=== PATIENT | female | born 1965 | race Caucasian/White ===

== ENCOUNTER 2016-08-27 16:01 | Emergency (ER) | payer OTHER ==
[2016-08-27 16:14] VITALS: BMI 26.6
--- NOTE | 2016-08-27 16:15 | PDOC ---
[id number]DbYQCGXOUEEEFEAAM2XSGQXiNSVYe8zGTVMxfiLZPDJlJ TaLPSAxFiCgo9UXFWQJC KpwiyHuL35mMJfJXNvmxSzBZ8jtKcbs5XO+ JYw0hE73wLujn4nEEskbTbcMPUtmgDaqON4UOenEFlIxB3I/uk01N1KZTgKlmEATMQPCTTDEFBis/ 05Ll3HAADq3yVUMWX8AKb8S76upDypoePBEYuy86iNKP/ PA8cCmuMtbZKtOPN91hOSJYhBT5hRIJ7MCSJUIGXJRNut7SpPhnBrSPZX3d2/ Y7URjHJbTWTr0Z2yApqBJrqvWTIvcEQPVmtDlVVhvnub1wS+ 1MgOFncEgQEuIwVhcbsTP4MHGtWYZpFXfOQENfHN7oJkpIzMS0OK01T21UHC6MYqHeNAU7Ww2XAQ5Npj mLXTirI /1Fkzpp7wAdvXQIE+ TdaLmtq349Csy46XvgVXcxPNYQ4dNWkiRh30D9TUPWygPUnsAzefr00po3zrNyLgSYYMJ15szmNLVWTH uYOVWqtF6ZpZLWEal9mc2wY1WO0pa98L8k9dtUkXCYiUe04 +hAW+8sn2CS2cM08ymI5d37B/0gTHbLbTsTggw/PmlkThPkwYXmB9YwwgGMBgMhNZAIfa0WkritEnqY/ 86l3R1dBmRvzpF8kN1uY6TdBKoriNV708LEe9Ob8WI2ksE7yfgIZvcGiSeb0O6lvombItPzXOU2PLK5f bLRh2yFN0w7FAySY177HWADRi2Xan /7gndtbyNwOEPin3NcZhpU/3G9JYLYR3es/PbdIpD+VGiWuHlWcr9Ke4SljR+ sBKHcWoCxjfcpFPAjeFoQEjRVPZe4RgIyNklncLfvw1iO0VwVpgVn7IkBVBi07TDv2S4kB1VbHq892TA o7bhTbR3VZeFzuoDaZoliWst /j4JQgEGEJxMSrQfp3VvL9bNCr5TCtIN1LVPtNKTDysQ4LV8JLJ1jYgKWBGKYgUBcOrBxIC 08/27/16 17:15 Medical Decision Making - Medical Decision Making 08/27/16 16:09 Pt has chronic hypokalemia; She also has asthma, and states that she used 4 albuterol inhalers prior to arrival which likely knocked her potassium further down. Pt comes to the ER because she feels she needs potassium. Medical problems include asthma, hypokalemia. She states that she lives with her son; she has not left her home secondary to bad bronchitis. Pt feels weak and she feels she has a fever. Pt got the flu shot this year. *DC/Admit/Observation/Transfer Diagnosis at time of Disposition: Bronchitis - Discharge Dispostion Disposition: HOME Condition at time of disposition: Improved - Prescriptions Prescriptions: Albuterol 2.5/Ipratropium 0.5 [Duoneb -] 1 neb NEB Q4H #30 vial Albuterol Sulfate Inhaler - [Ventolin HFA Inhaler -] 1 - 2 inh PO Q4H #1 inhaler - Referrals Referrals: Shoshana Roman MD [Primary Care Provider] - - Patient Instructions Printed Discharge Instructions: DI for Acute Bronchitis
--- NOTE | 2016-08-27 16:48 | PDOC ---
History of Present Illness - General Chief Complaint: Chest Pain Stated Complaint: CHEST PAIN Time Seen by Provider: 08/27/16 16:09 History Source: Patient Exam Limitations: No Limitations - History of Present Illness Initial Comments: 08/27/16 19:51 The patient is a 50 year old female, with a significant past medical history of chronic hypokalemia (unknown still being tested by residential instructor) , SVT, and asthma who presents to the emergency department with possible low potassium. She states that she used 4 albuterol inhalers prior to arrival which she states likely knocked her potassium down. She reports also having a previous recent diagnosis of bronchitis, with associated SOB, mild cough and subjective fevers. She also notes having a productive cough worse at night for about 6 weeks. Patient got the flu shot this year. She denies recent chills, headache, hemoptysis, leg swelling/pain or dizziness. She denies recent nausea, vomit, diarrhea or constipation. Beta Mark Contraindications (Core Measure): Yes: Not Prescribed Past History - Past Medical History Allergies/Adverse Reactions: Allergies Allergy/AdvReac Type Severity Reaction Status Date / Time latex Allergy Mild Verified 04/19/16 17:54 lidocaine Allergy Verified 04/19/16 17:54 paprika Allergy Verified 04/19/16 17:57 peanut Allergy Difficulty Verified 04/19/16 17:54 Breathing procaine HCl [From Novocain] Allergy Verified 04/19/16 17:54 shrimp Allergy Mild Hives Uncoded 04/19/16 17:54 POLYURETHANE Allergy Swelling Uncoded 04/19/16 17:54 Home Medications: Ambulatory Orders Potassium Chloride [K-Tab ER] 10 meq PO BID 02/05/16 Azithromycin [Zithromax Tri-Amandeep (3 DAYS) -] 500 mg PO DAILY #3 tablet 08/27/16 Estradiol [Estrace] 0.5 mg PO DAILY 08/27/16 Anemia: (HYPOKALEMIA) Asthma: Yes Cardiac Disorders: Yes (SVT) Disorders: Yes (right ovarian cyst status post surgery, status post hysterectomy, still has) HTN: Yes (?) Kidney Stones: (Kidney problems.) Suicide Attempt (Hx): No - Surgical History Abdominal Surgery: Yes (hysterectomy and right oophorectomy) - Family Disease History Family Disease History: Diabetes: Mother - Immunization History Td Vaccination: No TDAP Vaccination: No Immunization Up to Date: Yes - Psycho/Social/Smoking Cessation Hx Anxiety: No Suicidal Ideation: No Smoking Status: No Smoking History: Never smoked Years of Tobacco Use: 0 Have you smoked in the past 12 months: No Number of Cigarettes Smoked Daily: 0 Cigars Per Day: 0 Information on smoking cessation initiated: No Hx Alcohol Use: No Drug/Substance Use Hx: No Substance Use Type: None Cardiac Specific PMH - Complaint Specific PMHX Angina: No Cardiac Arrhythmia: No GERD: No Peripheral Vascular Disease: No Review of Systems - Review of Systems Able to Perform ROS?: Yes Comments:: 08/27/16 19:52 CONSTITUTIONAL: +Low potassium and subjective fevers. No reported: Chills, Diaphoresis, Generalized Weakness, Malaise, Loss of Appetite HEENT: +Rhinorrhea. No reported: Nasal Congestion, Throat Pain, Throat Swelling, Difficulty Swallowing, Mouth Swelling, Ear Pain, Eye Pain, Visual Changes CARDIOVASCULAR: No reported: Syncope, Palpitations, Irregular Heart Rate, Lightheadedness, Peripheral Edema RESPIRATORY: +cough and SOB. No reported: Wheezing, Stridor, Hemoptysis GASTROINTESTINAL: No reported: Abdominal pain, Abdominal Distension, Nausea, Vomiting, Diarrhea, Constipation, Melena, Hematochezia GENITOURINARY: No reported: Dysuria, Frequency, Urgency, Hesitancy, Flank Pain, Genital Pain MUSCULOSKELETAL: No reported: Myalgia, Arthralgia, Joint Swelling, Back pain, Neck Pain SKIN: No reported: Rash, Itching, Pallor HEMEATOLOGIC/IMMUNOLOGIC: No reported: Easy Bleeding, Easy Bruising, Lymphadenopathy, Frequent infections ENDOCRINE: No reported: Unexplained Weight Gain, Unexplained Weight Loss, Heat Intolerance , Cold Intolerance NEUROLOGIC: No reported: Headache, Focal Weakness, Paresthesias, Vertigo, Lightheadedness, Unsteady Gait, Seizure, Mental Status Changes, Incontinence PSYCHIATRIC: No reported: Anxiety, Depression *Physical Exam - Vital Signs Last Vital Signs Temp Pulse Resp BP Pulse Ox 98.9 F 87 18 117/78 100 08/27/16 19:22 08/27/16 19:22 08/27/16 19:22 08/27/16 19:22 08/27/16 19:22 - Physical Exam Comments: 08/27/16 19:52 GENERAL: The patient is awake, alert, and fully oriented, Nontoxic - in no acute distress. HEAD: Normocephalic, atraumatic. EYES: extraocular movements intact, sclera anicteric, conjunctiva clear. ENT: Normal voice, Moist mucous membranes. NECK: Normal range of motion, supple LUNGS: Breath sounds equal, clear to auscultation bilaterally. No wheezes, no rhonchi, no rales. HEART: Regular rate and rhythm, without murmur, rub or gallop. ABDOMEN: Soft, nontender, normoactive bowel sounds. No guarding, no rebound.No CVA tenderness EXTREMITIES: Normal range of motion, no edema. No clubbing or cyanosis. No cords , erythema, or tenderness. NEUROLOGICAL: No facial asymmetry, Normal speech. PSYCH: Normal mood, normal affect. SKIN: Warm, Dry, normal turgor. Heart Score/ECG Review - ECG Impressions Comment:: 08/27/16 17:54 Twelve-lead EKG was performed and reviewed by me. There is normal sinus rhythm with a normal rate. Rate of 78 The axis is normal. The intervals are normal. There is normal R wave progression There are no ST or T wave abnormalities. Impression: Normal twelve-lead EKG ED Treatment Course - LABORATORY CBC & Chemistry Diagram: 08/27/16 17:55 08/27/16 17:15 - ADDITIONAL ORDERS Additional order review: Laboratory Results 08/27/16 08/27/16 17:15 16:23 Sodium 140 Potassium 3.6 Chloride 104 Carbon Dioxide 30 Anion Gap 6 L BUN 16 D Creatinine 0.6 Creat Clearance w eGFR > 60 Random Glucose 95 Calcium 8.5 Magnesium 2.1 Total Bilirubin 0.4 D AST 16 D ALT 18 D Alkaline Phosphatase 68 Total Protein 6.8 Albumin 3.9 Urine Color Ltyellow Urine Appearance Clear Urine pH 6.0 Ur Specific [place] 1.016 Urine Protein Negative Urine Glucose (UA) Negative Urine Ketones Negative Urine Blood Negative Urine Nitrite Negative Urine Bilirubin Negative Urine Urobilinogen Negative Ur Leukocyte Esterase Negative Urine HCG, Qual Negative 08/27/16 17:55 RBC 4.40 MCV 86.3 MCHC 33.8 RDW 13.9 MPV 7.6 Neutrophils % 57.9 Lymphocytes % 32.2 D Monocytes % 6.6 Eosinophils % 2.5 D Basophils % 0.8 - Medications Given in the ED: ED Medications Discontinued Medications Generic Name Dose Route Start Last Admin Trade Name Freq PRN Reason Stop Dose Admin Albuterol/Ipratropium 1 amp 08/27/16 18:35 08/27/16 18:35 Duoneb - NEB 08/27/16 18:36 1 amp ONCE ONE Administration Medical Decision Making - Medical Decision Making 08/27/16 17:24 50y F hx of hypokalemia, asthma, preseents with concern for k - pt states she has been having an mild intermittent cough x 6 weeks, has been using her nebs, and is concerned that might be decraesing her K. pt feeling generally weak. endorses some frida tightness c/w with her asthma/bronchitis that she has occasionally. denies any hemoptysis, leg swelling. will ck ekg to scren for k+ deragements will ck cmp, cxr pts sypmtoms inconsistent with acs. 08/27/16 18:23 labs fairly unremarkable K+ 3.6 awaiting cxr 08/27/16 19:07 cxr negative michelle dc the pt with pmd fu return precautions were discussed I discussed the physical exam findings, ancillary test results and final diagnoses with the patient. I answered all of the patient's questions. The patient was satisfied with the care received and felt comfortable with the discharge plan and treatment plan. The patient will call their primary care physician within 24 hours to arrange follow-up and will return to the Emergency Department with any new, persistent or worsening symptoms. 08/27/16 19:53 *DC/Admit/Observation/Transfer Diagnosis at time of Disposition: Bronchitis - Discharge Dispostion Disposition: HOME Condition at time of disposition: Improved Admit: No - Referrals Referrals: Shoshana Roman MD [Primary Care Provider] - - Patient Instructions Printed Discharge Instructions: DI for Acute Bronchitis
[2016-08-27 17:50] LABS: URINE APPEARANCE CLEAR; URINE BILIRUBIN NEGATIVE (NEGATIVE); URINE BLOOD NEGATIVE (NEGATIVE); URINE COLOR LTYELLOW; URINE GLUCOSE (UA) NEGATIVE (NEGATIVE); URINE KETONE NEGATIVE (NEGATIVE); URINE LEUK ESTERASE NEGATIVE (NEGATIVE); URINE NITRITE NEGATIVE (NEGATIVE); URINE PROTEIN NEGATIVE (NEGATIVE); URINE UROBILINOGEN NEGATIVE E.U./dl (0.2-1.0)
[2016-08-27 17:52] LABS: ALBUMIN 3.9 g/dl (3.4-5.0); ALK PHOS 68 U/L (45-117); ANION GAP 6 (8-16); BILIRUBIN,TOTAL 0.4 mg/dL (0.2-1.0); CALCIUM 8.5 mg/dL (8.5-10.1); CO2 30 mmol/L (21-32); CREATININE 0.6 mg/dL (0.55-1.02); GLUCOSE,RANDOM 95 mg/dL (74-106); MAGNESIUM 2.1 mg/dL (1.8-2.4); SGOT/AST 16 U/L (15-37); SGPT/ALT 18 U/L (12-78); TOT PROT 6.8 g/dl (6.4-8.2)
[2016-08-27 18:07] LABS: BASOPHIL 0.8 % (0-2.0); EOSINOPHIL 2.5 % (0-4.5); MCH 29.2 pg (25.7-33.7); MCHC 33.8 g/dl (32.0-36.0); MEAN CELL VOLUME 86.3 fl (80-96); MEAN PLT VOLUME 7.6 fl (7.5-11.1); NEUTROPHILS 57.9 % (42.8-82.8); PLATELET COUNT 232 K/MM3 (134-434); RDW 13.9 % (11.6-15.6)
[2016-08-27] MEDS ORDERED: ALBUTEROL SO4 2.5/IPRATROPIUM 0.5 INH SOL 3 ML VIAL.NEB. NEB ONE ×2 (18:35→19:57)
[2016-08-27 19:22] VITALS: BP 117/78; PULSE 87; TEMP 98.9
--- NOTE | 2016-08-28 13:48 | EKG ---
Test Reason : Blood Pressure : / mmHG Vent. Rate : 078 BPM Atrial Rate : 078 BPM P-R Int : 142 ms QRS Dur : 088 ms QT Int : 400 ms P-R-T Axes : 067 065 054 degrees QTc Int : 456 ms NORMAL SINUS RHYTHM NONSPECIFIC ST ABNORMALITY ABNORMAL ECG WHEN COMPARED WITH ECG OF 19-APR-2016 18:23, NO SIGNIFICANT CHANGE WAS FOUND Confirmed by JO-ANN ALNG MD ([id number]) on 08/28/2016 1:48:12 PM Referred By: Confirmed By:JO-ANN LANG MD
== END 2016-08-27 20:18 | disposition home or self-care (01) ==
LOC: JER 16:01
PROC: 3E0F7GC Introduction of Other Therapeutic Substance into Respiratory Tract, Via Natural or Artificial Opening (ICD-10-PCS; principal; 2016-08-27)
DX: J20.9 Acute bronchitis, unspecified (principal); E87.6 Hypokalemia; J45.909 Unspecified asthma, uncomplicated
CPT/HCPCS: 36415; 71020-TC; 80053; 81003; 83735; 84703; 85025; 93005; 93010; 94640; 99283-25

== ENCOUNTER 2017-02-18 23:24 | Emergency (ER) | payer OTHER ==
[2017-02-19 00:33] VITALS: BP 156/110; PULSE 82; TEMP 97.8; BMI 30.9
--- NOTE | 2017-02-19 00:51 | PDOC ---
History of Present Illness - General History Source: Patient Exam Limitations: No Limitations - History of Present Illness Initial Comments: 02/19/17 01:22 The patient is a 51 year old female, with a significant past medical history of chronic hypokalemia (unknown still being tested by java web services developer) , SVT, Asthma, HTN who presents to the emergency department with diffuse upper abdominal pain for the past several years. Patient states her pain has worsened today and is associated with nausea. Patient denies any vomiting, diarrhea or constipation. Patient also reports occasional bloating. Patient is able to pass flatus and is able to belch. Patient also reports scheduled MRI however has not followed through her GI and PCP. She denied sick contacts, recent illnesses, chest pain, headache or dizziness. She denies fever, chills, dysuria, frequency, urgency or hematuria. Allergies:latex,lidocaine, paprika,peanut, procaine HCl,shrimp,polyurethane Past surgical history: hysterectomy and right oophorectomy, explorative laparoscopy Social history: None PCP: Dr. Jessie Anna <Nancy Lea - Last Filed: 02/19/17 01:22> - General History Source: Patient <Chucky Silva - Last Filed: 02/19/17 03:05> - General Chief Complaint: Pain Stated Complaint: ABD PAIN Time Seen by Provider: 02/19/17 00:38 Past History <Nancy Lea - Last Filed: 02/19/17 01:22> - Past Medical History Anemia: (HYPOKALEMIA) Asthma: Yes Cardiac Disorders: Yes (SVT) Disorders: Yes (right ovarian cyst status post surgery, status post hysterectomy, still has) HTN: Yes (?) Kidney Stones: (Kidney problems.) Suicide Attempt (Hx): No - Surgical History Abdominal Surgery: Yes (hysterectomy and right oophorectomy) - Family Disease History Family Disease History: Diabetes: Mother - Immunization History Td Vaccination: No TDAP Vaccination: No Immunization Up to Date: Yes - Psycho/Social/Smoking Cessation Hx Anxiety: No Suicidal Ideation: No Smoking Status: No Smoking History: Never smoked Years of Tobacco Use: 0 Have you smoked in the past 12 months: No Number of Cigarettes Smoked Daily: 0 Cigars Per Day: 0 Hx Alcohol Use: No Drug/Substance Use Hx: No Substance Use Type: None <Chucky Silva - Last Filed: 02/19/17 03:05> - Past Medical History Allergies/Adverse Reactions: Allergies Allergy/AdvReac Type Severity Reaction Status Date / Time latex Allergy Mild Verified 02/18/17 20:53 lidocaine Allergy Verified 02/18/17 20:53 paprika Allergy Verified 02/18/17 20:53 peanut Allergy Difficulty Verified 02/18/17 20:53 Breathing procaine HCl [From Novocain] Allergy Verified 02/18/17 20:53 shrimp Allergy Mild Hives Uncoded 02/18/17 20:53 POLYURETHANE Allergy Swelling Uncoded 02/18/17 20:53 Home Medications: Ambulatory Orders Potassium Chloride [K-Tab ER] 10 meq PO BID 02/05/16 Albuterol 2.5/Ipratropium 0.5 [Duoneb -] 1 neb NEB Q4H #30 vial 08/27/16 Albuterol Sulfate Inhaler - [Ventolin HFA Inhaler -] 1 - 2 inh PO Q4H #1 inhaler 08/27/16 Estradiol [Estrace] 0.5 mg PO DAILY 08/27/16 Pantoprazole Sodium [Protonix] 40 mg PO DAILY #30 tablet. 02/19/17 Review of Systems - Review of Systems Able to Perform ROS?: Yes Comments:: 02/19/17 01:23 GENERAL/CONSTITUTIONAL: No fever, no lethargy HEAD, EYES, EARS, NOSE AND THROAT: No eye discharge. No ear pain or discharge. No sore throat. CARDIOVASCULAR: No chest pain. RESPIRATORY: No cough, no wheezing. GASTROINTESTINAL: +abdominal pain, nausea. No vomiting, diarrhea or constipation. GENITOURINARY: No dysuria, no change in urine output MUSCULOSKELETAL: No joint pain. No neck or back pain. SKIN: No rash NEUROLOGIC: No headache, loss of consciousness, irritability. ENDOCRINE: No increased thirst. No abnormal weight change. ALLERGIC/IMMUNOLOGIC: No hives or skin allergy. <Nancy Lea - Last Filed: 02/19/17 01:22> *Physical Exam - Vital Signs Last Vital Signs Temp Pulse Resp BP Pulse Ox 97.8 F 82 18 156/110 100 02/19/17 00:32 02/19/17 00:32 02/19/17 00:32 02/19/17 00:32 02/19/17 00:32 - Physical Exam Comments: 02/19/17 01:23 GENERAL: Awake, alert, and fully oriented, in no acute distress HEAD: No signs of trauma EYES: PERRLA, EOMI, sclera anicteric, conjunctiva clear ENT: Auricles normal inspection, hearing grossly normal, nares patent, oropharynx clear without exudates. Moist mucosa NECK: Normal ROM, supple, no lymphadenopathy, JVD, or masses LUNGS: Breath sounds equal, clear to auscultation bilaterally. No wheezes, and no crackles HEART: Regular rate and rhythm, normal S1 and S2, no murmurs, rubs or gallops ABDOMEN: Soft, nontender, normoactive bowel sounds. No guarding, no rebound. No masses EXTREMITIES: Normal range of motion, no edema. No clubbing or cyanosis. No cords, erythema, or tenderness NEUROLOGICAL: Cranial nerves II through XII grossly intact. Normal speech, normal gait SKIN: Warm, Dry, normal turgor, no rashes or lesions note <Nancy Lea - Last Filed: 02/19/17 01:22> - Vital Signs Last Vital Signs Temp Pulse Resp BP Pulse Ox 97.8 F 82 18 156/110 100 02/19/17 00:32 02/19/17 00:32 02/19/17 00:32 02/19/17 00:32 02/19/17 00:32 <Chucky Silva - Last Filed: 02/19/17 03:05> ED Treatment Course - Medications Given in the ED: ED Medications Discontinued Medications Generic Name Dose Route Start Last Admin Trade Name Freq PRN Reason Stop Dose Admin Pantoprazole Sodium 40 mg/ 100 mls @ 200 mls/hr 02/19/17 00:52 02/19/17 01:17 Sodium Chloride IVPB 02/19/17 01:21 Not Given ONCE ONE Ondansetron HCl 4 mg 02/19/17 00:52 02/19/17 01:17 Zofran Injection IVPUSH 02/19/17 00:53 Not Given ONCE STA <Nancy Lea - Last Filed: 02/19/17 01:22> - LABORATORY CBC & Chemistry Diagram: 02/19/17 01:15 02/19/17 01:15 <Chucky Silva - Last Filed: 02/19/17 03:05> Medical Decision Making - Medical Decision Making 02/19/17 03:05 Dr. Silva: The scribe's documentation has been prepared under my direction and personally reviewed by me in its entirery. I confirm that the note above accurately reflects all work, treatment, procedures, and medical decision making performed by me. <Chucky Silva - Last Filed: 02/19/17 03:05> *DC/Admit/Observation/Transfer - Attestations Scribe Attestion: 02/19/17 01:24 Documentation prepared by Nancy Lea, acting as medical receptionist for Chucky Silva MD/DO. <Nancy Lea - Last Filed: 02/19/17 01:22> - Discharge Dispostion Admit: No <Chucky Silva - Last Filed: 02/19/17 03:05> Diagnosis at time of Disposition: GERD (gastroesophageal reflux disease) Qualifiers: Esophagitis presence: esophagitis presence not specified Qualified Code(s): K21.9 - Gastro-esophageal reflux disease without esophagitis - Discharge Dispostion Disposition: HOME Condition at time of disposition: Stable - Referrals Referrals: Shoshana Roman MD [Primary Care Provider] - - Patient Instructions Printed Discharge Instructions: GERD Diet, DI for Gastroesophageal Reflux Disease (GERD)
[2017-02-19] MEDS ORDERED: ONDANSETRON 4 MG/2 ML VIAL IVPUSH STA (00:52)
[2017-02-19] MEDS ORDERED: PANTOPRAZOLE SODIUM 40 MG in SODIUM CHLORIDE 100 ML IVPB ONE (00:52)
[2017-02-19] MEDS ORDERED: SODIUM CHLORIDE 1,000 ML IV STA (00:52)
[2017-02-19] MEDS ORDERED: PANTOPRAZOLE SODIUM 100 ML IVPB ONE (00:57)
[2017-02-19] MEDS ORDERED: ONDANSETRON 4 MG/2 ML VIAL ONE (00:58)
[2017-02-19 01:23] LABS: BASOPHIL 0.8 % (0-2.0); EOSINOPHIL 2.1 % (0-4.5); MCH 29.5 pg (25.7-33.7); MCHC 34.1 g/dl (32.0-36.0); MEAN CELL VOLUME 86.7 fl (80-96); MEAN PLT VOLUME 7.2 fl (7.5-11.1); NEUTROPHILS 66.5 % (42.8-82.8); PLATELET COUNT 250 K/MM3 (134-434); RDW 13.3 % (11.6-15.6); WHITE BLOOD COUNT 7.5 K/mm3 (4.0-10.0)
[2017-02-19 01:35] LABS: INR 0.88 (0.82-1.09); PROTHROMBIN TIME (PATIENT) 9.6 SEC (9.98-11.88)
[2017-02-19 01:49] LABS: ALBUMIN 4.4 g/dl (3.4-5.0); AMYLASE 71 U/L (25-115); ANION GAP 10 (8-16); BILIRUBIN,TOTAL 0.3 mg/dL (0.2-1.0); CALCIUM 9.4 mg/dL (8.5-10.1); CO2 28 mmol/L (21-32); CREATININE 0.7 mg/dL (0.55-1.02); GLUCOSE,RANDOM 101 mg/dL (74-106); MAGNESIUM 2.5 mg/dL (1.8-2.4); SGOT/AST 18 U/L (15-37); SGPT/ALT 28 U/L (12-78); TOT PROT 7.6 g/dl (6.4-8.2)
[2017-02-19 01:50] LABS: ALK PHOS 85 U/L (45-117); CPK 92 IU/L (26-192); TROPONIN I < 0.02 ng/ml (0.00-0.05)
== END 2017-02-19 03:16 | disposition home or self-care (01) ==
LOC: JER 23:24
PROC: 3E033GC Introduction of Other Therapeutic Substance into Peripheral Vein, Percutaneous Approach (ICD-10-PCS; principal; 2017-02-18)
DX: K21.9 Gastro-esophageal reflux disease without esophagitis (principal); E87.6 Hypokalemia; I47.1 Supraventricular tachycardia; J45.909 Unspecified asthma, uncomplicated; I10 Essential (primary) hypertension; Z91.040 Latex allergy status; Z91.010 Allergy to peanuts; Z91.013 Allergy to seafood; Z88.5 Allergy status to narcotic agent
CPT/HCPCS: 36415; 74176-TC; 80053; 82150; 83690; 83735; 84484; 84703; 85025; 85610; 99282-25

== ENCOUNTER → 2017-02-18 | Emergency (ER) | payer OTHER ==
[2017-02-18 20:52] VITALS: BP 150/86; PULSE 95; TEMP 98.4; BMI 30.9
== END | disposition left against medical advice (07) ==
LOC: JER 20:47
DX: Z53.21 Procedure and treatment not carried out due to patient leaving prior to being seen by health care provider (principal)
CPT/HCPCS: 99281-25

== ENCOUNTER 2017-04-03 06:46 | Emergency (ER) | payer OTHER ==
[2017-04-03 07:13] VITALS: TEMP 98.4; BMI 32.5
--- NOTE | 2017-04-03 08:46 | PDOC ---
History of Present Illness - General Chief Complaint: Hematuria Stated Complaint: URINE INFECTION Time Seen by Provider: 04/03/17 07:30 History Source: Patient - History of Present Illness Initial Comments: 04/03/17 08:42 CC: Hematuria Patient is a 51 y.o. female with a PMH of chronic hypokalemia, AI uticaria and multiple ED visits for c/o abdominal pain presents to our facility today c/o acute onset of hematuria. Patient notes that she has been experiencing cramping pain and increased urgency though no dysuria for 2 weeks. Patient denies any fever, chills, shortness of breath or chest pain. Past Surgical: R ovarian resection, partial hysterectomy PMD: Dr. Shoshana XIAO, Latex Allergy Social:(-) nicotine, (+) alcohol 3-4 drinks/monthly, (-) marijuana/cocaine/ heroin Past History - Past Medical History Allergies/Adverse Reactions: Allergies Allergy/AdvReac Type Severity Reaction Status Date / Time latex Allergy Mild Verified 04/03/17 07:13 lidocaine Allergy Verified 04/03/17 07:13 paprika Allergy Verified 04/03/17 07:13 peanut Allergy Difficulty Verified 04/03/17 07:13 Breathing procaine HCl [From Novocain] Allergy Verified 04/03/17 07:13 shrimp Allergy Mild Hives Uncoded 04/03/17 07:13 POLYURETHANE Allergy Swelling Uncoded 04/03/17 07:13 Home Medications: Ambulatory Orders Potassium Chloride [K-Tab ER] 10 meq PO BID 02/05/16 Albuterol 2.5/Ipratropium 0.5 [Duoneb -] 1 neb NEB Q4H #30 vial 08/27/16 Albuterol Sulfate Inhaler - [Ventolin HFA Inhaler -] 1 - 2 inh PO Q4H #1 inhaler 08/27/16 Ciprofloxacin HCl [Cipro] 500 mg PO BID #14 tablet 04/03/17 Ranitidine HCl [Zantac] 300 mg PO BID 04/03/17 Anemia: (HYPOKALEMIA) Asthma: Yes Cardiac Disorders: Yes (SVT) Disorders: Yes (right ovarian cyst status post surgery, status post hysterectomy, still has) HTN: Yes (?) Kidney Stones: (Kidney problems.) - Surgical History Abdominal Surgery: Yes (hysterectomy and right oophorectomy) - Family Disease History Family Disease History: Diabetes: Mother - Immunization History Td Vaccination: No TDAP Vaccination: No Immunization Up to Date: Yes - Suicide/Smoking/Psychosocial Hx Smoking Status: No Smoking History: Never smoked Years of Tobacco Use: 0 Have you smoked in the past 12 months: No Number of Cigarettes Smoked Daily: 0 Cigars Per Day: 0 Hx Alcohol Use: No Drug/Substance Use Hx: No Substance Use Type: None Review of Systems - Review of Systems Constitutional: Yes: Chills. No: Symptoms Reported, See HPI, Diaphoresis, Fever , Loss of Appetite, Malaise, Night Sweats, Unintentional Wgt. Loss, Unexplained wgt Loss, Other HEENTM: No: Symptoms Reported, See HPI, Eye Pain, Blurred Vision, Tearing, Recent change in vision, Double Vision, Cataracts, Ear Pain, Ocular Prothesis, Ear Discharge, Nose Pain, Nose Congestion, Tinnitus, Nose Bleeding, Hearing Loss , Throat Pain, Throat Swelling, Mouth Pain, Dental Problems, Difficulty Swallowing, Mouth Swelling, Other Respiratory: No: Cough, Shortness of Breath Cardiac (ROS): No: Chest Pain, Palpitations ABD/GI: Yes: Abdominal cramping. No: Constipated, Diarrhea, Nausea, Vomiting : Yes: Frequency, Hematuria, Urgency Musculoskeletal: No: Back Pain, Joint Pain Neurological: No: Headache, Numbness Psychiatric: No: Anxiety, Depression Endocrine: Yes: Other (Autoimmune Uticaria) All Other Systems: Reviewed and Negative *Physical Exam - Vital Signs Last Vital Signs Temp Pulse Resp BP Pulse Ox 98.4 F 84 18 126/81 100 04/03/17 07:11 04/03/17 07:11 04/03/17 07:11 04/03/17 07:11 04/03/17 07:11 - Physical Exam General Appearance: Yes: Nourished, Appropriately Dressed HEENT: positive: EOMI, [place] Neck: positive: Trachea midline, Supple Respiratory/Chest: positive: Lungs Clear, Normal Breath Sounds Cardiovascular: positive: S1, S2 Gastrointestinal/Abdominal: positive: Normal Bowel Sounds, Soft Musculoskeletal: positive: Normal Inspection. negative: CVA Tenderness Integumentary: positive: Normal Color, Dry, Warm Neurologic: positive: roof bolter helper II-XII NML intact, Fully Oriented, Alert ED Treatment Course - LABORATORY CBC & Chemistry Diagram: 04/03/17 08:30 04/03/17 08:30 - RADIOLOGY Radiology Studies Ordered: Category Date Time Status KIDNEY / RENAL US [US] Stat Ultrasound 04/03/17 07:55 Stop Req Medical Decision Making - Medical Decision Making 04/04/17 05:43 Patient is a 51 y.o. female c/o acute onset of hematuria with some associated urgency and frequency. Initial Differential Diagnosis is for UTI vs. Pyelonephritis. UA shows 2+ blood and 524 WBC. As patient has a h/o of UTI with similar presentation and resolution with Cipro, patient given 10 day prescription for Ciprofloxacin and instructed to follow up with her PCP. *DC/Admit/Observation/Transfer Diagnosis at time of Disposition: Urinary tract infection - Discharge Dispostion Disposition: HOME Condition at time of disposition: Good Admit: No - Prescriptions Prescriptions: Ciprofloxacin HCl [Cipro] 500 mg PO BID #14 tablet - Referrals Referrals: Shoshana Roman MD [Primary Care Provider] - - Patient Instructions Printed Discharge Instructions: Urinary Tract Infection Additional Instructions: You were evaluated and treated today for a Urinary Tract infection. Please take Cipro twice daily for 7 days and follow up with your polysomnography tech within 1 week. Please return to the Emergency Department should you have chest pain, shortness of breath or severe bleeding during urination.
--- NOTE | 2017-04-03 08:48 | PDOC ---
Attending Attestation - HPI HPI: 04/03/17 08:59 The patient is a 51 year old female, with a significant past medical history of SVT, hypokalemia, asthma, and chronic abdominal pain, who presents to the emergency department with two weeks of suprapubic pressure and cramping with sudden onset of hematuria today. The patient reports a history of non obstructing kidney stones and UTIs. She states she felt the symptoms of a UTI, but thought it was getting better because I have been drinking water and cranberry juice. She reports her suprapubic abdominal pressure and cramping resolved for about 2 days, however, returned today with slight blood in her urine this morning. She denies chest pain, shortness of breath, headache and dizziness. She denies fever, chills, nausea, vomit, diarrhea and constipation. She denies dysuria, frequency, urgency. Allergies: NKDA PCP - Dr. Shoshana Barton - Physicial Exam PE: 04/03/17 08:59 GENERAL: Awake, alert, and fully oriented, in no acute distress HEAD: No signs of trauma EYES: PERRLA, EOMI, sclera anicteric, conjunctiva clear ENT: Auricles normal inspection, hearing grossly normal, nares patent, oropharynx clear without exudates. Moist mucosa NECK: Normal ROM, supple, no lymphadenopathy, JVD, or masses LUNGS: Breath sounds equal, clear to auscultation bilaterally. No wheezes, and no crackles HEART: Regular rate and rhythm, normal S1 and S2, no murmurs, rubs or gallops ABDOMEN: (+) mild suprapubic ttp. No CVA tenderness. Soft, normoactive bowel sounds. No guarding, no rebound. No masses EXTREMITIES: Normal range of motion, no edema. No clubbing or cyanosis. No cords , erythema, or tenderness NEUROLOGICAL: Cranial nerves II-XII intact. Normal speech, normal gait. Sensation intact in upper and lower extremities. 5/5 motor strength in upper and lower extremities. No pronator drift. Finger to nose intact. Rapid alternations intact. SKIN: Warm, Dry, normal turgor, no rashes or lesions noted. - Medical Decision Making 04/03/17 09:00 Documentation prepared by Sylvia Snyder, acting as medical doctor nuclear medicine for Harry Olivares MD, <Sylvia Snyder - Last Filed: 04/03/17 08:59> - Resident Resident Name: Shaylee Manzanares - ED Attending Attestation I have performed the following: I have examined & evaluated the patient, The case was reviewed & discussed with the resident, I agree w/resident's findings & plan, Exceptions are as noted - Medical Decision Making 04/03/17 09:16 Vital Signs Temp Pulse Resp BP Pulse Ox 98.4 F 84 18 126/81 100 04/03/17 07:11 04/03/17 07:11 04/03/17 07:11 04/03/17 07:11 04/03/17 07:11 51-year-old female with history of chronic hypokalemia, SVT, asthma, hypertension, urinary tract infections and kidney stones, chronic upper abdominal pain under evaluation by her doctor presents with dysuria and hematuria but no flank pain. Denies fevers. Patient suspects that she's having cystitis or urinary tract infection. I agree, I suspect that the patient is likely having urinary tract infection. We 'll obtain urinalysis for culture. Given her history of hypokalemia we'll also check a potassium level and replete as needed. 04/03/17 09:43 CBC, BMP 04/03/17 08:30 04/03/17 08:30 CMP Sodium 141 mmol/L (136-145) 04/03/17 08:30 Potassium 3.7 mmol/L (3.5-5.1) 04/03/17 08:30 Chloride 103 mmol/L (98-107) 04/03/17 08:30 Carbon Dioxide 29 mmol/L (21-32) 04/03/17 08:30 Anion Gap 9 (8-16) 04/03/17 08:30 BUN 21 mg/dL (7-18) H D 04/03/17 08:30 Creatinine 0.9 mg/dL (0.55-1.02) D 04/03/17 08:30 Creat Clearance w eGFR > 60 (>60) 04/03/17 08:30 Random Glucose 102 mg/dL (74-106) 04/03/17 08:30 Calcium 9.4 mg/dL (8.5-10.1) 04/03/17 08:30 Total Bilirubin 0.3 mg/dL (0.2-1.0) 04/03/17 08:30 AST 14 U/L (15-37) L D 04/03/17 08:30 ALT 22 U/L (12-78) D 04/03/17 08:30 Alkaline Phosphatase 89 U/L (45-117) 04/03/17 08:30 Total Protein 7.6 g/dl (6.4-8.2) 04/03/17 08:30 Albumin 4.5 g/dl (3.4-5.0) 04/03/17 08:30 Urine Test Results Urine Color Yellow 04/03/17 09:01 Urine Appearance Cloudy 04/03/17 09:01 Urine pH 5.0 (5.0-8.0) 04/03/17 09:01 Urine Protein 1+ (NEGATIVE) H 04/03/17 09:01 Urine Glucose (UA) Negative (NEGATIVE) 04/03/17 09:01 Urine Ketones Negative (NEGATIVE) 04/03/17 09:01 Urine Blood 2+ (NEGATIVE) H 04/03/17 09:01 Urine Nitrite Negative (NEGATIVE) 04/03/17 09:01 Urine Bilirubin Negative (NEGATIVE) 04/03/17 09:01 Urine RBC 68 /hpf (0-3) 04/03/17 09:01 Urine WBC 524 /hpf (3-5) 04/03/17 09:01 Ur Epithelial Cells Few /hpf (FEW) 04/03/17 09:01 Urine Mucus Moderate 04/03/17 09:01 Pt with UTI. Pt reports she responded well with cipro Microbiology reviewed. Will write cipro <Harry Olivares - Last Filed: 04/03/17 09:43>
[2017-04-03 08:51] LABS: BASOPHIL 0.7 % (0-2.0); EOSINOPHIL 1.5 % (0-4.5); MCH 29.2 pg (25.7-33.7); MCHC 33.6 g/dl (32.0-36.0); MEAN CELL VOLUME 86.8 fl (80-96); MEAN PLT VOLUME 7.5 fl (7.5-11.1); NEUTROPHILS 67.9 % (42.8-82.8); PLATELET COUNT 272 K/MM3 (134-434); RDW 13.4 % (11.6-15.6); WHITE BLOOD COUNT 9.8 K/mm3 (4.0-10.0)
[2017-04-03 09:14] LABS: ALBUMIN 4.5 g/dl (3.4-5.0); ALK PHOS 89 U/L (45-117); ANION GAP 9 (8-16); BILIRUBIN,TOTAL 0.3 mg/dL (0.2-1.0); CALCIUM 9.4 mg/dL (8.5-10.1); CO2 29 mmol/L (21-32); CREATININE 0.9 mg/dL (0.55-1.02); GLUCOSE,RANDOM 102 mg/dL (74-106); SGOT/AST 14 U/L (15-37); SGPT/ALT 22 U/L (12-78); TOT PROT 7.6 g/dl (6.4-8.2)
[2017-04-03 09:26] LABS: URINE APPEARANCE CLOUDY; URINE BILIRUBIN NEGATIVE (NEGATIVE); URINE BLOOD 2+ (NEGATIVE); URINE COLOR YELLOW; URINE GLUCOSE (UA) NEGATIVE (NEGATIVE); URINE KETONE NEGATIVE (NEGATIVE); URINE NITRITE NEGATIVE (NEGATIVE); URINE UROBILINOGEN NEGATIVE mg/dL (0.2-1.0)
[2017-04-03 09:30] LABS: URINE LEUK ESTERASE 3+ (NEGATIVE); URINE PROTEIN 1+ (NEGATIVE)
[2017-04-03 09:31] LABS: CALCIUM OXALATE CRYSTALS MANY /hpf (NONE SEEN); URINE MUCUS MODERATE; URINE RBC 68 /hpf (0-3); URINE WBC 524 /hpf (3-5)
[2017-04-03] MEDS ORDERED: CIPROFLOXACIN 500 MG TABLET (RESTRICTED TO ID) PO ONE (09:57)
[2017-04-03 11:22] VITALS: BP 122/79; PULSE 82
--- NOTE | 2017-04-05 07:36 | PDOC ---
Patient Follow-up (Call Back) - Post ED Follow - Up Chief Complaint: Hematuria Reason for Call Back: Abnwl. Microbiology (Urine culture positive. Pt. treated with cipro. Waiting for sensitivity.) - Post ED Follow - Up Condition at time of discharge: Good Disposition at time of original discharge: HOME
== END 2017-04-03 11:22 | disposition home or self-care (01) ==
LOC: JER 06:46
DX: N39.0 Urinary tract infection, site not specified (principal); R31.9 Hematuria, unspecified; I10 Essential (primary) hypertension; E87.6 Hypokalemia; Z87.442 Personal history of urinary calculi; Z87.440 Personal history of urinary (tract) infections
CPT/HCPCS: 36415; 80053; 81003; 81015; 85025; 87086; 87186; 99284-25

== ENCOUNTER 2017-06-06 23:10 | Emergency (ER) | payer OTHER ==
[2017-06-06 23:19] VITALS: PULSE 86; TEMP 98.8; BMI 30.9
--- NOTE | 2017-06-07 01:08 | PDOC ---
History of Present Illness - General History Source: Patient Exam Limitations: No Limitations - History of Present Illness Initial Comments: 06/07/17 02:14 The patient is a 51 year old female, with a significant past medical history of supraventricular tachycardia, hypokalemia, asthma who presents to the emergency department complaining of dizziness beginning prior to arrival. The patient states that she has hypokalemia and believes that her potassium may be low as she has had similar experiences of dizziness in the past when her potassium was low. The patient also reports associated symptoms of generalized weakness secondary to the dizziness. The patient reports recent weight gain and states that she has been grieving the loss of her father who recently . She denies recent fevers, chills, or headache. She denies recent nausea, vomit, diarrhea or constipation. She denies recent chest pain or shortness of breath. Past surgical history: Partial hysterectomy. Primary Care Physician: Dr. oRman <Edvin Miranda - Last Filed: 06/07/17 02:14> <Kathy Navarro - Last Filed: 06/08/17 02:17> - General Chief Complaint: Weakness Stated Complaint: FATIGUE Time Seen by Provider: 06/07/17 00:06 Past History <Edvin Miranda - Last Filed: 06/07/17 02:14> - Past Medical History Anemia: (HYPOKALEMIA) Asthma: Yes Cardiac Disorders: Yes (SVT) COPD: No Disorders: Yes (right ovarian cyst status post surgery, status post hysterectomy, still has) HTN: Yes (?) Kidney Stones: (Kidney problems.) - Surgical History Abdominal Surgery: Yes (hysterectomy and right oophorectomy) - Family Disease History Family Disease History: Diabetes: Mother - Immunization History Td Vaccination: No TDAP Vaccination: No Immunization Up to Date: Yes - Suicide/Smoking/Psychosocial Hx Smoking Status: No Smoking History: Never smoked Years of Tobacco Use: 0 Have you smoked in the past 12 months: No Number of Cigarettes Smoked Daily: 0 Cigars Per Day: 0 Hx Alcohol Use: No Drug/Substance Use Hx: No Substance Use Type: None <Kathy Navarro - Last Filed: 06/08/17 02:17> - Past Medical History Allergies/Adverse Reactions: Allergies Allergy/AdvReac Type Severity Reaction Status Date / Time latex Allergy Mild Verified 06/06/17 23:14 lidocaine Allergy Verified 06/06/17 23:14 paprika Allergy Verified 06/06/17 23:14 peanut Allergy Difficulty Verified 06/06/17 23:14 Breathing procaine HCl [From Novocain] Allergy Verified 06/06/17 23:14 shrimp Allergy Mild Hives Uncoded 06/06/17 23:14 POLYURETHANE Allergy Swelling Uncoded 06/06/17 23:14 Home Medications: Ambulatory Orders Potassium Chloride [K-Tab ER] 10 meq PO BID 02/05/16 Albuterol 2.5/Ipratropium 0.5 [Duoneb -] 1 neb NEB Q4H #30 vial 08/27/16 Albuterol Sulfate Inhaler - [Ventolin HFA Inhaler -] 1 - 2 inh PO Q4H #1 inhaler 08/27/16 Ranitidine HCl [Zantac] 300 mg PO BID 04/03/17 Diphenhydramine HCl [Benadryl -] 25 mg PO Q6H 06/06/17 Review of Systems - Review of Systems Comments:: 06/07/17 02:20 GENERAL/CONSTITUTIONAL: +Generalized weakness. No fever or chills. HEAD, EYES, EARS, NOSE AND THROAT: No change in vision. No ear pain or discharge. No sore throat. CARDIOVASCULAR: No chest pain or shortness of breath. RESPIRATORY: No cough, wheezing, or hemoptysis. GASTROINTESTINAL: No nausea, vomiting, diarrhea or constipation. GENITOURINARY: No dysuria, frequency, or change in urination. MUSCULOSKELETAL: No joint or muscle swelling or pain. No neck or back pain. SKIN: No rash NEUROLOGIC: +Dizziness. No headache, loss of consciousness, or change in strength/sensation. ENDOCRINE: No increased thirst. No abnormal weight change. HEMATOLOGIC/LYMPHATIC: No anemia, easy bleeding, or history of blood clots. ALLERGIC/IMMUNOLOGIC: No hives or skin allergy. <Edvin Miranda - Last Filed: 06/07/17 02:14> *Physical Exam - Vital Signs Last Vital Signs Temp Pulse Resp BP Pulse Ox 98.8 F 86 16 158/104 99 06/06/17 23:17 06/06/17 23:17 06/06/17 23:17 06/06/17 23:17 06/06/17 23:17 - Physical Exam Comments: 06/07/17 02:21 GENERAL: Awake, alert, and fully oriented, in no acute distress HEAD: No signs of trauma EYES: PERRLA, EOMI, sclera anicteric, conjunctiva clear ENT: Auricles normal inspection, hearing grossly normal, nares patent, oropharynx clear without exudates. Moist mucosa NECK: Normal ROM, supple, no lymphadenopathy, JVD, or masses LUNGS: Breath sounds equal, clear to auscultation bilaterally. No wheezes, and no crackles HEART: +Atrial fibrillation. Normal S1 and S2, no murmurs, rubs or gallops ABDOMEN: Soft, nontender, normoactive bowel sounds. No guarding, no rebound. No masses EXTREMITIES: Normal range of motion, no edema. No clubbing or cyanosis. No cords, erythema, or tenderness NEUROLOGICAL: Cranial nerves II through XII grossly intact. Normal speech, normal gait SKIN: Warm, Dry, normal turgor, no rashes or lesions noted. <Edvin Miranda - Last Filed: 06/07/17 02:14> - Vital Signs Last Vital Signs Temp Pulse Resp BP Pulse Ox 98.8 F 86 16 158/104 99 06/06/17 23:17 06/06/17 23:17 06/06/17 23:17 06/06/17 23:17 06/06/17 23:17 <Kathy Navarro - Last Filed: 06/08/17 02:17> ED Treatment Course - LABORATORY CBC & Chemistry Diagram: 06/07/17 02:01 06/07/17 02:01 <Kathy Navarro - Last Filed: 06/08/17 02:17> Medical Decision Making - Medical Decision Making 06/08/17 02:16 Pt comes with fatigue and dehydration and concern that she may be hypokalemic, as she is chronically hypo K and she takes K+ supplements at home, as prescribed by her doctors. Labs here and exam is normal TSH normal. Pt will be hydrated and given a low dose of K+. Home with PMD follow up. <Kathy Navarro - Last Filed: 06/08/17 02:17> *DC/Admit/Observation/Transfer - Attestations Scribe Attestion: 06/07/17 02:23 Documentation prepared by Edvin Miranda, acting as medical record librarian for Kathy Navarro MD. <Edvin Miranda - Last Filed: 06/07/17 02:14> - Discharge Dispostion Admit: No <Kathy Navarro - Last Filed: 06/08/17 02:17> Diagnosis at time of Disposition: Dehydration, Fatigue - Discharge Dispostion Disposition: HOME Condition at time of disposition: Stable - Referrals Referrals: Shoshana Roman MD [Primary Care Provider] - - Patient Instructions Printed Discharge Instructions: Fatigue (Alternative Therapy), DI for Dehydration -- Adult, DI for Fatigue - Post Discharge Activity
[2017-06-07 02:19] LABS: BASOPHIL 0.9 % (0-2.0); EOSINOPHIL 1.8 % (0-4.5); MCH 29.5 pg (25.7-33.7); MCHC 33.9 g/dl (32.0-36.0); MEAN CELL VOLUME 87.1 fl (80-96); MEAN PLT VOLUME 7.1 fl (7.5-11.1); NEUTROPHILS 60.1 % (42.8-82.8); PLATELET COUNT 220 K/MM3 (134-434); WHITE BLOOD COUNT 7.2 K/mm3 (4.0-10.0)
[2017-06-07 02:44] LABS: ALBUMIN 4.2 g/dl (3.4-5.0); ALK PHOS 70 U/L (45-117); ANION GAP 7 (8-16); BILIRUBIN,TOTAL 0.3 mg/dL (0.2-1.0); CO2 28 mmol/L (21-32); CREATININE 0.7 mg/dL (0.55-1.02); GLUCOSE,RANDOM 85 mg/dL (74-106); MAGNESIUM 2.3 mg/dL (1.8-2.4); SGOT/AST 16 U/L (15-37); SGPT/ALT 20 U/L (12-78); TOT PROT 7.2 g/dl (6.4-8.2)
[2017-06-07] MEDS ORDERED: SODIUM CHLORIDE 0.9% 500 ML INFUS.BAG IV ONE (03:45)
[2017-06-07] MEDS ORDERED: POTASSIUM CHLORIDE TABS 20 MEQ TABLET.ER (FP) PO ONE ×2 (03:46→04:07)
[2017-06-07] MEDS ORDERED: POTASSIUM CHLORIDE ORAL LIQUID 20 MEQ/15 ML ONE ×2 (04:10→04:14)
[2017-06-07 04:36] VITALS: BP 144/99
--- NOTE | 2017-06-09 23:03 | EKG ---
Test Reason : Blood Pressure : / mmHG Vent. Rate : 074 BPM Atrial Rate : 074 BPM P-R Int : 154 ms QRS Dur : 090 ms QT Int : 394 ms P-R-T Axes : 062 047 040 degrees QTc Int : 437 ms NORMAL SINUS RHYTHM NORMAL ECG WHEN COMPARED WITH ECG OF 27-AUG-2016 16:33, NO SIGNIFICANT CHANGE WAS FOUND Confirmed by ANNA LEIGH MD ([id number]) on 06/09/2017 11:03:37 PM Referred By: Confirmed By:ANNA LEIGH MD
== END 2017-06-07 04:45 | disposition home or self-care (01) ==
LOC: JER 23:10
PROC: 3E0337Z Introduction of Electrolytic and Water Balance Substance into Peripheral Vein, Percutaneous Approach (ICD-10-PCS; principal; 2017-06-06)
DX: E86.0 Dehydration (principal); R53.83 Other fatigue; I47.1 Supraventricular tachycardia; J45.909 Unspecified asthma, uncomplicated; E87.6 Hypokalemia
CPT/HCPCS: 36415; 80053; 83735; 84443; 85025; 93005; 93010; 96360; 99282-25

== ENCOUNTER 2017-09-11 18:27 | Emergency (ER) | payer OTHER ==
[2017-09-11 18:44] VITALS: BMI 30.9
--- NOTE | 2017-09-11 19:57 | PDOC ---
History of Present Illness - General History Source: Patient Exam Limitations: No Limitations - History of Present Illness Initial Comments: 09/11/17 22:54 The patient is a 51-year-old female, with a significant past medical history of svt, hypokalemia, asthma, kidney stones, and gerd, who presents to the ED with right upper quadrant pain.The patient describes the pain as intermittent, sharp in sensation, radiating to her back, with associated shortness of breath. The pain is aching, intermittent. Pt notes the pain is currently substantially better and alsmost resolved. The patient has experienced this pain before and was worked up in the past at [facility]. She reports having a CT scan and US a few weeks ago that showed gallstones. The pain she is experiencing today is familiar and consistent with prior episodes. The pain is worse with fatty foods and usually starts fairly immediately. The patient reports fever, chills, nausea, vomiting, or diarrhea. She denies any urinary symptoms or changes in her bowel movements. Allergies: latex, lidocaine, peanut, paprika, procaine HCL Surgical History: Hysterectomy and right oophorectomy Social History: No reported tobacco, alcohol, or drug use PCP: Dr. Dianne Martin <Xiomara Lou - Last Filed: 09/11/17 22:53> <Sesar Casiano - Last Filed: 09/11/17 23:31> - General Chief Complaint: Pain, Acute Stated Complaint: PAIN/SOB Time Seen by Provider: 09/11/17 18:54 Past History <Xiomara Lou - Last Filed: 09/11/17 22:53> - Past Medical History Anemia: (HYPOKALEMIA) Asthma: Yes Cardiac Disorders: Yes (SVT) COPD: No Disorders: Yes (right ovarian cyst status post surgery, status post hysterectomy, still has) HTN: Yes (?) Kidney Stones: (Kidney problems.) - Surgical History Abdominal Surgery: Yes (hysterectomy and right oophorectomy) - Family Disease History Family Disease History: Diabetes: Mother - Immunization History Td Vaccination: No TDAP Vaccination: No Immunization Up to Date: Yes - Suicide/Smoking/Psychosocial Hx Smoking Status: No Smoking History: Never smoked Years of Tobacco Use: 0 Have you smoked in the past 12 months: No Number of Cigarettes Smoked Daily: 0 Cigars Per Day: 0 Information on smoking cessation initiated: No Hx Alcohol Use: No Drug/Substance Use Hx: No Substance Use Type: None <OhSesar - Last Filed: 09/11/17 23:31> - Past Medical History Allergies/Adverse Reactions: Allergies Allergy/AdvReac Type Severity Reaction Status Date / Time latex Allergy Mild Verified 09/11/17 18:41 lidocaine Allergy Verified 09/11/17 18:41 paprika Allergy Verified 09/11/17 18:41 peanut Allergy Difficulty Verified 09/11/17 18:41 Breathing procaine HCl [From Novocain] Allergy Verified 09/11/17 18:41 shrimp Allergy Mild Hives Uncoded 09/11/17 18:41 POLYURETHANE Allergy Swelling Uncoded 09/11/17 18:41 Home Medications: Ambulatory Orders Potassium Chloride [K-Tab ER] 10 meq PO BID 02/05/16 Ranitidine HCl [Zantac] 300 mg PO BID 04/03/17 Diphenhydramine HCl [Benadryl -] 25 mg PO Q6H 06/06/17 Aspirin [ASA -] 81 mg PO DAILY 09/11/17 Melatonin 3 mg PO PRN PRN 09/11/17 Abd/GI Specific PMHX - Complaint Specific PMHX GERD: No GI Ulcer Disease: No <Sesar Casiano - Last Filed: 09/11/17 23:31> Review of Systems - Review of Systems Able to Perform ROS?: Yes Comments:: 09/11/17 22:54 CONSTITUTIONAL: No reported: Fever, Chills, Diaphoresis, Generalized Weakness, Malaise, Loss of Appetite HEENT: No reported: Rhinorrhea, Nasal Congestion, Throat Pain, Throat Swelling, Difficulty Swallowing, Mouth Swelling, Ear Pain, Eye Pain, Visual Changes CARDIOVASCULAR: No reported: Chest Pain, Syncope, Palpitations, Irregular Heart Rate, Lightheadedness, Peripheral Edema RESPIRATORY: Reported: Shortness of Breath No reported: Cough, SOB with Exertion, Orthopnea, Wheezing, Stridor, Hemoptysis GASTROINTESTINAL Reported: Abdominal Pain No reported: Abdominal Distension, Nausea, Vomiting, Diarrhea, Constipation, Melena, Hematochezia GENITOURINARY: No reported: Dysuria, Frequency, Urgency, Hesitancy, Flank Pain, Genital Pain MUSCULOSKELETAL: No reported: Myalgia, Arthralgia, Joint Swelling, Back pain, Neck Pain SKIN: No reported: Rash, Itching, Pallor HEMEATOLOGIC/IMMUNOLOGIC: No reported: Easy Bleeding, Easy Bruising, Lymphadenopathy, Frequent infections ENDOCRINE: No reported: Unexplained Weight Gain, Unexplained Weight Loss, Heat Intolerance , Cold Intolerance NEUROLOGIC: No reported: Headache, Focal Weakness, Paresthesias, Vertigo, Lightheadedness, Unsteady Gait, Seizure, Mental Status Changes, Incontinence PSYCHIATRIC: No reported: Anxiety, Depression <Xiomara Lou - Last Filed: 09/11/17 22:53> *Physical Exam - Vital Signs Last Vital Signs Temp Pulse Resp BP Pulse Ox 99 F 80 20 133/92 100 09/11/17 18:42 09/11/17 18:42 09/11/17 18:42 09/11/17 18:42 09/11/17 18:42 - Physical Exam Comments: 09/11/17 22:54 GENERAL: The patient is awake, alert, and fully oriented, Nontoxic - in no acute distress. HEAD: Normocephalic, atraumatic. EYES: extraocular movements intact, sclera anicteric, conjunctiva clear. ENT: Normal voice, Moist mucous membranes. NECK: Normal range of motion, supple LUNGS: Breath sounds equal, clear to auscultation bilaterally. No wheezes, no rhonchi, no rales. HEART: Regular rate and rhythm, without murmur, rub or gallop. ABDOMEN: (+)Mild right upper quadrant tenderness. Soft. No guarding, no rebound.No CVA tenderness EXTREMITIES: Normal range of motion, no edema. No clubbing or cyanosis. No cords, erythema, or tenderness. NEUROLOGICAL: No facial assymetry, Normal speech, PSYCH: Normal mood, normal affect. SKIN: Warm, Dry, normal turgor <Xiomara Lou - Last Filed: 09/11/17 22:53> - Vital Signs Last Vital Signs Temp Pulse Resp BP Pulse Ox 99 F 80 20 133/92 100 09/11/17 18:42 09/11/17 18:42 09/11/17 18:42 09/11/17 18:42 09/11/17 18:42 <OhAamirSesar - Last Filed: 09/11/17 23:31> Heart Score/ECG Review - ECG Impressions Comment:: 09/11/17 20:06 Twelve-lead EKG was performed and reviewed by me. There is normal sinus rhythm with a normal rate. rate of 78 The axis is normal. The intervals are normal. There is normal R wave progression There are no ST or T wave abnormalities. Impression: Normal twelve-lead EKG <Sesar Casiano - Last Filed: 09/11/17 23:31> ED Treatment Course - LABORATORY CBC & Chemistry Diagram: 09/11/17 19:47 09/11/17 19:47 - ADDITIONAL ORDERS Additional order review: Laboratory Results 09/11/17 09/11/17 09/11/17 21:46 19:47 19:47 PT with INR INR Sodium 142 Potassium 3.3 L Chloride 107 Carbon Dioxide 25 Anion Gap 10 BUN 15 Creatinine 0.6 Creat Clearance w eGFR > 60 Random Glucose 114 H Calcium 8.4 L Total Bilirubin 0.4 D AST 17 ALT 17 Alkaline Phosphatase 85 Creatine Kinase 82 Troponin I < 0.02 B-Natriuretic Peptide 104.22 Total Protein 7.1 Albumin 4.1 Lipase 232 Urine Color Straw Urine Appearance Clear Urine pH 7.0 D Ur Specific [place] 1.012 Urine Protein Negative Urine Glucose (UA) Negative Urine Ketones Trace H Urine Blood Negative Urine Nitrite Negative Urine Bilirubin Negative Urine Urobilinogen Negative Ur Leukocyte Esterase Negative 09/11/17 19:47 PT with INR 10.60 INR 0.94 Sodium Potassium Chloride Carbon Dioxide Anion Gap BUN Creatinine Creat Clearance w eGFR Random Glucose Calcium Total Bilirubin AST ALT Alkaline Phosphatase Creatine Kinase Troponin I B-Natriuretic Peptide Total Protein Albumin Lipase Urine Color Urine Appearance Urine pH Ur Specific [place] Urine Protein Urine Glucose (UA) Urine Ketones Urine Blood Urine Nitrite Urine Bilirubin Urine Urobilinogen Ur Leukocyte Esterase 09/11/17 19:47 RBC 4.30 MCV 86.2 MCHC 34.3 RDW 13.4 MPV 7.7 Neutrophils % 72.5 D Lymphocytes % 21.4 D Monocytes % 3.9 Eosinophils % 1.4 Basophils % 0.8 <Xiomara Lou - Last Filed: 09/11/17 22:53> - LABORATORY CBC & Chemistry Diagram: 09/11/17 19:47 09/11/17 19:47 <Sesar Casiano - Last Filed: 09/11/17 23:31> Medical Decision Making - Medical Decision Making 09/11/17 19:54 51y F hx of svt, hypokalemia, asthma, kidney stones, gerd, presents with sob and associated RUQ abdominal pain, pt states she was well until sh ehad some pressure like pain in the RUQ that radiates to the back, described as a severe aching. pt also endorses sob with the pain. pt states sometimes the pain radiates to the epigastrium. pt noets she has been having epigastric pain for a year, was referred to the ED by PMD to [facility] for abd pain, had a US and CT that showed +gall stones. Pain is worse after eating, especiall fatty foods, starts relatively soon after eating. pt does endorse occasional mcbride (approx 1 block), sh ewas referred to cardiology for workup of thi sDOe pt denies any current cp, vomiting, fever/chills, cough, hemoptysis, dysuria, change in bm, on exam pt has mild RUQ tenderness she is otherwise very well appearing, smiling and joking around with her friends no rebound/guarding ddx likely cholelithiasis will obtain blood work, GB US will give toradol 09/11/17 21:36 K noted a bit low, will repete with 40meq 09/11/17 23:29 RUQ US neg for gall stones pt feelnig improved will dc the pt with PMD and GI fu return precautions were discusesd I discussed the physical exam findings, ancillary test results and final diagnoses with the patient. I answered all of the patient's questions. The patient was satisfied with the care received and felt comfortable with the discharge plan and treatment plan. The patient will call their primary care physician within 24 hours to arrange follow-up and will return to the Emergency Department with any new, persistent or worsening symptoms. <Sesar Casiano - Last Filed: 09/11/17 23:31> *DC/Admit/Observation/Transfer - Attestations Scribe Attestion: 09/11/17 22:57 Documentation prepared by Xiomara Lou, acting as program medical director for Sesar Casiano MD. <Xiomara Lou - Last Filed: 09/11/17 22:53> - Discharge Dispostion Admit: No <Sesar Casiano - Last Filed: 09/11/17 23:31> Diagnosis at time of Disposition: Hypokalemia Abdominal pain Qualifiers: Abdominal location: right upper quadrant Qualified Code(s): R10.11 - Right upper quadrant pain - Discharge Dispostion Disposition: HOME Condition at time of disposition: Improved - Referrals Referrals: Dianne Martin [Primary Care Provider] - - Patient Instructions Printed Discharge Instructions: DI for Abdominal Pain-Adult Additional Instructions: Return to the emergency department immediately with ANY new, persistent or worsening symptoms including worsening abdominal pain, fevers, inability to tolerate oral intake, chest pain, shortness of breath or any other concerns. Stay well hydrated. You MUST call and follow up with your doctor in 4-5 days for further evaluation. Your emergency department visit is not complete without a followup with your doctor for reevaluation. Please make sure your doctor reviews the results of your emergency evaluation. Print Language: CITIZEN OF [place] - Post Discharge Activity
[2017-09-11] MEDS ORDERED: KETOROLAC TROMETHAMINE 30 MG/1 ML VIAL IVPUSH ONE (19:59)
[2017-09-11] MEDS ORDERED: KETOROLAC TROMETHAMINE 30 MG/1 ML VIAL ONE (20:15)
[2017-09-11 20:29] LABS: BASO % 0.8 % (0-2.0); EOS % 1.4 % (0-4.5); HEMATOCRIT 37.1 % (32.4-45.2); HEMOGLOBIN 12.7 GM/dL (10.7-15.3); LYMPH % 21.4 % (8-40); MCH 29.6 pg (25.7-33.7); MCHC 34.3 g/dl (32.0-36.0); MEAN CELL VOLUME 86.2 fl (80-96); MEAN PLT VOLUME 7.7 fl (7.5-11.1); MONO % 3.9 % (3.8-10.2); NEUT % 72.5 % (42.8-82.8); PLATELET COUNT 238 K/MM3 (134-434); RDW 13.4 % (11.6-15.6); WHITE BLOOD COUNT 6.3 K/mm3 (4.0-10.0)
[2017-09-11 20:39] LABS: INR 0.94 (0.82-1.09); PROTHROMBIN TIME (PATIENT) 10.6 SEC (9.98-11.88)
[2017-09-11 21:04] LABS: ALBUMIN 4.1 g/dl (3.4-5.0); ANION GAP 10 (8-16); BLOOD UREA NITROGEN 15 mg/dL (7-18); CALCIUM 8.4 mg/dL (8.5-10.1); CHLORIDE 107 mmol/L (98-107); CO2 25 mmol/L (21-32); CREATININE 0.6 mg/dL (0.55-1.02); GLUCOSE,RANDOM 114 mg/dL (74-106); POTASSIUM 3.3 mmol/L (3.5-5.1); SGOT/AST 17 U/L (15-37); SODIUM 142 mmol/L (136-145)
[2017-09-11 21:16] LABS: ALK PHOS 85 U/L (45-117); BILIRUBIN,TOTAL 0.4 mg/dL (0.2-1.0); N-TERMINAL BNP 104.22 pg/ml (5-125); SGPT/ALT 17 U/L (12-78); TOT PROT 7.1 g/dl (6.4-8.2)
[2017-09-11] MEDS ORDERED: POTASSIUM CHLORIDE TABS 20 MEQ TABLET.ER (FP) PO ONE ×2 (21:34→23:50)
[2017-09-11 21:53] LABS: URINE APPEARANCE CLEAR; URINE BILIRUBIN NEGATIVE (NEGATIVE); URINE BLOOD NEGATIVE (NEGATIVE); URINE COLOR STRAW; URINE GLUCOSE (UA) NEGATIVE (NEGATIVE); URINE KETONE TRACE (NEGATIVE); URINE LEUK ESTERASE NEGATIVE (NEGATIVE); URINE NITRITE NEGATIVE (NEGATIVE); URINE PROTEIN NEGATIVE (NEGATIVE); URINE UROBILINOGEN NEGATIVE mg/dL (0.2-1.0)
[2017-09-12 00:03] VITALS: BP 126/78; PULSE 89; TEMP 98.5
--- NOTE | 2017-09-12 10:04 | EKG ---
Test Reason : Blood Pressure : / mmHG Vent. Rate : 078 BPM Atrial Rate : 078 BPM P-R Int : 152 ms QRS Dur : 086 ms QT Int : 390 ms P-R-T Axes : 059 044 036 degrees QTc Int : 444 ms NORMAL SINUS RHYTHM NORMAL ECG WHEN COMPARED WITH ECG OF 07-JUN-2017 02:24, NO SIGNIFICANT CHANGE WAS FOUND Confirmed by MARCO A VALENZUELA MD ([id number]) on 09/12/2017 10:04:16 AM Referred By: Confirmed By:MARCO A VALENZUELA MD
== END 2017-09-12 00:03 | disposition home or self-care (01) ==
LOC: JER 18:27
DX: E87.6 Hypokalemia (principal); R10.11 Right upper quadrant pain; K21.9 Gastro-esophageal reflux disease without esophagitis; J45.909 Unspecified asthma, uncomplicated; Z86.79 Personal history of other diseases of the circulatory system
CPT/HCPCS: 36415; 76705-TC; 80053; 81003; 82550; 83690; 83880; 84484; 85025; 85610; 93005; 93010; 99283-25

== ENCOUNTER 2017-11-27 16:05 | Emergency (ER) | payer OTHER ==
[2017-11-27 16:17] VITALS: TEMP 99.6; BMI 32.5
--- NOTE | 2017-11-27 16:18 | PDOC ---
Rapid Medical Evaluation Time Seen by Provider: 11/27/17 16:15 Medical Evaluation: Allergies Allergy/AdvReac Type Severity Reaction Status Date / Time latex Allergy Mild Verified 09/11/17 18:41 lidocaine Allergy Verified 09/11/17 18:41 paprika Allergy Verified 09/11/17 18:41 peanut Allergy Difficulty Verified 09/11/17 18:41 Breathing procaine HCl [From Novocain] Allergy Verified 09/11/17 18:41 shrimp Allergy Mild Hives Uncoded 09/11/17 18:41 POLYURETHANE Allergy Swelling Uncoded 09/11/17 18:41 11/27/17 16:15 The patient presents with a chief complaint of: Hypokalemia. Feels dizzy and lightheaded. Has hx of hypokalemia I have performed a brief in-person evaluation of this patient; Pertinent physical exam findings: ambulatory, in no respiratory distress, appears well. RRR no murmurs I have ordered the following: CBC, CMP, EKG The patient will proceed to the ED for further evaluation. 11/27/17 16:17
[2017-11-27 17:10] LABS: BASO % 0.6 % (0-2.0); EOS % 1.9 % (0-4.5); HEMATOCRIT 40.4 % (32.4-45.2); HEMOGLOBIN 13.6 GM/dL (10.7-15.3); LYMPH % 21.7 % (8-40); MCH 29.1 pg (25.7-33.7); MCHC 33.6 g/dl (32.0-36.0); MEAN CELL VOLUME 86.6 fl (80-96); MONO % 6.5 % (3.8-10.2); NEUT % 69.3 % (42.8-82.8); PLATELET COUNT 276 K/MM3 (134-434); RBC 4.66 M/mm3 (3.60-5.2); WHITE BLOOD COUNT 6.8 K/mm3 (4.0-10.0)
[2017-11-27 17:53] LABS: ANION GAP 8 (8-16); BILIRUBIN,TOTAL 0.7 mg/dL (0.2-1.0); BLOOD UREA NITROGEN 17 mg/dL (7-18); CALCIUM 8.7 mg/dL (8.5-10.1); CHLORIDE 106 mmol/L (98-107); CO2 28 mmol/L (21-32); CREATININE 0.9 mg/dL (0.55-1.02); GLUCOSE,RANDOM 80 mg/dL (74-106); POTASSIUM 3.8 mmol/L (3.5-5.1); SGOT/AST 20 U/L (15-37); SGPT/ALT 22 U/L (12-78); SODIUM 142 mmol/L (136-145); TOT PROT 7.2 g/dl (6.4-8.2)
[2017-11-27 17:54] LABS: ALK PHOS 82 U/L (45-117)
--- NOTE | 2017-11-27 18:19 | PDOC ---
History of Present Illness - General History Source: Patient Exam Limitations: No Limitations <Madyson Ley - Last Filed: 11/27/17 18:23> - General History Source: Patient Exam Limitations: No Limitations - History of Present Illness Initial Comments: 11/27/17 18:33 The patient is a 52 year old female with a significant PMH of chronic hypokalemia, chronic knee pain, SVT, asthma, and GERD who presents to the emergency department for evaluation of dizziness and hypokalemia. The patient reports she has been intermittently dizzy and generally weak over the past 3 days which is consistent with prior hypokalemic episodes. She reports increasing her prescribed potassium intake to 30 MeQ KCl daily over the past 3 days, 10 more than her prescribed 20 MeQ to some relief. She reports taking Ibuprofen and her inhaler within the past week as she had cold-like symptoms including cough and congestion. She also notes minimal liquid PO today. The patient also notes bilateral knee swelling and pain. As per RME, the patients potassium was 3.8 on arrival. The patient denies chest pain, shortness of breath, and headache. Denies fever, chills, nausea, vomit, diarrhea and constipation. Denies dysuria, frequency, urgency and hematuria. Allergies: Lidocaine, Latex, Procaine HCl. Past surgical history: Hysterectomy. Right oophorectomy. Social history: No reported cigarette, alcohol, or drug use. PCP: Dr. Dianne Martin <Harry Noel - Last Filed: 11/27/17 18:42> - General Chief Complaint: Revisit, Lab Variance Stated Complaint: DIZZINESS (POTASSIUM PROBLEM) Time Seen by Provider: 11/27/17 16:15 Past History - Past Medical History Anemia: (HYPOKALEMIA) Asthma: Yes Cardiac Disorders: Yes (SVT) COPD: No Disorders: Yes (right ovarian cyst status post surgery, status post hysterectomy, still has) HTN: Yes (?) Kidney Stones: (Kidney problems.) - Surgical History Abdominal Surgery: Yes (hysterectomy and right oophorectomy) - Family Disease History Family Disease History: Diabetes: Mother - Immunization History Td Vaccination: No TDAP Vaccination: No Immunization Up to Date: Yes - Suicide/Smoking/Psychosocial Hx Smoking Status: No Smoking History: Never smoked Years of Tobacco Use: 0 Have you smoked in the past 12 months: No Number of Cigarettes Smoked Daily: 0 Cigars Per Day: 0 Hx Alcohol Use: No Drug/Substance Use Hx: No Substance Use Type: None <Madyson Ley - Last Filed: 11/27/17 18:23> <Harry Noel - Last Filed: 11/27/17 18:42> - Past Medical History Allergies/Adverse Reactions: Allergies Allergy/AdvReac Type Severity Reaction Status Date / Time latex Allergy Mild Verified 11/27/17 16:15 lidocaine Allergy Verified 11/27/17 16:15 paprika Allergy Verified 11/27/17 16:15 peanut Allergy Difficulty Verified 11/27/17 16:15 Breathing procaine HCl [From Novocain] Allergy Verified 11/27/17 16:15 shrimp Allergy Mild Hives Uncoded 11/27/17 16:15 POLYURETHANE Allergy Swelling Uncoded 11/27/17 16:15 Home Medications: Ambulatory Orders Potassium Chloride [K-Tab ER] 20 meq PO BID 02/05/16 Ranitidine HCl [Zantac] 300 mg PO BID 04/03/17 Diphenhydramine HCl [Benadryl -] 25 mg PO Q6H 06/06/17 Aspirin [ASA -] 81 mg PO DAILY 09/11/17 Melatonin 3 mg PO PRN PRN 09/11/17 Albuterol Sulfate Inhaler - [Ventolin Hfa Inhaler -] 1 inh PO Q4H PRN 11/27/17 Review of Systems - Review of Systems Able to Perform ROS?: Yes Comments:: 11/27/17 18:33 GENERAL/CONSTITUTIONAL: (+) Generalized weakness. No fever or chills. HEAD, EYES, EARS, NOSE AND THROAT: No change in vision. No ear pain or discharge. No sore throat. CARDIOVASCULAR: No chest pain or shortness of breath. RESPIRATORY: No cough, wheezing, or hemoptysis. GASTROINTESTINAL: No nausea, vomiting, diarrhea or constipation. GENITOURINARY: No dysuria, frequency, or change in urination. MUSCULOSKELETAL: No joint or muscle swelling or pain. No neck or back pain. SKIN: No rash NEUROLOGIC: (+) Intermittent dizziness. No headache, vertigo, loss of consciousness, or change in strength. ENDOCRINE: No increased thirst. No abnormal weight change. HEMATOLOGIC/LYMPHATIC: No anemia, easy bleeding, or history of blood clots. ALLERGIC/IMMUNOLOGIC: No hives or skin allergy. <Harry Noel - Last Filed: 11/27/17 18:42> *Physical Exam - Vital Signs Last Vital Signs Temp Pulse Resp BP Pulse Ox 99.6 F 95 H 18 129/76 95 11/27/17 16:15 11/27/17 16:15 11/27/17 16:15 11/27/17 16:15 11/27/17 16:15 <Madyson Ley - Last Filed: 11/27/17 18:23> - Vital Signs Last Vital Signs Temp Pulse Resp BP Pulse Ox 99.6 F 95 H 18 129/76 95 11/27/17 16:15 11/27/17 16:15 11/27/17 16:15 11/27/17 16:15 11/27/17 16:15 - Physical Exam Comments: 11/27/17 18:42 GENERAL: Awake, alert, and fully oriented, in no acute distress HEAD: No signs of trauma EYES: PERRLA, EOMI, sclera anicteric, conjunctiva clear ENT: Auricles normal inspection, hearing grossly normal, nares patent, oropharynx clear without exudates. Moist mucosa NECK: Normal ROM, supple, no lymphadenopathy, JVD, or masses LUNGS: Breath sounds equal, clear to auscultation bilaterally. No wheezes, and no crackles HEART: Regular rate and rhythm, normal S1 and S2, no murmurs, rubs or gallops ABDOMEN: Soft, nontender, normoactive bowel sounds. No guarding, no rebound. No masses EXTREMITIES: Normal range of motion, no edema. No clubbing or cyanosis. No cords, erythema, or tenderness NEUROLOGICAL: Cranial nerves II through XII grossly intact. Normal speech, normal gait SKIN: Warm, Dry, normal turgor, no rashes or lesions noted. <Harry Noel - Last Filed: 11/27/17 18:42> ED Treatment Course - LABORATORY CBC & Chemistry Diagram: 11/27/17 17:03 11/27/17 17:03 - ADDITIONAL ORDERS Additional order review: Laboratory Results 11/27/17 17:03 Sodium 142 Potassium 3.8 Chloride 106 Carbon Dioxide 28 Anion Gap 8 BUN 17 Creatinine 0.9 Creat Clearance w eGFR > 60 Random Glucose 80 Calcium 8.7 Total Bilirubin 0.7 D AST 20 ALT 22 Alkaline Phosphatase 82 Total Protein 7.2 Albumin 4.0 11/27/17 17:03 RBC 4.66 MCV 86.6 MCHC 33.6 RDW 14.0 MPV 7.0 L Neutrophils % 69.3 Lymphocytes % 21.7 Monocytes % 6.5 Eosinophils % 1.9 Basophils % 0.6 <Madyson Ley - Last Filed: 11/27/17 18:23> - LABORATORY CBC & Chemistry Diagram: 11/27/17 17:03 11/27/17 17:03 - ADDITIONAL ORDERS Additional order review: Laboratory Results 11/27/17 17:03 Sodium 142 Potassium 3.8 Chloride 106 Carbon Dioxide 28 Anion Gap 8 BUN 17 Creatinine 0.9 Creat Clearance w eGFR > 60 Random Glucose 80 Calcium 8.7 Total Bilirubin 0.7 D AST 20 ALT 22 Alkaline Phosphatase 82 Total Protein 7.2 Albumin 4.0 11/27/17 17:03 RBC 4.66 MCV 86.6 MCHC 33.6 RDW 14.0 MPV 7.0 L Neutrophils % 69.3 Lymphocytes % 21.7 Monocytes % 6.5 Eosinophils % 1.9 Basophils % 0.6 <Harry Noel - Last Filed: 11/27/17 18:42> Medical Decision Making - Medical Decision Making 11/27/17 18:12 MS Rubio is a 52-year-old female with a history of hypokalemia which is been present for the past 10 years. She notes dizziness and weakness intermittently when she has abnormal labs No fevers or chills No chest pain Pt presented today for evaluation of her potassium Examination benign Labs reveal K= 3.8 Pt requesting po Potassium = 40mEq Will administer and discharge to home Pt also notes that she has bilateral knee pain which is chronic She will be going to physical therapy Will give crutches <Madyson Ley - Last Filed: 11/27/17 18:23> *DC/Admit/Observation/Transfer - Discharge Dispostion Decision to Admit order: No <Madyson Ley - Last Filed: 11/27/17 18:23> - Attestations Scribe Attestion: 11/27/17 18:34 Documentation prepared by Harry Noel, acting as medical van driver for Madyson Ley MD. <Harry Noel - Last Filed: 11/27/17 18:42> Diagnosis at time of Disposition: Hypokalemia - Discharge Dispostion Disposition: HOME Condition at time of disposition: Stable - Referrals Referrals: Dianne Martin [Primary Care Provider] - - Patient Instructions Printed Discharge Instructions: DI for Hypokalemia - Post Discharge Activity
[2017-11-27] MEDS ORDERED: POTASSIUM CHLORIDE TABS 20 MEQ TABLET.ER (FP) PO ONE ×2 (18:22→18:31)
[2017-11-27] MEDS ORDERED: POTASSIUM CHLORIDE ORAL LIQUID 20 MEQ/15 ML ONE (18:34)
[2017-11-27 18:41] VITALS: BP 125/91; PULSE 71
--- NOTE | 2017-11-28 11:18 | EKG ---
Test Reason : Blood Pressure : / mmHG Vent. Rate : 072 BPM Atrial Rate : 072 BPM P-R Int : 152 ms QRS Dur : 088 ms QT Int : 376 ms P-R-T Axes : 053 047 039 degrees QTc Int : 411 ms NORMAL SINUS RHYTHM NONSPECIFIC ST ABNORMALITY WHEN COMPARED WITH ECG OF 11-SEP-2017 18:48, NO SIGNIFICANT CHANGE WAS FOUND Confirmed by MARCO A VALENZUELA MD ([id number]) on 11/28/2017 11:17:44 AM Referred By: Confirmed By:MARCO A VALENZUELA MD
== END 2017-11-27 18:43 | disposition home or self-care (01) ==
LOC: JER 16:05
DX: E87.6 Hypokalemia (principal); I10 Essential (primary) hypertension; K21.9 Gastro-esophageal reflux disease without esophagitis; M25.561 Pain in right knee; M25.562 Pain in left knee; G89.29 Other chronic pain; Z79.82 Long term (current) use of aspirin; Z87.09 Personal history of other diseases of the respiratory system
CPT/HCPCS: 36415; 80053; 85025; 93005; 93010; 99283-25

== ENCOUNTER 2018-01-25 20:20 | Emergency (ER) | payer OTHER ==
[2018-01-25 20:31] VITALS: BP 146/68; PULSE 85; TEMP 98.8; BMI 30.9
--- NOTE | 2018-01-25 20:49 | PDOC ---
History of Present Illness <Kathy Navarro - Last Filed: 01/25/18 22:29> - History of Present Illness Initial Comments: 01/25/18 21:44 Juju Rubio is a 52yo woman with a PMH of GERD, recently diagnosed with a gastric ulcer (per pt, at OSH), asthma, SVT, chronic hypokalemia who presents today with intermittent heartburn and subsequent shortness of breath over the past week. She also reports a "buzzing" sensation in her extremities that she says she always experiences when her potassium is low. She reports that last week Friday she had hives and took 50mg diphehydramine q4hr for 2 days at home. During this time, she states that she was not able to eat or drink much. She felt improved on Friday and went out at night with her son; she tried to drink some soda and immediately experienced her typical heartburn symptoms. Since that time, she reports that she has had heartburn on and off. Additionally, she has experienced some shortness of breath, which she states always occurs when she gets any significant heartburn symptoms. She was told previously that her GERD causes asthma, but she has not had to use her inhaler for several months other than during the current episode. Ms Rubio states that she was recently seen by GI for GERD and was diagnosed with a stomach ulcer. She has a scope scheduled next week. The GI physician told her to stop taking ranitidine at home and prescribed omeprazole; however, Ms Rubio was not taking either one at home. She has been taking flaxseed oil instead as she prefers natural remedies. However, she did try taking 40mg PO omeprazole in the morning and 150mg PO ranitidine at night for the past 2 days. Over the past 2 days, she tried taking 1 Tums tablet yesterday and one today. She also used her inhaler on Friday, Friday, and today with some imrpovement in symptoms. She was hesitant to use her inhaler more than once per day as she saw on the internet that albuterol can cause potassium levels to drop , and she was concerned that her heart would stop if her potassium got too low. However, she denies any current cardiac symptoms including chest pain, palpitations, racing heart, or diaphoresis. Her heartburn symptoms are not associated with activity. She also reports that she follows with a director of managed services and had a recent normal stress test. Ms Rubio states that she finally presented to the hospital today because, though she was feeling somewhat improved last night and this morning, she felt worse again this afternoon and felt it was time to be evaluated. <Jaqueline Osuna - Last Filed: 01/25/18 22:43> - General Chief Complaint: Pain Stated Complaint: PAIN Time Seen by Provider: 01/25/18 20:45 Past History <Kathy Navarro - Last Filed: 01/25/18 22:29> - Past Medical History Anemia: (HYPOKALEMIA) Asthma: Yes Cardiac Disorders: Yes (SVT) COPD: No DVT: No GI Disorders: Yes (ulcer) Disorders: Yes (right ovarian cyst status post surgery, status post hysterectomy, still has) HTN: Yes (?) Kidney Stones: (Kidney problems.) Psychiatric Problems: Yes (anxiety, depression) Other medical history: Adrenal disease - Surgical History Abdominal Surgery: Yes (hysterectomy and right oophorectomy) - Family Disease History Family Disease History: Diabetes: Mother - Immunization History Td Vaccination: No TDAP Vaccination: No Immunization Up to Date: Yes - Suicide/Smoking/Psychosocial Hx Smoking Status: No Smoking History: Never smoked Years of Tobacco Use: 0 Have you smoked in the past 12 months: No Number of Cigarettes Smoked Daily: 0 Cigars Per Day: 0 Information on smoking cessation initiated: No Hx Alcohol Use: No Drug/Substance Use Hx: No Substance Use Type: None <Jaqueline Osuna - Last Filed: 01/25/18 22:43> - Past Medical History Allergies/Adverse Reactions: Allergies Allergy/AdvReac Type Severity Reaction Status Date / Time latex Allergy Mild Verified 11/27/17 16:15 lidocaine Allergy Verified 11/27/17 16:15 paprika Allergy Verified 11/27/17 16:15 peanut Allergy Difficulty Verified 11/27/17 16:15 Breathing procaine HCl [From Novocain] Allergy Verified 11/27/17 16:15 shrimp Allergy Mild Hives Uncoded 11/27/17 16:15 POLYURETHANE Allergy Swelling Uncoded 11/27/17 16:15 Home Medications: Ambulatory Orders Potassium Chloride [K-Tab ER] 20 meq PO BID 02/05/16 Ranitidine HCl [Zantac] 300 mg PO BID 04/03/17 Diphenhydramine HCl [Benadryl -] 25 mg PO Q6H 06/06/17 Aspirin [ASA -] 81 mg PO DAILY 09/11/17 Melatonin 3 mg PO PRN PRN 09/11/17 Albuterol Sulfate Inhaler - [Ventolin Hfa Inhaler -] 1 inh PO Q4H PRN 11/27/17 Review of Systems - Review of Systems Comments:: 01/25/18 21:55 General: No fevers, no chills, no malaise. +anorexia HEENT: No changes in vision, no changes in hearing, no congestion, no sore throat CV: No chest pain, no palpitations, no LE edema Pulm: +SOB. No cough, no wheezing GI: +Heartburn, +nausea. No vomiting, no change in bowel habits, no melena : No frequency, no urgency, no dysuria Musc: No back pain, no joint swelling, no recent injury Skin: +Frequent hives. No new lesions, no erythema Endo: No excessive thirst, no heat/cold intolerance Heme: No unusual bruising or bleeding, no swollen glands Neuro: No syncope, no numbness/tingling, no focal weakness. +"buzzing" sensation Vasc: No claudication Psych: +Anxiety. No SI or HI <Jaqueline Osuna - Last Filed: 01/25/18 22:43> *Physical Exam - Vital Signs Last Vital Signs Temp Pulse Resp BP Pulse Ox 98.8 F 85 20 146/68 100 01/25/18 20:24 01/25/18 20:24 01/25/18 20:24 01/25/18 20:24 01/25/18 20:24 <Kathy Navarro - Last Filed: 01/25/18 22:29> - Vital Signs Last Vital Signs Temp Pulse Resp BP Pulse Ox 98.8 F 85 20 146/68 100 01/25/18 20:24 01/25/18 20:24 01/25/18 20:24 01/25/18 20:24 01/25/18 20:24 - Physical Exam Comments: 01/25/18 21:56 General: Comfortable, no acute distress. HEENT: PERRL, EOMI, MMM, voice normal, normal neck ROM, no LAD Cards: RRR, no murmur appreciated Pulm: Comfortable on room air, clear to auscultation bilaterally. No wheezing or crackles appreciated. Able to speak easily without any dyspnea. Abd: Soft, nondistended. Mild epigenetic tenderness. : No CVA tenderness Ext: Atraumatic. No LE edema. ROM intact. Strength 5/5 and equal bilaterally Vasc: Extremities WWP. Palpable radial and pedal pulses bilaterally Neuro: A&Ox3, CN grossly intact, normal speech, motor/sensory grossly intact and symmetric Psych: Appears anxious <Jaqueline Osuna - Last Filed: 01/25/18 22:43> ED Treatment Course - LABORATORY CBC & Chemistry Diagram: 01/25/18 22:00 - ADDITIONAL ORDERS Additional order review: Laboratory Results 01/25/18 22:00 Sodium 141 Potassium 4.2 Chloride 107 Carbon Dioxide 25 Anion Gap 9 BUN 15 Creatinine 0.8 Creat Clearance w eGFR > 60 Random Glucose 93 Calcium 8.8 - Medications Given in the ED: ED Medications Discontinued Medications Generic Name Dose Route Start Last Admin Trade Name Freq PRN Reason Stop Dose Admin Al Hydroxide/Mg Hydroxide 30 ml 01/25/18 21:23 01/25/18 22:00 Mylanta Oral Suspension - PO 01/25/18 21:24 30 ml ONCE ONE Administration <Kathy Navarro - Last Filed: 01/25/18 22:29> - LABORATORY CBC & Chemistry Diagram: 01/25/18 22:00 <Jaqueline Osuna - Last Filed: 01/25/18 22:43> Medical Decision Making - Medical Decision Making 01/25/18 22:03 Juju Rubio is a 52yo woman with a PMH of GERD, recently diagnosed gastric ulcer, asthma, hypokalemia and SVT who presents today complaining of heartburn and subsequent SOB for the past week. She describes her symptoms as her typical heartburn, and she reports unusual eating habits over the past week. She has some subjective SOB was was not dyspnic on exam, easily able to carry on a conversation without any shortness of breath, and had clear lungs on exam. She does not have any chest pain or diaphoresis, symptoms are not associated with activity, and reports a recent stress test, so there is little concern for cardiac cause of her symptoms. - Most likely cause of her heartburn is her previously diagnosed GERD. Symptoms are typical for her, and she has also taken high doses of Benadryl lately and reports very little oral intake over the past week - Will give maalox, sucralfate and reassess symptoms - Due to patient concern regarding hypokalemia, will check BMP 01/25/18 22:37 - BMP returned, potassium 4.2. - If EKG is normal, will discharge home - Discussed heartburn management with Ms Rice. She stated understanding and agreement with this plan. She has GI followup scheduled already next week. Seen and discussed with Dr Navarro. <Jaqueline Osuna - Last Filed: 01/25/18 22:43> *DC/Admit/Observation/Transfer - Discharge Dispostion Decision to Admit order: No <Kathy Navarro - Last Filed: 01/25/18 22:29> <Jaqueline Osuna - Last Filed: 01/25/18 22:43> Diagnosis at time of Disposition: Gastritis and duodenitis - Referrals Referrals: Dianne Martin [Primary Care Provider] - - Patient Instructions Printed Discharge Instructions: Gastritis (Alternative Therapy), Gastritis, [place] Diet Additional Instructions: Discharge instructions: - You were seen in the ED for burning stomach pain and shortness of breath. You are most likely having worsening of your GERD symptoms. There was no sign of any lung or breathing difficulty when you were examined. - Recommend keeping a food diary to keep track of which foods irritate your stomach. You should be receiving information on bland food diets - You may use over the counter medications such as Tums or Maalox to help relieve your GERD symptoms. Please take as directed on the package - You should follow up with your primary physician within the next 1-2 weeks to discuss your worsening symptoms and help manage your diet - Please keep your previously scheduled appointment with your GI physician. - Recommend follow up with your leather goods sales representative to address your chronic hypokalemia, though your potassium levels were normal in the ED today - Post Discharge Activity
--- NOTE | 2018-01-25 20:53 | PDOC ---
Attending Attestation - HPI HPI: 01/25/18 22:14 Patient is a 52 year old female with a significant past medical history of chronic hypokalemia, chronic knee pain, SVT, asthma, and GERD , who presents to the ED with complaints of shortness of breath as well as associated heartburn that began last week. Patient reports experiencing what she believed to be an allergic reaction, prompting her to take benadryl for 36 hours, stating she did not eat or drink while taking the medication. She reports following the 36 hours, she went out with her son and upon taking a sip of soda experiencing intense heartburn that she states has gotten worse over time prompting her to come into the ED for further evaluation. Patient reports experiencing shortness of breath secondary to heartburn. She reports not taking any medication for pain. Denies chest pain, Sob. Denies nausea, vomiting. Denies contact with sick individuals, out of state travelling. Denies dysuria, hematuria. Denies constipation, diarrhea. Denies any other symptoms. Allergies: Lidocaine, Latex, Procaine HCl. Social history: No smoking. No alcohol. No illicit drugs. Surgical history: Hysterectomy. Right oophorectomy PMD: Dr. Dianne Martin - Physicial Exam PE: 01/25/18 22:29 GENERAL: Awake, alert, and fully oriented, in no acute distress HEAD: No signs of trauma EYES: PERRLA, EOMI, sclera anicteric, conjunctiva clear ENT: Auricles normal inspection, hearing grossly normal, nares patent, oropharynx clear without exudates. Moist mucosa NECK: Normal ROM, supple, no lymphadenopathy, JVD, or masses LUNGS: Breath sounds equal, clear to auscultation bilaterally. No wheezes, and no crackles HEART: Regular rate and rhythm, normal S1 and S2, no murmurs, rubs or gallops ABDOMEN: +Minimal epigastric tenderness. Soft, normoactive bowel sounds. No guarding, no rebound. No masses EXTREMITIES: Normal range of motion, no edema. No clubbing or cyanosis. No cords, erythema, or tenderness NEUROLOGICAL: Cranial nerves II through XII grossly intact. Normal speech, normal gait SKIN: Warm, Dry, normal turgor, no rashes or lesions noted. <Douglas Gillette - Last Filed: 01/25/18 22:29> - Resident Resident Name: Jaqueline Osuna - ED Attending Attestation I have performed the following: I have examined & evaluated the patient, The case was reviewed & discussed with the resident, I agree w/resident's findings & plan - Medical Decision Making 01/25/18 22:31 Pt comes with her usual gastritis, which was worsened by benadyls that she had been taking around the clock on an empty stomach. Pt also complains that she has chronic hypoK and she wants to make sure that her K is normal. BMP is normal. EKG is NSR. She is stable for discahrge. <Kathy Navarro - Last Filed: 01/26/18 00:24> Heart Score/ECG Review - Argillite Argillite: Normal - P and HI Delta Wave(s) Present: No WPW: No - ST and T Early Repolarization: No Non Specific ST-T Wave changes: No Flattened T Waves: No Prolonged Q-T Interval: No <Kathy Navarro - Last Filed: 01/26/18 00:24>
[2018-01-25] MEDS ORDERED: MAG HYDROX/AL HYDROX/SIMETH 30 ML UNIT-DOSE CUP PO ONE (21:23)
[2018-01-25] MEDS ORDERED: SUCRALFATE 1 GM TABLET (FP) ONE (21:44)
[2018-01-25] MEDS ORDERED: MAG HYDROX/AL HYDROX/SIMETH 30 ML UNIT-DOSE CUP ONE (21:44)
[2018-01-25] MEDS ORDERED: SUCRALFATE 1 GM TABLET (FP) PO SCH (22:00)
[2018-01-25 22:17] LABS: ANION GAP 9 (8-16); BLOOD UREA NITROGEN 15 mg/dL (7-18); CALCIUM 8.8 mg/dL (8.5-10.1); CHLORIDE 107 mmol/L (98-107); CO2 25 mmol/L (21-32); CREATININE 0.8 mg/dL (0.55-1.02); GLUCOSE,RANDOM 93 mg/dL (74-106); POTASSIUM 4.2 mmol/L (3.5-5.1); SODIUM 141 mmol/L (136-145)
--- NOTE | 2018-01-26 13:26 | EKG ---
Test Reason : Blood Pressure : / mmHG Vent. Rate : 080 BPM Atrial Rate : 080 BPM P-R Int : 150 ms QRS Dur : 086 ms QT Int : 380 ms P-R-T Axes : 051 034 027 degrees QTc Int : 438 ms NORMAL SINUS RHYTHM NONSPECIFIC ST ABNORMALITY ABNORMAL ECG WHEN COMPARED WITH ECG OF 27-NOV-2017 17:10, NO SIGNIFICANT CHANGE WAS FOUND Confirmed by KAI SHERWOOD MD ([id number]) on 01/26/2018 1:26:37 PM Referred By: Confirmed By:KAI SHERWOOD MD
== END 2018-01-25 22:57 | disposition home or self-care (01) ==
LOC: JER 20:20
DX: K29.90 Gastroduodenitis, unspecified, without bleeding (principal); K25.9 Gastric ulcer, unspecified as acute or chronic, without hemorrhage or perforation; K21.9 Gastro-esophageal reflux disease without esophagitis; J45.909 Unspecified asthma, uncomplicated; E87.6 Hypokalemia; I47.1 Supraventricular tachycardia
CPT/HCPCS: 36415; 80048; 93005; 93010; 99282-25

== ENCOUNTER 2018-02-20 22:48 | Emergency (ER) | payer OTHER ==
[2018-02-20] MEDS ORDERED: SODIUM CHLORIDE 1,000 ML IV STA (23:18)
[2018-02-20 23:44] VITALS: BP 156/98; PULSE 103; TEMP 98.5; BMI 28.3
[2018-02-21 00:25] LABS: PLATELET COUNT 322 K/MM3 (134-434); WHITE BLOOD COUNT 12.4 K/mm3 (4.0-10.0)
[2018-02-21 00:29] LABS: ALBUMIN 4.1 g/dl (3.4-5.0); ANION GAP 7 (8-16); BILIRUBIN,TOTAL 0.2 mg/dL (0.2-1.0); BLOOD UREA NITROGEN 19 mg/dL (7-18); CALCIUM 8.2 mg/dL (8.5-10.1); CHLORIDE 105 mmol/L (98-107); CO2 30 mmol/L (21-32); GLUCOSE,RANDOM 127 mg/dL (74-106); SGPT/ALT 26 U/L (12-78); SODIUM 142 mmol/L (136-145); TOT PROT 7.3 g/dl (6.4-8.2)
[2018-02-21 00:29] LABS: HEMATOCRIT 40.5 % (32.4-45.2); HEMOGLOBIN 13.6 GM/dL (10.7-15.3); RBC 4.71 M/mm3 (3.60-5.2)
[2018-02-21 00:30] LABS: MCH 28.9 pg (25.7-33.7); MCHC 33.7 g/dl (32.0-36.0); MEAN CELL VOLUME 85.9 fl (80-96); MEAN PLT VOLUME 7.6 fl (7.5-11.1); RDW 13.5 % (11.6-15.6)
--- NOTE | 2018-02-21 00:30 | PDOC ---
History of Present Illness - General Chief Complaint: Chest Pain Stated Complaint: CHEST PAIN Time Seen by Provider: 02/20/18 23:03 History Source: Patient Exam Limitations: No Limitations - History of Present Illness Initial Comments: 02/21/18 03:06 Best Contact: PCP: Dianne Martin/[facility] Pmhx: Chronic hypokalemia, gallbladder dysfunction, gastritis, eye urticaria, asthma/no history of intubation a recent admission Pshx: 2011: Right ovarian cystectomy and oophorectomy; : Partial MARION Allergies:NKDA FH:0 Social Hx: Cigarettes/ 0 Alcohol/ 0 Drugs/0 LMP:N/A 52-year-old female presents to the emergency department after feeling anxiety. Patient states she's been having pleuritic nonradiating intermittent mid sternal chest pain which is exacerbated on touch and deep inspiration and alleviated at rest. Patient also states 3 days ago, she got in contact with an unknown toxin at her friend's house which caused her to have an ALLERGIC reaction. She was at another emergency Department/[facility] and wishes treated with IV steroids and discharged on prednisone 10 meq 2 tablets by mouth daily and epinephrine pen. Patient states she was taking Benadryl 50-75 mg every 3-4 hours for her insomnia and prednisone 20-30 mg every 2-3 hours over the past 7 hours 2 days ago. Patient states she came to the ER today she feels anxious. Patient denies fever, chills, nausea/vomiting, headache, dizziness, lightheadedness, facial pains, earache, sore throat, nasal congestion, neck stiffness/pain, back pains, chest pain, shortness of breath, abdominal pains, flank pains, urinary symptoms, extremity numbness or tingling sensation. Past History - Past Medical History Allergies/Adverse Reactions: Allergies Allergy/AdvReac Type Severity Reaction Status Date / Time latex Allergy Mild Verified 02/20/18 23:25 lidocaine Allergy Verified 02/20/18 23:25 paprika Allergy Verified 02/20/18 23:25 peanut Allergy Difficulty Verified 02/20/18 23:25 Breathing procaine HCl [From Novocain] Allergy Verified 02/20/18 23:25 shrimp Allergy Mild Hives Uncoded 02/20/18 23:25 POLYURETHANE Allergy Swelling Uncoded 02/20/18 23:25 Home Medications: Ambulatory Orders Potassium Chloride [K-Tab ER] 20 meq PO BID 02/05/16 Ranitidine HCl [Zantac] 300 mg PO BID 04/03/17 Diphenhydramine HCl [Benadryl -] 25 mg PO Q6H 06/06/17 Aspirin [ASA -] 81 mg PO DAILY 09/11/17 Melatonin 3 mg PO PRN PRN 09/11/17 Albuterol Sulfate Inhaler - [Ventolin Hfa Inhaler -] 1 inh PO Q4H PRN 11/27/17 Anemia: (HYPOKALEMIA) Asthma: Yes Cardiac Disorders: Yes (SVT) COPD: No DVT: No GI Disorders: Yes (ulcer) Disorders: Yes (right ovarian cyst status post surgery, status post hysterectomy, still has) HTN: Yes (?) Kidney Stones: (Kidney problems.) Psychiatric Problems: Yes (anxiety, depression) - Surgical History Abdominal Surgery: Yes (hysterectomy and right oophorectomy) - Family Disease History Family Disease History: Diabetes: Mother - Immunization History Td Vaccination: No TDAP Vaccination: No Immunization Up to Date: Yes - Suicide/Smoking/Psychosocial Hx Smoking Status: No Smoking History: Never smoked Years of Tobacco Use: 0 Have you smoked in the past 12 months: No Number of Cigarettes Smoked Daily: 0 Cigars Per Day: 0 Hx Alcohol Use: No Drug/Substance Use Hx: No Substance Use Type: None Review of Systems - Review of Systems Able to Perform ROS?: Yes Comments:: 02/21/18 03:03 CONSTITUTIONAL: Absent: fever, chills, diaphoresis, generalized weakness, malaise, loss of appetite HEENT: Absent: rhinorrhea, nasal congestion, throat pain, throat swelling, difficulty swallowing, mouth swelling, ear pain, eye pain, visual Changes CARDIOVASCULAR: Absent: chest pain, loss of consciousness, palpitations, irregular heart rate, peripheral edema RESPIRATORY: Absent: cough, shortness of breath, dyspnea with exertion, orthopnea, wheezing, stridor, hemoptysis GASTROINTESTINAL: Absent: abdominal pain, abdominal distension, nausea, vomiting, diarrhea, constipation, melena, hematochezia GENITOURINARY: Absent: dysuria, frequency, urgency, hesitancy, hematuria, flank pain, genital pain MUSCULOSKELETAL: Absent: myalgia, arthralgia, joint swelling SKIN: Absent: rash, itching, pallor HEMATOLOGIC/IMMUNOLOGIC: Absent: easy bleeding, easy bruising, lymphadenopathy, frequent infections ENDOCRINE: Absent: unexplained weight gain, unexplained weight loss, heat intolerance, cold intolerance NEUROLOGIC: Absent: headache, focal weakness or paresthesias, dizziness, unsteady gait, seizure, mental status changes, bladder or bowel incontinence PSYCHIATRIC: Absent: anxiety, depression, suicidal or homicidal ideation, hallucinations. Is the patient limited Italian proficient: No *Physical Exam - Vital Signs Last Vital Signs Temp Pulse Resp BP Pulse Ox 98.5 F 103 H 18 156/98 100 02/20/18 23:27 02/20/18 23:27 02/20/18 23:27 02/20/18 23:27 02/20/18 23:27 - Physical Exam Comments: 02/21/18 03:03 GENERAL: Well developed, well nourished. Awake and alert. No acute distress. HEENT: Normocephalic, atraumatic. PERRLA, EOMI. No conjunctival pallor. Sclera are non- icteric. Moist mucous membranes. Oropharynx is clear. NECK: Supple. Full ROM. No JVD. Carotid pulses 2+ and symmetric, without bruits. No thyromegaly. No lymphadenopathy. CARDIOVASCULAR: Regular rate and rhythm. No murmurs, rubs, or gallops. Distal pulses are 2+ and symmetric. PULMONARY: No evidence of respiratory distress. Lungs clear to auscultation bilaterally. No wheezing, rales or rhonchi. ABDOMINAL: Soft. Non-tender. Non-distended. No rebound or guarding. No organomegaly. Normoactive bowel sounds. MUSCULOSKELETAL Normal range of motion at all joints. No bony deformities or tenderness. No CVA tenderness. EXTREMITIES: No cyanosis. No clubbing. No edema. No calf tenderness. SKIN: Warm and dry. Normal capillary refill. No rashes. No jaundice. NEUROLOGICAL: Alert, awake, appropriate. Cranial nerves 2-12 intact. No deficits to light touch and temperature in face, upper extremities and lower extremities. No motor deficits in the in face, upper extremities and lower extremities. Normoreflexic in the upper and lower extremities. Normal speech. Toes are down- going bilaterally. Gait is normal without ataxia. PSYCHIATRIC: Cooperative. Good eye contact. Appropriate mood and affect. Heart Score/ECG Review - History History: Slightly suspicious - Electrocardiogram EKG: Normal - Age Age: >/= 65 - Risk Factors Based on the list above the patient has:: 1-2 risk factors - Troponin Troponin: </= normal limit - Score Heart Score - Total: 3 ED Treatment Course - LABORATORY CBC & Chemistry Diagram: 02/20/18 23:25 02/20/18 23:43 - Medications Given in the ED: ED Medications Discontinued Medications Generic Name Dose Route Start Last Admin Trade Name Alexi PRN Reason Stop Dose Admin Sodium Chloride 1,000 mls @ 1,000 mls/hr 02/20/18 23:18 02/21/18 00:29 Normal Saline - IV 02/21/18 00:17 1,000 mls/hr ASDIR STA Administration *DC/Admit/Observation/Transfer Diagnosis at time of Disposition: Jittery feeling, Anxiety, Atypical chest pain Adverse effect of prednisone Qualifiers: Encounter type: initial encounter Qualified Code(s): T38.0X5A - Adverse effect of glucocorticoids and synthetic analogues, initial encounter - Discharge Dispostion Condition at time of disposition: Stable Decision to Admit order: No - Referrals - Patient Instructions Printed Discharge Instructions: DI for Atypical Chest Pain Additional Instructions: Rest Follow up with your physician on Friday As per our discussion, you should stop trying to self treat with your benadryl and Prednisone Return to the ER for any concerns, chest pain, shortness of breath - Post Discharge Activity Progress Note - Progress Note Progress Note: 0252hrs: Pt feels fine and wishes to be d/c
[2018-02-21 00:32] LABS: ALK PHOS 90 U/L (45-117)
[2018-02-21 00:35] LABS: BASO % 0.7 % (0-2.0); EOS % 0.9 % (0-4.5); LYMPH % 27.2 % (8-40); MONO % 6.5 % (3.8-10.2); NEUT % 64.7 % (42.8-82.8)
[2018-02-21 00:37] LABS: MAGNESIUM 2.3 mg/dL (1.8-2.4); POTASSIUM 3.8 mmol/L (3.5-5.1); SGOT/AST 24 U/L (15-37)
[2018-02-21] MEDS ORDERED: LORazepam 2 MG/ML SDV VIAL ONE (02:07)
--- NOTE | 2018-02-21 09:03 | EKG ---
Test Reason : Blood Pressure : / mmHG Vent. Rate : 110 BPM Atrial Rate : 110 BPM P-R Int : 146 ms QRS Dur : 092 ms QT Int : 332 ms P-R-T Axes : 063 053 030 degrees QTc Int : 449 ms SINUS TACHYCARDIA POSSIBLE LEFT ATRIAL ENLARGEMENT NONSPECIFIC ST ABNORMALITY ABNORMAL ECG WHEN COMPARED WITH ECG OF 25-JAN-2018 22:38, NONSPECIFIC T WAVE ABNORMALITY, WORSE IN INFERIOR LEADS Confirmed by KIZZY PEREZ, SAGAR ([id number]) on 02/21/2018 9:03:19 AM Referred By: Confirmed By:SAGAR DURAND MD
== END 2018-02-21 04:50 | disposition home or self-care (01) ==
LOC: JER 22:48
PROC: 3E0337Z Introduction of Electrolytic and Water Balance Substance into Peripheral Vein, Percutaneous Approach (ICD-10-PCS; principal; 2018-02-20)
DX: F41.9 Anxiety disorder, unspecified (principal); T38.0X5A Adverse effect of glucocorticoids and synthetic analogues, initial encounter; R07.89 Other chest pain; I47.1 Supraventricular tachycardia
CPT/HCPCS: 36415; 80053; 83735; 84100; 84484; 85025; 93005; 93010; 99284-25; J7030

== ENCOUNTER 2018-05-08 16:40 | Emergency (ER) | payer OTHER ==
--- NOTE | 2018-05-08 16:52 | PDOC ---
History of Present Illness - General History Source: Patient Exam Limitations: No Limitations - History of Present Illness Initial Comments: 05/08/18 17:18 The patient is a 52 year old female, with a significant PMH of diabetes, chronic hypokalemia, chronic knee pain, SVT, asthma, and GERD who presents to the emergency department with urgency for the past 4 days and worsening abdominal pain. Patient went to her PCP today for these urinary symptoms and gave a urine sample. The PCP told her the results would not come back until next week and patient could not wait any longer. Denies chest pain or shortness of breath. Denies nausea, vomiting. Denies contact with sick individuals, out of state travelling. Denies dysuria, hematuria. Denies constipation, diarrhea. Denies any other symptoms. Allergies: Lidocaine, Latex, Procaine HCl. Social history: No smoking. No alcohol. No illicit drugs. Surgical history: Hysterectomy. Right oophorectomy PMD: Dr. Dianne Martin <Cherelle Marley - Last Filed: 05/08/18 17:18> <Carey James - Last Filed: 05/08/18 17:33> - General Chief Complaint: Urinary Problem Stated Complaint: POSSIBLE UTI Time Seen by Provider: 05/08/18 16:51 Past History <Cherelle Marley - Last Filed: 05/08/18 17:18> - Past Medical History Anemia: (HYPOKALEMIA) Asthma: Yes Cardiac Disorders: Yes (SVT) COPD: No DVT: No GI Disorders: Yes (ulcer) Disorders: Yes (right ovarian cyst status post surgery, status post hysterectomy, still has) HTN: Yes (?) Kidney Stones: (Kidney problems.) Psychiatric Problems: Yes (anxiety, depression) - Surgical History Abdominal Surgery: Yes (hysterectomy and right oophorectomy) - Family Disease History Family Disease History: Diabetes: Mother - Immunization History Td Vaccination: No TDAP Vaccination: No Immunization Up to Date: Yes - Suicide/Smoking/Psychosocial Hx Smoking Status: No Smoking History: Never smoked Years of Tobacco Use: 0 Have you smoked in the past 12 months: No Number of Cigarettes Smoked Daily: 0 Cigars Per Day: 0 Hx Alcohol Use: No Drug/Substance Use Hx: No Substance Use Type: None <Carey James - Last Filed: 05/08/18 17:33> - Past Medical History Allergies/Adverse Reactions: Allergies Allergy/AdvReac Type Severity Reaction Status Date / Time latex Allergy Mild Verified 05/08/18 16:43 lidocaine Allergy Verified 05/08/18 16:43 paprika Allergy Verified 05/08/18 16:43 peanut Allergy Difficulty Verified 05/08/18 16:43 Breathing procaine HCl [From Novocain] Allergy Verified 05/08/18 16:42 POLYURETHANE Allergy Intermediate Swelling Uncoded 05/08/18 16:44 shrimp Allergy Intermediate Hives Uncoded 05/08/18 16:43 Home Medications: Ambulatory Orders Potassium Chloride [K-Tab ER] 20 meq PO DAILY 02/05/16 Ranitidine HCl [Zantac] 300 mg PO BID 04/03/17 Diphenhydramine HCl [Benadryl -] 25 mg PO Q6H 06/06/17 Melatonin 6 mg PO PRN PRN 09/11/17 Albuterol Sulfate Inhaler - [Ventolin Hfa Inhaler -] 1 inh PO Q4H PRN 11/27/17 Review of Systems - Review of Systems Able to Perform ROS?: Yes Comments:: 05/08/18 17:20 ADULT ROS GENERAL/CONSTITUTIONAL: No fever or chills. No weakness. HEAD, EYES, EARS, NOSE AND THROAT: No change in vision. No ear pain or discharge. No sore throat. CARDIOVASCULAR: No chest pain or shortness of breath. RESPIRATORY: No cough, wheezing, or hemoptysis. GASTROINTESTINAL: No nausea, vomiting, diarrhea or constipation. GENITOURINARY: No dysuria, hematuria. (+) Urgency. MUSCULOSKELETAL: No joint or muscle swelling or pain. No neck or back pain. SKIN: No rash NEUROLOGIC: No headache, vertigo, loss of consciousness, or change in strength/ sensation. ENDOCRINE: No increased thirst. No abnormal weight change. HEMATOLOGIC/LYMPHATIC: No anemia, easy bleeding, or history of blood clots. ALLERGIC/IMMUNOLOGIC: No hives or skin allergy. <Cherelle Marley - Last Filed: 05/08/18 17:18> *Physical Exam - Vital Signs Last Vital Signs Temp Pulse Resp BP Pulse Ox 98.6 F 92 H 18 124/85 98 05/08/18 16:41 05/08/18 16:41 05/08/18 16:41 05/08/18 16:41 05/08/18 16:41 - Physical Exam Comments: 05/08/18 17:21 ADULT EXAM GENERAL: Awake, alert, and fully oriented, in no acute distress HEAD: No signs of trauma EYES: PERRLA, EOMI, sclera anicteric, conjunctiva clear ENT: Auricles normal inspection, hearing grossly normal, nares patent, oropharynx clear without exudates. Moist mucosa NECK: Normal ROM, supple, no lymphadenopathy, JVD, or masses LUNGS: Breath sounds equal, clear to auscultation bilaterally. No wheezes, and no crackles HEART: Regular rate and rhythm, normal S1 and S2, no murmurs, rubs or gallops ABDOMEN: Soft, nontender, normoactive bowel sounds. No guarding, no rebound. No masses EXTREMITIES: Normal range of motion, no edema. No clubbing or cyanosis. No cords, erythema, or tenderness NEUROLOGICAL: Cranial nerves II through XII grossly intact. Normal speech, normal gait SKIN: Warm, Dry, normal turgor, no rashes or lesions noted. <Cherelle Marley - Last Filed: 05/08/18 17:18> Medical Decision Making - Medical Decision Making 05/08/18 17:27 Pt presents to the ED complaining of a several week history of suprapubic discomfort, urgency and frequency. Denies fevers, although does report transient "flu like feeling" two days ago. Abdomen is non tender to deep palpation on my exam. UA shows no evidence of UTI. Given the persistence of her symptoms, she may have another condition such as interstial cystitis. Patient will call her PMD for follow up on Friday. <Carey James - Last Filed: 05/08/18 17:33> *DC/Admit/Observation/Transfer <Cherelle Marley - Last Filed: 05/08/18 17:18> - Discharge Dispostion Decision to Admit order: No <Carey James - Last Filed: 05/08/18 17:33> Diagnosis at time of Disposition: Suprapubic pain - Discharge Dispostion Disposition: HOME Condition at time of disposition: Good - Patient Instructions Printed Discharge Instructions: DI for Pelvic Pain Additional Instructions: return to the ED for fever, nausea and vomiting, severe pain, bloody urine, other new or worsening symptoms. Your urine did not show evidence of infection. You should call your primary care doctor on Friday for follow up.
[2018-05-08 17:04] VITALS: BP 124/85; PULSE 92; TEMP 98.6; BMI 33.7
[2018-05-08 17:19] LABS: URINE APPEARANCE Clear; URINE BILIRUBIN Negative (NEGATIVE); URINE COLOR Yellow; URINE GLUCOSE (UA) Negative (NEGATIVE); URINE KETONE Negative (NEGATIVE); URINE LEUK ESTERASE Negative (NEGATIVE); URINE NITRITE Negative (NEGATIVE); URINE PROTEIN Negative (NEGATIVE); URINE UROBILINOGEN 0.2 (0.2-1.0)
== END 2018-05-08 17:31 | disposition home or self-care (01) ==
LOC: FER 16:40
DX: R10.30 Lower abdominal pain, unspecified (principal); E11.9 Type 2 diabetes mellitus without complications; I10 Essential (primary) hypertension; J45.909 Unspecified asthma, uncomplicated; I47.1 Supraventricular tachycardia
CPT/HCPCS: 81003; 99282-25

== ENCOUNTER 2019-01-18 17:27 | Emergency (ER) | payer OTHER ==
[2019-01-18 17:38] VITALS: BP 147/89; PULSE 82; TEMP 98.2; BMI 33.6
--- NOTE | 2019-01-18 17:49 | PDOC ---
History of Present Illness - General Chief Complaint: Bite Stated Complaint: BITE Time Seen by Provider: 01/18/19 17:30 - History of Present Illness Initial Comments: 01/18/19 17:45 53 years old with no significant past medical history presents to the emergency department status post bug bites 10 days ago. Patient was staying at a hotel in [place] and sustained bug bites to her right forearm and left thigh. They' re slowly healing ones on her thigh having completely healed. Patient was concerned because of the duration and was taking to heal and wanted to make sure that no other intervention was needed No fever no chills no systemic symptoms mild itchy sensation which is persistent constant. Past History - Past Medical History Allergies/Adverse Reactions: Allergies Allergy/AdvReac Type Severity Reaction Status Date / Time latex Allergy Mild Verified 01/18/19 17:28 lidocaine Allergy Verified 01/18/19 17:28 paprika Allergy Verified 01/18/19 17:28 peanut Allergy Difficulty Verified 01/18/19 17:28 Breathing procaine HCl [From Novocain] Allergy Verified 01/18/19 17:28 POLYURETHANE Allergy Intermediate Swelling Uncoded 01/18/19 17:28 shrimp Allergy Intermediate Hives Uncoded 01/18/19 17:28 Home Medications: Ambulatory Orders Potassium Chloride [K-Tab ER] 20 meq PO DAILY 02/05/16 Diphenhydramine HCl [Benadryl -] 25 mg PO Q6H 06/06/17 Melatonin 6 mg PO PRN PRN 09/11/17 Anemia: (HYPOKALEMIA) Asthma: Yes Cardiac Disorders: Yes (SVT) COPD: No DVT: No GI Disorders: Yes (ulcer) Disorders: Yes (right ovarian cyst status post surgery, status post hysterectomy, still has) HTN: Yes (?) Kidney Stones: (Kidney problems.) Psychiatric Problems: Yes (anxiety, depression) - Surgical History Abdominal Surgery: Yes (hysterectomy and right oophorectomy) - Family Disease History Family Disease History: Diabetes: Mother - Immunization History Td Vaccination: No TDAP Vaccination: No Immunization Up to Date: Yes - Suicide/Smoking/Psychosocial Hx Smoking Status: No Smoking History: Never smoked Years of Tobacco Use: 0 Have you smoked in the past 12 months: No Number of Cigarettes Smoked Daily: 0 Cigars Per Day: 0 Hx Alcohol Use: No Drug/Substance Use Hx: No Substance Use Type: None Review of Systems - Review of Systems Comments:: 01/18/19 17:46 ROS: A complete review of 10 out of 10 review of systems is taken and is negative apart from what is previously mentioned below and in the HPI. *Physical Exam - Vital Signs Last Vital Signs Temp Pulse Resp BP Pulse Ox 98.2 F 82 17 147/89 100 01/18/19 17:28 01/18/19 17:28 01/18/19 17:28 01/18/19 17:28 01/18/19 17:28 - Physical Exam Comments: 01/18/19 17:46 Vitals: Triage Vital signs reviewed General Appearance: no acute distress, well nourished well developed, Head: Atraumatic, Extremities: Full range of motion to all extremities, no cyanosis, clubbing, or edema Skin: Warm and dry, 3 bug bites to right forearm 3 bug bites to left hip Psych : normal mood, normal affect Medical Decision Making - Medical Decision Making 01/18/19 17:47 Bug bites to left forearm 3 bites to left hip from 10 days ago patient has a ready wash all sheets and clothing at home Recommend bacitracin Band-Aid and follow up with PCP Find his, need for follow-up and strict return instructions discussed with patient. *DC/Admit/Observation/Transfer Diagnosis at time of Disposition: Bed bug bite Qualifiers: Encounter type: initial encounter Qualified Code(s): W57.XXXA - Bitten or stung by nonvenomous insect and other nonvenomous arthropods, initial encounter - Discharge Dispostion Disposition: HOME Condition at time of disposition: Stable Decision to Admit order: No - Referrals - Patient Instructions Printed Discharge Instructions: How to Get Rid of Bed Bugs Additional Instructions: Apply bacitracin and keep covered with a Band-Aid twice a day. Follow-up with your primary care provider this week. - Post Discharge Activity
== END 2019-01-18 17:55 | disposition home or self-care (01) ==
LOC: FER 17:27
DX: W57.XXXA Bitten or stung by nonvenomous insect and other nonvenomous arthropods, initial encounter (principal); Y93.89 Activity, other specified; Y92.89 Other specified places as the place of occurrence of the external cause; F41.8 Other specified anxiety disorders; N20.0 Calculus of kidney; I47.1 Supraventricular tachycardia
CPT/HCPCS: 99281-25

== ENCOUNTER 2019-02-28 00:34 | Inpatient (IN) | payer OTHER ==
--- NOTE | 2019-02-28 01:03 | PDOC ---
History of Present Illness <Kathy Navarro - Last Filed: 02/28/19 05:11> - General History Source: Patient, Family (son) Exam Limitations: No Limitations - History of Present Illness Initial Comments: 02/28/19 01:23 Juju Rubio is a 53yF w PMHx asthma, SVT, chronic hypokalemia presenting with abdominal pain. Sudden onset pain 4hrs ago while relaxing in LUQ/LLQ/ L flank region. Associated subjective fevers/chills, generalized aches, nausea, yellow non-bloody vomiting several times. No chest pain, SOB, urinary or bowel movement changes. <Ignacio Lugo - Last Filed: 02/28/19 05:35> - General Chief Complaint: Nausea/Vomiting Stated Complaint: VOMITING/NAUSEA Time Seen by Provider: 02/28/19 00:57 Past History <Kathy Navarro - Last Filed: 02/28/19 05:11> - Past Medical History Anemia: (HYPOKALEMIA) Asthma: Yes Cardiac Disorders: Yes (SVT) COPD: No DVT: No GI Disorders: Yes (ulcer) Disorders: Yes (right ovarian cyst status post surgery, status post hysterectomy, still has) HTN: Yes (?) Kidney Stones: (Kidney problems.) Psychiatric Problems: Yes (anxiety, depression) - Surgical History Abdominal Surgery: Yes (hysterectomy and right oophorectomy) - Family Disease History Family Disease History: Diabetes: Mother - Immunization History Td Vaccination: No TDAP Vaccination: No Immunization Up to Date: Yes - Suicide/Smoking/Psychosocial Hx Smoking Status: No Smoking History: Never smoked Years of Tobacco Use: 0 Have you smoked in the past 12 months: No Number of Cigarettes Smoked Daily: 0 Cigars Per Day: 0 Information on smoking cessation initiated: No Hx Alcohol Use: No Drug/Substance Use Hx: No Substance Use Type: None <Ignacio Lugo - Last Filed: 02/28/19 05:35> - Past Medical History Allergies/Adverse Reactions: Allergies Allergy/AdvReac Type Severity Reaction Status Date / Time latex Allergy Mild Verified 02/28/19 00:52 lidocaine Allergy Verified 02/28/19 00:52 paprika Allergy Verified 02/28/19 00:52 peanut Allergy Difficulty Verified 02/28/19 00:52 Breathing procaine HCl [From Novocain] Allergy Verified 02/28/19 00:52 POLYURETHANE Allergy Intermediate Swelling Uncoded 02/28/19 00:52 shrimp Allergy Intermediate Hives Uncoded 02/28/19 00:52 Home Medications: Ambulatory Orders Potassium Chloride [K-Tab ER] 20 meq PO DAILY 02/05/16 Diphenhydramine HCl [Benadryl -] 25 mg PO Q6H 06/06/17 Albuterol 0.083% Nebulizer Maddie [Ventolin 0.083%] 1 neb NEB QID PRN 02/28/19 Albuterol Sulfate Inhaler - [Ventolin Hfa Inhaler -] 1 - 2 inh PO QID PRN Ranitidine HCl [Zantac] 300 mg PO BID 02/28/19 Review of Systems - Review of Systems Constitutional: Yes: Chills, Fever HEENTM: No: Eye Pain, Nose Pain, Throat Pain, Mouth Pain Respiratory: No: Cough, Shortness of Breath Cardiac (ROS): No: Chest Pain, Palpitations, Syncope, Chest Tightness ABD/GI: Yes: Nausea, Vomiting. No: Abdominal Distended, Constipated, Diarrhea : No: Burning, Dysuria, Discharge, Flank Pain, Hematuria, Incontinence Musculoskeletal: No: Back Pain, Joint Pain, Muscle Pain, Neck Pain Integumentary: No: Bruising, Change in Color, Change in Hair/Nails, Erythema, Flushing, Lesions Neurological: No: Headache, Paresthesia, Seizure, Tingling, Tremors Psychiatric: No: Anxiety, Depression Endocrine: No: Excessive Sweating, Flushing, Intolerance to Cold, Intolerance to Heat Hematologic/Lymphatic: No: Anemia, Blood Clots, Easy Bleeding <Ignacio Lugo - Last Filed: 02/28/19 05:35> *Physical Exam - Vital Signs Last Vital Signs Temp Pulse Resp BP Pulse Ox 102.9 F H 124 H 20 143/90 98 02/28/19 00:52 02/28/19 00:52 02/28/19 00:52 02/28/19 00:52 02/28/19 02:00 <Kathy Navarro - Last Filed: 02/28/19 05:11> - Vital Signs Last Vital Signs Temp Pulse Resp BP Pulse Ox 102.9 F H 124 H 20 143/90 98 02/28/19 00:52 02/28/19 00:52 02/28/19 00:52 02/28/19 00:52 02/28/19 00:52 - Physical Exam General Appearance: Yes: Nourished, Appropriately Dressed, Moderate Distress ( shaking in bed, anxious, fast talking) HEENT: positive: EOMI, [place], Normal Voice, Hearing Grossly Normal. negative: Scleral Icterus (R), Scleral Icterus (L), Nasal Congestion, Rhinorrhea Respiratory/Chest: positive: Lungs Clear, Normal Breath Sounds. negative: Chest Tender, Respiratory Distress, Crackles, Rales, Rhonchi, Stridor, Wheezing Cardiovascular: positive: Regular Rhythm, S1, S2, Tachycardia. negative: Edema , Murmur Gastrointestinal/Abdominal: positive: Normal Bowel Sounds, Flat, Soft. negative : Tender, Organomegaly, Distended, Guarding, Mass Integumentary: positive: Normal Color Neurologic: positive: acid conditioner II-XII NML intact, Fully Oriented, Alert, Normal Mood/ Affect, Normal Response, Responsive. negative: Confused, Disoriented <Ignacio Lugo - Last Filed: 02/28/19 05:35> ED Treatment Course - LABORATORY CBC & Chemistry Diagram: 02/28/19 02:08 02/28/19 03:50 - ADDITIONAL ORDERS Additional order review: Laboratory Results 02/28/19 02/28/19 02/28/19 03:50 03:50 02:08 Sodium 143 Potassium 3.2 L Chloride 109 H Carbon Dioxide 21 Anion Gap 13 BUN 21.7 H Creatinine 1.4 H Est GFR (CKD-EPI)AfAm 48.90 Est GFR (CKD-EPI)NonAf 42.19 Random Glucose 133 H Lactic Acid Calcium 8.1 L Total Bilirubin 0.3 AST 24 ALT 18 Alkaline Phosphatase 78 Creatine Kinase 136 Troponin I < 0.02 Total Protein 5.8 L Albumin 3.4 Lipase Cancelled 282 TSH Urine Color Urine Appearance Urine pH Ur Specific [place] Urine Protein Urine Glucose (UA) Urine Ketones Urine Blood Urine Nitrite Urine Bilirubin Urine Urobilinogen Ur Leukocyte Esterase Urine WBC (Auto) Urine RBC (Auto) Urine Casts (Auto) U Epithel Cells (Auto) Urine Bacteria (Auto) 02/28/19 02/28/19 02/28/19 02:08 02:08 02:08 Sodium 141 Potassium 3.4 L Chloride 108 H Carbon Dioxide 20 L Anion Gap 13 BUN 23.0 H Creatinine 1.3 Est GFR (CKD-EPI)AfAm 53.48 Est GFR (CKD-EPI)NonAf 46.15 Random Glucose 112 H Lactic Acid 4.8 H* Calcium 8.4 L Total Bilirubin 0.3 AST 27 ALT 20 Alkaline Phosphatase 95 Creatine Kinase Troponin I Total Protein 6.6 Albumin 3.8 Lipase TSH 1.14 Urine Color Yellow Urine Appearance Clear Urine pH 5.0 D Ur Specific [place] 1.008 L Urine Protein Negative Urine Glucose (UA) Negative Urine Ketones Negative Urine Blood Trace Urine Nitrite Negative Urine Bilirubin Negative Urine Urobilinogen 0.2 Ur Leukocyte Esterase Negative Urine WBC (Auto) 1 Urine RBC (Auto) 1 Urine Casts (Auto) 0 U Epithel Cells (Auto) 1.5 Urine Bacteria (Auto) 54.1 02/28/19 02:08 RBC 4.44 MCV 85.2 MCHC 33.5 RDW 14.3 MPV 7.7 Neutrophils % 91.5 H D Lymphocytes % 7.4 L D Monocytes % 0.6 L D Eosinophils % 0.3 Basophils % 0.2 - Medications Given in the ED: ED Medications Discontinued Medications Generic Name Dose Route Start Last Admin Trade Name Freq PRN Reason Stop Dose Admin Acetaminophen 1,000 mg 02/28/19 01:49 02/28/19 02:02 Ofirmev Injection - IVPB 02/28/19 01:50 1,000 mg ONCE ONE Administration Piperacillin Sod/Tazobactam 50 mls @ 100 mls/hr 02/28/19 03:43 02/28/19 04:03 Sod 3.375 gm/ Dextrose IVPB 02/28/19 04:12 100 mls/hr ONCE ONE Administration Protocol Famotidine/Sodium Chloride 20 mg in 50 mls @ 100 mls/hr 02/28/19 03:49 04:33 Pepcid 20 Mg Premixed Ivpb - IVPB 02/28/19 04:18 100 mls/hr ONCE ONE Administration Vancomycin HCl 1,000 mg/ 250 mls @ 250 mls/hr 02/28/19 03:55 02/28/19 04:33 Dextrose IVPB 02/28/19 04:54 250 mls/hr ONCE ONE Administration Protocol Magnesium Sulfate 2 gm 02/28/19 03:46 02/28/19 04:33 Magnesium Sulfate IVPB 02/28/19 03:47 2 gm ONCE ONE Administration Metoclopramide HCl 10 mg 02/28/19 04:04 02/28/19 04:33 Reglan Injection - IVPB 02/28/19 04:05 10 mg ONCE ONE Administration Morphine Sulfate 2 mg 02/28/19 03:50 02/28/19 04:10 Morphine Injection - IVPUSH 02/28/19 03:51 2 mg ONCE ONE Administration Ondansetron HCl 4 mg 02/28/19 01:51 02/28/19 02:00 Zofran Injection IVPUSH 02/28/19 01:52 4 mg NOW ONE Administration Sodium Chloride 1,000 ml 02/28/19 01:48 02/28/19 02:02 Normal Saline - IV 02/28/19 01:49 1,000 ml ONCE ONE Administration Sodium Chloride 1,000 ml 02/28/19 03:32 02/28/19 04:03 Normal Saline - IV 02/28/19 03:33 1,000 ml ONCE ONE Administration <Kathy Navarro - Last Filed: 02/28/19 05:11> - LABORATORY CBC & Chemistry Diagram: 02/28/19 02:08 02/28/19 03:50 <Ignacio Lugo - Last Filed: 02/28/19 05:35> Medical Decision Making - Medical Decision Making 02/28/19 01:49 Sepsis workup CBC CMP trop UA cultures EKG CXR glucose tylenol and morphine for pain, zofran for nausea, Mg, reglan, pepcid Given 2L NS Started vanc, zosyn UA, CBC, CMP normal lactate 4.8 CXR jose basilar infiltrates, cardiomegaly EKG showed normal sinus rhythm, flipped T waves inferior, lateral CT AB (non contrast bc pt endorses contrast allergy) showed stranding around kidney suggesting pyelo and obstructing stone at L renal pelvis. Juju Rubio is a 53yF w PMHx asthma, SVT, chronic hypokalemia presenting with abdominal pain. She has sepsis 2/2 obstructive nephrolithiasis at L renal pelvis. Lactate 4.8. SBP varied between 84-125. given 2L NS, vanc, zosyn, 2 morphine, 10 reglan, 2 Mag, 20 pepcid. At 04:00, had 1 episode bilious vomiting , diffuse abdominal discomfort. Repeat CMP showed K down 3.2, given 10mEq runs of K+ x3. CT AB showed obstructing stone at L renal pelvis. Admitted med/surg inpatient Dr. Aranda for sepsis 2/2 obstructive nephrolithiasis , hypokalemia <Ignacio Lugo - Last Filed: 02/28/19 05:35> *DC/Admit/Observation/Transfer - Discharge Dispostion Decision to Admit order: Yes <Kathy Navarro - Last Filed: 02/28/19 05:11> <Ignacio Lugo - Last Filed: 02/28/19 05:35> Diagnosis at time of Disposition: Pyelonephritis, Nephrolithiasis, Sepsis, Hypokalemia, Dizziness - Discharge Dispostion Condition at time of disposition: Guarded
[2019-02-28] MEDS ORDERED: SODIUM CHLORIDE 0.9% 500 ML INFUS.BAG IV ONE ×3 (01:48→03:55)
[2019-02-28] MEDS ORDERED: ACETAMINOPHEN 1000 MG/100 ML VIAL (NON FORMULARY) IVPB ONE ×2 (01:49→04:38)
[2019-02-28] MEDS ORDERED: ONDANSETRON 4 MG/2 ML VIAL IVPUSH ONE (01:51)
[2019-02-28] MEDS ORDERED: ONDANSETRON 4 MG/2 ML VIAL ONE (01:54)
[2019-02-28] MEDS ORDERED: ACETAMINOPHEN INJECTION 100 ML IVPB ONE ×3 (01:54→10:49)
[2019-02-28 02:30] LABS: BASO % 0.2 % (0-2.0); EOS % 0.3 % (0-4.5); HEMATOCRIT 37.8 % (32.4-45.2); HEMOGLOBIN 12.7 GM/dL (10.7-15.3); LYMPH % 7.4 % (8-40); MCH 28.6 pg (25.7-33.7); MCHC 33.5 g/dl (32.0-36.0); MEAN CELL VOLUME 85.2 fl (80-96); MEAN PLT VOLUME 7.7 fl (7.5-11.1); MONO % 0.6 % (3.8-10.2); NEUT % 91.5 % (42.8-82.8); PLATELET COUNT 146 K/MM3 (134-434); RBC 4.44 M/mm3 (3.60-5.2); RDW 14.3 % (11.6-15.6); WHITE BLOOD COUNT 4.2 K/mm3 (4.0-10.0)
[2019-02-28 02:34] LABS: EPI CELLS 1.5 /HPF (0-5/HPF); HYALINE CASTS 0 /lpf (0-8); URINE APPEARANCE CLEAR; URINE BACTERIA 54.1 /hpf (NEGATIVE); URINE BILIRUBIN NEGATIVE (NEGATIVE); URINE COLOR YELLOW; URINE GLUCOSE (UA) NEGATIVE (NEGATIVE); URINE KETONE NEGATIVE (NEGATIVE); URINE LEUK ESTERASE NEGATIVE (NEGATIVE); URINE NITRITE NEGATIVE (NEGATIVE); URINE PROTEIN NEGATIVE (NEGATIVE); URINE RBC 1 /hpf (0-4); URINE UROBILINOGEN 0.2 mg/dL (0.2-1.0); URINE WBC 1 /hpf (0-5)
--- NOTE | 2019-02-28 02:51 | PDOC ---
Documentation entered by Fauzia Alicea SCRIBE, acting as scribe for Kathy Navarro MD. Kathy Navarro MD: This documentation has been prepared by the Nixon kim Xhesika, SCRIBE, under my direction and personally reviewed by me in its entirety. I confirm that the documentation accurately reflects all work, treatment, procedures, and medical decision making performed by me. Attending Attestation - Resident Resident Name: Ignacio Lugo - ED Attending Attestation I have performed the following: I have examined & evaluated the patient, The case was reviewed & discussed with the resident, I agree w/resident's findings & plan - HPI HPI: 02/28/19 01:58 Patient is a 52 year old female with a significant past medical history of chronic hypokalemia, chronic knee pain, SVT, asthma, and GERD , who presents to the ED with 4hrs of L flank pain. Patient states she was laying down at the sudden onset of her symptoms. Patient states her symptoms are associated with fever, chills, nausea and bilious vomiting. The patient denies chest pain, shortness of breath, headache and dizziness. Denies cough, diarrhea and constipation. Denies dysuria, frequency, urgency and hematuria. Allergies: Lidocaine, Latex, Procaine HCl. Social history: No smoking. No alcohol. No illicit drugs. Surgical history: Hysterectomy. Right oophorectomy PMD: Dr. Dianne Martin - Physicial Exam PE: 02/28/19 01:59 GENERAL: Awake, alert, and fully oriented, in no acute distress HEAD: No signs of trauma EYES: PERRLA, EOMI, sclera anicteric, conjunctiva clear ENT: Auricles normal inspection, hearing grossly normal, nares patent, oropharynx clear without exudates. Moist mucosa NECK: Normal ROM, supple, no lymphadenopathy, JVD, or masses LUNGS: Breath sounds equal, clear to auscultation bilaterally. No wheezes, and no crackles HEART: Regular rate and rhythm, normal S1 and S2, no murmurs, rubs or gallops ABDOMEN: Soft, nontender, normoactive bowel sounds. No guarding, no rebound. No masses EXTREMITIES: Normal range of motion, no edema. No clubbing or cyanosis. No cords, erythema, or tenderness NEUROLOGICAL: Cranial nerves II through XII grossly intact. Normal speech, normal gait SKIN: Warm, Dry, normal turgor, no rashes or lesions noted. - Medical Decision Making 02/28/19 02:49 Pt states that she has nausea and vomiting. SHe has no UTI. Pt has abdominal pain that is left sided. She has no cough and no headache or ear pain or throat pain. She has total body aches. 02/28/19 02:50 Once her chem comes back we can order a CT with IV contrast of her abdomen and pelvis. 02/28/19 03:01 lactic acid is 4.8 02/28/19 04:34 Pt is febrile and appears unwell. BP 84 systolic. 1L NSS. 20mg pepcid; 2g mag; reglan 10mg; morpine 2mg; zosyn3.375g, vanco going in. BP went to 125 systolic; then 105 systolic; 110 systolic. We will give more ofirmev at 4 hr point. Lactic acid repeated. Lipase and comp repeat sent also. 02/28/19 04:51 Pt has pyelonephtitis and stone at the left renal pelvis. She will be admitted. ICU eval will be called. 02/28/19 04:53 repeat Chemistry shows K+ went down. We will give 10mEq runs of K+ x 3 runs. ICU called to eval patient. Hospitalist will be called to see the pateint. 02/28/19 05:10 Pt feels slightly improved. 02/28/19 05:28 Patient Name: DENVER LIRA THIS IS A PRELIMINARY REPORT FROM [facility] DATE OF SERVICE: 2019-02-28 04:23:32 IMAGES: [id number] EXAM: ABDOMEN \T\ PELVIS CT W/O CONTR HISTORY: Sepsis COMPARISON: None. FINDINGS: Lung bases are clear. The visualized cardiac chambers are normal size and configuration. There is a moderate degree of left hydronephrosis secondary to a 7 mm proximal UPJ stone. Prominent perinephric edema likely reflects a ruptured calyx but there is no loculated urinoma. Additional small bilateral renal stones are noted. Hypodense lesion anterior segment right hepatic lobe could be a cyst but this may be followed up with ultrasound. Normal unenhanced gallbladder, pancreas, spleen, adrenal glands . The stomach and abdominal small and large bowel are normal. There is no aortic aneurysm. There is no significant retroperitoneal lymphadenopathy. The pelvic small and large bowel are normal. There is no evidence of appendicitis, although the appendix is not clearly visualized. Status post hysterectomy. Urinary bladder is unremarkable. There is no pelvic free fluid. No discrete pelvic lymphadenopathy is identified. IMPRESSION: Moderate left hydronephrosis due to a 7 mm proximal UPJ stone with probable ruptured calyx. Additional small bilateral renal stones. Superimposed pyelonephritis cannot be excluded 02/28/19 05:28 Pt will go to ICU; awaiting eval by hospitalists and ICU docs. Heart Score/ECG Review - ECG Intrepretation Rhythm: Regular Rhythm - [place]: Normal - ST and T Flattened T Waves: No Prolonged Q-T Interval: No - ECG Impressions Normal ECG: No Ischemic Changes: Yes Tachycardia: Sinus (Pt has flipped Ts inferiorly and laterally.)
[2019-02-28 03:28] LABS: ALBUMIN 3.8 g/dl (3.4-5.0); BILIRUBIN,TOTAL 0.3 mg/dL (0.2-1); CALCIUM 8.4 mg/dL (8.5-10.1); CREATININE 1.3 mg/dL (0.55-1.3); POTASSIUM 3.4 mmol/L (3.5-5.1); TOT PROT 6.6 g/dl (6.4-8.2)
[2019-02-28] MEDS ORDERED: PIPERACILLIN/TAZOB 3.375 GM 3.375 GM in DEXTROSE 5%-WATER - 50 ML IVPB ONE (03:43)
[2019-02-28] MEDS ORDERED: MAGNESIUM SULF 50% (8.12 MEQ/2 ML-1 GM VIAL) IVPB ONE (03:46)
[2019-02-28] MEDS ORDERED: FAMOTIDINE 20 MG/50 ML IVPB 20 MG/50 ML MG IVPB ONE ×4 (03:49→15:00)
[2019-02-28] MEDS ORDERED: morphine CARPU-JECT 2 MG/1 ML DISP.SYRIN IVPUSH ONE (03:50)
[2019-02-28] MEDS ORDERED: VANCOMYCIN 1,000 MG in DEXTROSE 5%-WATER - 250 ML IVPB ONE (03:55)
[2019-02-28] MEDS ORDERED: MORPHINE SULFATE 2 MG/ML VIAL ONE (03:56)
[2019-02-28] MEDS ORDERED: VANCOMYCIN 1 GRAM (PRE-DOCKED) 1,000 MG/250 ML BAG IVPB ONE (03:57)
[2019-02-28] MEDS ORDERED: PIPERACILLIN/TAZOB 3.375 GM 3.375 GM/50 ML BAG IVPB ONE ×2 (03:57→09:31)
[2019-02-28] MEDS ORDERED: METOCLOPRAMIDE HCL INJECTION 10 MG/2 ML VIAL IVPB ONE (04:04)
[2019-02-28] MEDS ORDERED: MAGNESIUM SULF 50% (8.12 MEQ/2 ML-1 GM VIAL) ONE (04:08)
[2019-02-28] MEDS ORDERED: METOCLOPRAMIDE HCL INJECTION 10 MG/2 ML VIAL ONE (04:19)
[2019-02-28 04:52] LABS: ALBUMIN 3.4 g/dl (3.4-5.0); BILIRUBIN,TOTAL 0.3 mg/dL (0.2-1); BLOOD UREA NITROGEN 21.7 mg/dL (7-18); CALCIUM 8.1 mg/dL (8.5-10.1); CREATININE 1.4 mg/dL (0.55-1.3); POTASSIUM 3.2 mmol/L (3.5-5.1); TOT PROT 5.8 g/dl (6.4-8.2)
[2019-02-28] MEDS ORDERED: KCL 10 MEQ IVPB 10 MEQ/100 ML INFUS.BAG IVPB ONE ×3 (05:04→07:38)
[2019-02-28] MEDS: KCL 10 MEQ IVPB 10 MEQ/100 ML INFUS.BAG IVPB SCH ×3 (05:11→07:55)
--- NOTE | 2019-02-28 05:47 | PN ---
Teaching Attending Note Name of Resident: Cassie Christina ATTENDING PHYSICIAN STATEMENT I saw and evaluated the patient. I reviewed the resident's note and discussed the case with the resident. I agree with the resident's findings and plan as documented. SUBJECTIVE: Patient is a 52 year old woman with a significant past medical history of NIDDM , Chronic hypokalemia, ?Labile BP, Chronic knee pain, SVT, Asthma and GERD who presents to the ER with 4hrs of left flank pain. Patient states she was laying down at the sudden onset of her symptoms. Patient states her symptoms are associated with fever, chills, nausea and bilious vomiting. The patient denies chest pain, shortness of breath, headache and dizziness. Denies cough, diarrhea and constipation. Denies dysuria, frequency, urgency and hematuria. OBJECTIVE: Alert Vital Signs Period Temp Pulse Resp BP Sys/[place] Pulse Ox Last 24 Hr 101.5 F-102.9 F 115-124 18-20 110-143/54-90 98-98 HEENT: No Jaundice, eye redness or discharge, PERRLA, EOMI. Normocephalic, atraumatic. External ears are normal and hearing is grossly intact. No nasal discharge. Neck: Supple, nontender. No palpable adenopathy or thyromegaly. No JVD Chest: Good effort. Clear to auscultation and percussion. Heart: Regular. No S3, rub or murmur Abdomen: Not distended, soft, left CVAT and no HSM. No rebound or guarding. Normal bowel sounds. Ext: Peripheral pulses intact. No leg edema. Skin: Warm and dry. No petechiae, rash or ecchymosis. Neuro: Alert. Oriented x3. CN 2-12 grossly intact. Sensation grossly intact in all four extremities and DTR are symmetric. Psych: Appropriate mood and affect. Good insight. Current Medications Generic Name Dose Route Start Last Admin Trade Name Freq PRN Reason Stop Dose Admin Potassium Chloride 10 meq in 100 mls @ 100 mls/hr 02/28/19 05:00 02/28/19 05: 11 Potassium Chloride 10 Meq Premix Ivpb - IVPB 02/28/19 07:59 100 mls/hr Q60M IBETH Administration Home Medications Medication Instructions Recorded Potassium Chloride [K-Tab ER] 20 meq PO DAILY 02/05/16 Diphenhydramine HCl [Benadryl -] 25 mg PO Q6H 06/06/17 Albuterol 0.083% Nebulizer Maddie 1 neb NEB QID PRN 02/28/19 [Ventolin 0.083%] Albuterol Sulfate Inhaler - 1 - 2 inh PO QID PRN 02/28/19 [Ventolin Hfa Inhaler -] Ranitidine HCl [Zantac] 300 mg PO BID 02/28/19 Abnormal Lab Results 02/28/19 02/28/19 02/28/19 02:08 02:08 02:08 Neutrophils % 91.5 H D Lymphocytes % 7.4 L D Monocytes % 0.6 L D Potassium 3.4 L Chloride 108 H Carbon Dioxide 20 L BUN 23.0 H Creatinine Random Glucose 112 H Lactic Acid 4.8 H* Calcium 8.4 L Total Protein Ur Specific [place] 02/28/19 02/28/19 02/28/19 02:08 03:50 03:50 Neutrophils % Lymphocytes % Monocytes % Potassium 3.2 L Chloride 109 H Carbon Dioxide BUN 21.7 H Creatinine 1.4 H Random Glucose 133 H Lactic Acid 4.2 H* Calcium 8.1 L Total Protein 5.8 L Ur Specific [place] 1.008 L ASSESSMENT AND PLAN: 1. Sepsis due to pyelonephritis/kidney stone - CT abdomen/pelvis showed obstructing stone in left renal pelvis and evidence of pyelonephritis. Patient had a bout of hypotension in the ER, but she concedes that she has a history of labile BP. She got a dose of vancomycin and zosyn and is getting IV NS according to sepsis protocol. Will continue zosyn and descalate to rocephin once culture becomes available, trend lactic acid and continue IV NS. Will check serum Mg+, continue IV KCL, consult urology, keep her NPO, give flomax and strain her urine. Refer for out patient workup to search for stone disease risk factor. Continue comprehensive care of all her comorbid conditions. 2. NIDDM Jin implement sliding scale insulin regimen. Provide comprehensive diabetes care with patient teaching and counseling about the importance of adherence to prescribed diabetes regimen, euglycemia, eye care and foot care. 3. CKD? - may have underlying CKD since azotemia cannot be attributed entirely to unilateral obstructing stone. Will consult nephrology and avoid nephrotoxic agents such as NSAIDS, aminoglycosides, contrast dyes and certain Alternative medicine products. 4. Obesity Counseled on the risks associated with obesity. Will provide patient all the necessary assistance, counseling and positive reinforcement to facilitate weight loss. Consult homeland security program specialist. 5. DVT prophylaxis - SCD, Early ambulation 6. Advance directives - Full code
[2019-02-28] MEDS ORDERED: MORPHINE SULFATE 2 MG/ML VIAL IVPUSH PRN (06:07)
--- NOTE | 2019-02-28 06:16 | HP ---
CHIEF COMPLAINT:left flank pain PCP:Dr. Dianne Martin HISTORY OF PRESENT ILLNESS: Patient is a 53 year old female with past medical history of asthma, hypokalemia , presented to the ED due to severe diffuse abdominal pain and left flank pain that started a few hours prior to coming to the ED. Patient reported she was experiencing body aches, decreased appetite and subjective fevers all day yesterday, and last night experienced sudden onset severe 10/10 diffuse abdominal, worse on the LUQ/LLQ and left flank pain, accompanied by nausea and multiple episodes of NBNB vomiting. Patient took Ibuprofen which did not provide any relief. Due to persistence of the pain, patient called 911. Patient denies chest pain, shortness of breath, diarrhea, hematuria, dysuria. ER course was notable for: (1) Vanc and Zosyn x1 dose (2) CTAP: moderate left hydronephrosis due to a 7mm proximal UPJ stone with probable ruptured calyx. Additional bilateral small renal stones. Superimposed pyelonephritis cannot be excluded. (3) Recent Travel:denies PAST MEDICAL HISTORY: Asthma Hx of hypokalemia PAST SURGICAL HISTORY: Social History: Smoking:denies Alcohol:denies Drugs: denies Family History:noncontributory Allergies latex Allergy (Mild, Verified 02/28/19 00:52) lidocaine Allergy (Verified 02/28/19 00:52) paprika Allergy (Verified 02/28/19 00:52) peanut Allergy (Verified 02/28/19 00:52) Difficulty Breathing procaine HCl [From Novocain] Allergy (Verified 02/28/19 00:52) POLYURETHANE Allergy (Intermediate, Uncoded 02/28/19 00:52) Swelling shrimp Allergy (Intermediate, Uncoded 02/28/19 00:52) Hives HOME MEDICATIONS: Home Medications Medication Instructions Recorded Potassium Chloride [K-Tab ER] 20 meq PO DAILY 02/05/16 Diphenhydramine HCl [Benadryl -] 25 mg PO Q6H 06/06/17 Albuterol 0.083% Nebulizer Maddie 1 neb NEB QID PRN 02/28/19 [Ventolin 0.083%] Albuterol Sulfate Inhaler - 1 - 2 inh PO QID PRN 02/28/19 [Ventolin Hfa Inhaler -] Ranitidine HCl [Zantac] 300 mg PO BID 02/28/19 REVIEW OF SYSTEMS CONSTITUTIONAL: Absent: fever, chills, diaphoresis, generalized weakness, malaise, loss of appetite, weight change HEENT: Absent: rhinorrhea, nasal congestion, throat pain, throat swelling, difficulty swallowing, mouth swelling, ear pain, eye pain, visual changes CARDIOVASCULAR: Absent: chest pain, syncope, palpitations, irregular heart rate, lightheadedness , peripheral edema RESPIRATORY: Absent: cough, shortness of breath, dyspnea with exertion, orthopnea, wheezing, stridor, hemoptysis GASTROINTESTINAL:abdominal pain, nausea, vomiting, Absent: abdominal distension, diarrhea, constipation, melena, hematochezia GENITOURINARY: left flank pain Absent: dysuria, frequency, urgency, hesitancy, hematuria,genital pain MUSCULOSKELETAL: Absent: myalgia, arthralgia, joint swelling, back pain, neck pain SKIN: Absent: rash, itching, pallor HEMATOLOGIC/IMMUNOLOGIC: Absent: easy bleeding, easy bruising, lymphadenopathy, frequent infections ENDOCRINE: Absent: unexplained weight gain, unexplained weight loss, heat intolerance, cold intolerance NEUROLOGIC: Absent: headache, focal weakness or paresthesias, dizziness, unsteady gait, seizure, mental status changes, bladder or bowel incontinence PSYCHIATRIC: Absent: anxiety, depression, suicidal or homicidal ideation, hallucinations. PHYSICAL EXAMINATION Vital Signs - 24 hr 02/28/19 02/28/19 02/28/19 00:52 02:00 05:01 Temperature 102.9 F H 101.5 F H Pulse Rate 124 H Pulse Rate [ 115 H Right Radial] Respiratory 20 18 Rate Blood Pressure 143/90 Blood Pressure 110/54 L [Left Arm] O2 Sat by Pulse 98 98 98 Oximetry (%) GENERAL: Awake, alert, and fully oriented, in no acute distress. HEAD: Normal with no signs of trauma. EYES: PERRLA, EOMI, sclera anicteric, conjunctiva clear. EARS, NOSE, THROAT: Dry mucous membranes. NECK: Normal range of motion, supple. LUNGS: Decreased breath sounds on bilateral bases. HEART: Regular rate and rhythm, normal S1 and S2 without murmur, rub or gallop. ABDOMEN: Soft, nontender, not distended, normoactive bowel sounds. +Left CVA tenderness. MUSCULOSKELETAL: Normal range of motion at all joints. UPPER EXTREMITIES: 2+ pulses, warm, well-perfused. No peripheral edema. LOWER EXTREMITIES: 2+ pulses, warm, well-perfused. No peripheral edema. NEUROLOGICAL: Cranial nerves II-XII intact. Normal speech. PSYCHIATRIC: Cooperative. Good eye contact. Appropriate mood and affect. SKIN: Warm, dry, normal turgor. Laboratory Results - last 24 hr 02/28/19 02/28/19 02/28/19 02:08 02:08 02:08 WBC 4.2 RBC 4.44 Hgb 12.7 Hct 37.8 MCV 85.2 MCH 28.6 MCHC 33.5 RDW 14.3 Plt Count 146 D MPV 7.7 Absolute Neuts (auto) 3.9 Neutrophils % 91.5 H D Lymphocytes % 7.4 L D Monocytes % 0.6 L D Eosinophils % 0.3 Basophils % 0.2 Nucleated RBC % 0 Sodium 141 Potassium 3.4 L Chloride 108 H Carbon Dioxide 20 L Anion Gap 13 BUN 23.0 H Creatinine 1.3 Est GFR (CKD-EPI)AfAm 53.48 Est GFR (CKD-EPI)NonAf 46.15 Random Glucose 112 H Lactic Acid 4.8 H* Calcium 8.4 L Total Bilirubin 0.3 AST 27 ALT 20 Alkaline Phosphatase 95 Creatine Kinase Troponin I Total Protein 6.6 Albumin 3.8 Lipase TSH 1.14 Urine Color Urine Appearance Urine pH Ur Specific [place] Urine Protein Urine Glucose (UA) Urine Ketones Urine Blood Urine Nitrite Urine Bilirubin Urine Urobilinogen Ur Leukocyte Esterase Urine WBC (Auto) Urine RBC (Auto) Urine Casts (Auto) U Epithel Cells (Auto) Urine Bacteria (Auto) 02/28/19 02/28/19 02/28/19 02:08 02:08 03:50 WBC RBC Hgb Hct MCV MCH MCHC RDW Plt Count MPV Absolute Neuts (auto) Neutrophils % Lymphocytes % Monocytes % Eosinophils % Basophils % Nucleated RBC % Sodium Potassium Chloride Carbon Dioxide Anion Gap BUN Creatinine Est GFR (CKD-EPI)AfAm Est GFR (CKD-EPI)NonAf Random Glucose Lactic Acid 4.2 H* Calcium Total Bilirubin AST ALT Alkaline Phosphatase Creatine Kinase 136 Troponin I < 0.02 Total Protein Albumin Lipase TSH Urine Color Yellow Urine Appearance Clear Urine pH 5.0 D Ur Specific [place] 1.008 L Urine Protein Negative Urine Glucose (UA) Negative Urine Ketones Negative Urine Blood Trace Urine Nitrite Negative Urine Bilirubin Negative Urine Urobilinogen 0.2 Ur Leukocyte Esterase Negative Urine WBC (Auto) 1 Urine RBC (Auto) 1 Urine Casts (Auto) 0 U Epithel Cells (Auto) 1.5 Urine Bacteria (Auto) 54.1 02/28/19 02/28/19 03:50 03:50 WBC RBC Hgb Hct MCV MCH MCHC RDW Plt Count MPV Absolute Neuts (auto) Neutrophils % Lymphocytes % Monocytes % Eosinophils % Basophils % Nucleated RBC % Sodium 143 Potassium 3.2 L Chloride 109 H Carbon Dioxide 21 Anion Gap 13 BUN 21.7 H Creatinine 1.4 H Est GFR (CKD-EPI)AfAm 48.90 Est GFR (CKD-EPI)NonAf 42.19 Random Glucose 133 H Lactic Acid Calcium 8.1 L Total Bilirubin 0.3 AST 24 ALT 18 Alkaline Phosphatase 78 Creatine Kinase Troponin I Total Protein 5.8 L Albumin 3.4 Lipase 282 Cancelled TSH Urine Color Urine Appearance Urine pH Ur Specific [place] Urine Protein Urine Glucose (UA) Urine Ketones Urine Blood Urine Nitrite Urine Bilirubin Urine Urobilinogen Ur Leukocyte Esterase Urine WBC (Auto) Urine RBC (Auto) Urine Casts (Auto) U Epithel Cells (Auto) Urine Bacteria (Auto) ASSESSMENT/PLAN: Patient is a 53 year old female with past medical history of asthma, hypokalemia , presented to the ED due to severe diffuse abdominal pain and left flank pain that started a few hours prior to coming to the ED. #Sepsis likely 2/2 pyelonephritis -febrile, tachycardic -Lactic acidosis trending down 4.8 --> 4.2, will continue to trend -Vanc and Zosyn given at the ED -Will continue Zosyn 3.375gm q8h -Urine culture and blood culture pending -IV fluids #Left nephrolithiasis -CTAP: moderate left hydronephrosis due to a 7mm proximal UPJ stone with probable ruptured calyx. -Urology (Dr Landeros) consulted. -Will keep NPO for now pending uro recs -Flomax 0.4mg daily -IVF hydration -pain control with Tylenol and Morphine PRN in setting of VICKI #VICKI likely 2/2 postrenal obstruction -Cr 1.4 -avoid nephrotoxic agents such as NSAIDs and contrast -will continue to monitor renal function #Hypokalemia -patient reported hx of hypoK >15 years, with baseline at 3.0 -Has been on KCl 20mg daily -Will order magnesium #Asthma -Will continue albuterol neb prn #FEN -IV 07/15 NS @100cc/hr -HypoK, repleted -Routine bmp monitoring -NPO except meds #Prophylaxis -SCDs for now, awaiting uro recs #Disposition -full code -admit to tele Visit type - Emergency Visit Emergency Visit: Yes ED Registration Date: 02/28/19 Care time: The patient presented to the Emergency Department on the above date and was hospitalized for further evaluation of their emergent condition. - New Patient This patient is new to me today: Yes Date on this admission: 02/28/19 - Critical Care Critical Care patient: No ATTENDING PHYSICIAN STATEMENT I saw and evaluated the patient. I reviewed the resident's note and discussed the case with the resident. I agree with the resident's findings and plan as documented. SUBJECTIVE: OBJECTIVE: ASSESSMENT AND PLAN:
[2019-02-28] MEDS ORDERED: SODIUM CHLORIDE 0.45% 1,000 ML IV SCH (06:45)
[2019-02-28 06:46] LABS: ANISOCYTOSIS 0; HELMET CELLS 0; HOWELL-JOLLY BODIES 0; MACROCYTOSIS 0; OVALOCYTE 0; PLATELET ESTIMATE NORMAL; ROULEAU 0; SICKELED CELLS 0; TARGET CELLS 0; TEAR DROP CELLS 0; TOXIC GRANULATION 0
[2019-02-28] MEDS ORDERED: NOREPINEPHRINE BITARTRATE 4,000 MCG in DEXTROSE 5%-WATER - 496 ML IV SCH (07:15)
[2019-02-28 07:35] LABS: BASO % 0.2 % (0-2.0); EOS % 0.1 % (0-4.5); HEMATOCRIT 32.1 % (32.4-45.2); HEMOGLOBIN 10.6 GM/dL (10.7-15.3); LYMPH % 8.1 % (8-40); MCH 28.4 pg (25.7-33.7); MCHC 33.2 g/dl (32.0-36.0); MEAN CELL VOLUME 85.7 fl (80-96); MEAN PLT VOLUME 7.4 fl (7.5-11.1); NEUT % 90.6 % (42.8-82.8); PLATELET COUNT 80 K/MM3 (134-434); RBC 3.74 M/mm3 (3.60-5.2); RDW 14.4 % (11.6-15.6); WHITE BLOOD COUNT 4.4 K/mm3 (4.0-10.0)
[2019-02-28] MEDS ORDERED: NOREPINEPHRINE BITARTRATE 4 MG/4 ML ML IV ONE ×2 (07:38→15:30)
[2019-02-28] MEDS: TAMSULOSIN HCL 0.4 MG CAP PO SCH (08:37)
[2019-02-28] MEDS: POTASSIUM CHLORIDE TABS 20 MEQ TABLET.ER (FP) PO SCH (09:37)
[2019-02-28] MEDS: ONDANSETRON 4 MG/2 ML VIAL IVPUSH PRN (09:52)
[2019-02-28] MEDS ORDERED: PATIENT'S OWN MEDICATION (NON-FORMULARY) (Potassium Chloride [K-Tab Er] 20 MEQ) PO SCH (10:00)
[2019-02-28] MEDS ORDERED: PATIENT'S OWN MEDICATION (NON-FORMULARY) (Ranitidine Hcl [Zantac] 300 MG) PO SCH (10:00)
[2019-02-28] MEDS ORDERED: PIPERACILLIN/TAZOB 3.375 GM 3.375 GM in DEXTROSE 5%-WATER - 50 ML IVPB SCH (10:00)
[2019-02-28] MEDS: ACETAMINOPHEN 1000 MG/100 ML VIAL (NON FORMULARY) IVPB PRN ×3 (11:15→23:42)
--- NOTE | 2019-02-28 11:30 | EKG ---
Test Reason : Blood Pressure : / mmHG Vent. Rate : 107 BPM Atrial Rate : 107 BPM P-R Int : 136 ms QRS Dur : 088 ms QT Int : 346 ms P-R-T Axes : 055 054 050 degrees QTc Int : 461 ms SINUS TACHYCARDIA NONSPECIFIC ST AND T WAVE ABNORMALITY ABNORMAL ECG WHEN COMPARED WITH ECG OF 28-FEB-2019 02:16, ST NO LONGER DEPRESSED IN INFERIOR LEADS T WAVE INVERSION NO LONGER EVIDENT IN INFERIOR LEADS NONSPECIFIC T WAVE ABNORMALITY, IMPROVED IN LATERAL LEADS Confirmed by GONZALO LOCO MD ([id number]) on 02/28/2019 11:30:13 AM Referred By: Confirmed By:GONZALO LOCO MD
--- NOTE | 2019-02-28 11:31 | EKG ---
Test Reason : Blood Pressure : / mmHG Vent. Rate : 114 BPM Atrial Rate : 114 BPM P-R Int : 136 ms QRS Dur : 080 ms QT Int : 296 ms P-R-T Axes : 040 039 -51 degrees QTc Int : 407 ms SINUS TACHYCARDIA ABNORMAL ECG WHEN COMPARED WITH ECG OF 20-FEB-2018 23:04, T WAVE INVERSION NOW EVIDENT IN ANTEROLATERAL LEADS Confirmed by GONZALO LOCO MD ([id number]) on 02/28/2019 11:31:24 AM Referred By: Confirmed By:GONZALO LOCO MD
--- NOTE | 2019-02-28 13:20 | CONSULT ---
Consultation: REQUESTING PROVIDER: Dr. Navarro CONSULT REQUEST: We have been asked to medically evaluate this patient for septic shock 2/2 pyelonephritis and obstructing L renal stone HISTORY OF PRESENT ILLNESS: 53 year old female with past medical history of asthma, hypokalemia and prior urinary tract infections presents to the hospital for sudden onset diffuse, 10/ 10 abdominal pain with associated left flank pain for 1 day. States that she felt the pain mostly in the left lower quadrant and described it as a stabbing pain. Reported that it radiated to her left flank and groin. Reports fevers and chills at home. States that she has had rancid smelling urine for several months but denies overt dysuria or frequency. Reports that she last had a urinary tract infection 1 year ago for which she was on antibiotics. Patient recalled that she had small kidney stones in the past but was never hospitalized for urinary tract infections. Denies any sick contacts or recent travel. Has not recently been on antibiotics. Patient currently complains of increased shortness of breath for which she needs to sit up and take deep breaths to recover. Denies chest pain, nausea, vomiting, diarrhea, fevers, chills, headaches, lightheadedness. Smoke: never Alcohol: none Drugs: none Occupation: home health aid Family hx: father with hypertension, no significant history in mother, one healthy brother and one healthy son Allergies: as stated per chart REVIEW OF SYSTEMS: CONSTITUTIONAL: fever, chills Absent: diaphoresis, generalized weakness, malaise, loss of appetite, weight change HEENT: Absent: rhinorrhea, nasal congestion, throat pain, throat swelling, difficulty swallowing, mouth swelling, ear pain, eye pain, visual changes CARDIOVASCULAR: Absent: chest pain, syncope, palpitations, irregular heart rate, lightheadedness , peripheral edema RESPIRATORY: shortness of breath Absent: cough, dyspnea with exertion, orthopnea, wheezing, stridor, hemoptysis GASTROINTESTINAL:abdominal pain Absent: abdominal distension, nausea, vomiting, diarrhea, constipation, melena , hematochezia GENITOURINARY: flank pain Absent: dysuria, frequency, urgency, hesitancy, hematuria, genital pain MUSCULOSKELETAL: Absent: myalgia, arthralgia, joint swelling, back pain, neck pain SKIN: Absent: rash, itching, pallor HEMATOLOGIC/IMMUNOLOGIC: Absent: easy bleeding, easy bruising, lymphadenopathy, frequent infections ENDOCRINE: Absent: unexplained weight gain, unexplained weight loss, heat intolerance, cold intolerance NEUROLOGIC: Absent: headache, focal weakness or paresthesias, dizziness, unsteady gait, seizure, mental status changes, bladder or bowel incontinence PSYCHIATRIC: Absent: anxiety, depression, suicidal or homicidal ideation, hallucinations. PHYSICAL EXAMINATION Vital Signs - 24 hr 02/28/19 02/28/19 02/28/19 00:52 02:00 05:01 Temperature 102.9 F H 101.5 F H Pulse Rate 124 H Pulse Rate [ 115 H Right Radial] Respiratory 20 18 Rate Blood Pressure 143/90 Blood Pressure 110/54 L ing . O2 Sat by Pulse 98 98 98 Oximetry (%) 02/28/19 02/28/19 02/28/19 06:47 06:55 07:00 Temperature 99.5 F Pulse Rate Pulse Rate [ 115 H 112 H 115 H Right Radial] Respiratory 17 22 H 20 Rate Blood Pressure Blood Pressure 89/56 L 101/50 L 92/46 L [Left Arm] O2 Sat by Pulse 100 100 98 Oximetry (%) 02/28/19 02/28/19 02/28/19 07:09 07:22 08:00 Temperature Pulse Rate 112 H Pulse Rate [ 110 H 109 H Right Radial] Respiratory 24 H 20 21 H Rate Blood Pressure 74/50 L Blood Pressure 85/51 L 74/50 L [Left Arm] O2 Sat by Pulse 97 98 98 Oximetry (%) 02/28/19 02/28/19 02/28/19 08:14 08:40 08:45 Temperature Pulse Rate Pulse Rate [ 108 H 108 H 109 H Right Radial] Respiratory 22 H 22 H 22 H Rate Blood Pressure Blood Pressure 66/41 L 63/48 L 86/63 L [Left Arm] O2 Sat by Pulse 98 100 100 Oximetry (%) 02/28/19 02/28/19 02/28/19 09:47 10:20 10:24 Temperature 98.7 F Pulse Rate 111 H 106 H Pulse Rate [ 111 H 104 H Right Radial] Respiratory 23 H 24 H Rate Blood Pressure 85/52 L 81/51 L Blood Pressure 85/52 L 81/51 L [Left Arm] O2 Sat by Pulse 100 98 Oximetry (%) 02/28/19 02/28/19 02/28/19 10:46 11:00 11:30 Temperature Pulse Rate 108 H Pulse Rate [ 108 H 108 H 110 H Right Radial] Respiratory 20 20 20 Rate Blood Pressure 73/49 L Blood Pressure 73/49 L 91/67 79/46 L [Left Arm] O2 Sat by Pulse 98 100 100 Oximetry (%) 02/28/19 02/28/19 02/28/19 11:35 11:41 11:42 Temperature Pulse Rate 110 H Pulse Rate [ 108 H 110 H Right Radial] Respiratory 19 20 Rate Blood Pressure 74/52 L Blood Pressure 74/48 L 74/52 L [Left Arm] O2 Sat by Pulse 100 100 Oximetry (%) 02/28/19 02/28/19 12:30 12:50 Temperature Pulse Rate Pulse Rate [ 107 H 106 H Right Radial] Respiratory 20 20 Rate Blood Pressure Blood Pressure 77/49 L 72/48 L [Left Arm] O2 Sat by Pulse 100 100 Oximetry (%) GENERAL: A&Ox3, no acute distress EYES: PERRLA, EOMI ENT: Moist mucus membranes NECK: No JVD LUNGS: CTA, no wheezes HEART: RRR, no murmurs ABDOMEN: Soft, nontender, BS present MUSCULOSKELETAL: + CVA tenderness on L EXTREMITIES: 2+ pulses, 1+ pitting edema NEUROLOGICAL: Cranial nerves II-XII intact. Laboratory Results - last 24 hr 02/28/19 02/28/19 02/28/19 02:08 02:08 02:08 WBC 4.2 RBC 4.44 Hgb 12.7 Hct 37.8 MCV 85.2 MCH 28.6 MCHC 33.5 RDW 14.3 Plt Count 146 D MPV 7.7 Absolute Neuts (auto) 3.9 Neutrophils % 91.5 H D Neutrophils % (Manual) 49.5 Band Neutrophils % 38.4 Lymphocytes % 7.4 L D Lymphocytes % (Manual) 8.1 Monocytes % 0.6 L D Monocytes % (Manual) 0 L Eosinophils % 0.3 Eosinophils % (Manual) 0.0 Basophils % 0.2 Basophils % (Manual) 0.0 Myelocytes % (Man) 3 H Promyelocytes % (Man) 0 Blast Cells % (Manual) 0 Nucleated RBC % 0 Metamyelocytes 1 Hypochromia 0 Toxic Granulation 0 Dohle Bodies 0 Platelet Estimate Normal Polychromasia 0 Poikilocytosis 0 Basophilic Stippling 0 Anisocytosis 0 Microcytosis 0 Macrocytosis 0 Spherocytes 0 Sickle Cells 0 Target Cells 0 Tear Drop Cells 0 Ovalocytes 0 Stomatocytes 0 Helmet Cells 0 [place] Bodies 0 [place] Rings 0 Deangelo Cells 0 Acanthocytes (Spur) 0 Rouleaux 0 Fragmented RBCs 0 Schistocytes 0 Sodium 141 Potassium 3.4 L Chloride 108 H Carbon Dioxide 20 L Anion Gap 13 BUN 23.0 H Creatinine 1.3 Est GFR (CKD-EPI)AfAm 53.48 Est GFR (CKD-EPI)NonAf 46.15 Random Glucose 112 H Lactic Acid 4.8 H* Calcium 8.4 L Magnesium Total Bilirubin 0.3 AST 27 ALT 20 Alkaline Phosphatase 95 Creatine Kinase Troponin I Total Protein 6.6 Albumin 3.8 Lipase TSH 1.14 Urine Color Urine Appearance Urine pH Ur Specific [place] Urine Protein Urine Glucose (UA) Urine Ketones Urine Blood Urine Nitrite Urine Bilirubin Urine Urobilinogen Ur Leukocyte Esterase Urine WBC (Auto) Urine RBC (Auto) Urine Casts (Auto) U Epithel Cells (Auto) Urine Bacteria (Auto) 02/28/19 02/28/19 02/28/19 02:08 02:08 03:50 WBC RBC Hgb Hct MCV MCH MCHC RDW Plt Count MPV Absolute Neuts (auto) Neutrophils % Neutrophils % (Manual) Band Neutrophils % Lymphocytes % Lymphocytes % (Manual) Monocytes % Monocytes % (Manual) Eosinophils % Eosinophils % (Manual) Basophils % Basophils % (Manual) Myelocytes % (Man) Promyelocytes % (Man) Blast Cells % (Manual) Nucleated RBC % Metamyelocytes Hypochromia Toxic Granulation Dohle Bodies Platelet Estimate Polychromasia Poikilocytosis Basophilic Stippling Anisocytosis Microcytosis Macrocytosis Spherocytes Sickle Cells Target Cells Tear Drop Cells Ovalocytes Stomatocytes Helmet Cells [place] Bodies [place] Rings [place] Cells Acanthocytes (Spur) Rouleaux Fragmented RBCs Schistocytes Sodium Potassium Chloride Carbon Dioxide Anion Gap BUN Creatinine Est GFR (CKD-EPI)AfAm Est GFR (CKD-EPI)NonAf Random Glucose Lactic Acid 4.2 H* Calcium Magnesium Total Bilirubin AST ALT Alkaline Phosphatase Creatine Kinase 136 Troponin I < 0.02 Total Protein Albumin Lipase TSH Urine Color Yellow Urine Appearance Clear Urine pH 5.0 D Ur Specific [place] 1.008 L Urine Protein Negative Urine Glucose (UA) Negative Urine Ketones Negative Urine Blood Trace Urine Nitrite Negative Urine Bilirubin Negative Urine Urobilinogen 0.2 Ur Leukocyte Esterase Negative Urine WBC (Auto) 1 Urine RBC (Auto) 1 Urine Casts (Auto) 0 U Epithel Cells (Auto) 1.5 Urine Bacteria (Auto) 54.1 02/28/19 02/28/19 02/28/19 03:50 03:50 07:25 WBC RBC Hgb Hct MCV MCH MCHC RDW Plt Count MPV Absolute Neuts (auto) Neutrophils % Neutrophils % (Manual) Band Neutrophils % Lymphocytes % Lymphocytes % (Manual) Monocytes % Monocytes % (Manual) Eosinophils % Eosinophils % (Manual) Basophils % Basophils % (Manual) Myelocytes % (Man) Promyelocytes % (Man) Blast Cells % (Manual) Nucleated RBC % Metamyelocytes Hypochromia Toxic Granulation Dohle Bodies Platelet Estimate Polychromasia Poikilocytosis Basophilic Stippling Anisocytosis Microcytosis Macrocytosis Spherocytes Sickle Cells Target Cells Tear Drop Cells Ovalocytes Stomatocytes Helmet Cells [place] Bodies [place] Rings [place] Cells Acanthocytes (Spur) Rouleaux Fragmented RBCs Schistocytes Sodium 143 Potassium 3.2 L Chloride 109 H Carbon Dioxide 21 Anion Gap 13 BUN 21.7 H Creatinine 1.4 H Est GFR (CKD-EPI)AfAm 48.90 Est GFR (CKD-EPI)NonAf 42.19 Random Glucose 133 H Lactic Acid Calcium 8.1 L Magnesium 1.9 Total Bilirubin 0.3 AST 24 ALT 18 Alkaline Phosphatase 78 Creatine Kinase Troponin I Total Protein 5.8 L Albumin 3.4 Lipase 282 Cancelled TSH Urine Color Urine Appearance Urine pH Ur Specific [place] Urine Protein Urine Glucose (UA) Urine Ketones Urine Blood Urine Nitrite Urine Bilirubin Urine Urobilinogen Ur Leukocyte Esterase Urine WBC (Auto) Urine RBC (Auto) Urine Casts (Auto) U Epithel Cells (Auto) Urine Bacteria (Auto) 02/28/19 02/28/19 07:25 07:25 WBC 4.4 RBC 3.74 Hgb 10.6 L Hct 32.1 L D MCV 85.7 MCH 28.4 MCHC 33.2 RDW 14.4 Plt Count 80 L D MPV 7.4 L Absolute Neuts (auto) 4.0 Neutrophils % 90.6 H Neutrophils % (Manual) Band Neutrophils % Lymphocytes % 8.1 Lymphocytes % (Manual) Monocytes % 1.0 L Monocytes % (Manual) Eosinophils % 0.1 Eosinophils % (Manual) Basophils % 0.2 Basophils % (Manual) Myelocytes % (Man) Promyelocytes % (Man) Blast Cells % (Manual) Nucleated RBC % 0 Metamyelocytes Hypochromia Toxic Granulation Dohle Bodies Platelet Estimate Polychromasia Poikilocytosis Basophilic Stippling Anisocytosis Microcytosis Macrocytosis Spherocytes Sickle Cells Target Cells Tear Drop Cells Ovalocytes Stomatocytes Helmet Cells [place] Bodies [place] Rings Deangelo Cells Acanthocytes (Spur) Rouleaux Fragmented RBCs Schistocytes Sodium Potassium Chloride Carbon Dioxide Anion Gap BUN Creatinine Est GFR (CKD-EPI)AfAm Est GFR (CKD-EPI)NonAf Random Glucose Lactic Acid 3.7 H* Calcium Magnesium Total Bilirubin AST ALT Alkaline Phosphatase Creatine Kinase Troponin I Total Protein Albumin Lipase TSH Urine Color Urine Appearance Urine pH Ur Specific [place] Urine Protein Urine Glucose (UA) Urine Ketones Urine Blood Urine Nitrite Urine Bilirubin Urine Urobilinogen Ur Leukocyte Esterase Urine WBC (Auto) Urine RBC (Auto) Urine Casts (Auto) U Epithel Cells (Auto) Urine Bacteria (Auto) Active Medications Generic Name Dose Route Start Last Admin Trade Name Freq PRN Reason Stop Dose Admin Acetaminophen 1,000 mg 02/28/19 06:14 02/28/19 11:15 Ofirmev Injection - IVPB 1,000 mg Q6H PRN Administration PAIN OR FEVER Albuterol Sulfate 1 amp 02/28/19 06:13 Ventolin 0.083% Nebulizer Soln - NEB QID PRN WHEEZING Piperacillin Sod/Tazobactam 50 mls @ 100 mls/hr 02/28/19 10:00 Sod 3.375 gm/ Dextrose IVPB Q8H-IV IBETH Protocol Sodium Chloride 1,000 mls @ 100 mls/hr 02/28/19 06:45 02/28/19 06:58 1/2 Normal Saline IV 100 mls/hr ASDIR IBETH Administration Norepinephrine Bitartrate 4, 500 mls @ 37.5 mls/hr 02/28/19 07:15 02/28/19 11 :42 000 mcg/ Dextrose IV 12 mcg/min TITR IBETH 90 mls/hr Titration Protocol 5 MCG/MIN Piperacillin Sod/Tazobactam 50 mls @ 100 mls/hr 02/28/19 10:00 02/28/19 09:52 Sod 3.375 gm/ Dextrose IVPB 08/19/19 02:29 100 mls/hr Q8H-IV IBETH Administration Morphine Sulfate 2 mg 02/28/19 06:07 Morphine Sulfate IVPUSH Q4H PRN PAIN LEVEL 7 - 10 Non-Formulary Medication 300 mg 02/28/19 10:00 Ranitidine Hcl [Zantac] PO BID IBETH Ondansetron HCl 4 mg 02/28/19 06:16 02/28/19 09:52 Zofran Injection IVPUSH 4 mg Q6H PRN Administration NAUSEA AND/OR VOMITING Potassium Chloride 20 meq 02/28/19 10:00 02/28/19 09:37 K-Dur - PO 20 meq DAILY IBETH Administration Tamsulosin HCl 0.4 mg 02/28/19 08:30 02/28/19 08:37 Flomax - PO 0.4 mg DAILY@0830 IBETH Administration ASSESSMENT/PLAN: 53 year old female with past medical history of asthma, hypokalemia and prior urinary tract infections presents to the hospital for sudden onset diffuse, 10/ 10 abdominal pain with associated left flank pain for 1 day and admitted for septic shock 2/2 pyelonephritis #Septic Shock 2/2 Pyelonephritis #Obstructing Left Sided Renal Calculous #Hypokalemia #Lactic Acidosis #Acute Respiratory Failure Neurological -neurologically intact without any focal deficits Cardiovascular -Currently in septic shock, initial MAPs were in the 40s; s/p 5-6L of normal saline and levophed at 12mcgs, patient's MAP improved to ~61-65 -continue to titrate down norepinephrine -give stress dose solu-cortef at 50mg q6h -patient currently appears volume overloaded and CXR shows increasing congestive changes -will get echocardiogram to assess LV function and ejection fraction -EKG did not show signs of acute ischemia -will repeat set of labs and troponins now as patient reported chest pressure and increased difficulty breathing, however I suspect this may be from volume overload after 5-6L of saline administration Pulmonary -patient had increased dyspnea on my examination, likely 2/2 volume overload -held fluids at present time -CXR shows increasing congestive changes with cephalization of vessels -will place patient on high flow 50lpm and 50% FiO2 as patient is high risk of ARDS -monitor respiratory status for decompensation -repeat CXR in morning Gastrointestinal -pepcid ordered, otherwise no acute abnormalities Renal -patient has 8mm L sided obstructing stone at the ureteropelvic junction, likely causing her sepsis -Dr. Rebolledo was spoken to, recommends IR percutaneous drainage via nephrostomy placement -Dr. Chacko discussed the case, will obtain INR and keep NPO for possible percutaneous drainage -IV fluids were given ~ 6L however were stopped in the setting of fluid overload -Hypokalemia; patient reports this being a chronic issue -s/p 3 bags K riders -recheck potassium now and in AM Infectious Diseases -septic shock 2/2 pyelonephritis and 8mm obstructing stone on the left -s/p 6L of normal saline administration -hypotension due to sepsis, on levophed, titrate down as tolerated -received vanc/zosyn in ED, continue with meropenem -blood cultures growing gram (-) bacilli, await speciation -ID consultation appreciated -will likely need percutaneous drainage proximal to obstruction Hematology/Oncology -Anemia, will assess iron studies and reticulocyte count -Thrombocytopenia - acute drop from prior exams, likely 2/2 to sepsis -will continue to monitor and repeat CBC in AM FEN -s/p 6L normal saline, held fluids in the setting of overload -hypokalemia repleted, will recheck -NPO for possible procedure Prophylaxis -SCDs Disposition -admit ICU, critically ill - expect at least 48 hours of ICU level of care Visit type - Emergency Visit Emergency Visit: Yes ED Registration Date: 02/28/19 Care time: The patient presented to the Emergency Department on the above date and was hospitalized for further evaluation of their emergent condition. - New Patient This patient is new to me today: Yes Date on this admission: 02/28/19 - Critical Care Critical Care patient: Yes Total Critical Care Time (in minutes): 65 Critical Care Statement: The care of this patient involved high complexity decision making to prevent further life threatening deterioration of the patient 's condition and/or to evaluate & treat vital organ system(s) failure or risk of failure. ATTENDING PHYSICIAN STATEMENT I saw and evaluated the patient. I reviewed the resident's note and discussed the case with the resident. I agree with the resident's findings and plan as documented. SUBJECTIVE: OBJECTIVE: ASSESSMENT AND PLAN:
--- NOTE | 2019-02-28 13:54 | PN ---
Progress Note (short form) - Note Progress Note: ID consult dictated imp/reccd 53 yo female with pmh asthma, hypokalemia admitted with acute onset of fevers/ chills/left flank pain yesterday accompanied by vomiting she though she had food poisoning but when she didnt get better she came to the Ed now on levophed as she remained hypotensive after IV fluid resuscitation now notes chest discomfort after IVF travel to [place] to [facility] scan with left hydronephrosis due to stone thrombocytopenis suspected sepsis due to obstructive uropathy d/w ICU resident switch to meropenem to cover empirically for resistant GNR (esbl organisms) d/w urology further management- stent versus percutaneous nephrostomy f/u cultures ICU to evaluate c/o chest discomfort/SOB- d/w ICU resident Problem List - Problems (1) Sepsis Code(s): A41.9 - SEPSIS, UNSPECIFIED ORGANISM (2) Obstructive uropathy Code(s): N13.9 - OBSTRUCTIVE AND REFLUX UROPATHY, UNSPECIFIED (3) Hypokalemia Code(s): E87.6 - HYPOKALEMIA
--- NOTE | 2019-02-28 14:34 | PN ---
Teaching Attending Note Name of Resident: Alexander Ochoa ATTENDING PHYSICIAN STATEMENT I saw and evaluated the patient. I reviewed the resident's note and discussed the case with the resident. I agree with the resident's findings and plan as documented. SUBJECTIVE: 53 F, asthma and hypokalemia. Admitted via the ER due to severe diffuse abdominal pain and left flank pain that started a few hours prior to coming to the ED. Has been experiencing body aches, decreased appetite, and fevers/chills. Last night acute worsening of diffuse 10/10 abdominal pain. No CP or SOB. She was not responsive to IVF resuscitation so she was started on NE for hemodynamic support. Urology has been paged for evaluation. Intake & Output 02/25/19 02/26/19 02/27/19 02/28/19 23:59 23:59 23:59 23:59 Intake Total 800 Balance 800 Weight 170 lb Last Vital Signs Temp Pulse Resp BP Pulse Ox 98.7 F 108 H 20 85/56 L 100 02/28/19 10:20 02/28/19 13:40 02/28/19 13:40 02/28/19 13:40 02/28/19 13:40 Active Medications Acetaminophen (Ofirmev Injection -) 1,000 mg IVPB Q6H PRN PRN Reason: PAIN OR FEVER Last Admin: 02/28/19 11:15 Dose: 1,000 mg Albuterol Sulfate (Ventolin 0.083% Nebulizer Soln -) 1 amp NEB QID PRN PRN Reason: WHEEZING Sodium Chloride (1/2 Normal Saline) 1,000 mls @ 100 mls/hr IV ASDIR IBETH Last Admin: 02/28/19 06:58 Dose: 100 mls/hr Norepinephrine Bitartrate 4, (000 mcg/ Dextrose) 500 mls @ 37.5 mls/hr IV TITR IBETH; Protocol Last Titration: 02/28/19 13:40 Dose: 13.5 mcg/min, 101.25 mls/hr Meropenem 1 gm/ Dextrose 100 mls @ 200 mls/hr IVPB Q8H-IV IBETH Famotidine/Sodium Chloride (Pepcid 20 Mg Premixed Ivpb -) 20 mg in 50 mls @ 100 mls/hr IVPB ONCE ONE Stop: 02/28/19 14:44 Morphine Sulfate (Morphine Sulfate) 2 mg IVPUSH Q4H PRN PRN Reason: PAIN LEVEL 7 - 10 Non-Formulary Medication (Ranitidine Hcl [Zantac]) 300 mg PO BID [facility] Ondansetron HCl (Zofran Injection) 4 mg IVPUSH Q6H PRN PRN Reason: NAUSEA AND/OR VOMITING Last Admin: 02/28/19 09:52 Dose: 4 mg Potassium Chloride (K-Dur -) 20 meq PO DAILY [facility] Last Admin: 02/28/19 09:37 Dose: 20 meq Tamsulosin HCl (Flomax -) 0.4 mg PO DAILY@0830 [facility] Last Admin: 02/28/19 08:37 Dose: 0.4 mg GENERAL: Awake, alert, and oriented HEAD: Normal with no signs of trauma. EYES: PERRLA, EOMI, sclera anicteric, conjunctiva clear. EARS, NOSE, THROAT: Dry mucous membranes. NECK: Normal range of motion, supple. LUNGS: Decreased breath sounds on bilateral bases. HEART: Regular rate and rhythm, normal S1 and S2 without murmur, rub or gallop. ABDOMEN: Soft, (+) diffuse tenderness more focused in the left flank, (+) bowel sounds. MUSCULOSKELETAL: Normal range of motion at all joints. UPPER EXTREMITIES: 2+ pulses, warm, well-perfused. No peripheral edema. LOWER EXTREMITIES: 2+ pulses, warm, well-perfused. No peripheral edema. NEUROLOGICAL: Non-focal PSYCHIATRIC: Cooperative. Good eye contact. Appropriate mood and affect. SKIN: Warm, dry, normal turgor. Laboratory Results - last 24 hr 02/28/19 02/28/19 02/28/19 02:08 02:08 02:08 WBC 4.2 RBC 4.44 Hgb 12.7 Hct 37.8 MCV 85.2 MCH 28.6 MCHC 33.5 RDW 14.3 Plt Count 146 D MPV 7.7 Absolute Neuts (auto) 3.9 Neutrophils % 91.5 H D Lymphocytes % 7.4 L D Monocytes % 0.6 L D Eosinophils % 0.3 Basophils % 0.2 Nucleated RBC % 0 Sodium 141 Potassium 3.4 L Chloride 108 H Carbon Dioxide 20 L Anion Gap 13 BUN 23.0 H Creatinine 1.3 Est GFR (CKD-EPI)AfAm 53.48 Est GFR (CKD-EPI)NonAf 46.15 Random Glucose 112 H Lactic Acid 4.8 H* Calcium 8.4 L Total Bilirubin 0.3 AST 27 ALT 20 Alkaline Phosphatase 95 Creatine Kinase Troponin I Total Protein 6.6 Albumin 3.8 Lipase TSH 1.14 Urine Color Urine Appearance Urine pH Ur Specific [place] Urine Protein Urine Glucose (UA) Urine Ketones Urine Blood Urine Nitrite Urine Bilirubin Urine Urobilinogen Ur Leukocyte Esterase Urine WBC (Auto) Urine RBC (Auto) Urine Casts (Auto) U Epithel Cells (Auto) Urine Bacteria (Auto) 02/28/19 02/28/19 02/28/19 02:08 02:08 03:50 WBC RBC Hgb Hct MCV MCH MCHC RDW Plt Count MPV Absolute Neuts (auto) Neutrophils % Lymphocytes % Monocytes % Eosinophils % Basophils % Nucleated RBC % Sodium Potassium Chloride Carbon Dioxide Anion Gap BUN Creatinine Est GFR (CKD-EPI)AfAm Est GFR (CKD-EPI)NonAf Random Glucose Lactic Acid 4.2 H* Calcium Total Bilirubin AST ALT Alkaline Phosphatase Creatine Kinase 136 Troponin I < 0.02 Total Protein Albumin Lipase TSH Urine Color Yellow Urine Appearance Clear Urine pH 5.0 D Ur Specific [place] 1.008 L Urine Protein Negative Urine Glucose (UA) Negative Urine Ketones Negative Urine Blood Trace Urine Nitrite Negative Urine Bilirubin Negative Urine Urobilinogen 0.2 Ur Leukocyte Esterase Negative Urine WBC (Auto) 1 Urine RBC (Auto) 1 Urine Casts (Auto) 0 U Epithel Cells (Auto) 1.5 Urine Bacteria (Auto) 54.1 02/28/19 02/28/19 03:50 03:50 WBC RBC Hgb Hct MCV MCH MCHC RDW Plt Count MPV Absolute Neuts (auto) Neutrophils % Lymphocytes % Monocytes % Eosinophils % Basophils % Nucleated RBC % Sodium 143 Potassium 3.2 L Chloride 109 H Carbon Dioxide 21 Anion Gap 13 BUN 21.7 H Creatinine 1.4 H Est GFR (CKD-EPI)AfAm 48.90 Est GFR (CKD-EPI)NonAf 42.19 Random Glucose 133 H Lactic Acid Calcium 8.1 L Total Bilirubin 0.3 AST 24 ALT 18 Alkaline Phosphatase 78 Creatine Kinase Troponin I Total Protein 5.8 L Albumin 3.4 Lipase 282 Cancelled TSH Urine Color Urine Appearance Urine pH Ur Specific [place] Urine Protein Urine Glucose (UA) Urine Ketones Urine Blood Urine Nitrite Urine Bilirubin Urine Urobilinogen Ur Leukocyte Esterase Urine WBC (Auto) Urine RBC (Auto) Urine Casts (Auto) U Epithel Cells (Auto) Urine Bacteria (Auto) ASSESSMENT/PLAN: Septic Shock due to Pyelonephritis Asthma: stable Hypokalemia (?) Adrenal insufficiency VICKI ABX per ID Aggressive volume resuscitation Replete lytes Pressors to maintain MAP > 65 Strict I & O Hydrocortisone / Fludrocortisone for shock O2 as needed Monitor for ARDS Urology has been paged for evaluation Pain control Follow Renal function Requires ICU monitoring for shock Dr Damon Critical care time spent in reviewing chart, evaluating patient and formulating plan - 36 minutes.
[2019-02-28] MEDS ORDERED: DEXTROSE 5%-WATER 100 ML IVPB ONE (14:53)
[2019-02-28] MEDS ORDERED: MEROPENEM 1 GM VIAL (RESTRICTED TO ID) IVPB ONE (14:53)
--- NOTE | 2019-02-28 15:06 | CONS ---
DATE OF CONSULTATION: 02/28/2019 REQUESTED BY: Hospitalist Service This is a 53-year-old woman with past medical history of asthma. She also has a history of chronic hypokalemia; it is unclear why. She presents to the emergency room with acute onset of fevers with chills. She felt ice cold. Left flank pain, accompanied by profuse vomiting. She thought that, perhaps, she had food poisoning, given the vomiting, so she stayed at home and tried to see if she felt better, but she continued to have these chills and to have this pain and she presented to the ER. At that time, she had no chest pain or shortness of breath. In the ER, she was given vancomycin and Zosyn. She had a CT scan that showed moderate left hydronephrosis. She has significant perinephric stranding with a small amount of perinephric fluid and with an 8 x 6.5-mm obstructing stone. She was fluid resuscitated. Her blood pressure continued to stay low and she was started on Levophed. She is being admitted to the ICU. PAST MEDICAL HISTORY: Notable for the asthma and hypokalemia. 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 She denies any cigarette, alcohol, or substance use. FAMILY HISTORY: Noncontributory. She allergic to LATEX, LIDOCAINE, PAPRIKA, PEANUTS, PROCAINE, POLYURETHANE, and SHRIMP. MEDICATIONS AT HOME: Potassium, Benadryl, Ventolin inhaler, and ranitidine. REVIEW OF SYSTEMS: She reports that she has had a problem with swelling of her legs. She says nobody knows why. Recently, both her feet were swollen. She reports that, back in August, she had an echocardiogram that showed a small pericardial effusion; was told she has resolving pericarditis. She has been told before she has small , nonobstructive renal stones. She denies any diarrhea. She has persistent left flank pain. She now notes that she has some mild shortness of breath. She also reports some midsternal chest discomfort. PHYSICAL EXAMINATION: General: She is awake and alert. Vital Signs: Her temperature maximum was 102.9, current temperature is 98.7, pulse is 108, blood pressure 85/56, respiratory rate is 20, saturating 100% on 3 L. She is now on Levophed. HEENT: She is normocephalic. Her eyes are anicteric. She has no thrush. Neck: Supple. Lungs: Diminished breath sounds at the bases. Heart: Regular rate and rhythm. Abdomen: Soft. She has left CVA tenderness. Extremities: Without edema. Skin: She has no rash. White count is 4.4, hemoglobin 10.6, platelets are 80,000. Her INR is 0.9. Her lactic acid on admission was 4.2, repeat of 3.7. BUN is 21 and creatinine is 1.7 with normal LFTs. Urinalysis is negative. SUMMARY: This is a 53-year-old woman with: 1. Suspected sepsis due to obstructive uropathy, given the findings of flank pain, hypotension, and obstructive renal stones. Discussed at length with the ICU resident. Would switch to meropenem to cover empirically for resistant gram-negatives, including ESBL organisms. She received a dose of vancomycin as well in the ER. Would discuss with urology further management, stent versus percutaneous nephrostomy. 2. History of hypokalemia. 3. History of asthma. over 45 minutes spent in the care of this critically ill ICU patient d/w ICU housestaff Williams CHRISTIANSEN/[id number] MTDD
[2019-02-28 15:41] LABS: HEMATOCRIT 33.4 % (32.4-45.2); HEMOGLOBIN 10.8 GM/dL (10.7-15.3); MCH 27.9 pg (25.7-33.7); MCHC 32.3 g/dl (32.0-36.0); MEAN CELL VOLUME 86.1 fl (80-96); MEAN PLT VOLUME 7.9 fl (7.5-11.1); PLATELET COUNT 98 K/MM3 (134-434); RBC 3.87 M/mm3 (3.60-5.2); RDW 14.3 % (11.6-15.6); WHITE BLOOD COUNT 16.9 K/mm3 (4.0-10.0)
[2019-02-28] MEDS: HYDROCORTISONE SOD SUCCINATE 100 MG/2 ML VIAL IVPUSH SCH ×2 (15:42→20:08)
[2019-02-28 15:43] LABS: INR 1.23 (0.83-1.09); PROTHROMBIN TIME (PATIENT) 14.5 SEC (9.7-13.0)
[2019-02-28] MEDS: MEROPENEM 1 GM in DEXTROSE 5%-WATER 100 ML IVPB SCH ×2 (15:46→18:00)
[2019-02-28 16:26] LABS: ALBUMIN 2.7 g/dl (3.4-5.0); BILIRUBIN,TOTAL 0.5 mg/dL (0.2-1); BLOOD UREA NITROGEN 22.5 mg/dL (7-18); CREATININE 1.7 mg/dL (0.55-1.3); MAGNESIUM 1.8 mg/dL (1.8-2.4); PHOSPHOROUS 2.7 mg/dL (2.5-4.9); POTASSIUM 3.4 mmol/L (3.5-5.1)
[2019-02-28 16:30] LABS: CALCIUM 6.9 mg/dL (8.5-10.1)
[2019-02-28] MEDS ORDERED: NOREPINEPHRINE BITARTRATE 8,000 MCG in DEXTROSE 5%-WATER - 492 ML IV SCH (16:30)
[2019-02-28] MEDS: ALBUTEROL SO4 0.083% IH SOL 2.5 MG/3 ML VIAL.NEB. NEB PRN ×2 (16:40→23:33)
[2019-02-28] MEDS ORDERED: POTASSIUM CHLORIDE TABS 20 MEQ TABLET.ER (FP) PO ONE (18:39)
--- NOTE | 2019-02-28 19:50 | PN ---
Progress Note (short form) - Note Progress Note: SUBJECTIVE: Complains of Left flank pain, nausea, vomiting since 02/27 with fever. No dysuria/hematuria. OBJECTIVE: Fever 102.9. Hypotensive requiring Levophed. Last Vital Signs Temp Pulse Resp BP Pulse Ox 98.7 F 112 H 20 114/62 97 02/28/19 10:20 02/28/19 19:09 02/28/19 13:40 02/28/19 17:06 02/28/19 19:09 HEENT- Atraumatic, Normocephalic Heart - S1, S2, RRR Lungs - clear to auscultation Abdomen - soft, Left flank tednerness++. Bowel Sounds normal. Neuro - AAO x 3. Tone/Power normal all 4 extremities. Extremities - mild edema, no calf tenderness. Laboratory Results - last 24 hr 02/28/19 02/28/19 02/28/19 02:08 02:08 02:08 WBC 4.2 RBC 4.44 Hgb 12.7 Hct 37.8 MCV 85.2 MCH 28.6 MCHC 33.5 RDW 14.3 Plt Count 146 D MPV 7.7 Absolute Neuts (auto) 3.9 Neutrophils % 91.5 H D Neutrophils % (Manual) 49.5 Band Neutrophils % 38.4 Lymphocytes % 7.4 L D Lymphocytes % (Manual) 8.1 Monocytes % 0.6 L D Monocytes % (Manual) 0 L Eosinophils % 0.3 Eosinophils % (Manual) 0.0 Basophils % 0.2 Basophils % (Manual) 0.0 Myelocytes % (Man) 3 H Promyelocytes % (Man) 0 Blast Cells % (Manual) 0 Nucleated RBC % 0 Metamyelocytes 1 Hypochromia 0 Toxic Granulation 0 Dohle Bodies 0 Platelet Estimate Normal Polychromasia 0 Poikilocytosis 0 Basophilic Stippling 0 Anisocytosis 0 Microcytosis 0 Macrocytosis 0 Spherocytes 0 Sickle Cells 0 Target Cells 0 Tear Drop Cells 0 Ovalocytes 0 Stomatocytes 0 Helmet Cells 0 [place] Bodies 0 [place] Rings 0 [place]ora Cells 0 Acanthocytes (Spur) 0 Rouleaux 0 Fragmented RBCs 0 Schistocytes 0 Retic Count PT with INR INR Sodium 141 Potassium 3.4 L Chloride 108 H Carbon Dioxide 20 L Anion Gap 13 BUN 23.0 H Creatinine 1.3 Est GFR (CKD-EPI)AfAm 53.48 Est GFR (CKD-EPI)NonAf 46.15 Random Glucose 112 H Lactic Acid 4.8 H* Calcium 8.4 L Phosphorus Magnesium Iron TIBC Iron Saturation Unsaturated IBC Ferritin Total Bilirubin 0.3 AST 27 ALT 20 Alkaline Phosphatase 95 Creatine Kinase Creatine Kinase Index CK-MB (CK-2) Troponin I Total Protein 6.6 Albumin 3.8 Lipase TSH 1.14 Urine Color Urine Appearance Urine pH Ur Specific Alexander Urine Protein Urine Glucose (UA) Urine Ketones Urine Blood Urine Nitrite Urine Bilirubin Urine Urobilinogen Ur Leukocyte Esterase Urine WBC (Auto) Urine RBC (Auto) Urine Casts (Auto) U Epithel Cells (Auto) Urine Bacteria (Auto) Blood Type Antibody Screen 02/28/19 02/28/19 02/28/19 02:08 02:08 03:50 WBC RBC Hgb Hct MCV MCH MCHC RDW Plt Count MPV Absolute Neuts (auto) Neutrophils % Neutrophils % (Manual) Band Neutrophils % Lymphocytes % Lymphocytes % (Manual) Monocytes % Monocytes % (Manual) Eosinophils % Eosinophils % (Manual) Basophils % Basophils % (Manual) Myelocytes % (Man) Promyelocytes % (Man) Blast Cells % (Manual) Nucleated RBC % Metamyelocytes Hypochromia Toxic Granulation Dohle Bodies Platelet Estimate Polychromasia Poikilocytosis Basophilic Stippling Anisocytosis Microcytosis Macrocytosis Spherocytes Sickle Cells Target Cells Tear Drop Cells Ovalocytes Stomatocytes Helmet Cells [place] Bodies [place] Rings Colora Cells Acanthocytes (Spur) Rouleaux Fragmented RBCs Schistocytes Retic Count PT with INR INR Sodium Potassium Chloride Carbon Dioxide Anion Gap BUN Creatinine Est GFR (CKD-EPI)AfAm Est GFR (CKD-EPI)NonAf Random Glucose Lactic Acid 4.2 H* Calcium Phosphorus Magnesium Iron TIBC Iron Saturation Unsaturated IBC Ferritin Total Bilirubin AST ALT Alkaline Phosphatase Creatine Kinase 136 Creatine Kinase Index CK-MB (CK-2) Troponin I < 0.02 Total Protein Albumin Lipase TSH Urine Color Yellow Urine Appearance Clear Urine pH 5.0 D Ur Specific Alexander 1.008 L Urine Protein Negative Urine Glucose (UA) Negative Urine Ketones Negative Urine Blood Trace Urine Nitrite Negative Urine Bilirubin Negative Urine Urobilinogen 0.2 Ur Leukocyte Esterase Negative Urine WBC (Auto) 1 Urine RBC (Auto) 1 Urine Casts (Auto) 0 U Epithel Cells (Auto) 1.5 Urine Bacteria (Auto) 54.1 Blood Type Antibody Screen 02/28/19 02/28/19 02/28/19 03:50 03:50 07:25 WBC RBC Hgb Hct MCV MCH MCHC RDW Plt Count MPV Absolute Neuts (auto) Neutrophils % Neutrophils % (Manual) Band Neutrophils % Lymphocytes % Lymphocytes % (Manual) Monocytes % Monocytes % (Manual) Eosinophils % Eosinophils % (Manual) Basophils % Basophils % (Manual) Myelocytes % (Man) Promyelocytes % (Man) Blast Cells % (Manual) Nucleated RBC % Metamyelocytes Hypochromia Toxic Granulation Dohle Bodies Platelet Estimate Polychromasia Poikilocytosis Basophilic Stippling Anisocytosis Microcytosis Macrocytosis Spherocytes Sickle Cells Target Cells Tear Drop Cells Ovalocytes Stomatocytes Helmet Cells [place] Bodies [place] Rings Deangelo Cells Acanthocytes (Spur) Rouleaux Fragmented RBCs Schistocytes Retic Count PT with INR INR Sodium 143 Potassium 3.2 L Chloride 109 H Carbon Dioxide 21 Anion Gap 13 BUN 21.7 H Creatinine 1.4 H Est GFR (CKD-EPI)AfAm 48.90 Est GFR (CKD-EPI)NonAf 42.19 Random Glucose 133 H Lactic Acid Calcium 8.1 L Phosphorus Magnesium 1.9 Iron TIBC Iron Saturation Unsaturated IBC Ferritin Total Bilirubin 0.3 AST 24 ALT 18 Alkaline Phosphatase 78 Creatine Kinase Creatine Kinase Index CK-MB (CK-2) Troponin I Total Protein 5.8 L Albumin 3.4 Lipase 282 Cancelled TSH Urine Color Urine Appearance Urine pH Ur Specific Alexander Urine Protein Urine Glucose (UA) Urine Ketones Urine Blood Urine Nitrite Urine Bilirubin Urine Urobilinogen Ur Leukocyte Esterase Urine WBC (Auto) Urine RBC (Auto) Urine Casts (Auto) U Epithel Cells (Auto) Urine Bacteria (Auto) Blood Type Antibody Screen 02/28/19 02/28/19 02/28/19 07:25 07:25 15:15 WBC 4.4 16.9 H RBC 3.74 3.87 Hgb 10.6 L 10.8 Hct 32.1 L D 33.4 MCV 85.7 86.1 MCH 28.4 27.9 MCHC 33.2 32.3 RDW 14.4 14.3 Plt Count 80 L D 98 L D MPV 7.4 L 7.9 Absolute Neuts (auto) 4.0 Neutrophils % 90.6 H Neutrophils % (Manual) Band Neutrophils % Lymphocytes % 8.1 Lymphocytes % (Manual) Monocytes % 1.0 L Monocytes % (Manual) Eosinophils % 0.1 Eosinophils % (Manual) Basophils % 0.2 Basophils % (Manual) Myelocytes % (Man) Promyelocytes % (Man) Blast Cells % (Manual) Nucleated RBC % 0 Metamyelocytes Hypochromia Toxic Granulation Dohle Bodies Platelet Estimate Polychromasia Poikilocytosis Basophilic Stippling Anisocytosis Microcytosis Macrocytosis Spherocytes Sickle Cells Target Cells Tear Drop Cells Ovalocytes Stomatocytes Helmet Cells [place] Bodies [place] Rings Deangelo Cells Acanthocytes (Spur) Rouleaux Fragmented RBCs Schistocytes Retic Count PT with INR INR Sodium Potassium Chloride Carbon Dioxide Anion Gap BUN Creatinine Est GFR (CKD-EPI)AfAm Est GFR (CKD-EPI)NonAf Random Glucose Lactic Acid 3.7 H* Calcium Phosphorus Magnesium Iron TIBC Iron Saturation Unsaturated IBC Ferritin Total Bilirubin AST ALT Alkaline Phosphatase Creatine Kinase Creatine Kinase Index CK-MB (CK-2) Troponin I Total Protein Albumin Lipase TSH Urine Color Urine Appearance Urine pH Ur Specific Alexander Urine Protein Urine Glucose (UA) Urine Ketones Urine Blood Urine Nitrite Urine Bilirubin Urine Urobilinogen Ur Leukocyte Esterase Urine WBC (Auto) Urine RBC (Auto) Urine Casts (Auto) U Epithel Cells (Auto) Urine Bacteria (Auto) Blood Type Antibody Screen 02/28/19 02/28/19 02/28/19 15:15 15:15 15:15 WBC RBC Hgb Hct MCV MCH MCHC RDW Plt Count MPV Absolute Neuts (auto) Neutrophils % Neutrophils % (Manual) Band Neutrophils % Lymphocytes % Lymphocytes % (Manual) Monocytes % Monocytes % (Manual) Eosinophils % Eosinophils % (Manual) Basophils % Basophils % (Manual) Myelocytes % (Man) Promyelocytes % (Man) Blast Cells % (Manual) Nucleated RBC % Metamyelocytes Hypochromia Toxic Granulation Dohle Bodies Platelet Estimate Polychromasia Poikilocytosis Basophilic Stippling Anisocytosis Microcytosis Macrocytosis Spherocytes Sickle Cells Target Cells Tear Drop Cells Ovalocytes Stomatocytes Helmet Cells [place] Bodies [place] Rings Deangelo Cells Acanthocytes (Spur) Rouleaux Fragmented RBCs Schistocytes Retic Count PT with INR 14.50 H INR 1.23 H Sodium 139 Potassium 3.4 L Chloride 109 H Carbon Dioxide 18 L Anion Gap 12 BUN 22.5 H Creatinine 1.7 H Est GFR (CKD-EPI)AfAm 38.67 Est GFR (CKD-EPI)NonAf 33.36 Random Glucose 126 H Lactic Acid Calcium 6.9 L* Phosphorus 2.7 Magnesium 1.8 Iron 10 L TIBC 260 Iron Saturation 3 L Unsaturated IBC 250 Ferritin 189.2 Total Bilirubin 0.5 AST 42 H ALT 29 Alkaline Phosphatase 51 Creatine Kinase 784 H Creatine Kinase Index 0.3 CK-MB (CK-2) 2.9 Troponin I 0.09 H Total Protein 5.0 L Albumin 2.7 L Lipase TSH Urine Color Urine Appearance Urine pH Ur Specific Alexander Urine Protein Urine Glucose (UA) Urine Ketones Urine Blood Urine Nitrite Urine Bilirubin Urine Urobilinogen Ur Leukocyte Esterase Urine WBC (Auto) Urine RBC (Auto) Urine Casts (Auto) U Epithel Cells (Auto) Urine Bacteria (Auto) Blood Type A POSITIVE Antibody Screen Negative 02/28/19 02/28/19 15:15 15:52 WBC RBC Hgb Hct MCV MCH MCHC RDW Plt Count MPV Absolute Neuts (auto) Neutrophils % Neutrophils % (Manual) Band Neutrophils % Lymphocytes % Lymphocytes % (Manual) Monocytes % Monocytes % (Manual) Eosinophils % Eosinophils % (Manual) Basophils % Basophils % (Manual) Myelocytes % (Man) Promyelocytes % (Man) Blast Cells % (Manual) Nucleated RBC % Metamyelocytes Hypochromia Toxic Granulation Dohle Bodies Platelet Estimate Polychromasia Poikilocytosis Basophilic Stippling Anisocytosis Microcytosis Macrocytosis Spherocytes Sickle Cells Target Cells Tear Drop Cells Ovalocytes Stomatocytes Helmet Cells [place] Bodies [place] Rings Deangelo Cells Acanthocytes (Spur) Rouleaux Fragmented RBCs Schistocytes Retic Count 1.75 H PT with INR INR Sodium Potassium Chloride Carbon Dioxide Anion Gap BUN Creatinine Est GFR (CKD-EPI)AfAm Est GFR (CKD-EPI)NonAf Random Glucose Lactic Acid 4.5 H* Calcium Phosphorus Magnesium Iron TIBC Iron Saturation Unsaturated IBC Ferritin Total Bilirubin AST ALT Alkaline Phosphatase Creatine Kinase Creatine Kinase Index CK-MB (CK-2) Troponin I Total Protein Albumin Lipase TSH Urine Color Urine Appearance Urine pH Ur Specific Alexander Urine Protein Urine Glucose (UA) Urine Ketones Urine Blood Urine Nitrite Urine Bilirubin Urine Urobilinogen Ur Leukocyte Esterase Urine WBC (Auto) Urine RBC (Auto) Urine Casts (Auto) U Epithel Cells (Auto) Urine Bacteria (Auto) Blood Type Antibody Screen Current Medications Generic Name Dose Route Start Last Admin Trade Name Freq PRN Reason Stop Dose Admin Acetaminophen 1,000 mg 02/28/19 06:14 02/28/19 18:00 Ofirmev Injection - IVPB 1,000 mg Q6H PRN Administration PAIN OR FEVER Albuterol Sulfate 1 amp 02/28/19 06:13 02/28/19 16:40 Ventolin 0.083% Nebulizer Soln - NEB 1 amp QID PRN Administration WHEEZING Hydrocortisone Sodium Succinate 50 mg 02/28/19 15:15 02/28/19 15:42 Solu-Cortef - IVPUSH 50 mg Q6H-IV IBETH Administration Sodium Chloride 1,000 mls @ 100 mls/hr 02/28/19 06:45 02/28/19 06:58 1/2 Normal Saline IV 100 mls/hr ASDIR IBETH Administration Meropenem 1 gm/ Dextrose 100 mls @ 200 mls/hr 02/28/19 14:00 02/28/19 18:00 IVPB Not Given Q8H-IV IBETH Norepinephrine Bitartrate 8, 500 mls @ 8.67 mls/hr 02/28/19 16:30 02/28/19 17 :06 000 mcg/ Dextrose IV 0.03 mcg/kg/min ASDIR IBETH 8.67 mls/hr Administration Protocol 0.03 MCG/KG/MIN Morphine Sulfate 2 mg 02/28/19 06:07 Morphine Sulfate IVPUSH Q4H PRN PAIN LEVEL 7 - 10 Non-Formulary Medication 300 mg 02/28/19 10:00 Ranitidine Hcl [Zantac] PO BID IBETH Ondansetron HCl 4 mg 02/28/19 06:16 02/28/19 09:52 Zofran Injection IVPUSH 4 mg Q6H PRN Administration NAUSEA AND/OR VOMITING Potassium Chloride 20 meq 02/28/19 10:00 02/28/19 09:37 K-Dur - PO 20 meq DAILY IBETH Administration Tamsulosin HCl 0.4 mg 02/28/19 08:30 02/28/19 08:37 Flomax - PO 0.4 mg DAILY@0830 IBETH Administration Home Medications Medication Instructions Recorded Potassium Chloride [K-Tab ER] 20 meq PO DAILY 02/05/16 Diphenhydramine HCl [Benadryl -] 25 mg PO Q6H 06/06/17 Albuterol 0.083% Nebulizer Maddie 1 neb NEB QID PRN 02/28/19 [Ventolin 0.083%] Albuterol Sulfate Inhaler - 1 - 2 inh PO QID PRN 02/28/19 [Ventolin Hfa Inhaler -] Ranitidine HCl [Zantac] 300 mg PO BID 02/28/19 ASSESSMENT/PLAN: 53 year old female with history of Asthma, presented to ED with abdominal pain, mostly R sided with reported nausea/vomiting. 1. 1. Septic Shock secondary to Acute Pyelonephritis due to urinary obstruction by 7mm prox UPJ stone Febrile, hypotrensive, Tachycardic, requiring Levophed and stress dose steroids Fever - Tmax 102.9 CT A/P - L Hydronephrosis 8mm proximal UPJ stone with mild to moderate hydronephrosis. R non-obstructing lower pole calculus Admit ICU Meropenem Urine Cx pending Urology consulted - for IR guided Nephrostomy Continue Fluid and pressor support. Stress dose steroids. Trend lactate. 2. VICKI sec to obstructive uropathy versus ATN due to hypotension - monitor renal function on adequate hydration and pressor support 3. Thrombocytopenia, likely myelosuppressive due to sepsis +/- consumptive due to elevated temperature - will monitor. 4. Asthma- no evidence of acute exacerbation - Albuterol PRN 5. Hypokalemia - will replete. 6. Iron deficiency Anemia - does not appear acute. Iron Sat 3. Will need to obtain Colonoscopy hx and refer to GI as out-patient. DVT Px - SCDs due to Thrombocytopenia. GI PX - Ranitidine Visit type - Emergency Visit Emergency Visit: Yes ED Registration Date: 02/28/19 Care time: The patient presented to the Emergency Department on the above date and was hospitalized for further evaluation of their emergent condition. - New Patient This patient is new to me today: Yes Date on this admission: 03/01/19 - Critical Care Critical Care patient: Yes Total Critical Care Time (in minutes): 45 Critical Care Statement: The care of this patient involved high complexity decision making to prevent further life threatening deterioration of the patient 's condition and/or to evaluate & treat vital organ system(s) failure or risk of failure. - Discharge Referral Referred to [facility] No
[2019-02-28 19:53] VITALS: BMI 36.3
[2019-03-01] MEDS ORDERED: DEXTROSE 5%-WATER 100 ML IVPB ONE ×4 (00:02→17:10)
[2019-03-01] MEDS ORDERED: MEROPENEM 1 GM VIAL (RESTRICTED TO ID) IVPB ONE ×4 (00:02→17:10)
[2019-03-01] MEDS: MEROPENEM 1 GM in DEXTROSE 5%-WATER 100 ML IVPB SCH ×3 (01:43→17:28)
[2019-03-01] MEDS: HYDROCORTISONE SOD SUCCINATE 100 MG/2 ML VIAL IVPUSH SCH ×3 (03:00→21:44)
[2019-03-01] MEDS: ACETAMINOPHEN 1000 MG/100 ML VIAL (NON FORMULARY) IVPB PRN (05:54)
--- NOTE | 2019-03-01 06:05 | PN ---
Progress Note (short form) - Note Progress Note: Called by nurse early in the evening that patient accidentally pulled out her femoral central venous catheter. She was actively running levophed 12mcgs/hr through the catheter with MAPs in the 70s. Did not re-insert central line - opted to observe the patient given that her blood pressure continued to remain stable throughout the night. Currently her pressure is 121/78 with a MAP 88 off pressors. Lactic acid normalized. Troponin peaked. Overall improvement in respiratory status. Currently reports mild SOB but otherwise asymptomatic. Will continue to monitor nephrostomy output. Restart diet, DC IVF Follow urology recommendations for further mechanical management of obstructing stone Continue treatment with antibiotics Follow blood/urine cultures
[2019-03-01 06:37] LABS: BASO % 0.2 % (0-2.0); EOS % 0.2 % (0-4.5); HEMATOCRIT 33.1 % (32.4-45.2); LYMPH % 2.7 % (8-40); MCH 28.3 pg (25.7-33.7); MCHC 33.1 g/dl (32.0-36.0); MEAN CELL VOLUME 85.5 fl (80-96); MEAN PLT VOLUME 8.6 fl (7.5-11.1); MONO % 2.3 % (3.8-10.2); NEUT % 94.6 % (42.8-82.8); PLATELET COUNT 73 K/MM3 (134-434); RBC 3.87 M/mm3 (3.60-5.2); RDW 14.5 % (11.6-15.6); WHITE BLOOD COUNT 20.4 K/mm3 (4.0-10.0)
--- NOTE | 2019-03-01 06:45 | EKG ---
Test Reason : Blood Pressure : / mmHG Vent. Rate : 109 BPM Atrial Rate : 109 BPM P-R Int : 140 ms QRS Dur : 086 ms QT Int : 352 ms P-R-T Axes : 047 039 039 degrees QTc Int : 474 ms SINUS TACHYCARDIA OTHERWISE NORMAL ECG WHEN COMPARED WITH ECG OF 28-FEB-2019 07:32, NON-SPECIFIC CHANGE IN ST SEGMENT IN ANTERIOR LEADS NONSPECIFIC T WAVE ABNORMALITY NO LONGER EVIDENT IN ANTERIOR LEADS Confirmed by CLAUDY PEREZ, GONZALO ([id number]) on 03/01/2019 6:44:43 AM Referred By: Jessica RODRIGUEZ Confirmed By:GONZALO LOCO MD
[2019-03-01 06:48] LABS: BILIRUBIN,TOTAL 0.4 mg/dL (0.2-1); BLOOD UREA NITROGEN 22.5 mg/dL (7-18); CALCIUM 7.9 mg/dL (8.5-10.1); CREATININE 1.2 mg/dL (0.55-1.3); MAGNESIUM 2.1 mg/dL (1.8-2.4); PHOSPHOROUS 3.8 mg/dL (2.5-4.9); POTASSIUM 4.4 mmol/L (3.5-5.1); TOT PROT 5.7 g/dl (6.4-8.2)
[2019-03-01] MEDS: ALBUTEROL SO4 0.083% IH SOL 2.5 MG/3 ML VIAL.NEB. NEB PRN (07:30)
[2019-03-01] MEDS ORDERED: MORPHINE SULFATE 2 MG/ML VIAL IVPUSH PRN (07:43)
--- NOTE | 2019-03-01 08:18 | PN ---
Physical Exam: SUBJECTIVE: Overnight events noted with pt's femoral TLC becoming dislodged. Pt has been off of pressors since overnight with BP normalized (MAP 75's). Pt today feels markedly improved. Pt reports being hungry today. She also endorses some shortness of breath, but she reports it has improved compared to yesterday. OBJECTIVE: Vital Signs Period Temp Pulse Resp BP Sys/Gifford Pulse Ox Last 24 Hr 98.6 F-100.2 F 104-120 19-28 63-139/44-94 97-100 GENERAL: NAD, awake, alert, and fully oriented, in no acute distress. HEENT: NC/AT, EOMI, MARCELINO, sclera anicteric, MMM NECK: No JVD LUNGS: Rales noted at the bases bilaterally, no wheezes, no crackles, no accessory muscle use. HEART: Tachycardic (108) with regular rhythm, S1, S2 without murmur ABDOMEN: Soft, Nt/ND, normoactive bowel sounds, no guarding, posterior R nephrostomy tube noted with clear-yellow urine (~30-50cc) currently EXTREMITIES: 2+ DP pulses, warm, well-perfused, no edema. PSYCH: Normal mood, normal affect. SKIN: Warm, dry, no rashes or lesions noted, previous R femoral TLC site without any bleeding C/D/I Laboratory Results - last 24 hr 02/28/19 02/28/19 02/28/19 07:25 15:15 15:15 WBC 16.9 H RBC 3.87 Hgb 10.8 Hct 33.4 MCV 86.1 MCH 27.9 MCHC 32.3 RDW 14.3 Plt Count 98 L D MPV 7.9 Absolute Neuts (auto) Neutrophils % Lymphocytes % Monocytes % Eosinophils % Basophils % Nucleated RBC % Retic Count PT with INR INR Sodium 139 Potassium 3.4 L Chloride 109 H Carbon Dioxide 18 L Anion Gap 12 BUN 22.5 H Creatinine 1.7 H Est GFR (CKD-EPI)AfAm 38.67 Est GFR (CKD-EPI)NonAf 33.36 Random Glucose 126 H Lactic Acid 3.7 H* Calcium 6.9 L* Phosphorus 2.7 Magnesium 1.8 Iron 10 L TIBC 260 Iron Saturation 3 L Unsaturated IBC 250 Ferritin 189.2 Total Bilirubin 0.5 AST 42 H ALT 29 Alkaline Phosphatase 51 Creatine Kinase 784 H Creatine Kinase Index 0.3 CK-MB (CK-2) 2.9 Troponin I 0.09 H Total Protein 5.0 L Albumin 2.7 L Blood Type Antibody Screen 02/28/19 02/28/19 02/28/19 15:15 15:15 15:15 WBC RBC Hgb Hct MCV MCH MCHC RDW Plt Count MPV Absolute Neuts (auto) Neutrophils % Lymphocytes % Monocytes % Eosinophils % Basophils % Nucleated RBC % Retic Count 1.75 H PT with INR 14.50 H INR 1.23 H Sodium Potassium Chloride Carbon Dioxide Anion Gap BUN Creatinine Est GFR (CKD-EPI)AfAm Est GFR (CKD-EPI)NonAf Random Glucose Lactic Acid Calcium Phosphorus Magnesium Iron TIBC Iron Saturation Unsaturated IBC Ferritin Total Bilirubin AST ALT Alkaline Phosphatase Creatine Kinase Creatine Kinase Index CK-MB (CK-2) Troponin I Total Protein Albumin Blood Type A POSITIVE Antibody Screen Negative 02/28/19 02/28/19 02/28/19 15:52 21:25 21:25 WBC RBC Hgb Hct MCV MCH MCHC RDW Plt Count MPV Absolute Neuts (auto) Neutrophils % Lymphocytes % Monocytes % Eosinophils % Basophils % Nucleated RBC % Retic Count PT with INR INR Sodium Potassium Chloride Carbon Dioxide Anion Gap BUN Creatinine Est GFR (CKD-EPI)AfAm Est GFR (CKD-EPI)NonAf Random Glucose Lactic Acid 4.5 H* 3.1 H* Calcium Phosphorus Magnesium Iron TIBC Iron Saturation Unsaturated IBC Ferritin Total Bilirubin AST ALT Alkaline Phosphatase Creatine Kinase 968 H Creatine Kinase Index 0.3 CK-MB (CK-2) 3.3 Troponin I 0.18 H Total Protein Albumin Blood Type Antibody Screen 03/01/19 03/01/19 03/01/19 02:40 02:40 05:35 WBC 20.4 H RBC 3.87 Hgb 11.0 Hct 33.1 MCV 85.5 MCH 28.3 MCHC 33.1 RDW 14.5 Plt Count 73 L D MPV 8.6 Absolute Neuts (auto) 19.3 H Neutrophils % 94.6 H Lymphocytes % 2.7 L D Monocytes % 2.3 L D Eosinophils % 0.2 D Basophils % 0.2 Nucleated RBC % 0 Retic Count PT with INR INR Sodium Potassium Chloride Carbon Dioxide Anion Gap BUN Creatinine Est GFR (CKD-EPI)AfAm Est GFR (CKD-EPI)NonAf Random Glucose Lactic Acid 1.8 Calcium Phosphorus Magnesium Iron TIBC Iron Saturation Unsaturated IBC Ferritin Total Bilirubin AST ALT Alkaline Phosphatase Creatine Kinase Creatine Kinase Index CK-MB (CK-2) Troponin I 0.18 H Total Protein Albumin Blood Type Antibody Screen 03/01/19 05:35 WBC RBC Hgb Hct MCV MCH MCHC RDW Plt Count MPV Absolute Neuts (auto) Neutrophils % Lymphocytes % Monocytes % Eosinophils % Basophils % Nucleated RBC % Retic Count PT with INR INR Sodium 142 Potassium 4.4 Chloride 111 H Carbon Dioxide 23 Anion Gap 8 BUN 22.5 H Creatinine 1.2 Est GFR (CKD-EPI)AfAm 58.92 Est GFR (CKD-EPI)NonAf 50.84 Random Glucose 158 H Lactic Acid Calcium 7.9 L Phosphorus 3.8 Magnesium 2.1 Iron TIBC Iron Saturation Unsaturated IBC Ferritin Total Bilirubin 0.4 AST 39 H ALT 31 Alkaline Phosphatase 54 Creatine Kinase Creatine Kinase Index CK-MB (CK-2) Troponin I Total Protein 5.7 L Albumin 3.0 L Blood Type Antibody Screen Active Medications Generic Name Dose Route Start Last Admin Trade Name Freq PRN Reason Stop Dose Admin Albuterol Sulfate 1 amp 02/28/19 06:13 02/28/19 23:33 Ventolin 0.083% Nebulizer Soln - NEB 1 amp QID PRN Administration WHEEZING Hydrocortisone Sodium Succinate 50 mg 02/28/19 15:15 03/01/19 03:00 Solu-Cortef - IVPUSH 50 mg Q6H-IV IBETH Administration Meropenem 1 gm/ Dextrose 100 mls @ 200 mls/hr 02/28/19 14:00 03/01/19 01:43 IVPB 200 mls/hr Q8H-IV IBETH Administration Morphine Sulfate 2 mg 03/01/19 07:43 Morphine Sulfate IVPUSH Q6H PRN PAIN LEVEL 7 - 10 Non-Formulary Medication 300 mg 02/28/19 10:00 Ranitidine Hcl [Zantac] PO BID IBETH Ondansetron HCl 4 mg 02/28/19 06:16 02/28/19 09:52 Zofran Injection IVPUSH 4 mg Q6H PRN Administration NAUSEA AND/OR VOMITING Potassium Chloride 20 meq 02/28/19 10:00 02/28/19 09:37 K-Dur - PO 20 meq DAILY IBETH Administration Ranitidine HCl 150 mg 03/01/19 10:00 Zantac - PO DAILY [facility] Tamsulosin HCl 0.4 mg 02/28/19 08:30 02/28/19 08:37 Flomax - PO 0.4 mg DAILY@0830 IBETH Administration ASSESSMENT/PLAN: Septic Shock 2/2 to pyelonephritis Suspected adrenal insufficiency Thrombocytopenia Leukocytosis Acute kidney injury Asthma, not in exacerbation Hypokalemia (chronic; improved) Lactic acidosis (resolved) --Pt off pressors currently maintaining MAPs --Will decrease Cortef to 50mg BID IVP while off pressors --Pt currently has draining nephrostomy tube; urology on board --Monitor fever trend and leukocytosis --Continue Meropenem 1gm q8h (day 2) --Blood and urine cultures with Lactose fermenting gram negative bacilli (will await sensitivities) --Rest of ABX mgmt per ID --Cr improved today (1.2) with normalizing BP and improved infection control --Avoid nephrotoxic agents currently --Monitor for continued downtrend (suspect prerenal azotemia) --Thrombocytopenia attributed to sepsis, however will monitor for continued decline; avoid AP/AC until trend --Echocardiogram previously ordered for assessment of LV function considering overload; will f/u today FEN: Fluids: PRN, encourage PO if needed Electrolyte abnormalities: Holding daily Kdur (K 4.4 today) Nutrition: Advanced as tolerated (no eggs or peanuts) PPX: DVT - SCDs only due to thrombocytopenia GI - Zantac 150mg qdaily Dispo: If pt remains hemodynamically stable can transfer to M/S Case discussed with Dr. Sanjay Harden, DO - IM PGY-3 Visit type - Emergency Visit Emergency Visit: Yes ED Registration Date: 02/28/19 Care time: The patient presented to the Emergency Department on the above date and was hospitalized for further evaluation of their emergent condition. - New Patient This patient is new to me today: Yes Date on this admission: 03/01/19 - Critical Care Critical Care patient: Yes Total Critical Care Time (in minutes): 35 Critical Care Statement: The care of this patient involved high complexity decision making to prevent further life threatening deterioration of the patient 's condition and/or to evaluate & treat vital organ system(s) failure or risk of failure. ATTENDING PHYSICIAN STATEMENT I saw and evaluated the patient. I reviewed the resident's note and discussed the case with the resident. I agree with the resident's findings and plan as documented. SUBJECTIVE: OBJECTIVE: ASSESSMENT AND PLAN:
--- NOTE | 2019-03-01 08:40 | CON.GU ---
Consult Consult Specialty:: Reason for Consultation:: L ureteral calculus - History of Present Illness Chief Complaint: L flank pain History of Present Illness: 53 year old female with past medical history of asthma, hypokalemia, presented to the ED due to severe diffuse abdominal pain and left flank pain that started a few hours prior to coming to the ED. Patient reported she was experiencing body aches, decreased appetite and subjective fevers all day yesterday, and last night experienced sudden onset severe 10/10 diffuse abdominal, worse on the LUQ/LLQ and left flank pain, accompanied by nausea and multiple episodes of NBNB vomiting. Patient took Ibuprofen which did not provide any relief. Due to persistence of the pain, patient called 911. Patient denies chest pain, shortness of breath, diarrhea, hematuria, dysuria. ER course was notable for: (1) Vanc and Zosyn x1 dose (2) CTAP: moderate left hydronephrosis due to a 7mm proximal UPJ stone with probable ruptured calyx. Additional bilateral small renal stones. Superimposed pyelonephritis cannot be excluded. (3) Recent Travel:denies PAST MEDICAL HISTORY: Asthma Hx of hypokalemia PAST SURGICAL HISTORY: Social History: Smoking:denies Alcohol:denies Drugs: denies Family History:noncontributory 53 year old female with past medical history of asthma, hypokalemia, presented to the ED due to severe diffuse abdominal pain and left flank pain that started a few hours prior to coming to the ED. Patient reported she was experiencing body aches, decreased appetite and subjective fevers all day yesterday, and last night experienced sudden onset severe 10/10 diffuse abdominal, worse on the LUQ/LLQ and left flank pain, accompanied by nausea and multiple episodes of NBNB vomiting. Patient took Ibuprofen which did not provide any relief. Due to persistence of the pain, patient called 911. Patient denies chest pain, shortness of breath, diarrhea, hematuria, dysuria. cons req. ER course was notable for: (1) Vanc and Zosyn x1 dose (2) CTAP: moderate left hydronephrosis due to a 7mm proximal UPJ stone with probable ruptured calyx. Additional bilateral small renal stones. Superimposed pyelonephritis cannot be excluded. (3) Recent Travel:denies PAST MEDICAL HISTORY: Asthma Hx of hypokalemia PAST SURGICAL HISTORY: Social History: Smoking:denies Alcohol:denies Drugs: denies Family History:noncontributory - Alcohol/Substance Use Hx Alcohol Use: No - Smoking History Smoking history: Never smoked Have you smoked in the past 12 months: No Aproximately how many cigarettes per day: 0 Home Medications - Allergies Allergies/Adverse Reactions: Allergies Allergy/AdvReac Type Severity Reaction Status Date / Time latex Allergy Mild Verified 02/28/19 00:52 lidocaine Allergy Verified 02/28/19 00:52 paprika Allergy Verified 02/28/19 00:52 peanut Allergy Difficulty Verified 02/28/19 00:52 Breathing procaine HCl [From Novocain] Allergy Verified 02/28/19 00:52 POLYURETHANE Allergy Intermediate Swelling Uncoded 02/28/19 00:52 shrimp Allergy Intermediate Hives Uncoded 02/28/19 00:52 - Home Medications Home Medications: Ambulatory Orders Potassium Chloride [K-Tab ER] 10 meq PO BID 02/05/16 Diphenhydramine HCl [Benadryl -] 25 mg PO Q6H 06/06/17 Albuterol 0.083% Nebulizer Maddie [Ventolin 0.083%] 1 neb NEB QID PRN 02/28/19 Albuterol Sulfate Inhaler - [Ventolin Hfa Inhaler -] 1 - 2 inh PO QID PRN Ranitidine HCl [Zantac] 300 mg PO BID 02/28/19 Physical Exam- Vital Signs: Vital Signs Temperature 100.2 F H 03/01/19 03:00 Pulse Rate 99 H 03/01/19 08:35 Respiratory Rate 21 H 03/01/19 08:00 Blood Pressure 104/61 03/01/19 08:00 O2 Sat by Pulse Oximetry (%) 100 03/01/19 08:35 Gastrointestinal: Yes: Soft Renal/: Yes: CVA Tenderness - Left (L nephrostomy in place) Labs: CBC, BMP 03/01/19 05:35 03/01/19 05:35 Imaging - Results Cat Scan: Report Reviewed, Image Reviewed Problem List - Problems (1) VICKI (acute kidney injury) Code(s): N17.9 - ACUTE KIDNEY FAILURE, UNSPECIFIED (2) Nephrolithiasis Code(s): N20.0 - CALCULUS OF KIDNEY (3) Obstructive uropathy Code(s): N13.9 - OBSTRUCTIVE AND REFLUX UROPATHY, UNSPECIFIED (4) Sepsis Code(s): A41.9 - SEPSIS, UNSPECIFIED ORGANISM (5) Ureteral calculus Assessment/Plan: L nephrostomy, ur cx, iv abxs, pressure/vent support, cystoscopy and L JJ stent insertion when stable Code(s): N20.1 - CALCULUS OF URETER
[2019-03-01] MEDS: TAMSULOSIN HCL 0.4 MG CAP PO SCH (08:44)
--- NOTE | 2019-03-01 09:17 | PN ---
Progress Note (short form) - Note Progress Note: s/p PCN last night still achy BP now normal Vital Signs Period Temp Pulse Resp BP Sys/Gifford Pulse Ox Last 24 Hr 98.6 F-100.2 F 96-120 19-28 72-139/44-94 97-100 cor-rrr lungs bibasilar crackles abd soft,nt ext trace pretibial edema +pcn with clear urine CBC, BMP 03/01/19 05:35 03/01/19 05:35 Microbiology 02/28/19 02:08 Urine - Urine Clean Catch Urine Culture - Preliminary Lactose Fermenting Neg Bacilli 02/28/19 02:08 Blood - Peripheral Venous Blood Culture - Preliminary Lactose Fermenting Neg Bacilli 02/28/19 02:05 Blood - Peripheral Venous Blood Culture - Preliminary Lactose Fermenting Neg Bacilli Current Medications Albuterol Sulfate (Ventolin 0.083% Nebulizer Soln -) 1 amp NEB QID PRN PRN Reason: WHEEZING Last Admin: 03/01/19 07:30 Dose: 1 amp Hydrocortisone Sodium Succinate (Solu-Cortef -) 50 mg IVPUSH BID [facility] Meropenem 1 gm/ Dextrose 100 mls @ 200 mls/hr IVPB Q8H-IV IBETH Last Admin: 03/01/19 01:43 Dose: 200 mls/hr Morphine Sulfate (Morphine Sulfate) 2 mg IVPUSH Q6H PRN PRN Reason: PAIN LEVEL 7 - 10 Ondansetron HCl (Zofran Injection) 4 mg IVPUSH Q6H PRN PRN Reason: NAUSEA AND/OR VOMITING Last Admin: 02/28/19 09:52 Dose: 4 mg Potassium Chloride (K-Dur -) 20 meq PO DAILY [facility] Last Admin: 02/28/19 09:37 Dose: 20 meq Ranitidine HCl (Zantac -) 150 mg PO DAILY [facility] Tamsulosin HCl (Flomax -) 0.4 mg PO DAILY@0830 [facility] Last Admin: 03/01/19 08:44 Dose: 0.4 mg a/p gram negative bacteremia secondary to obstructive uropathy s/p PCN last night now off pressors thrombocytopenia- most likely secondary to sepsis volume overload due to volume resuscitation- doubt pneumonia f/u cultures continue meropenem Problem List - Problems (1) Sepsis Code(s): A41.9 - SEPSIS, UNSPECIFIED ORGANISM (2) Obstructive uropathy Code(s): N13.9 - OBSTRUCTIVE AND REFLUX UROPATHY, UNSPECIFIED (3) Hypokalemia Code(s): E87.6 - HYPOKALEMIA
[2019-03-01] MEDS: RANITIDINE HCL 150 MG TABLET (FP) PO SCH (09:27)
[2019-03-01] MEDS: ACETAMINOPHEN 325 MG TABLET (FP) PO PRN (09:27)
[2019-03-01 09:35] LABS: ANISOCYTOSIS 0; MACROCYTOSIS 0; PLATELET ESTIMATE DECREASED
--- NOTE | 2019-03-01 11:40 | PN ---
Teaching Attending Note Name of Resident: Alexander Harden ATTENDING PHYSICIAN STATEMENT I saw and evaluated the patient. I reviewed the resident's note and discussed the case with the resident. I agree with the resident's findings and plan as documented. SUBJECTIVE: Pt seen and examined in the ICU. Off pressors. Blood and urine cultures growing gram negative rods. +nonproductive cough. OBJECTIVE: Vital Signs Period Temp Pulse Resp BP Sys/Gifford Pulse Ox Last 24 Hr 98.6 F-100.2 F 96-120 19-28 72-139/44-94 97-100 Intake & Output 02/26/19 02/27/19 02/28/19 03/01/19 23:59 23:59 23:59 23:59 Intake Total 1940 440 Output Total 280 600 Balance 1660 -160 Weight 93 kg Gen: mildly tachypneic at rest Heart: RRR Lung: scattered rhonchi Abd: soft, nontender Ext: no edema CBC, BMP 03/01/19 05:35 03/01/19 05:35 Active Medications Acetaminophen (Tylenol -) 650 mg PO Q6H PRN PRN Reason: Fever Or Pain Last Admin: 03/01/19 09:27 Dose: 650 mg Albuterol Sulfate (Ventolin 0.083% Nebulizer Soln -) 1 amp NEB QID PRN PRN Reason: WHEEZING Last Admin: 03/01/19 07:30 Dose: 1 amp Hydrocortisone Sodium Succinate (Solu-Cortef -) 50 mg IVPUSH BID [facility] Last Admin: 03/01/19 09:26 Dose: 50 mg Meropenem 1 gm/ Dextrose 100 mls @ 200 mls/hr IVPB Q8H-IV IBETH Last Admin: 03/01/19 10:18 Dose: 200 mls/hr Morphine Sulfate (Morphine Sulfate) 2 mg IVPUSH Q6H PRN PRN Reason: PAIN LEVEL 7 - 10 Ondansetron HCl (Zofran Injection) 4 mg IVPUSH Q6H PRN PRN Reason: NAUSEA AND/OR VOMITING Last Admin: 02/28/19 09:52 Dose: 4 mg Potassium Chloride (K-Dur -) 20 meq PO DAILY [facility] Last Admin: 02/28/19 09:37 Dose: 20 meq Ranitidine HCl (Zantac -) 150 mg PO DAILY [facility] Last Admin: 08/19/19 09:27 Dose: 150 mg Tamsulosin HCl (Flomax -) 0.4 mg PO DAILY@0830 [facility] Last Admin: 03/01/19 08:44 Dose: 0.4 mg ASSESSMENT AND PLAN: Left Pyelonephritis/Left Ureteral Stone s/p Left Nephrostomy tube placement Septic Shock Thrombocytopenia Acute Kidney Injury Lactic Acidosis +Troponins likely Demand Ischemia Asthma - continue antibiotics - f/u cultures - taper hydrocortisone - monitor urine output, creatinine - pain control - urology eval - monitor platelets - PO as tolerated - DVT prophylaxis - can monitor on floor critical care time spent in reviewing chart, evaluating patient and formulating plan 35 min
--- NOTE | 2019-03-01 13:55 | CONSULT ---
Consult Consult Specialty:: Nephrology Reason for Consultation:: VICKI - History of Present Illness Chief Complaint: abdominal pain History of Present Illness: Pt is a 53 year old female with pmhx of asthma, svt, and hypokalemia who presents to the ER with abdominal pain. She was found to have left hydro with a stone. She had a left nephrostomy tube placed. I was called to evaluate her for VICKI. Her renal function is improved today. She was also hypotensive and on pressors. She is awake and able to give history. She denies shortness of breath. She complains of diarrhea today. - History Source History Provided By: Patient, Medical Record - Past Medical History Cardio/Vascular: Yes: Other (svt) Pulmonary: Yes: Asthma Renal/: Yes: Other (hypokalemia) - Alcohol/Substance Use Hx Alcohol Use: No - Smoking History Smoking history: Never smoked Have you smoked in the past 12 months: No Aproximately how many cigarettes per day: 0 Home Medications - Allergies Allergies/Adverse Reactions: Allergies Allergy/AdvReac Type Severity Reaction Status Date / Time latex Allergy Mild Verified 02/28/19 00:52 lidocaine Allergy Verified 02/28/19 00:52 paprika Allergy Verified 02/28/19 00:52 peanut Allergy Difficulty Verified 02/28/19 00:52 Breathing procaine HCl [From Novocain] Allergy Verified 02/28/19 00:52 POLYURETHANE Allergy Intermediate Swelling Uncoded 02/28/19 00:52 shrimp Allergy Intermediate Hives Uncoded 02/28/19 00:52 - Home Medications Home Medications: Ambulatory Orders Potassium Chloride [K-Tab ER] 20 meq PO DAILY 02/05/16 Diphenhydramine HCl [Benadryl -] 25 mg PO Q6H 06/06/17 Albuterol 0.083% Nebulizer Maddie [Ventolin 0.083%] 1 neb NEB QID PRN 02/28/19 Albuterol Sulfate Inhaler - [Ventolin Hfa Inhaler -] 1 - 2 inh PO QID PRN Ranitidine HCl [Zantac] 300 mg PO BID 02/28/19 Family Disease History - Family Disease History Family History: Denies Review of Systems - Review of Systems Constitutional: reports: Malaise Eyes: reports: No Symptoms HENT: reports: No Symptoms Neck: reports: No Symptoms Cardiovascular: reports: No Symptoms Respiratory: reports: No Symptoms Gastrointestinal: reports: No Symptoms Genitourinary: reports: No Symptoms Musculoskeletal: reports: No Symptoms Integumentary: reports: No Symptoms Neurological: reports: No Symptoms Endocrine: reports: No Symptoms Hematology/Lymphatic: reports: No Symptoms Psychiatric: reports: No Symptoms Physical Exam Vital Signs: Vital Signs Temperature 98.1 F 03/01/19 10:00 Pulse Rate 101 H 03/01/19 12:00 Respiratory Rate 24 H 03/01/19 12:00 Blood Pressure 100/60 03/01/19 12:00 O2 Sat by Pulse Oximetry (%) 100 03/01/19 08:35 Constitutional: Yes: Calm Eyes: Yes: Conjunctiva Clear HENT: Yes: Atraumatic Neck: Yes: Supple Cardiovascular: Yes: S1, S2 Respiratory: Yes: CTA Bilaterally Gastrointestinal: Yes: Soft, Abdomen, Obese Renal/: Yes: Other (left nephrostomy) Musculoskeletal: Yes: WNL Edema: No Neurological: Yes: Oriented Psychiatric: Yes: Oriented Labs: CBC, BMP 03/01/19 05:35 03/01/19 05:35 Microbiology 02/28/19 02:08 Urine - Urine Clean Catch Urine Culture - Preliminary Lactose Fermenting Neg Bacilli 02/28/19 02:08 Blood - Peripheral Venous Blood Culture - Preliminary Lactose Fermenting Neg Bacilli 02/28/19 02:05 Blood - Peripheral Venous Blood Culture - Preliminary Lactose Fermenting Neg Bacilli Laboratory Tests 02/28/19 02/28/19 02/28/19 02:08 02:08 03:50 WBC Hgb BUN Creatinine 1.3 1.4 H Lactic Acid Urine Protein Negative Urine Blood Trace 02/28/19 02/28/19 02/28/19 15:15 15:15 15:52 WBC 16.9 H Hgb BUN Creatinine 1.7 H Lactic Acid 4.5 H* Urine Protein Urine Blood 02/28/19 03/01/19 03/01/19 21:25 02:40 05:35 WBC 20.4 H Hgb 11.0 BUN Creatinine Lactic Acid 3.1 H* 1.8 Urine Protein Urine Blood 03/01/19 05:35 WBC Hgb BUN 22.5 H Creatinine 1.2 Lactic Acid Urine Protein Urine Blood Imaging - Results Cat Scan: Report Reviewed Problem List - Problems (1) VICKI (acute kidney injury) Code(s): N17.9 - ACUTE KIDNEY FAILURE, UNSPECIFIED (2) Nephrolithiasis Code(s): N20.0 - CALCULUS OF KIDNEY (3) Sepsis Code(s): A41.9 - SEPSIS, UNSPECIFIED ORGANISM Assessment/Plan Current Medications Generic Name Dose Route Start Last Admin Trade Name Freq PRN Reason Stop Dose Admin Acetaminophen 650 mg 03/01/19 09:15 03/01/19 09:27 Tylenol - PO 650 mg Q6H PRN Administration Fever Or Pain Albuterol Sulfate 1 amp 02/28/19 06:13 03/01/19 07:30 Ventolin 0.083% Nebulizer Soln - NEB 1 amp QID PRN Administration WHEEZING Hydrocortisone Sodium Succinate 50 mg 03/01/19 10:00 03/01/19 09:26 Solu-Cortef - IVPUSH 50 mg BID IBETH Administration Meropenem 1 gm/ Dextrose 100 mls @ 200 mls/hr 02/28/19 14:00 03/01/19 10:18 IVPB 200 mls/hr Q8H-IV IBETH Administration Morphine Sulfate 2 mg 03/01/19 07:43 Morphine Sulfate IVPUSH Q6H PRN PAIN LEVEL 7 - 10 Ondansetron HCl 4 mg 02/28/19 06:16 02/28/19 09:52 Zofran Injection IVPUSH 4 mg Q6H PRN Administration NAUSEA AND/OR VOMITING Potassium Chloride 20 meq 02/28/19 10:00 02/28/19 09:37 K-Dur - PO 20 meq DAILY IBETH Administration Ranitidine HCl 150 mg 03/01/19 10:00 03/01/19 09:27 Zantac - PO 150 mg DAILY IB[facility] Administration Tamsulosin HCl 0.4 mg 02/28/19 08:30 03/01/19 08:44 Flomax - PO 0.4 mg DAILY@0830 IBETH Administration Impression 1. VICKI 2. lactic acidosis 3. left hydronephrosis 4. nephrolithiasis 5. bactermia 6. sepsis 7. hypotension 8. hypokalemia 9. hx svt 10. asthma Plan - renal function is improving - cont with fluids - maintain a map of 65 - hypotension and sepsis contributed to VICKI - avoid nsaids - cont abx - follow cultures - urology follow up Dr Alegria
--- NOTE | 2019-03-01 14:50 | PN ---
Physical Exam: SUBJECTIVE: Patient seen and examined at bedside. pt states she is feeling better. she states she has some pain around the nephrostomy site. she states she is trying to stay well hydrated so that she can fix her pressure naturally. OBJECTIVE: Vital Signs Period Temp Pulse Resp BP Sys/Gifford Pulse Ox Last 24 Hr 98.1 F-100.2 F 96-120 20-28 88-139/55-94 97-100 GENERAL: The patient is awake, alert, and fully oriented, in no acute distress. LUNGS: Breath sounds equal, b/l crackles at bases , no accessory muscle use. HEART: Regular rate and rhythm, S1, S2 without murmur, rub or gallop. ABDOMEN: Soft, nontender, nondistended, normoactive bowel sounds, no guarding. L nephrostomy tube EXTREMITIES: 2+ pulses, warm, well-perfused, no edema. SKIN: Warm, dry, normal turgor, no rashes or lesions noted Laboratory Last Values WBC 20.4 K/mm3 (4.0-10.0) H 03/01/19 05:35 RBC 3.87 M/mm3 (3.60-5.2) 03/01/19 05:35 Hgb 11.0 GM/dL (10.7-15.3) 03/01/19 05:35 Hct 33.1 % (32.4-45.2) 03/01/19 05:35 MCV 85.5 fl (80-96) 03/01/19 05:35 MCH 28.3 pg (25.7-33.7) 03/01/19 05:35 MCHC 33.1 g/dl (32.0-36.0) 03/01/19 05:35 RDW 14.5 % (11.6-15.6) 03/01/19 05:35 Plt Count 73 K/MM3 (134-434) L D 03/01/19 05:35 MPV 8.6 fl (7.5-11.1) 03/01/19 05:35 Absolute Neuts (auto) 19.3 K/mm3 (1.5-8.0) H 03/01/19 05:35 Neutrophils % 94.6 % (42.8-82.8) H 03/01/19 05:35 Neutrophils % (Manual) 57.0 % (42.8-82.8) 03/01/19 05:35 Band Neutrophils % 31.0 % 03/01/19 05:35 Lymphocytes % 2.7 % (8-40) L D 03/01/19 05:35 Lymphocytes % (Manual) 2.0 % (8-40) L D 03/01/19 05:35 Monocytes % 2.3 % (3.8-10.2) L D 03/01/19 05:35 Monocytes % (Manual) 0 % (3.8-10.2) L 03/01/19 05:35 Eosinophils % 0.2 % (0-4.5) D 03/01/19 05:35 Eosinophils % (Manual) 0.0 % (0-4.5) 03/01/19 05:35 Basophils % 0.2 % (0-2.0) 03/01/19 05:35 Basophils % (Manual) 0.0 % (0-2.0) 03/01/19 05:35 Myelocytes % (Man) 0 % (0-2) D 03/01/19 05:35 Promyelocytes % (Man) 0 % (0-2) 03/01/19 05:35 Blast Cells % (Manual) 0 % (0-0) 03/01/19 05:35 Nucleated RBC % 0 % (0-0) 03/01/19 05:35 Metamyelocytes 10 % (0-2) H D 03/01/19 05:35 Hypochromia 0 03/01/19 05:35 Toxic Granulation 0 02/28/19 02:08 Dohle Bodies 0 02/28/19 02:08 Platelet Estimate Decreased 03/01/19 05:35 Polychromasia 0 03/01/19 05:35 Poikilocytosis 0 03/01/19 05:35 Basophilic Stippling 0 02/28/19 02:08 Anisocytosis 0 03/01/19 05:35 Microcytosis 0 03/01/19 05:35 Macrocytosis 0 03/01/19 05:35 Spherocytes 0 02/28/19 02:08 Sickle Cells 0 02/28/19 02:08 Target Cells 0 02/28/19 02:08 Tear Drop Cells 0 02/28/19 02:08 Ovalocytes 0 02/28/19 02:08 Stomatocytes 0 02/28/19 02:08 Helmet Cells 0 02/28/19 02:08 Unger-Donnellson Bodies 0 02/28/19 02:08 Florence Rings 0 02/28/19 02:08 Deangelo Cells 0 02/28/19 02:08 Acanthocytes (Spur) 0 02/28/19 02:08 Rouleaux 0 02/28/19 02:08 Fragmented RBCs 0 02/28/19 02:08 Schistocytes 0 02/28/19 02:08 Retic Count 1.75 % (0.5-1.5) H 02/28/19 15:15 PT with INR 14.50 SEC (9.7-13.0) H 02/28/19 15:15 INR 1.23 (0.83-1.09) H 02/28/19 15:15 Sodium 142 mmol/L (136-145) 03/01/19 05:35 Potassium 4.4 mmol/L (3.5-5.1) 03/01/19 05:35 Chloride 111 mmol/L (98-107) H 03/01/19 05:35 Carbon Dioxide 23 mmol/L (21-32) 03/01/19 05:35 Anion Gap 8 MMOL/L (8-16) 03/01/19 05:35 BUN 22.5 mg/dL (7-18) H 03/01/19 05:35 Creatinine 1.2 mg/dL (0.55-1.3) 03/01/19 05:35 Est GFR (CKD-EPI)AfAm 58.92 03/01/19 05:35 Est GFR (CKD-EPI)NonAf 50.84 03/01/19 05:35 Random Glucose 158 mg/dL (74-106) H 03/01/19 05:35 Lactic Acid 1.8 mmol/L (0.4-2.0) 03/01/19 02:40 Calcium 7.9 mg/dL (8.5-10.1) L 03/01/19 05:35 Phosphorus 3.8 mg/dL (2.5-4.9) 03/01/19 05:35 Magnesium 2.1 mg/dL (1.8-2.4) 03/01/19 05:35 Iron 10 ug/dL (50-175) L 02/28/19 15:15 TIBC 260 ug/dL (250-450) 02/28/19 15:15 Iron Saturation 3 % (17.5-39) L 02/28/19 15:15 Unsaturated IBC 250 ug/dL (200-275) 02/28/19 15:15 Ferritin 189.2 ng/ml (8-388) 02/28/19 15:15 Total Bilirubin 0.4 mg/dL (0.2-1) 03/01/19 05:35 AST 39 U/L (15-37) H 03/01/19 05:35 ALT 31 U/L (13-61) 03/01/19 05:35 Alkaline Phosphatase 54 U/L (45-117) 03/01/19 05:35 Creatine Kinase 968 U/L (26-192) H 02/28/19 21:25 Creatine Kinase Index 0.3 % (0.0-5.0) 02/28/19 21:25 CK-MB (CK-2) 3.3 ng/mL (0.5-3.6) 02/28/19 21:25 Troponin I 0.18 ng/ml (0.00-0.05) H 03/01/19 02:40 Total Protein 5.7 g/dl (6.4-8.2) L 03/01/19 05:35 Albumin 3.0 g/dl (3.4-5.0) L 03/01/19 05:35 Lipase 282 U/L (73-393) 02/28/19 03:50 TSH 1.14 uIU/ml (0.358-3.74) 02/28/19 02:08 Urine Color Yellow 02/28/19 02:08 Urine Appearance Clear 02/28/19 02:08 Urine pH 5.0 (5.0-8.0) D 02/28/19 02:08 Ur Specific [place] 1.008 (1.010-1.035) L 02/28/19 02:08 Urine Protein Negative (NEGATIVE) 02/28/19 02:08 Urine Glucose (UA) Negative (NEGATIVE) 02/28/19 02:08 Urine Ketones Negative (NEGATIVE) 02/28/19 02:08 Urine Blood Trace (NEGATIVE) 02/28/19 02:08 Urine Nitrite Negative (NEGATIVE) 02/28/19 02:08 Urine Bilirubin Negative (NEGATIVE) 02/28/19 02:08 Urine Urobilinogen 0.2 mg/dL (0.2-1.0) 02/28/19 02:08 Ur Leukocyte Esterase Negative (NEGATIVE) 02/28/19 02:08 Urine WBC (Auto) 1 /hpf (0-5) 02/28/19 02:08 Urine RBC (Auto) 1 /hpf (0-4) 02/28/19 02:08 Urine Casts (Auto) 0 /lpf (0-8) 02/28/19 02:08 U Epithel Cells (Auto) 1.5 /HPF (0-5/HPF) 02/28/19 02:08 Urine Bacteria (Auto) 54.1 /hpf (NEGATIVE) 02/28/19 02:08 Blood Type A POSITIVE 02/28/19 15:15 Antibody Screen Negative 02/28/19 15:15 Current Medications Acetaminophen (Tylenol -) 650 mg PO Q6H PRN PRN Reason: Fever Or Pain Last Admin: 03/01/19 09:27 Dose: 650 mg Albuterol Sulfate (Ventolin 0.083% Nebulizer Soln -) 1 amp NEB QID PRN PRN Reason: WHEEZING Last Admin: 03/01/19 07:30 Dose: 1 amp Hydrocortisone Sodium Succinate (Solu-Cortef -) [address] [facility] Last Admin: 03/01/19 09:26 Dose: 50 mg Meropenem 1 gm/ Dextrose 100 mls @ 200 mls/hr IVPB Q8H-IV IBETH Last Admin: 03/01/19 10:18 Dose: 200 mls/hr Morphine Sulfate (Morphine Sulfate) 2 mg IVPUSH Q6H PRN PRN Reason: PAIN LEVEL 7 - 10 Ondansetron HCl (Zofran Injection) 4 mg IVPUSH Q6H PRN PRN Reason: NAUSEA AND/OR VOMITING Last Admin: 02/28/19 09:52 Dose: 4 mg Potassium Chloride (K-Dur -) [address] [facility] Last Admin: 02/28/19 09:37 Dose: 20 meq Ranitidine HCl (Zantac -) [address] [facility] Last Admin: 03/01/19 09:27 Dose: 150 mg Tamsulosin HCl (Flomax -) 0.4 mg PO DAILY@0830 [facility] Last Admin: 03/01/19 08:44 Dose: 0.[address] Abdomen/ Pelvis: Impression: There is an 8 x 6.5 mm obstructing stone at or just proximal to the left uteropelvic junction with mild to moderate left hydronephrosis and significant perinephritic stranding with a small amount of perinephric fluid. The rest of the left ureter appears unremarkable. 4.5 mm nonobstructing right renal lower pole stone. 1.4 cm low-attenuation density in the right hepatic lobe , posteriorly likely representing a cyst. 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 pt is admitted with pyelonephritis. during hospital course, pt developed septic shock requiring ICU monitoring and pressor support. Septic Shock 2/2 Pyelonephritis -febrile, tachycardic -femoral line pulled out by pt overnight, BP has remained stable. continue to monitor -Lactate downtrending 4.8 ->1.8 -Vanc and Zosyn given at the ED -c/w merrem day 2 -Urine culture and blood culture growing lactose fermenting gram negative bacilli Left nephrolithiasis -CTAP: moderate left hydronephrosis due to a 7mm proximal UPJ stone with probable ruptured calyx. -Urology (Dr Landeros) recs appreciated -c/w Flomax 0.4mg daily -c/w IVF hydration -pain control with Tylenol VICKI likely 2/2 postrenal obstruction -improving -Cr 1.2 -avoid nephrotoxic agents such as NSAIDs -encourage po hydration Hypokalemia -baseline at 3.0, pt states she has hx of this -c/w KCl 20mg daily Thrombocytopenia -likely 2/2 myelosuppression of sepsis -continue to monitor Asthma -albuterol neb prn F/E/N -IV 1/2 NS @100cc/hr -HypoK, repleted -Routine bmp monitoring -regular diet DVT ppx -SCDs 2/2 thrombocytopenia Disposition -full code, continue to monitor until medically optimized Visit type - Emergency Visit Emergency Visit: No - New Patient This patient is new to me today: Yes Date on this admission: 03/01/19 - Critical Care Critical Care patient: Yes Total Critical Care Time (in minutes): 37 Critical Care Statement: The care of this patient involved high complexity decision making to prevent further life threatening deterioration of the patient 's condition and/or to evaluate & treat vital organ system(s) failure or risk of failure. - Discharge Referral Referred to [facility] No ATTENDING PHYSICIAN STATEMENT I saw and evaluated the patient. I reviewed the resident's note and discussed the case with the resident. I agree with the resident's findings and plan as documented. SUBJECTIVE: OBJECTIVE: ASSESSMENT AND PLAN:
[2019-03-01] MEDS ORDERED: ACETAMINOPHEN 1000 MG/100 ML VIAL (NON FORMULARY) IVPB ONE (17:21)
--- NOTE | 2019-03-01 19:26 | PN ---
Teaching Attending Note Name of Resident: Mary Ramirez ATTENDING PHYSICIAN STATEMENT I saw and evaluated the patient. I reviewed the resident's note and discussed the case with the resident. I agree with the resident's findings and plan as documented. SUBJECTIVE: Left flank pain much improved. No further fevers/nausea/vomiting. Reports some intermittent SOB - no CP/cough/sputum/hemoptysis. No dysuria/ hematuria. Dislodged Femoral Central venous catheter overnight. Off pressors since midnight. OBJECTIVE: Fever resolved, maintaining adequate BP with MAP > 70 Last Vital Signs Temp Pulse Resp BP Pulse Ox 98.4 F 116 H 18 101/60 100 03/01/19 18:00 03/01/19 18:30 03/01/19 18:00 03/01/19 18:00 03/01/19 18:30 Heart - S1, S2, RRR Lungs - clear to auscultation, mildly reduced air entry at bases. Abdomen - High BMI. Soft, Left flank tenderness improving. L nephrostomy in place draining clear urine. Bowel Sounds normal. Neuro - AAO x 3. Tone/Power normal all 4 extremities. Extremities - mild edema, no calf tenderness. Laboratory Results - last 24 hr 02/28/19 02/28/19 03/01/19 21:25 21:25 02:40 WBC RBC Hgb Hct MCV MCH MCHC RDW Plt Count MPV Absolute Neuts (auto) Neutrophils % Neutrophils % (Manual) Band Neutrophils % Lymphocytes % Lymphocytes % (Manual) Monocytes % Monocytes % (Manual) Eosinophils % Eosinophils % (Manual) Basophils % Basophils % (Manual) Myelocytes % (Man) Promyelocytes % (Man) Blast Cells % (Manual) Nucleated RBC % Metamyelocytes Hypochromia Platelet Estimate Polychromasia Poikilocytosis Anisocytosis Microcytosis Macrocytosis Sodium Potassium Chloride Carbon Dioxide Anion Gap BUN Creatinine Est GFR (CKD-EPI)AfAm Est GFR (CKD-EPI)NonAf Random Glucose Lactic Acid 3.1 H* 1.8 Calcium Phosphorus Magnesium Total Bilirubin AST ALT Alkaline Phosphatase Creatine Kinase 968 H Creatine Kinase Index 0.3 CK-MB (CK-2) 3.3 Troponin I 0.18 H Total Protein Albumin 03/01/19 03/01/19 03/01/19 02:40 05:35 05:35 WBC 20.4 H RBC 3.87 Hgb 11.0 Hct 33.1 MCV 85.5 MCH 28.3 MCHC 33.1 RDW 14.5 Plt Count 73 L D MPV 8.6 Absolute Neuts (auto) 19.3 H Neutrophils % 94.6 H Neutrophils % (Manual) 57.0 Band Neutrophils % 31.0 Lymphocytes % 2.7 L D Lymphocytes % (Manual) 2.0 L D Monocytes % 2.3 L D Monocytes % (Manual) 0 L Eosinophils % 0.2 D Eosinophils % (Manual) 0.0 Basophils % 0.2 Basophils % (Manual) 0.0 Myelocytes % (Man) 0 D Promyelocytes % (Man) 0 Blast Cells % (Manual) 0 Nucleated RBC % 0 Metamyelocytes 10 H D Hypochromia 0 Platelet Estimate Decreased Polychromasia 0 Poikilocytosis 0 Anisocytosis 0 Microcytosis 0 Macrocytosis 0 Sodium 142 Potassium 4.4 Chloride 111 H Carbon Dioxide 23 Anion Gap 8 BUN 22.5 H Creatinine 1.2 Est GFR (CKD-EPI)AfAm 58.92 Est GFR (CKD-EPI)NonAf 50.84 Random Glucose 158 H Lactic Acid Calcium 7.9 L Phosphorus 3.8 Magnesium 2.1 Total Bilirubin 0.4 AST 39 H ALT 31 Alkaline Phosphatase 54 Creatine Kinase Creatine Kinase Index CK-MB (CK-2) Troponin I 0.18 H Total Protein 5.7 L Albumin 3.0 L Current Medications Generic Name Dose Route Start Last Admin Trade Name Freq PRN Reason Stop Dose Admin Acetaminophen 650 mg 03/01/19 09:15 03/01/19 09:27 Tylenol - PO 650 mg Q6H PRN Administration Fever Or Pain Albuterol Sulfate 1 amp 02/28/19 06:13 03/01/19 07:30 Ventolin 0.083% Nebulizer Soln - NEB 1 amp QID PRN Administration WHEEZING Hydrocortisone Sodium Succinate 50 mg 03/01/19 10:00 03/01/19 09:26 Solu-Cortef - IVPUSH 50 mg BID IBETH Administration Meropenem 1 gm/ Dextrose 100 mls @ 200 mls/hr 02/28/19 14:00 03/01/19 17:28 IVPB 200 mls/hr Q8H-IV IBETH Administration Morphine Sulfate 2 mg 03/01/19 07:43 Morphine Sulfate IVPUSH Q6H PRN PAIN LEVEL 7 - 10 Ondansetron HCl 4 mg 02/28/19 06:16 02/28/19 09:52 Zofran Injection IVPUSH 4 mg Q6H PRN Administration NAUSEA AND/OR VOMITING Potassium Chloride 20 meq 02/28/19 10:00 02/28/19 09:37 K-Dur - PO 20 meq DAILY IBETH Administration Ranitidine HCl 150 mg 03/01/19 10:00 03/01/19 09:27 Zantac - PO 150 mg DAILY IB[facility] Administration Tamsulosin HCl 0.4 mg 02/28/19 08:30 03/01/19 08:44 Flomax - PO 0.4 mg DAILY@0830 IBETH Administration Home Medications Medication Instructions Recorded Potassium Chloride [K-Tab ER] 20 meq PO DAILY 02/05/16 Diphenhydramine HCl [Benadryl -] 25 mg PO Q6H 06/06/17 Albuterol 0.083% Nebulizer Maddie 1 neb NEB QID PRN 02/28/19 [Ventolin 0.083%] Albuterol Sulfate Inhaler - 1 - 2 inh PO QID PRN 02/28/19 [Ventolin Hfa Inhaler -] Ranitidine HCl [Zantac] 300 mg PO BID 02/28/19 ASSESSMENT/PLAN: 53 year old female with history of Asthma, presented to ED with abdominal pain, mostly R sided with reported myalgia/nausea/vomiting. 1. Septic Shock secondary to Acute Pyelonephritis due to urinary obstruction by 7mm prox UPJ stone with Bacteremia Shock resolved. s/p IR guided Nephrostomy Febrile, Hypotensive, Tachycardic, requiring Levophed and stress dose steroids - now resolved, off pressors, maintaining adequate BP CT A/P - L Hydronephrosis 8mm proximal UPJ stone with mild to moderate hydronephrosis. R non-obstructing lower pole calculus. Urine Cx/Blood Cx positive for LFNB. Meropenem as per ID. Taper stress dose steroids. Lactic Acidosis resolved. Urology evaluated - for Cystoscopy/Left JJ Stent when more stable. 2. VICKI sec to obstructive uropathy versus ATN due to hypotension - resolved with IV hydration and pressor support. 3. Thrombocytopenia, likely myelosuppressive due to sepsis +/- consumptive due to elevated temperature - will monitor. 4. Asthma- no evidence of acute exacerbation - Albuterol PRN 5. Hypokalemia - repleted. 6. Iron deficiency Anemia - does not appear acute. Iron Sat 3. Will need to obtain Colonoscopy hx and refer to GI as out-patient. 7. Troponin egression, secondary to demand ischemia due to septic shock. TnI max 0.18 - will trend. Cardiology consulted. DVT Px - SCDs. Heparin held due to Thrombocytopenia. GI Px - Ranitidine.
[2019-03-02] MEDS ORDERED: ACETAMINOPHEN 1000 MG/100 ML VIAL (NON FORMULARY) IVPB ONE ×3 (01:31→17:06)
[2019-03-02] MEDS ORDERED: MEROPENEM 1 GM VIAL (RESTRICTED TO ID) IVPB ONE ×2 (02:03→09:02)
[2019-03-02] MEDS ORDERED: DEXTROSE 5%-WATER 100 ML IVPB ONE ×2 (02:03→09:02)
[2019-03-02] MEDS: MEROPENEM 1 GM in DEXTROSE 5%-WATER 100 ML IVPB SCH ×2 (02:04→09:14)
[2019-03-02 06:40] LABS: BASO % 0.2 % (0-2.0); EOS % 0.7 % (0-4.5); HEMATOCRIT 30.9 % (32.4-45.2); HEMOGLOBIN 10.3 GM/dL (10.7-15.3); LYMPH % 5.5 % (8-40); MCH 28.3 pg (25.7-33.7); MCHC 33.3 g/dl (32.0-36.0); MEAN CELL VOLUME 84.9 fl (80-96); MEAN PLT VOLUME 8.9 fl (7.5-11.1); MONO % 3.2 % (3.8-10.2); NEUT % 90.4 % (42.8-82.8); PLATELET COUNT 72 K/MM3 (134-434); RBC 3.64 M/mm3 (3.60-5.2); RDW 15.3 % (11.6-15.6); WHITE BLOOD COUNT 17.8 K/mm3 (4.0-10.0)
[2019-03-02 06:55] LABS: CREATININE 0.6 mg/dL (0.55-1.3); POTASSIUM 3.5 mmol/L (3.5-5.1)
[2019-03-02] MEDS: TAMSULOSIN HCL 0.4 MG CAP PO SCH (07:57)
[2019-03-02] MEDS: ONDANSETRON 4 MG/2 ML VIAL IVPUSH PRN (08:01)
[2019-03-02] MEDS: RANITIDINE HCL 150 MG TABLET (FP) PO SCH (09:14)
[2019-03-02] MEDS: POTASSIUM CHLORIDE TABS 20 MEQ TABLET.ER (FP) PO SCH (09:14)
[2019-03-02] MEDS: HYDROCORTISONE SOD SUCCINATE 100 MG/2 ML VIAL IVPUSH SCH ×2 (09:14→21:09)
--- NOTE | 2019-03-02 11:23 | CON.CARD ---
Consult Consult Specialty:: Cardiology Referred by:: hospitalist Reason for Consultation:: elevated troponin - History of Present Illness Chief Complaint: abdominal pain History of Present Illness: 53 year old woman with pmh asthma, recurrent UTIs, h/o atypical chest pain in the past, adm with abd pain and body aches, found to have urosepsis secondary to pyelonephritis. Cardiac enzymes were sent and was noted to have a mildly elevated troponin level. pt was seen and examined today in nad. states she is feeling better just tired. states she does have intermittent chest pain which is not changed recently and none currently. no sob, pnd, orthopnea. she does note intermittent b/l LE edema. - History Source History Provided By: Patient, Medical Record Limitations to Obtaining History: No Limitations - Past Medical History Cardio/Vascular: Yes: Other (svt) Pulmonary: Yes: Asthma Renal/: Yes: Other (hypokalemia) - Alcohol/Substance Use Hx Alcohol Use: No - Smoking History Smoking history: Never smoked Have you smoked in the past 12 months: No Aproximately how many cigarettes per day: 0 Home Medications - Allergies Allergies/Adverse Reactions: Allergies Allergy/AdvReac Type Severity Reaction Status Date / Time latex Allergy Mild Verified 02/28/19 00:52 lidocaine Allergy Verified 02/28/19 00:52 paprika Allergy Verified 02/28/19 00:52 peanut Allergy Difficulty Verified 02/28/19 00:52 Breathing procaine HCl [From Novocain] Allergy Verified 02/28/19 00:52 POLYURETHANE Allergy Intermediate Swelling Uncoded 02/28/19 00:52 shrimp Allergy Intermediate Hives Uncoded 02/28/19 00:52 - Home Medications Home Medications: Ambulatory Orders Potassium Chloride [K-Tab ER] 10 meq PO BID 02/05/16 Diphenhydramine HCl [Benadryl -] 25 mg PO Q6H 06/06/17 Albuterol 0.083% Nebulizer Maddie [Ventolin 0.083%] 1 neb NEB QID PRN 02/28/19 Albuterol Sulfate Inhaler - [Ventolin Hfa Inhaler -] 1 - 2 inh PO QID PRN Ranitidine HCl [Zantac] 300 mg PO BID 02/28/19 Family Disease History - Family Disease History Family History: Denies Review of Systems - Review of Systems Constitutional: reports: Fever, Malaise, Weakness. denies: No Symptoms, Chills , Diaphoresis, Lethargy, Loss of Appetite, Night Sweats, Unintentional Wgt. Loss , Other Eyes: denies: No Symptoms, Blind Spots, Blurred Vision, Double Vision, Eye Pain , Floaters, Photophobia, Recent Change in Vision, Other HENT: denies: No Symptoms, Difficult Swallowing, Ear Discharge, Ear Pain, Epistaxis, Gingival Bleeding, Hearing Loss, Mouth Swelling, Nasal Congestion, Ocular Prosthesis, Throat Pain, Toothache, Ringing in Ears, Other Neck: denies: No Symptoms, Decreased ROM, Lumps, Pain on Movement, Stiffness, Swollen Glands, Tenderness, Other Cardiovascular: reports: Chest Pain, Edema. denies: No Symptoms, Palpitations, Shortness of Breath, Other Respiratory: denies: No Symptoms, Cough, Exercise Intolerance, Hemoptysis, Orthopnea, PND, Snoring, SOB, SOB on Exertion, Wheezing, Other Gastrointestinal: reports: Abdominal Pain. denies: No Symptoms, Bloating, Constipation, Diarrhea, Dysphagia, Indigestion, Melena, Nausea, Rectal Bleeding , Vomiting, Vomiting Blood, Other Genitourinary: denies: No Symptoms, Burning, Discharge, Dysuria, Flank Pain, Frequency, Hematuria, Incontinence, Lesions, Menses, Pain, Testicular Mass, Testicular Pain, Testicular Swelling, Urgency, Vaginal Bleeding, Other Breasts: denies: No Symptoms Reported, See HPI, Breast Implants, Discharge from Nipple, Lumps, Pain, Skin Changes, Other Musculoskeletal: denies: No Symptoms, Back Pain, Crepitus, Decreased ROM, Extremity Pain, Joint Pain, Joint Swelling, Muscle Pain, Muscle Cramps, Muscle Weakness, Other Integumentary: denies: No Symptoms, Blister, Bruising, Change in Color, Eczema, Erythema, Incision, Lesions, Lump, Pallor, Pruritis, Rash, Wound, Other Neurological: denies: No Symptoms, Change in LOC, Change in Speech, Confusion, Dizziness, Headache, Incoordination, Numbness, Parasthesia, Pre-Existing Deficit , Seizure, Syncope, Tremors, Unsteady Gait, Weakness, Other Endocrine: denies: No Symptoms, Excessive Sweating, Flushing, Increased Hunger, Increased Thirst, Intolerance to Cold, Intolerance to Heat, Unexplained Weight Gain, Unexplained Weight Loss, Other Hematology/Lymphatic: denies: No Symptoms, Easily Bruised, Excessive Bleeding, Swollen Glands, Other Psychiatric: denies: No Symptoms, Altered Sleep Pattern, Anxiety, Depression, Hallucinations, Panic, Paranoia, Suicidal, Other Vital Signs: Vital Signs Temperature 98.5 F 03/02/19 10:00 Pulse Rate 90 03/02/19 10:00 Respiratory Rate 30 H 03/02/19 10:00 Blood Pressure 160/93 03/02/19 10:00 O2 Sat by Pulse Oximetry (%) 99 03/02/19 07:45 Constitutional: Yes: No Distress, Calm Eyes: Yes: Conjunctiva Clear, EOM Intact HENT: Yes: Atraumatic, Normocephalic Neck: Yes: Supple, Trachea Midline Respiratory: Yes: Regular, CTA Bilaterally. No: Rales, Rhonchi, SOB, Wheezes Gastrointestinal: Yes: Normal Bowel Sounds, Soft Cardiovascular: Yes: Regular Rate and Rhythm. No: Bradycardia, Tachycardia, Pulse Irregular, Gallop, Rub, Varicosities JVD: No Carotid Bruit: No PMI: Non-Displaced Heart Sounds: Yes: S1, S2. No: Split S2, S3, S4, Clicks, Gallop, Rub, Bruit Murmur: No: Systolic Murmur, Diastolic Murmur Edema: Yes Edema: LLE: Trace, RLE: Trace Peripheral Pulses WNL: Yes Neurological: Yes: Alert, Oriented Psychiatric: Yes: Alert, Oriented - Other Data Labs, Other Data: CBC, BMP 03/02/19 05:40 03/02/19 05:40 INR, PTT INR 1.23 (0.83-1.09) H 02/28/19 15:15 ekg sinus tach, nsst Imaging - Results Chest X-ray: Report Reviewed, Image Reviewed EKG: Report Reviewed, Image Reviewed Other: Report Reviewed, Image Reviewed (tele nsr sinus tach) Assessment/Plan 53 year old woman with pmh asthma, recurrent UTIs, h/o atypical chest pain in the past, adm with abd pain and body aches, found to have urosepsis secondary to pyelonephritis. Cardiac enzymes were sent and was noted to have a mildly elevated troponin level. pt was seen and examined today in nad. states she is feeling better just tired. states she does have intermittent chest pain which is not changed recently and none currently. no sob, pnd, orthopnea. she does note intermittent b/l LE edema. Elevated troponin-inicidentally noted -not trending up -not c/w ACS -likely due to sepsis and REAGAN -start ASA 81mg daily if safe to do so -start statin if safe -check echo when pt can be positioned correctly for study to evaluate LV systolic function -pt reports chronic intermittent atypical chest pain (prior ER visits here with atypical chest pain), recc outpatient evaluation for possible ischemic workup if not already done, would not pursue as inpatient while treating urosepsis
--- NOTE | 2019-03-02 12:15 | PN ---
Teaching Attending Note Name of Resident: Ale Monahan ATTENDING PHYSICIAN STATEMENT I saw and evaluated the patient. I reviewed the resident's note and discussed the case with the resident. I agree with the resident's findings and plan as documented. SUBJECTIVE: Pt seen and examined in the ICU. Remains off pressors. Fever curve trending down. Urine and blood cultures growing sensitive E coli. OBJECTIVE: Vital Signs Period Temp Pulse Resp BP Sys/Gifford Pulse Ox Last 24 Hr 98.2 F-99.3 F 83-116 17-37 88-160/59-93 99-100 Intake & Output 02/27/19 02/28/19 03/01/19 03/02/19 23:59 23:59 23:59 23:59 Intake Total 1940 1670 120 Output Total 280 1100 500 Balance 1660 570 -380 Weight 93 kg 92.986 kg Gen: less tachypneic Heart: RRR Lung: scattered basilar rales Abd: soft, nontender Ext: no edema CBC, BMP 03/02/19 05:40 03/02/19 05:40 Active Medications Acetaminophen (Tylenol -) 650 mg PO Q6H PRN PRN Reason: Fever Or Pain Last Admin: 03/01/19 09:27 Dose: 650 mg Albuterol Sulfate (Ventolin 0.083% Nebulizer Soln -) 1 amp NEB QID PRN PRN Reason: WHEEZING Last Admin: 03/01/19 07:30 Dose: 1 amp Hydrocortisone Sodium Succinate (Solu-Cortef -) 50 mg IVPUSH BID [facility] Last Admin: 03/02/19 09:14 Dose: 50 mg Meropenem 1 gm/ Dextrose 100 mls @ 200 mls/hr IVPB Q8H-IV IBETH Last Admin: 03/02/19 09:14 Dose: 200 mls/hr Morphine Sulfate (Morphine Sulfate) 2 mg IVPUSH Q6H PRN PRN Reason: PAIN LEVEL 7 - 10 Ondansetron HCl (Zofran Injection) 4 mg IVPUSH Q6H PRN PRN Reason: NAUSEA AND/OR VOMITING Last Admin: 03/02/19 08:01 Dose: 4 mg Potassium Chloride (K-Dur -) 20 meq PO DAILY [facility] Last Admin: 03/02/19 09:14 Dose: 20 meq Ranitidine HCl (Zantac -) 150 mg PO DAILY [facility] Last Admin: 03/02/19 09:14 Dose: 150 mg Tamsulosin HCl (Flomax -) 0.4 mg PO DAILY@0830 [facility] Last Admin: 03/02/19 07:57 Dose: 0.4 mg ASSESSMENT AND PLAN: Left Pyelonephritis/Left Ureteral Stone s/p Left Nephrostomy tube placement Septic Shock resolving Thrombocytopenia Acute Kidney Injury improving Lactic Acidosis resolved +Troponins likely Demand Ischemia Asthma - continue antibiotics per ID - taper off hydrocortisone - monitor urine output, creatinine - pain control - monitor platelets - PO as tolerated - DVT prophylaxis - can monitor on floor
--- NOTE | 2019-03-02 12:25 | PN ---
Physical Exam: SUBJECTIVE: Patient seen and examined at the bedside. States she is feeling better but is having increased discomfort near the nephrostomy. States that IV tylenol helps. States that her SOB and CP has resolved. OBJECTIVE: Vital Signs Period Temp Pulse Resp BP Sys/Gifford Pulse Ox Last 24 Hr 98.2 F-99.3 F 83-116 17-37 88-160/59-93 99-100 GENERAL: The patient is awake, alert, and fully oriented, in no acute distress. HEAD: Normal with no signs of trauma. EYES: PERRL, extraocular movements intact, sclera anicteric, conjunctiva clear. No ptosis. ENT: Ears normal, nares patent, oropharynx clear without exudates, moist mucous membranes. NECK: Trachea midline, full range of motion, supple. LUNGS: Breath sounds equal, clear to auscultation bilaterally, no wheezes, no crackles, no accessory muscle use. HEART: Regular rate and rhythm, S1, S2 without murmur, rub or gallop. ABDOMEN: Soft, Nt/ND, normoactive bowel sounds, no guarding, posterior R nephrostomy tube noted with clear-yellow urine. EXTREMITIES: 2+ pulses, warm, well-perfused, no edema. NEUROLOGICAL: Cranial nerves II through XII grossly intact. Normal speech, gait not observed. PSYCH: Normal mood, normal affect. SKIN: Warm, dry, normal turgor, no rashes or lesions noted, previous R femoral TLC site without any bleeding C/D/I Laboratory Results - last 24 hr 03/02/19 03/02/19 05:40 05:40 WBC 17.8 H RBC 3.64 Hgb 10.3 L Hct 30.9 L MCV 84.9 MCH 28.3 MCHC 33.3 RDW 15.3 Plt Count 72 L MPV 8.9 Absolute Neuts (auto) 16.1 H Neutrophils % 90.4 H Lymphocytes % 5.5 L D Monocytes % 3.2 L Eosinophils % 0.7 D Basophils % 0.2 Nucleated RBC % 0 Sodium 143 Potassium 3.5 Chloride 114 H Carbon Dioxide 23 Anion Gap 6 L BUN 20.0 H Creatinine 0.6 Est GFR (CKD-EPI)AfAm 118.93 Est GFR (CKD-EPI)NonAf 102.61 Random Glucose 99 Calcium 8.0 L Active Medications Generic Name Dose Route Start Last Admin Trade Name Freq PRN Reason Stop Dose Admin Acetaminophen 650 mg 03/01/19 09:15 03/01/19 09:27 Tylenol - PO 650 mg Q6H PRN Administration Fever Or Pain Albuterol Sulfate 1 amp 02/28/19 06:13 03/01/19 07:30 Ventolin 0.083% Nebulizer Soln - NEB 1 amp QID PRN Administration WHEEZING Hydrocortisone Sodium Succinate 50 mg 03/01/19 10:00 03/02/19 09:14 Solu-Cortef - IVPUSH 50 mg BID IBETH Administration Meropenem 1 gm/ Dextrose 100 mls @ 200 mls/hr 02/28/19 14:00 03/02/19 09:14 IVPB 200 mls/hr Q8H-IV IBETH Administration Morphine Sulfate 2 mg 03/01/19 07:43 Morphine Sulfate IVPUSH Q6H PRN PAIN LEVEL 7 - 10 Ondansetron HCl 4 mg 02/28/19 06:16 03/02/19 08:01 Zofran Injection IVPUSH 4 mg Q6H PRN Administration NAUSEA AND/OR VOMITING Potassium Chloride 20 meq 02/28/19 10:00 03/02/19 09:14 K-Dur - PO 20 meq DAILY IBETH Administration Ranitidine HCl 150 mg 03/01/19 10:00 03/02/19 09:14 Zantac - PO 150 mg DAILY IBETH Administration Tamsulosin HCl 0.4 mg 02/28/19 08:30 03/02/19 07:57 Flomax - PO 0.4 mg DAILY@0830 IBETH Administration ASSESSMENT/PLAN: 53 year old female with past medical history of asthma, hypokalemia and prior urinary tract infections presents to the hospital for sudden onset diffuse, 10/ 10 abdominal pain with associated left flank pain for 1 day and admitted for septic shock 2/2 pyelonephritis. Septic Shock 2/2 to pyelonephritis Suspected adrenal insufficiency Thrombocytopenia Leukocytosis Acute kidney injury Asthma, not in exacerbation Hypokalemia (chronic; improved) Lactic acidosis (resolved) Neurologic - awake alert - no intervention at this time Cardiovascular -Pt off pressors currently maintaining MAPs -Will decrease Cortef to 50mg BID IVP while off pressors -Cardiology consulted, appreciate recommendations -Resume ASA -Start statin -Obtain echo to assess LV fn -recommend outpatient workup of atypical chest pain Pulmonary - patient saturating well and breathing comfortably on RA Renal -Pt currently has draining nephrostomy tube; urology on board -Monitor fever trend and leukocytosis -Cr improved today (0.6) with normalizing BP and improved infection control -Avoid nephrotoxic agents currently -Avoid NSAIDs -Continue Meropenem 1gm q8h (day 3) -F/U with ID about narrowing antibiotic selection since urine/blood cultures and sensitivities returned. ID -Blood and urine cultures growing E.Coli sensitive to all antibiotics except ampicillin and ampicillin sulbactam -Rest of ABX mgmt per ID -Thrombocytopenia attributed to sepsis, however will monitor for continued decline; if stabilizes will resume AC FEN: Fluids: PRN, encourage PO Electrolyte abnormalities: Patient with hx of hypokalemia, monitor for hypokalemia, replete as needed Nutrition: Advanced as tolerated (no eggs or peanuts) PPX: DVT - SCDs only due to thrombocytopenia, resume AC if thrombocytopenia is stablized/ resolved GI - Zantac 150mg qdaily Dispo: Plan to transfer to / Case discussed with Dr. Grace Visit type - Emergency Visit Emergency Visit: Yes ED Registration Date: 02/28/19 Care time: The patient presented to the Emergency Department on the above date and was hospitalized for further evaluation of their emergent condition. - New Patient This patient is new to me today: Yes Date on this admission: 03/02/19 - Critical Care Critical Care patient: Yes Total Critical Care Time (in minutes): 40 Critical Care Statement: The care of this patient involved high complexity decision making to prevent further life threatening deterioration of the patient 's condition and/or to evaluate & treat vital organ system(s) failure or risk of failure. ATTENDING PHYSICIAN STATEMENT I saw and evaluated the patient. I reviewed the resident's note and discussed the case with the resident. I agree with the resident's findings and plan as documented. SUBJECTIVE: OBJECTIVE: ASSESSMENT AND PLAN:
--- NOTE | 2019-03-02 13:53 | PN ---
Progress Note, Physician History of Present Illness: Pt seen and examined at bedside. She is awake and alert. She denies shortness of breath. - Current Medication List Current Medications: Active Medications Acetaminophen (Tylenol -) 650 mg PO Q6H PRN PRN Reason: Fever Or Pain Last Admin: 03/01/19 09:27 Dose: 650 mg Albuterol Sulfate (Ventolin 0.083% Nebulizer Soln -) 1 amp NEB QID PRN PRN Reason: WHEEZING Last Admin: 03/01/19 07:30 Dose: 1 amp Hydrocortisone Sodium Succinate (Solu-Cortef -) 50 mg IVPUSH BID IBETH Last Admin: 03/02/19 09:14 Dose: 50 mg Meropenem 1 gm/ Dextrose 100 mls @ 200 mls/hr IVPB Q8H-IV IBETH Last Admin: 03/02/19 09:14 Dose: 200 mls/hr Morphine Sulfate (Morphine Sulfate) 2 mg IVPUSH Q6H PRN PRN Reason: PAIN LEVEL 7 - 10 Ondansetron HCl (Zofran Injection) 4 mg IVPUSH Q6H PRN PRN Reason: NAUSEA AND/OR VOMITING Last Admin: 03/02/19 08:01 Dose: 4 mg Potassium Chloride (K-Dur -) 20 meq PO DAILY [facility] Last Admin: 03/02/19 09:14 Dose: 20 meq Ranitidine HCl (Zantac -) 150 mg PO DAILY [facility] Last Admin: 03/02/19 09:14 Dose: 150 mg Tamsulosin HCl (Flomax -) 0.4 mg PO DAILY@0830 [facility] Last Admin: 03/02/19 07:57 Dose: 0.4 mg - Objective Vital Signs: Vital Signs Temperature 98.5 F 03/02/19 10:00 Pulse Rate 91 H 03/02/19 12:00 Respiratory Rate 17 03/02/19 12:00 Blood Pressure 145/97 03/02/19 12:00 O2 Sat by Pulse Oximetry (%) 99 03/02/19 07:45 Constitutional: Yes: Calm Eyes: Yes: Conjunctiva Clear HENT: Yes: Atraumatic Cardiovascular: Yes: S1, S2 Respiratory: Yes: CTA Bilaterally Gastrointestinal: Yes: Soft Genitourinary: Yes: Other (left nephrostomy) Musculoskeletal: Yes: WNL Edema: No Neurological: Yes: Oriented Psychiatric: Yes: Oriented Labs: CBC, BMP 03/02/19 05:40 03/02/19 05:40 INR, PTT INR 1.23 (0.83-1.09) H 02/28/19 15:15 Problem List - Problems (1) VICKI (acute kidney injury) Code(s): N17.9 - ACUTE KIDNEY FAILURE, UNSPECIFIED (2) Nephrolithiasis Code(s): N20.0 - CALCULUS OF KIDNEY (3) Sepsis Code(s): A41.9 - SEPSIS, UNSPECIFIED ORGANISM Assessment/Plan Current Medications Generic Name Dose Route Start Last Admin Trade Name Freq PRN Reason Stop Dose Admin Acetaminophen 650 mg 03/01/19 09:15 03/01/19 09:27 Tylenol - PO 650 mg Q6H PRN Administration Fever Or Pain Albuterol Sulfate 1 amp 02/28/19 06:13 03/01/19 07:30 Ventolin 0.083% Nebulizer Soln - NEB 1 amp QID PRN Administration WHEEZING Hydrocortisone Sodium Succinate 50 mg 03/01/19 10:00 03/02/19 09:14 Solu-Cortef - IVPUSH 50 mg BID IBETH Administration Meropenem 1 gm/ Dextrose 100 mls @ 200 mls/hr 02/28/19 14:00 03/02/19 09:14 IVPB 200 mls/hr Q8H-IV IBETH Administration Morphine Sulfate 2 mg 03/01/19 07:43 Morphine Sulfate IVPUSH Q6H PRN PAIN LEVEL 7 - 10 Ondansetron HCl 4 mg 02/28/19 06:16 03/02/19 08:01 Zofran Injection IVPUSH 4 mg Q6H PRN Administration NAUSEA AND/OR VOMITING Potassium Chloride 20 meq 02/28/19 10:00 03/02/19 09:14 K-Dur - PO 20 meq DAILY IBETH Administration Ranitidine HCl 150 mg 03/01/19 10:00 03/02/19 09:14 Zantac - PO 150 mg DAILY IBETH Administration Tamsulosin HCl 0.4 mg 02/28/19 08:30 03/02/19 07:57 Flomax - PO 0.4 mg DAILY@0830 IBETH Administration Impression 1. VICKI 2. lactic acidosis 3. left hydronephrosis 4. nephrolithiasis 5. bactermia 6. sepsis 7. hypotension 8. hypokalemia 9. hx svt 10. asthma Plan - renal function is stable - bp is improving - urology follow up - monitor urine output - maintain a map of 65 - hypotension and sepsis contributed to VICKI - avoid nsaids - cont abx Dr Alegria
--- NOTE | 2019-03-02 14:08 | PN ---
Progress Note (short form) - Note Progress Note: s/p PCN reports body aches and chills nausea this am Vital Signs Period Temp Pulse Resp BP Sys/Gifford Pulse Ox Last 24 Hr 98.4 F-99.3 F 83-116 17-37 101-160/60-97 99-100 cor-rrr lungs decreased bs at bases abd soft,nt ext no edema pcn in place CBC, BMP 03/02/19 05:40 03/02/19 05:40 Microbiology 02/28/19 18:30 Urine - Urine Nephrostomy Tube Left Urine Culture - Final NO GROWTH OBTAINED 02/28/19 02:08 Urine - Urine Clean Catch Urine Culture - Final Escherichia Coli 02/28/19 02:08 Blood - Peripheral Venous Blood Culture - Final Escherichia Coli 02/28/19 02:05 Blood - Peripheral Venous Blood Culture - Final Escherichia Coli Active Medications Acetaminophen (Tylenol -) 650 mg PO Q6H PRN PRN Reason: Fever Or Pain Last Admin: 03/01/19 09:27 Dose: 650 mg Albuterol Sulfate (Ventolin 0.083% Nebulizer Soln -) 1 amp NEB QID PRN PRN Reason: WHEEZING Last Admin: 03/01/19 07:30 Dose: 1 amp Hydrocortisone Sodium Succinate (Solu-Cortef -) 50 mg IVPUSH BID [facility] Last Admin: 03/02/19 09:14 Dose: 50 mg Meropenem 1 gm/ Dextrose 100 mls @ 200 mls/hr IVPB Q8H-IV IBETH Last Admin: 03/02/19 09:14 Dose: 200 mls/hr Morphine Sulfate (Morphine Sulfate) 2 mg IVPUSH Q6H PRN PRN Reason: PAIN LEVEL 7 - 10 Ondansetron HCl (Zofran Injection) 4 mg IVPUSH Q6H PRN PRN Reason: NAUSEA AND/OR VOMITING Last Admin: 03/02/19 08:01 Dose: 4 mg Potassium Chloride (K-Dur -) 20 meq PO DAILY [facility] Last Admin: 03/02/19 09:14 Dose: 20 meq Ranitidine HCl (Zantac -) 150 mg PO DAILY [facility] Last Admin: 03/02/19 09:14 Dose: 150 mg Tamsulosin HCl (Flomax -) 0.4 mg PO DAILY@0830 [facility] Last Admin: 08/20/19 07:57 Dose: 0.4 mg a/p sepsis ecoli bacteremia secondary to obstructive uropathy/ecoli uti s/p PCN now off pressors thrombocytopenia- most likely secondary to sepsis reanl function improved de-escalate antibiotics to cefazolin f/u with urology repeat blood cultures Problem List - Problems (1) Sepsis Code(s): A41.9 - SEPSIS, UNSPECIFIED ORGANISM (2) Obstructive uropathy Code(s): N13.9 - OBSTRUCTIVE AND REFLUX UROPATHY, UNSPECIFIED (3) Hypokalemia Code(s): E87.6 - HYPOKALEMIA
--- NOTE | 2019-03-02 16:55 | ECHO ---
Name: DENVER LIRA Exam:Adult Echocardiogram Study Date: 03/02/2019 03:18 PM Age: 53 yrs Reason For Study: EVALUATE LVF Height: 63 in Weight: 200 lb BSA: 1.9 m2 MMode/2D Measurements & Calculations IVSd: 0.94 cm Ao root diam: 2.7 cm LVIDd: 5.2 cm LVIDs: 3.6 cm LVPWd: 0.84 cm EDV(Teich): 127.5 ml LVOT diam: 2.1 cm ESV(Teich): 53.9 ml Doppler Measurements & Calculations MV E max aniceto: 76.5 cm/sec Ao V2 max: 119.3 cm/sec MV A max aniceto: 65.6 cm/sec Ao max P.7 mmHg MV E/A: 1.2 Ao V2 mean: 78.9 cm/sec MV dec time: 0.17 sec Ao mean P.0 mmHg Ao V2 VTI: 21.7 cm SRUTHI(I,D): 3.0 cm2 SRUTHI(V,D): 2.9 cm2 LV V1 max P.2 mmHg MR max aniceto: 343.9 cm/sec LV V1 mean P.1 mmHg MR max P.7 mmHg LV V1 max: 102.6 cm/sec LV V1 mean: 65.8 cm/sec LV V1 VTI: 19.2 cm SV(LVOT): 64.0 ml TR max aniceto: 202.7 cm/sec TR max P.5 mmHg Med Peak E' Aniceto: 7.1 cm/sec Med E/e': 10.8 Lat Peak E' Aniceto: 8.1 cm/sec Lat E/e': 9.5 Left Ventricle The left ventricle is normal in size. Left ventricular systolic function is normal. LVEF = 55-60%. Le ft Ventricular Filling pattern is normal for age. Right Ventricle The right ventricle is grossly normal size. The right ventricular systolic function is normal. Atria Normal left and right atrial size and function. Mitral Valve The mitral valve is normal in structure and function. Tricuspid Valve The tricuspid valve is normal. There is mild tricuspid regurgitation. Right ventricular systolic pres sure is normal. Aortic Valve The aortic valve is normal in structure and function. Pulmonic Valve The pulmonic valve is not well visualized. Great Vessels The aortic root is normal size. Pericardium/Pleura There is no pericardial effusion. Interpretation Summary The left ventricle is normal in size. Left ventricular systolic function is normal. LVEF = 55-60%. The right ventricle is grossly normal size. The right ventricular systolic function is normal. Normal left and right atrial size and function. The aortic valve is normal in structure and function. The mitral valve is normal in structure and function. There is mild tricuspid regurgitation. MD Monika Lisa 03/02/2019 04:55 PM
--- NOTE | 2019-03-02 16:57 | PN ---
Physical Exam: SUBJECTIVE: Patient seen and examined at bedside. pt states she still has body aches today OBJECTIVE: Vital Signs Period Temp Pulse Resp BP Sys/Gifford Pulse Ox Last 24 Hr 98.4 F-99.3 F 83-116 17-37 101-160/60-97 96-100 GENERAL: The patient is awake, alert, and fully oriented, in no acute distress. pt is diaphoretic LUNGS: Breath sounds equal, clear to auscultation bilaterally, no wheezes, no crackles, no accessory muscle use. HEART: Regular rate and rhythm, S1, S2 without murmur, rub or gallop. ABDOMEN: Soft, nontender, nondistended, normoactive bowel sounds, no guarding. Pt has L nephrostomy tube appropriately draining EXTREMITIES: 2+ pulses, warm, well-perfused, no edema. SKIN: Warm, dry, normal turgor, no rashes or lesions noted CBC, BMP 03/02/19 05:40 03/02/19 05:40 Current Medications Acetaminophen (Tylenol -) 650 mg PO Q6H PRN PRN Reason: Fever Or Pain Last Admin: 03/01/19 09:27 Dose: 650 mg Albuterol Sulfate (Ventolin 0.083% Nebulizer Soln -) 1 amp NEB QID PRN PRN Reason: WHEEZING Last Admin: 03/01/19 07:30 Dose: 1 amp Hydrocortisone Sodium Succinate (Solu-Cortef -) 50 mg IVPUSH BID [facility] Last Admin: 03/02/19 09:14 Dose: 50 mg Cefazolin Sodium/Dextrose (Ancef 2 Gm Premixed Ivpb -) 2 gm in 50 mls @ 100 mls /hr IVPB Q8H-IV IBETH Morphine Sulfate (Morphine Sulfate) 2 mg IVPUSH Q6H PRN PRN Reason: PAIN LEVEL 7 - 10 Ondansetron HCl (Zofran Injection) 4 mg IVPUSH Q6H PRN PRN Reason: NAUSEA AND/OR VOMITING Last Admin: 03/02/19 08:01 Dose: 4 mg Potassium Chloride (K-Dur -) 20 meq PO DAILY [facility] Last Admin: 03/02/19 09:14 Dose: 20 meq Ranitidine HCl (Zantac -) 150 mg PO DAILY [facility] Last Admin: 03/02/19 09:14 Dose: 150 mg Tamsulosin HCl (Flomax -) 0.4 mg PO DAILY@0830 IB[facility] Last Admin: 03/02/19 07:57 Dose: 0.[address] Abdomen/ Pelvis: Impression: There is an 8 x 6.5 mm obstructing stone at or just proximal to the left uteropelvic junction with mild to moderate left hydronephrosis and significant perinephritic stranding with a small amount of perinephric fluid. The rest of the left ureter appears unremarkable. 4.5 mm nonobstructing right renal lower pole stone. 1.4 cm low-attenuation density in the right hepatic lobe , posteriorly likely representing a cyst. A preliminary report was forwarded by the [facility], [employer] ASSESSMENT/PLAN: 53 yo F PMH of Asthma, hypokalemia, and prior UTIs presented to ED with sudden onset abdominal pain and body aches. pt is admitted with pyelonephritis. during hospital course, pt developed septic shock requiring ICU monitoring and pressor support. Septic Shock 2/2 Pyelonephritis -febrile, tachycardic -femoral line pulled out by pt overnight, BP has remained stable. continue to monitor -Lactate downtrending 4.8 ->1.8 -Vanc and Zosyn given at the ED -s/p merrem x 2 days, switched to cefazolin as per ID recs -Urine culture and blood culture growing Ecoli, sensitivities reviewed Left nephrolithiasis -CTAP: moderate left hydronephrosis due to a 7mm proximal UPJ stone with probable ruptured calyx. -Urology (Dr Landeros) recs appreciated -c/w Flomax 0.4mg daily -c/w IVF hydration -pain control with Tylenol -pt scheduled for stent on Friday VICKI likely 2/2 postrenal obstruction -improving -Cr 0.6 -avoid nephrotoxic agents such as NSAIDs -encourage po hydration Hypokalemia -baseline at 3.0, pt states she has hx of this -c/w KCl 20mg daily Thrombocytopenia -likely 2/2 myelosuppression of sepsis -continue to monitor Asthma -albuterol neb prn F/E/N -HypoK, repleted -Routine bmp monitoring -regular diet DVT ppx -SCDs 2/2 thrombocytopenia Disposition -full code, continue to monitor until medically optimized Visit type - Emergency Visit Emergency Visit: No - New Patient This patient is new to me today: No - Critical Care Critical Care patient: Yes Total Critical Care Time (in minutes): 36 Critical Care Statement: The care of this patient involved high complexity decision making to prevent further life threatening deterioration of the patient 's condition and/or to evaluate & treat vital organ system(s) failure or risk of failure. ATTENDING PHYSICIAN STATEMENT I saw and evaluated the patient. I reviewed the resident's note and discussed the case with the resident. I agree with the resident's findings and plan as documented. SUBJECTIVE: OBJECTIVE: ASSESSMENT AND PLAN:
[2019-03-02] MEDS: CEFAZOLIN 2 GM/D5W 2 GM/50 ML ML IVPB SCH (17:21)
--- NOTE | 2019-03-02 17:35 | PN ---
Teaching Attending Note Name of Resident: Mary Ramirez ATTENDING PHYSICIAN STATEMENT I saw and evaluated the patient. I reviewed the resident's note and discussed the case with the resident. I agree with the resident's findings and plan as documented. SUBJECTIVE:c/o pain at PCN site. denies CP, SOB, fever, chills, N/V/C/D OBJECTIVE: Last Vital Signs Temp Pulse Resp BP Pulse Ox 98.5 F 83 25 H 146/91 96 03/02/19 14:00 03/02/19 16:13 03/02/19 16:00 03/02/19 16:00 03/02/19 16:13 General NAD CV S1 S2 RRR no murmur/rub/gallop Lungs CTA B/l no wheezing/rales/rhonchi Abdomen soft NT/ND +PCN with clear urine Extremities no pedal edema ASSESSMENT AND PLAN: 53 year old female with history of Asthma, presented to ED with abdominal pain, mostly R sided with reported myalgia/nausea/vomiting. 1. Septic Shock secondary to Acute Pyelonephritis and Ecoli Bacteremia- afebrile , leukocytosis trending down. LA trended down. off pressors and stress steroids. Cx showing hebert sensitive ecoli. on meropenem can likely down grade. s/ p L nephrostomy tube placement 03/01 draining well. will repeat Cx. monitor for clearance. ID and urology on board. plan for stent placement when medically optimized 2. VICKI sec to obstructive uropathy versus ATN due to hypotension - resolved with IV hydration and pressor support. 3. Thrombocytopenia, likely myelosuppressive due to sepsis +/- consumptive due to elevated temperature - will monitor. 4. Asthma- no evidence of acute exacerbation - Albuterol PRN 5. Hypokalemia -resolved 6. Iron deficiency Anemia - does not appear acute. Iron Sat 3. Will need to obtain Colonoscopy hx and refer to GI as out-patient. 7. Troponinemia- secondary to demand ischemia due to septic shock. TnI max 0.18. would benefit from ischemia eval as outpatient. Cardio on board 8. DVT Px - SCDs. Heparin held due to Thrombocytopenia. 9. can transfer to med-surg 10. will likely require LYRIC when medically optimized. PT eval. The care of this patient involved high complexity decision making to prevent further life threatening deterioration of the patient's condition and/or to evaluate & treat vital organ system(s) failure or risk of failure. 40 minutes
[2019-03-03] MEDS ORDERED: ACETAMINOPHEN 1000 MG/100 ML VIAL (NON FORMULARY) IVPB ONE ×2 (01:15→09:25)
[2019-03-03] MEDS: CEFAZOLIN 2 GM/D5W 2 GM/50 ML ML IVPB SCH ×3 (03:00→17:32)
[2019-03-03] MEDS ORDERED: RANITIDINE HCL 150 MG TABLET (FP) PO ONE (04:36)
[2019-03-03 08:02] LABS: HEMATOCRIT 30.8 % (32.4-45.2); HEMOGLOBIN 10.1 GM/dL (10.7-15.3); MCHC 32.9 g/dl (32.0-36.0); MEAN CELL VOLUME 85.2 fl (80-96); MEAN PLT VOLUME 8.9 fl (7.5-11.1); PLATELET COUNT 107 K/MM3 (134-434); RBC 3.62 M/mm3 (3.60-5.2); RDW 15.1 % (11.6-15.6); WHITE BLOOD COUNT 18.9 K/mm3 (4.0-10.0)
[2019-03-03 08:26] LABS: CALCIUM 8.3 mg/dL (8.5-10.1); CREATININE 0.5 mg/dL (0.55-1.3); POTASSIUM 3.6 mmol/L (3.5-5.1)
[2019-03-03] MEDS ORDERED: MAG HYDROX/AL HYDROX/SIMETH 30 ML UNIT-DOSE CUP PO PRN (08:33)
[2019-03-03] MEDS ORDERED: MORPHINE SULFATE 2 MG/ML VIAL IM PRN (09:03)
[2019-03-03] MEDS ORDERED: KETOROLAC TROMETHAMINE 15 MG/ML VIAL IVPUSH PRN (09:24)
[2019-03-03] MEDS: ACETAMINOPHEN 325 MG TABLET (FP) PO PRN ×2 (09:27→22:18)
[2019-03-03] MEDS: POTASSIUM CHLORIDE TABS 20 MEQ TABLET.ER (FP) PO SCH (09:27)
[2019-03-03] MEDS: TAMSULOSIN HCL 0.4 MG CAP PO SCH (09:27)
[2019-03-03] MEDS: HYDROCORTISONE SOD SUCCINATE 100 MG/2 ML VIAL IVPUSH SCH ×2 (09:28→22:18)
--- NOTE | 2019-03-03 09:57 | PN ---
Progress Note (short form) - Note Progress Note: s/p PCN chills resolved c/o pain at the PCN site Vital Signs Period Temp Pulse Resp BP Sys/Gifford Pulse Ox Last 24 Hr 98.1 F-98.6 F 81-101 17-30 109-160/57-100 96-97 cor-rrr lungs clear abd soft,nt +right PCN ext no edema CBC, BMP 03/03/19 06:35 03/03/19 06:35 Microbiology 02/28/19 18:30 Urine - Urine Nephrostomy Tube Left Urine Culture - Final NO GROWTH OBTAINED 02/28/19 02:08 Urine - Urine Clean Catch Urine Culture - Final Escherichia Coli 02/28/19 02:08 Blood - Peripheral Venous Blood Culture - Final Escherichia Coli 02/28/19 02:05 Blood - Peripheral Venous Blood Culture - Final Escherichia Coli Current Medications Acetaminophen (Tylenol -) 650 mg PO Q6H PRN PRN Reason: Fever Or Pain Last Admin: 03/03/19 09:27 Dose: 650 mg Al Hydroxide/Mg Hydroxide (Mylanta Oral Suspension -) 30 ml PO Q6H PRN PRN Reason: DYSPEPSIA Albuterol Sulfate (Ventolin 0.083% Nebulizer Soln -) 1 amp NEB QID PRN PRN Reason: WHEEZING Last Admin: 03/01/19 07:30 Dose: 1 amp Hydrocortisone Sodium Succinate (Solu-Cortef -) 25 mg IVPUSH BID [facility] Last Admin: 03/03/19 09:28 Dose: 25 mg Cefazolin Sodium/Dextrose (Ancef 2 Gm Premixed Ivpb -) 2 gm in 50 mls @ 100 mls /hr IVPB Q8H-IV [facility] Last Admin: 03/03/19 09:30 Dose: 100 mls/hr Ketorolac Tromethamine (Toradol Injection -) 15 mg IVPUSH Q6H PRN PRN Reason: PAIN LEVEL 7 - 10 Stop: 03/08/19 09:23 Ondansetron HCl (Zofran Injection) 4 mg IVPUSH Q6H PRN PRN Reason: NAUSEA AND/OR VOMITING Last Admin: 03/02/19 08:01 Dose: 4 mg Potassium Chloride (K-Dur -) 20 meq PO DAILY [facility] Last Admin: 03/03/19 09:27 Dose: 20 meq Ranitidine HCl (Zantac -) 150 mg PO BID [facility] Tamsulosin HCl (Flomax -) 0.4 mg PO DAILY@0830 [facility] Last Admin: 03/03/19 09:27 Dose: 0.4 mg a/p sepsis ecoli bacteremia secondary to obstructive uropathy/ecoli uti s/p PCN now off pressors thrombocytopenia- most likely secondary to sepsis, improving renal function improved continue cefazolin day #3 antibiotics f/u cultures wbc should trend down as steroids are tapered Problem List - Problems (1) Sepsis Code(s): A41.9 - SEPSIS, UNSPECIFIED ORGANISM (2) Obstructive uropathy Code(s): N13.9 - OBSTRUCTIVE AND REFLUX UROPATHY, UNSPECIFIED (3) Hypokalemia Code(s): E87.6 - HYPOKALEMIA
--- NOTE | 2019-03-03 11:40 | PN ---
Teaching Attending Note Name of Resident: Mary Ramirez ATTENDING PHYSICIAN STATEMENT I saw and evaluated the patient. I reviewed the resident's note and discussed the case with the resident. I agree with the resident's findings and plan as documented. SUBJECTIVE:c/o pain. staes only relieved with IV tylenol and not po. admits to feeling overall weak but does feel better than on arrival. denies Cp, SOB, fever , chills, N/V/C/D OBJECTIVE: Last Vital Signs Temp Pulse Resp BP Pulse Ox 98.6 F 92 H 20 159/67 97 03/03/19 08:00 03/03/19 10:00 03/03/19 10:00 03/03/19 10:00 03/03/19 09:00 General NAD CV S1 S2 RRR no murmur/rub/gallop Lungs CTA B/l no wheezing/rales/rhonchi Abdomen soft NT/ND +PCN with clear urine Extremities no pedal edema ASSESSMENT AND PLAN: 53 year old female with history of Asthma, presented to ED with abdominal pain, mostly R sided with reported myalgia/nausea/vomiting. 1. Septic Shock secondary to Acute Pyelonephritis and Ecoli Bacteremia- afebrile , leukocytosis slight uptrend may be due to steroids. will titrate them down. repeat Bcx sent. on cefazolin day 3. plan for stent placement on monday 03/05. s /p L nephrostomy tube placement 03/01. f/u Cx. Urology and ID on board. will adjust increase tylenol dosing and add toradol for pain relief. avoid narcotics 2. VICKI sec to obstructive uropathy versus ATN due to hypotension - resolved with IV hydration and pressor support. 3. Thrombocytopenia, likely myelosuppressive due to sepsis +/- consumptive due to elevated temperature - will monitor. 4. Asthma- no evidence of acute exacerbation - Albuterol PRN 5. Hypokalemia -resolved 6. Iron deficiency Anemia - does not appear acute. Iron Sat 3. Will need to obtain Colonoscopy hx and refer to GI as out-patient. 7. Troponinemia- secondary to demand ischemia due to septic shock. TnI max 0.18. would benefit from ischemia eval as outpatient. Cardio on board 8. DVT Px - SCDs. Heparin held due to Thrombocytopenia. 9. can transfer to med-surg 10. LYRIC when medically optimized The care of this patient involved high complexity decision making to prevent further life threatening deterioration of the patient's condition and/or to evaluate & treat vital organ system(s) failure or risk of failure. 36 minutes
--- NOTE | 2019-03-03 11:52 | PN ---
Physical Exam: SUBJECTIVE: Patient seen and examined at bedside. pt complains of pain around nephrostomy site. OBJECTIVE: Vital Signs Period Temp Pulse Resp BP Sys/Gifford Pulse Ox Last 24 Hr 98.1 F-98.6 F 81-101 17-25 109-159/57-100 96-97 GENERAL: The patient is awake, alert, and fully oriented, in no acute distress. LUNGS: Breath sounds equal, clear to auscultation bilaterally, no wheezes, no crackles, no accessory muscle use. HEART: Regular rate and rhythm, S1, S2 without murmur, rub or gallop. ABDOMEN: Soft, nontender, nondistended, normoactive bowel sounds, no guarding EXTREMITIES: 2+ pulses, warm, well-perfused, no edema. SKIN: Warm, dry, normal turgor, no rashes or lesions noted Laboratory Results - last 24 hr 03/02/19 03/03/19 03/03/19 05:40 06:35 06:35 WBC 18.9 H RBC 3.62 Hgb 10.1 L Hct 30.8 L MCV 85.2 MCH 28.0 MCHC 32.9 RDW 15.1 Plt Count 107 L D MPV 8.9 Sodium 143 145 Potassium 3.5 3.6 Chloride 114 H 112 H Carbon Dioxide 23 27 Anion Gap 6 L 6 L BUN 20.0 H 11.0 Creatinine 0.6 0.5 L Est GFR (CKD-EPI)AfAm 118.93 126.28 Est GFR (CKD-EPI)NonAf 102.61 108.96 Random Glucose 99 83 Calcium 8.0 L 8.3 L Creatine Kinase 223 H Creatine Kinase Index 0.5 CK-MB (CK-2) 1.3 Troponin I 0.09 H Current Medications Acetaminophen (Tylenol -) 975 mg PO Q6H PRN PRN Reason: Fever Or Pain Al Hydroxide/Mg Hydroxide (Mylanta Oral Suspension -) 30 ml PO Q6H PRN PRN Reason: DYSPEPSIA Albuterol Sulfate (Ventolin 0.083% Nebulizer Soln -) 1 amp NEB QID PRN PRN Reason: WHEEZING Last Admin: 03/01/19 07:30 Dose: 1 amp Hydrocortisone Sodium Succinate (Solu-Cortef -) 25 mg IVPUSH BID IBETH Last Admin: 03/03/19 09:28 Dose: 25 mg Cefazolin Sodium/Dextrose (Ancef 2 Gm Premixed Ivpb -) 2 gm in 50 mls @ 100 mls /hr IVPB Q8H-IV [facility] Last Admin: 03/03/19 09:30 Dose: 100 mls/hr Ketorolac Tromethamine (Toradol Injection -) 15 mg IVPUSH Q6H PRN PRN Reason: PAIN LEVEL 7 - 10 Stop: 03/08/19 09:23 Ondansetron HCl (Zofran Injection) 4 mg IVPUSH Q6H PRN PRN Reason: NAUSEA AND/OR VOMITING Last Admin: 03/02/19 08:01 Dose: 4 mg Potassium Chloride (K-Dur -) 20 meq PO DAILY [facility] Last Admin: 03/03/19 09:27 Dose: 20 meq Ranitidine HCl (Zantac -) 150 mg PO BID [facility] Tamsulosin HCl (Flomax -) 0.4 mg PO DAILY@0830 [facility] Last Admin: 03/03/19 09:27 Dose: 0.[address] Abdomen/ Pelvis: Impression: There is an 8 x 6.5 mm obstructing stone at or just proximal to the left uteropelvic junction with mild to moderate left hydronephrosis and significant perinephritic stranding with a small amount of perinephric fluid. The rest of the left ureter appears unremarkable. 4.5 mm nonobstructing right renal lower pole stone. 1.4 cm low-attenuation density in the right hepatic lobe , posteriorly likely representing a cyst. A preliminary report was forwarded by the [facility], [facility] [employer] ASSESSMENT/PLAN: 53 yo F PMH of Asthma, hypokalemia, and prior UTIs presented to ED with sudden onset abdominal pain and body aches. pt is admitted with pyelonephritis. during hospital course, pt developed septic shock requiring ICU monitoring and pressor support. Septic Shock 2/2 Pyelonephritis -febrile, tachycardic -femoral line pulled out by pt overnight, BP has remained stable. continue to monitor -Lactate downtrending 4.8 ->1.8 -Vanc and Zosyn given at the ED -s/p merrem x 2 days, switched to cefazolin day 3 -Urine culture and blood culture growing Ecoli, sensitivities reviewed -awaiting rpt b cx Left nephrolithiasis -CTAP: moderate left hydronephrosis due to a 7mm proximal UPJ stone with probable ruptured calyx. -Urology (Dr Landeros) recs appreciated -c/w Flomax 0.4mg daily -c/w IVF hydration -pain control with Tylenol -pt scheduled for stent on Friday VICKI likely 2/2 postrenal obstruction -improving -Cr 0.6 -avoid nephrotoxic agents such as NSAIDs -encourage po hydration Hypokalemia -baseline at 3.0, pt states she has hx of this -c/w KCl 20mg daily Thrombocytopenia -likely 2/2 myelosuppression of sepsis -continue to monitor Asthma -albuterol neb prn F/E/N -HypoK, repleted -Routine bmp monitoring -regular diet DVT ppx -SCDs 2/2 thrombocytopenia Disposition -full code, continue to monitor until medically optimized Visit type - Emergency Visit Emergency Visit: No - New Patient This patient is new to me today: No - Critical Care Critical Care patient: No - Discharge Referral Referred to [facility] Med P.C.: No ATTENDING PHYSICIAN STATEMENT I saw and evaluated the patient. I reviewed the resident's note and discussed the case with the resident. I agree with the resident's findings and plan as documented. SUBJECTIVE: OBJECTIVE: ASSESSMENT AND PLAN:
--- NOTE | 2019-03-03 11:52 | PN ---
Teaching Attending Note Name of Resident: Ale Monahan ATTENDING PHYSICIAN STATEMENT I saw and evaluated the patient. I reviewed the resident's note and discussed the case with the resident. I agree with the resident's findings and plan as documented. SUBJECTIVE: Pt seen and examined in the ICU. Remains off pressors. Feels better today. No fevers recorded. OBJECTIVE: Vital Signs Period Temp Pulse Resp BP Sys/Gifford Pulse Ox Last 24 Hr 98.1 F-98.6 F 81-101 17-25 109-159/57-100 96-97 Intake & Output 02/28/19 03/01/19 03/02/19 03/03/19 23:59 23:59 23:59 23:59 Intake Total 1940 1670 1240 150 Output Total 280 1100 1000 550 Balance 1660 570 240 -400 Weight 93 kg 92.986 kg Gen: NAD at rest Heart: RRR Lung: decreased breath sounds at the bases Abd: soft, nontender Ext: no edema CBC, BMP 03/03/19 06:35 03/03/19 06:35 Active Medications Acetaminophen (Tylenol -) 975 mg PO Q6H PRN PRN Reason: Fever Or Pain Al Hydroxide/Mg Hydroxide (Mylanta Oral Suspension -) 30 ml PO Q6H PRN PRN Reason: DYSPEPSIA Albuterol Sulfate (Ventolin 0.083% Nebulizer Soln -) 1 amp NEB QID PRN PRN Reason: WHEEZING Last Admin: 03/01/19 07:30 Dose: 1 amp Hydrocortisone Sodium Succinate (Solu-Cortef -) 25 mg IVPUSH BID IBETH Last Admin: 03/03/19 09:28 Dose: 25 mg Cefazolin Sodium/Dextrose (Ancef 2 Gm Premixed Ivpb -) 2 gm in 50 mls @ 100 mls /hr IVPB Q8H-IV IBETH Last Admin: 03/03/19 09:30 Dose: 100 mls/hr Ketorolac Tromethamine (Toradol Injection -) 15 mg IVPUSH Q6H PRN PRN Reason: PAIN LEVEL 7 - 10 Stop: 03/08/19 09:23 Ondansetron HCl (Zofran Injection) 4 mg IVPUSH Q6H PRN PRN Reason: NAUSEA AND/OR VOMITING Last Admin: 03/02/19 08:01 Dose: 4 mg Potassium Chloride (K-Dur -) 20 meq PO DAILY [facility] Last Admin: 03/03/19 09:27 Dose: 20 meq Ranitidine HCl (Zantac -) 150 mg PO BID [facility] Tamsulosin HCl (Flomax -) 0.4 mg PO DAILY@0830 [facility] Last Admin: 03/03/19 09:27 Dose: 0.4 mg ASSESSMENT AND PLAN: Left Pyelonephritis/Left Ureteral Stone s/p Left Nephrostomy tube placement Septic Shock resolving Thrombocytopenia Acute Kidney Injury improving Lactic Acidosis resolved +Troponins likely Demand Ischemia Asthma - continue antibiotics per ID - taper off hydrocortisone - monitor urine output, creatinine - pain control - monitor platelets - PO as tolerated - DVT prophylaxis - can monitor on floor
--- NOTE | 2019-03-03 12:58 | PN ---
Progress Note, Physician History of Present Illness: Pt seen and examined at bedside. She is awake and alert. She denies shortness of breath. Her bp is improved. - Current Medication List Current Medications: Active Medications Acetaminophen (Tylenol -) 975 mg PO Q6H PRN PRN Reason: Fever Or Pain Al Hydroxide/Mg Hydroxide (Mylanta Oral Suspension -) 30 ml PO Q6H PRN PRN Reason: DYSPEPSIA Albuterol Sulfate (Ventolin 0.083% Nebulizer Soln -) 1 amp NEB QID PRN PRN Reason: WHEEZING Last Admin: 03/01/19 07:30 Dose: 1 amp Hydrocortisone Sodium Succinate (Solu-Cortef -) 25 mg IVPUSH BID IBETH Last Admin: 03/03/19 09:28 Dose: 25 mg Cefazolin Sodium/Dextrose (Ancef 2 Gm Premixed Ivpb -) 2 gm in 50 mls @ 100 mls /hr IVPB Q8H-IV IBETH Last Admin: 03/03/19 09:30 Dose: 100 mls/hr Ketorolac Tromethamine (Toradol Injection -) 15 mg IVPUSH Q6H PRN PRN Reason: PAIN LEVEL 7 - 10 Stop: 03/08/19 09:23 Ondansetron HCl (Zofran Injection) 4 mg IVPUSH Q6H PRN PRN Reason: NAUSEA AND/OR VOMITING Last Admin: 03/02/19 08:01 Dose: 4 mg Potassium Chloride (K-Dur -) 20 meq PO DAILY [facility] Last Admin: 03/03/19 09:27 Dose: 20 meq Ranitidine HCl (Zantac -) 150 mg PO BID [facility] Tamsulosin HCl (Flomax -) 0.4 mg PO DAILY@0830 [facility] Last Admin: 03/03/19 09:27 Dose: 0.4 mg - Objective Vital Signs: Vital Signs Temperature 98.6 F 03/03/19 08:00 Pulse Rate 87 03/03/19 12:00 Respiratory Rate 21 H 03/03/19 12:00 Blood Pressure 157/72 03/03/19 12:00 O2 Sat by Pulse Oximetry (%) 97 03/03/19 09:00 Constitutional: Yes: Calm Eyes: Yes: Conjunctiva Clear HENT: Yes: Atraumatic Neck: Yes: Supple Cardiovascular: Yes: S1, S2 Respiratory: Yes: CTA Bilaterally Gastrointestinal: Yes: Soft, Abdomen, Obese Genitourinary: Yes: Other (nephrostomy) Musculoskeletal: Yes: WNL Edema: No Neurological: Yes: Oriented Psychiatric: Yes: Oriented Labs: CBC, BMP 03/03/19 06:35 03/03/19 06:35 INR, PTT INR 1.23 (0.83-1.09) H 02/28/19 15:15 Problem List - Problems (1) VICKI (acute kidney injury) Code(s): N17.9 - ACUTE KIDNEY FAILURE, UNSPECIFIED (2) Nephrolithiasis Code(s): N20.0 - CALCULUS OF KIDNEY (3) Sepsis Code(s): A41.9 - SEPSIS, UNSPECIFIED ORGANISM Assessment/Plan Current Medications Generic Name Dose Route Start Last Admin Trade Name Freq PRN Reason Stop Dose Admin Acetaminophen 975 mg 03/03/19 10:55 Tylenol - PO Q6H PRN Fever Or Pain Al Hydroxide/Mg Hydroxide 30 ml 03/03/19 08:33 Mylanta Oral Suspension - PO Q6H PRN DYSPEPSIA Albuterol Sulfate 1 amp 02/28/19 06:13 03/01/19 07:30 Ventolin 0.083% Nebulizer Soln - NEB 1 amp QID PRN Administration WHEEZING Hydrocortisone Sodium Succinate 25 mg 03/03/19 08:14 03/03/19 09:28 Solu-Cortef - IVPUSH 25 mg BID IBETH Administration Cefazolin Sodium/Dextrose 2 gm in 50 mls @ 100 mls/hr 03/02/19 18:00 09:30 Ancef 2 Gm Premixed Ivpb - IVPB 100 mls/hr Q8H-IV IBETH Administration Ketorolac Tromethamine 15 mg 03/03/19 09:24 Toradol Injection - IVPUSH 03/08/19 09:23 Q6H PRN PAIN LEVEL 7 - 10 Ondansetron HCl 4 mg 02/28/19 06:16 03/02/19 08:01 Zofran Injection IVPUSH 4 mg Q6H PRN Administration NAUSEA AND/OR VOMITING Potassium Chloride 20 meq 02/28/19 10:00 03/03/19 09:27 K-Dur - PO 20 meq DAILY IB[facility] Administration Ranitidine HCl 150 mg 03/03/19 22:00 Zantac - PO BID IBETH Tamsulosin HCl 0.4 mg 02/28/19 08:30 03/03/19 09:27 Flomax - PO 0.4 mg DAILY@0830 IB[facility] Administration Impression 1. VICKI 2. lactic acidosis 3. left hydronephrosis 4. nephrolithiasis 5. bactermia 6. sepsis 7. hypotension 8. hypokalemia 9. hx svt 10. asthma Plan - renal function is improving - monitor urine output - can stop fluids - will need urology follow up - stone workup as outpt - will follow PRN - hypotension and sepsis contributed to VICKI Dr Alegria
--- NOTE | 2019-03-03 13:54 | PN ---
Physical Exam: SUBJECTIVE: Patient seen and examined at bedside. Is doing much better, no acute events overnight. States everything is fine but her pain levels are increasing. OBJECTIVE: Vital Signs Period Temp Pulse Resp BP Sys/Gifford Pulse Ox Last 24 Hr 98.1 F-98.6 F 81-101 17-25 109-159/57-100 96-97 GENERAL: The patient is awake, alert, and fully oriented, in no acute distress. HEAD: Normal with no signs of trauma. EYES: PERRL, extraocular movements intact, sclera anicteric, conjunctiva clear. No ptosis. ENT: Ears normal, nares patent, oropharynx clear without exudates, moist mucous membranes. NECK: Trachea midline, full range of motion, supple. LUNGS: Breath sounds equal, clear to auscultation bilaterally, no wheezes, no crackles, no accessory muscle use. HEART: Regular rate and rhythm, S1, S2 without murmur, rub or gallop. ABDOMEN: Soft, Nt/ND, normoactive bowel sounds, no guarding, posterior R nephrostomy tube noted with clear-yellow urine. EXTREMITIES: 2+ pulses, warm, well-perfused, no edema. NEUROLOGICAL: Cranial nerves II through XII grossly intact. Normal speech, gait not observed. PSYCH: Normal mood, normal affect. SKIN: Warm, dry, normal turgor, no rashes or lesions noted, previous R femoral TLC site without any bleeding C/D/I Laboratory Results - last 24 hr 03/02/19 03/03/19 03/03/19 05:40 06:35 06:35 WBC 18.9 H RBC 3.62 Hgb 10.1 L Hct 30.8 L MCV 85.2 MCH 28.0 MCHC 32.9 RDW 15.1 Plt Count 107 L D MPV 8.9 Sodium 143 145 Potassium 3.5 3.6 Chloride 114 H 112 H Carbon Dioxide 23 27 Anion Gap 6 L 6 L BUN 20.0 H 11.0 Creatinine 0.6 0.5 L Est GFR (CKD-EPI)AfAm 118.93 126.28 Est GFR (CKD-EPI)NonAf 102.61 108.96 Random Glucose 99 83 Calcium 8.0 L 8.3 L Creatine Kinase 223 H Creatine Kinase Index 0.5 CK-MB (CK-2) 1.3 Troponin I 0.09 H Active Medications Generic Name Dose Route Start Last Admin Trade Name Freq PRN Reason Stop Dose Admin Acetaminophen 975 mg 03/03/19 10:55 Tylenol - PO Q6H PRN Fever Or Pain Al Hydroxide/Mg Hydroxide 30 ml 03/03/19 08:33 Mylanta Oral Suspension - PO Q6H PRN DYSPEPSIA Albuterol Sulfate 1 amp 02/28/19 06:13 03/01/19 07:30 Ventolin 0.083% Nebulizer Soln - NEB 1 amp QID PRN Administration WHEEZING Hydrocortisone Sodium Succinate 25 mg 03/03/19 08:14 03/03/19 09:28 Solu-Cortef - IVPUSH 25 mg BID IBETH Administration Cefazolin Sodium/Dextrose 2 gm in 50 mls @ 100 mls/hr 03/02/19 18:00 09:30 Ancef 2 Gm Premixed Ivpb - IVPB 100 mls/hr Q8H-IV IBETH Administration Ketorolac Tromethamine 15 mg 03/03/19 09:24 Toradol Injection - IVPUSH 03/08/19 09:23 Q6H PRN PAIN LEVEL 7 - 10 Ondansetron HCl 4 mg 02/28/19 06:16 03/02/19 08:01 Zofran Injection IVPUSH 4 mg Q6H PRN Administration NAUSEA AND/OR VOMITING Potassium Chloride 20 meq 02/28/19 10:00 03/03/19 09:27 K-Dur - PO 20 meq DAILY IB[facility] Administration Ranitidine HCl 150 mg 03/03/19 22:00 Zantac - PO BID IB[facility] Tamsulosin HCl 0.4 mg 02/28/19 08:30 03/03/19 09:27 Flomax - PO 0.4 mg DAILY@0830 IB[facility] Administration ASSESSMENT/PLAN: 53 year old female with past medical history of asthma, hypokalemia and prior urinary tract infections presents to the hospital for sudden onset diffuse, 10/ 10 abdominal pain with associated left flank pain for 1 day and admitted for septic shock 2/2 pyelonephritis. Septic Shock 2/2 to pyelonephritis Suspected adrenal insufficiency Thrombocytopenia Leukocytosis Acute kidney injury Asthma, not in exacerbation Hypokalemia (chronic; improved) Lactic acidosis (resolved) Neurologic - awake alert - no intervention at this time Cardiovascular -Pt off pressors currently maintaining MAPs -Will decrease Cortef to 25mg BID IVP today with plan to wean to 20mg IVP daily tomorrow() and then plan to STOP Cortef Friday. -Cardiology consulted, appreciate recommendations -Resume ASA -Start statin -Obtain echo to assess LV fn -recommend outpatient workup of atypical chest pain Pulmonary - patient saturating well and breathing comfortably on RA Renal -Pt currently has draining nephrostomy tube; urology on board -Monitor fever trend and leukocytosis -Cr improved today (0.5) with normalizing BP and improved infection control -Avoid nephrotoxic agents currently -Avoid NSAIDs -Continue Cefazolin 2 gm in 50 mls @ 100 mls/hr IVP q8h (day 4 of abx, was previously getting meropenem) -Repeat blood cx -F/U with urology as outpatient ID -Blood and urine cultures growing E.Coli sensitive to all antibiotics except ampicillin and ampicillin sulbactam -Continue Cefazolin 2 gm in 50 mls @ 100 mls/hr IVP q8h -Thrombocytopenia attributed to sepsis, however will monitor for continued decline; if stabilizes will resume AC -ID following appreciate recommendations FEN: Fluids: PRN, encourage PO Electrolyte abnormalities: Patient with hx of hypokalemia, monitor for hypokalemia, replete as needed Nutrition: Advanced as tolerated (no eggs or peanuts) PPX: DVT - SCDs only due to thrombocytopenia, resume AC if thrombocytopenia is stablized/ resolved GI - Zantac 150mg qdaily Dispo: Patient stable for transfer to [facility] today. Case discussed with Dr. Grace Visit type - Emergency Visit Emergency Visit: Yes ED Registration Date: 02/28/19 Care time: The patient presented to the Emergency Department on the above date and was hospitalized for further evaluation of their emergent condition. - New Patient This patient is new to me today: No - Critical Care Critical Care patient: Yes Total Critical Care Time (in minutes): 41 Critical Care Statement: The care of this patient involved high complexity decision making to prevent further life threatening deterioration of the patient 's condition and/or to evaluate & treat vital organ system(s) failure or risk of failure. ATTENDING PHYSICIAN STATEMENT I saw and evaluated the patient. I reviewed the resident's note and discussed the case with the resident. I agree with the resident's findings and plan as documented. SUBJECTIVE: OBJECTIVE: ASSESSMENT AND PLAN:
[2019-03-03] MEDS ORDERED: PT OWN MED DRAWER 7, Y5N ONE ×2 (14:25→21:57)
[2019-03-03] MEDS ORDERED: BENZOCAINE/MENTH/CETYLPYRD CL 1 EACH LOZENGE MM PRN (21:56)
[2019-03-03] MEDS ORDERED: MICONAZOLE NITRATE 200 MG VAGINAL SUPPOSITORY PV SCH (22:00)
[2019-03-03] MEDS: RANITIDINE HCL 150 MG TABLET (FP) PO SCH (22:18)
[2019-03-03] MEDS ORDERED: guaiFENesin/D-METHORPHAN HB 10 ML UNIT-DOSE CUPS PO PRN (22:50)
[2019-03-04] MEDS: CEFAZOLIN 2 GM/D5W 2 GM/50 ML ML IVPB SCH ×3 (01:24→17:10)
[2019-03-04 06:32] LABS: HEMATOCRIT 32.9 % (32.4-45.2); HEMOGLOBIN 10.9 GM/dL (10.7-15.3); MCH 28.3 pg (25.7-33.7); MCHC 33.2 g/dl (32.0-36.0); MEAN CELL VOLUME 85.4 fl (80-96); MEAN PLT VOLUME 8.2 fl (7.5-11.1); PLATELET COUNT 141 K/MM3 (134-434); RBC 3.85 M/mm3 (3.60-5.2); RDW 14.9 % (11.6-15.6); WHITE BLOOD COUNT 18.1 K/mm3 (4.0-10.0)
[2019-03-04] MEDS: ACETAMINOPHEN 325 MG TABLET (FP) PO PRN ×3 (06:53→23:36)
[2019-03-04 06:57] LABS: BLOOD UREA NITROGEN 17.5 mg/dL (7-18); CALCIUM 8.4 mg/dL (8.5-10.1); CREATININE 0.5 mg/dL (0.55-1.3); POTASSIUM 3.4 mmol/L (3.5-5.1)
[2019-03-04] MEDS: POTASSIUM CHLORIDE TABS 20 MEQ TABLET.ER (FP) PO SCH (09:31)
[2019-03-04] MEDS: TAMSULOSIN HCL 0.4 MG CAP PO SCH (09:31)
[2019-03-04] MEDS: RANITIDINE HCL 150 MG TABLET (FP) PO SCH ×2 (09:32→21:49)
[2019-03-04] MEDS ORDERED: POTASSIUM CHLORIDE TABS 20 MEQ TABLET.ER (FP) PO ONE (09:57)
[2019-03-04] MEDS ORDERED: HYDROCORTISONE SOD SUCCINATE 100 MG/2 ML VIAL IVPUSH SCH (10:00)
[2019-03-04] MEDS: ALBUTEROL SO4 0.083% IH SOL 2.5 MG/3 ML VIAL.NEB. NEB PRN ×2 (11:00→16:30)
[2019-03-04 11:03] LABS: MAGNESIUM 2.3 mg/dL (1.8-2.4); PHOSPHOROUS 3.6 mg/dL (2.5-4.9)
--- NOTE | 2019-03-04 11:40 | PN ---
Teaching Attending Note Name of Resident: Alexander Chino ATTENDING PHYSICIAN STATEMENT I saw and evaluated the patient. I reviewed the resident's note and discussed the case with the resident. I agree with the resident's findings and plan as documented. SUBJECTIVE: Pt seen and examined in the ICU. c/o nonproductive cough. No fevers recorded. For ureteral stent placement tomorrow. OBJECTIVE: Vital Signs Period Temp Pulse Resp BP Sys/Gifford Pulse Ox Last 24 Hr 98.2 F-98.6 F 81-100 16-30 129-160/72-100 98-98 Intake & Output 03/01/19 03/02/19 03/03/19 03/04/19 23:59 23:59 23:59 23:59 Intake Total 1670 1240 630 350 Output Total 1100 1000 2000 600 Balance 570 240 -1370 -250 Weight 92.986 kg 92.986 kg Gen: NAD at rest Heart: RRR Lung: decreased breath sounds at the bases Abd: soft, nontender Ext: no edema CBC, BMP 03/04/19 05:30 03/04/19 05:30 Active Medications Acetaminophen (Tylenol -) 975 mg PO Q6H PRN PRN Reason: Fever Or Pain Last Admin: 03/04/19 06:53 Dose: 975 mg Al Hydroxide/Mg Hydroxide (Mylanta Oral Suspension -) 30 ml PO Q6H PRN PRN Reason: DYSPEPSIA Albuterol Sulfate (Ventolin 0.083% Nebulizer Soln -) 1 amp NEB QID PRN PRN Reason: WHEEZING Last Admin: 03/01/19 07:30 Dose: 1 amp Atorvastatin Calcium (Lipitor -) 20 mg PO HS IBETH Benzocaine/Menthol (Cepacol Lozenge -) 1 each MM PRN PRN PRN Reason: SORE THROAT Guaifenesin (Robitussin Dm -) 10 ml PO Q6H PRN PRN Reason: COUGH Hydrocortisone Sodium Succinate (Solu-Cortef -) 25 mg IVPUSH DAILY [facility] Last Admin: 03/04/19 09:51 Dose: 25 mg Cefazolin Sodium/Dextrose (Ancef 2 Gm Premixed Ivpb -) 2 gm in 50 mls @ 100 mls /hr IVPB Q8H-IV IBETH Last Admin: 03/04/19 09:30 Dose: 100 mls/hr Ketorolac Tromethamine (Toradol Injection -) 15 mg IVPUSH Q6H PRN PRN Reason: PAIN LEVEL 7 - 10 Stop: 03/08/19 09:23 Last Admin: 03/04/19 09:52 Dose: 15 mg Miconazole Nitrate (Miconazole 3) 200 mg PV HS [facility] Stop: 03/05/19 22:01 Last Admin: 03/03/19 22:18 Dose: 200 mg Ondansetron HCl (Zofran Injection) 4 mg IVPUSH Q6H PRN PRN Reason: NAUSEA AND/OR VOMITING Last Admin: 03/02/19 08:01 Dose: 4 mg Potassium Chloride (K-Dur -) 20 meq PO DAILY [facility] Last Admin: 03/04/19 09:31 Dose: 20 meq Ranitidine HCl (Zantac -) 150 mg PO BID [facility] Last Admin: 03/04/19 09:32 Dose: 150 mg Tamsulosin HCl (Flomax -) 0.4 mg PO DAILY@0830 [facility] Last Admin: 03/04/19 09:31 Dose: 0.4 mg ASSESSMENT AND PLAN: Left Pyelonephritis/Left Ureteral Stone s/p Left Nephrostomy tube placement Septic Shock resolving Thrombocytopenia Acute Kidney Injury improving Lactic Acidosis resolved +Troponins likely Demand Ischemia Asthma - for ureteral stent placement - continue antibiotics per ID - taper off hydrocortisone - monitor urine output, creatinine - pain control - monitor platelets - PO as tolerated - DVT prophylaxis - can monitor on floor
--- NOTE | 2019-03-04 11:40 | EKG ---
Test Reason : Blood Pressure : / mmHG Vent. Rate : 119 BPM Atrial Rate : 119 BPM P-R Int : 136 ms QRS Dur : 084 ms QT Int : 226 ms P-R-T Axes : 052 058 266 degrees QTc Int : 317 ms [address]US [address]YCARDIA MARKED ST ABNORMALITY, POSSIBLE INFERIOR SUBENDOCARDIAL INJURY ABNORMAL ECG WHEN COMPARED WITH ECG OF 28-FEB-2019 02:14, T WAVE INVERSION MORE EVIDENT IN LATERAL LEADS Confirmed by KIZZY PEREZ, SAGAR ([id number]) on 03/04/2019 11:40:01 AM Referred By: Confirmed By:SAGAR DURAND MD
--- NOTE | 2019-03-04 11:55 | PN ---
Physical Exam: SUBJECTIVE: Patient seen and examined at the bedside. States that she continues to have some pain at the nephrostomy site. Denies cp, sob, abd pain, n/v/c/d, headaches, dizziness, weakness, numbness, tingling, fevers, chills. Will go for L ureteral stent tomorrow and f/u with outpatient urology. OBJECTIVE: Vital Signs Period Temp Pulse Resp BP Sys/Gifford Pulse Ox Last 24 Hr 98.1 F-98.6 F 81-100 16-30 129-177/72-109 98-98 GENERAL: The patient is awake, alert, and fully oriented, in no acute distress. HEAD: Normal with no signs of trauma. EYES: PERRL, extraocular movements intact, sclera anicteric, conjunctiva clear. NECK: Trachea midline, full range of motion, supple. LUNGS: Breath sounds equal, clear to auscultation bilaterally, no wheezes, no crackles, no accessory muscle use. HEART: Regular rate and rhythm, S1, S2 without murmur, rub. ABDOMEN: Soft, Nt/ND, normoactive bowel sounds, no guarding, posterior R nephrostomy tube noted with clear-yellow urine. EXTREMITIES: 2+ pulses, warm, well-perfused, no edema. NEUROLOGICAL: Cranial nerves II through XII grossly intact. Muscle strength intact bilaterally upper and lower extremities. PSYCH: Normal mood, normal affect. SKIN: Warm, dry, normal turgor, no rashes or lesions noted, previous R femoral TLC site without any bleeding C/D/I Laboratory Results - last 24 hr 03/04/19 03/04/19 05:30 05:30 WBC 18.1 H RBC 3.85 Hgb 10.9 Hct 32.9 MCV 85.4 MCH 28.3 MCHC 33.2 RDW 14.9 Plt Count 141 D MPV 8.2 Sodium 145 Potassium 3.4 L Chloride 110 H Carbon Dioxide 27 Anion Gap 8 BUN 17.5 Creatinine 0.5 L Est GFR (CKD-EPI)AfAm 126.28 Est GFR (CKD-EPI)NonAf 108.96 Random Glucose 99 Calcium 8.4 L Phosphorus 3.6 Magnesium 2.3 Active Medications Generic Name Dose Route Start Last Admin Trade Name Freq PRN Reason Stop Dose Admin Acetaminophen 975 mg 03/03/19 10:55 03/04/19 06:53 Tylenol - PO 975 mg Q6H PRN Administration Fever Or Pain Al Hydroxide/Mg Hydroxide 30 ml 03/03/19 08:33 Mylanta Oral Suspension - PO Q6H PRN DYSPEPSIA Albuterol Sulfate 1 amp 02/28/19 06:13 03/01/19 07:30 Ventolin 0.083% Nebulizer Soln - NEB 1 amp QID PRN Administration WHEEZING Atorvastatin Calcium 20 mg 03/04/19 22:00 Lipitor - PO HS IBETH Benzocaine/Menthol 1 each 03/03/19 21:56 Cepacol Lozenge - MM PRN PRN SORE THROAT Guaifenesin 10 ml 03/03/19 22:50 Robitussin Dm - PO Q6H PRN COUGH Hydrocortisone Sodium Succinate 25 mg 03/04/19 10:00 03/04/19 09:51 Solu-Cortef - IVPUSH 25 mg DAILY IBETH Administration Cefazolin Sodium/Dextrose 2 gm in 50 mls @ 100 mls/hr 03/02/19 18:00 09:30 Ancef 2 Gm Premixed Ivpb - IVPB 100 mls/hr Q8H-IV IBETH Administration Ketorolac Tromethamine 15 mg 03/03/19 09:24 03/04/19 09:52 Toradol Injection - IVPUSH 03/08/19 09:23 15 mg Q6H PRN Administration PAIN LEVEL 7 - 10 Miconazole Nitrate 200 mg 03/03/19 22:00 03/03/19 22:18 Miconazole 3 PV 03/05/19 22:01 200 mg HS IBETH Administration Ondansetron HCl 4 mg 02/28/19 06:16 03/02/19 08:01 Zofran Injection IVPUSH 4 mg Q6H PRN Administration NAUSEA AND/OR VOMITING Potassium Chloride 20 meq 02/28/19 10:00 03/04/19 09:31 K-Dur - PO 20 meq DAILY IBETH Administration Ranitidine HCl 150 mg 03/03/19 22:00 03/04/19 09:32 Zantac - PO 150 mg BID IBETH Administration Tamsulosin HCl 0.4 mg 02/28/19 08:30 03/04/19 09:31 Flomax - PO 0.4 mg DAILY@0830 IBETH Administration ASSESSMENT/PLAN: Juju Rubio is a 53 year old female with past medical history of asthma, hypokalemia and prior urinary tract infections presents to the hospital for sudden onset diffuse, 10/10 abdominal pain with associated left flank pain for 1 day and admitted for septic shock 2/2 pyelonephritis. Septic Shock 2/2 to pyelonephritis Suspected adrenal insufficiency Thrombocytopenia Leukocytosis Acute kidney injury Asthma, not in exacerbation Hypokalemia (chronic; improved) Lactic acidosis (resolved) Neurologic - awake alert - no intervention at this time - toradol and tylenol for pain Cardiovascular -Pt off pressors currently maintaining MAPs -decreased solu-cortef to 25mg today, last dose, d/c -Cardiology consulted, appreciate recommendations -Resume ASA after procedure -Started Lipitor 20mg -Echo showing EF 55-60%, no gross abnormalities -recommend outpatient workup of atypical chest pain -bilateral LE duplex negative for DVT, noted + guzman cysts in L popliteal fossa Pulmonary - patient saturating well and breathing comfortably on RA - albuterol nebs as needed Renal -Pt currently has draining nephrostomy tube; urology on board -Monitor fever trend and leukocytosis -Cr improved today (0.5) with normalizing BP and improved infection control -Avoid nephrotoxic agents currently -Avoid NSAIDs -Continue Cefazolin 2 gm in 50 mls @ 100 mls/hr IVP q8h (day 5 of abx, was previously getting meropenem) -Repeat blood cx -will go for ureteral stent placement Friday -flomax 0.4 daily ID -Blood and urine cultures growing E.Coli sensitive to all antibiotics except ampicillin and ampicillin sulbactam -Continue Cefazolin 2 gm in 50 mls @ 100 mls/hr IVP q8h -Thrombocytopenia attributed to sepsis, improved -ID following appreciate recommendations FEN: Fluids: no standing fluids Electrolyte abnormalities: Patient with hx of hypokalemia, monitor for hypokalemia, replete as needed Nutrition: regular diet, NPO after midnight PPX: DVT - SCDs prior to procedure, can start heparin s/p ureteral stent placement GI - Zantac 150mg qdaily Code - full code Dispo - stable for transfer to Med-surg CASE DISCUSSED WITH DR HELENE ROY DO - PGY-1 Visit type - Emergency Visit Emergency Visit: No - New Patient This patient is new to me today: No - Critical Care Critical Care patient: No
--- NOTE | 2019-03-04 12:21 | PN ---
Teaching Attending Note Name of Resident: Mary Ramirez ATTENDING PHYSICIAN STATEMENT I saw and evaluated the patient. I reviewed the resident's note and discussed the case with the resident. I agree with the resident's findings and plan as documented. SUBJECTIVE:states pain is much improved. having non productive cough. denies Cp , SOB, fever, chills, N/V/C/d OBJECTIVE: Last Vital Signs Temp Pulse Resp BP Pulse Ox 98.1 F 96 H 24 H 177/104 H 98 03/04/19 10:00 03/04/19 10:00 03/04/19 10:00 03/04/19 10:00 03/03/19 21:00 General NAD CV S1 S2 RRR no murmur/rub/gallop Lungs CTA B/l no wheezing/rales/rhonchi Abdomen soft NT/ND +PCN with clear urine Extremities no pedal edema ASSESSMENT AND PLAN: 53 year old female with history of Asthma, presented to ED with abdominal pain, mostly R sided with reported myalgia/nausea/vomiting. 1. Septic Shock secondary to Acute Pyelonephritis and Ecoli Bacteremia- afebrile , leukocytosis slowly trending down. titrate steroids. repeat Bcx neg. on cefazolin day 4. plan for stent placement on monday 03/05. s/p L nephrostomy tube placement 03/01. f/u Cx. Urology and ID on board. pain control 2. VICKI sec to obstructive uropathy versus ATN due to hypotension - resolved with IV hydration and pressor support. 3. Thrombocytopenia, likely myelosuppressive due to sepsis +/- consumptive due to elevated temperature - will monitor. 4. Asthma- no evidence of acute exacerbation -cough non productive. CXR clear afebrile.will give incentive spirometer and cepacol prn. Albuterol PRN 5. Hypokalemia -resolved 6. Iron deficiency Anemia - does not appear acute. Iron Sat 3. Will need to obtain Colonoscopy hx and refer to GI as out-patient. 7. Troponinemia- secondary to demand ischemia due to septic shock. TnI max 0.18. would benefit from ischemia eval as outpatient. Cardio on board 8. DVT Px - SCDs. Heparin held due to Thrombocytopenia. 9. can transfer to med-surg 10. LYRIC when medically optimized The care of this patient involved high complexity decision making to prevent further life threatening deterioration of the patient's condition and/or to evaluate & treat vital organ system(s) failure or risk of failure. 36 minutes
--- NOTE | 2019-03-04 14:00 | PN ---
Physical Exam: SUBJECTIVE: Patient seen and examined at bedside. pt states that she is improving. She states that she has had a dry cough throughout the night. OBJECTIVE: Vital Signs Period Temp Pulse Resp BP Sys/Gifford Pulse Ox Last 24 Hr 98.1 F-98.6 F 81-100 16-30 129-177/84-109 98-98 GENERAL: The patient is awake, alert, and fully oriented, in no acute distress. LUNGS: Breath sounds equal, clear to auscultation bilaterally, no wheezes, no crackles, no accessory muscle use. HEART: Regular rate and rhythm, S1, S2 without murmur, rub or gallop. ABDOMEN: Soft, nontender, nondistended, normoactive bowel sounds, no guarding, no rebound. L nephrostomy tube draining appropriately EXTREMITIES: 2+ pulses, warm, well-perfused, no edema. SKIN: Warm, dry, normal turgor, no rashes or lesions noted Laboratory Results - last 24 hr 03/04/19 03/04/19 05:30 05:30 WBC 18.1 H RBC 3.85 Hgb 10.9 Hct 32.9 MCV 85.4 MCH 28.3 MCHC 33.2 RDW 14.9 Plt Count 141 D MPV 8.2 Sodium 145 Potassium 3.4 L Chloride 110 H Carbon Dioxide 27 Anion Gap 8 BUN 17.5 Creatinine 0.5 L Est GFR (CKD-EPI)AfAm 126.28 Est GFR (CKD-EPI)NonAf 108.96 Random Glucose 99 Calcium 8.4 L Phosphorus 3.6 Magnesium 2.3 Current Medications Acetaminophen (Tylenol -) 975 mg PO Q6H PRN PRN Reason: Fever Or Pain Last Admin: 03/04/19 06:53 Dose: 975 mg Al Hydroxide/Mg Hydroxide (Mylanta Oral Suspension -) 30 ml PO Q6H PRN PRN Reason: DYSPEPSIA Albuterol Sulfate (Ventolin 0.083% Nebulizer Soln -) 1 amp NEB QID PRN PRN Reason: WHEEZING Last Admin: 03/01/19 07:30 Dose: 1 amp Atorvastatin Calcium (Lipitor -) 20 mg PO HS IBETH Benzocaine/Menthol (Cepacol Lozenge -) 1 each MM PRN PRN PRN Reason: SORE THROAT Guaifenesin (Robitussin Dm -) 10 ml PO Q6H PRN PRN Reason: COUGH Hydrocortisone Sodium Succinate (Solu-Cortef -) 25 mg IVPUSH DAILY [facility] Last Admin: 03/04/19 09:51 Dose: 25 mg Cefazolin Sodium/Dextrose (Ancef 2 Gm Premixed Ivpb -) 2 gm in 50 mls @ 100 mls /hr IVPB Q8H-IV [facility] Last Admin: 03/04/19 09:30 Dose: 100 mls/hr Ketorolac Tromethamine (Toradol Injection -) 15 mg IVPUSH Q6H PRN PRN Reason: PAIN LEVEL 7 - 10 Stop: 03/08/19 09:23 Last Admin: 03/04/19 09:52 Dose: 15 mg Miconazole Nitrate (Miconazole 3) 200 mg PV HS [facility] Stop: 03/05/19 22:01 Last Admin: 03/03/19 22:18 Dose: 200 mg Ondansetron HCl (Zofran Injection) 4 mg IVPUSH Q6H PRN PRN Reason: NAUSEA AND/OR VOMITING Last Admin: 03/02/19 08:01 Dose: 4 mg Potassium Chloride (K-Dur -) 20 meq PO DAILY [facility] Last Admin: 03/04/19 09:31 Dose: 20 meq Ranitidine HCl (Zantac -) 150 mg PO BID [facility] Last Admin: 03/04/19 09:32 Dose: 150 mg Tamsulosin HCl (Flomax -) 0.4 mg PO DAILY@0830 [facility] Last Admin: 03/04/19 09:31 Dose: 0.[address] Abdomen/ Pelvis: Impression: There is an 8 x 6.5 mm obstructing stone at or just proximal to the left uteropelvic junction with mild to moderate left hydronephrosis and significant perinephritic stranding with a small amount of perinephric fluid. The rest of the left ureter appears unremarkable. 4.5 mm nonobstructing right renal lower pole stone. 1.4 cm low-attenuation density in the right hepatic lobe , posteriorly likely representing a cyst. A preliminary report was forwarded by the [facility] service, IMAGING CLERICAL TRANSCRIBER ASSESSMENT/PLAN: 53 yo F PMH of Asthma, hypokalemia, and prior UTIs presented to ED with sudden onset abdominal pain and body aches. pt is admitted with pyelonephritis. during hospital course, pt developed septic shock requiring ICU monitoring and pressor support. Septic Shock 2/2 Pyelonephritis -febrile, tachycardic on admission. pt has been afebrile > 48 hours -femoral line pulled out by pt. BP has remained stable. continue to monitor -Lactate downtrending 4.8 ->1.8 -Vanc and Zosyn given at the ED -s/p merrem x 2 days, switched to cefazolin day 4 -Urine culture and blood culture growing Ecoli, sensitivities reviewed - rpt b cx negative Left nephrolithiasis -CTAP: moderate left hydronephrosis due to a 7mm proximal UPJ stone with probable ruptured calyx. -Urology (Dr Landeros) recs appreciated -c/w Flomax 0.4mg daily -c/w IVF hydration -pain control with Tylenol -pt scheduled for stent on Friday VICKI likely 2/2 postrenal obstruction -improved -avoid nephrotoxic agents such as NSAIDs -encourage po hydration Hypokalemia -baseline at 3.0, pt states she has hx of this -c/w KCl 20mg daily Thrombocytopenia -likely 2/2 myelosuppression of sepsis -continue to monitor -improving Asthma -albuterol neb prn -pt has dry cough -encourage ICS -robitussin and throat lozenges F/E/N -HypoK, repleted -Routine bmp monitoring -regular diet DVT ppx -SCDs Disposition -full code, continue to monitor until medically optimized Visit type - Emergency Visit Emergency Visit: No - New Patient This patient is new to me today: No - Critical Care Critical Care patient: No - Discharge Referral Referred to [facility] Med P.C.: No ATTENDING PHYSICIAN STATEMENT I saw and evaluated the patient. I reviewed the resident's note and discussed the case with the resident. I agree with the resident's findings and plan as documented. SUBJECTIVE: OBJECTIVE: ASSESSMENT AND PLAN:
--- NOTE | 2019-03-04 18:34 | PN ---
Progress Note (short form) - Note Progress Note: s/p PCN bilateral flank pain dry cough constipation no bm for 3 days Vital Signs Period Temp Pulse Resp BP Sys/Gifford Pulse Ox Last 24 Hr 98.0 F-98.4 F 82-99 19-25 145-177/88-109 98-98 cor-rrr lungs bibasilar crackles abd soft,nt +PCN with clear urine ext trace edema CBC, BMP 03/04/19 05:30 03/04/19 05:30 Microbiology 03/02/19 16:00 Blood - Peripheral Venous Blood Culture - Preliminary NO GROWTH OBTAINED AFTER 48 HOURS, INCUBATION TO CONTINUE FOR 3 DAYS. 03/02/19 15:00 Blood - Peripheral Venous Blood Culture - Preliminary NO GROWTH OBTAINED AFTER 48 HOURS, INCUBATION TO CONTINUE FOR 3 DAYS. 02/28/19 18:30 Urine - Urine Nephrostomy Tube Left Urine Culture - Final NO GROWTH OBTAINED 02/28/19 02:08 Urine - Urine Clean Catch Urine Culture - Final Escherichia Coli 02/28/19 02:08 Blood - Peripheral Venous Blood Culture - Final Escherichia Coli 02/28/19 02:05 Blood - Peripheral Venous Blood Culture - Final Escherichia Coli Current Medications Acetaminophen (Tylenol -) 975 mg PO Q6H PRN PRN Reason: Fever Or Pain Last Admin: 03/04/19 15:33 Dose: 975 mg Al Hydroxide/Mg Hydroxide (Mylanta Oral Suspension -) 30 ml PO Q6H PRN PRN Reason: DYSPEPSIA Albuterol Sulfate (Ventolin 0.083% Nebulizer Soln -) 1 amp NEB QID PRN PRN Reason: WHEEZING Last Admin: 03/04/19 11:00 Dose: 1 amp Atorvastatin Calcium (Lipitor -) 20 mg PO HS [facility] Benzocaine/Menthol (Cepacol Lozenge -) 1 each MM PRN PRN PRN Reason: SORE THROAT Guaifenesin (Robitussin Dm -) 10 ml PO Q6H PRN PRN Reason: COUGH Hydrocortisone Sodium Succinate (Solu-Cortef -) 25 mg IVPUSH DAILY IBETH Last Admin: 03/04/19 09:51 Dose: 25 mg Cefazolin Sodium/Dextrose (Ancef 2 Gm Premixed Ivpb -) 2 gm in 50 mls @ 100 mls /hr IVPB Q8H-IV IBETH Last Admin: 03/04/19 17:10 Dose: 100 mls/hr Ketorolac Tromethamine (Toradol Injection -) 15 mg IVPUSH Q6H PRN PRN Reason: PAIN LEVEL 7 - 10 Stop: 03/08/19 09:23 Last Admin: 03/04/19 09:52 Dose: 15 mg Miconazole Nitrate (Miconazole 3) 200 mg PV HS [facility] Stop: 03/05/19 22:01 Last Admin: 03/03/19 22:18 Dose: 200 mg Ondansetron HCl (Zofran Injection) 4 mg IVPUSH Q6H PRN PRN Reason: NAUSEA AND/OR VOMITING Last Admin: 03/02/19 08:01 Dose: 4 mg Potassium Chloride (K-Dur -) 20 meq PO DAILY [facility] Last Admin: 03/04/19 09:31 Dose: 20 meq Ranitidine HCl (Zantac -) 150 mg PO BID [facility] Last Admin: 03/04/19 09:32 Dose: 150 mg Tamsulosin HCl (Flomax -) 0.4 mg PO DAILY@0830 [facility] Last Admin: 03/04/19 09:31 Dose: 0.4 mg a/p sepsis ecoli bacteremia secondary to obstructive uropathy/ecoli uti s/p PCN now off pressors thrombocytopenia- most likely secondary to sepsis, improving renal function improved continue cefazolin day #4 antibiotics-plan 10 days would like to continue iv at least 7 days before switch to po (?levaquin) persistent leukocytosis repeat cxray treat constipation Problem List - Problems (1) Sepsis Code(s): A41.9 - SEPSIS, UNSPECIFIED ORGANISM (2) Obstructive uropathy Code(s): N13.9 - OBSTRUCTIVE AND REFLUX UROPATHY, UNSPECIFIED (3) Hypokalemia Code(s): E87.6 - HYPOKALEMIA
[2019-03-04] MEDS ORDERED: BENZOCAINE/MENTH/CETYLPYRD CL 1 EACH LOZENGE MM PRN (19:50)
[2019-03-04] MEDS ORDERED: MAG HYDROX/AL HYDROX/SIMETH 30 ML UNIT-DOSE CUP PO PRN (19:50)
[2019-03-04] MEDS ORDERED: ONDANSETRON 4 MG/2 ML VIAL IVPUSH PRN (19:50)
[2019-03-04] MEDS ORDERED: guaiFENesin/D-METHORPHAN HB 10 ML UNIT-DOSE CUPS PO PRN (19:50)
[2019-03-04] MEDS: ATORVASTATIN CA 20 MG TABLET (FP) PO SCH (21:49)
[2019-03-04] MEDS ORDERED: ATORVASTATIN CA 20 MG TABLET (FP) PO SCH (22:00)
[2019-03-04] MEDS: MICONAZOLE NITRATE 200 MG VAGINAL SUPPOSITORY PV SCH (23:45)
[2019-03-05] MEDS: ALBUTEROL SO4 0.083% IH SOL 2.5 MG/3 ML VIAL.NEB. NEB PRN ×2 (01:00→12:46)
[2019-03-05] MEDS: KETOROLAC TROMETHAMINE 15 MG/ML VIAL IVPUSH PRN ×2 (01:39→07:02)
[2019-03-05] MEDS: CEFAZOLIN 2 GM/D5W 2 GM/50 ML ML IVPB SCH ×3 (01:39→18:18)
[2019-03-05 09:40] LABS: HEMATOCRIT 34.1 % (32.4-45.2); HEMOGLOBIN 11.4 GM/dL (10.7-15.3); MCH 28.4 pg (25.7-33.7); MCHC 33.5 g/dl (32.0-36.0); MEAN CELL VOLUME 84.8 fl (80-96); MEAN PLT VOLUME 7.7 fl (7.5-11.1); PLATELET COUNT 187 K/MM3 (134-434); RBC 4.03 M/mm3 (3.60-5.2); RDW 14.7 % (11.6-15.6); WHITE BLOOD COUNT 11.1 K/mm3 (4.0-10.0)
[2019-03-05 09:47] LABS: INR 0.98 (0.83-1.09); PROTHROMBIN TIME (PATIENT) 11.6 SEC (9.7-13.0)
[2019-03-05 09:50] LABS: ACTIVATED PTT 25.6 SECONDS (25.2-36.5)
[2019-03-05] MEDS ORDERED: HYDROCORTISONE SOD SUCCINATE 100 MG/2 ML VIAL IVPUSH SCH (10:00)
[2019-03-05 10:05] LABS: BLOOD UREA NITROGEN 16.6 mg/dL (7-18); CALCIUM 8.5 mg/dL (8.5-10.1); CREATININE 0.5 mg/dL (0.55-1.3); MAGNESIUM 1.9 mg/dL (1.8-2.4); PHOSPHOROUS 4.7 mg/dL (2.5-4.9); POTASSIUM 3.2 mmol/L (3.5-5.1)
[2019-03-05] MEDS ORDERED: PT OWN MED DRAWER 7, Y5N ONE (11:06)
[2019-03-05] MEDS: RANITIDINE HCL 150 MG TABLET (FP) PO SCH ×2 (11:11→21:41)
[2019-03-05] MEDS: TAMSULOSIN HCL 0.4 MG CAP PO SCH (11:12)
[2019-03-05] MEDS: POTASSIUM CHLORIDE TABS 20 MEQ TABLET.ER (FP) PO SCH ×3 (11:12→21:39)
--- NOTE | 2019-03-05 11:23 | PN ---
Teaching Attending Note Name of Resident: Mary Ramirez ATTENDING PHYSICIAN STATEMENT I saw and evaluated the patient. I reviewed the resident's note and discussed the case with the resident. I agree with the resident's findings and plan as documented. SUBJECTIVE:asymptomatic. denies Cp, SOB, fever, chills, N/V/C/d OBJECTIVE: Last Vital Signs Temp Pulse Resp BP Pulse Ox 97.8 F 80 20 132/70 98 03/05/19 05:50 03/05/19 05:50 03/05/19 05:50 03/05/19 05:50 03/04/19 21:00 General NAD CV S1 S2 RRR no murmur/rub/gallop Lungs CTA B/l no wheezing/rales/rhonchi Abdomen soft NT/ND +PCN with clear urine Extremities no pedal edema ASSESSMENT AND PLAN: 53 year old female with history of Asthma, presented to ED with abdominal pain, mostly R sided with reported myalgia/nausea/vomiting. 1. Septic Shock secondary to Acute Pyelonephritis and Ecoli Bacteremia- afebrile , leukocytosis slowly trending down. titrate steroids. repeat Bcx neg. on cefazolin day 5. will need a total of 7 days of IV abx and then switch to po. NPO for stent placement today. s/p L nephrostomy tube placement 03/01. f/u Cx. Urology and ID on board. pain control 2. VICKI sec to obstructive uropathy versus ATN due to hypotension - resolved with IV hydration and pressor support. 3. Thrombocytopenia, likely myelosuppressive due to sepsis +/- consumptive due to elevated temperature - resolved 4. Asthma- no evidence of acute exacerbation -cough non productive. CXR clear afebrile.will give incentive spirometer and cepacol prn. Albuterol PRN 5. Hypokalemia -kcl 6. Iron deficiency Anemia - does not appear acute. Iron Sat 3. Will need to obtain Colonoscopy hx and refer to GI as out-patient. 7. Troponinemia- secondary to demand ischemia due to septic shock. TnI max 0.18. would benefit from ischemia eval as outpatient. Cardio on board 8. DVT Px - SCDs. Heparin held due to Thrombocytopenia. 9. dispo planning
[2019-03-05] MEDS ORDERED: POTASSIUM CHLORIDE TABS 20 MEQ TABLET.ER (FP) PO ONE ×2 (12:15→15:55)
[2019-03-05] MEDS: KCL 10 MEQ IVPB 10 MEQ/100 ML INFUS.BAG IVPB SCH ×3 (12:50→16:45)
[2019-03-05] MEDS ORDERED: POTASSIUM CHLORIDE 10 MEQ in SODIUM CHLORIDE 1,000 ML IVPB SCH (13:45)
[2019-03-05] MEDS ORDERED: SODIUM CHLORIDE 0.9%/KCL 20 MEQ/1,000 ML INFUS.BAG IV SCH (13:45)
[2019-03-05] MEDS ORDERED: SODIUM CHLORIDE 1,000 ML IV SCH (14:00)
--- NOTE | 2019-03-05 14:18 | PN ---
Physical Exam: SUBJECTIVE: Patient seen and examined at bedside. pt is anxious about having stent procedure. pt states she is feeling SOB. OBJECTIVE: Vital Signs Period Temp Pulse Resp BP Sys/Gifford Pulse Ox Last 24 Hr 97.8 F-98.7 F 80-99 18- 132-155/70-101 98 GENERAL: The patient is awake, alert, and fully oriented, in no acute distress. NECK: Trachea midline, full range of motion, supple. LUNGS: Breath sounds equal, clear to auscultation bilaterally, no wheezes, no crackles, no accessory muscle use. HEART: Regular rate and rhythm, S1, S2 without murmur, rub or gallop. ABDOMEN: Soft, nontender, nondistended, normoactive bowel sounds, no guarding. pt has L nephrostomy tube draining appropriately EXTREMITIES: 2+ pulses, warm, well-perfused, no edema. SKIN: Warm, dry, normal turgor, no rashes or lesions noted Laboratory Results - last 24 hr 03/05/19 03/05/19 03/05/19 08:52 08:52 08:52 WBC 11.1 H RBC 4.03 Hgb 11.4 Hct 34.1 MCV 84.8 MCH 28.4 MCHC 33.5 RDW 14.7 Plt Count 187 D MPV 7.7 PT with INR 11.60 INR 0.98 PTT (Actin FS) 25.6 Sodium 143 Potassium 3.2 L Chloride 108 H Carbon Dioxide 27 Anion Gap 8 BUN 16.6 Creatinine 0.5 L Est GFR (CKD-EPI)AfAm 126.28 Est GFR (CKD-EPI)NonAf 108.96 Random Glucose 79 Calcium 8.5 Phosphorus 4.7 Magnesium 1.9 Blood Type Antibody Screen Current Medications Acetaminophen (Tylenol -) 975 mg PO Q6H PRN PRN Reason: Fever Or Pain Last Admin: 03/04/19 23:36 Dose: 975 mg Al Hydroxide/Mg Hydroxide (Mylanta Oral Suspension -) 30 ml PO Q6H PRN PRN Reason: DYSPEPSIA Albuterol Sulfate (Ventolin 0.083% Nebulizer Soln -) 1 amp NEB QID PRN PRN Reason: WHEEZING Last Admin: 03/05/19 12:46 Dose: 1 amp Atorvastatin Calcium (Lipitor -) 20 mg PO HS IBETH Last Admin: 03/04/19 21:49 Dose: 20 mg Benzocaine/Menthol (Cepacol Lozenge -) 1 each MM PRN PRN PRN Reason: SORE THROAT Guaifenesin (Robitussin Dm -) 10 ml PO Q6H PRN PRN Reason: COUGH Cefazolin Sodium/Dextrose (Ancef 2 Gm Premixed Ivpb -) 2 gm in 50 mls @ 100 mls /hr IVPB Q8H-IV [facility] Last Admin: 03/05/19 11:12 Dose: 100 mls/hr Potassium Chloride (Potassium Chloride 10 Meq Premix Ivpb -) 10 meq in 100 mls @ 100 mls/hr IVPB Q60M [facility] Stop: 03/05/19 15:44 Last Admin: 03/05/19 12:50 Dose: 100 mls/hr Sodium Chloride (Normal Saline -) 1,000 mls @ 100 mls/hr IV ASDIR [facility] Last Admin: 03/05/19 14:09 Dose: Not Given Ketorolac Tromethamine (Toradol Injection -) 15 mg IVPUSH Q6H PRN PRN Reason: PAIN LEVEL 7 - 10 Stop: 03/08/19 09:23 Last Admin: 03/05/19 07:02 Dose: 15 mg Miconazole Nitrate (Miconazole 3) 200 mg PV HS [facility] Stop: 03/05/19 22:01 Last Admin: 03/04/19 23:45 Dose: 200 mg Ondansetron HCl (Zofran Injection) 4 mg IVPUSH Q6H PRN PRN Reason: NAUSEA AND/OR VOMITING Potassium Chloride (K-Dur -) 20 meq PO DAILY [facility] Last Admin: 03/05/19 11:17 Dose: Not Given Ranitidine HCl (Zantac -) 150 mg PO BID [facility] Last Admin: 03/05/19 11:11 Dose: 150 mg Tamsulosin HCl (Flomax -) 0.4 mg PO DAILY@0830 [facility] Last Admin: 03/05/19 11:12 Dose: 0.[address] Abdomen/ Pelvis: Impression: There is an 8 x 6.5 mm obstructing stone at or just proximal to the left uteropelvic junction with mild to moderate left hydronephrosis and significant perinephritic stranding with a small amount of perinephric fluid. The rest of the left ureter appears unremarkable. 4.5 mm nonobstructing right renal lower pole stone. 1.4 cm low-attenuation density in the right hepatic lobe , posteriorly likely representing a cyst. [facility], IMAGING ENDOCRINOLOGY NURSE ASSESSMENT/PLAN: 53 yo F PMH of Asthma, hypokalemia, and prior UTIs presented to ED with sudden onset abdominal pain and body aches. pt is admitted with pyelonephritis. during hospital course, pt developed septic shock requiring ICU monitoring and pressor support. Septic Shock 2/2 Pyelonephritis -febrile, tachycardic on admission. pt has been afebrile -femoral line pulled out by pt. BP has remained stable. continue to monitor -Lactate downtrending 4.8 ->1.8 -Vanc and Zosyn given at the ED -s/p merrem x 2 days, switched to cefazolin day 5. Pt should continue IV for at least 7 days. Consider switching to PO (flouroquinolone) after 7 days. -Urine culture and blood culture growing Ecoli, sensitivities reviewed - rpt b cx negative Left nephrolithiasis -CTAP: moderate left hydronephrosis due to a 7mm proximal UPJ stone with probable ruptured calyx. -Urology (Dr Landeros) recs appreciated -c/w Flomax 0.4mg daily -c/w IVF hydration -pain control with Tylenol -pt scheduled for stent Friday as patient doesnt feel comfortable for procedure today. VICKI likely 2/2 postrenal obstruction -improved -avoid nephrotoxic agents such as NSAIDs -encourage po hydration Hypokalemia -baseline at 3.0, pt states she has hx of this -c/w KCl 20mg daily Thrombocytopenia -likely 2/2 myelosuppression of sepsis -continue to monitor -improving Asthma -albuterol neb prn -pt has dry cough -encourage ICS -robitussin and throat lozenges F/E/N -HypoK, repleted -Routine bmp monitoring -regular diet DVT ppx -SCDs Disposition -full code, continue to monitor until medically optimized Visit type - Emergency Visit Emergency Visit: No - New Patient This patient is new to me today: No - Critical Care Critical Care patient: No - Discharge Referral Referred to [facility] Med P.C.: No ATTENDING PHYSICIAN STATEMENT I saw and evaluated the patient. I reviewed the resident's note and discussed the case with the resident. I agree with the resident's findings and plan as documented. SUBJECTIVE: OBJECTIVE: ASSESSMENT AND PLAN:
[2019-03-05] MEDS ORDERED: MAGNESIUM OXIDE 400 MG TABLET (FP) PO ONE (15:49)
[2019-03-05] MEDS ORDERED: DOCUSATE SODIUM 100 MG CAPSULE (FP) PO SCH (16:00)
[2019-03-05] MEDS ORDERED: DOCUSATE SODIUM 100 MG CAPSULE (FP) PO ONE (16:00)
[2019-03-05] MEDS: ACETAMINOPHEN 325 MG TABLET (FP) PO PRN ×2 (16:12→22:01)
--- NOTE | 2019-03-05 17:01 | PN ---
Progress Note, Physician History of Present Illness: Pt seen and examined at bedside. She is awake and alert. She denies shortness of breath. - Current Medication List Current Medications: Active Medications Acetaminophen (Tylenol -) 975 mg PO Q6H PRN PRN Reason: Fever Or Pain Last Admin: 03/05/19 16:12 Dose: 975 mg Al Hydroxide/Mg Hydroxide (Mylanta Oral Suspension -) 30 ml PO Q6H PRN PRN Reason: DYSPEPSIA Albuterol Sulfate (Ventolin 0.083% Nebulizer Soln -) 1 amp NEB QID PRN PRN Reason: WHEEZING Last Admin: 03/05/19 12:46 Dose: 1 amp Atorvastatin Calcium (Lipitor -) 20 mg PO HS [facility] Last Admin: 03/04/19 21:49 Dose: 20 mg Benzocaine/Menthol (Cepacol Lozenge -) 1 each MM PRN PRN PRN Reason: SORE THROAT Guaifenesin (Robitussin Dm -) 10 ml PO Q6H PRN PRN Reason: COUGH Cefazolin Sodium/Dextrose (Ancef 2 Gm Premixed Ivpb -) 2 gm in 50 mls @ 100 mls /hr IVPB Q8H-IV [facility] Last Admin: 03/05/19 11:12 Dose: 100 mls/hr Sodium Chloride (Normal Saline -) 1,000 mls @ 100 mls/hr IV ASDIR [facility] Last Admin: 03/05/19 14:09 Dose: Not Given Ketorolac Tromethamine (Toradol Injection -) 15 mg IVPUSH Q6H PRN PRN Reason: PAIN LEVEL 7 - 10 Stop: 03/08/19 09:23 Last Admin: 03/05/19 07:02 Dose: 15 mg Miconazole Nitrate (Miconazole 3) 200 mg PV HS [facility] Stop: 03/05/19 22:01 Last Admin: 03/04/19 23:45 Dose: 200 mg Ondansetron HCl (Zofran Injection) 4 mg IVPUSH Q6H PRN PRN Reason: NAUSEA AND/OR VOMITING Potassium Chloride (K-Dur -) 20 meq PO [facility] Ranitidine HCl (Zantac -) 150 mg PO BID [facility] Last Admin: 03/05/19 11:11 Dose: 150 mg Tamsulosin HCl (Flomax -) 0.4 mg PO DAILY@0830 [facility] Last Admin: 03/05/19 11:12 Dose: 0.4 mg - Objective Vital Signs: Vital Signs Temperature 98.6 F 03/05/19 16:42 Pulse Rate 112 H 03/05/19 16:42 Respiratory Rate 20 03/05/19 16:42 Blood Pressure 165/84 03/05/19 16:42 O2 Sat by Pulse Oximetry (%) 98 03/04/19 21:00 Constitutional: Yes: Calm Eyes: Yes: Conjunctiva Clear HENT: Yes: Atraumatic Neck: Yes: Supple Cardiovascular: Yes: S1, S2 Respiratory: Yes: CTA Bilaterally Gastrointestinal: Yes: Soft Genitourinary: Yes: Other (nephrostomy) Musculoskeletal: Yes: WNL Edema: No Neurological: Yes: Oriented Psychiatric: Yes: Oriented Labs: CBC, BMP 03/05/19 08:52 03/05/19 08:52 INR, PTT INR 0.98 (0.83-1.09) 03/05/19 08:52 Problem List - Problems (1) VICKI (acute kidney injury) Code(s): N17.9 - ACUTE KIDNEY FAILURE, UNSPECIFIED (2) Nephrolithiasis Code(s): N20.0 - CALCULUS OF KIDNEY (3) Sepsis Code(s): A41.9 - SEPSIS, UNSPECIFIED ORGANISM Assessment/Plan Current Medications Generic Name Dose Route Start Last Admin Trade Name Freq PRN Reason Stop Dose Admin Acetaminophen 975 mg 03/04/19 19:50 03/05/19 16:12 Tylenol - PO 975 mg Q6H PRN Administration Fever Or Pain Al Hydroxide/Mg Hydroxide 30 ml 03/04/19 19:50 Mylanta Oral Suspension - PO Q6H PRN DYSPEPSIA Albuterol Sulfate 1 amp 03/04/19 19:50 03/05/19 12:46 Ventolin 0.083% Nebulizer Soln - NEB 1 amp QID PRN Administration WHEEZING Atorvastatin Calcium 20 mg 03/04/19 22:00 03/04/19 21:49 Lipitor - PO 20 mg HS [facility] Administration Benzocaine/Menthol 1 each 03/04/19 19:50 Cepacol Lozenge - MM PRN PRN SORE THROAT Guaifenesin 10 ml 03/04/19 19:50 Robitussin Dm - PO Q6H PRN COUGH Cefazolin Sodium/Dextrose 2 gm in 50 mls @ 100 mls/hr 03/05/19 02:00 11:12 Ancef 2 Gm Premixed Ivpb - IVPB 100 mls/hr Q8H-IV [facility] Administration Sodium Chloride 1,000 mls @ 100 mls/hr 03/05/19 14:00 03/05/19 14:09 Normal Saline - IV Not Given ASDIR [facility] Ketorolac Tromethamine 15 mg 03/04/19 19:50 03/05/19 07:02 Toradol Injection - IVPUSH 03/08/19 09:23 15 mg Q6H PRN Administration PAIN LEVEL 7 - 10 Miconazole Nitrate 200 mg 03/04/19 22:00 03/04/19 23:45 Miconazole 3 PV 03/05/19 22:01 200 mg HS [facility] Administration Ondansetron HCl 4 mg 03/04/19 19:50 Zofran Injection IVPUSH Q6H PRN NAUSEA AND/OR VOMITING Potassium Chloride 20 meq 03/05/19 22:00 K-Dur - PO HS [facility] Ranitidine HCl 150 mg 03/04/19 22:00 03/05/19 11:11 Zantac - PO 150 mg BID [facility] Administration Tamsulosin HCl 0.4 mg 03/05/19 08:30 03/05/19 11:12 Flomax - PO 0.4 mg DAILY@0830 [facility] Administration Impression 1. VICKI 2. lactic acidosis 3. left hydronephrosis 4. nephrolithiasis 5. bactermia 6. sepsis 7. hypotension 8. hypokalemia - chronic 9. hx svt 10. asthma Plan - increase k-dur to 40 qhs - check urine osm, plasma, osm and urine potassium to calc ttkg - mag level stable - monitor bp Dr Alegria
[2019-03-05] MEDS: ATORVASTATIN CA 20 MG TABLET (FP) PO SCH (21:41)
[2019-03-05] MEDS: MICONAZOLE NITRATE 200 MG VAGINAL SUPPOSITORY PV SCH (21:42)
[2019-03-05] MEDS ORDERED: POTASSIUM CHLORIDE TABS 20 MEQ TABLET.ER (FP) PO SCH ×2 (22:00)
[2019-03-06] MEDS: CEFAZOLIN 2 GM/D5W 2 GM/50 ML ML IVPB SCH ×3 (01:13→18:23)
[2019-03-06] MEDS: ALBUTEROL SO4 0.083% IH SOL 2.5 MG/3 ML VIAL.NEB. NEB PRN (01:14)
[2019-03-06] MEDS: KETOROLAC TROMETHAMINE 15 MG/ML VIAL IVPUSH PRN (02:00)
[2019-03-06 07:17] LABS: HEMATOCRIT 34.2 % (32.4-45.2); HEMOGLOBIN 11.6 GM/dL (10.7-15.3); MCH 28.8 pg (25.7-33.7); MEAN CELL VOLUME 84.8 fl (80-96); MEAN PLT VOLUME 7.4 fl (7.5-11.1); PLATELET COUNT 214 K/MM3 (134-434); RBC 4.03 M/mm3 (3.60-5.2); RDW 14.8 % (11.6-15.6); WHITE BLOOD COUNT 9.7 K/mm3 (4.0-10.0)
[2019-03-06 07:33] LABS: BILIRUBIN,TOTAL 0.3 mg/dL (0.2-1); BLOOD UREA NITROGEN 16.2 mg/dL (7-18); CALCIUM 8.5 mg/dL (8.5-10.1); CREATININE 0.6 mg/dL (0.55-1.3); MAGNESIUM 2.1 mg/dL (1.8-2.4); PHOSPHOROUS 4.6 mg/dL (2.5-4.9); POTASSIUM 3.7 mmol/L (3.5-5.1); TOT PROT 5.6 g/dl (6.4-8.2)
--- NOTE | 2019-03-06 08:01 | PN ---
Progress Note (short form) - Note Progress Note: pain controlled with toradol. requesting daily. refused to go for surgery yesterday because her potassium was 3.2 after reassurance that it was safe for surgery. deneis Cp, SOB, fever, chills, N/V/C/D Current Medications Generic Name Dose Route Start Last Admin Trade Name Freq PRN Reason Stop Dose Admin Acetaminophen 975 mg 03/04/19 19:50 03/05/19 22:01 Tylenol - PO 975 mg Q6H PRN Administration Fever Or Pain Al Hydroxide/Mg Hydroxide 30 ml 03/04/19 19:50 Mylanta Oral Suspension - PO Q6H PRN DYSPEPSIA Albuterol Sulfate 1 amp 03/04/19 19:50 03/06/19 01:14 Ventolin 0.083% Nebulizer Soln - NEB 1 amp QID PRN Administration WHEEZING Atorvastatin Calcium 20 mg 03/04/19 22:00 03/05/19 21:41 Lipitor - PO 20 mg HS [facility] Administration Benzocaine/Menthol 1 each 03/04/19 19:50 Cepacol Lozenge - MM PRN PRN SORE THROAT Guaifenesin 10 ml 03/04/19 19:50 Robitussin Dm - PO Q6H PRN COUGH Cefazolin Sodium/Dextrose 2 gm in 50 mls @ 100 mls/hr 03/05/19 02:00 01:13 Ancef 2 Gm Premixed Ivpb - IVPB 100 mls/hr Q8H-IV [facility] Administration Sodium Chloride 1,000 mls @ 100 mls/hr 03/05/19 14:00 03/05/19 14:09 Normal Saline - IV Not Given ASDIR [facility] Ketorolac Tromethamine 15 mg 03/04/19 19:50 03/06/19 02:00 Toradol Injection - IVPUSH 03/08/19 09:23 15 mg Q6H PRN Administration PAIN LEVEL 7 - 10 Ondansetron HCl 4 mg 03/04/19 19:50 Zofran Injection IVPUSH Q6H PRN NAUSEA AND/OR VOMITING Potassium Chloride 40 meq 03/05/19 22:00 03/05/19 21:39 K-Dur - PO Not Given HS [facility] Ranitidine HCl 150 mg 03/04/19 22:00 03/05/19 21:41 Zantac - PO 150 mg BID [facility] Administration Tamsulosin HCl 0.4 mg 03/05/19 08:30 03/05/19 11:12 Flomax - PO 0.4 mg DAILY@0830 [facility] Administration Last Vital Signs Temp Pulse Resp BP Pulse Ox 98.7 F 88 18 142/79 93 L 03/05/19 22:00 03/05/19 22:00 03/05/19 22:00 03/05/19 22:00 03/05/19 21:00 General NAD CV S1 S2 RRR no murmur/rub/gallop Lungs CTA B/l no wheezing/rales/rhonchi Abdomen soft NT/ND +PCN with clear urine Extremities no pedal edema CBCD WBC 9.7 K/mm3 (4.0-10.0) 03/06/19 06:00 RBC 4.03 M/mm3 (3.60-5.2) 03/06/19 06:00 Hgb 11.6 GM/dL (10.7-15.3) 03/06/19 06:00 Hct 34.2 % (32.4-45.2) 03/06/19 06:00 MCV 84.8 fl (80-96) 03/06/19 06:00 MCHC 34.0 g/dl (32.0-36.0) 03/06/19 06:00 RDW 14.8 % (11.6-15.6) 03/06/19 06:00 Plt Count 214 K/MM3 (134-434) 03/06/19 06:00 MPV 7.4 fl (7.5-11.1) L 03/06/19 06:00 CMP Sodium 143 mmol/L (136-145) 03/06/19 06:00 Potassium 3.7 mmol/L (3.5-5.1) 03/06/19 06:00 Chloride 107 mmol/L (98-107) 03/06/19 06:00 Carbon Dioxide 26 mmol/L (21-32) 03/06/19 06:00 Anion Gap 9 MMOL/L (8-16) 03/06/19 06:00 BUN 16.2 mg/dL (7-18) 03/06/19 06:00 Creatinine 0.6 mg/dL (0.55-1.3) 03/06/19 06:00 Random Glucose 82 mg/dL (74-106) 03/06/19 06:00 Calcium 8.5 mg/dL (8.5-10.1) 03/06/19 06:00 Total Bilirubin 0.3 mg/dL (0.2-1) 03/06/19 06:00 AST 25 U/L (15-37) 03/06/19 06:00 ALT 21 U/L (13-61) 03/06/19 06:00 Alkaline Phosphatase 77 U/L (45-117) 03/06/19 06:00 Total Protein 5.6 g/dl (6.4-8.2) L 03/06/19 06:00 Albumin 3.0 g/dl (3.4-5.0) L 03/06/19 06:00 CARDIAC ENZYMES Creatine Kinase 223 U/L (26-192) H 03/02/19 05:40 Troponin I 0.09 ng/ml (0.00-0.05) H 03/02/19 05:40 Microbiology 03/02/19 16:00 Blood Culture - Preliminary Blood - Peripheral Venous NO GROWTH OBTAINED AFTER 72 HOURS, INCUBATION TO CONTINUE FOR 2 DAYS. 03/02/19 15:00 Blood Culture - Preliminary Blood - Peripheral Venous NO GROWTH OBTAINED AFTER 72 HOURS, INCUBATION TO CONTINUE FOR 2 DAYS. ASSESSMENT AND PLAN: 53 year old female with history of Asthma, presented to ED with abdominal pain, mostly R sided with reported myalgia/nausea/vomiting. 1. Septic Shock secondary to Acute Pyelonephritis and Ecoli Bacteremia-s/p L nephrostomy tube placement 03/01. afebrile, leukocytosis slowly trending down. off steroids. repeat Bcx negative. on cefazolin day 6. plan for total of 7 days IV and then can transtion to po. surgery rescheduled for Friday and will remain hospitalized as requiring IV abx. Urology and ID on board. pain control 2. VICKI sec to obstructive uropathy versus ATN due to hypotension - resolved with IV hydration and pressor support. 3. Thrombocytopenia, likely myelosuppressive due to sepsis +/- consumptive due to elevated temperature - resolved 4. Chronic hypokalemia- improved today. home dose of potassium increased to 40meq daily 5. Asthma- no evidence of acute exacerbation -cough non productive. CXR clear afebrile.will give incentive spirometer and cepacol prn. Albuterol PRN 6. Iron deficiency Anemia - does not appear acute. Iron Sat 3. Will need to obtain Colonoscopy hx and refer to GI as out-patient. 7. Troponinemia- secondary to demand ischemia due to septic shock. TnI max 0.18. would benefit from ischemia eval as outpatient. Cardio on board 8. DVT Px - SCDs. Heparin held due to Thrombocytopenia. 9. plan to d/c home after procedure on Friday, 03/08 Visit type - Emergency Visit Emergency Visit: Yes ED Registration Date: 02/28/19 Care time: The patient presented to the Emergency Department on the above date and was hospitalized for further evaluation of their emergent condition. - New Patient This patient is new to me today: No - Critical Care Critical Care patient: No - Discharge Referral Referred to [facility] No
[2019-03-06] MEDS: ACETAMINOPHEN 325 MG TABLET (FP) PO PRN (09:31)
[2019-03-06] MEDS: TAMSULOSIN HCL 0.4 MG CAP PO SCH (09:31)
[2019-03-06] MEDS: RANITIDINE HCL 150 MG TABLET (FP) PO SCH ×2 (09:32→22:08)
--- NOTE | 2019-03-06 12:52 | PN ---
Progress Note (short form) - Note Progress Note: s/p PCN cough has resolved for internalization of stent on Friday Vital Signs Period Temp Pulse Resp BP Sys/Gifford Pulse Ox Last 24 Hr 98.1 F-99.1 F 88-112 18-20 122-165/79-92 93-96 cor-rrr lungs clear abd soft,nt clear urine in PCN ext no edema CBC, BMP 03/06/19 06:00 03/06/19 06:00 Microbiology 03/02/19 16:00 Blood - Peripheral Venous Blood Culture - Preliminary NO GROWTH OBTAINED AFTER 72 HOURS, INCUBATION TO CONTINUE FOR 2 DAYS. 03/02/19 15:00 Blood - Peripheral Venous Blood Culture - Preliminary NO GROWTH OBTAINED AFTER 72 HOURS, INCUBATION TO CONTINUE FOR 2 DAYS. 02/28/19 18:30 Urine - Urine Nephrostomy Tube Left Urine Culture - Final NO GROWTH OBTAINED 02/28/19 02:08 Urine - Urine Clean Catch Urine Culture - Final Escherichia Coli 02/28/19 02:08 Blood - Peripheral Venous Blood Culture - Final Escherichia Coli 02/28/19 02:05 Blood - Peripheral Venous Blood Culture - Final Escherichia Coli Current Medications Acetaminophen (Tylenol -) 975 mg PO Q6H PRN PRN Reason: Fever Or Pain Last Admin: 03/06/19 09:31 Dose: 975 mg Al Hydroxide/Mg Hydroxide (Mylanta Oral Suspension -) 30 ml PO Q6H PRN PRN Reason: DYSPEPSIA Last Admin: 03/06/19 11:47 Dose: 30 ml Albuterol Sulfate (Ventolin 0.083% Nebulizer Soln -) 1 amp NEB QID PRN PRN Reason: WHEEZING Last Admin: 03/06/19 01:14 Dose: 1 amp Atorvastatin Calcium (Lipitor -) 20 mg PO HS [facility] Last Admin: 03/05/19 21:41 Dose: 20 mg Benzocaine/Menthol (Cepacol Lozenge -) 1 each MM PRN PRN PRN Reason: SORE THROAT Guaifenesin (Robitussin Dm -) 10 ml PO Q6H PRN PRN Reason: COUGH Cefazolin Sodium/Dextrose (Ancef 2 Gm Premixed Ivpb -) 2 gm in 50 mls @ 100 mls /hr IVPB Q8H-IV [facility] Last Admin: 03/06/19 09:31 Dose: 100 mls/hr Ketorolac Tromethamine (Toradol Injection -) 15 mg IVPUSH Q6H PRN PRN Reason: PAIN LEVEL 7 - 10 Stop: 03/08/19 09:23 Last Admin: 03/06/19 02:00 Dose: 15 mg Ondansetron HCl (Zofran Injection) 4 mg IVPUSH Q6H PRN PRN Reason: NAUSEA AND/OR VOMITING Potassium Chloride (K-Dur -) 40 meq PO [facility] Last Admin: 03/05/19 21:39 Dose: Not Given Ranitidine HCl (Zantac -) 150 mg PO BID [facility] Last Admin: 03/06/19 09:32 Dose: 150 mg Tamsulosin HCl (Flomax -) 0.4 mg PO DAILY@829 [facility] Last Admin: 03/06/19 09:31 Dose: 0.4 mg a/p sepsis resolved ecoli bacteremia secondary to obstructive uropathy/ecoli uti s/p PCN continue cefazolin day #6 antibiotics- would continue iv cefazolin through the procedure on Friday and transition to po antiibotics after stent placement thanks Problem List - Problems (1) Sepsis Code(s): A41.9 - SEPSIS, UNSPECIFIED ORGANISM (2) Obstructive uropathy Code(s): N13.9 - OBSTRUCTIVE AND REFLUX UROPATHY, UNSPECIFIED (3) Hypokalemia Code(s): E87.6 - HYPOKALEMIA
--- NOTE | 2019-03-06 15:10 | PN ---
Progress Note, Physician History of Present Illness: Pt seen and examined at bedside. She is awake and alert. She denies shortness of breath. - Current Medication List Current Medications: Active Medications Acetaminophen (Tylenol -) 975 mg PO Q6H PRN PRN Reason: Fever Or Pain Last Admin: 03/06/19 09:31 Dose: 975 mg Al Hydroxide/Mg Hydroxide (Mylanta Oral Suspension -) 30 ml PO Q6H PRN PRN Reason: DYSPEPSIA Last Admin: 03/06/19 11:47 Dose: 30 ml Albuterol Sulfate (Ventolin 0.083% Nebulizer Soln -) 1 amp NEB QID PRN PRN Reason: WHEEZING Last Admin: 03/06/19 01:14 Dose: 1 amp Atorvastatin Calcium (Lipitor -) 20 mg PO HS [facility] Last Admin: 03/05/19 21:41 Dose: 20 mg Benzocaine/Menthol (Cepacol Lozenge -) 1 each MM PRN PRN PRN Reason: SORE THROAT Guaifenesin (Robitussin Dm -) 10 ml PO Q6H PRN PRN Reason: COUGH Cefazolin Sodium/Dextrose (Ancef 2 Gm Premixed Ivpb -) 2 gm in 50 mls @ 100 mls /hr IVPB Q8H-IV [facility] Last Admin: 03/06/19 09:31 Dose: 100 mls/hr Ketorolac Tromethamine (Toradol Injection -) 15 mg IVPUSH Q6H PRN PRN Reason: PAIN LEVEL 7 - 10 Stop: 03/08/19 09:23 Last Admin: 03/06/19 02:00 Dose: 15 mg Ondansetron HCl (Zofran Injection) 4 mg IVPUSH Q6H PRN PRN Reason: NAUSEA AND/OR VOMITING Potassium Chloride (K-Dur -) 40 meq PO HS [facility] Last Admin: 03/05/19 21:39 Dose: Not Given Ranitidine HCl (Zantac -) 150 mg PO BID [facility] Last Admin: 03/06/19 09:32 Dose: 150 mg Tamsulosin HCl (Flomax -) 0.4 mg PO DAILY@0830 [facility] Last Admin: 03/06/19 09:31 Dose: 0.4 mg - Objective Vital Signs: Vital Signs Temperature 98.1 F 03/06/19 10:00 Pulse Rate 104 H 03/06/19 10:00 Respiratory Rate 18 03/06/19 10:00 Blood Pressure 122/82 03/06/19 10:00 O2 Sat by Pulse Oximetry (%) 96 03/06/19 09:00 Constitutional: Yes: Calm Eyes: Yes: Conjunctiva Clear HENT: Yes: Atraumatic Neck: Yes: Supple Cardiovascular: Yes: S1, S2 Respiratory: Yes: CTA Bilaterally Gastrointestinal: Yes: Soft Genitourinary: Yes: Other (left nephrostomy) Musculoskeletal: Yes: WNL Edema: No Neurological: Yes: Oriented Psychiatric: Yes: Oriented Labs: CBC, BMP 03/06/19 06:00 03/06/19 06:00 INR, PTT INR 0.98 (0.83-1.09) 03/05/19 08:52 Problem List - Problems (1) VICKI (acute kidney injury) Code(s): N17.9 - ACUTE KIDNEY FAILURE, UNSPECIFIED (2) Nephrolithiasis Code(s): N20.0 - CALCULUS OF KIDNEY (3) Sepsis Code(s): A41.9 - SEPSIS, UNSPECIFIED ORGANISM Assessment/Plan Current Medications Generic Name Dose Route Start Last Admin Trade Name Freq PRN Reason Stop Dose Admin Acetaminophen 975 mg 03/04/19 19:50 03/06/19 09:31 Tylenol - PO 975 mg Q6H PRN Administration Fever Or Pain Al Hydroxide/Mg Hydroxide 30 ml 03/04/19 19:50 03/06/19 11:47 Mylanta Oral Suspension - PO 30 ml Q6H PRN Administration DYSPEPSIA Albuterol Sulfate 1 amp 03/04/19 19:50 03/06/19 01:14 Ventolin 0.083% Nebulizer Soln - NEB 1 amp QID PRN Administration WHEEZING Atorvastatin Calcium 20 mg 03/04/19 22:00 03/05/19 21:41 Lipitor - PO 20 mg HS [facility] Administration Benzocaine/Menthol 1 each 03/04/19 19:50 Cepacol Lozenge - MM PRN PRN SORE THROAT Guaifenesin 10 ml 03/04/19 19:50 Robitussin Dm - PO Q6H PRN COUGH Cefazolin Sodium/Dextrose 2 gm in 50 mls @ 100 mls/hr 03/05/19 02:00 09:31 Ancef 2 Gm Premixed Ivpb - IVPB 100 mls/hr Q8H-IV [facility] Administration Ketorolac Tromethamine 15 mg 03/04/19 19:50 03/06/19 02:00 Toradol Injection - IVPUSH 03/08/19 09:23 15 mg Q6H PRN Administration PAIN LEVEL 7 - 10 Ondansetron HCl 4 mg 03/04/19 19:50 Zofran Injection IVPUSH Q6H PRN NAUSEA AND/OR VOMITING Potassium Chloride 40 meq 03/05/19 22:00 03/05/19 21:39 K-Dur - PO Not Given HS [facility] Ranitidine HCl 150 mg 03/04/19 22:00 03/06/19 09:32 Zantac - PO 150 mg BID [facility] Administration Tamsulosin HCl 0.4 mg 03/05/19 08:30 03/06/19 09:31 Flomax - PO 0.4 mg DAILY@0830 [facility] Administration Impression 1. VICKI 2. lactic acidosis 3. left hydronephrosis 4. nephrolithiasis 5. bactermia 6. sepsis 7. hypotension 8. hypokalemia - chronic 9. hx svt 10. asthma Plan - potassium is improved - monitor lytes - follow urine studies - bp stable - cysto possibly on Friday - will follow PRN Dr Alegria
[2019-03-06] MEDS: POTASSIUM CHLORIDE TABS 20 MEQ TABLET.ER (FP) PO SCH (22:07)
[2019-03-06] MEDS: ATORVASTATIN CA 20 MG TABLET (FP) PO SCH (22:08)
[2019-03-07] MEDS: ALBUTEROL SO4 0.083% IH SOL 2.5 MG/3 ML VIAL.NEB. NEB PRN ×2 (00:01→21:40)
[2019-03-07] MEDS: KETOROLAC TROMETHAMINE 15 MG/ML VIAL IVPUSH PRN (01:47)
[2019-03-07] MEDS: CEFAZOLIN 2 GM/D5W 2 GM/50 ML ML IVPB SCH ×3 (02:37→17:18)
[2019-03-07] MEDS: ACETAMINOPHEN 325 MG TABLET (FP) PO PRN ×3 (09:23→21:39)
[2019-03-07] MEDS: TAMSULOSIN HCL 0.4 MG CAP PO SCH (09:25)
[2019-03-07] MEDS: RANITIDINE HCL 150 MG TABLET (FP) PO SCH ×2 (09:25→21:38)
[2019-03-07] MEDS ORDERED: FLUCONAZOLE 150 MG TABLET PO ONE (11:18)
[2019-03-07] MEDS ORDERED: SENNOSIDES 8.6MG TABLET (FP) PO PRN (11:20)
--- NOTE | 2019-03-07 11:43 | PN ---
Teaching Attending Note Name of Resident: Cassie Christina ATTENDING PHYSICIAN STATEMENT I saw and evaluated the patient. I reviewed the resident's note and discussed the case with the resident. I agree with the resident's findings and plan as documented. SUBJECTIVE:c/o constipation. pain is controlled. denies CP, SOB, fver, chills, N /V/C/D OBJECTIVE: Last Vital Signs Temp Pulse Resp BP Pulse Ox 98.2 F 88 20 131/79 96 03/07/19 06:00 03/07/19 06:00 03/07/19 06:00 03/07/19 06:00 03/06/19 21:00 General NAD Lungs CTA B/L no wheezing/raels/rhonchi abdomen soft NT/ND +PNT with yellow drainage ASSESSMENT AND PLAN: 53 year old female with history of Asthma, presented to ED with abdominal pain, mostly R sided with reported myalgia/nausea/vomiting. 1. Septic Shock secondary to Acute Pyelonephritis and Ecoli Bacteremia-s/p L nephrostomy tube placement 03/01. afebrile, leukocytosis resolved. off steroids. repeat Bcx negative. on cefazolin day 7. can transition to ankur tomorrow. surgery rescheduled for Friday, tomorrow. Urology and ID on board. pain control 2. VICKI sec to obstructive uropathy versus ATN due to hypotension - resolved with IV hydration and pressor support. 3. Thrombocytopenia, likely myelosuppressive due to sepsis +/- consumptive due to elevated temperature - resolved 4. constipation- start miralax, colace hs 5. Chronic hypokalemia- kdur 40meq HS 6. Asthma- no evidence of acute exacerbation -cough non productive. CXR clear afebrile.will give incentive spirometer and cepacol prn. Albuterol PRN 7. Iron deficiency Anemia - does not appear acute. Iron Sat 3. Will need to obtain Colonoscopy hx and refer to GI as out-patient. 8. Troponinemia- secondary to demand ischemia due to septic shock. TnI max 0.18. would benefit from ischemia eval as outpatient. Cardio on board 9. DVT Px - SCDs. Heparin held due to Thrombocytopenia. 10. plan to d/c home tomorrow after procedure
--- NOTE | 2019-03-07 13:06 | PN ---
Physical Exam: SUBJECTIVE: Patient seen and examined at bedside this morning. No acute events overnight. Patient reported vaginal pruritus this morning, as well as constipation. Denies fever, chills,headache, dizziness, chest pain, SOB, abdominal pain, dysuria, hematuria. OBJECTIVE: Vital Signs Temperature 98.2 F 03/07/19 06:00 Pulse Rate 88 03/07/19 06:00 Respiratory Rate 20 03/07/19 06:00 Blood Pressure 131/79 03/07/19 06:00 O2 Sat by Pulse Oximetry (%) 96 03/06/19 21:00 GENERAL: The patient is awake, alert, and fully oriented, in no acute distress. HEAD: Normal with no signs of trauma. EYES: PERRLA, EOMI, sclera anicteric, conjunctiva clear. ENT: moist mucous membranes. NECK: full range of motion, supple. LUNGS: Breath sounds equal, clear to auscultation bilaterally. HEART: Regular rate and rhythm, S1, S2 without murmur, rub or gallop. ABDOMEN: Soft, nontender, nondistended, normoactive bowel sounds. : +erythema and whitish thick discharge in the vaginal introitus EXTREMITIES: 2+ pulses, warm, well-perfused, no edema. NEUROLOGICAL: Cranial nerves II through XII grossly intact. Normal speech, normal gait PSYCH: Normal mood, normal affect. SKIN: Warm, dry, normal turgor, no rashes or lesions noted Laboratory Results - last 24 hr 03/06/19 03/06/19 21:00 21:00 Urine Osmolality 702 Ur Random Sodium 55 Ur Random Potassium 61.0 Ur Random Chloride 59 L Active Medications Generic Name Dose Route Start Last Admin Trade Name Freq PRN Reason Stop Dose Admin Acetaminophen 975 mg 03/04/19 19:50 03/07/19 09:23 Tylenol - PO 975 mg Q6H PRN Administration Fever Or Pain Al Hydroxide/Mg Hydroxide 30 ml 03/04/19 19:50 03/06/19 11:47 Mylanta Oral Suspension - PO 30 ml Q6H PRN Administration DYSPEPSIA Albuterol Sulfate 1 amp 03/04/19 19:50 03/07/19 00:01 Ventolin 0.083% Nebulizer Soln - NEB 1 amp QID PRN Administration WHEEZING Atorvastatin Calcium 20 mg 03/04/19 22:00 03/06/19 22:08 Lipitor - PO 20 mg HS [facility] Administration Benzocaine/Menthol 1 each 03/04/19 19:50 Cepacol Lozenge - MM PRN PRN SORE THROAT Docusate Sodium 300 mg 03/07/19 22:00 Colace - PO HS [facility] Guaifenesin 10 ml 03/04/19 19:50 Robitussin Dm - PO Q6H PRN COUGH Cefazolin Sodium/Dextrose 2 gm in 50 mls @ 100 mls/hr 03/05/19 02:00 09:25 Ancef 2 Gm Premixed Ivpb - IVPB 100 mls/hr Q8H-IV [facility] Administration Ketorolac Tromethamine 15 mg 03/04/19 19:50 03/07/19 01:47 Toradol Injection - IVPUSH 03/08/19 09:23 15 mg Q6H PRN Administration PAIN LEVEL 7 - 10 Ondansetron HCl 4 mg 03/04/19 19:50 Zofran Injection IVPUSH Q6H PRN NAUSEA AND/OR VOMITING Potassium Chloride 40 meq 03/05/19 22:00 03/06/19 22:07 K-Dur - PO 40 meq HS [facility] Administration Ranitidine HCl 150 mg 03/04/19 22:00 03/07/19 09:25 Zantac - PO 150 mg BID [facility] Administration Senna 2 tab 03/07/19 11:20 Senna - PO HS PRN CONSTIPATION Tamsulosin HCl 0.4 mg 03/05/19 08:30 03/07/19 09:25 Flomax - PO 0.4 mg DAILY@0830 [facility] Administration ASSESSMENT/PLAN: Patient is a 53 year old female with past medical history of asthma, hypokalemia , presented to the ED with sudden onset abdominal pain, found to have pyelonephritis and obstructing kidney stone, subsequently developed septic shock. #Septic shock 2/2 pyelonephritis, resolved -s/p Left nephrostomy tube placement (03/01) -Blood and urine cx: + E coli -Repeat blood and urine cultures negative -On IV cefazolin day 7. -ID (Dr. Amaro) consulted. -Plan to continue IV cefazolin until stent placement tomorrow and then switch to PO #Left nephrolithiasis -CTAP: moderate left hydronephrosis due to a 7mm proximal UPJ stone with probable ruptured calyx. -Urology (Dr Landeros) consulted. -NPO after midnight for stent placement tomorrow -Flomax 0.4mg daily -pain control with Tylenol and Toradol PRN #Vaginal pruritus -likely candidiasis -Will give Fluconazole #VICKI likely 2/2 postrenal obstruction, resolved -Cr wnl -will continue to monitor renal function #Hypokalemia -patient reported hx of hypoK >15 years, with baseline at 3.0 -Has been on KCl 20mg daily -Nephrology (Dr. Alegria) consulted. -KCl increased to 40mg daily #Asthma -Will continue albuterol neb prn #FEN -Not on any standing fluids. -Routine bmp monitoring -Regular diet, NPO after midnight #Prophylaxis -SCDs, early ambulation #Disposition -full code -med surg Visit type - Emergency Visit Emergency Visit: Yes ED Registration Date: 02/28/19 Care time: The patient presented to the Emergency Department on the above date and was hospitalized for further evaluation of their emergent condition. - New Patient This patient is new to me today: No - Critical Care Critical Care patient: No ATTENDING PHYSICIAN STATEMENT I saw and evaluated the patient. I reviewed the resident's note and discussed the case with the resident. I agree with the resident's findings and plan as documented. SUBJECTIVE: OBJECTIVE: ASSESSMENT AND PLAN:
[2019-03-07] MEDS: ATORVASTATIN CA 20 MG TABLET (FP) PO SCH (21:38)
[2019-03-07] MEDS: POTASSIUM CHLORIDE TABS 20 MEQ TABLET.ER (FP) PO SCH (21:42)
[2019-03-07] MEDS ORDERED: DOCUSATE SODIUM 100 MG CAPSULE (FP) PO SCH (22:00)
[2019-03-08] MEDS: KETOROLAC TROMETHAMINE 15 MG/ML VIAL IVPUSH PRN ×2 (01:47→18:31)
[2019-03-08] MEDS: CEFAZOLIN 2 GM/D5W 2 GM/50 ML ML IVPB SCH ×3 (02:28→17:06)
[2019-03-08 09:02] LABS: BLOOD UREA NITROGEN 12.4 mg/dL (7-18); CALCIUM 8.6 mg/dL (8.5-10.1); CREATININE 0.6 mg/dL (0.55-1.3)
[2019-03-08] MEDS: TAMSULOSIN HCL 0.4 MG CAP PO SCH (09:16)
[2019-03-08] MEDS: RANITIDINE HCL 150 MG TABLET (FP) PO SCH ×2 (09:48→21:00)
[2019-03-08] MEDS ORDERED: KETOROLAC TROMETHAMINE 15 MG/ML VIAL IVPUSH PRN (11:22)
[2019-03-08] MEDS: ALBUTEROL SO4 0.083% IH SOL 2.5 MG/3 ML VIAL.NEB. NEB PRN (12:27)
--- NOTE | 2019-03-08 13:37 | OP ---
Operative Note - Note: Operative Date: 03/08/19 Pre-Operative Diagnosis: L UPJ calculus Operation: cystoscopy, L JJ stent insertion Findings: L UPJ calculus Post-Operative Diagnosis: Same as Pre-op Surgeon: Mesfin Landeros Anesthesiologist/COLLET DRILLER: Craig Wesley Anesthesia: General Estimated Blood Loss (mls): 0 Drains & Tubes with Location: 6 fr 24 cm L JJ stent , L nephrostomy Operative Report Dictated: Yes
[2019-03-08] MEDS ORDERED: FAMOTIDINE 20 MG/50 ML IVPB 20 MG/50 ML MG IVPB ONE (13:47)
[2019-03-08] MEDS ORDERED: MIDAZOLAM HCL 2 MG/2 ML SINGLE DOSE VIAL ONE (13:52)
[2019-03-08] MEDS ORDERED: PROPOFOL 20 ML ONE ×2 (13:52→14:15)
[2019-03-08] MEDS ORDERED: DEXAMETHASONE SOD PHOSPHATE 4 MG/1 ML VIAL ONE (13:54)
[2019-03-08] MEDS ORDERED: GENTAMICIN SO4 80 MG/2 ML VIAL ONE (14:12)
[2019-03-08] MEDS ORDERED: GENTAMICIN 80MG PREMIX BAG IVPB ONE (14:13)
--- NOTE | 2019-03-08 15:00 | PN ---
Teaching Attending Note Name of Resident: Nicolas Vincent ATTENDING PHYSICIAN STATEMENT I saw and evaluated the patient. I reviewed the resident's note and discussed the case with the resident. I agree with the resident's findings and plan as documented. SUBJECTIVE:anxious for procedure today. no complaints. denies Cp, SOB, fever, chills, N/V/C/D OBJECTIVE: Last Vital Signs Temp Pulse Resp BP Pulse Ox 98.9 F 93 H 22 H 158/86 95 03/08/19 09:44 03/08/19 09:44 03/08/19 09:44 03/08/19 09:44 03/08/19 09:00 General NAD Lungs CTA B/L no wheezing/raels/rhonchi abdomen soft NT/ND +PNT with yellow drainage ASSESSMENT AND PLAN: 53 year old female with history of Asthma, presented to ED with abdominal pain, mostly R sided with reported myalgia/nausea/vomiting. 1. Septic Shock secondary to Acute Pyelonephritis and Ecoli Bacteremia-s/p L nephrostomy tube placement 03/01. afebrile, leukocytosis resolved. off steroids. repeat Bcx negative. on cefazolin day 8 will transition to levaquin on discharge to complete 10 day course. plan for stent placement by urology today. Urology and ID on board. pain control 2. VICKI sec to obstructive uropathy versus ATN due to hypotension - resolved with IV hydration and pressor support. 3. Thrombocytopenia, likely myelosuppressive due to sepsis +/- consumptive due to elevated temperature - resolved 4. constipation- start miralax, colace hs 5. Chronic hypokalemia- kdur 40meq HS 6. Asthma- no evidence of acute exacerbation -cough non productive. CXR clear afebrile.will give incentive spirometer and cepacol prn. Albuterol PRN 7. Iron deficiency Anemia - does not appear acute. Iron Sat 3. Will need to obtain Colonoscopy hx and refer to GI as out-patient. 8. Troponinemia- secondary to demand ischemia due to septic shock. TnI max 0.18. would benefit from ischemia eval as outpatient. Cardio on board 9. DVT Px - SCDs. Heparin held due to Thrombocytopenia. 10. plan to d/c home after procedure
[2019-03-08] MEDS ORDERED: MAG HYDROX/AL HYDROX/SIMETH 30 ML UNIT-DOSE CUP PO PRN (15:55)
[2019-03-08] MEDS ORDERED: guaiFENesin/D-METHORPHAN HB 10 ML UNIT-DOSE CUPS PO PRN (15:55)
[2019-03-08] MEDS ORDERED: ONDANSETRON 4 MG/2 ML VIAL IVPUSH PRN (15:55)
[2019-03-08] MEDS ORDERED: SENNOSIDES 8.6MG TABLET (FP) PO PRN (15:55)
[2019-03-08] MEDS ORDERED: BENZOCAINE/MENTH/CETYLPYRD CL 1 EACH LOZENGE MM PRN (15:55)
--- NOTE | 2019-03-08 16:17 | PN ---
Physical Exam: SUBJECTIVE: 53 y/o F w PMH asthma and hypokalemia, whom presented to the ED with sudden onset abdominal pain and admitted for sepsis 2/2 septic shock d/t pyelonephritis and obstructing kidney stone, seen and examined at bedside this morning. No acute events overnight. Pt reports vaginal pruritus and constipation have resolved. She states that she is ready for the nephrostomy stent placement procedure today. Denies fever, chills,headache, dizziness, chest pain, SOB, abdominal pain, dysuria, hematuria. OBJECTIVE: Vital Signs Temp Pulse Resp BP Pulse Ox 98.1 F 95 H 17 128/74 98 03/08/19 14:40 03/08/19 15:15 03/08/19 15:15 03/08/19 15:15 03/08/19 15:15 GENERAL: The patient is awake, alert, and fully oriented, in no acute distress. HEAD: Normal with no signs of trauma. EYES: LOIS, EOMI, sclera anicteric, conjunctiva clear. ENT: moist mucous membranes. NECK: full range of motion, supple. LUNGS: Breath sounds equal, clear to auscultation bilaterally. HEART: Regular rate and rhythm, S1, S2 without murmur, rub or gallop. ABDOMEN: Obese, soft, nontender, nondistended, normoactive bowel sounds. EXTREMITIES: 2+ pulses, warm, well-perfused, no edema. NEUROLOGICAL: Cranial nerves III through XII grossly intact. Normal speech PSYCH: Normal mood, normal affect. SKIN: Warm, dry, normal turgor, no rashes or lesions noted Laboratory Results - last 24 hr 03/08/19 07:30 Sodium 144 Potassium 4.0 Chloride 110 H Carbon Dioxide 27 Anion Gap 7 L BUN 12.4 Creatinine 0.6 Est GFR (CKD-EPI)AfAm 118.93 Est GFR (CKD-EPI)NonAf 102.61 Random Glucose 82 Calcium 8.6 Active Medications Acetaminophen (Tylenol -) 975 mg PO Q6H PRN PRN Reason: Fever Or Pain Al Hydroxide/Mg Hydroxide (Mylanta Oral Suspension -) 30 ml PO Q6H PRN PRN Reason: DYSPEPSIA Albuterol Sulfate (Ventolin 0.083% Nebulizer Soln -) 1 amp NEB QID PRN PRN Reason: WHEEZING Atorvastatin Calcium (Lipitor -) 20 mg PO HS IBETH Benzocaine/Menthol (Cepacol Lozenge -) 1 each MM PRN PRN PRN Reason: SORE THROAT Docusate Sodium (Colace -) 300 mg PO HS [facility] Fentanyl (Sublimaze Injection -) 25 mcg IVPUSH [id number] PRN PRN Reason: PAIN-PACU ORDER X 4 DOSES ONLY Guaifenesin (Robitussin Dm -) 10 ml PO Q6H PRN PRN Reason: COUGH Cefazolin Sodium/Dextrose (Ancef 2 Gm Premixed Ivpb -) 2 gm in 50 mls @ 100 mls /hr IVPB Q8H-IV IB[facility] Ketorolac Tromethamine (Toradol Injection -) 15 mg IVPUSH Q6H PRN PRN Reason: PAIN LEVEL 1-5 Stop: 03/13/19 11:24 Ondansetron HCl (Zofran Injection) 4 mg IVPUSH Q6H PRN PRN Reason: NAUSEA AND/OR VOMITING Potassium Chloride (K-Dur -) 40 meq PO HS [facility] Ranitidine HCl (Zantac -) 150 mg PO BID IBETH Senna (Senna -) 2 tab PO HS PRN PRN Reason: CONSTIPATION Tamsulosin HCl (Flomax -) 0.4 mg PO DAILY@0830 [facility] ASSESSMENT/PLAN: Pt is a 53 y/o F w PMH asthma and hypokalemia, whom presented to the ED with sudden onset abdominal pain. She was admitted for sepsis 2/2 septic shock in the setting of pyelonephritis and obstructing kidney stone. # LEFT nephrolithiasis - s/p LEFT stent placement (03/08/19) (Dr Landeros) > if no fever, bloody d/c, or urine leakage, request Dr. Ortiz's team remove nephrostomy tube tomorrow - s/p LEFT nephrostomy tube placement (03/01/19) - CTAP: moderate left hydronephrosis due to a 7mm proximal UPJ stone with probable ruptured calyx. - Flomax 0.4mg daily - Pain control with Tylenol and Toradol PRN # Septic shock 2/2 pyelonephritis, resolved - Blood and urine cx: + E coli, repeat blood culture negative - Repeat blood and urine cultures negative - On cefazolin day 8. Transition to levaquin on d/c to complete 10 day course. - ID consulted (Dr. Amaro) # Vaginal pruritus - likely candidiasis - Fluconazole #VICKI likely 2/2 postrenal obstruction, resolved - Cr wnl - Will continue to monitor renal function # Hypokalemia - patient reported hx of hypoK >15 years, with baseline at 3.0 - Has been on KCl 40mg daily - Nephrology consulted (Dr. Alegria) - KCl increased to 40mg daily # Thrombocytopenia - Most likely d/t myelosuppression +/- consumptive due to elevated temperature - Resolved # Asthma - Will continue albuterol neb prn - CXR clear - Afebrile - Incentive spirometer - Cepacol prn - Albuterol prn # Constipation - Cont. miralax and colace # Iron deficiency anemia - Not likely acute - Iron Sat 3 - F/u colonoscopy at d/c - F/u GI as out-pt. # Troponinemia - 2/2 to demand ischemia due to septic shock - TnI max 0.18 - Would benefit from ischemia eval as out-pt - Cardio on board # F/E/N - Not on any standing fluids. - Routine bmp monitoring - Regular diet, NPO after midnight # DVT prophylaxis - SCDs - Early ambulation # Disposition - Full code - Med-surg Nicolas Vincent MD Visit type - Emergency Visit Emergency Visit: No - New Patient This patient is new to me today: No - Critical Care Critical Care patient: No - Discharge Referral Referred to [facility] Med P.C[facility] No ATTENDING PHYSICIAN STATEMENT I saw and evaluated the patient. I reviewed the resident's note and discussed the case with the resident. I agree with the resident's findings and plan as documented. SUBJECTIVE: OBJECTIVE: ASSESSMENT AND PLAN:
--- NOTE | 2019-03-08 17:41 | OP ---
DATE OF OPERATION: 03/08/2019 PREOPERATIVE DIAGNOSIS: Left ureteropelvic junction calculus. POSTOPERATIVE DIAGNOSIS: Left ureteropelvic junction calculus. PROCEDURE: Cystoscopy, left double J stent insertion. SURGEON: Mesfin Darby MD [place] GENERAL: None. ANESTHESIA: General via laryngeal mask. ANESTHESIOLOGIST: Craig Wesley MD SPECIMENS: None. CULTURES: None. DRAINS: 6-Indian 24-cm left double J stent and a left nephrostomy. ESTIMATED BLOOD LOSS: None. COMPLICATIONS: None. DESCRIPTION OF PROCEDURE: Patient was brought in the operating room. Placed on the operating room table in supine position. After administration of general anesthesia via laryngeal mask, intravenous antibiotics were administered. Sequential compression devices were placed. Patient was placed in a dorsal lithotomy position. Vagina and perineum were prepped and draped in the usual sterile manner. A 22-Indian cystoscope was inserted into the bladder with the obturator in place. The obturator was removed. Urine was evacuated, 30-degree telescope was inserted. Cystoscopy was performed. This demonstrated no foreign bodies, tumors, stones, inflammation. Both ureteral orifices were in their usual location with diminished efflux from the left ureteral orifice. The left ureteral orifice was cannulated with a 0.038 guidewire, which was advanced to the level of the left renal pelvis under fluoroscopic and direct visual guidance. Retrograde pyelogram was done. Demonstrated left ureteropelvic junction stone in the renal pelvis now with left nephrostomy in good position. There is no hydronephrosis. The dual lumen catheter was removed, and a 6-Indian 24-cm left double-J stent was inserted over the guidewire under direct visual and fluoroscopic guidance leaving 1 coil in the renal pelvis and 1 coil in the bladder. The bladder was emptied. Cystoscope removed. Patient tolerated the procedure well and transferred to the recovery room in stable condition. PLAN: We will clamp nephrostomy tube, and we will remove if she tolerates this in 24-48 hours. MESFIN DARBY M.D. [id number]
[2019-03-08] MEDS: ACETAMINOPHEN 325 MG TABLET (FP) PO PRN (20:06)
[2019-03-08] MEDS: ATORVASTATIN CA 20 MG TABLET (FP) PO SCH (21:00)
[2019-03-08] MEDS: POTASSIUM CHLORIDE TABS 20 MEQ TABLET.ER (FP) PO SCH (21:00)
[2019-03-08] MEDS: DOCUSATE SODIUM 100 MG CAPSULE (FP) PO SCH (21:01)
[2019-03-09] MEDS: KETOROLAC TROMETHAMINE 15 MG/ML VIAL IVPUSH PRN ×3 (00:31→15:16)
[2019-03-09] MEDS: ALBUTEROL SO4 0.083% IH SOL 2.5 MG/3 ML VIAL.NEB. NEB PRN ×3 (01:02→15:59)
[2019-03-09] MEDS: CEFAZOLIN 2 GM/D5W 2 GM/50 ML ML IVPB SCH ×3 (01:28→18:21)
[2019-03-09] MEDS: ACETAMINOPHEN 325 MG TABLET (FP) PO PRN (03:34)
[2019-03-09 07:08] LABS: BASO % 0.4 % (0-2.0); HEMATOCRIT 31.4 % (32.4-45.2); HEMOGLOBIN 10.6 GM/dL (10.7-15.3); MCH 28.6 pg (25.7-33.7); MCHC 33.7 g/dl (32.0-36.0); MEAN CELL VOLUME 84.9 fl (80-96); MEAN PLT VOLUME 7.3 fl (7.5-11.1); MONO % 3.6 % (3.8-10.2); RDW 14.3 % (11.6-15.6); WHITE BLOOD COUNT 9.8 K/mm3 (4.0-10.0)
[2019-03-09 08:13] LABS: POTASSIUM 4.4 mmol/L (3.5-5.1)
[2019-03-09 08:26] LABS: ALBUMIN 3.2 g/dl (3.4-5.0); BILIRUBIN,TOTAL 0.2 mg/dL (0.2-1); BLOOD UREA NITROGEN 16.6 mg/dL (7-18); CALCIUM 8.7 mg/dL (8.5-10.1); CREATININE 0.6 mg/dL (0.55-1.3); MAGNESIUM 2.4 mg/dL (1.8-2.4); PHOSPHOROUS 3.4 mg/dL (2.5-4.9)
[2019-03-09 08:40] LABS: PLATELET COUNT 319 K/MM3 (134-434)
--- NOTE | 2019-03-09 08:58 | PN ---
Progress Note (short form) - Note Progress Note: Anesthesiology Post-op POD #1 s/p cystoscopy with stent placement under GA. Pt. doing well. Pain controlled with meds. VSS. No apparent anesthesia-related issues. 53 y.o. woman with stable post-operative course. Continue management as per primary team.
[2019-03-09] MEDS: RANITIDINE HCL 150 MG TABLET (FP) PO SCH ×2 (09:54→21:46)
[2019-03-09] MEDS: TAMSULOSIN HCL 0.4 MG CAP PO SCH (09:54)
--- NOTE | 2019-03-09 17:01 | PN ---
Physical Exam: SUBJECTIVE: 53 y/o F w PMH asthma and hypokalemia, whom presented to the ED with sudden onset abdominal pain and admitted for sepsis 2/2 septic shock d/t pyelonephritis and obstructing kidney stone. She is s/p nephrostomy tube placement and yesterday has stent placement. Seen and examined at bedside this morning on [facility]-surg floor. No acute events overnight. Surgical site is not painful. She is passing urine w/o complaint. Denies fever, chills,headache, dizziness, chest pain, SOB, abdominal pain, dysuria, hematuria. OBJECTIVE: Vital Signs Temp Pulse Resp BP Pulse Ox 98.6 F 95 H 20 131/80 98 03/09/19 10:00 03/09/19 10:00 03/09/19 15:02 03/09/19 15:02 03/09/19 09:00 GENERAL: The patient is awake, alert, and fully oriented, in no acute distress. HEAD: Normal with no signs of trauma. EYES: LOIS, EOMI, sclera anicteric, conjunctiva clear. ENT: moist mucous membranes. NECK: full range of motion, supple. LUNGS: Breath sounds equal, clear to auscultation bilaterally. HEART: Regular rate and rhythm, S1, S2 without murmur, rub or gallop. ABDOMEN: Obese, soft, nontender, nondistended, normoactive bowel sounds. EXTREMITIES: 2+ pulses, warm, well-perfused, no edema. NEUROLOGICAL: Cranial nerves III through XII grossly intact. Normal speech PSYCH: Normal mood, normal affect. SKIN: Warm, dry, normal turgor, no rashes or lesions noted Laboratory Results - last 24 hr 03/09/19 03/09/19 06:30 06:30 WBC 9.8 RBC 3.70 Hgb 10.6 L Hct 31.4 L MCV 84.9 MCH 28.6 MCHC 33.7 RDW 14.3 Plt Count 319 D MPV 7.3 L Absolute Neuts (auto) 8.2 H Neutrophils % 84.0 H Lymphocytes % 12.0 D Monocytes % 3.6 L Eosinophils % 0.0 D Basophils % 0.4 Nucleated RBC % 0 Sodium 141 Potassium 4.4 Chloride 109 H Carbon Dioxide 23 Anion Gap 9 BUN 16.6 Creatinine 0.6 Est GFR (CKD-EPI)AfAm 118.93 Est GFR (CKD-EPI)NonAf 102.61 Random Glucose 120 H Calcium 8.7 Phosphorus 3.4 Magnesium 2.4 Total Bilirubin 0.2 AST 24 ALT 20 Alkaline Phosphatase 82 Total Protein 6.0 L Albumin 3.2 L Active Medications Acetaminophen (Tylenol -) 975 mg PO Q6H PRN PRN Reason: Fever Or Pain Last Admin: 03/09/19 03:34 Dose: 975 mg Al Hydroxide/Mg Hydroxide (Mylanta Oral Suspension -) 30 ml PO Q6H PRN PRN Reason: DYSPEPSIA Albuterol Sulfate (Ventolin 0.083% Nebulizer Soln -) 1 amp NEB QID PRN PRN Reason: WHEEZING Last Admin: 03/09/19 15:59 Dose: 1 amp Atorvastatin Calcium (Lipitor -) 20 mg PO [facility] Last Admin: 03/08/19 21:00 Dose: 20 mg Benzocaine/Menthol (Cepacol Lozenge -) 1 each MM PRN PRN PRN Reason: SORE THROAT Docusate Sodium (Colace -) 300 mg PO [facility] Last Admin: 03/08/19 21:01 Dose: Not Given Guaifenesin (Robitussin Dm -) 10 ml PO Q6H PRN PRN Reason: COUGH Cefazolin Sodium/Dextrose (Ancef 2 Gm Premixed Ivpb -) 2 gm in 50 mls @ 100 mls /hr IVPB Q8H-IV [facility] Last Admin: 03/09/19 09:54 Dose: 100 mls/hr Ketorolac Tromethamine (Toradol Injection -) 15 mg IVPUSH Q6H PRN PRN Reason: PAIN LEVEL 1-5 Stop: 03/13/19 11:24 Last Admin: 03/09/19 15:16 Dose: 15 mg Ondansetron HCl (Zofran Injection) 4 mg IVPUSH Q6H PRN PRN Reason: NAUSEA AND/OR VOMITING Potassium Chloride (K-Dur -) 40 meq PO [facility] Last Admin: 03/08/19 21:00 Dose: 40 meq Ranitidine HCl (Zantac -) 150 mg PO BID [facility] Last Admin: 03/09/19 09:54 Dose: 150 mg Senna (Senna -) 2 tab PO HS PRN PRN Reason: CONSTIPATION Tamsulosin HCl (Flomax -) 0.4 mg PO DAILY@0830 [facility] Last Admin: 03/09/19 09:54 Dose: 0.4 mg ASSESSMENT/PLAN: Pt is a 53 y/o F w PMH asthma and hypokalemia, whom presented to the ED with sudden onset abdominal pain. She was admitted for sepsis 2/2 septic shock in the setting of pyelonephritis and obstructing kidney stone. Pt is now stable, on med-surg floor. Plan was for d/c today but pt states she has some tenderness and will monitored for 1 more day. # LEFT nephrolithiasis - s/p LEFT stent placement (03/08/19) (Dr Landeros), pain today will monitor for 1 more day - s/p LEFT nephrostomy tube placement (03/01/19) - CTAP: moderate left hydronephrosis due to a 7mm proximal UPJ stone with probable ruptured calyx. - Flomax 0.4mg daily - Pain control with Tylenol and Toradol PRN # Septic shock 2/2 pyelonephritis, resolved - Blood and urine cx: + E coli, repeat blood culture negative - Repeat blood and urine cultures negative - On cefazolin. Transition to levaquin on d/c to complete 10 day course. - ID consulted (Dr. Amaro) # Vaginal pruritus, resolved - likely candidiasis - Fluconazole #VICKI likely 2/2 postrenal obstruction, resolved - Cr wnl - Will continue to monitor renal function # Hypokalemia - patient reported hx of hypoK >15 years, with baseline at 3.0 - Has been on KCl 40mg daily - Nephrology consulted (Dr. Alegria) - KCl increased to 40mg daily # Thrombocytopenia - Most likely d/t myelosuppression +/- consumptive due to elevated temperature - Resolved # Asthma - Will continue albuterol neb prn - CXR clear - Afebrile - Incentive spirometer - Cepacol prn - Albuterol prn # Constipation - Cont. miralax and colace # Iron deficiency anemia - Not likely acute - Iron Sat 3 - F/u colonoscopy at d/c - F/u GI as out-pt. # Troponinemia - 2/2 to demand ischemia due to septic shock - TnI max 0.18 - Would benefit from ischemia eval as out-pt - Cardio on board # F/E/N - Not on any standing fluids. - Routine bmp monitoring - Regular diet, NPO after midnight # DVT prophylaxis - SCDs - Early ambulation # Disposition - Full code - Med-surg Nicolas Vincent MD Visit type - Emergency Visit Emergency Visit: No - New Patient This patient is new to me today: No - Critical Care Critical Care patient: No - Discharge Referral Referred to [facility] Med P.C.: No ATTENDING PHYSICIAN STATEMENT I saw and evaluated the patient. I reviewed the resident's note and discussed the case with the resident. I agree with the resident's findings and plan as documented. SUBJECTIVE: OBJECTIVE: ASSESSMENT AND PLAN:
[2019-03-09] MEDS ORDERED: PT OWN MED DRAWER 7, Y5N ONE (18:17)
--- NOTE | 2019-03-09 18:45 | PN ---
Teaching Attending Note Name of Resident: Nicolas Vincent ATTENDING PHYSICIAN STATEMENT I saw and evaluated the patient. I reviewed the resident's note and discussed the case with the resident. I agree with the resident's findings and plan as documented. SUBJECTIVE: Patient is still c/o having left flank pain. patient has a nephrostomy tube and s/p stent. OBJECTIVE: Vital Signs Temperature 99.1 F 03/09/19 17:04 Pulse Rate 89 03/09/19 17:04 Respiratory Rate 20 03/09/19 17:04 Blood Pressure 143/91 03/09/19 17:04 O2 Sat by Pulse Oximetry (%) 98 03/09/19 09:00 GENERAL: The patient is awake, alert, and fully oriented, in no acute distress. HEAD: Normal with no signs of trauma. EYES: PERRL, extraocular movements intact, sclera anicteric, conjunctiva clear. ENT: Ears normal, oropharynx clear without exudates, moist mucous membranes. NECK: Trachea midline, full range of motion, supple. LUNGS: Breath sounds equal, clear to auscultation bilaterally, no wheezes, no crackles, no accessory muscle use. HEART: Regular rate and rhythm, S1, S2 without murmur, rub or gallop. ABDOMEN: Soft, mild left cva tenderness , nondistended, normoactive bowel sounds , no guarding, no rebound, no hepatosplenomegaly, no masses. positive for nephrostomy tube. EXTREMITIES: 2+ pulses, warm, well-perfused, no edema. NEUROLOGICAL: Cranial nerves II through XII grossly intact. Normal speech, gait not observed. PSYCH: Normal mood, normal affect. SKIN: Warm, dry, normal turgor, no rashes or lesions noted CBCD WBC 9.8 K/mm3 (4.0-10.0) 03/09/19 06:30 RBC 3.70 M/mm3 (3.60-5.2) 03/09/19 06:30 Hgb 10.6 GM/dL (10.7-15.3) L 03/09/19 06:30 Hct 31.4 % (32.4-45.2) L 03/09/19 06:30 MCV 84.9 fl (80-96) 03/09/19 06:30 MCHC 33.7 g/dl (32.0-36.0) 03/09/19 06:30 RDW 14.3 % (11.6-15.6) 03/09/19 06:30 Plt Count 319 K/MM3 (134-434) D 03/09/19 06:30 MPV 7.3 fl (7.5-11.1) L 03/09/19 06:30 CMP Sodium 141 mmol/L (136-145) 03/09/19 06:30 Potassium 4.4 mmol/L (3.5-5.1) 03/09/19 06:30 Chloride 109 mmol/L (98-107) H 03/09/19 06:30 Carbon Dioxide 23 mmol/L (21-32) 03/09/19 06:30 Anion Gap 9 MMOL/L (8-16) 03/09/19 06:30 BUN 16.6 mg/dL (7-18) 03/09/19 06:30 Creatinine 0.6 mg/dL (0.55-1.3) 03/09/19 06:30 Random Glucose 120 mg/dL (74-106) H 03/09/19 06:30 Calcium 8.7 mg/dL (8.5-10.1) 03/09/19 06:30 Total Bilirubin 0.2 mg/dL (0.2-1) 03/09/19 06:30 AST 24 U/L (15-37) 03/09/19 06:30 ALT 20 U/L (13-61) 03/09/19 06:30 Alkaline Phosphatase 82 U/L (45-117) 03/09/19 06:30 Total Protein 6.0 g/dl (6.4-8.2) L 03/09/19 06:30 Albumin 3.2 g/dl (3.4-5.0) L 03/09/19 06:30 CARDIAC ENZYMES Creatine Kinase 223 U/L (26-192) H 03/02/19 05:40 Troponin I 0.09 ng/ml (0.00-0.05) H 03/02/19 05:40 Current Medications Generic Name Dose Route Start Last Admin Trade Name Freq PRN Reason Stop Dose Admin Acetaminophen 975 mg 03/08/19 15:55 03/09/19 03:34 Tylenol - PO 975 mg Q6H PRN Administration Fever Or Pain Al Hydroxide/Mg Hydroxide 30 ml 03/08/19 15:55 Mylanta Oral Suspension - PO Q6H PRN DYSPEPSIA Albuterol Sulfate 1 amp 03/08/19 15:55 03/09/19 15:59 Ventolin 0.083% Nebulizer Soln - NEB 1 amp QID PRN Administration WHEEZING Atorvastatin Calcium 20 mg 03/08/19 22:00 03/08/19 21:00 Lipitor - PO 20 mg HS IBETH Administration Benzocaine/Menthol 1 each 03/08/19 15:55 Cepacol Lozenge - MM PRN PRN SORE THROAT Docusate Sodium 300 mg 03/08/19 22:00 03/08/19 21:01 Colace - PO Not Given HS [facility] Guaifenesin 10 ml 03/08/19 15:55 Robitussin Dm - PO Q6H PRN COUGH Cefazolin Sodium/Dextrose 2 gm in 50 mls @ 100 mls/hr 03/08/19 18:00 18:21 Ancef 2 Gm Premixed Ivpb - IVPB 100 mls/hr Q8H-IV [facility] Administration Ketorolac Tromethamine 15 mg 03/08/19 15:55 03/09/19 15:16 Toradol Injection - IVPUSH 03/13/19 11:24 15 mg Q6H PRN Administration PAIN LEVEL 1-5 Ondansetron HCl 4 mg 03/08/19 15:55 Zofran Injection IVPUSH Q6H PRN NAUSEA AND/OR VOMITING Potassium Chloride 40 meq 03/08/19 22:00 03/08/19 21:00 K-Dur - PO 40 meq HS IB[facility] Administration Ranitidine HCl 150 mg 03/08/19 22:00 03/09/19 09:54 Zantac - PO 150 mg BID IBETH Administration Senna 2 tab 03/08/19 15:55 Senna - PO HS PRN CONSTIPATION Tamsulosin HCl 0.4 mg 03/09/19 08:30 03/09/19 09:54 Flomax - PO 0.4 mg DAILY@0830 IBETH Administration Home Medications Medication Instructions Recorded Potassium Chloride [K-Tab ER] 10 meq PO BID 02/05/16 Diphenhydramine HCl [Benadryl -] 25 mg PO Q6H 06/06/17 Albuterol 0.083% Nebulizer Maddie 1 neb NEB QID PRN 02/28/19 [Ventolin 0.083%] Albuterol Sulfate Inhaler - 1 - 2 inh PO QID PRN 02/28/19 [Ventolin Hfa Inhaler -] Ranitidine HCl [Zantac] 300 mg PO BID 02/28/19 Microbiology 03/02/19 16:00 Blood - Peripheral Venous Blood Culture - Final NO GROWTH AFTER 5 DAYS INCUBATION 03/02/19 15:00 Blood - Peripheral Venous Blood Culture - Final NO GROWTH AFTER 5 DAYS INCUBATION 02/28/19 18:30 Urine - Urine Nephrostomy Tube Left Urine Culture - Final NO GROWTH OBTAINED 02/28/19 02:08 Urine - Urine Clean Catch Urine Culture - Final Escherichia Coli 02/28/19 02:08 Blood - Peripheral Venous Blood Culture - Final Escherichia Coli 02/28/19 02:05 Blood - Peripheral Venous Blood Culture - Final Escherichia Coli ASSESSMENT AND PLAN: Patient is a 53 year old female with history of Asthma, presented to ED with abdominal pain, and was found to have acute pylonephritis. # S/p Septic Shock due to having acute Pyelonephritis with Ecoli Bacteremia-s/ p L nephrostomy tube placement 03/01. s/p L JJ stent insertion on 03/08. On IV cefazolin day#9, repeat Bcx negative. Upon discharge continue with levaquin to complete 10 day course. urology and ID on board. follow as an outpatient. # s/p VICKI sec to obstructive uropathy improved # Thrombocytopenia : resolved #Acute constipation- on miralax, colace hs, also possible due to obstruction which improved. # Chronic hypokalemia- kdur 20meq HS, will change from 40 # Asthma- stable . CXR clear afebrile.will give incentive spirometer and cepacol prn. Albuterol PRN # Iron deficiency Anemia - with hemoglobin of 10-11 , does not appear acute. Iron Sat 3. Will need to obtain Colonoscopy hx and refer to GI as out-patient. #. Troponinemia- secondary to demand ischemia due to septic shock. TnI max 0.18. would benefit from ischemia eval as outpatient. Cardio on board DVT Px - SCDs. Heparin held due to Thrombocytopenia. was 73, now in 300s plan to d/c home after procedure, removal of nephrostomy tube.
[2019-03-09] MEDS: POTASSIUM CHLORIDE TABS 20 MEQ TABLET.ER (FP) PO SCH (21:45)
[2019-03-09] MEDS: ATORVASTATIN CA 20 MG TABLET (FP) PO SCH (21:46)
[2019-03-09] MEDS: DOCUSATE SODIUM 100 MG CAPSULE (FP) PO SCH (21:46)
[2019-03-10] MEDS: KETOROLAC TROMETHAMINE 15 MG/ML VIAL IVPUSH PRN ×3 (00:51→17:19)
[2019-03-10] MEDS: CEFAZOLIN 2 GM/D5W 2 GM/50 ML ML IVPB SCH ×3 (01:07→17:17)
[2019-03-10] MEDS: TAMSULOSIN HCL 0.4 MG CAP PO SCH (08:57)
[2019-03-10] MEDS: RANITIDINE HCL 150 MG TABLET (FP) PO SCH (09:51)
[2019-03-10 17:05] VITALS: BP 132/88; PULSE 89; TEMP 98.9
--- NOTE | 2019-03-10 18:10 | DS ---
Physical Exam: SUBJECTIVE: 53 y/o F w PMH asthma and hypokalemia, whom presented to the ED with sudden onset abdominal pain and admitted for sepsis 2/2 septic shock d/t pyelonephritis and obstructing kidney stone. She is s/p nephrostomy tube placement and yesterday has stent placement. Seen and examined at bedside this morning on med-surg floor. No acute events overnight. Surgical site is not painful. She is passing urine w/ o complaint. Denies fever, chills,headache, dizziness, chest pain, SOB, abdominal pain, dysuria, hematuria. OBJECTIVE: Vital Signs Period Temp Pulse Resp BP Sys/Gifford Pulse Ox Last 24 Hr 98.4 F-98.9 F 85-99 18-20 116-158/62-88 98-98 PHYSICAL EXAM GENERAL: The patient is awake, alert, and fully oriented, in no acute distress. HEAD: Normal with no signs of trauma. EYES: LOIS, EOMI, sclera anicteric, conjunctiva clear. ENT: moist mucous membranes. NECK: full range of motion, supple. LUNGS: Breath sounds equal, clear to auscultation bilaterally. HEART: Regular rate and rhythm, S1, S2 without murmur, rub or gallop. ABDOMEN: Obese, soft, nontender, nondistended, normoactive bowel sounds. EXTREMITIES: 2+ pulses, warm, well-perfused, no edema. NEUROLOGICAL: Cranial nerves III through XII grossly intact. Normal speech PSYCH: Normal mood, normal affect. SKIN: Warm, dry, normal turgor, no rashes or lesions noted LABS CBC,CMP WBC 9.8 K/mm3 (4.0-10.0) 03/09/19 06:30 RBC 3.70 M/mm3 (3.60-5.2) 03/09/19 06:30 Hgb 10.6 GM/dL (10.7-15.3) L 03/09/19 06:30 Hct 31.4 % (32.4-45.2) L 03/09/19 06:30 MCV 84.9 fl (80-96) 03/09/19 06:30 MCH 28.6 pg (25.7-33.7) 03/09/19 06:30 MCHC 33.7 g/dl (32.0-36.0) 03/09/19 06:30 RDW 14.3 % (11.6-15.6) 03/09/19 06:30 Plt Count 319 K/MM3 (134-434) D 03/09/19 06:30 MPV 7.3 fl (7.5-11.1) L 03/09/19 06:30 Absolute Neuts (auto) 8.2 K/mm3 (1.5-8.0) H 03/09/19 06:30 Neutrophils % 84.0 % (42.8-82.8) H 03/09/19 06:30 Neutrophils % (Manual) 57.0 % (42.8-82.8) 03/01/19 05:35 Band Neutrophils % 31.0 % 03/01/19 05:35 Lymphocytes % 12.0 % (8-40) D 03/09/19 06:30 Lymphocytes % (Manual) 2.0 % (8-40) L D 03/01/19 05:35 Monocytes % 3.6 % (3.8-10.2) L 03/09/19 06:30 Monocytes % (Manual) 0 % (3.8-10.2) L 03/01/19 05:35 Eosinophils % 0.0 % (0-4.5) D 03/09/19 06:30 Eosinophils % (Manual) 0.0 % (0-4.5) 03/01/19 05:35 Basophils % 0.4 % (0-2.0) 03/09/19 06:30 Basophils % (Manual) 0.0 % (0-2.0) 03/01/19 05:35 Myelocytes % (Man) 0 % (0-2) D 03/01/19 05:35 Promyelocytes % (Man) 0 % (0-2) 03/01/19 05:35 Blast Cells % (Manual) 0 % (0-0) 03/01/19 05:35 Nucleated RBC % 0 % (0-0) 03/09/19 06:30 Metamyelocytes 10 % (0-2) H D 03/01/19 05:35 Hypochromia 0 03/01/19 05:35 Toxic Granulation 0 02/28/19 02:08 Dohle Bodies 0 02/28/19 02:08 Platelet Estimate Decreased 03/01/19 05:35 Polychromasia 0 03/01/19 05:35 Poikilocytosis 0 03/01/19 05:35 Basophilic Stippling 0 02/28/19 02:08 Anisocytosis 0 03/01/19 05:35 Microcytosis 0 03/01/19 05:35 Macrocytosis 0 03/01/19 05:35 Spherocytes 0 02/28/19 02:08 Sickle Cells 0 02/28/19 02:08 Target Cells 0 02/28/19 02:08 Tear Drop Cells 0 02/28/19 02:08 Ovalocytes 0 02/28/19 02:08 Stomatocytes 0 02/28/19 02:08 Helmet Cells 0 02/28/19 02:08 Unger-Colwich Bodies 0 02/28/19 02:08 Stewart Rings 0 02/28/19 02:08 Deangelo Cells 0 02/28/19 02:08 Acanthocytes (Spur) 0 02/28/19 02:08 Rouleaux 0 02/28/19 02:08 Fragmented RBCs 0 02/28/19 02:08 Schistocytes 0 02/28/19 02:08 Retic Count 1.75 % (0.5-1.5) H 02/28/19 15:15 Sodium 141 mmol/L (136-145) 03/09/19 06:30 Potassium 4.4 mmol/L (3.5-5.1) 03/09/19 06:30 Chloride 109 mmol/L (98-107) H 03/09/19 06:30 Carbon Dioxide 23 mmol/L (21-32) 03/09/19 06:30 Anion Gap 9 MMOL/L (8-16) 03/09/19 06:30 BUN 16.6 mg/dL (7-18) 03/09/19 06:30 Creatinine 0.6 mg/dL (0.55-1.3) 03/09/19 06:30 Est GFR (CKD-EPI)AfAm 118.93 03/09/19 06:30 Est GFR (CKD-EPI)NonAf 102.61 03/09/19 06:30 Random Glucose 120 mg/dL (74-106) H 03/09/19 06:30 Serum Osmolality 289 mosm/kg (278-305) 03/06/19 06:00 Lactic Acid 1.8 mmol/L (0.4-2.0) 03/01/19 02:40 Calcium 8.7 mg/dL (8.5-10.1) 03/09/19 06:30 Phosphorus 3.4 mg/dL (2.5-4.9) 03/09/19 06:30 Magnesium 2.4 mg/dL (1.8-2.4) 03/09/19 06:30 Iron 10 ug/dL (50-175) L 02/28/19 15:15 TIBC 260 ug/dL (250-450) 02/28/19 15:15 Iron Saturation 3 % (17.5-39) L 02/28/19 15:15 Unsaturated IBC 250 ug/dL (200-275) 02/28/19 15:15 Ferritin 189.2 ng/ml (8-388) 02/28/19 15:15 Total Bilirubin 0.2 mg/dL (0.2-1) 03/09/19 06:30 AST 24 U/L (15-37) 03/09/19 06:30 ALT 20 U/L (13-61) 03/09/19 06:30 Alkaline Phosphatase 82 U/L (45-117) 03/09/19 06:30 Creatine Kinase 223 U/L (26-192) H 03/02/19 05:40 Creatine Kinase Index 0.5 % (0.0-5.0) 03/02/19 05:40 CK-MB (CK-2) 1.3 ng/mL (0.5-3.6) 03/02/19 05:40 Troponin I 0.09 ng/ml (0.00-0.05) H 03/02/19 05:40 Total Protein 6.0 g/dl (6.4-8.2) L 03/09/19 06:30 Albumin 3.2 g/dl (3.4-5.0) L 03/09/19 06:30 Lipase 282 U/L (73-393) 02/28/19 03:50 TSH 1.14 uIU/ml (0.358-3.74) 02/28/19 02:08 HOSPITAL COURSE: Date of Admission:02/28/19 Pt is a 53 y/o F w PMH asthma and hypokalemia, whom presented to the ED with sudden onset abdominal pain. She was admitted for sepsis 2/2 septic shock in the setting of pyelonephritis and obstructing kidney stone. Pt is now stable, on med-surg floor. LEFT nephrolithiasis now s/p LEFT stent placement (03/08/19) ( Dr Landeros) and s/p LEFT nephrostomy tube placement (03/01/19). The nephrostomy tube was removed. Initial CT AP demonstrated moderate left hydronephrosis due to a 7mm proximal UPJ stone with probable ruptured calyx. She was placed on Flomax 0.4mg daily and pain control with Tylenol and Toradol PRN. On presentation pt was in septic shock 2/2 pyelonephritis, which resolved once stabilized in ICU. Blood and urine cx were (+) E coli, repeat blood culture negative. Repeat blood and urine cultures were negative. Pt was initially on cefazolin and then transitioned to levaquin (on d/c to complete 10 day course). ID was consulted. During the stay, she experienced vaginal pruritus, which resolved and was likely candidiasis; this was treated with fluconazole. Her VICKI was likely 2/2 postrenal obstruction and it resolved. The patient reported hx of hypoK >15 years, with baseline at 3.0. She has been on KCl 40mg daily nephrology was consulted. A thrombocytopenia was appreciated was most likely d/ t myelosuppression +/- consumptive due to elevated temperature; it resolved by the end of the stay. Pt's asthma treated with home regimen. She was constipated during the stay but resolved with miralax and colace. An iron deficiency anemia , not likely acute, was found and recommded f/u colonoscopy at d/c / f/u GI as out-pt. Lastly, a troponinemia was found during initial presentation but 2/2 to demand ischemia due to septic shock. TnI max 0.18 and she would benefit from ischemia eval as out-pt; cardio on board. Pt was stable and dc to home. Date of Discharge: 03/10/19 Nicolas Vincent MD Minutes to complete discharge: 40 Discharge Summary Reason For Visit: CALCULUS OF KIDNEY, PYELONEPHRITIS,SEPSIS Current Active Problems VICKI (acute kidney injury) (Acute) Nephrolithiasis (Acute) Obstructive uropathy (Acute) Pyelonephritis (Acute) Sepsis (Acute) Ureteral calculus (Acute) Condition: Good - Instructions Diet, Activity, Other Instructions: YOUR VISIT You came to the hospital with back pain. You were admitted to the hospital because you were found to have a kidney stone. You needed the care of the ICU during this stay. You were seen by a urologist whom determined you needed a tube to help with urine drainage. You were also seen by a heart doctor, kidney doctor, infectious disease doctor, and interventional radiologist. Once you were stable, you had a stent placed and the tube was removed. You may now return home. MEDICATIONS Please continue to take your home medications as prescribed. We have started you on an antibiotic, Keflex, please take 500 mg every 8 hours for 4 days. ADDITIONAL CARE Please continue to follow a low sodium diet. Please make an appointment to see your primary care provider, Dr. Dr. Dianne Martin, 1 week from today. Please make an appointment to see your urologist, Dr. Landeros, 1 week from today. Please make an appointment with Dr. Damon to follow up on lung care. Please make an appointment with a application performance engineer on follow up on GI care and possible reason for anemia. Please make an appointment with sex crimes detective follow up on heart care. ADDITIONAL INFORMATION Please call 911 or come to the emergency room if you experience vision change, chest pain, shortness of breath, unusual bleeding, loss of alertness, loss of energy or any other alarming symptoms Referrals: Dianne Martin [Non Staff, Medical] - Mesfin Landeros MD [Staff Physician] - Ibrahima Eaton MD [Staff Physician] - 2 Weeks Oneal Rust MD [Staff Physician] - 1 Week Tushar Damon MD [Staff Physician] - Disposition: HOME - Home Medications Comprehensive Discharge Medication List: Ambulatory Orders Potassium Chloride [K-Tab ER] 10 meq PO BID 02/05/16 Diphenhydramine HCl [Benadryl Capsule -] 25 mg PO Q6H 06/06/17 Albuterol 0.083% Nebulizer Maddie [Ventolin 0.083% Nebulizer Soln -] 1 neb NEB QID PRN 02/28/19 Albuterol Sulfate Inhaler - [Ventolin HFA Inhaler -] 1 - 2 inh PO QID PRN Ranitidine HCl [Zantac] 300 mg PO BID 02/28/19 Atorvastatin Ca [Lipitor] 20 mg PO HS 30 Days #30 tablet 03/10/19 Cephalexin [Keflex] 500 mg PO Q8H 4 Days #12 capsule 03/10/19 This patient is new to me today: No Emergency Visit: No Critical Care patient: No - Discharge Referral [facility]erred to [facility] No ATTENDING PHYSICIAN STATEMENT I saw and evaluated the patient. I reviewed the resident's note and discussed the case with the resident. I agree with the resident's findings and plan as documented. SUBJECTIVE: OBJECTIVE: ASSESSMENT AND PLAN:
--- NOTE | 2019-03-10 18:51 | PN ---
Teaching Attending Note Name of Resident: Nicolas Vincent ATTENDING PHYSICIAN STATEMENT I saw and evaluated the patient. I reviewed the resident's note and discussed the case with the resident. I agree with the resident's findings and plan as documented. SUBJECTIVE: Mild Left flank pain associated with nephrostomy tube. No fever/ chills. OBJECTIVE: Afebrile, Hemodynamically Stable. Last Vital Signs Temp Pulse Resp BP Pulse Ox 98.9 F 89 18 132/88 98 03/10/19 17:01 03/10/19 17:01 03/10/19 17:01 03/10/19 17:01 03/10/19 09:00 HEENT - Atramatic, Normocephalic. Heart - S1, S2, RRR Lungs - clear to auscultation Abdomen -Soft, non-tender. Bowel Sounds normal. L Nephrostomy draining clear urine. Extremities - no calf tenderness. Current Medications Generic Name Dose Route Start Last Admin Trade Name Freq PRN Reason Stop Dose Admin Acetaminophen 975 mg 03/08/19 15:55 03/09/19 03:34 Tylenol - PO 975 mg Q6H PRN Administration Fever Or Pain Al Hydroxide/Mg Hydroxide 30 ml 03/08/19 15:55 Mylanta Oral Suspension - PO Q6H PRN DYSPEPSIA Albuterol Sulfate 1 amp 03/08/19 15:55 03/09/19 15:59 Ventolin 0.083% Nebulizer Soln - NEB 1 amp QID PRN Administration WHEEZING Atorvastatin Calcium 20 mg 03/08/19 22:00 03/09/19 21:46 Lipitor - PO 20 mg HS IBETH Administration Benzocaine/Menthol 1 each 03/08/19 15:55 Cepacol Lozenge - MM PRN PRN SORE THROAT Docusate Sodium 300 mg 03/08/19 22:00 03/09/19 21:46 Colace - PO Not Given HS IBETH Guaifenesin 10 ml 03/08/19 15:55 Robitussin Dm - PO Q6H PRN COUGH Cefazolin Sodium/Dextrose 2 gm in 50 mls @ 100 mls/hr 03/08/19 18:00 17:17 Ancef 2 Gm Premixed Ivpb - IVPB 100 mls/hr Q8H-IV IBETH Administration Ketorolac Tromethamine 15 mg 03/08/19 15:55 03/10/19 17:19 Toradol Injection - IVPUSH 03/13/19 11:24 15 mg Q6H PRN Administration PAIN LEVEL 1-5 Ondansetron HCl 4 mg 03/08/19 15:55 Zofran Injection IVPUSH Q6H PRN NAUSEA AND/OR VOMITING Potassium Chloride 40 meq 03/08/19 22:00 03/09/19 21:45 K-Dur - PO 40 meq HS IBETH Administration Ranitidine HCl 150 mg 03/08/19 22:00 03/10/19 09:51 Zantac - PO 150 mg BID IBETH Administration Senna 2 tab 03/08/19 15:55 Senna - PO HS PRN CONSTIPATION Tamsulosin HCl 0.4 mg 03/09/19 08:30 03/10/19 08:57 Flomax - PO 0.4 mg DAILY@0830 IBETH Administration ASSESSMENT AND PLAN: 53 year old female with history of Asthma, presented to ED with abdominal pain, and was found to have septic shock secondary to acute pyelonephritis. 1. Septic Shock secondary to Acute Pyelonephritis due to urinary obstruction by 7mm prox UPJ stone with Bacteremia Shock resolved. s/p IR guided Nephrostomy 03/01 with reversal 03/10 EColi bacteremia - treated with IV cefazolin (Day 10) s/p L JJ stent insertion on 03/08 Afebrile, Hemodynamically Stable. Medically optimized for discharge on 4 additional days of Abx therapy to complete 14 day course, with urology follow up s/p Nephrostomy reversal. 2. IVCKI - sec to Obstructive uropathy - resolved. 3. Thrombocytopenia sec to Sepsis - resolved. 4. Asthma - Stable. no evidence of acute exacerbation. 5. Iron Deficiency Anemia - Iron Sat 3. Ferrous Sulfate supplementation. GI follow up as out-patient for Colonoscopy. 6. Troponinemia - secondary to demand ischemia due to septic shock. TnI max 0.18. Cardio follow up as out-patient. Medically optimized for discharge.
== END 2019-03-10 20:55 | disposition home or self-care (01) | DRG 710 ==
LOC: JER 00:34 → JERBED 04:55 → JICU 14:42 → J8W 03-04 19:37
PROVIDERS: ADMIT Internal Medicine
PROC: 0T9430Z Drainage of Left Kidney Pelvis with Drainage Device, Percutaneous Approach (ICD-10-PCS; principal; 2019-02-28)
PROC: BT1FZZZ Fluoroscopy of Left Kidney, Ureter and Bladder (ICD-10-PCS; 2019-03-08)
PROC: 0TJB8ZZ Inspection of Bladder, Via Natural or Artificial Opening Endoscopic (ICD-10-PCS; 2019-03-08)
PROC: 0T748DZ Dilation of Left Kidney Pelvis with Intraluminal Device, Via Natural or Artificial Opening Endoscopic (ICD-10-PCS; 2019-03-08 13:30)
PROC: 0TP5X0Z Removal of Drainage Device from Kidney, External Approach (ICD-10-PCS; 2019-03-10)
DX: A41.51 Sepsis due to Escherichia coli [E. coli] (principal); R65.21 Severe sepsis with septic shock; N17.9 Acute kidney failure, unspecified; E87.2 Acidosis; I24.8 Other forms of acute ischemic heart disease; D69.59 Other secondary thrombocytopenia; I95.9 Hypotension, unspecified; N13.2 Hydronephrosis with renal and ureteral calculous obstruction; I47.1 Supraventricular tachycardia; N10 Acute pyelonephritis; E87.6 Hypokalemia; D50.9 Iron deficiency anemia, unspecified; B37.3 Candidiasis of vulva and vagina; J45.909 Unspecified asthma, uncomplicated; E66.9 Obesity, unspecified; K21.9 Gastro-esophageal reflux disease without esophagitis; Z68.36 Body mass index [BMI] 36.0-36.9, adult; R19.7 Diarrhea, unspecified; F41.9 Anxiety disorder, unspecified; F32.9 Major depressive disorder, single episode, unspecified; K59.00 Constipation, unspecified
CPT/HCPCS: 36415; 50389; 50432; 71045-TC-FY; 74176-TC; 76000-TC-FY; 76098-TC-FY; 77002-TC-FY; 80048; 80053; 81003; 82436; 82550; 82553; 82728; 83540; 83550; 83605; 83690; 83735; 83930; 83935; 84100; 84133; 84300; 84436; 84443; 84484; 85025; 85027; 85044; 85610; 85730; 86850; 86900; 86901; 87040; 87086; 87186; 87899; 93005; 93010; 93306-TC; 93970-TC; 94010; 94640; 94760; 97116-GP; 97162-GP; 99285-25; C1729; C1769; J0131

== ENCOUNTER 2019-03-13 20:18 | Emergency (ER) | payer OTHER ==
[2019-03-13 20:28] VITALS: BP 124/91; PULSE 88; TEMP 98.4; BMI 33.6
--- NOTE | 2019-03-13 20:41 | PDOC ---
History of Present Illness - General Chief Complaint: Lightheaded Stated Complaint: DIZZY History Source: Patient Exam Limitations: No Limitations - History of Present Illness Initial Comments: 03/13/19 20:49 53 year old F with past medical history of asthma and hypokalemia recently admitted to [facility] for septic obstructive stone with sequela of VICKI, pyelopephritis, septic shock presents to the emergency department with lightheadedness for 3 days. Per the patient, she received a ureteral stent placed on the left side. She states she has generalized weakness without FND. She states she had SOB. In the last 24 hours, her urinary output has been less and she states she feels a pressure sensation when urinating. Denies the following: fever, chills, chest pain, abdominal pain, nausea, vomiting, constipation, diarrhea, hematochezia, dysuria, hematuria, and leg pain/ swelling. Social: Denies tobacco, alcohol, and substance abuse. Past History - Past Medical History Allergies/Adverse Reactions: Allergies Allergy/AdvReac Type Severity Reaction Status Date / Time polyethylene glycol Allergy Severe Difficulty Verified 03/14/19 00:31 Breathing latex Allergy Mild Verified 03/14/19 00:31 lidocaine Allergy Verified 03/14/19 00:31 paprika Allergy Verified 03/14/19 00:31 peanut Allergy Difficulty Verified 03/14/19 00:31 Breathing procaine HCl [From Novocain] Allergy Verified 03/14/19 00:31 POLYURETHANE Allergy Intermediate Swelling Uncoded 03/14/19 00:31 shrimp Allergy Intermediate Hives Uncoded 03/14/19 00:31 Home Medications: Ambulatory Orders Potassium Chloride [K-Tab ER] 10 meq PO BID 02/05/16 Diphenhydramine HCl [Benadryl Capsule -] 25 mg PO Q6H 06/06/17 Albuterol 0.083% Nebulizer Maddie [Ventolin 0.083% Nebulizer Soln -] 1 neb NEB QID PRN 02/28/19 Albuterol Sulfate Inhaler - [Ventolin HFA Inhaler -] 1 - 2 inh PO QID PRN Ranitidine HCl [Zantac] 300 mg PO BID 02/28/19 Atorvastatin Ca [Lipitor] 20 mg PO HS 30 Days #30 tablet 03/10/19 Cephalexin [Keflex] 500 mg PO Q8H 4 Days #12 capsule 03/10/19 Ferrous Sulfate [Feosol] 325 mg PO BID #60 tablet 03/10/19 Albuterol 0.083% Nebulizer Maddie [Ventolin 0.083% Nebulizer Soln -] 1 amp NEB DAILY #1 amp 03/14/19 Cephalexin Monohydrate [Keflex -] 500 mg PO Q8H #15 capsule 03/14/19 Potassium Chloride [K-Dur -] 40 meq PO DAILY #28 tablet.er 03/14/19 Anemia: (HYPOKALEMIA) Asthma: Yes Cardiac Disorders: Yes (SVT) COPD: No DVT: No GI Disorders: Yes (ulcer) Disorders: Yes (right ovarian cyst status post surgery, status post hysterectomy, still has) HTN: Yes (?) Kidney Stones: (Kidney problems.) Psychiatric Problems: Yes (anxiety, depression) - Surgical History Abdominal Surgery: Yes (hysterectomy and right oophorectomy) - Family Disease History Family Disease History: Diabetes: Mother - Immunization History Td Vaccination: No TDAP Vaccination: No Immunization Up to Date: Yes - Suicide/Smoking/Psychosocial Hx Smoking Status: No Smoking History: Never smoked Years of Tobacco Use: 0 Have you smoked in the past 12 months: No Number of Cigarettes Smoked Daily: 0 Cigars Per Day: 0 Hx Alcohol Use: No Drug/Substance Use Hx: No Substance Use Type: None Hx Substance Use Treatment: No Review of Systems - Review of Systems Able to Perform ROS?: Yes Is the patient limited Albanian proficient: No Constitutional: Yes: Weakness. No: Chills, Diaphoresis, Fever HEENTM: No: Eye Pain, Ear Pain, Nose Pain, Throat Pain, Mouth Pain Respiratory: Yes: Shortness of Breath. No: Cough, Hemoptysis Cardiac (ROS): No: Chest Pain, Lightheadedness, Palpitations, Syncope ABD/GI: No: Constipated, Diarrhea, Nausea, Rectal Bleeding, Vomiting, Tarry Stools : Yes: Other (urinary pressure). No: Burning, Dysuria, Hematuria Musculoskeletal: No: Back Pain, Joint Pain, Neck Pain Integumentary: No: Bruising, Erythema, Rash Neurological: No: Headache, Numbness, Tingling, Tremors Psychiatric: No: Change in Appetite Endocrine: No: Unexplained Weight Gain Hematologic/Lymphatic: No: Anemia *Physical Exam - Vital Signs Last Vital Signs Temp Pulse Resp BP Pulse Ox 98.4 F 88 19 124/91 97 03/13/19 20:22 03/13/19 20:22 03/13/19 20:22 03/13/19 20:22 03/13/19 20:22 - Physical Exam General Appearance: Yes: Nourished, Appropriately Dressed. No: Apparent Distress, Intoxicated HEENT: positive: EOMI, [place]IT[place], Normal Voice, Symmetrical, Pharynx Normal, Hearing Grossly Normal. negative: Pale Conjunctivae, Scleral Icterus (R), Scleral Icterus (L), Muffled/Hoarse voice, Pharyngeal Erythema, Tonsillar Exudate, Tonsillar Erythema, Nasal Congestion, Rhinorrhea, Excessive drooling Neck: positive: Trachea midline, Supple. negative: Tender, Lymphadenopathy (R) , Lymphadenopathy (L), Tender lateral, Tender midline Respiratory/Chest: positive: Lungs Clear, Normal Breath Sounds. negative: Chest Tender, Respiratory Distress, Accessory Muscle Use, Rapid RR, Crackles, Rales, Rhonchi, Stridor, Wheezing Cardiovascular: positive: Regular Rhythm, Regular Rate, S1, S2. negative: Systolic Murmur Gastrointestinal/Abdominal: positive: Normal Bowel Sounds, Flat, Soft. negative : Tender Lymphatic: negative: Adenopathy Musculoskeletal: negative: Normal Inspection (nephrostomy tube scar noted left side), CVA Tenderness, Vertebral Tenderness Extremity: positive: Normal Capillary Refill, Normal Inspection, Normal Range of Motion. negative: Tender Integumentary: positive: Normal Color, Dry, Warm. negative: Swelling, Ecchymosis, Bruising Neurologic: positive: alignment technician II-XII NML intact, Fully Oriented, Alert, Normal Mood/ Affect, Normal Response, Motor Strength 5/5. negative: EOM Palsy, Facial Droop , Numbness, Sensory Deficit ED Treatment Course - LABORATORY CBC & Chemistry Diagram: 03/13/19 22:20 03/13/19 22:20 Medical Decision Making - Medical Decision Making 53 year old F with past medical history of asthma and hypokalemia recently admitted to [facility] for septic obstructive stone with sequela of VICKI, pyelopephritis, septic shock presents to the emergency department with lightheadedness for 3 days. Initial vitals: Initial Vital Signs Temp Pulse Resp BP Pulse Ox 98.4 F 88 19 124/91 97 03/13/19 20:22 03/13/19 20:22 03/13/19 20:22 03/13/19 20:22 03/13/19 20:22 Work up: patient states she has had similar symptoms when told she was anemic. patient had POCUS done by me to assess renal system. left mild hydronephrosis was noted with 100 cc of urine noted. right ureteral jets present, unable to visualize left ureteral jets and stent is noted to be in place. Laboratory Tests 03/13/19 03/13/19 03/13/19 22:20 22:20 22:20 WBC 7.2 RBC 4.22 Hgb 12.2 Hct 36.0 MCV 85.3 MCH 28.8 MCHC 33.8 RDW 14.1 Plt Count 405 D MPV 6.9 L Absolute Neuts (auto) 3.9 Neutrophils % 54.3 D Lymphocytes % 34.7 D Monocytes % 5.3 Eosinophils % 2.1 D Basophils % 3.6 H D Nucleated RBC % 0 Sodium 137 Potassium 3.9 Chloride 104 Carbon Dioxide 27 Anion Gap 6 L BUN 21.4 H Creatinine 0.7 Est GFR (CKD-EPI)AfAm 113.05 Est GFR (CKD-EPI)NonAf 97.54 Random Glucose 102 Calcium 9.0 Magnesium 2.4 Total Bilirubin 0.3 AST 22 ALT 19 Alkaline Phosphatase 89 Creatine Kinase 64 Troponin I < 0.02 Total Protein 7.1 Albumin 4.0 Urine Color Urine Appearance Urine pH Ur Specific [place] Urine Protein Urine Glucose (UA) Urine Ketones Urine Blood Urine Nitrite Urine Bilirubin Urine Urobilinogen Ur Leukocyte Esterase Urine WBC (Auto) Urine RBC (Auto) Urine Casts (Auto) U Epithel Cells (Auto) Urine Bacteria (Auto) 03/13/19 22:20 WBC RBC Hgb Hct MCV MCH MCHC RDW Plt Count MPV Absolute Neuts (auto) Neutrophils % Lymphocytes % Monocytes % Eosinophils % Basophils % Nucleated RBC % Sodium Potassium Chloride Carbon Dioxide Anion Gap BUN Creatinine Est GFR (CKD-EPI)AfAm Est GFR (CKD-EPI)NonAf Random Glucose Calcium Magnesium Total Bilirubin AST ALT Alkaline Phosphatase Creatine Kinase Troponin I Total Protein Albumin Urine Color Yellow Urine Appearance Cloudy Urine pH 5.5 Ur Specific [place] 1.020 Urine Protein 2+ H Urine Glucose (UA) Negative Urine Ketones Negative Urine Blood 3+ H Urine Nitrite Negative Urine Bilirubin Negative Urine Urobilinogen 0.2 Ur Leukocyte Esterase 1+ H Urine WBC (Auto) 12 Urine RBC (Auto) 311 Urine Casts (Auto) 3 U Epithel Cells (Auto) 7.0 Urine Bacteria (Auto) 4.9 no anemia noted. patient has a UTI. Patient will be prescribed an extension of her keflex prescription for another 5 days. In addition, the patient was prescribed potassium as this was originally prescribed at discharged. Patient was given duoneb for cough that had symptomatic relief. CXR was negative. EKG was NSR without ARPAN or ST depressions. Patient to be discharged. Dispo: Discharge *DC/Admit/Observation/Transfer Diagnosis at time of Disposition: UTI (urinary tract infection) - Discharge Dispostion Disposition: HOME Condition at time of disposition: Fair Decision to Admit order: No - Prescriptions Prescriptions: Albuterol 0.083% Nebulizer Maddie [Ventolin 0.083% Nebulizer Soln -] 1 amp NEB DAILY #1 amp Cephalexin Monohydrate [Keflex -] 500 mg PO Q8H #15 capsule Potassium Chloride [K-Dur -] 40 meq PO DAILY #28 tablet.er - Referrals Referrals: [facility] [Provider Group] - Patient Instructions Printed Discharge Instructions: DI for Urinary Tract Infection (UTI), DI for Hypokalemia Additional Instructions: You were seen in the emergency department for the evaluation of your urinary pressure and weakness. Your labs indicate the presence of a continued urinary tract infection. You have been given an additional 5 days of keflex to take after today. Please also find the prescription of albuterol nebulizer and potassium at [facility] sent under your name. In addition, please follow up with your primary medical doctor and urologist within 1 week after discharge. Please continue taking your medications as prescribed. Please stop taking the iron supplements. Thank you. Please return to the emergency department if you have worsening symptoms or new concerning symptoms such as fever, confusion, or ascending pain or uncontrollable nausea and vomiting. Thank you. - Post Discharge Activity
[2019-03-13 22:29] LABS: BASO % 3.6 % (0-2.0); EOS % 2.1 % (0-4.5); HEMOGLOBIN 12.2 GM/dL (10.7-15.3); LYMPH % 34.7 % (8-40); MCH 28.8 pg (25.7-33.7); MCHC 33.8 g/dl (32.0-36.0); MEAN CELL VOLUME 85.3 fl (80-96); MEAN PLT VOLUME 6.9 fl (7.5-11.1); MONO % 5.3 % (3.8-10.2); NEUT % 54.3 % (42.8-82.8); PLATELET COUNT 405 K/MM3 (134-434); RBC 4.22 M/mm3 (3.60-5.2); RDW 14.1 % (11.6-15.6); WHITE BLOOD COUNT 7.2 K/mm3 (4.0-10.0)
[2019-03-13 22:30] LABS: HYALINE CASTS 3 /lpf (0-8); PH,URINE 5.5 (5.0-8.0); URINE APPEARANCE CLOUDY; URINE BACTERIA 4.9 /hpf (NEGATIVE); URINE BILIRUBIN NEGATIVE (NEGATIVE); URINE COLOR YELLOW; URINE GLUCOSE (UA) NEGATIVE (NEGATIVE); URINE KETONE NEGATIVE (NEGATIVE); URINE LEUK ESTERASE 1+ (NEGATIVE); URINE NITRITE NEGATIVE (NEGATIVE); URINE PROTEIN 2+ (NEGATIVE); URINE RBC 311 /hpf (0-4); URINE UROBILINOGEN 0.2 mg/dL (0.2-1.0); URINE WBC 12 /hpf (0-5)
--- NOTE | 2019-03-13 22:54 | PDOC ---
Documentation entered by Harrison Green SCRIBE, acting as scribe for Nancy Ang MD. Nancy Ang MD: This documentation has been prepared by the Norma kim Elijah, SCRIBE, under my direction and personally reviewed by me in its entirety. I confirm that the documentation accurately reflects all work, treatment, procedures, and medical decision making performed by me. Attending Attestation - Resident Resident Name: Peterson Guevara - ED Attending Attestation I have performed the following: I have examined & evaluated the patient, The case was reviewed & discussed with the resident, I agree w/resident's findings & plan - HPI HPI: 03/13/19 21:15 Patient is a 53 year old female with a significant past medical history of Asthma and Hypokalemia, recent admitted for septic obstructed stone c/b obstructive uropathy, pyelonephritis, VICKI who presents to the ED with lightheadedness lasting for x3 days. Patient was recently admitted and discharged with septic shock secondary to urinary stone and has ureteral stent in place. Patient associates generalized weakness, overall fatigue and SOB. Yesterday, patient began to notice less urinary output and some suprapubic pressure. Denies fever, chills, chest pain, palpitation, dizziness, weakness, N, V, D, abdominal pain, urinary symptoms and bowel problems, leg swelling, No sick contacts or travel. No new changes in medications.\ Allergies: Polyethylene glycol, latex, lidocaine, Polyurethane, Shrimp, Paprika , Procaine HCL, Peanut. -- 03/13/19 22:32 - Physicial Exam PE: 03/13/19 21:29 General: Well appearing, awake and alert, NAD. HEENT: NCAT, PERRL, EOMI, clear conjunctiva, anicteric, moist mucous membranes , clear oropharynx, no oral lesions.. Neck: neck supple, FROM Resp: CTAB, normal and even respirations, no respiratory distress; coughing CVS: RRR, no murmurs, 2+ peripheral pulses throughout, no peripheral edema Abdomen: soft, NTND, no rebound or guarding. No CVAT. Back: nontender, normal inspection and ROM MSK: no edema, MILLER x4, ROM intact. No clubbing or cyanosis. normal bulk and tone. Neuro: alert, oriented appropriately; no focal neurologic deficits Skin: warm and well perfused, cap refill <2 sec, normal color 03/14/19 00:19 - Medical Decision Making 03/13/19 22:36 See HPI for details. Prior notes reviewed, including admissions, discharges and consultations. Vital signs reviewed, wnl. Vital Signs Temp Pulse Resp BP Pulse Ox 98.4 F 88 19 124/91 97 03/13/19 20:22 03/13/19 20:22 03/13/19 20:22 03/13/19 20:22 03/13/19 20:22 laboratory results and imaging reviewed, basic labs and lytes wnl, UA positive, but has +E. coli and finishing Keflex abx for sensitive bacteria. bedside sono with ureteral stent seen, distended bladder, but volume 100cc. mild hydro to left kidney CXR_clear, unremarkable. Cardiac panel_neg, less likely cardiac EKG normal sinus rhythm 85 bpm, no interval abnormalities, narrow QRS, ST and T wave segments and morphology normal. ED course -no events. additional course of keflex TID x 5 more days, for complete tx of pyelo. no systemic findings/toxicity, no fever or abdominal complaints, so unlikely septic or bacteremic. given trial of duoneb x 1, for the cough and prior h/o asthma, no respiratory distress or wheezes. feels improved, has inhaler, requests albuterol neb prn for cough, likely viral cxr clear, no e/o pneumonia Pt to be discharged in stable condition. Patient and family made aware of clinical impression, treatment recommendations and disposition plan, return precautions discussed (including but not limited to new or persistent/worsening symptoms, pain, fevers, or signs of infection, chest pain, respiratory distress , inability to tolerate oral intake, dehydration, syncope, or neurologic changes ). Follow up with PMD and/or urologist specialist (Dr Van next week) as recommended, follow up information provided, take medications as instructed for duration of time. continue with supportive care, avoid triggers and precipitants. All questions answered to patient's satisfaction and expressed understanding and comfort with this. At the time of discharge, the patient is alert, clinically improved, tolerating po and verbalizes understanding of instructions, satisfied with the care received and felt comfortable with the plan. Patient does not suffer from an acute life-threatening medical condition at this time and is safe for outpatient follow-up. 03/13/19 22:37 03/14/19 00:20 Heart Score/ECG Review #1 ECG reviewed & interpreted by me at: 22:25 General ECG Interpretation: Sinus Rhythm, Normal Rate, Normal Intervals Compared to previous ECG there are: No significant change 03/13/19 22:54 EKG normal sinus rhythm 85 bpm, no interval abnormalities, narrow QRS, ST and T wave segments and morphology normal.
[2019-03-13 22:58] LABS: BILIRUBIN,TOTAL 0.3 mg/dL (0.2-1); BLOOD UREA NITROGEN 21.4 mg/dL (7-18); CREATININE 0.7 mg/dL (0.55-1.3); MAGNESIUM 2.4 mg/dL (1.8-2.4); POTASSIUM 3.9 mmol/L (3.5-5.1); TOT PROT 7.1 g/dl (6.4-8.2)
[2019-03-13] MEDS ORDERED: ALBUTEROL SO4 2.5/IPRATROPIUM 0.5 INH SOL 3 ML VIAL.NEB. NEB ONE (23:26)
--- NOTE | 2019-03-14 09:37 | EKG ---
Test Reason : Blood Pressure : / mmHG Vent. Rate : 085 BPM Atrial Rate : 085 BPM P-R Int : 142 ms QRS Dur : 084 ms QT Int : 378 ms P-R-T Axes : 048 038 051 degrees QTc Int : 449 ms NORMAL SINUS RHYTHM NORMAL ECG WHEN COMPARED WITH ECG OF 28-FEB-2019 15:26, NO SIGNIFICANT CHANGE WAS FOUND Confirmed by SAGAR DURAND MD ([id number]) on 03/14/2019 9:36:38 AM Referred By: Confirmed By:SAGAR DURAND MD
== END 2019-03-14 00:40 | disposition home or self-care (01) ==
LOC: JER 20:18
PROC: 3E0F7GC Introduction of Other Therapeutic Substance into Respiratory Tract, Via Natural or Artificial Opening (ICD-10-PCS; principal; 2019-03-13)
DX: N39.0 Urinary tract infection, site not specified (principal); E87.6 Hypokalemia; J45.909 Unspecified asthma, uncomplicated
CPT/HCPCS: 36415; 71046-TC-FY; 80053; 81003; 82550; 83735; 84484; 85025; 87086; 87186; 93005; 93010; 99282-25

== ENCOUNTER 2019-04-23 02:39 | Emergency (ER) | payer OTHER ==
--- NOTE | 2019-04-23 04:19 | PDOC ---
History of Present Illness - General Stated Complaint: BLOOD IN URINE,KIDNEY PAIN Time Seen by Provider: 04/23/19 03:55 History Source: Patient Exam Limitations: No Limitations - History of Present Illness Initial Comments: 04/23/19 03:57 PCP:Dr. Dianne Martin HISTORY OF PRESENT ILLNESS: Ms Rubio is a 53 yo F past medical history of asthma, hypokalemia, presented to the ED due to left flank pain Pt was recently admitted for sepsis secondary to pyelonephritis and obstructing kidney stone. She currently has a left renal stent with plan for lithotripsy in May Pt has noted a slight increase in hematuria and slight flank pain Chills, no fevers Denies fever, chills,headache, dizziness, chest pain, SOB, abdominal pain, dysuria, hematuria. PAST MEDICAL HISTORY: Asthma Hypokalemia PAST SURGICAL HISTORY: Social History: Smoking:denies Alcohol:denies Drugs: denies Family History:noncontributory Allergies: please see MAR ROS: GENERAL/CONSTITUTIONAL: No: fever, CARDIOVASCULAR: No: chest pain, lightheadedness, palpitations, syncope RESPIRATORY: No: cough, shortness of breath, wheezing GASTROINTESTINAL: No: nausea, vomiting, diarrhea, abdominal cramping GENITOURINARY: Yes: hematuria, frequency, urgency, flank pain. MUSCULOSKELETAL: No: back pain, neck pain, joint pain, muscle swelling or pain SKIN: No: lesions, pallor, rash or easy bruising. NEUROLOGIC: No: headache, vertigo, paresthesias, weakness ENDOCRINE: No: unexplained weight gain or loss HEMATOLOGIC/LYMPHATIC: No: anemia, easy bleeding, swelling nodes. PE: GENERAL: The patient is in no acute distress. HEAD: Normal EYES: PERRLA, EOMI, sclera anicteric, conjunctiva clear. ENT: Ears normal, nares patent, oropharynx clear without exudates. Moist mucous membranes. NECK: Normal range of motion, supple LUNGS: Breath sounds equal, clear to auscultation bilaterally. No wheezes, and no crackles. HEART:Regular rate and rhythm, normal S1 and S2 without murmur, rub or gallop. ABDOMEN: Soft, nontender, normoactive bowel sounds. No guarding, no rebound. EXTREMITIES: Normal range of motion, no edema. NEUROLOGICAL: Cranial nerves II through XII grossly intact. Normal speech. No focal neurological deficits. MUSCULOSKELETAL: Left Flank CVA tenderness SKIN: Warm, Dry, normal turgor, no rashes or lesions noted. 04/23/19 22:04 Is this a multiple visit Asthma Patient?: No Past History - Past Medical History Allergies/Adverse Reactions: Allergies Allergy/AdvReac Type Severity Reaction Status Date / Time polyethylene glycol Allergy Severe Difficulty Verified 04/23/19 04:04 Breathing latex Allergy Mild Verified 04/23/19 04:04 lidocaine Allergy Verified 04/23/19 04:04 paprika Allergy Verified 04/23/19 04:04 peanut Allergy Difficulty Verified 04/23/19 04:04 Breathing procaine HCl [From Novocain] Allergy Verified 04/23/19 04:04 POLYURETHANE Allergy Intermediate Swelling Uncoded 04/23/19 04:04 shrimp Allergy Intermediate Hives Uncoded 04/23/19 04:04 Home Medications: Ambulatory Orders Potassium Chloride [K-Tab ER] 10 meq PO BID 02/05/16 Diphenhydramine HCl [Benadryl Capsule -] 25 mg PO Q6H 06/06/17 Albuterol 0.083% Nebulizer Maddie [Ventolin 0.083% Nebulizer Soln -] 1 neb NEB QID PRN 02/28/19 Albuterol Sulfate Inhaler - [Ventolin HFA Inhaler -] 1 - 2 inh PO QID PRN Ranitidine HCl [Zantac] 300 mg PO BID 02/28/19 Atorvastatin Ca [Lipitor] 20 mg PO HS 30 Days #30 tablet 03/10/19 Cephalexin [Keflex] 500 mg PO Q8H 4 Days #12 capsule 03/10/19 Ferrous Sulfate [Feosol] 325 mg PO BID #60 tablet 03/10/19 Albuterol 0.083% Nebulizer Maddie [Ventolin 0.083% Nebulizer Soln -] 1 amp NEB DAILY #1 amp 03/14/19 Cephalexin Monohydrate [Keflex -] 500 mg PO Q8H #15 capsule 03/14/19 Potassium Chloride [K-Dur -] 40 meq PO DAILY #28 tablet.er 03/14/19 Cefpodoxime Proxetil [Vantin -] 200 mg PO Q12H #20 tablet 04/23/19 Anemia: (HYPOKALEMIA) Asthma: Yes Cardiac Disorders: Yes (SVT) COPD: No DVT: No GI Disorders: Yes (ulcer) Disorders: Yes (right ovarian cyst status post surgery, status post hysterectomy, still has) HTN: Yes (?) Kidney Stones: (Kidney problems.) Psychiatric Problems: Yes (anxiety, depression) - Surgical History Abdominal Surgery: Yes (hysterectomy and right oophorectomy) - Immunization History Td Vaccination: No TDAP Vaccination: No Immunization Up to Date: Yes - Psycho Social/Smoking Cessation Hx Smoking Status: No Smoking History: Never smoked Years of Tobacco Use: 0 Have you smoked in the past 12 months: No Number of Cigarettes Smoked Daily: 0 Cigars Per Day: 0 Hx Alcohol Use: No Drug/Substance Use Hx: No Substance Use Type: None Hx Substance Use Treatment: No ED Treatment Course - LABORATORY CBC & Chemistry Diagram: 04/23/19 05:00 04/23/19 05:00 Medical Decision Making - Medical Decision Making 04/23/19 05:42 Laboratory Tests 04/23/19 04/23/19 04/23/19 04:40 05:00 05:00 WBC 6.5 Hgb 11.8 Hct 35.0 Plt Count 294 D BUN 19.8 H Creatinine 0.7 Ur Leukocyte Esterase 3+ H Urine WBC (Auto) 401 U Epithel Cells (Auto) 11.9 Urine Bacteria (Auto) 6555.7 Xray pending 04/23/19 06:00 Pt would like to leave the ER She can not stay for Xray Pt refusing to stay in the hospital We had a long conversation about her urine infection and my discomfort with her going home I have explained that at this point, I am not certain that this is NOT pseudomonas again If that is the case, she will need IV abx Pt would like to go home She will return to the ER in the event she gets a fever or feels worse 04/23/19 06:02 Note: The patient insists on leaving the emergency dept and is signing out against medical advice. The patient understands the risks and complications that may result from the refusal of medical care and admission which includes and permanent disability. The patient has the mental capacity of understanding the risks of refusing care and is capable of making an informed decision. The patient was instructed to return to the emergency department should she change her mind regarding medical care or should her condition worsen. The patient signed the Against Medical Advice form. Discharge - Discharge Information Problems reviewed: Yes Clinical Impression/Diagnosis: Urinary tract infection Qualifiers: Urinary tract infection type: site unspecified Hematuria presence: with hematuria Qualified Code(s): N39.0 - Urinary tract infection, site not specified Condition: Good Disposition: HOME - Admission No - Additional Discharge Information Prescriptions: Cefpodoxime Proxetil [Vantin -] 200 mg PO Q12H #20 tablet - Follow up/Referral - Patient Discharge Instructions Patient Printed Discharge Instructions: DI for Urinary Tract Infection (UTI), DI for Ureteral Stent Placement Additional Instructions: Thank you for coming in to the ER today Return to the emergency department immediately with ANY new, persistent or worsening symptoms. Continue any medications as previously prescribed by your physician. Please take antibiotics as prescribed You must take your temperature and return immediately for fevers You should follow up with your primary doctor as soon as possible regarding today's emergency department visit. Thank you for coming to the [facility] today for your care. It was a pleasure to see you today. Please note that your evaluation is INCOMPLETE until you follow-up with your doctor. - Post Discharge Activity
[2019-04-23 04:32] VITALS: BP 118/80; PULSE 82; TEMP 97.8; BMI 33.6
[2019-04-23 05:00] LABS: EPI CELLS 11.9 /HPF (0-5/HPF); HYALINE CASTS 8 /lpf (0-8); PH,URINE 5.5 (5.0-8.0); URINE APPEARANCE TURBID; URINE BACTERIA 6555.7 /hpf (NEGATIVE); URINE BILIRUBIN NEGATIVE (NEGATIVE); URINE COLOR ORANGE; URINE GLUCOSE (UA) NEGATIVE (NEGATIVE); URINE KETONE NEGATIVE (NEGATIVE); URINE LEUK ESTERASE 3+ (NEGATIVE); URINE NITRITE NEGATIVE (NEGATIVE); URINE PROTEIN 2+ (NEGATIVE); URINE RBC 283 /hpf (0-4); URINE UROBILINOGEN 0.2 mg/dL (0.2-1.0); URINE WBC 401 /hpf (0-5)
[2019-04-23 05:08] LABS: BASO % 0.9 % (0-2.0); HEMOGLOBIN 11.8 GM/dL (10.7-15.3); LYMPH % 25.2 % (8-40); MCHC 33.8 g/dl (32.0-36.0); MEAN CELL VOLUME 85.7 fl (80-96); MEAN PLT VOLUME 6.8 fl (7.5-11.1); MONO % 7.3 % (3.8-10.2); NEUT % 64.6 % (42.8-82.8); PLATELET COUNT 294 K/MM3 (134-434); RBC 4.08 M/mm3 (3.60-5.2); RDW 14.2 % (11.6-15.6); WHITE BLOOD COUNT 6.5 K/mm3 (4.0-10.0)
[2019-04-23 05:37] LABS: ALBUMIN 4.1 g/dl (3.4-5.0); BILIRUBIN,TOTAL 0.2 mg/dL (0.2-1); BLOOD UREA NITROGEN 19.8 mg/dL (7-18); CALCIUM 9.2 mg/dL (8.5-10.1); CREATININE 0.7 mg/dL (0.55-1.3); POTASSIUM 4.1 mmol/L (3.5-5.1)
[2019-04-23 05:57] LABS: URINE CRYSTALS NONE SEEN /hpf
== END 2019-04-23 06:11 | disposition home or self-care (01) ==
LOC: JER 02:39
DX: N39.0 Urinary tract infection, site not specified (principal); R31.9 Hematuria, unspecified; E87.6 Hypokalemia; J45.909 Unspecified asthma, uncomplicated; I10 Essential (primary) hypertension; N28.9 Disorder of kidney and ureter, unspecified; I49.8 Other specified cardiac arrhythmias; Z90.710 Acquired absence of both cervix and uterus; Z90.721 Acquired absence of ovaries, unilateral; Z91.010 Allergy to peanuts; Z91.013 Allergy to seafood; Z91.018 Allergy to other foods; Z88.8 Allergy status to other drugs, medicaments and biological substances; Z91.02 Food additives allergy status; Z91.040 Latex allergy status
CPT/HCPCS: 36415; 80053; 81003; 85025; 87086; 87186; 99282-25

== ENCOUNTER 2019-04-26 17:26 | Emergency (ER) | payer OTHER ==
[2019-04-26 17:40] VITALS: BMI 33.3
--- NOTE | 2019-04-26 17:41 | PDOC ---
Rapid Medical Evaluation Chief Complaint: Hematuria Time Seen by Provider: 04/26/19 17:36 Medical Evaluation: Allergies Allergy/AdvReac Type Severity Reaction Status Date / Time polyethylene glycol Allergy Severe Difficulty Verified 04/23/19 04:04 Breathing latex Allergy Mild Verified 04/23/19 04:04 lidocaine Allergy Verified 04/23/19 04:04 paprika Allergy Verified 04/23/19 04:04 peanut Allergy Difficulty Verified 04/23/19 04:04 Breathing procaine HCl [From Novocain] Allergy Verified 04/23/19 04:04 POLYURETHANE Allergy Intermediate Swelling Uncoded 04/23/19 04:04 shrimp Allergy Intermediate Hives Uncoded 04/23/19 04:04 04/26/19 17:37 I have performed a brief in-person evaluation of this patient. The patient presents with a chief complaint of: c/o fever/chills, bodyaches, hematuria, burning/pain on urination. She was here on Friday, they wanted to admit her but she could not stay. She is ready to get admitted today if necessary. Pt took 500mg tylenol and 600mg motrin at 1:30p PT WAS PRESCRIBED CEFPODOXIME WHICH SHE HAS NOT BEEN TAKING BECAUSE SHE DID NOT THINK IT WAS GOING TO WORK. CULTURE IS SENSITIVE TO 3RD GEN CEPHALOSPORINS. L CVA tenderness on exam I have ordered the following: CBC, CMP The patient will proceed to the ED for further evaluation. 04/26/19 17:47 04/26/19 17:49 Discharge Disposition - Diagnosis Hematuria - Referrals - Patient Instructions - Post Discharge Activity
[2019-04-26 18:26] LABS: BASO % 1.4 % (0-2.0); EOS % 1.8 % (0-4.5); HEMATOCRIT 36.2 % (32.4-45.2); HEMOGLOBIN 12.1 GM/dL (10.7-15.3); MCH 28.6 pg (25.7-33.7); MCHC 33.4 g/dl (32.0-36.0); MEAN CELL VOLUME 85.7 fl (80-96); MEAN PLT VOLUME 7.1 fl (7.5-11.1); MONO % 7.5 % (3.8-10.2); NEUT % 74.3 % (42.8-82.8); PLATELET COUNT 268 K/MM3 (134-434); RBC 4.22 M/mm3 (3.60-5.2); RDW 14.2 % (11.6-15.6); WHITE BLOOD COUNT 8.8 K/mm3 (4.0-10.0)
[2019-04-26 18:53] LABS: ALBUMIN 3.9 g/dl (3.4-5.0); BILIRUBIN,TOTAL 0.2 mg/dL (0.2-1); BLOOD UREA NITROGEN 21.5 mg/dL (7-18); CALCIUM 8.7 mg/dL (8.5-10.1); POTASSIUM 4.1 mmol/L (3.5-5.1)
--- NOTE | 2019-04-26 19:25 | PDOC ---
History of Present Illness - General Chief Complaint: Hematuria Stated Complaint: HEMATURIA Time Seen by Provider: 04/26/19 17:36 History Source: Patient - History of Present Illness Initial Comments: 04/26/19 19:27 53 year old female vc/o hematuria, subjective fevers, left flank pain (11/20) x5 days. seen in this ER 3 days ago was told she needed to be admitted patient refused. patient reports that she has not picked up her antibiotics. + nausea, denies vomiting pmhx: LEFT INFECTED STONE S/P LEFT STENT, HYPOKALEMIA, urticaria from unknown allergen, GERD, recent urosepsis 04/26/19 21:25 Past History - Past Medical History Allergies/Adverse Reactions: Allergies Allergy/AdvReac Type Severity Reaction Status Date / Time polyethylene glycol Allergy Severe Difficulty Verified 04/23/19 04:04 Breathing latex Allergy Mild Verified 04/23/19 04:04 lidocaine Allergy Verified 04/23/19 04:04 paprika Allergy Verified 04/23/19 04:04 peanut Allergy Difficulty Verified 04/23/19 04:04 Breathing procaine HCl [From Novocain] Allergy Verified 04/23/19 04:04 POLYURETHANE Allergy Intermediate Swelling Uncoded 04/23/19 04:04 shrimp Allergy Intermediate Hives Uncoded 04/23/19 04:04 Home Medications: Ambulatory Orders Potassium Chloride [K-Tab ER] 10 meq PO BID 02/05/16 Diphenhydramine HCl [Benadryl Capsule -] 25 mg PO Q6H 06/06/17 Albuterol 0.083% Nebulizer Maddie [Ventolin 0.083% Nebulizer Soln -] 1 neb NEB QID PRN 02/28/19 Albuterol Sulfate Inhaler - [Ventolin HFA Inhaler -] 1 - 2 inh PO QID PRN Ranitidine HCl [Zantac] 300 mg PO BID 02/28/19 Atorvastatin Ca [Lipitor] 20 mg PO HS 30 Days #30 tablet 03/10/19 Cephalexin [Keflex] 500 mg PO Q8H 4 Days #12 capsule 03/10/19 Ferrous Sulfate [Feosol] 325 mg PO BID #60 tablet 03/10/19 Albuterol 0.083% Nebulizer Maddie [Ventolin 0.083% Nebulizer Soln -] 1 amp NEB DAILY #1 amp 03/14/19 Cephalexin Monohydrate [Keflex -] 500 mg PO Q8H #15 capsule 03/14/19 Potassium Chloride [K-Dur -] 40 meq PO DAILY #28 tablet.er 03/14/19 Cefpodoxime Proxetil [Vantin -] 200 mg PO Q12H #20 tablet 04/23/19 Anemia: (HYPOKALEMIA) Asthma: Yes Cardiac Disorders: Yes (SVT) COPD: No DVT: No GI Disorders: Yes (ulcer) Disorders: Yes (right ovarian cyst status post surgery, status post hysterectomy, still has) HTN: Yes (?) Kidney Stones: (Kidney problems.) Psychiatric Problems: Yes (anxiety, depression) - Surgical History Abdominal Surgery: Yes (hysterectomy and right oophorectomy) - Immunization History Td Vaccination: No TDAP Vaccination: No Immunization Up to Date: Yes - Psycho Social/Smoking Cessation Hx Smoking Status: No Smoking History: Never smoked Years of Tobacco Use: 0 Have you smoked in the past 12 months: No Number of Cigarettes Smoked Daily: 0 Cigars Per Day: 0 Information on smoking cessation initiated: No Hx Alcohol Use: No Drug/Substance Use Hx: No Substance Use Type: None Hx Substance Use Treatment: No Abd/GI Specific PMHX - Complaint Specific PMHX GERD: No GI Ulcer Disease: No Review of Systems - Review of Systems Able to Perform ROS?: Yes Is the patient limited [place]er proficient: No ABD/GI: Yes: Nausea, Abdominal cramping (RUQ pain) : Yes: Dysuria, Flank Pain, Hematuria *Physical Exam - Vital Signs Last Vital Signs Temp Pulse Resp BP Pulse Ox 98.2 F 108 H 18 135/90 98 04/26/19 17:36 04/26/19 17:36 04/26/19 17:36 04/26/19 17:36 04/26/19 17:36 - Physical Exam General Appearance: Yes: Appropriately Dressed Respiratory/Chest: positive: Lungs Clear, Normal Breath Sounds Cardiovascular: positive: Regular Rhythm, Tachycardia Gastrointestinal/Abdominal: positive: Normal Bowel Sounds, Tender (RUQ tenderness), Other (suprapubic tendernes) Musculoskeletal: positive: CVA Tenderness (L) Extremity: positive: Normal Capillary Refill, Normal Inspection, Normal Range of Motion Integumentary: positive: Normal Color, Dry, Warm Neurologic: positive: Fully Oriented, Alert ED Treatment Course - LABORATORY CBC & Chemistry Diagram: 04/26/19 18:20 04/26/19 18:20 - ADDITIONAL ORDERS Additional order review: Laboratory Results 04/26/19 18:20 Sodium 141 Potassium 4.1 Chloride 107 Carbon Dioxide 26 Anion Gap 8 BUN 21.5 H Creatinine 1.0 Est GFR (CKD-EPI)AfAm 73.45 Est GFR (CKD-EPI)NonAf 63.37 Random Glucose 98 Calcium 8.7 Total Bilirubin 0.2 AST 14 L ALT 17 Alkaline Phosphatase 84 Total Protein 7.0 Albumin 3.9 04/26/19 18:20 RBC 4.22 MCV 85.7 MCHC 33.4 RDW 14.2 MPV 7.1 L Neutrophils % 74.3 Lymphocytes % 15.0 D Monocytes % 7.5 Eosinophils % 1.8 Basophils % 1.4 ED Progress Note - Progress Note Progress Note: 04/26/19 20:53 A: left flank pain Pyelonephritis P: labs IVF ua urine culture ceftriaxone Medical Decision Making - Medical Decision Making 04/26/19 21:40 Right patient offered admission for IV antibiotics due to recent urosepsis and complicated UTI/Blaise. Patient reports that she has not taken the oral antibiotic which was prescribed on 04/23/2019. Given 1 dose of ceftriaxone here. CBC within normal limits no leukocytosis noted no bandemia. Strict return precautions were reviewed with patient. Patient to return for any worsening symptoms. Patient at this time refused inpatient management would like to try outpatient therapy . Patient has an appointment with urology Dr. Landeros Discharge - Discharge Information Problems reviewed: Yes Clinical Impression/Diagnosis: Pyelonephritis - Follow up/Referral - Patient Discharge Instructions Patient Printed Discharge Instructions: Kidney Infection Additional Instructions: Increase fluids Please return to emergency department any increased pain, inability to void, increased bleeding, back pain, fever or other concerns. Please follow up at the primary care DrNehemias symptoms persist in 2 days Medications as prescribed Motrin for pain drink plenty of fluids Take ibuprofen every 6 hours as needed for pain You may take Pyridium for the burning of urination. it can turn year her urine orange and can make you sweat orange Take cefpodoxime as prescribved Follow-up with your urologist as soon as possible. You need to repeat urine test once your antibiotic is completed. We will call you if you're antibiotic needs to be changed. - Post Discharge Activity Work/Back to School Note: Back to Work
--- NOTE | 2019-04-26 19:32 | PDOC ---
*Physical Exam - Vital Signs Last Vital Signs Temp Pulse Resp BP Pulse Ox 98.2 F 108 H 18 135/90 98 04/26/19 17:36 04/26/19 17:36 04/26/19 17:36 04/26/19 17:36 04/26/19 17:36 ED Treatment Course - LABORATORY CBC & Chemistry Diagram: 04/26/19 18:20 04/26/19 18:20 - ADDITIONAL ORDERS Additional order review: Laboratory Results 04/26/19 18:20 Sodium 141 Potassium 4.1 Chloride 107 Carbon Dioxide 26 Anion Gap 8 BUN 21.5 H Creatinine 1.0 Est GFR (CKD-EPI)AfAm 73.45 Est GFR (CKD-EPI)NonAf 63.37 Random Glucose 98 Calcium 8.7 Total Bilirubin 0.2 AST 14 L ALT 17 Alkaline Phosphatase 84 Total Protein 7.0 Albumin 3.9 04/26/19 18:20 RBC 4.22 MCV 85.7 MCHC 33.4 RDW 14.2 MPV 7.1 L Neutrophils % 74.3 Lymphocytes % 15.0 D Monocytes % 7.5 Eosinophils % 1.8 Basophils % 1.4 Medical Decision Making - Medical Decision Making 04/26/19 19:32 Patient seen by the advanced practice provider under my direct supervision. Ancillary testing reviewed as necessary. I agree with plan as outlined by the advanced practice provider. Discharge - Discharge Information Problems reviewed: Yes Clinical Impression/Diagnosis: Pyelonephritis - Follow up/Referral - Patient Discharge Instructions Patient Printed Discharge Instructions: Kidney Infection Additional Instructions: Increase fluids Please return to emergency department any increased pain, inability to void, increased bleeding, back pain, fever or other concerns. Please follow up at the primary care Dr. symptoms persist in 2 days Medications as prescribed Motrin for pain drink plenty of fluids Take ibuprofen every 6 hours as needed for pain You may take Pyridium for the burning of urination. it can turn year her urine orange and can make you sweat orange Take cefpodoxime as prescribved Follow-up with your urologist as soon as possible. You need to repeat urine test once your antibiotic is completed. We will call you if you're antibiotic needs to be changed. - Post Discharge Activity Work/Back to School Note: Back to Work
[2019-04-26] MEDS ORDERED: CEFTRIAXONE 1,000 MG in DEXTROSE 5%-WATER - 50 ML IVPB ONE (19:41)
[2019-04-26] MEDS ORDERED: SODIUM CHLORIDE 1,000 ML IV STA (19:41)
[2019-04-26] MEDS ORDERED: CEFTRIAXONE 1 GM/50 ML BAG ONE (19:44)
[2019-04-26] MEDS ORDERED: ACETAMINOPHEN 500 MG TABLET (FP) PO ONE (20:30)
[2019-04-26] MEDS ORDERED: ACETAMINOPHEN 325 MG TABLET (FP) ONE (20:45)
[2019-04-26 21:14] LABS: EPI CELLS 2.7 /HPF (0-5/HPF); HYALINE CASTS 4 /lpf (0-8); PH,URINE 5.5 (5.0-8.0); URINE APPEARANCE TURBID; URINE BACTERIA 6379.9 /hpf (NEGATIVE); URINE BILIRUBIN NEGATIVE (NEGATIVE); URINE COLOR YELLOW; URINE GLUCOSE (UA) NEGATIVE (NEGATIVE); URINE KETONE NEGATIVE (NEGATIVE); URINE LEUK ESTERASE 3+ (NEGATIVE); URINE NITRITE NEGATIVE (NEGATIVE); URINE PROTEIN 2+ (NEGATIVE); URINE RBC 384 /hpf (0-4); URINE UROBILINOGEN 0.2 mg/dL (0.2-1.0); URINE WBC 425 /hpf (0-5)
[2019-04-26 22:04] VITALS: BP 137/68; PULSE 80; TEMP 99
--- NOTE | 2019-04-27 14:59 | PDOC ---
*Physical Exam - Vital Signs Last Vital Signs Temp Pulse Resp BP Pulse Ox 99.0 F 80 17 137/68 99 04/26/19 21:39 04/26/19 21:39 04/26/19 21:39 04/26/19 21:39 04/26/19 21:39 ED Treatment Course - LABORATORY CBC & Chemistry Diagram: 04/26/19 18:20 04/26/19 18:20 - ADDITIONAL ORDERS Additional order review: 04/26/19 18:20 RBC 4.22 MCV 85.7 MCHC 33.4 RDW 14.2 MPV 7.1 L Neutrophils % 74.3 Lymphocytes % 15.0 D Monocytes % 7.5 Eosinophils % 1.8 Basophils % 1.4 - Medications Given in the ED: ED Medications Discontinued Medications Generic Name Dose Route Start Last Admin Trade Name Alexi PRN Reason Stop Dose Admin Acetaminophen 1,000 mg 04/26/19 20:30 04/26/19 20:35 Tylenol - PO 04/26/19 20:31 1,000 mg ONCE ONE Administration Sodium Chloride 1,000 mls @ 1,000 mls/hr 04/26/19 19:41 04/26/19 20:34 Normal Saline - IV 04/26/19 20:40 1,000 mls/hr ASDIR STA Administration Ceftriaxone Sodium 1,000 mg/ 50 mls @ 100 mls/hr 04/26/19 19:41 04/26/19 20: 35 Dextrose IVPB 04/26/19 20:10 100 mls/hr ONCE ONE Administration Medical Decision Making - Medical Decision Making 04/27/19 14:58 Received call from [facility] saying patient could not fill antibiotic prescribed. Culture resulted, sensitivities reviewed, given bactrim. Dr Reyes notified. Discharge - Discharge Information Problems reviewed: Yes Clinical Impression/Diagnosis: Pyelonephritis Disposition: HOME - Additional Discharge Information Prescriptions: Sulfamethoxazole/Trimethoprim [Bactrim Ds -] 1 tab PO BID #14 tablet - Follow up/Referral - Patient Discharge Instructions Patient Printed Discharge Instructions: Kidney Infection Additional Instructions: Increase fluids Please return to emergency department any increased pain, inability to void, increased bleeding, back pain, fever or other concerns. Please follow up at the primary care DrNehemias symptoms persist in 2 days Medications as prescribed Motrin for pain drink plenty of fluids Take ibuprofen every 6 hours as needed for pain You may take Pyridium for the burning of urination. it can turn year her urine orange and can make you sweat orange Take cefpodoxime as prescribved Follow-up with your urologist as soon as possible. You need to repeat urine test once your antibiotic is completed. We will call you if you're antibiotic needs to be changed. - Post Discharge Activity Work/Back to School Note: Back to Work
== END 2019-04-26 22:05 | disposition home or self-care (01) ==
LOC: JER 17:26
PROC: 3E03329 Introduction of Other Anti-infective into Peripheral Vein, Percutaneous Approach (ICD-10-PCS; principal; 2019-04-26)
PROC: 3E0337Z Introduction of Electrolytic and Water Balance Substance into Peripheral Vein, Percutaneous Approach (ICD-10-PCS; 2019-04-26)
DX: N12 Tubulo-interstitial nephritis, not specified as acute or chronic (principal); Z91.010 Allergy to peanuts; Z91.013 Allergy to seafood; Z88.8 Allergy status to other drugs, medicaments and biological substances; Z91.040 Latex allergy status; Z87.442 Personal history of urinary calculi; J45.909 Unspecified asthma, uncomplicated; F41.8 Other specified anxiety disorders; F32.9 Major depressive disorder, single episode, unspecified; Z86.79 Personal history of other diseases of the circulatory system; Z87.42 Personal history of other diseases of the female genital tract
CPT/HCPCS: 36415; 76700-TC; 76856-TC; 80053; 81003; 85025; 87040; 87086; 87186; 96361; 96365; 99282-25; J7030

== ENCOUNTER 2019-05-10 01:23 | Inpatient (IN) | payer OTHER ==
[2019-05-10] MEDS ORDERED: CEFTRIAXONE 1,000 MG in DEXTROSE 5%-WATER - 50 ML IVPB ONE (03:07)
[2019-05-10 03:10] LABS: BASO % 0.3 % (0-2.0); EOS % 1.7 % (0-4.5); HEMATOCRIT 34.7 % (32.4-45.2); HEMOGLOBIN 11.5 GM/dL (10.7-15.3); LYMPH % 13.4 % (8-40); MEAN CELL VOLUME 84.7 fl (80-96); NEUT % 78.6 % (42.8-82.8); PLATELET COUNT 268 K/MM3 (134-434); RBC 4.09 M/mm3 (3.60-5.2); RDW 13.9 % (11.6-15.6); WHITE BLOOD COUNT 10.4 K/mm3 (4.0-10.0)
--- NOTE | 2019-05-10 03:11 | PDOC ---
History of Present Illness - General Chief Complaint: Hematuria Stated Complaint: BLOOD IN URINE Time Seen by Provider: 05/10/19 02:33 - History of Present Illness Initial Comments: Juju Rubio is a 53yo woman with a PMH of asthma, hypokalemia, recent admission for sepsis and pyleonephritis 2/2 infected stone now s/p L renal stent , lithotripy scheduled next month, recently re-diagnosed with UTI on 04/26/19 who presents with worsening dysuria, urinary frequency, and hematuria since completing her antibiotics last week. She states that she has had chills for several days and then had a fever to 101F at home today, so she presented back to the hospital. Ms Rubio reports that she took her most recent antibiotic as scheduled and finished the entire prescription. Past History - Past Medical History Allergies/Adverse Reactions: Allergies Allergy/AdvReac Type Severity Reaction Status Date / Time polyethylene glycol Allergy Severe Difficulty Verified 05/10/19 02:21 Breathing latex Allergy Mild Verified 05/10/19 02:21 lidocaine Allergy Verified 05/10/19 02:21 orange Allergy Verified 05/10/19 04:48 paprika Allergy Verified 05/10/19 02:21 peanut Allergy Difficulty Verified 05/10/19 02:21 Breathing procaine HCl [From Novocain] Allergy Verified 05/10/19 02:21 POLYURETHANE Allergy Intermediate Swelling Uncoded 05/10/19 02:21 shrimp Allergy Intermediate Hives Uncoded 05/10/19 02:21 Home Medications: Ambulatory Orders Diphenhydramine HCl [Benadryl Capsule -] 25 mg PO Q6H 06/06/17 Albuterol Sulfate Inhaler - [Ventolin HFA Inhaler -] 1 - 2 inh PO QID PRN Potassium Chloride [K-Dur -] 40 meq PO DAILY #28 tablet.er 03/14/19 Acetaminophen [Tylenol -] 500 mg PO PRN PRN 05/10/19 Albuterol 0.083% Nebulizer Maddie [Ventolin 0.083% Nebulizer Soln -] 1 amp NEB DAILY PRN 05/10/19 Famotidine [Pepcid] 20 mg PO DAILY PRN 05/10/19 Ibuprofen 600 mg PO PRN PRN 05/10/19 Anemia: (HYPOKALEMIA) Asthma: Yes Cardiac Disorders: Yes (SVT) COPD: No DVT: No GI Disorders: Yes (ulcer) Disorders: Yes (right ovarian cyst status post surgery, status post hysterectomy, still has) HTN: Yes (?) Kidney Stones: (Kidney problems.) Psychiatric Problems: Yes (anxiety, depression) - Surgical History Abdominal Surgery: Yes (hysterectomy and right oophorectomy) - Immunization History Td Vaccination: No TDAP Vaccination: No Immunization Up to Date: Yes - Psycho Social/Smoking Cessation Hx Smoking Status: No Smoking History: Current every day smoker Years of Tobacco Use: 0 Have you smoked in the past 12 months: Yes Number of Cigarettes Smoked Daily: 1 Cigars Per Day: 0 Information on smoking cessation initiated: Yes Hx Alcohol Use: Yes Drug/Substance Use Hx: No Substance Use Type: None Hx Substance Use Treatment: No Review of Systems - Review of Systems Comments:: General: No fevers, no chills, no weight or appetite change, no malaise HEENT: No changes in vision, no changes in hearing, no congestion, no sore throat CV: No chest pain, no palpitations, no LE edema Pulm: No SOB, no cough, no wheezing GI: No nausea or vomiting, no change in bowel habits, no melena : +Frequency, +dysuria, +hematuria, +h/o infected stone, +h/o L stent Musc: No back pain, no joint swelling, no recent injury Skin: No rash, no lesions, no erythema Endo: No excessive thirst, no heat/cold intolerance Heme: No unusual bruising or bleeding, no swollen glands Neuro: No syncope, no numbness/tingling, no focal weakness Vasc: No claudication Psych: No recent change in mood, no SI or HI *Physical Exam - Vital Signs Last Vital Signs Temp Pulse Resp BP Pulse Ox 98.3 F 91 H 18 123/69 99 05/10/19 01:23 05/10/19 01:23 05/10/19 01:23 05/10/19 01:23 05/10/19 01:23 - Physical Exam Comments: General: Comfortable, no acute distress HEENT: Atraumatic, PERRL, EOMI, MMM, voice normal Cards: RRR, no murmur appreciated Pulm: Comfortable on room air, clear to auscultation bilaterally Abd: Soft, nontender, nondistended :+ left CVA TTP Ext: Atraumatic. No LE edema. ROM intact. WWP Skin: Normal color, no rashes or lesions Neuro: A&Ox3, CN grossly intact, normal speech, motor/sensory grossly intact and symmetric Psych: Mood appropriate to situation ED Treatment Course - LABORATORY CBC & Chemistry Diagram: 05/10/19 02:56 05/10/19 02:56 Medical Decision Making - Medical Decision Making 05/10/19 03:11 Juju Rubio is a 53yo woman with a PMH of asthma, hypokalemia, recent admission for sepsis and pyleonephritis 2/2 infected stone now s/p L renal stent , lithotripy scheduled next month, recently re-diagnosed with UTI on 04/26/19 who presents with worsening dysuria, urinary frequency, and hematuria since completing her antibiotics last week and now fever to 101F at home today. - Given history and symptoms, strongly suspect UTI v new or worsening stone. Failed outpatient treatment as she recently completed a course of Bactrim - CBC, CMP, UA, UCx - No fever or other vitals abnormalities while in ED suggesting sepsis, though pt reports fever at home. Will monitor. 05/10/19 04:05 - UA grossly positive for UTI. New culture sent - Ceftriaxone ordered for UTI, per recent culture infection should be susceptible - Labs otherwise without concerning abnormalities - Given recent course of antibiotics at home, will admit for failure of outpatient treatment 05/10/19 05:26 - Admission discussed with Dr Jeffery as pt reports that she plans to start seeing Dr Mohr but has not yet done so. Plan to admit to medicine service for now. Sign out to be given to Dr Perez, waiting for call. Will admit to med/ surg on Dr Aranda's service. Discussed with Dr Melanie Osuna PGY2 Discharge - Discharge Information Problems reviewed: Yes Clinical Impression/Diagnosis: Ureteral calculus, Failure of outpatient treatment Urinary tract infection Qualifiers: Urinary tract infection type: site unspecified Hematuria presence: with hematuria Qualified Code(s): N39.0 - Urinary tract infection, site not specified Condition: Fair - Admission Yes - Follow up/Referral - Patient Discharge Instructions - Post Discharge Activity
[2019-05-10] MEDS ORDERED: CEFTRIAXONE 1 GM/50 ML BAG ONE (03:15)
--- NOTE | 2019-05-10 03:35 | PDOC ---
Attending Attestation - Resident Resident Name: Jaqueline Osuna - ED Attending Attestation I have performed the following: I have examined & evaluated the patient, The case was reviewed & discussed with the resident, I agree w/resident's findings & plan - HPI HPI: 05/10/19 03:35 Pt comes with hematuria. - Physicial Exam PE: 05/10/19 04:04 Agree with resident exam - Medical Decision Making 05/10/19 04:03 Pt has UTI/infected stone; she faied outpatient therapy and she will be admitted to the hospital. 05/10/19 04:11 Pt is sensitive to ceftriaxone; we will treat with IV abx.
[2019-05-10 03:36] LABS: ALBUMIN 3.8 g/dl (3.4-5.0); BILIRUBIN,TOTAL 0.2 mg/dL (0.2-1); BLOOD UREA NITROGEN 22.1 mg/dL (7-18); CREATININE 0.6 mg/dL (0.55-1.3); POTASSIUM 3.6 mmol/L (3.5-5.1); TOT PROT 6.6 g/dl (6.4-8.2)
[2019-05-10 04:01] LABS: EPI CELLS 1.2 /HPF (0-5/HPF); HYALINE CASTS 2 /lpf (0-8); PH,URINE 5.5 (5.0-8.0); URINE APPEARANCE TURBID; URINE BILIRUBIN NEGATIVE (NEGATIVE); URINE COLOR YELLOW; URINE GLUCOSE (UA) NEGATIVE (NEGATIVE); URINE KETONE NEGATIVE (NEGATIVE); URINE LEUK ESTERASE 3+ (NEGATIVE); URINE NITRITE NEGATIVE (NEGATIVE); URINE PROTEIN 1+ (NEGATIVE); URINE RBC 91 /hpf (0-4); URINE UROBILINOGEN 0.2 mg/dL (0.2-1.0); URINE WBC 507 /hpf (0-5)
--- NOTE | 2019-05-10 05:34 | PN ---
Teaching Attending Note Name of Resident: Darby Jeffery ATTENDING PHYSICIAN STATEMENT I saw and evaluated the patient. I reviewed the resident's note and discussed the case with the resident. I agree with the resident's findings and plan as documented. SUBJECTIVE: Juju Rubio is a 53yo woman with a PMH of Asthma, Anxiety, Kidney stone, Tobacco use, Depression, Ureteral stent and Hypokalemia, recently admitted for sepsis and pyleonephritis due to infected stone now presents with worsening dysuria, urinary frequency, and hematuria. Recently got a left renal stent and is schedule for lithotripy next month. Recently re-diagnosed with UTI on and has been treated with Rocephin and Bactrim. She states that she has had chills for several days and then had a fever to 101F at home today. She reports that she took her most recent antibiotic as scheduled and finished the entire prescription. OBJECTIVE: Alert and in pain Vital Signs Period Temp Pulse Resp BP Sys/Gifford Pulse Ox Last 24 Hr 98 F-98.3 F 88-93 17-19 113-148/69-96 97-100 HEENT: No Jaundice, eye redness or discharge, PERRLA, EOMI. Normocephalic, atraumatic. External ears are normal and hearing is grossly intact. No nasal discharge. Neck: Supple, nontender. No palpable adenopathy or thyromegaly. No JVD Chest: Good effort. Clear to auscultation and percussion. Heart: Regular. No S3, rub or murmur Abdomen: Not distended, soft, nontender and no HSM. No rebound or guarding. Normal bowel sounds. Ext: Peripheral pulses intact. No leg edema. Skin: Warm and dry. No petechiae, rash or ecchymosis. Neuro: Alert. Oriented x3. CN 2-12 grossly intact. Sensation grossly intact in all four extremities and DTR are symmetric. Psych: Appropriate mood and affect. Good insight. Current Medications Generic Name Dose Route Start Last Admin Trade Name Freq PRN Reason Stop Dose Admin Acetaminophen 650 mg 05/10/19 06:11 Tylenol - PO Q4H PRN PAIN LEVEL 1-5 Heparin Sodium (Porcine) 5,000 unit 05/10/19 14:00 Heparin - SQ TID IBETH Sodium Chloride 1,000 mls @ 100 mls/hr 05/10/19 06:15 Normal Saline - IV ASDIR IBETH Meropenem 1 gm/ Dextrose 100 mls @ 200 mls/hr 05/10/19 06:30 IVPB 05/10/19 06:59 ONCE ONE Morphine Sulfate 1 mg 05/10/19 06:11 Morphine Sulfate IVPUSH Q4H PRN PAIN LEVEL 6-10 Home Medications Medication Instructions Recorded Diphenhydramine HCl [Benadryl 25 mg PO Q6H 06/06/17 Capsule -] Albuterol Sulfate Inhaler - 1 - 2 inh PO QID PRN 02/28/19 [Ventolin HFA Inhaler -] Potassium Chloride [K-Dur -] 40 meq PO DAILY #28 tablet.er 03/14/19 Acetaminophen [Tylenol -] 500 mg PO PRN PRN 05/10/19 Albuterol 0.083% Nebulizer Maddie 1 amp NEB DAILY PRN 05/10/19 [Ventolin 0.083% Nebulizer Soln -] Famotidine [Pepcid] 20 mg PO DAILY PRN 05/10/19 Ibuprofen 600 mg PO PRN PRN 05/10/19 Abnormal Lab Results 05/10/19 05/10/19 05/10/19 02:56 02:56 03:30 WBC 10.4 H MPV 7.0 L Absolute Neuts (auto) 8.2 H BUN 22.1 H Urine Protein 1+ H Urine Blood 3+ H Ur Leukocyte Esterase 3+ H ASSESSMENT AND PLAN: 1. Pyelonephriis due to ?infected kidney stone - Sepsis work up done. Based on urine cultures that have separately grown Enterobacter aerogenes, E. Coli and Pseudomonas aeruginosa within the past 2 months, will treat with IV Meropenem pending culture report. Give IN NS and IV morphine for pain control. Consult urology for lithotripsy and reassessment ureteral stent. Will continue comprehensive care for all of patients comorbid conditions including duoneb PRN for asthma. 2. Tobacco Use Counseled on risks associated with tobacco use. We will provide patient all the necessary assistance to facilitate smoking cessation and prescribe Nicotine patch. 3. DVT prophylaxis - Lovenox 40 mg SQ q 24 hours. 4. Advance directives - Full code
[2019-05-10] MEDS ORDERED: MORPHINE SULFATE 2 MG/ML VIAL IVPUSH PRN ×2 (06:11→15:57)
[2019-05-10] MEDS ORDERED: MEROPENEM 1 GM in DEXTROSE 5%-WATER 100 ML IVPB ONE (06:30)
[2019-05-10 07:14] VITALS: BMI 33.7
[2019-05-10] MEDS ORDERED: MEROPENEM 1 GM VIAL (RESTRICTED TO ID) IVPB ONE (07:33)
[2019-05-10] MEDS ORDERED: DEXTROSE 5%-WATER 100 ML IVPB ONE ×3 (07:34→17:09)
--- NOTE | 2019-05-10 08:09 | HP ---
CHIEF COMPLAINT: persistent abdominal pain and fevers PCP: unknown HISTORY OF PRESENT ILLNESS: 53 y/o F PMH of asthma, hypokalemia, and kidney stone recent admission for sepsis secondary to pyelo from infected stone s/p L stent placement now presents with worsening dysuria with foul smell, urinary frequency and urgency, hematuria and pain in the mid back specifically on the left side. Pt was discharged recently to follow up with urology within a month for a lithotripsy.However, symptoms had recurred much sooner and pt had returned to the ED. At the time pt was advised to stay for further evaluation but patient declined as she refused to extend her stay. She was given rocephin and bactrim since cultures at the time were positive for enterobacter with hebert sensitivity except for cefazolin. Despite completing regimen, Pt said her symptoms continued to worsen to the points of having addtional symptoms of flu like disease such as nausea but no vomit, fevers with recorded temp of 101F and chills with general malaise. ER course was notable for: (1) CBC remarkable for leukocystosis, CMP unremarkable. UA positive for infection (2) ceftriaxone Recent Travel: none PAST MEDICAL HISTORY: as above PAST SURGICAL HISTORY:hysterectomy for hx of ovarian cancer in family Social History: Smoking:denies Alcohol: social Drugs: denies Allergies polyethylene glycol Allergy (Severe, Verified 05/10/19 02:21) Difficulty Breathing swelling latex Allergy (Mild, Verified 05/10/19 02:21) lidocaine Allergy (Verified 05/10/19 02:21) orange Allergy (Verified 05/10/19 04:48) paprika Allergy (Verified 05/10/19 02:21) peanut Allergy (Verified 05/10/19 02:21) Difficulty Breathing procaine HCl [From Novocain] Allergy (Verified 05/10/19 02:21) POLYURETHANE Allergy (Intermediate, Uncoded 05/10/19 02:21) Swelling shrimp Allergy (Intermediate, Uncoded 05/10/19 02:21) Hives HOME MEDICATIONS: Home Medications Medication Instructions Recorded Diphenhydramine HCl [Benadryl 25 mg PO Q6H 06/06/17 Capsule -] Albuterol Sulfate Inhaler - 1 - 2 inh PO QID PRN 02/28/19 [Ventolin HFA Inhaler -] Potassium Chloride [K-Dur -] 40 meq PO DAILY #28 tablet.er 03/14/19 Acetaminophen [Tylenol -] 500 mg PO PRN PRN 05/10/19 Albuterol 0.083% Nebulizer Maddie 1 amp NEB DAILY PRN 05/10/19 [Ventolin 0.083% Nebulizer Soln -] Famotidine [Pepcid] 20 mg PO DAILY PRN 05/10/19 Ibuprofen 600 mg PO PRN PRN 05/10/19 REVIEW OF SYSTEMS CONSTITUTIONAL: fever, chills,malaise, loss of appetite Absent: diaphoresis, generalized weakness , weight change HEENT: Absent: rhinorrhea, nasal congestion, throat pain, throat swelling, difficulty swallowing, mouth swelling, ear pain, eye pain, visual changes CARDIOVASCULAR: Absent: chest pain, syncope, palpitations, irregular heart rate, lightheadedness , peripheral edema RESPIRATORY: Absent: cough, shortness of breath, dyspnea with exertion, orthopnea, wheezing, stridor, hemoptysis GASTROINTESTINAL:abdominal pain, nausea Absent: abdominal distension, vomiting, diarrhea, constipation, melena, hematochezia GENITOURINARY: Absent: dysuria, frequency, urgency, hesitancy, hematuria, flank pain, genital pain MUSCULOSKELETAL: Absent: myalgia, arthralgia, joint swelling, back pain, neck pain SKIN: Absent: rash, itching, pallor HEMATOLOGIC/IMMUNOLOGIC: Absent: easy bleeding, easy bruising, lymphadenopathy, frequent infections ENDOCRINE: Absent: unexplained weight gain, unexplained weight loss, heat intolerance, cold intolerance NEUROLOGIC: Absent: headache, focal weakness or paresthesias, dizziness, unsteady gait, seizure, mental status changes, bladder or bowel incontinence PSYCHIATRIC: Absent: anxiety, depression, suicidal or homicidal ideation, hallucinations. PHYSICAL EXAMINATION Vital Signs - 24 hr 05/10/19 05/10/19 05/10/19 01:23 02:40 04:20 Temperature 98.3 F 98 F 98.5 F Pulse Rate 91 H 97 H Pulse Rate [ 88 Right Radial] Respiratory 18 17 20 Rate Blood Pressure 123/69 126/85 Blood Pressure 113/96 [Left Arm] O2 Sat by Pulse 99 97 Oximetry (%) 05/10/19 05:53 Temperature 98.0 F Pulse Rate Pulse Rate [ 93 H Right Radial] Respiratory 19 Rate Blood Pressure Blood Pressure 148/88 [Left Arm] O2 Sat by Pulse 100 Oximetry (%) GENERAL: Awake, alert, and fully oriented, in no acute distress. HEAD: Normal with no signs of trauma. EYES: Pupils equal, round and reactive to light, extraocular movements intact, sclera anicteric, conjunctiva clear. No lid lag. EARS, NOSE, THROAT: oropharynx clear without exudates. Moist mucous membranes. NECK: Normal range of motion, supple without lymphadenopathy, JVD, or masses. LUNGS: Breath sounds equal, clear to auscultation bilaterally. No wheezes, and no crackles. No accessory muscle use. HEART: Regular rate and rhythm, normal S1 and S2 without murmur, rub or gallop. ABDOMEN: Soft, mildly tender s/p pain meds, not distended, normoactive bowel sounds, no guarding, no rebound, no masses. No hepatomegaly or splenomegaly. MUSCULOSKELETAL: Normal range of motion at all joints. No bony deformities or tenderness. POSITIVE CVA tenderness more so on the left. UPPER EXTREMITIES: 2+ pulses, warm, well-perfused. No cyanosis. No clubbing. No peripheral edema. LOWER EXTREMITIES: 2+ pulses, warm, well-perfused. No calf tenderness. nonpitting peripheral edema. PSYCHIATRIC: Cooperative. Good eye contact. Appropriate mood and affect. SKIN: Warm, dry, normal turgor Laboratory Results - last 24 hr 05/10/19 05/10/19 05/10/19 02:56 02:56 03:30 WBC 10.4 H RBC 4.09 Hgb 11.5 Hct 34.7 MCV 84.7 MCH 28.0 MCHC 33.0 RDW 13.9 Plt Count 268 MPV 7.0 L Absolute Neuts (auto) 8.2 H Neutrophils % 78.6 Lymphocytes % 13.4 Monocytes % 6.0 Eosinophils % 1.7 Basophils % 0.3 Nucleated RBC % 0 Sodium 141 Potassium 3.6 Chloride 105 Carbon Dioxide 27 Anion Gap 9 BUN 22.1 H Creatinine 0.6 Est GFR (CKD-EPI)AfAm 118.93 Est GFR (CKD-EPI)NonAf 102.61 Random Glucose 92 Calcium 9.0 Total Bilirubin 0.2 AST 20 ALT 21 Alkaline Phosphatase 77 Total Protein 6.6 Albumin 3.8 Urine Color Yellow Urine Appearance Turbid Urine pH 5.5 Ur Specific Allen 1.016 Urine Protein 1+ H Urine Glucose (UA) Negative Urine Ketones Negative Urine Blood 3+ H Urine Nitrite Negative Urine Bilirubin Negative Urine Urobilinogen 0.2 Ur Leukocyte Esterase 3+ H Urine WBC (Auto) 507 Urine RBC (Auto) 91 Urine Casts (Auto) 2 U Epithel Cells (Auto) 1.2 Urine Bacteria (Auto) 2037.0 ASSESSMENT/PLAN: 53 y/o F PMH of asthma, hypokalemia, and kidney stone recent admission for sepsis secondary to pyelo from infected stone s/p L stent placement now presents with worsening dysuria with foul smell, urinary frequency and urgency, hematuria and pain in the mid back specifically on the left side. admitted for complicated UTI/ Pyelonephritis sepsis 2/2 Complicated UTI/Pyelonephritis urine and blood cultures sent previous culture Enterobacter aerogenes, E. Coli and Pseudomonas aeruginosa within the past 2 months will treat with IV Meropenem pending culture report. NS @100 IV morphine and tylenol for pain control. urology consulted for lithotripsy and reassessment ureteral stent. ID Dr Amaro consulted for anbiotic recommendation Asthma albuterol PRN Q4h once med rec Hypokalemia cont potassium chloride once med rec DVT SCDs in case of procedure Visit type - Emergency Visit Emergency Visit: Yes ED Registration Date: 05/10/19 Care time: The patient presented to the Emergency Department on the above date and was hospitalized for further evaluation of their emergent condition. - New Patient This patient is new to me today: Yes Date on this admission: 05/10/19 - Critical Care Critical Care patient: No ATTENDING PHYSICIAN STATEMENT I saw and evaluated the patient. I reviewed the resident's note and discussed the case with the resident. I agree with the resident's findings and plan as documented. SUBJECTIVE: OBJECTIVE: ASSESSMENT AND PLAN:
[2019-05-10] MEDS: SODIUM CHLORIDE 1,000 ML IV SCH ×2 (08:24→20:08)
[2019-05-10 08:34] LABS: ALBUMIN 3.9 g/dl (3.4-5.0); BILIRUBIN,TOTAL 0.2 mg/dL (0.2-1); BLOOD UREA NITROGEN 17.5 mg/dL (7-18); CALCIUM 8.7 mg/dL (8.5-10.1); CREATININE 0.6 mg/dL (0.55-1.3); MAGNESIUM 2.3 mg/dL (1.8-2.4); PHOSPHOROUS 3.5 mg/dL (2.5-4.9); POTASSIUM 3.8 mmol/L (3.5-5.1); TOT PROT 6.6 g/dl (6.4-8.2)
--- NOTE | 2019-05-10 09:46 | CON.GU ---
Consult Consult Specialty:: Referred by:: Chris Reason for Consultation:: UTI - History of Present Illness Chief Complaint: L flank psin History of Present Illness: 53 y/o F PMH of asthma, hypokalemia, and kidney stone recent admission for sepsis secondary to pyelo from infected stone s/p L stent placement now presents with worsening dysuria with foul smell, urinary frequency and urgency, hematuria and pain in the mid back specifically on the left side. Pt was discharged recently to follow up with urology within a month for a lithotripsy.However, symptoms had recurred much sooner and pt had returned to the ED. At the time pt was advised to stay for further evaluation but patient declined as she refused to extend her stay. She was given rocephin and bactrim since cultures at the time were positive for enterobacter with hebert sensitivity except for cefazolin. Despite completing regimen, Pt said her symptoms continued to worsen to the points of having addtional symptoms of flu like disease such as nausea but no vomit, fevers with recorded temp of 101F and chills with general malaise. cons req. ER course was notable for: (1) CBC remarkable for leukocystosis, CMP unremarkable. UA positive for infection (2) ceftriaxone - History Source History Provided By: Patient, Medical Record Limitations to Obtaining History: No Limitations - Past Medical History Cardio/Vascular: Yes: Other (svt) Pulmonary: Yes: Asthma Renal/: Yes: Other (hypokalemia) ...: No - Alcohol/Substance Use Hx Alcohol Use: Yes - Smoking History Smoking history: Current every day smoker Have you smoked in the past 12 months: Yes Aproximately how many cigarettes per day: 1 Home Medications - Allergies Allergies/Adverse Reactions: Allergies Allergy/AdvReac Type Severity Reaction Status Date / Time polyethylene glycol Allergy Severe Difficulty Verified 05/10/19 02:21 Breathing latex Allergy Mild Verified 05/10/19 02:21 lidocaine Allergy Verified 05/10/19 02:21 orange Allergy Verified 05/10/19 04:48 paprika Allergy Verified 05/10/19 02:21 peanut Allergy Difficulty Verified 05/10/19 02:21 Breathing procaine HCl [From Novocain] Allergy Verified 05/10/19 02:21 POLYURETHANE Allergy Intermediate Swelling Uncoded 05/10/19 02:21 shrimp Allergy Intermediate Hives Uncoded 05/10/19 02:21 - Home Medications Home Medications: Ambulatory Orders Diphenhydramine HCl [Benadryl Capsule -] 25 mg PO HS 06/06/17 Albuterol Sulfate Inhaler - [Ventolin HFA Inhaler -] 1 - 2 inh PO QID PRN Potassium Chloride [K-Dur -] 40 meq PO DAILY #28 tablet.er 03/14/19 Acetaminophen [Tylenol -] 500 mg PO PRN PRN 05/10/19 Albuterol 0.083% Nebulizer Maddie [Ventolin 0.083% Nebulizer Soln -] 1 amp NEB DAILY PRN 05/10/19 Famotidine [Pepcid] 20 mg PO BID 05/10/19 Ibuprofen 600 mg PO PRN PRN 05/10/19 Review of Systems - Review of Systems Genitourinary: reports: Flank Pain Physical Exam- Vital Signs: Vital Signs Temperature 98.0 F 05/10/19 05:53 Pulse Rate 93 H 05/10/19 05:53 Respiratory Rate 19 05/10/19 05:53 Blood Pressure 148/88 05/10/19 05:53 O2 Sat by Pulse Oximetry (%) 100 05/10/19 05:53 Renal/: Yes: CVA Tenderness - Left Labs: CBC, BMP 05/10/19 02:56 05/10/19 07:52 Problem List - Problems (1) Renal calculus Assessment/Plan: ESWL L 06/01 after uti resolved Code(s): N20.0 - CALCULUS OF KIDNEY (2) S/P ureteral stent placement Code(s): Z96.0 - PRESENCE OF UROGENITAL IMPLANTS (3) Urinary tract infection Assessment/Plan: ur cx, iv abxs Code(s): N39.0 - URINARY TRACT INFECTION, SITE NOT SPECIFIED Qualifiers: Urinary tract infection type: site unspecified Hematuria presence: with hematuria Qualified Code(s): N39.0 - Urinary tract infection, site not specified; R31.9 - Hematuria, unspecified
[2019-05-10 10:57] LABS: BASO % 0.6 % (0-2.0); EOS % 1.4 % (0-4.5); HEMATOCRIT 34.6 % (32.4-45.2); HEMOGLOBIN 11.4 GM/dL (10.7-15.3); LYMPH % 12.9 % (8-40); MCH 28.2 pg (25.7-33.7); MEAN CELL VOLUME 85.6 fl (80-96); MEAN PLT VOLUME 7.2 fl (7.5-11.1); NEUT % 77.1 % (42.8-82.8); PLATELET COUNT 239 K/MM3 (134-434); RBC 4.04 M/mm3 (3.60-5.2); RDW 13.7 % (11.6-15.6); WHITE BLOOD COUNT 8.5 K/mm3 (4.0-10.0)
--- NOTE | 2019-05-10 11:06 | PN ---
Progress Note (short form) - Note Progress Note: ID consult dictated imp/reccd recurrent UTI with stent- ?stone suggest spiral ct to r/o stone urology consult zosyn f/u cultures continue IVF prior history of ecoli sepsis- bacteremia with obstructive uropathy requiring stent and pressors d/leonora on keflex 02/28 to 03/10 on 03/13 she came to ER with dizziness, had positive urine culture for Pseudomonas she ws hospitalized at [place] 03/18 to 03/27 and sent to [place] on zosyn (completed 14 days)- d/[place] from [place] on 04/01 came to ED 04/23 with left flank pain, left AMA, was prescribed vantin which she didnot take cme back 04/26 with flank pain- switched to bactrim as her insurance didnot cover the vantin- which she states she took now with severe back pain and fevers- 101 last night came to ED no imaging done +pyuria given a dose of ceftriaxone most recent cultures from April with enterobacter sensitive to zosyn awaiting urology input Problem List - Problems (1) Urinary tract infection Code(s): N39.0 - URINARY TRACT INFECTION, SITE NOT SPECIFIED Qualifiers: Urinary tract infection type: site unspecified Hematuria presence: with hematuria Qualified Code(s): N39.0 - Urinary tract infection, site not specified; R31.9 - Hematuria, unspecified (2) Nephrolithiasis Code(s): N20.0 - CALCULUS OF KIDNEY (3) S/P ureteral stent placement Code(s): Z96.0 - PRESENCE OF UROGENITAL IMPLANTS
[2019-05-10] MEDS ORDERED: PIPERACILLIN/TAZOBACTAM 4.5 GM VIAL IVPB ONE ×2 (11:26→17:09)
[2019-05-10] MEDS: PIPERACILLIN/TAZOB 4.5 GM 4.5 GM in DEXTROSE 5%-WATER 100 ML IVPB SCH ×2 (11:30→17:15)
[2019-05-10] MEDS: ACETAMINOPHEN 325 MG TABLET (FP) PO PRN ×2 (11:49→16:52)
[2019-05-10] MEDS ORDERED: CEFTRIAXONE 1 GM in DEXTROSE 5%-WATER - 50 ML IVPB SCH (12:00)
[2019-05-10] MEDS ORDERED: KETOROLAC TROMETHAMINE 30 MG/1 ML VIAL IM ONE (12:30)
[2019-05-10] MEDS ORDERED: HEPARIN NA (PORCINE) 5,000 UNITS/ML 1ML VIAL SQ SCH (14:00)
[2019-05-10] MEDS ORDERED: ACETAMINOPHEN 500 MG TABLET (FP) PO PRN (14:24)
[2019-05-10] MEDS ORDERED: IBUPROFEN 600 MG TABLET (FP) PO PRN (14:24)
[2019-05-10] MEDS ORDERED: FAMOTIDINE 10 MG TABLET PO SCH (14:25)
[2019-05-10] MEDS: FAMOTIDINE 20 MG TABLET PO SCH ×2 (14:47→21:09)
--- NOTE | 2019-05-10 14:51 | PN ---
Teaching Attending Note Name of Resident: Jose Casey ATTENDING PHYSICIAN STATEMENT I saw and evaluated the patient. I reviewed the resident's note and discussed the case with the resident. I agree with the resident's findings and plan as documented. SUBJECTIVE: Patient is c/o low back pain. No fever or chills. OBJECTIVE: Vital Signs Temperature 98.3 F 05/10/19 13:15 Pulse Rate 98 H 05/10/19 09:15 Respiratory Rate 18 05/10/19 09:15 Blood Pressure 140/81 05/10/19 09:15 O2 Sat by Pulse Oximetry (%) 100 05/10/19 05:53 GENERAL: The patient is awake, alert, and fully oriented, in no acute distress. HEAD: Normal with no signs of trauma. EYES: PERRL, extraocular movements intact, sclera anicteric, conjunctiva clear. ENT: Ears normal, oropharynx clear without exudates, moist mucous membranes. NECK: Trachea midline, full range of motion, supple. LUNGS: Breath sounds equal, clear to auscultation bilaterally, no wheezes, no crackles, no accessory muscle use. HEART: Regular rate and rhythm, S1, S2 without murmur, rub or gallop. ABDOMEN: Soft, mild tenderenss, ND, bl CVA tenderness , ND, normoactive bowel sounds, no guarding, no rebound, no hepatosplenomegaly, no masses. EXTREMITIES: 2+ pulses, warm, well-perfused, no edema. NEUROLOGICAL: Cranial nerves II through XII grossly intact. Normal speech, gait not observed. PSYCH: Normal mood, normal affect. SKIN: Warm, dry, normal turgor, no rashes or lesions noted CBCD WBC 8.5 K/mm3 (4.0-10.0) 05/10/19 07:50 RBC 4.04 M/mm3 (3.60-5.2) 05/10/19 07:50 Hgb 11.4 GM/dL (10.7-15.3) 05/10/19 07:50 Hct 34.6 % (32.4-45.2) 05/10/19 07:50 MCV 85.6 fl (80-96) 05/10/19 07:50 MCHC 33.0 g/dl (32.0-36.0) 05/10/19 07:50 RDW 13.7 % (11.6-15.6) 05/10/19 07:50 Plt Count 239 K/MM3 (134-434) 05/10/19 07:50 MPV 7.2 fl (7.5-11.1) L 05/10/19 07:50 CMP Sodium 141 mmol/L (136-145) 05/10/19 07:52 Potassium 3.8 mmol/L (3.5-5.1) 05/10/19 07:52 Chloride 106 mmol/L (98-107) 05/10/19 07:52 Carbon Dioxide 26 mmol/L (21-32) 05/10/19 07:52 Anion Gap 8 MMOL/L (8-16) 05/10/19 07:52 BUN 17.5 mg/dL (7-18) 05/10/19 07:52 Creatinine 0.6 mg/dL (0.55-1.3) 05/10/19 07:52 Random Glucose 96 mg/dL (74-106) 05/10/19 07:52 Calcium 8.7 mg/dL (8.5-10.1) 05/10/19 07:52 Total Bilirubin 0.2 mg/dL (0.2-1) 05/10/19 07:52 AST 14 U/L (15-37) L 05/10/19 07:52 ALT 20 U/L (13-61) 05/10/19 07:52 Alkaline Phosphatase 75 U/L (45-117) 05/10/19 07:52 Total Protein 6.6 g/dl (6.4-8.2) 05/10/19 07:52 Albumin 3.9 g/dl (3.4-5.0) 05/10/19 07:52 Current Medications Generic Name Dose Route Start Last Admin Trade Name Freq PRN Reason Stop Dose Admin Acetaminophen 650 mg 05/10/19 06:11 05/10/19 11:49 Tylenol - PO 650 mg Q4H PRN Administration PAIN LEVEL 1-5 Famotidine 20 mg 05/10/19 14:26 05/10/19 14:47 Pepcid - PO 20 mg BID IBETH Administration Sodium Chloride 1,000 mls @ 100 mls/hr 05/10/19 06:15 05/10/19 08:24 Normal Saline - IV 100 mls/hr ASDIR IBETH Administration Piperacillin Sod/Tazobactam 100 mls @ 200 mls/hr 05/10/19 11:15 05/10/19 11: 30 Sod 4.5 gm/ Dextrose IVPB 200 mls/hr Q8H-IV IBETH Administration Protocol Lactobacillus Acidophilus 1 tab 05/10/19 22:00 Bacid - PO HS IBETH Morphine Sulfate 1 mg 05/10/19 06:11 Morphine Sulfate IVPUSH Q4H PRN PAIN LEVEL 6-10 Home Medications Medication Instructions Recorded Diphenhydramine HCl [Benadryl 25 mg PO Q6H 06/06/17 Capsule -] Albuterol Sulfate Inhaler - 1 - 2 inh PO QID PRN 02/28/19 [Ventolin HFA Inhaler -] Potassium Chloride [K-Dur -] 40 meq PO DAILY #28 tablet.er 03/14/19 Acetaminophen [Tylenol -] 500 mg PO PRN PRN 05/10/19 Albuterol 0.083% Nebulizer Maddie 1 amp NEB DAILY PRN 05/10/19 [Ventolin 0.083% Nebulizer Soln -] Famotidine [Pepcid] 20 mg PO BID 05/10/19 Ibuprofen 600 mg PO PRN PRN 05/10/19 urine Test Results Urine Color Yellow 05/10/19 03:30 Urine Appearance Turbid 05/10/19 03:30 Urine pH 5.5 (5.0-8.0) 05/10/19 03:30 Ur Specific [place] 1.016 (1.010-1.035) 05/10/19 03:30 Urine Protein 1+ (NEGATIVE) H 05/10/19 03:30 Urine Glucose (UA) Negative (NEGATIVE) 05/10/19 03:30 Urine Ketones Negative (NEGATIVE) 05/10/19 03:30 Urine Blood 3+ (NEGATIVE) H 05/10/19 03:30 Urine Nitrite Negative (NEGATIVE) 05/10/19 03:30 Urine Bilirubin Negative (NEGATIVE) 05/10/19 03:30 Ur Leukocyte Esterase 3+ (NEGATIVE) H 05/10/19 03:30 ASSESSMENT AND PLAN: Patient is a 53yo F with PMHx of asthma, hypokalemia, and recent kidney stone and s/p nephrostomy tube due to having infected kidney stones admitted for UTI / Pyelonephritis. # Complicated UTI/Pyelonephritis with hx of kidney stone and Pylonephritis: [place] cx, Us of the kidneys , will do CT of abdomen pelvis with IV and oral contrast. patient is requesting benadryl prior to CT scan. US of renal: Normal appearing kidney, mild left renal hydronephrosis with a stent seen questionable couple of tiny nonobstructing stones. 1.4cm right hepatic lobe cyst. #Hx of Asthma: albuterol PRN Q4h DVT px: SCDs
[2019-05-10] MEDS ORDERED: diphenhydrAMINE HCL 25 MG CAPSULE (FP) PO ONE (15:14)
--- NOTE | 2019-05-10 15:46 | EKG ---
Test Reason : Blood Pressure : / mmHG Vent. Rate : 078 BPM Atrial Rate : 078 BPM P-R Int : 150 ms QRS Dur : 086 ms QT Int : 380 ms P-R-T Axes : 062 040 027 degrees QTc Int : 433 ms NORMAL SINUS RHYTHM NORMAL ECG WHEN COMPARED WITH ECG OF 13-MAR-2019 22:25, NO SIGNIFICANT CHANGE WAS FOUND Confirmed by ANNA LEIGH MD ([id number]) on 05/10/2019 3:46:08 PM Referred By: JULIENNE IBRAHIM Confirmed By:ANNA LEIGH MD
[2019-05-10] MEDS ORDERED: ALBUTEROL SO4 0.083% IH SOL 2.5 MG/3 ML VIAL.NEB. NEB PRN (16:14)
--- NOTE | 2019-05-10 16:17 | PN ---
Physical Exam: SUBJECTIVE: Patient seen and examined 53 y/o F, pmh of asthma, hypokalemia, and kidney stone recent admission for sepsis secondary to pyelonephritis from infected stone s/p L stent placement now presents w/ dysuria, foul smelling urine, increased urinary frequency, urgency, hematuria and back pain- left greater than right. Currently, patient is still in pain, c/o of worsening of symptoms and discomfort. Patient is afebrile. Denies overnight events. Admits to chills, lower abdominal pain, increased urinary frequency, urgency and dysuria. Denies f/n/v/d/sob, chest pain. OBJECTIVE: Vital Signs Last Vital Signs Temp Pulse Resp BP Pulse Ox 98.4 F 92 H 18 145/88 100 05/10/19 14:00 05/10/19 14:00 05/10/19 14:00 05/10/19 14:00 05/10/19 05:53 GENERAL: The patient is awake, alert, and fully oriented, Very anxious. EYES: PERRL, extraocular movements intact, ENT: moist mucous membranes. LUNGS: Breath sounds equal, clear to auscultation bilaterally, no wheezes, no crackles, HEART: Regular rate and rhythm, S1, S2 without murmur, rub or gallop. ABDOMEN: Lower abdominal tenderness on palpation. Soft, nondistended, normoactive bowel sounds, no guarding, EXTREMITIES: Mild nonpitting edema b/l. 2+ pulses, warm, SKIN: Warm, dry Laboratory Results - last 24 hr CBC,CMP WBC 8.5 K/mm3 (4.0-10.0) 05/10/19 07:50 RBC 4.04 M/mm3 (3.60-5.2) 05/10/19 07:50 Hgb 11.4 GM/dL (10.7-15.3) 05/10/19 07:50 Hct 34.6 % (32.4-45.2) 05/10/19 07:50 MCV 85.6 fl (80-96) 05/10/19 07:50 MCH 28.2 pg (25.7-33.7) 05/10/19 07:50 MCHC 33.0 g/dl (32.0-36.0) 05/10/19 07:50 RDW 13.7 % (11.6-15.6) 05/10/19 07:50 Plt Count 239 K/MM3 (134-434) 05/10/19 07:50 MPV 7.2 fl (7.5-11.1) L 05/10/19 07:50 Absolute Neuts (auto) 6.6 K/mm3 (1.5-8.0) 05/10/19 07:50 Neutrophils % 77.1 % (42.8-82.8) 05/10/19 07:50 Lymphocytes % 12.9 % (8-40) 05/10/19 07:50 Monocytes % 8.0 % (3.8-10.2) 05/10/19 07:50 Eosinophils % 1.4 % (0-4.5) 05/10/19 07:50 Basophils % 0.6 % (0-2.0) 05/10/19 07:50 Nucleated RBC % 0 % (0-0) 05/10/19 07:50 Sodium 141 mmol/L (136-145) 05/10/19 07:52 Potassium 3.8 mmol/L (3.5-5.1) 05/10/19 07:52 Chloride 106 mmol/L (98-107) 05/10/19 07:52 Carbon Dioxide 26 mmol/L (21-32) 05/10/19 07:52 Anion Gap 8 MMOL/L (8-16) 05/10/19 07:52 BUN 17.5 mg/dL (7-18) 05/10/19 07:52 Creatinine 0.6 mg/dL (0.55-1.3) 05/10/19 07:52 Est GFR (CKD-EPI)AfAm 118.93 05/10/19 07:52 Est GFR (CKD-EPI)NonAf 102.61 05/10/19 07:52 Random Glucose 96 mg/dL (74-106) 05/10/19 07:52 Calcium 8.7 mg/dL (8.5-10.1) 05/10/19 07:52 Phosphorus 3.5 mg/dL (2.5-4.9) 05/10/19 07:52 Magnesium 2.3 mg/dL (1.8-2.4) 05/10/19 07:52 Total Bilirubin 0.2 mg/dL (0.2-1) 05/10/19 07:52 AST 14 U/L (15-37) L 05/10/19 07:52 ALT 20 U/L (13-61) 05/10/19 07:52 Alkaline Phosphatase 75 U/L (45-117) 05/10/19 07:52 Total Protein 6.6 g/dl (6.4-8.2) 05/10/19 07:52 Albumin 3.9 g/dl (3.4-5.0) 05/10/19 07:52 TSH 1.96 uIU/ml (0.358-3.74) 05/10/19 07:52 Active Medications Current Medications Acetaminophen (Tylenol -) 650 mg PO Q4H PRN PRN Reason: PAIN LEVEL 1-5 Last Admin: 05/10/19 11:49 Dose: 650 mg Famotidine (Pepcid -) 20 mg PO BID IBETH Last Admin: 05/10/19 14:47 Dose: 20 mg Sodium Chloride (Normal Saline -) 1,000 mls @ 100 mls/hr IV ASDIR IBETH Last Admin: 05/10/19 08:24 Dose: 100 mls/hr Piperacillin Sod/Tazobactam (Sod 4.5 gm/ Dextrose) 100 mls @ 200 mls/hr IVPB Q8H-IV IBETH; Protocol Last Admin: 05/10/19 11:30 Dose: 200 mls/hr Lactobacillus Acidophilus (Bacid -) 1 tab PO HS IBETH Morphine Sulfate (Morphine Sulfate) 0.5 mg IVPUSH Q4H PRN PRN Reason: PAIN LEVEL 6-10 Home Medications Medication Instructions Recorded Diphenhydramine HCl [Benadryl 25 mg PO HS 06/06/17 Capsule -] Albuterol Sulfate Inhaler - 1 - 2 inh PO QID PRN 02/28/19 [Ventolin HFA Inhaler -] Potassium Chloride [K-Dur -] 40 meq PO DAILY #28 tablet.er 03/14/19 Acetaminophen [Tylenol -] 500 mg PO PRN PRN 05/10/19 Albuterol 0.083% Nebulizer Maddie 1 amp NEB DAILY PRN 05/10/19 [Ventolin 0.083% Nebulizer Soln -] Famotidine [Pepcid] 20 mg PO BID 05/10/19 Ibuprofen 600 mg PO PRN PRN 05/10/19 ASSESSMENT/PLAN: 53 y/o F, pmh of asthma, hypokalemia, and kidney stone recent admission for sepsis secondary to pyelonephritis from infected stone s/p L stent placement now presents w/ dysuria, foul smelling urine, increased urinary frequency, urgency, hematuria likely 2/2 to complicated UTI Sepsis 2/2 Complicated UTI r/o pyelo US-negative CT a/p ordered-pending urine and blood cultures sent-pending previous culture Enterobacter aerogenes, E. Coli and Pseudomonas aeruginosa within the past 2 months Zosyn 4.5gm Q8 started per ID IV morphine and tylenol for pain control. Toradol IM 50mg given urology consulted for lithotripsy and reassessment ureteral stent. Lactobacillus given TSH ordered Asthma albuterol 1 amp neb daily prn Hypokalemia cont potassium chloride DVT SCDs in case of procedure FEN NS 1000 @100 Regular diet Dispo: f/u CT a/p, control pain, cont zosyn Visit type - Emergency Visit Emergency Visit: Yes ED Registration Date: 05/10/19 Care time: The patient presented to the Emergency Department on the above date and was hospitalized for further evaluation of their emergent condition. - New Patient This patient is new to me today: Yes Date on this admission: 05/11/19 - Critical Care Critical Care patient: No - Discharge Referral Referred to [facility] Med P.C.: No ATTENDING PHYSICIAN STATEMENT I saw and evaluated the patient. I reviewed the resident's note and discussed the case with the resident. I agree with the resident's findings and plan as documented. SUBJECTIVE: OBJECTIVE: ASSESSMENT AND PLAN:
--- NOTE | 2019-05-10 19:12 | CONS ---
INFECTIOUS DISEASE CONSULTATION DATE OF CONSULTATION: 05/10/2019 REQUESTING PHYSICIAN: The hospitalist service. This is a 53-year-old woman who I know from her prior admission in February of this year. She was in the hospital from the to the . At which time, she had sepsis secondary to UTI with hypotension requiring pressors and stent placement. She was discharged. Ultimately, she had a sensitive E. coli and was ultimately discharged on Keflex. She then came to the emergency room on March 13 with dizziness. She had a urine culture positive for pseudomonas. She was then hospitalized at [facility] from March 18 to March 27 and sent to the [facility] on Zosyn. She completed 14 days and was discharged on the . She came to our ED on the with left flank pain. She left AMA, was prescribed Vantin which she did not take. She came back on the with flank pain, was switched to Bactrim as her insurance did not cover the Vantin, which she states she took. The cultures in April were all positive for enterobacter both April 23 and April 26, that were sensitive to both Bactrim and to piperacillin/tazobactam. She now returns saying that she completed the course of Bactrim with again recurrent left flank pain and a fever of 101 last night. At the time I saw her, she had not been seen by the urologist. She reported the flank pain and overall feelings of having like the flu. She had no cough. She had no nausea or vomiting. She has not had any imaging done, but on UA, does have pyuria. She was given a dose of ceftriaxone. MEDICATIONS AT HOME: Include Benadryl, Ventolin inhaler, ibuprofen, Pepcid, and potassium. PAST MEDICAL HISTORY: Notable for the recent episode of E. coli sepsis with stent placement. She has apparently seen the urologist as an outpatient and has stent removal scheduled in May. She has a history as well of asthma, hypokalemia. She has had a hysterectomy in the past. SOCIAL HISTORY: She denies alcohol or smoking or substance use. She works as a home health aide as well. ALLERGIES: She is allergic to POLYETHYLENE GLYCOL, LATEX, LIDOCAINE. FAMILY HISTORY: Noncontributory. REVIEW OF SYSTEMS: As per HPI. She notes she has flank pain. PHYSICAL EXAMINATION: General: She is awake and alert. Vital Signs: She had no fever when I saw her, 98.3. Pulse of 98, blood pressure of 140/81, respiratory rate of 18. HEENT: She is normocephalic. Her eyes are anicteric. Neck: Supple. Lungs: Clear to auscultation. Heart: Regular rate and rhythm. Abdomen: Soft, nontender. She does have left flank pain on exam. Extremities: Without edema. LABORATORY DATA: Her white count on admission was 10.4. Repeat was 8.5. Hemoglobin 11.4. Platelets are 239. INR is not done. Her BUN is 17 and creatinine 0.6, and urinalysis has 3+ leukocyte esterase with 507 white cells. Blood and urine cultures are pending. I would suggest at this time that we treat her with piperacillin/tazobactam for recurrent UTI with stent, and I would suggest a spiral CT to rule out stone. She has not had any imaging done. Urology consult is pending. Would treat her with piperacillin/tazobactam. Would follow up cultures and continue IV fluids. Further recommendations to follow. Williams [id number]
[2019-05-10] MEDS: diphenhydrAMINE HCL 25 MG CAPSULE (FP) PO SCH (21:09)
[2019-05-10] MEDS: LACTOBACILLUS ACIDOPHILUS 1 TABLET PO SCH (21:09)
[2019-05-10] MEDS ORDERED: FAMOTIDINE 20 MG TABLET PO SCH (22:00)
[2019-05-11] MEDS ORDERED: DEXTROSE 5%-WATER 100 ML IVPB ONE ×3 (00:21→17:38)
[2019-05-11] MEDS ORDERED: PIPERACILLIN/TAZOBACTAM 4.5 GM VIAL IVPB ONE ×3 (00:21→17:38)
[2019-05-11] MEDS: PIPERACILLIN/TAZOB 4.5 GM 4.5 GM in DEXTROSE 5%-WATER 100 ML IVPB SCH ×3 (01:43→17:44)
[2019-05-11] MEDS: MORPHINE SULFATE 2 MG/ML VIAL IVPUSH PRN ×2 (01:47→06:02)
[2019-05-11] MEDS: ACETAMINOPHEN 325 MG TABLET (FP) PO PRN ×4 (04:27→21:57)
[2019-05-11] MEDS: SODIUM CHLORIDE 1,000 ML IV SCH ×2 (06:43→17:44)
[2019-05-11 08:21] LABS: BASO % 0.5 % (0-2.0); EOS % 1.1 % (0-4.5); HEMATOCRIT 29.3 % (32.4-45.2); HEMOGLOBIN 9.9 GM/dL (10.7-15.3); LYMPH % 14.7 % (8-40); MCH 28.5 pg (25.7-33.7); MCHC 33.7 g/dl (32.0-36.0); MEAN CELL VOLUME 84.7 fl (80-96); MEAN PLT VOLUME 6.9 fl (7.5-11.1); MONO % 9.4 % (3.8-10.2); NEUT % 74.3 % (42.8-82.8); PLATELET COUNT 200 K/MM3 (134-434); RBC 3.46 M/mm3 (3.60-5.2); RDW 13.9 % (11.6-15.6); WHITE BLOOD COUNT 7.3 K/mm3 (4.0-10.0)
[2019-05-11 08:40] LABS: INR 1.02 (0.83-1.09)
[2019-05-11 08:41] LABS: ALBUMIN 2.9 g/dl (3.4-5.0); BILIRUBIN,TOTAL 0.2 mg/dL (0.2-1); BLOOD UREA NITROGEN 10.6 mg/dL (7-18); CALCIUM 8.2 mg/dL (8.5-10.1); CREATININE 0.6 mg/dL (0.55-1.3); POTASSIUM 3.5 mmol/L (3.5-5.1); TOT PROT 5.4 g/dl (6.4-8.2)
[2019-05-11 08:42] LABS: ACTIVATED PTT 27.2 SECONDS (25.2-36.5)
[2019-05-11] MEDS ORDERED: FAMOTIDINE 10 MG TABLET PO SCH (10:00)
[2019-05-11] MEDS: POTASSIUM CHLORIDE TABS 20 MEQ TABLET.ER (FP) PO SCH (10:40)
[2019-05-11] MEDS: FAMOTIDINE 20 MG TABLET PO SCH ×2 (10:40→21:50)
--- NOTE | 2019-05-11 14:13 | PN ---
Progress Note (short form) - Note Progress Note: feels improved no fevers pain less able to eat Vital Signs Period Temp Pulse Resp BP Sys/Gifford Pulse Ox Last 24 Hr 98.0 F-98.7 F 82-97 18-20 96-135/53-78 99 cor-rrr llungs clear abd soft,nt ext no edema CBC, BMP 05/11/19 07:45 05/11/19 07:45 Microbiology 05/10/19 09:30 Blood - Peripheral Venous Blood Culture - Preliminary NO GROWTH OBTAINED AFTER 24 HOURS, INCUBATION TO CONTINUE FOR 4 DAYS. 05/10/19 09:30 Blood - Peripheral Venous Blood Culture - Preliminary NO GROWTH OBTAINED AFTER 24 HOURS, INCUBATION TO CONTINUE FOR 4 DAYS. 05/10/19 03:30 Urine - Urine Clean Catch Urine Culture - Preliminary Lactose Fermenting Neg Bacilli ct scan noted- no renal abscess, +stent, +stone imp/reccd recurrent UTI with stent/stone urology consult noted continue zosyn f/u cultures Problem List - Problems (1) Urinary tract infection Code(s): N39.0 - URINARY TRACT INFECTION, SITE NOT SPECIFIED Qualifiers: Qualified Code(s): N39.0 - Urinary tract infection, site not specified; R31.9 - Hematuria, unspecified (2) Nephrolithiasis Code(s): N20.0 - CALCULUS OF KIDNEY (3) S/P ureteral stent placement Code(s): Z96.0 - PRESENCE OF UROGENITAL IMPLANTS
--- NOTE | 2019-05-11 14:20 | PN ---
Physical Exam: SUBJECTIVE: Patient seen and examined 53 y/o F, pmh of asthma, hypokalemia, and kidney stone recent admission for sepsis secondary to pyelonephritis from infected stone s/p L stent placement now presents w/ dysuria, foul smelling urine, increased urinary frequency, urgency, hematuria and back pain- left greater than right. Currently, patient is still in pain, c/o of worsening of symptoms and discomfort. Patient is afebrile. Denies overnight events. Admits to chills, suprapubic and back pain, increased urinary frequency, urgency and dysuria. Reports no improvement from the previous day. Denies f/n/v/d/sob, chest pain, numbness or tingling. OBJECTIVE: Vital Signs Last Vital Signs Temp Pulse Resp BP Pulse Ox 98.7 F 92 H 20 117/53 L 99 05/11/19 10:00 05/11/19 10:00 05/11/19 10:00 05/11/19 10:05/11/19 09:00 GENERAL: The patient is awake, alert, and fully oriented, Very anxious. EYES: PERRL, extraocular movements intact, ENT: moist mucous membranes. LUNGS: Breath sounds equal, clear to auscultation bilaterally, no wheezes, no crackles, HEART: Regular rate and rhythm, S1, S2 without murmur, rub or gallop. ABDOMEN: Lower abdominal tenderness on palpation. Soft, nondistended, normoactive bowel sounds, no guarding, EXTREMITIES: Mild nonpitting edema b/l. 2+ pulses, warm, SKIN: Warm, dry Laboratory Results - last 24 hr 05/11/19 05/11/19 05/11/19 07:45 07:45 07:45 WBC 7.3 RBC 3.46 L Hgb 9.9 L Hct 29.3 L D MCV 84.7 MCH 28.5 MCHC 33.7 RDW 13.9 Plt Count 200 MPV 6.9 L Absolute Neuts (auto) 5.4 Neutrophils % 74.3 Lymphocytes % 14.7 Monocytes % 9.4 Eosinophils % 1.1 Basophils % 0.5 Nucleated RBC % 0 PT with INR 12.00 INR 1.02 PTT (Actin FS) 27.2 Sodium 141 Potassium 3.5 Chloride 110 H Carbon Dioxide 25 Anion Gap 7 L BUN 10.6 Creatinine 0.6 Est GFR (CKD-EPI)AfAm 118.93 Est GFR (CKD-EPI)NonAf 102.61 Random Glucose 114 H Calcium 8.2 L Total Bilirubin 0.2 AST 11 L ALT 16 Alkaline Phosphatase 64 Total Protein 5.4 L Albumin 2.9 L Influenza A (Rapid) Influenza B (Rapid) RSV Rapid Active Medications Current Medications Acetaminophen (Tylenol -) 650 mg PO Q4H PRN PRN Reason: PAIN LEVEL 1-5 Last Admin: 05/11/19 10:38 Dose: 650 mg Albuterol Sulfate (Ventolin 0.083% Nebulizer Soln -) 1 amp NEB Q6H PRN PRN Reason: ASTHMA Diphenhydramine HCl (Benadryl -) 25 mg PO HS [facility] Last Admin: 05/10/19 21:09 Dose: 25 mg Famotidine (Pepcid -) 20 mg PO BID [facility] Last Admin: 05/11/19 10:40 Dose: 20 mg Sodium Chloride (Normal Saline -) 1,000 mls @ 100 mls/hr IV ASDIR IBETH Last Admin: 05/11/19 06:43 Dose: 100 mls/hr Piperacillin Sod/Tazobactam (Sod 4.5 gm/ Dextrose) 100 mls @ 200 mls/hr IVPB Q8H-IV IBETH; Protocol Last Admin: 05/11/19 10:39 Dose: 200 mls/hr Lactobacillus Acidophilus (Bacid -) 1 tab PO HS [facility] Last Admin: 05/10/19 21:09 Dose: 1 tab Morphine Sulfate (Morphine Sulfate) 1 mg IVPUSH Q4H PRN PRN Reason: PAIN LEVEL 6-10 Last Admin: 05/11/19 06:02 Dose: 1 mg Potassium Chloride (K-Dur -) 40 meq PO DAILY [facility] Last Admin: 05/11/19 10:40 Dose: 40 meq Home Medications Medication Instructions Recorded Diphenhydramine HCl [Benadryl 25 mg PO HS 06/06/17 Capsule -] Albuterol Sulfate Inhaler - 1 - 2 inh PO QID PRN 02/28/19 [Ventolin HFA Inhaler -] Potassium Chloride [K-Dur -] 40 meq PO DAILY #28 tablet.er 03/14/19 Acetaminophen [Tylenol -] 500 mg PO PRN PRN 05/10/19 Albuterol 0.083% Nebulizer Maddie 1 amp NEB DAILY PRN 05/10/19 [Ventolin 0.083% Nebulizer Soln -] Famotidine [Pepcid] 20 mg PO BID 05/10/19 Ibuprofen 600 mg PO PRN PRN 05/10/19 ASSESSMENT/PLAN: 53 y/o F, pmh of asthma, hypokalemia, and kidney stone recent admission for sepsis secondary to pyelonephritis from infected stone s/p L stent placement now presents w/ dysuria, foul smelling urine, increased urinary frequency, urgency, hematuria likely 2/2 to complicated UTI #Sepsis 2/2 Complicated UTI r/o pyelo US-negative CT a/p ordered-negative. .5x.3 stone on the lower pole of the left kidney urine cx- lactose fermenting negative bacilli blood cultures- no growth RSV-negative Flu swab-negative previous culture Enterobacter aerogenes, E. Coli and Pseudomonas aeruginosa within the past 2 months Zosyn 4.5gm Q8 started per ID- D2 IV morphine and tylenol for pain control. urology consulted for lithotripsy- stated they would do it outpt Lactobacillus given #Asthma albuterol 1 amp neb daily prn #Hypokalemia cont potassium chloride #DVT SCDs in case of procedure #FEN NS 1000 @100 Regular diet Dispo: control pain, cont zosyn, monitor overnight for fevers or worsening of condition Visit type - Emergency Visit Emergency Visit: Yes ED Registration Date: 05/10/19 Care time: The patient presented to the Emergency Department on the above date and was hospitalized for further evaluation of their emergent condition. - New Patient This patient is new to me today: Yes Date on this admission: 05/12/19 - Critical Care Critical Care patient: No - Discharge Referral Referred to [facility] Med P.C.: No ATTENDING PHYSICIAN STATEMENT I saw and evaluated the patient. I reviewed the resident's note and discussed the case with the resident. I agree with the resident's findings and plan as documented. SUBJECTIVE: OBJECTIVE: ASSESSMENT AND PLAN:
--- NOTE | 2019-05-11 15:08 | PN ---
Teaching Attending Note Name of Resident: Jose Casey ATTENDING PHYSICIAN STATEMENT I saw and evaluated the patient. I reviewed the resident's note and discussed the case with the resident. I agree with the resident's findings and plan as documented. SUBJECTIVE: Patient is c/o low back pain. No fever or chills. Feels better OBJECTIVE: Vital Signs Temperature 98.5 F 05/11/19 14:00 Pulse Rate 90 05/11/19 14:00 Respiratory Rate 18 05/11/19 14:00 Blood Pressure 122/73 05/11/19 14:00 O2 Sat by Pulse Oximetry (%) 99 05/11/19 09:00 GENERAL: The patient is awake, alert, and fully oriented, in no acute distress. HEAD: Normal with no signs of trauma. EYES: PERRL, EOMI , sclera anicteric, conjunctiva clear. ENT: Ears normal, oropharynx clear without exudates, moist mucous membranes. NECK: Trachea midline, full range of motion, supple. LUNGS: Breath sounds equal, clear to auscultation bilaterally, no wheezes, no crackles, no accessory muscle use. HEART: Regular rate and rhythm, S1, S2 without murmur, rub or gallop. ABDOMEN: Soft, mild tenderenss, ND, bl CVA tenderness , ND, normoactive bowel sounds, no guarding, no rebound, no hepatosplenomegaly, no masses. EXTREMITIES: 2+ pulses, warm, well-perfused, no edema. NEUROLOGICAL: Cranial nerves II through XII grossly intact. Normal speech, gait not observed. PSYCH: Normal mood, normal affect. SKIN: Warm, dry, normal turgor, no rashes or lesions noted CBCD WBC 7.3 K/mm3 (4.0-10.0) 05/11/19 07:45 RBC 3.46 M/mm3 (3.60-5.2) L 05/11/19 07:45 Hgb 9.9 GM/dL (10.7-15.3) L 05/11/19 07:45 Hct 29.3 % (32.4-45.2) L D 05/11/19 07:45 MCV 84.7 fl (80-96) 05/11/19 07:45 MCHC 33.7 g/dl (32.0-36.0) 05/11/19 07:45 RDW 13.9 % (11.6-15.6) 05/11/19 07:45 Plt Count 200 K/MM3 (134-434) 05/11/19 07:45 MPV 6.9 fl (7.5-11.1) L 05/11/19 07:45 CMP Sodium 141 mmol/L (136-145) 05/11/19 07:45 Potassium 3.5 mmol/L (3.5-5.1) 05/11/19 07:45 Chloride 110 mmol/L (98-107) H 05/11/19 07:45 Carbon Dioxide 25 mmol/L (21-32) 05/11/19 07:45 Anion Gap 7 MMOL/L (8-16) L 05/11/19 07:45 BUN 10.6 mg/dL (7-18) 05/11/19 07:45 Creatinine 0.6 mg/dL (0.55-1.3) 05/11/19 07:45 Random Glucose 114 mg/dL (74-106) H 05/11/19 07:45 Calcium 8.2 mg/dL (8.5-10.1) L 05/11/19 07:45 Total Bilirubin 0.2 mg/dL (0.2-1) 05/11/19 07:45 AST 11 U/L (15-37) L 05/11/19 07:45 ALT 16 U/L (13-61) 05/11/19 07:45 Alkaline Phosphatase 64 U/L (45-117) 05/11/19 07:45 Total Protein 5.4 g/dl (6.4-8.2) L 05/11/19 07:45 Albumin 2.9 g/dl (3.4-5.0) L 05/11/19 07:45 Current Medications Generic Name Dose Route Start Last Admin Trade Name Freq PRN Reason Stop Dose Admin Acetaminophen 650 mg 05/10/19 06:11 05/11/19 10:38 Tylenol - PO 650 mg Q4H PRN Administration PAIN LEVEL 1-5 Albuterol Sulfate 1 amp 05/10/19 16:14 Ventolin 0.083% Nebulizer Soln - NEB Q6H PRN ASTHMA Diphenhydramine HCl 25 mg 05/10/19 22:00 05/10/19 21:09 Benadryl - PO 25 mg HS IBETH Administration Famotidine 20 mg 05/10/19 14:26 05/11/19 10:40 Pepcid - PO 20 mg BID IBETH Administration Sodium Chloride 1,000 mls @ 100 mls/hr 05/10/19 06:15 05/11/19 06:43 Normal Saline - IV 100 mls/hr ASDIR IBETH Administration Piperacillin Sod/Tazobactam 100 mls @ 200 mls/hr 05/10/19 11:15 05/11/19 10: 39 Sod 4.5 gm/ Dextrose IVPB 200 mls/hr Q8H-IV IBETH Administration Protocol Lactobacillus Acidophilus 1 tab 05/10/19 22:00 05/10/19 21:09 Bacid - PO 1 tab HS IBETH Administration Morphine Sulfate 1 mg 05/10/19 20:29 05/11/19 06:02 Morphine Sulfate IVPUSH 1 mg Q4H PRN Administration PAIN LEVEL 6-10 Potassium Chloride 40 meq 05/11/19 10:00 05/11/19 10:40 K-Dur - PO 40 meq DAILY IBETH Administration Home Medications Medication Instructions Recorded Diphenhydramine HCl [Benadryl 25 mg PO Q6H 06/06/17 Capsule -] Albuterol Sulfate Inhaler - 1 - 2 inh PO QID PRN 02/28/19 [Ventolin HFA Inhaler -] Potassium Chloride [K-Dur -] 40 meq PO DAILY #28 tablet.er 03/14/19 Acetaminophen [Tylenol -] 500 mg PO PRN PRN 05/10/19 Albuterol 0.083% Nebulizer Maddie 1 amp NEB DAILY PRN 05/10/19 [Ventolin 0.083% Nebulizer Soln -] Famotidine [Pepcid] 20 mg PO BID 05/10/19 Ibuprofen 600 mg PO PRN PRN 05/10/19 urine Test Results Urine Color Yellow 05/10/19 03:30 Urine Appearance Turbid 05/10/19 03:30 Urine pH 5.5 (5.0-8.0) 05/10/19 03:30 Ur Specific [place] 1.016 (1.010-1.035) 05/10/19 03:30 Urine Protein 1+ (NEGATIVE) H 05/10/19 03:30 Urine Glucose (UA) Negative (NEGATIVE) 05/10/19 03:30 Urine Ketones Negative (NEGATIVE) 05/10/19 03:30 Urine Blood 3+ (NEGATIVE) H 05/10/19 03:30 Urine Nitrite Negative (NEGATIVE) 05/10/19 03:30 Urine Bilirubin Negative (NEGATIVE) 05/10/19 03:30 Ur Leukocyte Esterase 3+ (NEGATIVE) H 05/10/19 03:30 Microbiology 05/10/19 09:30 Blood - Peripheral Venous Blood Culture - Preliminary NO GROWTH OBTAINED AFTER 24 HOURS, INCUBATION TO CONTINUE FOR 4 DAYS. 05/10/19 09:30 Blood - Peripheral Venous Blood Culture - Preliminary NO GROWTH OBTAINED AFTER 24 HOURS, INCUBATION TO CONTINUE FOR 4 DAYS. 05/10/19 03:30 Urine - Urine Clean Catch Urine Culture - Preliminary Lactose Fermenting Neg Bacilli CT abdomen and pelvis: left nephroureteral stent is seen. Mild left hydronephrosis which appeared improved since previous exam. 0.5 x 0.3cm left renal lower pole calculus is noted. No abscess is seen US of renal: Normal appearing kidney, mild left renal hydronephrosis with a stent seen questionable couple of tiny nonobstructing stones. 1.4cm right hepatic lobe cyst. ASSESSMENT AND PLAN: Patient is a 53yo F with PMHx of asthma, hypokalemia, and recent kidney stone and s/p nephrostomy tube due to having infected kidney stones admitted for having UTI/ Pyelonephritis. # Complicated UTI/Pyelonephritis with hx of kidney stone and Pylonephritis: [place] cx as above. No abscess is seen . continue with IV antibiotic Zosyn #Hx of Asthma: albuterol PRN Q4h DVT px: SCDs
[2019-05-11] MEDS: LACTOBACILLUS ACIDOPHILUS 1 TABLET PO SCH (21:49)
[2019-05-11] MEDS: diphenhydrAMINE HCL 25 MG CAPSULE (FP) PO SCH (21:50)
[2019-05-12] MEDS ORDERED: PIPERACILLIN/TAZOBACTAM 4.5 GM VIAL IVPB ONE ×2 (01:01→09:49)
[2019-05-12] MEDS ORDERED: DEXTROSE 5%-WATER 100 ML IVPB ONE ×2 (01:01→09:49)
[2019-05-12] MEDS: PIPERACILLIN/TAZOB 4.5 GM 4.5 GM in DEXTROSE 5%-WATER 100 ML IVPB SCH ×2 (01:16→09:51)
[2019-05-12] MEDS: SODIUM CHLORIDE 1,000 ML IV SCH (05:42)
[2019-05-12 08:28] LABS: BASO % 0.8 % (0-2.0); HEMATOCRIT 32.5 % (32.4-45.2); HEMOGLOBIN 10.9 GM/dL (10.7-15.3); LYMPH % 26.4 % (8-40); MCH 28.5 pg (25.7-33.7); MCHC 33.5 g/dl (32.0-36.0); MEAN CELL VOLUME 84.9 fl (80-96); MEAN PLT VOLUME 6.8 fl (7.5-11.1); MONO % 11.1 % (3.8-10.2); NEUT % 58.7 % (42.8-82.8); PLATELET COUNT 242 K/MM3 (134-434); RBC 3.83 M/mm3 (3.60-5.2); WHITE BLOOD COUNT 5.1 K/mm3 (4.0-10.0)
[2019-05-12 08:59] LABS: ALBUMIN 3.3 g/dl (3.4-5.0); BILIRUBIN,TOTAL 0.2 mg/dL (0.2-1); BLOOD UREA NITROGEN 10.5 mg/dL (7-18); CALCIUM 8.6 mg/dL (8.5-10.1); CREATININE 0.6 mg/dL (0.55-1.3); POTASSIUM 3.9 mmol/L (3.5-5.1); TOT PROT 6.3 g/dl (6.4-8.2)
[2019-05-12] MEDS: FAMOTIDINE 20 MG TABLET PO SCH (09:51)
[2019-05-12] MEDS: ACETAMINOPHEN 325 MG TABLET (FP) PO PRN (09:51)
[2019-05-12] MEDS: POTASSIUM CHLORIDE TABS 20 MEQ TABLET.ER (FP) PO SCH (09:51)
--- NOTE | 2019-05-12 15:34 | PN ---
Progress Note (short form) - Note Progress Note: feels improved no fevers no pain eating well Vital Signs Period Temp Pulse Resp BP Sys/Gifford Pulse Ox Last 24 Hr 97.8 F-98.1 F 80-94 20-20 127-156/69-98 98-99 cor-rrr lungs clear abd soft,nt no flank pain ext no edema ct scan noted- no renal abscess, +stent, +stone Microbiology 05/10/19 09:30 Blood - Peripheral Venous Blood Culture - Preliminary NO GROWTH OBTAINED AFTER 48 HOURS, INCUBATION TO CONTINUE FOR 3 DAYS. 05/10/19 09:30 Blood - Peripheral Venous Blood Culture - Preliminary NO GROWTH OBTAINED AFTER 48 HOURS, INCUBATION TO CONTINUE FOR 3 DAYS. 05/10/19 03:30 Urine - Urine Clean Catch Urine Culture - Final Enterobacter Aerogenes imp/reccd recurrent UTI with stent/stone-day #2 zosyn can switch to po bactrim - to finish total 14 days needs urology f/u d/w hospitalist service- they will speak to urology Problem List - Problems (1) Urinary tract infection Code(s): N39.0 - URINARY TRACT INFECTION, SITE NOT SPECIFIED Qualifiers: Qualified Code(s): N39.0 - Urinary tract infection, site not specified; R31.9 - Hematuria, unspecified (2) Nephrolithiasis Code(s): N20.0 - CALCULUS OF KIDNEY (3) S/P ureteral stent placement Code(s): Z96.0 - PRESENCE OF UROGENITAL IMPLANTS
--- NOTE | 2019-05-12 15:37 | PN ---
Teaching Attending Note Name of Resident: Krissy Gonzalez ATTENDING PHYSICIAN STATEMENT I saw and evaluated the patient. I reviewed the resident's note and discussed the case with the resident. I agree with the resident's findings and plan as documented. SUBJECTIVE: No fever or chills. dysuria, but improved from before. minimal lower abd pain. no diarrhea . OBJECTIVE: NAD Cv : RRR lungs: CTAB Abd: soft, minimal TTP in suprapubic area, no rebound, nl BS Ext: No edema. ASSESSMENT AND PLAN: 53 y/o lady with h/o nephrolithiasis, s/p L nephrostomy tube, s/p L ureteral stent, asthma, hypokalemia, iron def anemia and other medical problems who presented with dyuria and Abd pain and was found to have a UTI. 1- Complicated UTI: in presence of stents and stones. urine cx reviewed. sensitivity reviewed. switch to BActrim for 11 ore days ( total of 14 days ) . d/w ID . Urszula not covered by her insurance for ESWL as out pt on 06/01. 2- Chronic hypokalemia: cont K dur dispo : dc home . f/u with uro and PCP
--- NOTE | 2019-05-12 15:50 | DS ---
Physical Exam: SUBJECTIVE: Patient seen and examined. Patient is afebrile. Denies overnight events. Symptoms have improved significantly. Denies f/n/v/d/sob, chest pain, numbness or tingling. OBJECTIVE: Vital Signs Last Vital Signs Temp Pulse Resp BP Pulse Ox 99.1 F 94 H 20 141/93 98 05/12/19 16:20 05/12/19 16:20 05/12/19 16:20 05/12/19 16:20 05/12/19 09:00 PHYSICAL EXAM GENERAL: The patient is awake, alert, and fully oriented, Very anxious. EYES: PERRL, extraocular movements intact, ENT: moist mucous membranes. LUNGS: Breath sounds equal, clear to auscultation bilaterally, no wheezes, no crackles, HEART: Regular rate and rhythm, S1, S2 without murmur, rub or gallop. ABDOMEN: Soft, nondistended, normoactive bowel sounds, no guarding, BS+ EXTREMITIES: Mild nonpitting edema b/l. 2+ pulses, warm, SKIN: Warm, dry LABS Laboratory Results - last 24 hr CBC,CMP WBC 5.1 K/mm3 (4.0-10.0) 05/12/19 07:52 RBC 3.83 M/mm3 (3.60-5.2) 05/12/19 07:52 Hgb 10.9 GM/dL (10.7-15.3) 05/12/19 07:52 Hct 32.5 % (32.4-45.2) 05/12/19 07:52 MCV 84.9 fl (80-96) 05/12/19 07:52 MCH 28.5 pg (25.7-33.7) 05/12/19 07:52 MCHC 33.5 g/dl (32.0-36.0) 05/12/19 07:52 RDW 14.0 % (11.6-15.6) 05/12/19 07:52 Plt Count 242 K/MM3 (134-434) D 05/12/19 07:52 MPV 6.8 fl (7.5-11.1) L 05/12/19 07:52 Absolute Neuts (auto) 3.0 K/mm3 (1.5-8.0) 05/12/19 07:52 Neutrophils % 58.7 % (42.8-82.8) D 05/12/19 07:52 Lymphocytes % 26.4 % (8-40) D 05/12/19 07:52 Monocytes % 11.1 % (3.8-10.2) H 05/12/19 07:52 Eosinophils % 3.0 % (0-4.5) D 05/12/19 07:52 Basophils % 0.8 % (0-2.0) 05/12/19 07:52 Nucleated RBC % 0 % (0-0) 05/12/19 07:52 Sodium 144 mmol/L (136-145) 05/12/19 07:52 Potassium 3.9 mmol/L (3.5-5.1) 05/12/19 07:52 Chloride 110 mmol/L (98-107) H 05/12/19 07:52 Carbon Dioxide 27 mmol/L (21-32) 05/12/19 07:52 Anion Gap 7 MMOL/L (8-16) L 05/12/19 07:52 BUN 10.5 mg/dL (7-18) 05/12/19 07:52 Creatinine 0.6 mg/dL (0.55-1.3) 05/12/19 07:52 Est GFR (CKD-EPI)AfAm 118.93 05/12/19 07:52 Est GFR (CKD-EPI)NonAf 102.61 05/12/19 07:52 Random Glucose 98 mg/dL (74-106) 05/12/19 07:52 Calcium 8.6 mg/dL (8.5-10.1) 05/12/19 07:52 Phosphorus 3.5 mg/dL (2.5-4.9) 05/10/19 07:52 Magnesium 2.3 mg/dL (1.8-2.4) 05/10/19 07:52 Total Bilirubin 0.2 mg/dL (0.2-1) 05/12/19 07:52 AST 11 U/L (15-37) L 05/12/19 07:52 ALT 19 U/L (13-61) 05/12/19 07:52 Alkaline Phosphatase 68 U/L (45-117) 05/12/19 07:52 Total Protein 6.3 g/dl (6.4-8.2) L 05/12/19 07:52 Albumin 3.3 g/dl (3.4-5.0) L 05/12/19 07:52 TSH 1.96 uIU/ml (0.358-3.74) 05/10/19 07:52 Current Medications Acetaminophen (Tylenol -) 650 mg PO Q4H PRN PRN Reason: PAIN LEVEL 1-5 Last Admin: 05/12/19 09:51 Dose: 650 mg Albuterol Sulfate (Ventolin 0.083% Nebulizer Soln -) 1 amp NEB Q6H PRN PRN Reason: ASTHMA Diphenhydramine HCl (Benadryl -) 25 mg PO HS [facility] Last Admin: 05/11/19 21:50 Dose: 25 mg Famotidine (Pepcid -) 20 mg PO BID [facility] Last Admin: 05/12/19 09:51 Dose: 20 mg Sodium Chloride (Normal Saline -) 1,000 mls @ 100 mls/hr IV ASDIR [facility] Last Admin: 05/12/19 05:42 Dose: 100 mls/hr Lactobacillus Acidophilus (Bacid -) 1 tab PO HS [facility] Last Admin: 05/11/19 21:49 Dose: 1 tab Potassium Chloride (K-Dur -) 40 meq PO DAILY [facility] Last Admin: 05/12/19 09:51 Dose: 40 meq Home Medications Medication Instructions Recorded Diphenhydramine HCl [Benadryl 25 mg PO HS 06/06/17 Capsule -] Albuterol Sulfate Inhaler - 1 - 2 inh PO QID PRN 02/28/19 [Ventolin HFA Inhaler -] Potassium Chloride [K-Dur -] 40 meq PO DAILY #28 tablet.er 03/14/19 Acetaminophen [Tylenol 500 mg PO PRN PRN 05/10/19 .Extra-Strength -] Albuterol 0.083% Nebulizer Maddie 1 amp NEB DAILY PRN 05/10/19 [Ventolin 0.083% Nebulizer Soln -] Famotidine [Pepcid] 20 mg PO BID 05/10/19 Ibuprofen 600 mg PO PRN PRN 05/10/19 Lactobacillus Acidophilus [Bacid -] 1 tab PO HS 11 Days #11 tab 05/12/19 Sulfamethoxazole/Trimethoprim 1 tab PO BID 11 Days #22 tablet 05/12/19 [Bactrim Ds -] Microbiology 05/10/19 09:30 Blood - Peripheral Venous Blood Culture - Preliminary NO GROWTH OBTAINED AFTER 48 HOURS, INCUBATION TO CONTINUE FOR 3 DAYS. 05/10/19 09:30 Blood - Peripheral Venous Blood Culture - Preliminary NO GROWTH OBTAINED AFTER 48 HOURS, INCUBATION TO CONTINUE FOR 3 DAYS. 05/10/19 03:30 Urine - Urine Clean Catch Urine Culture - Final Enterobacter Aerogenes HOSPITAL COURSE: Date of Admission:05/10/19 53 y/o F, pmh of asthma, hypokalemia, and kidney stone recent admission for sepsis secondary to pyelonephritis from infected stone s/p L stent placement was admitted for sepsis 2/ to complicated UTI. UCx grew enterobacter resistant to ampicillin and cefazolin. Pt was given 3 days of zosyn, morphine and lactobacillus, and her symptoms significantly improved. CT scans and U/S r/o pyelo. She was discharged home on bactrim DS for [address] abd: negative. .5x.3 stone on the lower pole of the left kidney. No acute changes US abd: kidney normal EKG: NSR Date of Discharge: 05/12/19 Discharge Summary Problems reviewed: Yes Reason For Visit: URINARY TRACT INFECTION, CALCULUS OF KIDNEY, Current Active Problems Renal calculus (Chronic) S/P ureteral stent placement (Chronic) Ureteral calculus (Chronic) Condition: Improved - Instructions Diet, Activity, Other Instructions: You were admitted for a urinary tract infection. While you were in the hospital, we evaluated you with multiple tests including lab work, blood work, and urine tests. We also did imaging tests including CAT scans, x rays and EKG. We monitored you, and treated you with medications like Antibiotics and your symptoms resolved. To complete treatment of your UTI: You must take Bactrim DS twice a day for 11 more days You must follow up with your urologist for Lithotripsy 06/01/19 Continue all your home medications as prescribed Follow up with your Primary care physician within 1 week Return to the emergency room if you have any chest pain, shortness of breath, nausea, vomiting, or worsening of symptoms follow up with Dr. Landeros , in 1 week Referrals: Nathaly Mohr MD [Primary Care Provider] - Mesfin Landeros MD [Staff Physician] - Disposition: HOME - Home Medications Comprehensive Discharge Medication List: Ambulatory Orders Diphenhydramine HCl [Benadryl Capsule -] 25 mg PO HS 06/06/17 Albuterol Sulfate Inhaler - [Ventolin HFA Inhaler -] 1 - 2 inh PO QID PRN Potassium Chloride [K-Dur -] 40 meq PO DAILY #28 tablet.er 03/14/19 Acetaminophen [Tylenol .Extra-Strength -] 500 mg PO PRN PRN 05/10/19 Albuterol 0.083% Nebulizer Maddie [Ventolin 0.083% Nebulizer Soln -] 1 amp NEB DAILY PRN 05/10/19 Famotidine [Pepcid] 20 mg PO BID 05/10/19 Ibuprofen 600 mg PO PRN PRN 05/10/19 Lactobacillus Acidophilus [Bacid -] 1 tab PO HS 11 Days #11 tab 05/12/19 Sulfamethoxazole/Trimethoprim [Bactrim Ds -] 1 tab PO BID 11 Days #22 tablet - Discharge Referral Referred to [facility] Med P.C.: No ATTENDING PHYSICIAN STATEMENT I saw and evaluated the patient. I reviewed the resident's note and discussed the case with the resident. I agree with the resident's findings and plan as documented. SUBJECTIVE: OBJECTIVE: ASSESSMENT AND PLAN:
[2019-05-12 17:09] VITALS: BP 141/93; PULSE 94; TEMP 99.1
== END 2019-05-12 19:13 | disposition home or self-care (01) | DRG 463 ==
LOC: JER 01:23 → JERBED 04:20 → J8W 06:37
PROVIDERS: ADMIT Internal Medicine; ATTEND Internal Medicine
DX: N39.0 Urinary tract infection, site not specified (principal); F17.210 Nicotine dependence, cigarettes, uncomplicated; J45.909 Unspecified asthma, uncomplicated; E87.6 Hypokalemia; R31.9 Hematuria, unspecified; N20.0 Calculus of kidney; N13.6 Pyonephrosis; K76.89 Other specified diseases of liver
CPT/HCPCS: 36415; 74177-TC; 76775-TC; 80053; 81003; 83735; 84100; 84443; 85025; 85610; 85730; 87040; 87086; 87186; 87804; 87807; 93005; 93010; 97116-GP; 99283-25; J7030; Q9967

== ENCOUNTER 2019-08-06 02:14 | Emergency (ER) | payer OTHER ==
[2019-08-06 02:43] VITALS: TEMP 97.6; BMI 32.5
--- NOTE | 2019-08-06 02:50 | PDOC ---
History of Present Illness - General Chief Complaint: Asthma Stated Complaint: SOB Time Seen by Provider: 08/06/19 02:30 History Source: Patient Exam Limitations: No Limitations - History of Present Illness Initial Comments: Juju Rubio is a 53 yo F w a hx of asthma, kidney stones, multiple UTI's, recent admission for pyelonephritis, separate admission for an infected stone, has a L ureteral stent who presents to the [facility] er with 4 days of worsening dysuria, frequency, urgency, hematuria, and left flank pain saying she knows her kidney is infected because this has happened to her several times and this is how she always feels. She did not want to come to the hospital because she was hoping it would go away but her symptoms worsened to the point where she could no longer take the flank pain so she came to the hospital to be evaluated. Patient states she has not had fevers but has been getting intense episodes of the chills today. Patient denies nausea, vomiting, fevers, chest pain, diarrhea, constipation, headache, neck pain, or blurry vision PCP: Dr. Dianne Martin Allergies: See med chart PSH: Hysterectomy for ovarian cancer Social Hx: Denies smoking, drinking, or other substance usage Past History - Past Medical History Allergies/Adverse Reactions: Allergies Allergy/AdvReac Type Severity Reaction Status Date / Time polyethylene glycol Allergy Severe Difficulty Verified 05/10/19 02:21 Breathing latex Allergy Mild Verified 05/10/19 02:21 lidocaine Allergy Verified 05/10/19 02:21 orange Allergy Verified 05/10/19 04:48 paprika Allergy Verified 05/10/19 02:21 peanut Allergy Difficulty Verified 05/10/19 02:21 Breathing procaine HCl [From Novocain] Allergy Verified 05/10/19 02:21 POLYURETHANE Allergy Intermediate Swelling Uncoded 05/10/19 02:21 shrimp Allergy Intermediate Hives Uncoded 05/10/19 02:21 Home Medications: Ambulatory Orders Diphenhydramine HCl [Benadryl Capsule -] 25 mg PO HS 06/06/17 Albuterol Sulfate Inhaler - [Ventolin HFA Inhaler -] 1 - 2 inh PO QID PRN Potassium Chloride [K-Dur -] 40 meq PO DAILY #28 tablet.er 03/14/19 Acetaminophen [Tylenol .Extra-Strength -] 500 mg PO PRN PRN 05/10/19 Albuterol 0.083% Nebulizer Maddie [Ventolin 0.083% Nebulizer Soln -] 1 amp NEB DAILY PRN 05/10/19 Famotidine [Pepcid] 20 mg PO BID 05/10/19 Ibuprofen 600 mg PO PRN PRN 05/10/19 Lactobacillus Acidophilus [Bacid -] 1 tab PO HS 11 Days #11 tab 05/12/19 Sulfamethoxazole/Trimethoprim [Bactrim Ds -] 1 tab PO BID 11 Days #22 tablet Anemia: (HYPOKALEMIA) Asthma: Yes Cardiac Disorders: Yes (SVT) COPD: No DVT: No GI Disorders: Yes (ulcer, GERD) Disorders: Yes (right ovarian cyst status post surgery, status post hysterectomy, still has) HTN: No Kidney Stones: (Kidney problems.) Psychiatric Problems: Yes (anxiety, depression) - Surgical History Abdominal Surgery: Yes (hysterectomy and right oophorectomy) - Immunization History Td Vaccination: No TDAP Vaccination: No Immunization Up to Date: No (Unknown) - Psycho Social/Smoking Cessation Hx Smoking Status: No Smoking History: Never smoked Years of Tobacco Use: 0 Have you smoked in the past 12 months: Yes Number of Cigarettes Smoked Daily: 1 Cigars Per Day: 0 Information on smoking cessation initiated: No 'Breaking Loose' booklet given: 05/10/19 Hx Alcohol Use: No Drug/Substance Use Hx: No Substance Use Type: None Hx Substance Use Treatment: No Review of Systems - Review of Systems Able to Perform ROS?: Yes Comments:: CONSTITUTIONAL: Absent: fever, no chills, no fatigue EYES: Absent: visual changes ENT: Absent: ear pain, no sore throat CARDIOVASCULAR: Absent: chest pain, no palpitations RESPIRATORY: Present: SOB Absent: cough GI: Absent: Abdominal pain, no nausea, no vomiting, no constipation, no diarrhea GENITOURINARY: Present: dysuria, frequency, hematuria MUSKULOSKELETAL: Present: Back and flank pain Absent: no arthralgia, no myalgia SKIN: Absent: rash NEURO: Absent: headache *Physical Exam - Vital Signs Last Vital Signs Temp Pulse Resp BP Pulse Ox 97.6 F 91 H 20 154/95 98 08/06/19 02:33 08/06/19 02:33 08/06/19 02:33 08/06/19 02:33 08/06/19 02:33 - Physical Exam GENERAL: Well-appearing, well-nourished. No apparent distress. HEENT: Normocephalic, atraumatic. PERRL, EOM intact. CARDIOVASCULAR: Normal S1, S2. Regular rate and rhythm. PULMONARY: No evidence of respiratory distress. Lungs clear to auscultation bilaterally. No wheezing, rales or rhonchi. ABDOMEN: There is left CVA TTP, mild suprapubic TTP. otherwise abdomen is soft and non- distended. EXTREMITIES: Normal ROM in all four extremities. No gross deformities. SKIN: Warm, dry. No rash NEUROLOGICAL: No focal neurological deficits. ED Treatment Course - LABORATORY CBC & Chemistry Diagram: 08/06/19 03:25 08/06/19 03:25 Medical Decision Making - Medical Decision Making Juju Rubio is a 53 yo F w a hx of asthma, kidney stones, multiple UTI's, recent admission for pyelonephritis, separate admission for an infected stone, has a L ureteral stent who presents to the [facility] er with 4 days of worsening dysuria, frequency, urgency, hematuria, and left flank pain saying she knows her kidney is infected because this has happened to her several times and this is how she always feels. She did not want to come to the hospital because she was hoping it would go away but her symptoms worsened to the point where she could no longer take the flank pain so she came to the hospital to be evaluated. Patient states she has not had fevers but has been getting intense episodes of the chills today. Vital Signs Temp Pulse Resp BP Pulse Ox 97.6 F 91 H 20 154/95 98 08/06/19 02:33 08/06/19 02:33 08/06/19 02:33 08/06/19 02:33 08/06/19 02:33 DDx IBNLT: UTI, pylonephriotis, electrolyte/metabolic disturbance, renal colic , infected kidney stone Plan: labs, urine, IV hydration, analgesia,re-assess Labs: Elevated BUN - hydrating patient Urine: No signs of blood or infection Re-assessment: Patient endorses significant analgesia after toradol Disposition: Home with PCP and uro FU Discharge - Discharge Information Problems reviewed: Yes Clinical Impression/Diagnosis: Renal calculus Condition: Improved Disposition: HOME - Admission No - Follow up/Referral Referrals: Dianne Martin [Primary Care Provider] - - Patient Discharge Instructions Patient Printed Discharge Instructions: Kidney Stones -- Adult Additional Instructions: You came into the ER with left flank pain. We looked at your blood and urine and found no abnormalities. We believe the reason you are experiencing your pain is because you have a kidney stone. Take motrin/ibuprofen/advil as needed for pain control. Please schedule a follow up appointment with your urologist in the next week for follow up Come back to the ER immediately if your pain worsens, you start vomiting, or have any other new or worsening concerns. Print Language: SLOVAK - Post Discharge Activity
[2019-08-06] MEDS ORDERED: ACETAMINOPHEN 1000 MG/100 ML VIAL (NON FORMULARY) IVPB ONE (02:51)
[2019-08-06] MEDS ORDERED: ALBUTEROL SO4 2.5/IPRATROPIUM 0.5 INH SOL 3 ML VIAL.NEB. NEB ONE ×2 (02:51→03:10)
[2019-08-06] MEDS ORDERED: SODIUM CHLORIDE 0.9% 500 ML INFUS.BAG IV ONE (02:51)
--- NOTE | 2019-08-06 02:59 | PDOC ---
Attending Attestation - Resident Resident Name: Edvin Dominguez - ED Attending Attestation I have performed the following: I have examined & evaluated the patient, The case was reviewed & discussed with the resident, I agree w/resident's findings & plan, Exceptions are as noted - HPI HPI: 08/19/19 19:59 See resident HPI - Physicial Exam PE: 08/19/19 19:59 Agree with documented exam - Medical Decision Making 08/19/19 19:59 53F with L sided flank px with significant hx of pyelonephritis, nephrolithiasis , infected stone analgesia, f/u labs, ua dispo per clinical course No infection/blood in urine pain free on re-eval dc home
[2019-08-06] MEDS ORDERED: ACETAMINOPHEN INJECTION 100 ML IVPB ONE (03:06)
[2019-08-06 03:39] LABS: BASO % 0.9 % (0-2.0); EOS % 1.7 % (0-4.5); HEMOGLOBIN 12.6 GM/dL (10.7-15.3); LYMPH % 25.2 % (8-40); MCH 27.9 pg (25.7-33.7); MCHC 33.3 g/dl (32.0-36.0); MEAN CELL VOLUME 83.8 fl (80-96); MEAN PLT VOLUME 7.5 fl (7.5-11.1); MONO % 6.7 % (3.8-10.2); NEUT % 65.5 % (42.8-82.8); PLATELET COUNT 273 K/MM3 (134-434); RBC 4.53 M/mm3 (3.60-5.2); RDW 14.4 % (11.6-15.6); WHITE BLOOD COUNT 8.3 K/mm3 (4.0-10.0)
[2019-08-06 03:41] LABS: EPI CELLS 1.3 /HPF (0-5/HPF); HYALINE CASTS 0 /lpf (0-8); PH,URINE 5.5 (5.0-8.0); URINE APPEARANCE CLEAR; URINE BACTERIA 20.8 /hpf (NEGATIVE); URINE BILIRUBIN NEGATIVE (NEGATIVE); URINE COLOR YELLOW; URINE GLUCOSE (UA) NEGATIVE (NEGATIVE); URINE KETONE NEGATIVE (NEGATIVE); URINE LEUK ESTERASE TRACE (NEGATIVE); URINE NITRITE NEGATIVE (NEGATIVE); URINE PROTEIN NEGATIVE (NEGATIVE); URINE RBC 1 /hpf (0-4); URINE UROBILINOGEN 0.2 mg/dL (0.2-1.0); URINE WBC 5 /hpf (0-5)
[2019-08-06 04:05] LABS: ALBUMIN 4.4 g/dl (3.4-5.0); BILIRUBIN,TOTAL 0.2 mg/dL (0.2-1); BLOOD UREA NITROGEN 27.2 mg/dL (7-18); CALCIUM 9.5 mg/dL (8.5-10.1); CREATININE 0.7 mg/dL (0.55-1.3); POTASSIUM 3.7 mmol/L (3.5-5.1); TOT PROT 7.5 g/dl (6.4-8.2)
[2019-08-06] MEDS ORDERED: KETOROLAC TROMETHAMINE 30 MG/1 ML VIAL IVPUSH ONE (04:19)
[2019-08-06] MEDS ORDERED: KETOROLAC TROMETHAMINE 30 MG/1 ML VIAL ONE (05:00)
[2019-08-06 06:54] VITALS: BP 133/77; PULSE 93
== END 2019-08-06 06:50 | disposition home or self-care (01) ==
LOC: JER 02:14
PROC: 3E033NZ Introduction of Analgesics, Hypnotics, Sedatives into Peripheral Vein, Percutaneous Approach (ICD-10-PCS; principal; 2019-08-06)
PROC: 3E0333Z Introduction of Anti-inflammatory into Peripheral Vein, Percutaneous Approach (ICD-10-PCS; 2019-08-06)
DX: N20.0 Calculus of kidney (principal); J45.909 Unspecified asthma, uncomplicated; Z87.440 Personal history of urinary (tract) infections
CPT/HCPCS: 36415; 80053; 81003; 84484; 85025; 87086; 96374; 96375; 99284-25; J0131

== ENCOUNTER 2019-09-05 19:12 | Emergency (ER) | payer OTHER ==
[2019-09-05 19:37] VITALS: BP 141/83; PULSE 86; TEMP 98.5; BMI 34.0
[2019-09-05 20:12] LABS: EPI CELLS 5.8 /HPF (0-5/HPF); HYALINE CASTS 5 /lpf (0-8); PH,URINE 5.5 (5.0-8.0); URINE APPEARANCE CLEAR; URINE BACTERIA 77.7 /hpf (NEGATIVE); URINE BILIRUBIN NEGATIVE (NEGATIVE); URINE COLOR YELLOW; URINE GLUCOSE (UA) NEGATIVE (NEGATIVE); URINE KETONE NEGATIVE (NEGATIVE); URINE LEUK ESTERASE TRACE (NEGATIVE); URINE NITRITE NEGATIVE (NEGATIVE); URINE PROTEIN NEGATIVE (NEGATIVE); URINE RBC 1 /hpf (0-4); URINE UROBILINOGEN 0.2 mg/dL (0.2-1.0); URINE WBC 8 /hpf (0-5)
--- NOTE | 2019-09-05 21:49 | PDOC ---
History of Present Illness - General Chief Complaint: Pain Stated Complaint: LT KIDNEY PAIN Time Seen by Provider: 09/05/19 20:01 History Source: Patient Exam Limitations: No Limitations - History of Present Illness Travel History: No Initial Comments: 09/05/19 23:14 HISTORY OF PRESENT ILLNESS: 53-year-old woman with past medical history of frequent UTIs and kidney stones who presents emergency department for evaluation of left flank pain over the past 3 days. Patient was seen and evaluated at [facility] emergency department with associated urinary tract infection. She was initially started on doxycycline which she had a difficult time tolerating. Patient was contacted by emergency department and told that she needed to have her antibiotics changed and was placed on Macrobid. Patient is concerned that treatment is insufficient presenting today for continued evaluation. No recent travel or sick contacts. PAST MEDICAL HISTORY: See HPI SURGICAL HISTORY: Denies ALLERGIES: No known drug allergies REVIEW OF SYSTEMS General/Constitutional: Denies fever or chills. Denies weakness, weight change. HEENT: Denies change in vision. Denies ear pain or discharge. Denies sore throat. Cardiovascular: Denies chest pain or shortness of breath. Respiratory: Denies cough, wheezing, or hemoptysis. Gastrointestinal: Denies nausea, vomiting, diarrhea or constipation. Denies rectal bleeding. Genitourinary: See HPI Musculoskeletal: Denies joint or muscle swelling or pain. Denies neck or back pain. Skin and breasts: Denies rash or easy bruising. Neurologic: Denies headache, vertigo, loss of consciousness, or loss of sensation. Psychiatric: Denies depression or anxiety. Endocrine: Denies increased thirst. Denies abnormal weight change. Hematologic/Lymphatic: Denies anemia, easy bleeding, or history of blood clots. Allergic/Immunologic: Denies hives or skin allergy. Denies latex allergy. PHYSICAL EXAM General Appearance: Well-appearing, appropriately dressed. No apparent distress , no intoxication. Gastrointestinal/Abdominal: Normal bowel sounds. Abdomen soft, non-distended. No tenderness or rebound tenderness. No organomegaly, pulsatile mass, guarding, hernia, hepatomegaly, splenomegaly. Musculoskeletal/Extremities: Normal inspection. FROM of all extremities, normal capillary refill. Pelvis Stable. No CVA tenderness. No tenderness to extremities, pedal edema, swelling, erythema or deformity. Past History - Past Medical History Allergies/Adverse Reactions: Allergies Allergy/AdvReac Type Severity Reaction Status Date / Time polyethylene glycol Allergy Severe Difficulty Verified 09/05/19 19:37 Breathing latex Allergy Mild Verified 09/05/19 19:37 lidocaine Allergy Verified 09/05/19 19:37 orange Allergy Verified 09/05/19 19:37 paprika Allergy Verified 09/05/19 19:37 peanut Allergy Difficulty Verified 09/05/19 19:37 Breathing procaine HCl [From Novocain] Allergy Verified 09/05/19 19:37 POLYURETHANE Allergy Intermediate Swelling Uncoded 09/05/19 19:37 shrimp Allergy Intermediate Hives Uncoded 09/05/19 19:37 Home Medications: Ambulatory Orders Diphenhydramine HCl [Benadryl Capsule -] 25 mg PO HS 06/06/17 Albuterol Sulfate Inhaler - [Ventolin HFA Inhaler -] 1 - 2 inh PO QID PRN Potassium Chloride [K-Dur -] 40 meq PO DAILY #28 tablet.er 03/14/19 Acetaminophen [Tylenol .Extra-Strength -] 500 mg PO PRN PRN 05/10/19 Albuterol 0.083% Nebulizer Maddie [Ventolin 0.083% Nebulizer Soln -] 1 amp NEB DAILY PRN 05/10/19 Famotidine [Pepcid] 20 mg PO BID 05/10/19 Ibuprofen 600 mg PO PRN PRN 05/10/19 Lactobacillus Acidophilus [Bacid -] 1 tab PO HS 11 Days #11 tab 05/12/19 Sulfamethoxazole/Trimethoprim [Bactrim Ds -] 1 tab PO BID 11 Days #22 tablet Cefpodoxime Proxetil [Vantin -] 200 mg PO Q12H #20 tablet 09/05/19 Anemia: (HYPOKALEMIA) Asthma: Yes Cardiac Disorders: Yes (SVT) COPD: No DVT: No GI Disorders: Yes (ulcer) Disorders: Yes (right ovarian cyst status post surgery, status post hysterectomy, still has) HTN: No Kidney Stones: (Kidney problems.) Psychiatric Problems: Yes (anxiety, depression) Other medical history: UTI, hypokalemia - Surgical History Abdominal Surgery: Yes (hysterectomy and right oophorectomy) - Immunization History Td Vaccination: No TDAP Vaccination: No Immunization Up to Date: Yes - Psycho Social/Smoking Cessation Hx Smoking Status: No Smoking History: Never smoked Years of Tobacco Use: 0 Have you smoked in the past 12 months: No Number of Cigarettes Smoked Daily: 1 Cigars Per Day: 0 Information on smoking cessation initiated: No 'Breaking Loose' booklet given: 05/10/19 Hx Alcohol Use: No Drug/Substance Use Hx: No Substance Use Type: None Hx Substance Use Treatment: No Abd/GI Specific PMHX - Complaint Specific PMHX GERD: No GI Ulcer Disease: No *Physical Exam - Vital Signs Last Vital Signs Temp Pulse Resp BP Pulse Ox 98.5 F 86 18 141/83 100 09/05/19 19:34 09/05/19 19:34 09/05/19 19:34 09/05/19 19:34 09/05/19 19:34 ED Treatment Course - ADDITIONAL ORDERS Additional order review: Laboratory Results 09/05/19 20:00 Urine Color Yellow Urine Appearance Clear Urine pH 5.5 Ur Specific [place] 1.025 Urine Protein Negative Urine Glucose (UA) Negative Urine Ketones Negative Urine Blood Negative Urine Nitrite Negative Urine Bilirubin Negative Urine Urobilinogen 0.2 Ur Leukocyte Esterase Trace Urine WBC (Auto) 8 Urine RBC (Auto) 1 Urine Casts (Auto) 5 U Epithel Cells (Auto) 5.8 Urine Bacteria (Auto) 77.7 - RADIOLOGY Radiology Studies Ordered: Category Date Time Status KIDNEY / RENAL US [US] Stat Ultrasound 09/05/19 20:19 Taken Medical Decision Making - Medical Decision Making 09/05/19 23:16 A/P: 53-year-old woman for reevaluation of flank pain with known UTI Physical exam is unremarkable Urinalysis, urine culture Renal ultrasound The patient has requested to leave the ED against medical advice. Pt did not want repeat VS or to wait for ultrasound results. The patient reason(s) for leaving include, but are not limited to, the following : She did not want to wait for results and wanted to get to work. I believe this patient is of sound mind and competent to refuse medical care. The patient is responding and asking questions appropriately. The patient is oriented to person, place and time. The patient is not psychotic, delusional, suicidal, homicidal or hallucinating. The patient demonstrates a normal mental capacity to make decisions regarding their healthcare. The patient is clinically sober and does not appear to be under the influence of any illicit drugs at this time. The patient has been advised of the risks, in layman terms, of leaving AMA which include, but are not limited to: Renal failure, severe infection, dehydration, septic stone, urosepsis, severe permanent disability, loss of current lifestyle, delay in diagnosis and . Alternatives have been offered - the patient remains steadfast in their wish to leave. will have to call back with results of ultrasound if abnormal, callback request made through the EMR. The patient has been advised that should they change their mind they are welcome to return to this hospital, or any other, at any time. The patient understands that in no way does an AMA discharge mean that I do not want them to have the best medical care available. To this end, I have provided appropriate prescriptions, referrals, and discharge instructions. The patient did sign AMA paperwork. The above discussion was witnessed by another member of staff, ALMA Lafleur. Discharge - Discharge Information Problems reviewed: Yes Clinical Impression/Diagnosis: Flank pain Condition: Fair Disposition: AGAINST MEDICAL ADVICE - Additional Discharge Information Prescriptions: Cefpodoxime Proxetil [Vantin -] 200 mg PO Q12H #20 tablet - Follow up/Referral Referrals: Dianne Martin [Primary Care Provider] - CallBack Reminder: results - Patient Discharge Instructions Additional Instructions: Rest, drink lots of fluids: Teas, water, soups Avoid contact with others until fevers and symptoms resolved Lots of handwashing and good hygiene Continue [id number] medications for symptomatic relief Tylenol or Motrin for fever and pain Continue all of antibiotics until completed Followup with your urologist in one week for repeat urinalysis/reevaluation Return to emergency department for worsened symptoms, fevers, dehydration - Post Discharge Activity
== END 2019-09-05 21:50 | disposition left against medical advice (07) ==
LOC: JER 19:12 → JERFT 19:12
DX: R10.32 Left lower quadrant pain (principal); Z87.440 Personal history of urinary (tract) infections; Z87.442 Personal history of urinary calculi; F41.9 Anxiety disorder, unspecified; F32.9 Major depressive disorder, single episode, unspecified; J45.909 Unspecified asthma, uncomplicated; Z87.19 Personal history of other diseases of the digestive system; Z86.39 Personal history of other endocrine, nutritional and metabolic disease; Z90.710 Acquired absence of both cervix and uterus; Z90.721 Acquired absence of ovaries, unilateral
CPT/HCPCS: 76775-TC; 81003; 87086; 87186; 99284-25

== ENCOUNTER 2020-02-25 19:01 | Inpatient (IN) | payer OTHER ==
[2020-02-25 19:18] VITALS: BMI 34.5
--- NOTE | 2020-02-25 19:32 | PDOC ---
History of Present Illness - General Chief Complaint: Urinary Problem Stated Complaint: BACK PAIN/PAINFUL URINATION Time Seen by Provider: 02/25/20 19:22 History Source: Patient Exam Limitations: No Limitations - History of Present Illness Initial Comments: 02/25/20 19:32 54F PMH recurrent UTIs and renal stones complicated by sepsis, asthma, chronic hypokalemia presenting with 1 week of dysuria, urinary frequency, foul smelling urine and a few day onset of suprapubic and b/l flank aching. Denies f/c, n/v, abnormal vaginal sx. Multiple allergies reviewed with patient. Past History - Medical History Allergies/Adverse Reactions: Allergies Allergy/AdvReac Type Severity Reaction Status Date / Time polyethylene glycol Allergy Severe Difficulty Verified 02/25/20 19:07 Breathing latex Allergy Mild Verified 02/25/20 19:07 lidocaine Allergy Verified 02/25/20 19:07 orange Allergy Verified 02/25/20 19:07 paprika Allergy Verified 02/25/20 19:07 peanut Allergy Difficulty Verified 02/25/20 19:07 Breathing procaine HCl [From Novocain] Allergy Verified 02/25/20 19:07 POLYURETHANE Allergy Intermediate Swelling Uncoded 02/25/20 19:07 shrimp Allergy Intermediate Hives Uncoded 02/25/20 19:07 Home Medications: Ambulatory Orders Diphenhydramine HCl [Benadryl Capsule -] 25 mg PO HS 06/06/17 Albuterol Sulfate Inhaler - [Ventolin HFA Inhaler -] 1 - 2 inh PO QID PRN 02/28/19 Potassium Chloride [K-Dur -] 40 meq PO DAILY #28 tablet.er 03/14/19 Acetaminophen [Tylenol .Extra-Strength -] 500 mg PO PRN PRN 05/10/19 Albuterol 0.083% Nebulizer Maddie [Ventolin 0.083% Nebulizer Soln -] 1 amp NEB DAILY PRN 05/10/19 Famotidine [Pepcid] 20 mg PO BID 05/10/19 Ibuprofen 600 mg PO PRN PRN 05/10/19 Lactobacillus Acidophilus [Bacid -] 1 tab PO HS 11 Days #11 tab 05/12/19 Sulfamethoxazole/Trimethoprim [Bactrim Ds -] 1 tab PO BID 11 Days #22 tablet 05/12/19 Levofloxacin [Levaquin] 750 mg PO DAILY #5 tablet 09/10/19 Anemia: (HYPOKALEMIA) Asthma: Yes Cardiac Disorders: Yes (SVT) COPD: No DVT: No GI Disorders: Yes (ulcer) Disorders: Yes (right ovarian cyst status post surgery, status post hysterectomy, still has) HTN: No Kidney Stones: (Kidney problems.) Psychiatric Problems: Yes (anxiety, depression) - Surgical History Abdominal Surgery: Yes (hysterectomy and right oophorectomy) - Immunization History Td Vaccination: No TDAP Vaccination: No Immunization Up to Date: Yes - Psycho-Social/Smoking History Smoking Status: No Smoking History: Never smoked Years of Tobacco Use: 0 Have you smoked in the past 12 months: No Number of Cigarettes Smoked Daily: 1 Cigars Per Day: 0 'Breaking Loose' booklet given: 05/10/19 - Substance Abuse Hx (Audit-C & DAST Scrn) How often the patient has a drink containing alcohol: Never Score: In Men: 4 or > Positive; In Women: 3 or > Positive: 0 Screen Result (Pos requires Nsg. Audit-10AR): Negative Review of Systems - Review of Systems Comments:: 02/26/20 06:26 CONSTITUTIONAL: Denies F / C HEENT: Denies headache, lightheadedness, dizziness, sore throat, rhinorrhea RESP: Denies SOB, cough CARD: Denies chest pain, palpitations GI: +b/l flank pain Denies N / V / D, abdominal pain, bloody stool, inability to tolerate PO : +suprapubic pain, dysuria, frequency NEURO: Denies numbness, tingling, weakness MSK: Denies back pain SKIN: Denies rashes *Physical Exam - Vital Signs Last Vital Signs Temp Pulse Resp BP Pulse Ox 98.4 F 88 18 145/80 99 02/25/20 19:04 02/25/20 19:04 02/25/20 19:04 02/25/20 19:04 02/25/20 19:04 - Physical Exam 02/26/20 06:26 GEN: Well appearing, NAD, comfortable. AAOx3. HEENT: NC/AT, EOMI, PERRL. No facial asymmetry. Normal voice. Supple neck w/ FROM. CV: S1/S2, RRR, no m/r/g LUNG: CTAB, no wheezes, crackles, rales, rhonchi. GI: Soft, ndnt, +BS, no guarding, no rebound. No masses. +CVAT on the left; mild on right. MSK: No obvious deformities of all extremities. SKIN: Warm, dry, no rashes appreciated. PSYCH: Odd affect, slightly anxious. NEURO: Moving all extremities well. ambulates w/ normal gait. ED Treatment Course - LABORATORY CBC & Chemistry Diagram: 02/25/20 20:10 02/25/20 20:10 Medical Decision Making - Medical Decision Making 02/26/20 06:26 54F c/o 7 days dysuria, frequency, foul smelling urine. likely UTI, pyelo, or renal stone - cbc, cmp - UA, UC - Spiral CT 02/26/20 00:12 IMPRESSION: 1. Bilateral nephrolithiasis with no evidence of obstructive uropathy. 2. Mild left-sided hydronephrosis and hydroureter without obvious obstruction. 3. Hepatomegaly small right lobe cyst. 4. No acute pathology within the abdomen or pelvis. Please see above discussion. joanne Hawley (urology) - aware, admit, npo, renal US 02/26/20 02:25 Endorsed to hospitalist team for admission EKG 01:50 HR 72 Normal axis and intervals, NSR, no TWI, no ARPAN/D Discharge - Discharge Information Problems reviewed: Yes Clinical Impression/Diagnosis: Hydronephrosis, UTI (urinary tract infection) Condition: Stable - Admission Yes - Follow up/Referral - Patient Discharge Instructions - Post Discharge Activity
[2020-02-25] MEDS ORDERED: SODIUM CHLORIDE 0.9% 500 ML INFUS.BAG IV ONE (19:53)
[2020-02-25] MEDS ORDERED: ACETAMINOPHEN 1000 MG/100 ML VIAL (NON FORMULARY) IVPB ONE (19:53)
[2020-02-25] MEDS ORDERED: ACETAMINOPHEN INJECTION 100 ML IVPB ONE (19:57)
--- NOTE | 2020-02-25 20:29 | PDOC ---
Documentation entered by Gabriel Roy SCRIBE, acting as scribe for Aleida Jarquin MD. Aleida Jarquin MD: This documentation has been prepared by the bertramibe, Gabriel Roy SCRIBE, under my direction and personally reviewed by me in its entirety. I confirm that the documentation accurately reflects all work, treatment, procedures, and medical decision making performed by me. Attending Attestation - Resident Resident Name: WilbertKenrick - ED Attending Attestation I have performed the following: I have examined & evaluated the patient, The case was reviewed & discussed with the resident, I agree w/resident's findings & plan, Exceptions are as noted - HPI HPI: 02/25/20 20:06 The patient is a 54 year old female with a significant past medical history of asthma, hypokalemia, kidney stones, multiple UTI's, recent admission for pyelonephritis, separate admission for an infected stone, has a L ureteral stent, anxiety, and depression who presents to the ED for evaluation of dysuria and frequency that began one week ago.The patient also endorses flank and suprapubic pain that began one week ago. The patient denies chest, cough, and shortness of breath. Denies fever, chills, nausea, vomiting, and/or any GI symptoms. Denies any other symptoms. PCP: Kelivn Farmer MD Allergies: polyethylene glycol, latex, lidocaine, procaine HCl, polyurethane, orange, paprika, peanut, shrimp PSH: Hysterectomy for ovarian cancer; right oophorectomy Social Hx: Denies smoking, drinking, or other substance usage - Physicial Exam PE: GENERAL: Awake, alert, and fully oriented, in no acute distress. Well-appearing. HEAD: No signs of trauma EYES: PERRLA, EOMI, sclera anicteric, conjunctiva clear ENT: Auricles normal inspection, hearing grossly normal, nares patent, oropharynx clear without exudates. Moist mucosa NECK: Normal ROM, supple, no lymphadenopathy, JVD, or masses LUNGS: Breath sounds equal, clear to auscultation bilaterally. No wheezes, and no crackles HEART: Regular rate and rhythm, normal S1 and S2, no murmurs, rubs or gallops ABDOMEN: Soft, nontender, normoactive bowel sounds. No guarding, no rebound. No masses. No CVAT. EXTREMITIES: Normal range of motion, no edema. No clubbing or cyanosis. No cords, erythema, or tenderness NEUROLOGICAL: Cranial nerves II through XII grossly intact. Normal speech, normal gait SKIN: Warm, Dry, normal turgor, no rashes or lesions noted. - Medical Decision Making 02/25/20 20:33 Pt with history of complicated UTIs, infected stones, admission for sepsis. She is well-appearing with stable vitals at present. Will obtain UA/UCx, spiral CT. 02/26/20 00:05 Urology returned call. Recommended admission in light of her extensive prior history with UTI/sepsis. She is well-appearing at present, however, noted to have UTI with non-obstructing kidney stones. Discharge - Discharge Information Problems reviewed: Yes Clinical Impression/Diagnosis: Hydronephrosis Qualifiers: Hydronephrosis type: other Qualified Code(s): N13.39 - Other hydronephrosis UTI (urinary tract infection) Qualifiers: Urinary tract infection type: acute cystitis Hematuria presence: without hematuria Qualified Code(s): N30.00 - Acute cystitis without hematuria Condition: Stable - Follow up/Referral - Patient Discharge Instructions - Post Discharge Activity
[2020-02-25 20:38] LABS: BASO % 0.6 % (0-2.0); EOS % 1.9 % (0-4.5); HEMATOCRIT 35.1 % (32.4-45.2); HEMOGLOBIN 11.8 GM/dL (10.7-15.3); LYMPH % 22.3 % (8-40); MCH 27.9 pg (25.7-33.7); MCHC 33.7 g/dl (32.0-36.0); MEAN CELL VOLUME 82.9 fl (80-96); MEAN PLT VOLUME 7.6 fl (7.5-11.1); MONO % 8.1 % (3.8-10.2); NEUT % 67.1 % (42.8-82.8); PLATELET COUNT 224 K/MM3 (134-434); RBC 4.24 M/mm3 (3.60-5.2); RDW 14.6 % (11.6-15.6); WHITE BLOOD COUNT 8.7 K/mm3 (4.0-10.0)
[2020-02-25 20:43] LABS: EPI CELLS 10 /uL (0-25.1); HYALINE CASTS 1 /uL (0-3.1); PH,URINE 5.5 (5.0-8.0); URINE APPEARANCE CLEAR; URINE BACTERIA 1336 /uL (0-1359); URINE BILIRUBIN NEGATIVE (NEGATIVE); URINE COLOR YELLOW; URINE GLUCOSE (UA) NEGATIVE (NEGATIVE); URINE KETONE NEGATIVE (NEGATIVE); URINE LEUK ESTERASE 2+ (NEGATIVE); URINE NITRITE NEGATIVE (NEGATIVE); URINE PROTEIN NEGATIVE (NEGATIVE); URINE RBC 12 /uL (0-23.9); URINE UROBILINOGEN 0.2 mg/dL (0.2-1.0); URINE WBC 192 /uL (0-25.8)
[2020-02-25 21:09] LABS: ALBUMIN 3.7 g/dl (3.4-5.0); BILIRUBIN,TOTAL 0.2 mg/dL (0.2-1); BLOOD UREA NITROGEN 19.3 mg/dL (7-18); CALCIUM 8.6 mg/dL (8.5-10.1); CREATININE 0.9 mg/dL (0.55-1.3); POTASSIUM 5.6 mmol/L (3.5-5.1); TOT PROT 6.8 g/dl (6.4-8.2)
--- NOTE | 2020-02-26 00:29 | PN ---
Teaching Attending Note Name of Resident: Brandi Honeycutt ATTENDING PHYSICIAN STATEMENT I saw and evaluated the patient. I reviewed the resident's note and discussed the case with the resident. I agree with the resident's findings and plan as documented. SUBJECTIVE: Patient is a 54 year old woman with a PMH of Asthma, Hysterectomy, Right oophorectomy (for ovarian cancer), Anxiety, Depression, SVT, Hypokalemia, Kidney stones, Multiple UTI's, Left ureteral stent and recent admissions for Pyelonephritis/infected stone presents to the ER for evaluation of dysuria and frequency that began one week ago. The patient also has associated suprapubic pain that began one week ago. Patient denies chest pain, shortness of breath, headache, palpitations, dizziness, fever, chills, nausea, vomiting, diarrhea, constipation, melena, hematochezia or hematuria. Denies alcohol, tobacco or illicit drug use. No sick contacts or recent travels. Family history HTN in sister; melanoma and breast cancer in mother and lung cancer in father. OBJECTIVE: Alert Vital Signs Period Temp Pulse Resp BP Sys/Gifford Pulse Ox Last 24 Hr 98.0 F-98.4 F 78-88 16-18 124-145/61-80 98-100 HEENT: No Jaundice, eye redness or discharge, PERRLA, EOMI. Normocephalic, atraumatic. External ears are normal and hearing is grossly intact. No nasal discharge. Neck: Supple, nontender. No palpable adenopathy or thyromegaly. No JVD Chest: Good effort. Clear to auscultation and percussion. Heart: Regular. No S3, rub or murmur Abdomen: Not distended, soft, suprapubic tenderness and no HSM. No rebound or guarding. Normal bowel sounds. Ext: Peripheral pulses intact. No leg edema. Skin: Warm and dry. No petechiae, rash or ecchymosis. Neuro: Alert. Oriented x3. CN 2-12 grossly intact. Sensation grossly intact in all four extremities and DTR are symmetric. Psych: Appropriate mood and affect. Good insight. Home Medications Medication Instructions Recorded Diphenhydramine HCl [Benadryl 25 mg PO HS 06/06/17 Capsule -] Albuterol Sulfate Inhaler - 1 - 2 inh PO QID PRN 02/28/19 [Ventolin HFA Inhaler -] Potassium Chloride [K-Dur -] 40 meq PO DAILY #28 tablet.er 03/14/19 Acetaminophen [Tylenol 500 mg PO PRN PRN 05/10/19 .Extra-Strength -] Albuterol 0.083% Nebulizer Maddie 1 amp NEB DAILY PRN 05/10/19 [Ventolin 0.083% Nebulizer Soln -] Famotidine [Pepcid] 20 mg PO BID 05/10/19 Ibuprofen 600 mg PO PRN PRN 05/10/19 Lactobacillus Acidophilus [Bacid -] 1 tab PO HS 11 Days #11 tab 05/12/19 Sulfamethoxazole/Trimethoprim 1 tab PO BID 11 Days #22 tablet 05/12/19 [Bactrim Ds -] Levofloxacin [Levaquin] 750 mg PO DAILY #5 tablet 09/10/19 Abnormal Lab Results 02/25/20 02/25/20 20:10 20:10 Potassium 5.6 H Anion Gap 7 L BUN 19.3 H AST 56 H Ur Specific [place] 1.009 L Urine Blood 1+ H Ur Leukocyte Esterase 2+ H Current Medications Generic Name Dose Route Start Last Admin Trade Name Freq PRN Reason Stop Dose Admin Meropenem 500 mg/ Dextrose 100 mls @ 200 mls/hr 02/26/20 06:00 IVPB Q8H ON LICENSE OF [facility] Sodium Chloride 1,000 mls @ 75 mls/hr 02/26/20 06:15 Normal Saline - IV ASDIR ON LICENSE OF [facility] Ketorolac Tromethamine 15 mg 02/26/20 06:08 Toradol Injection - IVPUSH 03/02/20 06:07 Q6H PRN PAIN LEVEL 6-10 Tamsulosin HCl 0.4 mg 02/26/20 08:30 Flomax - PO DAILY@0830 ON LICENSE OF [facility] ASSESSMENT AND PLAN: 1. UTI/Kidney stones - Spiral CT of abdomen/pelvis without contrast showed - "1. Bilateral nephrolithiasis with no evidence of obstructive uropathy. 2. Mild left-sided hydronephrosis and hydroureter without obvious obstruction. 3. Hepatomegaly small right lobe cyst. 4. 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 Will hold KCL and hydrate with IV NS to enhance K+ excretion. Will treat with IV Meropenem (had Pseudomonas UTI on 03/13/19), IV Ketorolac PRN, IV NS, Flomax, get PT/INR, strain her urine, keep her NPO, consult Urology and refer to Nephrology for stone disease risk factor evaluation. History of "hypokalemia" suggests possible renal tubular acidosis which may predispose her to kidney stones. Will benefit from potassium citrate rather than potassium chloride to prevent kidney stones. EKG is pending. Viral testing for COVID-19 ordered and patient placed on airborne, droplet and contact isolation. 2. Obesity Counseled on the risks associated with obesity. Will provide patient all the necessary assistance, counseling and positive reinforcement to facilitate weight loss. Consult mobile service rv technician. 3. DVT prophylaxis - SCD; will avoid heparin for now in case she needs a urologic procedure. 4. Advance directives - Full code
[2020-02-26] MEDS ORDERED: MEROPENEM 500 MG in DEXTROSE 5%-WATER 100 ML IVPB SCH ×2 (06:00→07:15)
[2020-02-26] MEDS ORDERED: KETOROLAC TROMETHAMINE 15 MG/ML VIAL IVPUSH PRN (06:08)
--- NOTE | 2020-02-26 06:15 | HP ---
CHIEF COMPLAINT: Dysuria for one week and 4-5 days of flank pain with suprabubic tenderness PCP: Dr. Kelvin Hansen HISTORY OF PRESENT ILLNESS: 54yo F with PMHx of asthma, depression, anxiety, ovarian carcinoma s/p R oophorectomy, long standing history of nephrolithiasis, pyelonephritis, and admission last year February for sepsis 2/2 to an infected stone s/p temporary L stent placement presenting with dysuria, urinary frequency, bilateral flank pain and suprapubic tenderness. She said that her UTI symptoms started one week ago, where she noted malodorous urine that progressed to urinary frequency and dysuria. A few days later, she then also noticed bilateral flank pain. She describes the pain as "squeezing" and intermittent. She also complains of recent increased hair loss and weight gain. Patient denied any associated symptoms including headache, dizziness, SOB, CP, generalized weakness, cold intolerance. 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 Home: lives with son and son's good friend Allergies patient gets swelling, SOB, hives when exposed to following substances: polyethylene glycol Allergy (Severe, Verified 02/25/20 19:07) Difficulty Breathing swelling latex Allergy (Mild, Verified 02/25/20 19:07) lidocaine Allergy (Verified 02/25/20 19:07) orange Allergy (Verified 02/25/20 19:07) paprika Allergy (Verified 02/25/20 19:07) peanut Allergy (Verified 02/25/20 19:07) Difficulty Breathing procaine HCl [From Novocain] Allergy (Verified 02/25/20 19:07) POLYURETHANE Allergy (Intermediate, Uncoded 02/25/20 19:07) Swelling shrimp Allergy (Intermediate, Uncoded 02/25/20 19:07) Hives HOME MEDICATIONS: Home Medications Medication Instructions Recorded Diphenhydramine HCl [Benadryl 25 mg PO HS 06/06/17 Capsule -] Albuterol Sulfate Inhaler - 1 - 2 inh PO QID PRN 02/28/19 [Ventolin HFA Inhaler -] Potassium Chloride [K-Dur -] 40 meq PO DAILY #28 tablet.er 03/14/19 Acetaminophen [Tylenol 500 mg PO PRN PRN 05/10/19 .Extra-Strength -] Albuterol 0.083% Nebulizer Maddie 1 amp NEB DAILY PRN 05/10/19 [Ventolin 0.083% Nebulizer Soln -] Famotidine [Pepcid] 20 mg PO BID 05/10/19 Ibuprofen 600 mg PO PRN PRN 05/10/19 Lactobacillus Acidophilus [Bacid -] 1 tab PO HS 11 Days #11 tab 05/12/19 Sulfamethoxazole/Trimethoprim 1 tab PO BID 11 Days #22 tablet 05/12/19 [Bactrim Ds -] Levofloxacin [Levaquin] 750 mg PO DAILY #5 tablet 09/10/19 REVIEW OF SYSTEMS as stated above PHYSICAL EXAMINATION Vital Signs - 24 hr 02/25/20 02/25/20 02/26/20 19:04 22:43 00:24 Temperature 98.4 F 98.0 F Pulse Rate 88 Pulse Rate [ 78 Left Radial] Respiratory 18 16 Rate Blood Pressure 145/80 Blood Pressure 124/61 [Right Arm] O2 Sat by Pulse 99 98 100 Oximetry (%) 02/26/20 02/26/20 02/26/20 01:10 04:21 04:48 Temperature 98.6 F Pulse Rate 81 Pulse Rate [ 68 Left Radial] Respiratory 15 18 Rate Blood Pressure 152/98 Blood Pressure 156/95 [Right Arm] O2 Sat by Pulse 99 99 99 Oximetry (%) GENERAL: female, appears stated age, overweight, AAOx3, acutely distressed due to ED incidence HEAD: Normal with no signs of trauma, alopecia EYES: PERRL, direct and consensual pupillary reflex intact, extraocular movements intact LUNGS: CTAB HEART: RRR, S1 S2 appreciated ABDOMEN: soft, distended, active BS, no pain or suprapubi tenderness on palpation MUSCULOSKELETAL:CVA tenderness bilaterally but more pronounced on L EXTREMITIES: radial and dorsalis pedis pulses palpable, warm, no peripheral edema NEUROLOGICAL: Cranial nerves II-XII grossly intact. Normal speech PSYCHIATRIC: Cooperative, interactive, hyperverbal and occasionally tangential. Nervous, difficulty focusing. Good eye contact SKIN: Warm to touch and no rashes or lesions noted Laboratory Results - last 24 hr 02/25/20 02/25/20 02/25/20 20:10 20:10 20:10 WBC 8.7 RBC 4.24 Hgb 11.8 Hct 35.1 MCV 82.9 MCH 27.9 MCHC 33.7 RDW 14.6 Plt Count 224 MPV 7.6 Absolute Neuts (auto) 5.8 Neutrophils % 67.1 Lymphocytes % 22.3 Monocytes % 8.1 Eosinophils % 1.9 Basophils % 0.6 Nucleated RBC % 0 Sodium 138 Potassium 5.6 H Chloride 107 Carbon Dioxide 24 Anion Gap 7 L BUN 19.3 H Creatinine 0.9 Est GFR (CKD-EPI)AfAm 82.84 Est GFR (CKD-EPI)NonAf 71.48 Random Glucose 88 Calcium 8.6 Total Bilirubin 0.2 AST 56 H ALT 61 Alkaline Phosphatase 75 Total Protein 6.8 Albumin 3.7 Urine Color Yellow Urine Appearance Clear Urine pH 5.5 Ur Specific [place] 1.009 L Urine Protein Negative Urine Glucose (UA) Negative Urine Ketones Negative Urine Blood 1+ H Urine Nitrite Negative Urine Bilirubin Negative Urine Urobilinogen 0.2 Ur Leukocyte Esterase 2+ H Urine WBC (Auto) 192 Urine RBC (Auto) 12 Urine Casts (Auto) 1 U Epithel Cells (Auto) 10 Urine Bacteria (Auto) 1336 ASSESSMENT/PLAN: 54yo F with PMHx of asthma, depression, anxiety, ovarian carcinoma s/o R oophorectomy, long standing history of nephrolithiasis, pyelonephritis, and admission last year February for sepsis 2/2 to an infected stone s/p temporary L stent placement presenting with dysuria, urinary frequency, bilateral flank pain and suprapubic tenderness. #Hydronephrosis - possibly due to RTA as this could cause both stones and hypokalemia - strain urine for stone analysis - urology consulted - am renal US then re-evaluate, keep patient NPO - nephrology consult - continue flomax - toradol 50Q4 for pain - IV NS 75cc/h #UTI - urine culture - meropenem - ID consult #Hyperkalemia - hold home potassium chloride - monitor of f/u BMP #R liver lobe cyst - GI consult for further imaging vs outpatient f/u #FEN - replete lytes PRN - NS 75cc/h - NPO #PPX - SCDs #Dispo - continue monitoring patient on medSurg Family Medical History Family History: As Documented Visit type - Emergency Visit Emergency Visit: Yes ED Registration Date: 02/26/20 Care time: The patient presented to the Emergency Department on the above date and was hospitalized for further evaluation of their emergent condition. - New Patient This patient is new to me today: Yes Date on this admission: 02/27/20 - Critical Care Critical Care patient: No ATTENDING PHYSICIAN STATEMENT I saw and evaluated the patient. I reviewed the resident's note and discussed the case with the resident. I agree with the resident's findings and plan as documented. SUBJECTIVE: OBJECTIVE: ASSESSMENT AND PLAN:
[2020-02-26] MEDS: SODIUM CHLORIDE 1,000 ML IV SCH (06:46)
[2020-02-26 09:15] LABS: BASO % 0.7 % (0-2.0); HEMATOCRIT 34.5 % (32.4-45.2); HEMOGLOBIN 11.6 GM/dL (10.7-15.3); LYMPH % 31.5 % (8-40); MCH 28.2 pg (25.7-33.7); MCHC 33.5 g/dl (32.0-36.0); MEAN PLT VOLUME 7.3 fl (7.5-11.1); MONO % 8.4 % (3.8-10.2); NEUT % 56.4 % (42.8-82.8); PLATELET COUNT 202 K/MM3 (134-434); RBC 4.11 M/mm3 (3.60-5.2); RDW 14.3 % (11.6-15.6); WHITE BLOOD COUNT 4.8 K/mm3 (4.0-10.0)
[2020-02-26 09:20] LABS: INR 0.94 (0.83-1.09); PROTHROMBIN TIME (PATIENT) 11.1 SEC (9.7-13.0)
[2020-02-26] MEDS ORDERED: MEROPENEM 500 MG VIAL (RESTRICTED TO ID) IVPB ONE (09:34)
[2020-02-26] MEDS ORDERED: DEXTROSE 5%-WATER 100 ML IVPB ONE (09:34)
[2020-02-26] MEDS: TAMSULOSIN HCL 0.4 MG CAP PO SCH (09:59)
[2020-02-26 11:10] LABS: ALBUMIN 3.8 g/dl (3.4-5.0); BILIRUBIN,TOTAL 0.3 mg/dL (0.2-1); BLOOD UREA NITROGEN 14.3 mg/dL (7-18); CALCIUM 8.6 mg/dL (8.5-10.1); CREATININE 0.6 mg/dL (0.55-1.3); POTASSIUM 3.5 mmol/L (3.5-5.1); TOT PROT 6.8 g/dl (6.4-8.2)
--- NOTE | 2020-02-26 11:33 | CON.GU ---
Consult Consult Specialty:: UROLOGY CONSULT DICTATED Reason for Consultation:: REC. NEPHROLITHIASIS, LEFT HYDRO, H/O OF REC. SEPSIS - History of Present Illness Chief Complaint: LT. FLANK PAIN, DYSURIA, FREQ. History of Present Illness: LONGE H/O OF NEPHROLITHIASIS AND REC. UROSEPSIS - History Source History Provided By: Patient Limitations to Obtaining History: No Limitations (ANXIETY) - Past Medical History Cardio/Vascular: Yes: Other (svt) Pulmonary: Yes: Asthma Renal/: Yes: Hematuria, Renal Calculi, UTI, Other (hypokalemia) Reproductive: Yes: Other (S/P MARION) Infectious Disease: Yes: Other (REC. UTI) - Past Surgical History Past Surgical History: Yes: , Hysterectomy, Stent, Tubal Ligation - Alcohol/Substance Use Hx Alcohol Use: No History of Substance Use: reports: None - Smoking History Smoking history: Never smoked Have you smoked in the past 12 months: No Aproximately how many cigarettes per day: 1 - Social History Usual Living Arrangement: With Child ADL: Independent Place of : [facility] History of Recent Travel: No Home Medications - Allergies Allergies/Adverse Reactions: Allergies Allergy/AdvReac Type Severity Reaction Status Date / Time polyethylene glycol Allergy Severe Difficulty Verified 02/25/20 19:07 Breathing latex Allergy Mild Verified 02/25/20 19:07 lidocaine Allergy Verified 02/25/20 19:07 orange Allergy Verified 02/25/20 19:07 paprika Allergy Verified 02/25/20 19:07 peanut Allergy Difficulty Verified 02/25/20 19:07 Breathing procaine HCl [From Novocain] Allergy Verified 02/25/20 19:07 POLYURETHANE Allergy Intermediate Swelling Uncoded 02/25/20 19:07 shrimp Allergy Intermediate Hives Uncoded 02/25/20 19:07 - Home Medications Home Medications: Ambulatory Orders Diphenhydramine HCl [Benadryl Capsule -] 25 mg PO HS 06/06/17 Albuterol Sulfate Inhaler - [Ventolin HFA Inhaler -] 1 - 2 inh PO QID PRN 02/28/19 Potassium Chloride [K-Dur -] 40 meq PO DAILY #28 tablet.er 03/14/19 Acetaminophen [Tylenol .Extra-Strength -] 500 mg PO PRN PRN 05/10/19 Albuterol 0.083% Nebulizer Maddie [Ventolin 0.083% Nebulizer Soln -] 1 amp NEB [place]AN[place] PRN 05/10/19 Famotidine [Pepcid] 20 mg PO BID 05/10/19 Ibuprofen 600 mg PO PRN PRN 05/10/19 Lactobacillus Acidophilus [Bacid -] 1 tab PO HS 11 Days #11 tab 05/12/19 Sulfamethoxazole/Trimethoprim [Bactrim Ds -] 1 tab PO BID 11 Days #22 tablet 05/12/19 Levofloxacin [Levaquin] 750 mg PO DAILY #5 tablet 09/10/19 Physical Exam- Vital Signs: Vital Signs Temperature 98.6 F 02/26/20 04:48 Pulse Rate 81 02/26/20 04:48 Respiratory Rate 18 02/26/20 04:48 Blood Pressure 152/98 02/26/20 04:48 O2 Sat by Pulse Oximetry (%) 99 02/26/20 04:48 Labs: CBC, BMP 02/26/20 08:39 02/26/20 10:12 Assessment/Plan PLAN. RENAL/PELVIC SONO, STRAIN ALL URINE, FLOMAX0.4MG.POSS. LULL WITH JJ STENT IN AM IF STILL SYMPTOMATIC AND THERE IS NO CHANGE IN STONE POSITION.
--- NOTE | 2020-02-26 12:03 | CONS ---
DATE OF CONSULTATION: 02/26/2020 CHIEF COMPLAINT: Patient is a 54-year-old female admitted via the emergency room last night with acute onset of left flank pain radiating to the left lower quadrant and groin. It was colicky in nature and severe. It was also associated with dysuria and frequency. The patient does have a previous history of depression, anxiety, ovarian cancer for which she underwent a right oophorectomy. She has a long history of recurrent nephrolithiasis as well as pyelonephritis. She was admitted last year in February with urosepsis secondary to left kidney stone. At the time, a stent was placed. She states that her infection starts with malodorous urine and progresses to dysuria, frequency, chills, and fever. Patient also complains of increased hair loss and weight gain over the past several months. She denies any chest pain, shortness of breath, cold intolerance. It the emergency room, her potassium was 5.6. The urine was positive for blood cells, leukocyte esterase, and a large amount of bacteria. A CT scan of her abdomen revealed bilateral hydronephrosis, more on the left, with bilateral nephrolithiasis. There was also hepatomegaly secondary to a fatty liver. There was also a right hepatic lobe cyst. She denies any recent travel. She also does have gastroesophageal reflux disease. PAST SURGICAL HISTORY: She has undergone with partial hysterectomy, a , and several years later underwent a total hysterectomy. FAMILY HISTORY: She does have family history of hypertension. Her mother had melanoma as well as breast cancer. The father of metastatic lung cancer. SOCIAL HISTORY: The patient denies ethanol or tobacco use. She works as a nurse's aide. ALLERGIES: Patient claims she is allergic to POLYETHYLENE GLYCOL, LATEX, LIDOCAINE, ORANGES, PAPRIKA, PEANUTS, PROCAINE, AND POLYURETHANE-CONTAINING PRODUCTS. She is also allergic to SHELLFISH. MEDICATIONS: Presently she is on Benadryl, Ventolin, Tylenol p.r.n., and potassium chloride supplements. Patient is also on Pepcid, Motrin, lactobacillus, Bactrim DS. PHYSICAL EXAMINATION: Vital Signs: In the emergency room, her temperature was 98.4, blood pressure 145/80, pulse oximetry 99. General: She appeared to be alert, oriented, in no apparent distress. Her white count is 8.7. Her hemoglobin is 11.81 and hematocrit 35.1. Her BUN was 19.3 and creatinine 0.9. Liver enzymes were normal. Patient does have mild left CVA tenderness. Neck: Supple. There are no masses. Chest: Clear. Abdomen: Soft. IMPRESSION AT PRESENT: A 54-year-old female with history of nephrolithiasis, presents with left hydronephrosis secondary to a stone. Will strain urine, increase p.o. fluids, add Flomax to her medication regimen. Repeat the ultrasound if there is no improvement or progression of the stone. Will recommend a ureteroscopic laser lithotripsy with a stent placement. Patient will also need a full stone workup including a PTH level and a 24-hour urine for calcium oxalate, citrate, volume, pH, and phosphorus. Will follow with you. GINETTE WOOD M.D. [id number]
--- NOTE | 2020-02-26 12:18 | PN ---
Physical Exam: SUBJECTIVE: Patient seen and examined at bedside. Endorses dysuria, bilateral flank pain. denies hematuria. Denies subjective fevers, chills, shortness of breath, chest pain, palpitations, abdominal pain, nausea, vomiting. OBJECTIVE: Vital Signs Period Temp Pulse Resp BP Sys/Gifford Pulse Ox Last 24 Hr 98.0 F-98.6 F 68-88 15-18 124-156/61-98 98-100 GENERAL: The patient is awake, alert, and fully oriented, in no acute distress. HEAD: Normocephalic, atraumatic. EYES: PERRL, extraocular movements intact, sclera anicteric, conjunctiva clear. ENT: Oropharynx clear, without erythema or exudates. Moist mucous membranes. NECK: Trachea midline, full range of motion. Supple without lymphadenopathy. LUNGS: Breath sounds equal, clear to auscultation bilaterally. No wheezes, no crackles. No accessory muscle use. HEART: Regular rate and rhythm. S1, S2 without murmur, rub or gallop. ABDOMEN: Soft, nondistended, nontender to light and deep palpation x4 quadrants. No rebound tenderness, no guarding. Normoactive bowel sounds x4 quadrants. BACK: Negative CVA tenderness bilaterally. EXTREMITIES: 2+ radial, dorsalis pedis pulses bilaterally. Warm, well-perfused. No lower extremity edema bilaterally. NEUROLOGICAL: Cranial nerves II through XII grossly intact. Normal speech. No gross focal deficits. PSYCH: Normal mood, normal affect upon my encounter. SKIN: Warm, dry. Abdominal/ pelvic surgical scars, well healed, dry. Laboratory Results - last 24 hr 02/25/20 02/25/20 02/25/20 20:10 20:10 20:10 WBC 8.7 RBC 4.24 Hgb 11.8 Hct 35.1 MCV 82.9 MCH 27.9 MCHC 33.7 RDW 14.6 Plt Count 224 MPV 7.6 Absolute Neuts (auto) 5.8 Neutrophils % 67.1 Lymphocytes % 22.3 Monocytes % 8.1 Eosinophils % 1.9 Basophils % 0.6 Nucleated RBC % 0 PT with INR INR Sodium 138 Potassium 5.6 H Chloride 107 Carbon Dioxide 24 Anion Gap 7 L BUN 19.3 H Creatinine 0.9 Est GFR (CKD-EPI)AfAm 82.84 Est GFR (CKD-EPI)NonAf 71.48 Random Glucose 88 Calcium 8.6 Total Bilirubin 0.2 AST 56 H ALT 61 Alkaline Phosphatase 75 Total Protein 6.8 Albumin 3.7 Urine Color Yellow Urine Appearance Clear Urine pH 5.5 Ur Specific [place] 1.009 L Urine Protein Negative Urine Glucose (UA) Negative Urine Ketones Negative Urine Blood 1+ H Urine Nitrite Negative Urine Bilirubin Negative Urine Urobilinogen 0.2 Ur Leukocyte Esterase 2+ H Urine WBC (Auto) 192 Urine RBC (Auto) 12 Urine Casts (Auto) 1 U Epithel Cells (Auto) 10 Urine Bacteria (Auto) 1336 Blood Type Antibody Screen 02/26/20 02/26/20 02/26/20 08:39 08:39 08:39 WBC 4.8 RBC 4.11 Hgb 11.6 Hct 34.5 MCV 84.0 MCH 28.2 MCHC 33.5 RDW 14.3 Plt Count 202 MPV 7.3 L Absolute Neuts (auto) 2.7 Neutrophils % 56.4 Lymphocytes % 31.5 D Monocytes % 8.4 Eosinophils % 3.0 Basophils % 0.7 Nucleated RBC % 0 PT with INR 11.10 INR 0.94 Sodium Potassium Chloride Carbon Dioxide Anion Gap BUN Creatinine Est GFR (CKD-EPI)AfAm Est GFR (CKD-EPI)NonAf Random Glucose Calcium Total Bilirubin AST ALT Alkaline Phosphatase Total Protein Albumin Urine Color Urine Appearance Urine pH Ur Specific [place] Urine Protein Urine Glucose (UA) Urine Ketones Urine Blood Urine Nitrite Urine Bilirubin Urine Urobilinogen Ur Leukocyte Esterase Urine WBC (Auto) Urine RBC (Auto) Urine Casts (Auto) U Epithel Cells (Auto) Urine Bacteria (Auto) Blood Type A POSITIVE Antibody Screen Negative 02/26/20 10:12 WBC RBC Hgb Hct MCV MCH MCHC RDW Plt Count MPV Absolute Neuts (auto) Neutrophils % Lymphocytes % Monocytes % Eosinophils % Basophils % Nucleated RBC % PT with INR INR Sodium 143 Potassium 3.5 Chloride 109 H Carbon Dioxide 28 Anion Gap 6 L BUN 14.3 Creatinine 0.6 Est GFR (CKD-EPI)AfAm 118.09 Est GFR (CKD-EPI)NonAf 101.89 Random Glucose 83 Calcium 8.6 Total Bilirubin 0.3 AST 20 ALT 51 Alkaline Phosphatase 79 Total Protein 6.8 Albumin 3.8 Urine Color Urine Appearance Urine pH Ur Specific [place] Urine Protein Urine Glucose (UA) Urine Ketones Urine Blood Urine Nitrite Urine Bilirubin Urine Urobilinogen Ur Leukocyte Esterase Urine WBC (Auto) Urine RBC (Auto) Urine Casts (Auto) U Epithel Cells (Auto) Urine Bacteria (Auto) Blood Type Antibody Screen Active Medications Generic Name Dose Route Start Last Admin Trade Name Freq PRN Reason Stop Dose Admin Meropenem 500 mg/ Dextrose 100 mls @ 200 mls/hr 02/26/20 06:00 IVPB Q8H IBETH Sodium Chloride 1,000 mls @ 75 mls/hr 02/26/20 06:15 02/26/20 06:46 Normal Saline - IV 75 mls/hr ASDIR IBETH Administration Meropenem 500 mg/ Dextrose 100 mls @ 200 mls/hr 02/26/20 07:15 02/26/20 10:00 IVPB 02/26/20 23:44 200 mls/hr Q8H IBETH Administration Ketorolac Tromethamine 15 mg 02/26/20 06:08 02/26/20 10:12 Toradol Injection - IVPUSH 03/02/20 06:07 15 mg Q6H PRN Administration PAIN LEVEL 6-10 Tamsulosin HCl 0.4 mg 02/26/20 08:30 02/26/20 09:59 Flomax - PO 0.4 mg DAILY@0830 IBETH Administration ASSESSMENT/PLAN: Patient is a 54 year old female with history of asthma, gastro-esophageal reflux, anxiety, ovarian carcinoma (s/p oopherectomy, hysterectomy), prior nephrolithiasis, hydronephrosis presents with complaint of dysuria, urinry frequency, and bilateral flank pain. Acute complicated UTI, with nephrolithiases, hydrnephrosis -History of Pseudomonas UTI in 2019. Initiated on Meropenem, switched to Zosyn with ID recommendations -CT abdomen pelvis reveals bilateral hydronephrosis without obstructive uropathy, hepatomegaly with small R lobe cyst -UA with 1336 bacteria, 192 RBC, 2+ leukocyte esterase -Obtain renal US -IV normal saline at 75mL/ hour -Follow blood, urine cultures -Tamsulosin 0.4mg PO daily -Urology recommendations appreciated. Will consider lithotripsy, stent placement in AM if remains symptomatic. -infectious disease recommendations (Dr. Smith) appreciated. Hyperkalemia -Noted patient has history of chronic hypokalemia. May be secondary to supplement. -Potassium 3.5 today. KCL reinstated at lower dose: 20meq PO daily. -Follow BMP -Nephrology recommendations (Dr. Alegria) appreciated. History of Asthma -Currently not in exacerbation. Saturating well on room air. No respiratory distress. -Albuterol 1-2 pufs IH Q4 hours PRN for shortness of breath. Hepatomegaly, with small cyst -Incidentally noted on CT scan. Patient will require outpatient GI follow up, FEN -IV normal saline at 75mL/ hour -Hyperkalemia (resolved) -Regular diet. NPO after midnight in anticipation of possible Urology procedure. Prophylaxis -Heparin 5000units subq TID. Hold after midnight. Disposition -Continue care in medical- surgical floor. Visit type - Emergency Visit Emergency Visit: Yes ED Registration Date: 02/26/20 Care time: The patient presented to the Emergency Department on the above date and was hospitalized for further evaluation of their emergent condition. - New Patient This patient is new to me today: Yes Date on this admission: 02/27/20 - Critical Care Critical Care patient: No - Discharge Referral Referred to [facility] Med [facility] No ATTENDING PHYSICIAN STATEMENT I saw and evaluated the patient. I reviewed the resident's note and discussed the case with the resident. I agree with the resident's findings and plan as documented. SUBJECTIVE: OBJECTIVE: ASSESSMENT AND PLAN:
--- NOTE | 2020-02-26 12:55 | PN ---
Progress Note (short form) - Note Progress Note: ID CONSULT DICTATED RECURRENT NEPHROLITHIASIS R/O SEPSIS SECONDARY TO SOURCE OBTAIN BC AWAIT URINE C/S EMPIRIC ZOSYN EVALUATION
--- NOTE | 2020-02-26 13:29 | CONS ---
DATE OF CONSULTATION: DATE OF DICTATION: 02/26/2020 INFECTIOUS DISEASE CONSULTATION HISTORY OF PRESENT ILLNESS: The patient is a 54-year-old female with a longstanding history of nephrolithiasis, now evaluated for recurrent nephrolithiasis and possible sepsis secondary to source. She was admitted to the hospital on February____2019, with a 1-week history of dysuria, urinary frequency, foul-smelling urine, suprapubic and flank pain. She presented to the hospital where she was evaluated. She was found to have flank tenderness on exam as well as pyuria. A urine culture was sent and she was empirically treated with meropenem. The patient has had several episodes of urinary tract infections in the past. Last year her course was complicated by serious urinary tract infection resulting in septic shock and requiring transfer to the intensive care unit. At the present time she appears comfortable. She is afebrile with a normal white blood cell count. A CAT scan of the abdomen and pelvis shows bilateral kidney stones without evidence of obstruction. PAST MEDICAL HISTORY: Positive for nephrolithiasis, history of sepsis secondary to UTI at one point complicated by hypotension requiring pressures, stent placement and ICU transfer. She also has a history of asthma, hypokalemia, recurrent urinary tract infections, pyelonephritis, history of ovarian cancer. PAST SURGICAL HISTORY: Status post oophorectomy and total abdominal hysterectomy, left ureteral stent placement in April (removed in June 2019). ALLERGIES: TO SEVERAL AGENTS INCLUDING POLYETHYLENE GLYCOL, LASIX, LIDOCAINE, POLYURETHANE, PROCAINE. No antibiotic allergies. MEDICATIONS: Include Levaquin, meropenem, Flomax, Tylenol. SOCIAL HISTORY: Resides in the community with family members. Nonsmoker. Nondrinker. LABORATORY DATA: White blood cell count 4.8, hematocrit 34.5, platelet count 202, 56 neutrophils, 31 lymphocytes, 8 monocytes. Creatinine 0.6. Urinalysis 192 white cells. Previous urine cultures positive for Staphylococcus epidermidis, enterobacter, pseudomonas, Escherichia coli. PHYSICAL EXAMINATION: General: She is seated in bed in no acute distress, not acutely toxic appearing. Vital Signs: Temperature 98.6, blood pressure 152/98, pulse 81, regular, respirations 18 per minute. HEENT: Sclerae are anicteric. Cardiac: Heart sounds S1-S2. Lungs: Clear. Abdomen: Soft, nontender. There is left CVA tenderness to palpation. Extremities: Negative for edema. IMPRESSION: 1. Recurrent nephrolithiasis. 2. Rule out sepsis secondary to genitourinary source. RECOMMENDATIONS: Obtain blood cultures. Await urine culture. Empiric Zosyn. Urology evaluation. Thank you for the kind referral. MARCO A CHEW M.D. [id number]
--- NOTE | 2020-02-26 14:48 | PN ---
Teaching Attending Note Name of Resident: Al Sal ATTENDING PHYSICIAN STATEMENT I saw and evaluated the patient. I reviewed the resident's note and discussed the case with the resident. I agree with the resident's findings and plan as documented. SUBJECTIVE: Mild L flank pain and ongoing dysuria. No fever/chills. OBJECTIVE: Afebrile, Hemodynamically Stable. Last Vital Signs Temp Pulse Resp BP Pulse Ox 98.0 F 87 18 102/65 98 02/26/20 14:08 02/26/20 14:08 02/26/20 14:08 02/26/20 14:08 02/26/20 14:08 HEENT - Atraumatic, normocephalic. Heart - S1, S2, RRR Lungs - clear to auscultation Abdomen- Soft, non-tender. Mild L CVA tenderness. Bowel Sounds normal. Extremities - no edema, no calf tenderness. Neuro - AAO x 3. Tone/Power normal. Laboratory Results - last 24 hr 02/25/20 02/25/20 02/25/20 20:10 20:10 20:10 WBC 8.7 RBC 4.24 Hgb 11.8 Hct 35.1 MCV 82.9 MCH 27.9 MCHC 33.7 RDW 14.6 Plt Count 224 MPV 7.6 Absolute Neuts (auto) 5.8 Neutrophils % 67.1 Lymphocytes % 22.3 Monocytes % 8.1 Eosinophils % 1.9 Basophils % 0.6 Nucleated RBC % 0 PT with INR INR Sodium 138 Potassium 5.6 H Chloride 107 Carbon Dioxide 24 Anion Gap 7 L BUN 19.3 H Creatinine 0.9 Est GFR (CKD-EPI)AfAm 82.84 Est GFR (CKD-EPI)NonAf 71.48 Random Glucose 88 Calcium 8.6 Total Bilirubin 0.2 AST 56 H ALT 61 Alkaline Phosphatase 75 Total Protein 6.8 Albumin 3.7 Urine Color Yellow Urine Appearance Clear Urine pH 5.5 Ur Specific [place] 1.009 L Urine Protein Negative Urine Glucose (UA) Negative Urine Ketones Negative Urine Blood 1+ H Urine Nitrite Negative Urine Bilirubin Negative Urine Urobilinogen 0.2 Ur Leukocyte Esterase 2+ H Urine WBC (Auto) 192 Urine RBC (Auto) 12 Urine Casts (Auto) 1 U Epithel Cells (Auto) 10 Urine Bacteria (Auto) 1336 Blood Type Antibody Screen 02/26/20 02/26/20 02/26/20 08:39 08:39 08:39 WBC 4.8 RBC 4.11 Hgb 11.6 Hct 34.5 MCV 84.0 MCH 28.2 MCHC 33.5 RDW 14.3 Plt Count 202 MPV 7.3 L Absolute Neuts (auto) 2.7 Neutrophils % 56.4 Lymphocytes % 31.5 D Monocytes % 8.4 Eosinophils % 3.0 Basophils % 0.7 Nucleated RBC % 0 PT with INR 11.10 INR 0.94 Sodium Potassium Chloride Carbon Dioxide Anion Gap BUN Creatinine Est GFR (CKD-EPI)AfAm Est GFR (CKD-EPI)NonAf Random Glucose Calcium Total Bilirubin AST ALT Alkaline Phosphatase Total Protein Albumin Urine Color Urine Appearance Urine pH Ur Specific [place] Urine Protein Urine Glucose (UA) Urine Ketones Urine Blood Urine Nitrite Urine Bilirubin Urine Urobilinogen Ur Leukocyte Esterase Urine WBC (Auto) Urine RBC (Auto) Urine Casts (Auto) U Epithel Cells (Auto) Urine Bacteria (Auto) Blood Type A POSITIVE Antibody Screen Negative 02/26/20 10:12 WBC RBC Hgb Hct MCV MCH MCHC RDW Plt Count MPV Absolute Neuts (auto) Neutrophils % Lymphocytes % Monocytes % Eosinophils % Basophils % Nucleated RBC % PT with INR INR Sodium 143 Potassium 3.5 Chloride 109 H Carbon Dioxide 28 Anion Gap 6 L BUN 14.3 Creatinine 0.6 Est GFR (CKD-EPI)AfAm 118.09 Est GFR (CKD-EPI)NonAf 101.89 Random Glucose 83 Calcium 8.6 Total Bilirubin 0.3 AST 20 ALT 51 Alkaline Phosphatase 79 Total Protein 6.8 Albumin 3.8 Urine Color Urine Appearance Urine pH Ur Specific [place] Urine Protein Urine Glucose (UA) Urine Ketones Urine Blood Urine Nitrite Urine Bilirubin Urine Urobilinogen Ur Leukocyte Esterase Urine WBC (Auto) Urine RBC (Auto) Urine Casts (Auto) U Epithel Cells (Auto) Urine Bacteria (Auto) Blood Type Antibody Screen Current Medications Generic Name Dose Route Start Last Admin Trade Name Freq PRN Reason Stop Dose Admin Sodium Chloride 1,000 mls @ 75 mls/hr 02/26/20 06:15 02/26/20 06:46 Normal Saline - IV 75 mls/hr ASDIR IBETH Administration Piperacillin Sod/Tazobactam 50 mls @ 100 mls/hr 02/26/20 13:00 Sod 3.375 gm/ Dextrose IVPB Q8H-IV IBETH Protocol Ketorolac Tromethamine 15 mg 02/26/20 06:08 02/26/20 10:12 Toradol Injection - IVPUSH 03/02/20 06:07 15 mg Q6H PRN Administration PAIN LEVEL 6-10 Tamsulosin HCl 0.4 mg 02/26/20 08:30 02/26/20 09:59 Flomax - PO 0.4 mg DAILY@0830 [facility] Administration Home Medications Medication Instructions Recorded Diphenhydramine HCl [Benadryl 25 mg PO HS 06/06/17 Capsule -] Albuterol Sulfate Inhaler - 1 - 2 inh PO QID PRN 02/28/19 [Ventolin HFA Inhaler -] Potassium Chloride [K-Dur -] 40 meq PO DAILY #28 tablet.er 03/14/19 Acetaminophen [Tylenol 500 mg PO PRN PRN 05/10/19 .Extra-Strength -] Albuterol 0.083% Nebulizer Maddie 1 amp NEB DAILY PRN 05/10/19 [Ventolin 0.083% Nebulizer Soln -] Famotidine [Pepcid] 20 mg PO BID 05/10/19 Ibuprofen 600 mg PO PRN PRN 05/10/19 Lactobacillus Acidophilus [Bacid -] 1 tab PO HS 11 Days #11 tab 05/12/19 Sulfamethoxazole/Trimethoprim 1 tab PO BID 11 Days #22 tablet 05/12/19 [Bactrim Ds -] Levofloxacin [Levaquin] 750 mg PO DAILY #5 tablet 09/10/19 ASSESSMENT AND PLAN: 54 year old female with history of Asthma, Ovarian Ca Hx s/p R oophorectomy, s/p Hysterectomy, Anxiety/Depression, Hx SVT, Nephrolithiasis s/p L ureteral stent for recent obstruction/pyelonephritis, presents with dysuria, frequency, L flank discomfort. No fever/chills. 1. UTI with bilateral Nephrolithiasis and mild L Hydronephrosis and Hydroureter Hx Pseudomonal UTI Afebrile, Hemodynamically Stable. IV Meropenem given on admission, changed to IV Zosyn by ID Urine Cx/Blood Cx pending, Renal US pending. Evaluated by Urology - started on Tamsulosin, recommend straining of urine - if symptoms persist, will consider OR in AM for Cystoscopy and JJ stent. IV hydration ongoing. 2. Hepatomegaly, small right lobe cyst, incidental finding on US - GI follow up on discharge. 3. Asthma - Stable, no evidence of acute exacerbation. 4. Hyperkalemia - resolved. DVT Px - Heparin SQ
[2020-02-26] MEDS ORDERED: ACETAMINOPHEN 325 MG TABLET (FP) PO PRN (14:57)
--- NOTE | 2020-02-26 15:14 | CONSULT ---
Consult Consult Specialty:: Nephrology Reason for Consultation:: hyperkalemia - History of Present Illness Chief Complaint: dysuria History of Present Illness: Pt is a 54 year old female with pmhx of asthma, depression anxiety, ovarian cancer, hypokalemia who presents with dysuria. She also complains of urinary frequency and bilateral flank pain. SHe denies chest pain. She denies shortness of breath. She denies palpitations. SHe was found to be hyperkalemic in the ER. She smelled an odor in her urine last week. She does have history of sepsis secondary to UTI in the past. - History Source History Provided By: Patient, Medical Record - Past Medical History Cardio/Vascular: Yes: Other (svt) Pulmonary: Yes: Asthma Renal/: Yes: Hematuria, Renal Calculi, UTI, Other (hypokalemia) Infectious Disease: Yes: Other (REC. UTI) - Past Surgical History Past Surgical History: Yes: , Hysterectomy, Stent, Tubal Ligation - Alcohol/Substance Use Hx Alcohol Use: No History of Substance Use: reports: None - Smoking History Smoking history: Never smoked Have you smoked in the past 12 months: No Aproximately how many cigarettes per day: 1 - Social History Usual Living Arrangement: With Child ADL: Independent History of Recent Travel: No Home Medications - Allergies Allergies/Adverse Reactions: Allergies Allergy/AdvReac Type Severity Reaction Status Date / Time polyethylene glycol Allergy Severe Difficulty Verified 02/25/20 19:07 Breathing latex Allergy Mild Verified 02/25/20 19:07 lidocaine Allergy Verified 02/25/20 19:07 orange Allergy Verified 02/25/20 19:07 paprika Allergy Verified 02/25/20 19:07 peanut Allergy Difficulty Verified 02/25/20 19:07 Breathing procaine HCl [From Novocain] Allergy Verified 02/25/20 19:07 POLYURETHANE Allergy Intermediate Swelling Uncoded 02/25/20 19:07 shrimp Allergy Intermediate Hives Uncoded 02/25/20 19:07 - Home Medications Home Medications: Ambulatory Orders Diphenhydramine HCl [Benadryl Capsule -] 25 mg PO HS 06/06/17 Albuterol Sulfate Inhaler - [Ventolin HFA Inhaler -] 1 - 2 inh PO QID PRN 02/28/19 Potassium Chloride [K-Dur -] 40 meq PO DAILY #28 tablet.er 03/14/19 Acetaminophen [Tylenol .Extra-Strength -] 500 mg PO PRN PRN 05/10/19 Albuterol 0.083% Nebulizer Maddie [Ventolin 0.083% Nebulizer Soln -] 1 amp NEB DAILY PRN 05/10/19 Famotidine [Pepcid] 20 mg PO BID 05/10/19 Ibuprofen 600 mg PO PRN PRN 05/10/19 Lactobacillus Acidophilus [Bacid -] 1 tab PO HS 11 Days #11 tab 05/12/19 Sulfamethoxazole/Trimethoprim [Bactrim Ds -] 1 tab PO BID 11 Days #22 tablet 05/12/19 Levofloxacin [Levaquin] 750 mg PO DAILY #5 tablet 09/10/19 Family Medical History Family History: Denies Review of Systems - Review of Systems Constitutional: reports: No Symptoms Eyes: reports: No Symptoms HENT: reports: No Symptoms Neck: reports: No Symptoms Cardiovascular: reports: No Symptoms Respiratory: reports: No Symptoms Gastrointestinal: reports: No Symptoms Genitourinary: reports: Dysuria, Flank Pain Musculoskeletal: reports: No Symptoms Neurological: reports: No Symptoms Endocrine: reports: No Symptoms Hematology/Lymphatic: reports: No Symptoms Psychiatric: reports: No Symptoms Physical Exam Vital Signs: Vital Signs Temperature 98.0 F 02/26/20 14:08 Pulse Rate 87 02/26/20 14:08 Respiratory Rate 18 02/26/20 14:08 Blood Pressure 102/65 02/26/20 14:08 O2 Sat by Pulse Oximetry (%) 98 02/26/20 14:08 Constitutional: Yes: Calm Eyes: Yes: Conjunctiva Clear HENT: Yes: Atraumatic Neck: Yes: Supple Cardiovascular: Yes: S1, S2 Respiratory: Yes: CTA Bilaterally Gastrointestinal: Yes: Normal Bowel Sounds, Soft Renal/: Yes: WNL. No: CVA Tenderness - Left, CVA Tenderness - Right Musculoskeletal: Yes: WNL Edema: No Neurological: Yes: Oriented Psychiatric: Yes: Oriented Labs: CBC, BMP 02/26/20 08:39 02/26/20 10:12 Imaging - Results Ultrasound: Report Reviewed Problem List - Problems (1) Hyperkalemia Code(s): E87.5 - HYPERKALEMIA (2) UTI (urinary tract infection) Code(s): N39.0 - URINARY TRACT INFECTION, SITE NOT SPECIFIED (3) Flank pain Code(s): R10.9 - UNSPECIFIED ABDOMINAL PAIN Assessment/Plan Current Medications Generic Name Dose Route Start Last Admin Trade Name Freq PRN Reason Stop Dose Admin Acetaminophen 650 mg 02/26/20 14:57 Tylenol - PO Q6H PRN PAIN 1-3 Heparin Sodium (Porcine) 5,000 unit 02/26/20 15:00 Heparin - SQ TID IBETH Sodium Chloride 1,000 mls @ 75 mls/hr 02/26/20 06:15 02/26/20 06:46 Normal Saline - IV 75 mls/hr ASDIR IBETH Administration Piperacillin Sod/Tazobactam 50 mls @ 100 mls/hr 02/26/20 13:00 Sod 3.375 gm/ Dextrose IVPB Q8H-IV IBETH Protocol Tamsulosin HCl 0.4 mg 02/26/20 08:30 02/26/20 09:59 Flomax - PO 0.4 mg DAILY@0830 IBETH Administration Impression 1. hyperkalemia 2. uti 3. renal cyst 4. nephrolithiasis 5. hx of hypokalemia - chronic 6. hx svt 7. asthma 8. dehydration Plan - potassium is lower - resume supplements at lower dose - cont to monitor levels - follow cultures - urology follow up - cont abx - cont fluids Dr Alegria
[2020-02-26] MEDS ORDERED: DEXTROSE 5%-WATER - 50 ML IVPB ONE ×2 (15:17→17:54)
[2020-02-26] MEDS ORDERED: PIPERACILLIN/TAZOBACTAM 3.375 GM VIAL IVPB ONE ×2 (15:17→17:54)
[2020-02-26] MEDS: PIPERACILLIN/TAZOB 3.375 GM 3.375 GM in DEXTROSE 5%-WATER - 50 ML IVPB SCH ×2 (15:31→18:26)
[2020-02-26] MEDS: HEPARIN NA (PORCINE) 5,000 UNITS/ML 1ML VIAL SQ SCH ×2 (15:32→21:43)
[2020-02-26] MEDS ORDERED: ALBUTEROL SO4 HFA INHALER IH PRN (15:40)
[2020-02-26] MEDS: POTASSIUM CHLORIDE TABS 20 MEQ TABLET.ER (FP) PO SCH (17:05)
[2020-02-26] MEDS ORDERED: POTASSIUM CHLORIDE TABS 20 MEQ TABLET.ER (FP) PO ONE (18:00)
[2020-02-26] MEDS: FAMOTIDINE 10 MG TABLET PO SCH (19:55)
[2020-02-27] MEDS ORDERED: PIPERACILLIN/TAZOBACTAM 3.375 GM VIAL IVPB ONE ×3 (00:42→17:27)
[2020-02-27] MEDS ORDERED: DEXTROSE 5%-WATER - 50 ML IVPB ONE ×3 (00:42→17:27)
[2020-02-27] MEDS: PIPERACILLIN/TAZOB 3.375 GM 3.375 GM in DEXTROSE 5%-WATER - 50 ML IVPB SCH ×3 (01:05→17:33)
[2020-02-27 08:13] LABS: HEMATOCRIT 33.6 % (32.4-45.2); HEMOGLOBIN 11.3 GM/dL (10.7-15.3); MCHC 33.5 g/dl (32.0-36.0); MEAN CELL VOLUME 83.7 fl (80-96); MEAN PLT VOLUME 7.4 fl (7.5-11.1); PLATELET COUNT 202 K/MM3 (134-434); RBC 4.01 M/mm3 (3.60-5.2); RDW 13.9 % (11.6-15.6); WHITE BLOOD COUNT 5.6 K/mm3 (4.0-10.0)
[2020-02-27 08:41] LABS: ALBUMIN 3.2 g/dl (3.4-5.0); BILIRUBIN,TOTAL 0.3 mg/dL (0.2-1); BLOOD UREA NITROGEN 13.7 mg/dL (7-18); CALCIUM 8.4 mg/dL (8.5-10.1); CREATININE 0.6 mg/dL (0.55-1.3); MAGNESIUM 2.4 mg/dL (1.8-2.4); POTASSIUM 3.6 mmol/L (3.5-5.1); TOT PROT 5.7 g/dl (6.4-8.2)
[2020-02-27] MEDS: SODIUM CHLORIDE 1,000 ML IV SCH (09:26)
[2020-02-27] MEDS: TAMSULOSIN HCL 0.4 MG CAP PO SCH (09:26)
[2020-02-27] MEDS: FAMOTIDINE 10 MG TABLET PO SCH (09:26)
[2020-02-27] MEDS: POTASSIUM CHLORIDE TABS 20 MEQ TABLET.ER (FP) PO SCH (09:26)
--- NOTE | 2020-02-27 13:41 | OP ---
Operative Note - Note: Operative Date: 02/27/20 Pre-Operative Diagnosis: jose. nephrolithiasis and lt. ureteral stone, lt. hydronephrosis and hematuria Operation: cysto, lull with jj stent Findings: left upper ureteral stone with proximal hydronephrosis Post-Operative Diagnosis: Same as Pre-op Surgeon: Alyssa Hawley Anesthesia: General Specimens Removed: urine, stones Estimated Blood Loss (mls): 0 Instrument used (Debridements only): 0 Drains & Tubes with Location: 22cm 6f lt.jj stent Drains, Volume Out (mls): 0 Blood Volume Replaced (mls): 0 Fluid Volume Replaced (mls): 0 Operative Report Dictated: Yes
[2020-02-27] MEDS ORDERED: POTASSIUM CHLORIDE TABS 20 MEQ TABLET.ER (FP) PO ONE ×2 (14:17→16:40)
--- NOTE | 2020-02-27 14:20 | PN ---
Progress Note, Physician History of Present Illness: Pt seen and examined at bedside. She is awake and alert. She denies fevers or chills. - Current Medication List Current Medications: Active Medications Acetaminophen (Tylenol -) 650 mg PO Q6H PRN PRN Reason: PAIN 1-3 Albuterol Sulfate (Ventolin Hfa Inhaler -) 2 puff IH Q4H PRN PRN Reason: SHORT OF BREATH/WHEEZING Famotidine (Acid Supervisor Sheet Manufacturing) 10 mg PO DAILY [facility] Last Admin: 02/27/20 09:26 Dose: 10 mg Documented by: Heparin Sodium (Porcine) (Heparin -) 5,000 unit SQ TID [facility] Last Admin: 02/26/20 21:43 Dose: 5,000 unit Documented by: Sodium Chloride (Normal Saline -) 1,000 mls @ 75 mls/hr IV ASDIR [facility] Last Admin: 02/27/20 09:26 Dose: Not Given Documented by: Piperacillin Sod/Tazobactam (Sod 3.375 gm/ Dextrose) 50 mls @ 100 mls/hr IVPB Q8H-IV [facility]; Protocol Last Admin: 02/27/20 09:26 Dose: 100 mls/hr Documented by: Potassium Chloride (K-Dur -) 20 meq PO ONCE ONE Stop: 02/27/20 14:18 Tamsulosin HCl (Flomax -) 0.4 mg PO DAILY@0830 [facility] Last Admin: 02/27/20 09:26 Dose: 0.4 mg Documented by: - Objective Vital Signs: Vital Signs Temperature 98.4 F 02/27/20 13:21 Pulse Rate 82 02/27/20 13:21 Respiratory Rate 18 02/27/20 13:21 Blood Pressure 150/87 02/27/20 13:21 O2 Sat by Pulse Oximetry (%) 96 02/27/20 10:00 Constitutional: Yes: Calm Eyes: Yes: Conjunctiva Clear HENT: Yes: Atraumatic Neck: Yes: Supple Cardiovascular: Yes: S1, S2 Respiratory: Yes: CTA Bilaterally Gastrointestinal: Yes: Soft Genitourinary: Yes: WNL Musculoskeletal: Yes: WNL Edema: No Neurological: Yes: Oriented Psychiatric: Yes: Oriented Labs: CBC, BMP 02/27/20 07:29 02/27/20 07:29 INR, PTT INR 0.94 (0.83-1.09) 02/26/20 08:39 Problem List - Problems (1) Hyperkalemia Code(s): E87.5 - HYPERKALEMIA (2) UTI (urinary tract infection) Code(s): N39.0 - URINARY TRACT INFECTION, SITE NOT SPECIFIED Qualifiers: Urinary tract infection type: acute cystitis Hematuria presence: without hematuria Qualified Code(s): N30.00 - Acute cystitis without hematuria (3) Flank pain Code(s): R10.9 - UNSPECIFIED ABDOMINAL PAIN Assessment/Plan Current Medications Generic Name Dose Route Start Last Admin Trade Name Freq PRN Reason Stop Dose Admin Acetaminophen 650 mg 02/26/20 14:57 Tylenol - PO Q6H PRN PAIN 1-3 Albuterol Sulfate 2 puff 02/26/20 15:40 Ventolin Hfa Inhaler - IH Q4H PRN SHORT OF BREATH/WHEEZING Famotidine 10 mg 02/26/20 19:00 02/27/20 09:26 Acid Supervisor Sheet Manufacturing PO 10 mg DAILY [facility] Administration Heparin Sodium (Porcine) 5,000 unit 02/26/20 15:00 02/26/20 21:43 Heparin - SQ 5,000 unit TID [facility] Administration Sodium Chloride 1,000 mls @ 75 mls/hr 02/26/20 06:15 02/27/20 09:26 Normal Saline - IV Not Given ASDIR [facility] Piperacillin Sod/Tazobactam 50 mls @ 100 mls/hr 02/26/20 13:00 02/27/20 09:26 Sod 3.375 gm/ Dextrose IVPB 100 mls/hr Q8H-IV [facility] Administration Protocol Potassium Chloride 20 meq 02/27/20 14:17 K-Dur - PO 02/27/20 14:18 ONCE ONE Potassium Chloride 40 meq 02/27/20 14:17 K-Dur - PO DAILY [facility] Tamsulosin HCl 0.4 mg 02/26/20 08:30 02/27/20 09:26 Flomax - PO 0.4 mg DAILY@0830 [facility] Administration Impression 1. hyperkalemia 2. uti 3. renal cyst 4. nephrolithiasis 5. hx of hypokalemia - chronic 6. hx svt 7. asthma 8. dehydration Plan - increase potassium supplements to 40 meq - urology follow up - repeat labs in am - fluids while npo - cont abx Dr Alegria
--- NOTE | 2020-02-27 14:49 | PN ---
Progress Note (short form) - Note Progress Note: SUBJECTIVE: Feels well, post-op, using incentive spirometer. No fever/chills. OBJECTIVE: Afebrile, Hemodynamically Stable. Last Vital Signs Temp Pulse Resp BP Pulse Ox 98.4 F 82 18 150/87 96 02/27/20 13:21 02/27/20 13:21 02/27/20 13:21 02/27/20 13:21 02/27/20 10:00 Heart - S1, S2, RRR Lungs - clear to auscultation Abdomen- Soft, non-tender. Bowel Sounds normal. Extremities - no edema, no calf tenderness. Neuro - AAO x 3. Tone/Power normal. Laboratory Results - last 24 hr 02/27/20 02/27/20 07:29 07:29 WBC 5.6 RBC 4.01 Hgb 11.3 Hct 33.6 MCV 83.7 MCH 28.0 MCHC 33.5 RDW 13.9 Plt Count 202 MPV 7.4 L Sodium 144 Potassium 3.6 Chloride 112 H Carbon Dioxide 24 Anion Gap 8 BUN 13.7 Creatinine 0.6 Est GFR (CKD-EPI)AfAm 118.09 Est GFR (CKD-EPI)NonAf 101.89 Random Glucose 91 Calcium 8.4 L Phosphorus 4.0 Magnesium 2.4 Total Bilirubin 0.3 AST 16 ALT 35 Alkaline Phosphatase 63 Total Protein 5.7 L Albumin 3.2 L Current Medications Generic Name Dose Route Start Last Admin Trade Name Freq PRN Reason Stop Dose Admin Acetaminophen 650 mg 02/26/20 14:57 Tylenol - PO Q6H PRN PAIN 1-3 Albuterol Sulfate 2 puff 02/26/20 15:40 Ventolin Hfa Inhaler - IH Q4H PRN SHORT OF BREATH/WHEEZING Famotidine 10 mg 02/26/20 19:00 02/27/20 09:26 Acid Creel Clerk PO 10 mg DAILY [facility] Administration Heparin Sodium (Porcine) 5,000 unit 02/26/20 15:00 02/26/20 21:43 Heparin - SQ 5,000 unit TID [facility] Administration Sodium Chloride 1,000 mls @ 75 mls/hr 02/26/20 06:15 02/27/20 09:26 Normal Saline - IV Not Given ASDIR [facility] Piperacillin Sod/Tazobactam 50 mls @ 100 mls/hr 02/26/20 13:00 02/27/20 09:26 Sod 3.375 gm/ Dextrose IVPB 100 mls/hr Q8H-IV [facility] Administration Protocol Potassium Chloride 40 meq 02/28/20 10:00 K-Dur - PO DAILY [facility] Tamsulosin HCl 0.4 mg 02/26/20 08:30 02/27/20 09:26 Flomax - PO 0.4 mg DAILY@0830 [facility] Administration Home Medications Medication Instructions Recorded Diphenhydramine HCl [Benadryl 25 mg PO HS 06/06/17 Capsule -] Albuterol Sulfate Inhaler - 1 - 2 inh PO QID PRN 02/28/19 [Ventolin HFA Inhaler -] Potassium Chloride [K-Dur -] 40 meq PO DAILY #28 tablet.er 03/14/19 Albuterol 0.083% Nebulizer Maddie 1 amp NEB DAILY PRN 05/10/19 [Ventolin 0.083% Nebulizer Soln -] Famotidine [Pepcid] 20 mg PO BID 05/10/19 ASSESSMENT AND PLAN: 54 year old female with history of Asthma, Ovarian Ca Hx s/p R oophorectomy, s/p Hysterectomy, Anxiety/Depression, Hx SVT, Nephrolithiasis s/p L ureteral stent for recent obstruction/pyelonephritis, presents with dysuria, frequency, L flank discomfort. No fever/chills. 1. UTI with bilateral Nephrolithiasis and mild L Hydronephrosis/Hydroureter Immediately post-op s/p Cystoscopy and L JJ Stent Urine Cx - Proteus/Blood Cx negative Afebrile, Hemodynamically Stable. IV Meropenem given on admission, changed to IV Zosyn by ID. Further Abx as per ID. Continue IV hydration 2. Hepatomegaly, small right lobe cyst, incidental finding on US - GI follow up on discharge. 3. Asthma - Stable, no evidence of acute exacerbation. DVT Px - Heparin SQ Visit type - Emergency Visit Emergency Visit: Yes ED Registration Date: 02/26/20 Care time: The patient presented to the Emergency Department on the above date and was hospitalized for further evaluation of their emergent condition. - New Patient This patient is new to me today: No - Critical Care Critical Care patient: No - Discharge Referral Referred to [facility] No
[2020-02-27] MEDS ORDERED: ONDANSETRON 4 MG/2 ML VIAL IVPUSH PRN ×2 (15:10→16:40)
[2020-02-27] MEDS ORDERED: LACTATED RINGERS SOLUTION 1,000 ML IV SCH ×2 (15:15→16:40)
[2020-02-27] MEDS ORDERED: PROPOFOL 20 ML ONE ×2 (15:23→15:37)
[2020-02-27] MEDS ORDERED: MIDAZOLAM HCL 2 MG/2 ML SINGLE DOSE VIAL ONE (15:23)
[2020-02-27] MEDS ORDERED: ceFAZolin SODIUM 1 GM VIAL ONE (15:43)
[2020-02-27] MEDS ORDERED: ceFAZolin SODIUM 1 GM VIAL IVPB ONE (15:45)
[2020-02-27] MEDS ORDERED: DEXAMETHASONE SOD PHOSPHATE 4 MG/1 ML VIAL ONE (15:51)
[2020-02-27] MEDS ORDERED: ePHEDrine SULFATE 50 MG/1 ML AMPULE ONE (16:02)
[2020-02-27] MEDS ORDERED: ACETAMINOPHEN INJECTION 100 ML IVPB ONE (16:34)
[2020-02-27] MEDS ORDERED: ALBUTEROL SO4 HFA INHALER IH PRN (16:40)
[2020-02-27] MEDS ORDERED: SODIUM CHLORIDE 1,000 ML IV SCH (16:40)
[2020-02-27] MEDS ORDERED: ACETAMINOPHEN 325 MG TABLET (FP) PO PRN (16:40)
[2020-02-27] MEDS ORDERED: ACETAMINOPHEN 1000 MG/100 ML VIAL (NON FORMULARY) IVPB ONE (16:56)
[2020-02-27] MEDS ORDERED: KETOROLAC TROMETHAMINE 15 MG/ML VIAL IVPUSH ONE (18:20)
--- NOTE | 2020-02-27 18:27 | EKG ---
Test Reason : Blood Pressure : / mmHG Vent. Rate : 072 BPM Atrial Rate : 072 BPM P-R Int : 152 ms QRS Dur : 092 ms QT Int : 402 ms P-R-T Axes : 058 040 031 degrees QTc Int : 440 ms NORMAL SINUS RHYTHM WITH SINUS ARRHYTHMIA NORMAL ECG WHEN COMPARED WITH ECG OF 10-MAY-2019 08:18, NO SIGNIFICANT CHANGE WAS FOUND Confirmed by MD AGUILAR MOYSES ([id number]) on 02/27/2020 6:27:07 PM Referred By: Confirmed By:AGUSTÍN AGUILAR MD
--- NOTE | 2020-02-27 18:48 | OP ---
DATE OF OPERATION: 02/27/2020 PREOPERATIVE DIAGNOSIS: Left hydronephrosis, urosepsis, bilateral nephrolithiasis. POSTOPERATIVE DIAGNOSIS: Left hydronephrosis, urosepsis, bilateral nephrolithiasis. OPERATIVE PROCEDURE: Cystourethroscopy, left retrograde pyelogram, left ureteroscopy with stone retrieval, placement of a left JJ stent. ANESTHESIA: General. Under above-stated anesthesia, patient was prepped and draped in the usual sterile manner. She was placed in the dorsal lithotomy position. Cystoscopy revealed squamous metaplasia of the trigone. No lesions were noted. No calculi were seen. Ureteral orifices were within normal limits, with efflux of clear urine from the right, none was seen from the left. A Flexi-Tip catheter was placed into the left ureteral orifice, and 5 mL of contrast was injected. This revealed a filling defect in the left midureter with proximal hydroureteronephrosis. A Glidewire was left in the left renal unit. Ureteroscopy was performed in the usual fashion. A stone was seen in the lower portion of the midureter. This was small enough to grab with a basket and pull out atraumatically. Continuation of the ureteroscopy revealed a normal renal pelvis and upper ureter. Therefore, a 22-cm JJ stent was left in placed. X-rays confirmed good position of the stent. The bladder was emptied. The scope was removed. The patient tolerated the procedure well. She returned to the recovery room in good condition. Williams [id number]
[2020-02-27] MEDS: HEPARIN NA (PORCINE) 5,000 UNITS/ML 1ML VIAL SQ SCH ×2 (20:30→21:03)
[2020-02-27] MEDS ORDERED: PT OWN MED DRAWER 7, Y5N ONE ×2 (20:47→20:51)
[2020-02-28] MEDS ORDERED: PIPERACILLIN/TAZOBACTAM 3.375 GM VIAL IVPB ONE (01:10)
[2020-02-28] MEDS ORDERED: DEXTROSE 5%-WATER - 50 ML IVPB ONE (01:10)
[2020-02-28] MEDS: PIPERACILLIN/TAZOB 3.375 GM 3.375 GM in DEXTROSE 5%-WATER - 50 ML IVPB SCH ×2 (01:14→11:40)
[2020-02-28] MEDS ORDERED: ACETAMINOPHEN 1000 MG/100 ML VIAL (NON FORMULARY) IVPB PRN (04:12)
[2020-02-28] MEDS ORDERED: KETOROLAC TROMETHAMINE 30 MG/1 ML VIAL IM ONE (05:00)
[2020-02-28] MEDS: HEPARIN NA (PORCINE) 5,000 UNITS/ML 1ML VIAL SQ SCH ×2 (05:12→14:53)
[2020-02-28] MEDS ORDERED: KETOROLAC TROMETHAMINE 15 MG/ML VIAL IVPUSH ONE (05:15)
[2020-02-28 06:50] VITALS: TEMP 97.1
[2020-02-28] MEDS ORDERED: TAMSULOSIN HCL 0.4 MG CAP PO SCH (08:30)
[2020-02-28] MEDS ORDERED: FAMOTIDINE 10 MG TABLET PO SCH (10:00)
[2020-02-28] MEDS ORDERED: POTASSIUM CHLORIDE TABS 20 MEQ TABLET.ER (FP) PO SCH ×2 (10:00)
--- NOTE | 2020-02-28 11:55 | PN ---
Progress Note (short form) - Note Progress Note: Anesthesia Post op Pt seen and examined S:Alert and awake c/o of persitent swelling of left hand O: Vital Signs Temperature 97.1 F L 02/28/20 06:00 Pulse Rate 86 02/28/20 06:00 Respiratory Rate 02/28/20 06:00 Blood Pressure 137/90 02/28/20 06:00 O2 Sat by Pulse Oximetry (%) 98 02/28/20 06:00 CBC, BMP 02/27/20 07:29 02/27/20 07:29 A/P Current Active Problems Hydronephrosis (Acute) Hyperkalemia (Acute) UTI (urinary tract infection) (Acute) s/p cysto with a stent Doing well post op. Observe left hand swelling probably from IV infiltration Alexander Monge MD
[2020-02-28 12:11] LABS: BASO % 0.4 % (0-2.0); EOS % 0.1 % (0-4.5); HEMATOCRIT 36.9 % (32.4-45.2); HEMOGLOBIN 12.6 GM/dL (10.7-15.3); LYMPH % 20.5 % (8-40); MCH 28.4 pg (25.7-33.7); MEAN CELL VOLUME 83.6 fl (80-96); MEAN PLT VOLUME 7.2 fl (7.5-11.1); MONO % 9.2 % (3.8-10.2); NEUT % 69.8 % (42.8-82.8); PLATELET COUNT 275 K/MM3 (134-434); RBC 4.42 M/mm3 (3.60-5.2); RDW 14.1 % (11.6-15.6); WHITE BLOOD COUNT 9.7 K/mm3 (4.0-10.0)
[2020-02-28 12:18] VITALS: BP 124/68; PULSE 85
--- NOTE | 2020-02-28 12:19 | PN ---
Progress Note, Physician History of Present Illness: S/P CYSTO AWAKE, ALERT SEATED IN BED NO C/O FLANK PAIN OR DYSURIA AFEBRILE WBC WNL BC (-) URINE C/S PROTEUS - Current Medication List Current Medications: Active Medications Acetaminophen (Ofirmev Injection -) 1,000 mg IVPB Q6H PRN PRN Reason: PAIN LEVEL 6-10 Stop: 02/29/20 04:13 Albuterol Sulfate (Ventolin Hfa Inhaler -) 2 puff IH Q4H PRN PRN Reason: SHORT OF BREATH/WHEEZING Famotidine (Acid Field Administrative Assistant) 10 mg PO DAILY [facility] Last Admin: 02/28/20 11:44 Dose: 10 mg Documented by: Heparin Sodium (Porcine) (Heparin -) 5,000 unit SQ TID [facility] Last Admin: 02/28/20 05:12 Dose: 5,000 unit Documented by: Lactated Ringer's (Lactated Ringers Solution) 1,000 mls @ 75 mls/hr IV ASDIR [facility] Last Admin: 02/27/20 16:58 Dose: 0 mls Documented by: Sodium Chloride (Normal Saline -) 1,000 mls @ 75 mls/hr IV ASDIR [facility] Last Admin: 02/27/20 17:19 Dose: Not Given Documented by: Piperacillin Sod/Tazobactam (Sod 3.375 gm/ Dextrose) 50 mls @ 100 mls/hr IVPB Q8H-IV IB[facility]; Protocol Last Admin: 02/28/20 11:40 Dose: Not Given Documented by: Potassium Chloride (K-Dur -) 40 meq PO DAILY [facility] Last Admin: 02/28/20 11:43 Dose: 40 meq Documented by: Tamsulosin HCl (Flomax -) 0.4 mg PO DAILY@0830 [facility] Last Admin: 02/28/20 08:18 Dose: 0.4 mg Documented by: - Objective Vital Signs: Vital Signs Temperature 97.1 F L 02/28/20 06:00 Pulse Rate 86 02/28/20 06:00 Respiratory Rate 02/28/20 06:00 Blood Pressure 137/90 02/28/20 06:00 O2 Sat by Pulse Oximetry (%) 98 02/28/20 06:00 Constitutional: Yes: No Distress Cardiovascular: Yes: Regular Rate and Rhythm, S1, S2 Respiratory: Yes: CTA Bilaterally Genitourinary: No: CVA Tenderness - Left, CVA Tenderness - Right Edema: No Labs: CBC, BMP 02/28/20 11:16 INR, PTT INR 0.94 (0.83-1.09) 02/26/20 08:39 Assessment/Plan NEPHROLITHIASIS S/P CYSTO/ STONE EXTRACTION UTI PROTEUS SUBSTITUTE AUGMENTIN 875MG PO BID X 7D OUTPATIENT UROLOGY F/U
[2020-02-28 13:17] LABS: BLOOD UREA NITROGEN 12.5 mg/dL (7-18); CALCIUM 9.3 mg/dL (8.5-10.1); CREATININE 0.6 mg/dL (0.55-1.3); POTASSIUM 3.4 mmol/L (3.5-5.1)
[2020-02-28] MEDS ORDERED: PT OWN MED DRAWER 7, Y5N ONE (14:23)
--- NOTE | 2020-02-28 14:26 | PN ---
Progress Note, Physician History of Present Illness: Pt seen and examined at bedside. She is awake and alert. - Current Medication List Current Medications: Active Medications Acetaminophen (Ofirmev Injection -) 1,000 mg IVPB Q6H PRN PRN Reason: PAIN LEVEL 6-10 Stop: 02/29/20 04:13 Albuterol Sulfate (Ventolin Hfa Inhaler -) 2 puff IH Q4H PRN PRN Reason: SHORT OF BREATH/WHEEZING Amoxicillin/Clavulanate Potassium (Augmentin - 875mg Tablet) 1 tab PO BID@0800,1730 [facility] Famotidine (Acid Director Public Service) 10 mg PO DAILY [facility] Last Admin: 02/28/20 11:44 Dose: 10 mg Documented by: Heparin Sodium (Porcine) (Heparin -) 5,000 unit SQ TID [facility] Last Admin: 02/28/20 05:12 Dose: 5,000 unit Documented by: Lactated Ringer's (Lactated Ringers Solution) 1,000 mls @ 75 mls/hr IV ASDIR [facility] Last Admin: 02/27/20 16:58 Dose: 0 mls Documented by: Sodium Chloride (Normal Saline -) 1,000 mls @ 75 mls/hr IV ASDIR [facility] Last Admin: 02/27/20 17:19 Dose: Not Given Documented by: Potassium Chloride (K-Dur -) 40 meq PO DAILY [facility] Last Admin: 02/28/20 11:43 Dose: 40 meq Documented by: Tamsulosin HCl (Flomax -) 0.4 mg PO DAILY@0830 [facility] Last Admin: 02/28/20 08:18 Dose: 0.4 mg Documented by: - Objective Vital Signs: Vital Signs Temperature 97.1 F L 02/28/20 06:00 Pulse Rate 85 02/28/20 10:00 Respiratory Rate 20 02/28/20 10:00 Blood Pressure 124/68 02/28/20 10:00 O2 Sat by Pulse Oximetry (%) 98 02/28/20 10:00 Constitutional: Yes: Calm Eyes: Yes: Conjunctiva Clear HENT: Yes: Atraumatic Neck: Yes: Supple Cardiovascular: Yes: S1, S2 Respiratory: Yes: CTA Bilaterally Gastrointestinal: Yes: Soft Genitourinary: Yes: WNL Musculoskeletal: Yes: WNL Edema: No Integumentary: Yes: WNL Neurological: Yes: Oriented Psychiatric: Yes: Oriented Labs: CBC, BMP 02/28/20 11:16 02/28/20 11:16 INR, PTT INR 0.94 (0.83-1.09) 02/26/20 08:39 Problem List - Problems (1) Hyperkalemia Code(s): E87.5 - HYPERKALEMIA (2) UTI (urinary tract infection) Code(s): N39.0 - URINARY TRACT INFECTION, SITE NOT SPECIFIED Qualifiers: Urinary tract infection type: acute cystitis Hematuria presence: without hematuria Qualified Code(s): N30.00 - Acute cystitis without hematuria (3) Flank pain Code(s): R10.9 - UNSPECIFIED ABDOMINAL PAIN Assessment/Plan Current Medications Generic Name Dose Route Start Last Admin Trade Name Freq PRN Reason Stop Dose Admin Acetaminophen 1,000 mg 02/28/20 04:12 Ofirmev Injection - IVPB 02/29/20 04:13 Q6H PRN PAIN LEVEL 6-10 Albuterol Sulfate 2 puff 02/27/20 16:40 Ventolin Hfa Inhaler - IH Q4H PRN SHORT OF BREATH/WHEEZING Amoxicillin/Clavulanate Potassium 1 tab 02/28/20 17:30 Augmentin - 875mg Tablet PO BID@0800,1730 [facility] Famotidine 10 mg 02/28/20 10:00 02/28/20 11:44 Acid Director Public Service PO 10 mg DAILY [facility] Administration Heparin Sodium (Porcine) 5,000 unit 02/27/20 22:00 02/28/20 05:12 Heparin - SQ 5,000 unit TID [facility] Administration Lactated Ringer's 1,000 mls @ 75 mls/hr 02/27/20 16:40 02/27/20 16:58 Lactated Ringers Solution IV 0 mls ASDIR [facility] Administration Sodium Chloride 1,000 mls @ 75 mls/hr 02/27/20 16:40 02/27/20 17:19 Normal Saline - IV Not Given ASDIR [facility] Potassium Chloride 40 meq 02/28/20 10:00 02/28/20 11:43 K-Dur - PO 40 meq DAILY [facility] Administration Tamsulosin HCl 0.4 mg 02/28/20 08:30 02/28/20 08:18 Flomax - PO 0.4 mg DAILY@0830 [facility] Administration Impression 1. hyperkalemia 2. uti 3. renal cyst 4. nephrolithiasis 5. hx of hypokalemia - chronic 6. hx svt 7. asthma 8. dehydration Plan - replace potassium - can d/c fluids - monitor lytes - pt need outpt follow up Dr Alegria
--- NOTE | 2020-02-28 14:49 | PN ---
Teaching Attending Note Name of Resident: Kadeem Emerson ATTENDING PHYSICIAN STATEMENT I saw and evaluated the patient. I reviewed the resident's note and discussed the case with the resident. I agree with the resident's findings and plan as documented. SUBJECTIVE: Feels well, post-op, slightly anxious. No fever/chills. No dysuria/hematuria. No flank/suprapubic pain. OBJECTIVE: Afebrile, Hemodynamically Stable. Anxious+ Last Vital Signs Temp Pulse Resp BP Pulse Ox 97.1 F L 85 20 124/68 98 02/28/20 06:00 02/28/20 10:00 02/28/20 10:00 02/28/20 10:00 02/28/20 10:00 Heart - S1, S2, RRR Lungs - clear to auscultation Abdomen - Soft, non-tender. Bowel Sounds normal. Extremities - no edema, no calf tenderness. Neuro - AAO x 3. Tone/Power normal. Laboratory Results - last 24 hr 02/28/20 02/28/20 11:16 11:16 WBC 9.7 RBC 4.42 Hgb 12.6 Hct 36.9 MCV 83.6 MCH 28.4 MCHC 34.0 RDW 14.1 Plt Count 275 D MPV 7.2 L Absolute Neuts (auto) 6.8 Neutrophils % 69.8 D Lymphocytes % 20.5 D Monocytes % 9.2 Eosinophils % 0.1 D Basophils % 0.4 Nucleated RBC % 0 Sodium 140 Potassium 3.4 L Chloride 105 Carbon Dioxide 25 Anion Gap 9 BUN 12.5 Creatinine 0.6 Est GFR (CKD-EPI)AfAm 118.09 Est GFR (CKD-EPI)NonAf 101.89 Random Glucose 70 L Calcium 9.3 Current Medications Generic Name Dose Route Start Last Admin Trade Name Freq PRN Reason Stop Dose Admin Acetaminophen 1,000 mg 02/28/20 04:12 Ofirmev Injection - IVPB 02/29/20 04:13 Q6H PRN PAIN LEVEL 6-10 Albuterol Sulfate 2 puff 02/27/20 16:40 Ventolin Hfa Inhaler - IH Q4H PRN SHORT OF BREATH/WHEEZING Amoxicillin/Clavulanate Potassium 1 tab 02/28/20 17:30 Augmentin - 875mg Tablet PO BID@0800,1730 [facility] Famotidine 10 mg 02/28/20 10:00 02/28/20 11:44 Acid Battery Container Tester Aluminum PO 10 mg DAILY [facility] Administration Heparin Sodium (Porcine) 5,000 unit 02/27/20 22:00 02/28/20 05:12 Heparin - SQ 5,000 unit TID [facility] Administration Lactated Ringer's 1,000 mls @ 75 mls/hr 02/27/20 16:40 02/27/20 16:58 Lactated Ringers Solution IV 0 mls ASDIR [facility] Administration Sodium Chloride 1,000 mls @ 75 mls/hr 02/27/20 16:40 02/27/20 17:19 Normal Saline - IV Not Given ASD[facility] Potassium Chloride 40 meq 02/28/20 10:00 02/28/20 11:43 K-Dur - PO 40 meq DAILY [facility] Administration Tamsulosin HCl 0.4 mg 02/28/20 08:30 02/28/20 08:18 Flomax - PO 0.4 mg DAILY@0830 [facility] Administration ASSESSMENT AND PLAN: 54 year old female with history of Asthma, Ovarian Ca Hx s/p R oophorectomy, s/p Hysterectomy, Anxiety/Depression, Hx SVT, Nephrolithiasis s/p L ureteral stent for recent obstruction/pyelonephritis, presents with dysuria, frequency, L flank discomfort. No fever/chills. 1. UTI with bilateral Nephrolithiasis and mild L Hydronephrosis/Hydroureter POD 1 s/p Cystoscopy and L JJ Stent Urine Cx - Proteus/Blood Cx negative Afebrile, Hemodynamically Stable, medicaly optimized for discharge. IV Meropenem given on admission, changed to IV Zosyn by ID - for awitch to Augmentin on discharge as per Urology and ID recommendations. 2. Hepatomegaly, small right lobe cyst, incidental finding on US - GI follow up on discharge. 3. Asthma - Stable, no evidence of acute exacerbation. Medically stable for discharge with Urology follow up.
[2020-02-28] MEDS ORDERED: AMOX TR/POT CLAV 875MG/125MG TABLETS (FP) PO SCH (17:30)
--- NOTE | 2020-02-28 17:48 | DS ---
Physical Exam: SUBJECTIVE: No overnight events. Patient seen and examined. Denies CVA/abd pain. OBJECTIVE: Vital Signs Period Temp Pulse Resp BP Sys/Gifford Pulse Ox Last 24 Hr 97.1 F 85-86 20-20 124-137/68-90 98-100 PHYSICAL EXAM GENERAL: The patient is awake, alert, and fully oriented, in no acute distress. HEENT: Normal with no signs of trauma. moist mucous membranes. LUNGS: Breath sounds equal, clear to auscultation bilaterally, no wheezes, no crackles, no accessory muscle use. HEART: Regular rate and rhythm, S1, S2 without murmur, rub or gallop. ABDOMEN: Soft, nontender, nondistended, normoactive bowel sounds, no guarding no CVA tenderness EXTREMITIES: 2+ pulses, warm, well-perfused, no edema. NEUROLOGICAL: Normal speech, gait not observed. PSYCH: anxious, tangential speech SKIN: Warm, dry, normal turgor, no rashes or lesions noted. LABS Laboratory Results - last 24 hr 02/28/20 02/28/20 11:16 11:16 WBC 9.7 RBC 4.42 Hgb 12.6 Hct 36.9 MCV 83.6 MCH 28.4 MCHC 34.0 RDW 14.1 Plt Count 275 D MPV 7.2 L Absolute Neuts (auto) 6.8 Neutrophils % 69.8 D Lymphocytes % 20.5 D Monocytes % 9.2 Eosinophils % 0.1 D Basophils % 0.4 Nucleated RBC % 0 Sodium 140 Potassium 3.4 L Chloride 105 Carbon Dioxide 25 Anion Gap 9 BUN 12.5 Creatinine 0.6 Est GFR (CKD-EPI)AfAm 118.09 Est GFR (CKD-EPI)NonAf 101.89 Random Glucose 70 L Calcium 9.3 HOSPITAL COURSE: 54yo F with PMHx of asthma, depression, anxiety, ovarian carcinoma s/p R oophorectomy, long standing history of nephrolithiasis, pyelonephritis, p/w ur inary frequency, b/l flank pain, suprapubic tenderness, and dysuria. Admitted for pyleonephritis. Was found to have K+ of 5.6. UA showed 2+ leukocyte esterase, [address] abdomen/pelvis showed bilateral hydronephrosis without obstructive uropathy, hepatomegaly with small R lobe cyst. s/p levaquin in ED. S/p mereopnem on admission, and later changed to zosyn. Pt underwent Cystoscopy and L JJ Stent. Discussed with urology; recommended augmentin 875 BID X 10 days for discharge. Pt's symptoms improved. Pt is stable for discharge. Date of Admission:02/26/20 Date of Discharge: 02/28/20 Minutes to complete discharge: 50 Discharge Summary Problems reviewed: Yes Reason For Visit: URINARY TRACT INFECTION, HYDRONEPHROSIS Current Active Problems Hydronephrosis (Acute) Hyperkalemia (Acute) UTI (urinary tract infection) (Acute) Condition: Stable - Instructions Diet, Activity, Other Instructions: You came to the hospital for flank pain, pain with urination, and increased urination. Analysis of your urine and your symptoms indicated a kidney infection. The infection was managed with IV antibiotics. Imaging of your abdomen showed stones in both your kidneys, and swelling of your Left kidney and ureter. You underwent a cystoscopy and a ureteral stent insertion to relieve the obstruction. You will be discharged Augmentin for 10 additional days as per Dr. Hawley. You will follow up at his office. Imaging of your abdomen noted an enlarged liver with small cyst in the liver. Please follow-up with the banking consultant regarding your liver. Please see your primary care physician in 1 week get repeat bloodwork for a Basic Metabolic Panel (BMP) to re-evaluate your potassium level. Your symptoms improved. You are stable for discharge. MEDICATIONS Please START taking antibiotic named augmentin 875-125 mg tablet twice a day for 10 days. Please START taking lactobacillus three times a day for 2 weeks. Please DECREASE your daily potassium chloride from 40 eq to 20 meq daily until you see your primary care physician for repeat bloodwork to re-evaluate your potassium levels and until you speak to your primary care physician about your potassium chloride. Please take your other home medications as prescribed. FOLLOW-UP Please follow-up with urologist, Dr. Hawley, for follow-up of your cystoscopy and stent insertion. Please follow-up with banking consultant, Dr. Hoang, regarding your enlarged liver and liver cyst. Please follow-up with your primary care physician, Dr. Hansen, to discuss your recent hospitalization and for general health maintenance. Please follow-up with your primary care physician for repeat bloodwork in 1 week for a Basic Metabolic Panel (BMP) to re-evaluate your potassium level and a repeat EKG. Please call 911 or come directly to the emergency department if you experience worsening symptoms, chest pain, shortness of breath, loss of alertness/awareness, loss of function, chest pain, unusual headache, vision change, difficulty speaking, numbness, tingling, unusual bleeding, or any alarming symptoms Referrals: Kelvin Hansen MD [Primary Care Provider] - (admitted for pyelonephritis. underwent cystoscopy and stent insertion -EKG showed Normal sinus rhythm with sinus arrythmia. Please repeat EKG -Potassium found to be elevated on admission, and later found to be low. Please repeat BMP for K+ levels ) Yaron Hoang DO [Staff Physician] - (CT showed hepatomegaly and liver cyst ) Alyssa Hawley MD [Staff Physician] - (s/p cystoscopy and stent insertion ) Disposition: HOME - Home Medications Comprehensive Discharge Medication List: Ambulatory Orders Diphenhydramine HCl [Benadryl Capsule -] 25 mg PO HS 06/06/17 Albuterol Sulfate Inhaler - [Ventolin HFA Inhaler -] 1 - 2 inh PO QID PRN 02/28/19 Albuterol 0.083% Nebulizer Maddie [Ventolin 0.083% Nebulizer Soln -] 1 amp NEB DAILY PRN 05/10/19 Famotidine [Pepcid] 20 mg PO BID 05/10/19 Amox-Tr/K Cl [Augmentin 875-125mg Tablet -] 1 tab PO BID@0800,1730 10 Days #20 tablet 02/28/20 Lactobacillus Acidophilus [Bacid -] 1 each PO TID 14 Days #42 capsule 02/28/20 Potassium Chloride [K-Dur -] 20 meq PO DAILY tablet.er 02/28/20 This patient is new to me today: No Emergency Visit: Yes ED Registration Date: 02/26/20 Care time: The patient presented to the Emergency Department on the above date and was hospitalized for further evaluation of their emergent condition. Critical Care patient: No - Discharge Referral Referred to [facility] No ATTENDING PHYSICIAN STATEMENT I saw and evaluated the patient. I reviewed the resident's note and discussed the case with the resident. I agree with the resident's findings and plan as documented. SUBJECTIVE: OBJECTIVE: ASSESSMENT AND PLAN:
[2020-03-13 14:28] LABS: CA OXALATE MONOHYDR. 5; CALCIUM CARBONATE 20
== END 2020-02-28 22:03 | disposition home or self-care (01) | DRG 446 ==
LOC: JER 19:01 → JERBED 02-26 00:13 → J6S 02-26 04:19
PROVIDERS: ADMIT Internal Medicine
PROC: BT1FZZZ Fluoroscopy of Left Kidney, Ureter and Bladder (ICD-10-PCS; 2020-02-27)
PROC: 0TC78ZZ Extirpation of Matter from Left Ureter, Via Natural or Artificial Opening Endoscopic (ICD-10-PCS; principal; 2020-02-27 08:56)
PROC: 0T778DZ Dilation of Left Ureter with Intraluminal Device, Via Natural or Artificial Opening Endoscopic (ICD-10-PCS; 2020-02-27 08:56)
DX: N13.6 Pyonephrosis (principal); R16.0 Hepatomegaly, not elsewhere classified; J45.909 Unspecified asthma, uncomplicated; E66.9 Obesity, unspecified; B96.4 Proteus (mirabilis) (morganii) as the cause of diseases classified elsewhere; Z68.34 Body mass index [BMI] 34.0-34.9, adult; E87.5 Hyperkalemia; E86.0 Dehydration; N28.1 Cyst of kidney, acquired
CPT/HCPCS: 36415; 74176-TC; 76000-TC-FY; 76775-TC; 80048; 80053; 81003; 82360; 83735; 83970; 84100; 85025; 85027; 85610; 86850; 86900; 86901; 87040; 87086; 87186; 88300-TC; 93005; 93010; 94760; 99285-25; J0131; J1644; U0003

== ENCOUNTER 2020-03-24 13:21 | Inpatient (IN) | payer OTHER ==
[2020-03-24 13:27] VITALS: BMI 32.5
[2020-03-24] MEDS ORDERED: ACETAMINOPHEN 1000 MG/100 ML VIAL (NON FORMULARY) IVPB ONE (14:50)
[2020-03-24] MEDS ORDERED: ACETAMINOPHEN INJECTION 100 ML IVPB ONE (15:11)
--- NOTE | 2020-03-24 15:17 | PDOC ---
History of Present Illness - General Chief Complaint: Hematuria Stated Complaint: BLOOD IN URINE Time Seen by Provider: 03/24/20 14:22 History Source: Patient Exam Limitations: No Limitations - History of Present Illness Travel History: No Initial Comments: 03/24/20 15:11 54y F hx of freqneunt UTIs/kidneys tones presents with left flank pain and dysuria for several days. Patient had a stent placed approximately 2 weeks ago she was having intermittent pain and discomfort in the left flank that she attributed to her stent, however the pain has been getting worse and she has been having sympoms of dysuria/hematuria associated with nausea without any fever/chills, cp, sob, diarrhea, melena. pt notes the pain is similar to her previous infections so she came for evalution : Dr. Hawley Past History - Medical History Allergies/Adverse Reactions: Allergies Allergy/AdvReac Type Severity Reaction Status Date / Time polyethylene glycol Allergy Severe Difficulty Verified 03/24/20 13:27 Breathing latex Allergy Mild Verified 03/24/20 13:27 lidocaine Allergy Verified 03/24/20 13:27 orange Allergy Verified 03/24/20 13:27 paprika Allergy Verified 03/24/20 13:27 peanut Allergy Difficulty Verified 03/24/20 13:27 Breathing procaine HCl [From Novocain] Allergy Verified 03/24/20 13:27 shellfish derived Allergy Hives Verified 03/24/20 13:27 apple cider vinegar Allergy Intermediate Difficulty Uncoded 03/24/20 13:27 Breathing POLYURETHANE Allergy Intermediate Swelling Uncoded 03/24/20 13:27 shrimp Allergy Intermediate Hives Uncoded 03/24/20 13:27 apple Allergy Uncoded 03/26/20 08:45 cheese Allergy Uncoded 03/26/20 08:45 jalapeno Allergy Uncoded 03/26/20 08:45 lactose Allergy Uncoded 03/26/20 08:45 Home Medications: Ambulatory Orders Diphenhydramine HCl [Benadryl Capsule -] 25 mg PO HS 06/06/17 Albuterol Sulfate Inhaler - [Ventolin HFA Inhaler -] 1 - 2 inh PO QID PRN 02/28/19 Albuterol 0.083% Nebulizer Maddie [Ventolin 0.083% Nebulizer Soln -] 1 amp NEB DAILY PRN 10/28/19 Famotidine [Pepcid] 20 mg PO BID 05/10/19 Amox-Tr/K Cl [Augmentin 875-125mg Tablet -] 1 tab PO BID@0800,1730 10 Days #20 tablet 02/28/20 Lactobacillus Acidophilus [Bacid -] 1 each PO TID 14 Days #42 capsule 02/28/20 Potassium Chloride [K-Dur -] 20 meq PO DAILY tablet.er 02/28/20 Anemia: (HYPOKALEMIA) Asthma: Yes Cardiac Disorders: Yes (SVT) COPD: No DVT: No GI Disorders: Yes (ulcer) Disorders: Yes (right ovarian cyst status post surgery, status post hysterectomy, still has) HTN: No Kidney Stones: (Kidney problems.) Psychiatric Problems: Yes (anxiety, depression) - Surgical History Abdominal Surgery: Yes (hysterectomy and right oophorectomy) - Reproductive History Is Patient Now?: No - Immunization History Td Vaccination: No TDAP Vaccination: No Immunization Up to Date: Yes - Psycho-Social/Smoking History Smoking Status: No Smoking History: Never smoked Years of Tobacco Use: 0 Have you smoked in the past 12 months: No Number of Cigarettes Smoked Daily: 1 Cigars Per Day: 0 Information on smoking cessation initiated: Yes 'Breaking Loose' booklet given: 05/10/19 - Substance Abuse Hx (Audit-C & DAST Scrn) How often the patient has a drink containing alcohol: Never Score: In Men: 4 or > Positive; In Women: 3 or > Positive: 0 Screen Result (Pos requires Nsg. Audit-10AR): Negative In the last yr the pt used illegal drug/Rx for NonMed reason: No Score: Yes response is considered Positive: 0 Screen Result (Positive result requires Nsg. DAST-10): Negative Abd/GI Specific PMHX - Complaint Specific PMHX GERD: No GI Ulcer Disease: No Review of Systems - Review of Systems Able to Perform ROS?: Yes Comments:: 03/24/20 15:17 Constitutional - no reported Fever, Chills, HEENT: no reported vision changes, sore throat Respiratory: no reported cough, sob, hemoptysis Cardiac: no reported chest pain, palpitations, light headedness, leg swelling Abd/GI: +L flank pain no reported abd pain, nausea, vomiting, blood per rectum, melena, diarrhea : +hematuria, dysuria no reported frequency, discharge Musculskelatal - no reported back pain, joint swelling skin - no reported bruising, erythema, rash neurological: no reported headache, numbness, focal weakness, tingling, ataxia, hematologic: no reported easy bruising, easy bleeding *Physical Exam - Vital Signs Last Vital Signs Temp Pulse Resp BP Pulse Ox 99 F 94 H 19 137/84 97 03/24/20 13:24 03/24/20 13:24 03/24/20 13:24 03/24/20 13:24 03/24/20 13:24 - Physical Exam 03/24/20 15:17 GENERAL: The patient is awake, alert, and fully oriented, Nontoxic - in no acute distress. HEAD: Normocephalic, atraumatic. EYES: extraocular movements intact, sclera anicteric, conjunctiva clear. ENT: Normal voice, Moist mucous membranes. NECK: Normal range of motion, supple LUNGS: Breath sounds equal, clear to auscultation bilaterally. No wheezes, no rhonchi, no rales. HEART: Regular rate and rhythm, normal S1 and S2 without murmur, rub or gallop. ABDOMEN: Soft, nontender, No guarding, no rebound. Mild left-sided CVA tende rness EXTREMITIES: Normal range of motion, no edema. NEUROLOGICAL: No facial assymetry, Normal speech, PSYCH: Normal mood, normal affect. SKIN: Warm, Dry, normal turgor, ED Treatment Course - LABORATORY CBC & Chemistry Diagram: 03/28/20 06:35 03/28/20 06:35 - RADIOLOGY Radiology Studies Ordered: Category Date Time Status KIDNEY / RENAL US [US] Stat Ultrasound 03/24/20 14:50 Ordered Medical Decision Making - Medical Decision Making 03/24/20 15:18 Concern for possible UTI consider possible Blaise versus obstructive stone, will obtain UA, urine culture, CBC, CMP and kidney ultrasound We will give Tylenol for pain, Discharge - Discharge Information Problems reviewed: Yes Clinical Impression/Diagnosis: Flank pain Hydronephrosis Qualifiers: Hydronephrosis type: unspecified Qualified Code(s): N13.30 - Unspecified hydronephrosis UTI (urinary tract infection) Qualifiers: Urinary tract infection type: site unspecified Hematuria presence: with hematuria Qualified Code(s): N39.0 - Urinary tract infection, site not specified; R31.9 - Hematuria, unspecified Condition: Guarded - Follow up/Referral - Patient Discharge Instructions - Post Discharge Activity
[2020-03-24 15:40] LABS: BASO % 1.5 % (0-2.0); EOS % 1.9 % (0-4.5); HEMATOCRIT 37.4 % (32.4-45.2); HEMOGLOBIN 12.6 GM/dL (10.7-15.3); LYMPH % 22.8 % (8-40); MCH 28.1 pg (25.7-33.7); MCHC 33.7 g/dl (32.0-36.0); MEAN CELL VOLUME 83.4 fl (80-96); MEAN PLT VOLUME 7.4 fl (7.5-11.1); MONO % 6.3 % (3.8-10.2); NEUT % 67.5 % (42.8-82.8); PLATELET COUNT 257 K/MM3 (134-434); RBC 4.48 M/mm3 (3.60-5.2); RDW 14.4 % (11.6-15.6); WHITE BLOOD COUNT 6.9 K/mm3 (4.0-10.0)
[2020-03-24 15:44] LABS: EPI CELLS >36 /uL (0-25.1); HYALINE CASTS 10 /uL (0-3.1); PH,URINE 5.5 (5.0-8.0); URINE APPEARANCE TURBID; URINE BACTERIA 149 /uL (0-1359); URINE BILIRUBIN NEGATIVE (NEGATIVE); URINE COLOR YELLOW; URINE GLUCOSE (UA) NEGATIVE (NEGATIVE); URINE KETONE TRACE (NEGATIVE); URINE LEUK ESTERASE 2+ (NEGATIVE); URINE NITRITE NEGATIVE (NEGATIVE); URINE PROTEIN 3+ (NEGATIVE); URINE WBC 300 /uL (0-25.8)
[2020-03-24 16:16] LABS: BILIRUBIN,TOTAL 0.2 mg/dL (0.2-1); BLOOD UREA NITROGEN 19.8 mg/dL (7-18); CALCIUM 9.1 mg/dL (8.5-10.1); CREATININE 0.6 mg/dL (0.55-1.3); POTASSIUM 4.1 mmol/L (3.5-5.1)
[2020-03-24] MEDS ORDERED: PIPERACILLIN/TAZOB 4.5 GM 4.5 GM in DEXTROSE 5%-WATER 100 ML IVPB ONE (17:24)
[2020-03-24 17:38] LABS: URINE RBC 6607.7 /uL (0-23.9)
[2020-03-24 17:39] LABS: URINE CRYSTALS FEW /hpf
[2020-03-24] MEDS ORDERED: PIPERACILLIN/TAZOB 4.5 GM 4.5 GM/100 ML BAG IVPB ONE (18:22)
--- NOTE | 2020-03-24 18:46 | PDOC ---
*Physical Exam - Vital Signs Last Vital Signs Temp Pulse Resp BP Pulse Ox 99 F 94 H 19 137/84 97 03/24/20 13:24 03/24/20 13:24 03/24/20 13:24 03/24/20 13:24 03/24/20 13:24 ED Treatment Course - LABORATORY CBC & Chemistry Diagram: 03/24/20 15:15 03/24/20 15:15 - ADDITIONAL ORDERS Additional order review: Laboratory Results 03/24/20 03/24/20 15:15 15:15 Sodium 139 Potassium 4.1 Chloride 107 Carbon Dioxide 26 Anion Gap 6 L BUN 19.8 H Creatinine 0.6 Est GFR (CKD-EPI)AfAm 118.09 Est GFR (CKD-EPI)NonAf 101.89 Random Glucose 93 Calcium 9.1 Total Bilirubin 0.2 AST 22 ALT 21 Alkaline Phosphatase 83 Total Protein 7.0 Albumin 4.0 Urine Color Yellow Urine Appearance Turbid Urine pH 5.5 Ur Specific [place] 1.023 Urine Protein 3+ H Urine Glucose (UA) Negative Urine Ketones Trace H Urine Blood 3+ H Urine Nitrite Negative Urine Bilirubin Negative Urine Urobilinogen 1.0 Ur Leukocyte Esterase 2+ H Urine WBC (Auto) 300 Urine RBC (Auto) 6607.7 Urine Casts (Auto) 10 U Pathogenic Cast Auto Negative U Epithel Cells (Auto) >36 Urine Crystals (Auto) Few Urine Bacteria (Auto) 149 03/24/20 15:15 RBC 4.48 MCV 83.4 MCHC 33.7 RDW 14.4 MPV 7.4 L Neutrophils % 67.5 Lymphocytes % 22.8 Monocytes % 6.3 Eosinophils % 1.9 D Basophils % 1.5 D - RADIOLOGY Radiology Studies Ordered: Category Date Time Status ABDOMEN & PELVIS CT W/O CONTR [CT] Stat CT Scan 03/24/20 18:11 Ordered - Medications Given in the ED: ED Medications Discontinued Medications Generic Name Dose Route Start Last Admin Trade Name Freq PRN Reason Stop Dose Admin Acetaminophen 1,000 mg 03/24/20 14:50 03/24/20 15:27 Ofirmev Injection - IVPB 03/24/20 14:51 1,000 mg ONCE ONE Administration Medical Decision Making - Medical Decision Making 03/24/20 18:00 Care received at 1700 Briefly, pt with hx nephrolithiasis c/b sepsis+ICU stay, recent L sided stent placed p/w L flank pain. labs wnl. UA c/f for infection, pt covered with zosyn based on prev cultures US and c/s with Dr. Fonseca (uro) pending On my evaluation, pt reports she took motrin for pain, is improved at this time but still having dysuria and mild L flank pain. States this feels similar to when she had a kidney infection in the past GENERAL: Awake, alert, and fully oriented, in no acute distress. Non toxic EYES: PERRLA ENT: MM LUNGS: Breath sounds equal, clear to auscultation bilaterally. No wheezes, and no crackles HEART: Regular rate and rhythm, normal S1 and S2, no murmurs, rubs or gallops ABDOMEN: Soft, nontender, normoactive bowel sounds. No guarding, no rebound. No masses. +L CVAT EXTREMITIES: Normal range of motion, no edema. No clubbing or cyanosis. No cords, erythema, or tenderness NEUROLOGICAL: Normal speech, cranial nerves intact, equal strength and sensation b/l SKIN: Warm, Dry, normal turgor, no rashes or lesions noted. US reveals mild L hydro, 3rd call placed awaiting call back CTAP non con ordered to eval for hydro 03/24/20 19:00 Case discussed with covering physician Dr. Destiny Conde, agrees with plan for CTAP, will see pt CTAP pending, will admit to hosp afterwards 03/24/20 21:39 CTAP w concern for stent occlusion. Stent in good position. Dr. Conde updated about CT results Hospitalist paged for admission 03/24/20 21:47 Case discussed with MAJOR Garcia, pt accepted for admission to Dr. Aranda's service Case discussed in detail with admitting physician including history, physical exam and ancillary studies. Admitting physician has assumed care for the patient, will follow all pending diagnostics and will complete the evaluation and treatment. Discharge - Discharge Information Problems reviewed: Yes Clinical Impression/Diagnosis: Flank pain, Hydronephrosis, UTI (urinary tract infection) - Follow up/Referral - Patient Discharge Instructions - Post Discharge Activity
[2020-03-24] MEDS ORDERED: ACETAMINOPHEN 325 MG TABLET (FP) ONE (22:21)
--- NOTE | 2020-03-24 22:34 | HP ---
Admitting History and Physical - Primary Care Physician PCP: Kelvin Hansen - Admission Chief Complaint: Flank Pain, Dysuria History of Present Illness: This is a 54 y/o female with a PMHx of Renal Calculi, Hematuria, s/p Ureteral Stent, SVT, Hypokalemia, Asthma, last admission Feb 2019 Urosepsis, Hydronephrosis. Who presents to the ED with left flank pain radiating to the abdomen, hematuria, burning and pain with urination x 2 days. Patient reports having recent ureteral stent placement 2 weeks ago. She reports notifying Dr Hawley and being started on antibiotics taking only one dose today. Patient reports having nausea. Patient denies fever, chills, cough, SOB, dizziness, CORONEL, CP, palpitations, V/D, constipation, melena, hematochezia. History Source: Patient Limitations to Obtaining History: No Limitations - Past Medical History Cardiovascular: Yes: Other (svt) Pulmonary: Yes: Asthma Hepatobiliary: Yes: Cholelithiasis Renal/: Yes: Hematuria, Renal Calculi, UTI, Other (hypokalemia) ...: No Infectious Disease: Yes: Other (REC. UTI) - Past Surgical History Past Surgical History: Yes: , Hysterectomy, Stent (Ureteral), Tubal Ligation - Smoking History Smoking history: Former smoker Have you smoked in the past 12 months: No Aproximately how many cigarettes per day: 1 - Alcohol/Substance Use Hx Alcohol Use: No History of Substance Use: reports: None - Social History Usual Living Arrangement: Yes: With Child ADL: Independent History of Recent Travel: No Home Medications - Allergies Allergies/Adverse Reactions: Allergies Allergy/AdvReac Type Severity Reaction Status Date / Time polyethylene glycol Allergy Severe Difficulty Verified 03/24/20 13:27 Breathing latex Allergy Mild Verified 03/24/20 13:27 lidocaine Allergy Verified 03/24/20 13:27 orange Allergy Verified 03/24/20 13:27 paprika Allergy Verified 03/24/20 13:27 peanut Allergy Difficulty Verified 03/24/20 13:27 Breathing procaine HCl [From Novocain] Allergy Verified 03/24/20 13:27 shellfish derived Allergy Hives Verified 03/24/20 13:27 apple cider vinegar Allergy Intermediate Difficulty Uncoded 03/24/20 13:27 Breathing POLYURETHANE Allergy Intermediate Swelling Uncoded 03/24/20 13:27 shrimp Allergy Intermediate Hives Uncoded 03/24/20 13:27 - Home Medications Home Medications: Ambulatory Orders Diphenhydramine HCl [Benadryl Capsule -] 25 mg PO HS 06/06/17 Albuterol Sulfate Inhaler - [Ventolin HFA Inhaler -] 1 - 2 inh PO QID PRN 02/28/19 Albuterol 0.083% Nebulizer Maddie [Ventolin 0.083% Nebulizer Soln -] 1 amp NEB DAILY PRN 05/10/19 Famotidine [Pepcid] 20 mg PO BID 05/10/19 Amox-Tr/K Cl [Augmentin 875-125mg Tablet -] 1 tab PO BID@0800,1730 10 Days #20 tablet 02/28/20 Lactobacillus Acidophilus [Bacid -] 1 each PO TID 14 Days #42 capsule 02/28/20 Potassium Chloride [K-Dur -] 20 meq PO DAILY tablet.er 02/28/20 Family Medical History Family History: As Documented Family Hx Cancer: Mother (Melanoma), Father (Lung) Family Hx Coronary Artery Disease: Sister (HTN) Family Hx Gastrointestinal Disorder: Mother (GI Bleed) Review of Systems - Review of Systems Constitutional: reports: Loss of Appetite Eyes: reports: No Symptoms HENT: reports: No Symptoms Neck: reports: No Symptoms Cardiovascular: reports: No Symptoms Respiratory: reports: No Symptoms Gastrointestinal: reports: Abdominal Pain, Nausea Genitourinary: reports: Burning, Dysuria, Flank Pain, Hematuria Breasts: reports: No Symptoms Reported Musculoskeletal: reports: No Symptoms Integumentary: reports: No Symptoms Neurological: reports: No Symptoms Endocrine: reports: No Symptoms Hematology/Lymphatic: reports: No Symptoms Psychiatric: reports: No Symptoms Pain Intensity: 6 Physical Examination Vital Signs: Vital Signs Temperature 99 F 03/24/20 13:24 Pulse Rate 94 H 03/24/20 13:24 Respiratory Rate 19 03/24/20 13:24 Blood Pressure 137/84 03/24/20 13:24 O2 Sat by Pulse Oximetry (%) 97 03/24/20 13:24 Constitutional: Yes: Mild Distress Eyes: Yes: WNL, Conjunctiva Clear, EOM Intact, PERRL HENT: Yes: WNL, Atraumatic, Normocephalic Neck: Yes: WNL, Supple, Trachea Midline Cardiovascular: Yes: WNL, Regular Rate and Rhythm, S1, S2 Respiratory: Yes: WNL, Regular, CTA Bilaterally Gastrointestinal: Yes: Normal Bowel Sounds, Soft ...Rectal Exam: Yes: Deferred Renal/: Yes: CVA Tenderness - Left Breast(s): Yes: WNL Musculoskeletal: Yes: WNL Extremities: Yes: WNL Edema: No Integumentary: Yes: WNL Neurological: Yes: WNL, Alert, Oriented ...Motor Strength: WNL Psychiatric: Yes: WNL, Alert, Oriented Labs: CBC, BMP 03/24/20 15:15 03/24/20 15:15 Laboratory Results - last 24 hr 03/24/20 03/24/20 03/24/20 15:15 15:15 15:15 WBC 6.9 RBC 4.48 Hgb 12.6 Hct 37.4 MCV 83.4 MCH 28.1 MCHC 33.7 RDW 14.4 Plt Count 257 MPV 7.4 L Absolute Neuts (auto) 4.7 Neutrophils % 67.5 Lymphocytes % 22.8 Monocytes % 6.3 Eosinophils % 1.9 D Basophils % 1.5 D Nucleated RBC % 0 Sodium 139 Potassium 4.1 Chloride 107 Carbon Dioxide 26 Anion Gap 6 L BUN 19.8 H Creatinine 0.6 Est GFR (CKD-EPI)AfAm 118.09 Est GFR (CKD-EPI)NonAf 101.89 Random Glucose 93 Calcium 9.1 Total Bilirubin 0.2 AST 22 ALT 21 Alkaline Phosphatase 83 Total Protein 7.0 Albumin 4.0 Urine Color Yellow Urine Appearance Turbid Urine pH 5.5 Ur Specific [place] 1.023 Urine Protein 3+ H Urine Glucose (UA) Negative Urine Ketones Trace H Urine Blood 3+ H Urine Nitrite Negative Urine Bilirubin Negative Urine Urobilinogen 1.0 Ur Leukocyte Esterase 2+ H Urine WBC (Auto) 300 Urine RBC (Auto) 6607.7 Urine Casts (Auto) 10 U Pathogenic Cast Auto Negative U Epithel Cells (Auto) >36 Urine Crystals (Auto) Few Urine Bacteria (Auto) 149 Current Medications Generic Name Dose Route Start Last Admin Trade Name Freq PRN Reason Stop Dose Admin Acetaminophen 1,000 mg 03/25/20 02:19 Ofirmev Injection - IVPB 03/26/20 02:19 Q6H PRN PAIN LEVEL 6-10 Dextrose/Sodium Chloride 1,000 mls @ 100 mls/hr 03/24/20 22:15 03/25/20 02:26 D5-1/2ns - IV 100 mls/hr ASDIR IBETH Administration Piperacillin Sod/Tazobactam 50 mls @ 100 mls/hr 03/25/20 02:30 Sod 3.375 gm/ Dextrose IVPB Q8H-IV IBETH Protocol Piperacillin Sod/Tazobactam 50 mls @ 100 mls/hr 03/25/20 02:30 Sod 3.375 gm/ Dextrose IVPB 03/25/20 18:29 Q8H-IV IBETH Protocol Imaging - Results Chest X-ray: Image Reviewed Cat Scan: Report Reviewed, Image Reviewed Ultrasound: Report Reviewed, Image Reviewed EKG: Pending Problem List - Problems (1) Ureteral stent occlusion Assessment/Plan: CTAP image and report reviewed- mild to moderate left hydronephrosis is seen which appears mildly increased from previous exam- ? possible stent occlusion. no ureteral or urinary bladder calculus. note is again made of 0.3cm left renal and 0.2cm right renal nonobstructing calculi. Appreciate Urology consult- Dr Li Hawley aware per ED resident Continue IVF NPO Monitor CBC, CMP Monitor vitals Code(s): T83.192A - ME[facility] COMPL OF INDWELLING URETERAL STENT, INITIAL ENCOUNTER (2) Hydronephrosis Assessment/Plan: see above Code(s): N13.30 - UNSPECIFIED HYDRONEPHROSIS (3) Complicated UTI (urinary tract infection) Assessment/Plan: Likely secondary to ureteral occlusion Urine Culture hx of proteus mirabalis, staphylococcus, pseudomonas UA- +3 protein, trace ketones, +3 blood, +2 leukocyte esterase, 300 WBCs, 6607 RBCs, 149 Bacteria Urine Culture-pending Zosyn given in ED, will continue Appreciate ID consult Monitor CBC, CMP Monitor vitals Code(s): N39.0 - URINARY TRACT INFECTION, SITE NOT SPECIFIED (4) Flank pain Assessment/Plan: CTAP- ureteral stent occlusion Code(s): R10.9 - UNSPECIFIED ABDOMINAL PAIN (5) Asthma Assessment/Plan: stable No acute flare Albuterol MDI prn Monitor vitals Code(s): J45.909 - UNSPECIFIED ASTHMA, UNCOMPLICATED (6) Encounter for screening laboratory testing for COVID-19 virus Assessment/Plan: Low Risk COVID PCR-pending Isolation Precautions Code(s): Z11.59 - ENCOUNTER FOR SCREENING FOR OTHER VIRAL DISEASES Assessment/Plan This is a 54 y/o female admitted for Ureteral Stent Occlusion, Complicated UTI, Hydronephrosis for further evaluation of their emergent condition. Plsn: See Problem List FEN D50.45%NS@100ml/hr Replete lytes prn NPO DVT ppx OOB SCDs Heparin SQ Dispo: Requires Inpatient Care Visit type - Emergency Visit Emergency Visit: Yes ED Registration Date: 03/24/20 Care time: The patient presented to the Emergency Department on the above date and was hospitalized for further evaluation of their emergent condition. - New Patient This patient is new to me today: Yes Date on this admission: 03/24/20 - Critical Care Critical Care patient: No
[2020-03-25] MEDS ORDERED: KETOROLAC TROMETHAMINE 15 MG/ML VIAL IVPUSH ONE (02:17)
[2020-03-25] MEDS ORDERED: ACETAMINOPHEN 1000 MG/100 ML VIAL (NON FORMULARY) IVPB PRN (02:19)
[2020-03-25] MEDS: DEXTROSE 5%-0.45% SALINE 1,000 ML IV SCH (02:26)
[2020-03-25] MEDS ORDERED: PIPERACILLIN/TAZOB 3.375 GM 3.375 GM/50 ML BAG IVPB ONE ×3 (02:34→10:16)
[2020-03-25] MEDS: PIPERACILLIN/TAZOB 3.375 GM 3.375 GM in DEXTROSE 5%-WATER - 50 ML IVPB SCH ×3 (03:33→18:11)
[2020-03-25 06:32] LABS: BASO % 0.7 % (0-2.0); EOS % 2.7 % (0-4.5); HEMATOCRIT 36.3 % (32.4-45.2); HEMOGLOBIN 12.2 GM/dL (10.7-15.3); LYMPH % 30.4 % (8-40); MCHC 33.6 g/dl (32.0-36.0); MEAN CELL VOLUME 83.3 fl (80-96); MEAN PLT VOLUME 7.2 fl (7.5-11.1); MONO % 7.3 % (3.8-10.2); NEUT % 58.9 % (42.8-82.8); PLATELET COUNT 249 K/MM3 (134-434); RBC 4.36 M/mm3 (3.60-5.2); RDW 14.5 % (11.6-15.6); WHITE BLOOD COUNT 5.3 K/mm3 (4.0-10.0)
[2020-03-25] MEDS ORDERED: ALBUTEROL SO4 HFA INHALER IH PRN (06:33)
[2020-03-25 06:43] LABS: INR 0.97 (0.83-1.09); PROTHROMBIN TIME (PATIENT) 11.4 SEC (9.7-13.0)
[2020-03-25 06:59] LABS: ALBUMIN 3.8 g/dl (3.4-5.0); BILIRUBIN,TOTAL 0.2 mg/dL (0.2-1); CALCIUM 8.4 mg/dL (8.5-10.1); CREATININE 0.7 mg/dL (0.55-1.3); POTASSIUM 3.6 mmol/L (3.5-5.1); TOT PROT 6.9 g/dl (6.4-8.2)
--- NOTE | 2020-03-25 09:27 | PN ---
Progress Note, Physician Chief Complaint: abd pain, slightly better, no fever, no chills, no other c/o. - Current Medication List Current Medications: Active Medications Acetaminophen (Ofirmev Injection -) 1,000 mg IVPB Q6H PRN PRN Reason: PAIN LEVEL 6-10 Stop: 03/26/20 02:19 Albuterol Sulfate (Ventolin Hfa Inhaler -) 2 puff IH Q4H PRN PRN Reason: SHORT OF BREATH/WHEEZING Dextrose/Sodium Chloride (D5-1/2ns -) 1,000 mls @ 100 mls/hr IV ASDIR IBETH Last Admin: 03/25/20 02:26 Dose: 100 mls/hr Documented by: Piperacillin Sod/Tazobactam (Sod 3.375 gm/ Dextrose) 50 mls @ 100 mls/hr IVPB Q8H-IV BIETH; Protocol Piperacillin Sod/Tazobactam (Sod 3.375 gm/ Dextrose) 50 mls @ 100 mls/hr IVPB Q8H-IV IBETH; Protocol Stop: 03/25/20 18:29 Last Admin: 03/25/20 03:33 Dose: 100 mls/hr Documented by: - Objective Vital Signs: Vital Signs Temperature 98.9 F 03/25/20 04:12 Pulse Rate 78 03/25/20 04:12 Respiratory Rate 03/25/20 04:12 Blood Pressure 132/89 03/25/20 04:12 O2 Sat by Pulse Oximetry (%) 97 03/25/20 08:48 Constitutional: Yes: Well Nourished, No Distress, Calm Eyes: Yes: Conjunctiva Clear, EOM Intact HENT: Yes: Atraumatic, Normocephalic Neck: Yes: Supple, Trachea Midline Cardiovascular: Yes: Regular Rate and Rhythm Respiratory: Yes: Regular, CTA Bilaterally Gastrointestinal: Yes: Normal Bowel Sounds, Soft, Other (non tenderness,) Genitourinary: Yes: Other Edema: No Peripheral Pulses WNL: Yes Neurological: Yes: WNL ...Motor Strength: WNL Labs: CBC, BMP 03/25/20 05:56 03/25/20 05:56 INR, PTT INR 0.97 (0.83-1.09) 03/25/20 05:56 Impression/Plan Impression/Plan: This is a 54 y/o female admitted for Ureteral Stent Occlusion, Complicated UTI, Hydronephrosis for further evaluation of their emergent condition. CTAP image and report reviewed- mild to moderate left hydronephrosis is seen which appears mildly increased from previous exam- ? possible stent occlusion. no ureteral or urinary bladder calculus. note is again made of 0.3cm left renal and 0.2cm right renal nonobstructing calculi. D50.45%NS@100ml/hr and on iv zosn ID and consult, Replete lytes prn DVT ppx OOB SCDs Heparin SQ Visit type - Emergency Visit Emergency Visit: No - New Patient This patient is new to me today: Yes Date on this admission: 03/25/20 - Critical Care Critical Care patient: No - Discharge Referral Referred to [facility] No
--- NOTE | 2020-03-25 12:54 | CON.ID ---
Consult - History of Present Illness History of Present Illness: 54 y.o. female with PMH of nephrolithiasis, UTI/Septic shock 02/2019, multiple subsequent UTIs, s/p Lt ureteral stent placement a few weeks ago presents with c/o Lt flank pain and dysuria. States she started feeling Lt flank pain after the stent placement which didn't resolve and was taking oral antibiotics. Has been following up with Urology as outpatient. About 2 days ago she had worsening discomfort with dysuria/hematuria and nausea. Has been taking ibuprofen at home for the pain. She denies fever/chills and has no other symptoms. In the ER noted to have temp of 99F but otherwise without acute distress/vitals normal. Imaging studies reveal Lt hydronephrosis with possible stent occlusion. Currently pain is controlled. - History Source History Provided By: Patient Limitations to Obtaining History: No Limitations - Past Medical History Cardio/Vascular: Yes: Other (svt) Pulmonary: Yes: Asthma Hepatobiliary: Yes: Cholelithiasis Renal/: Yes: Hematuria, Renal Calculi, UTI, Other (hypokalemia) ...: No Infectious Disease: Yes: Other (REC. UTI) - Past Surgical History Past Surgical History: Yes: , Hysterectomy, Stent (Ureteral), Tubal Ligation - Alcohol/Substance Use Hx Alcohol Use: No History of Substance Use: reports: None - Smoking History Smoking history: Former smoker Have you smoked in the past 12 months: No Aproximately how many cigarettes per day: 1 - Social History Usual Living Arrangement: With Child ADL: Independent History of Recent Travel: No Home Medications - Allergies Allergies/Adverse Reactions: Allergies Allergy/AdvReac Type Severity Reaction Status Date / Time polyethylene glycol Allergy Severe Difficulty Verified 03/24/20 13:27 Breathing latex Allergy Mild Verified 03/24/20 13:27 lidocaine Allergy Verified 03/24/20 13:27 orange Allergy Verified 03/24/20 13:27 paprika Allergy Verified 03/24/20 13:27 peanut Allergy Difficulty Verified 03/24/20 13:27 Breathing procaine HCl [From Novocain] Allergy Verified 03/24/20 13:27 shellfish derived Allergy Hives Verified 03/24/20 13:27 apple cider vinegar Allergy Intermediate Difficulty Uncoded 03/24/20 13:27 Breathing POLYURETHANE Allergy Intermediate Swelling Uncoded 03/24/20 13:27 shrimp Allergy Intermediate Hives Uncoded 03/24/20 13:27 - Home Medications Home Medications: Ambulatory Orders Diphenhydramine HCl [Benadryl Capsule -] 25 mg PO HS 06/06/17 Albuterol Sulfate Inhaler - [Ventolin HFA Inhaler -] 1 - 2 inh PO QID PRN 02/28/19 Albuterol 0.083% Nebulizer Maddie [Ventolin 0.083% Nebulizer Soln -] 1 amp NEB DAILY PRN 05/10/19 Famotidine [Pepcid] 20 mg PO BID 05/10/19 Amox-Tr/K Cl [Augmentin 875-125mg Tablet -] 1 tab PO BID@0800,1730 10 Days #20 tablet 02/28/20 Lactobacillus Acidophilus [Bacid -] 1 each PO TID 14 Days #42 capsule 02/28/20 Potassium Chloride [K-Dur -] 20 meq PO DAILY tablet.er 02/28/20 Family Medical History Family Hx Cancer: Mother (Melanoma), Father (Lung) Family Hx Coronary Artery Disease: Sister (HTN) Family Hx Gastrointestinal Disorder: Mother (GI Bleed) Review of Systems - Review of Systems Constitutional: reports: No Symptoms Eyes: reports: No Symptoms HENT: reports: No Symptoms Neck: reports: No Symptoms Cardiovascular: reports: No Symptoms Respiratory: reports: No Symptoms Gastrointestinal: reports: No Symptoms Genitourinary: reports: Dysuria, Flank Pain (Lt), Hematuria Musculoskeletal: reports: No Symptoms Integumentary: reports: No Symptoms Neurological: reports: No Symptoms Endocrine: reports: No Symptoms Hematology/Lymphatic: reports: No Symptoms Psychiatric: reports: No Symptoms Physical Exam Vital Signs: Vital Signs Temperature 98.9 F 03/25/20 04:12 Pulse Rate 78 03/25/20 04:12 Respiratory Rate 20 03/25/20 04:12 Blood Pressure 132/89 03/25/20 04:12 O2 Sat by Pulse Oximetry (%) 97 03/25/20 08:48 Constitutional: Yes: No Distress, Calm Eyes: Yes: Conjunctiva Clear, EOM Intact HENT: Yes: Atraumatic Neck: Yes: Supple Cardiovascular: Yes: Regular Rate and Rhythm Respiratory: Yes: CTA Bilaterally Gastrointestinal: Yes: Normal Bowel Sounds, Soft, Abdomen, Obese Renal/: Yes: CVA Tenderness - Left Musculoskeletal: Yes: WNL Extremities: Yes: WNL Integumentary: Yes: WNL Neurological: Yes: Alert, Oriented Labs: CBC, BMP 03/25/20 05:56 03/25/20 05:56 Laboratory Tests 03/24/20 03/24/20 03/24/20 15:15 15:15 15:15 WBC 6.9 RBC 4.48 Hgb 12.6 Hct 37.4 MCV 83.4 MCH 28.1 MCHC 33.7 RDW 14.4 Plt Count 257 MPV 7.4 L Absolute Neuts (auto) 4.7 Neutrophils % 67.5 Lymphocytes % 22.8 Monocytes % 6.3 Eosinophils % 1.9 D Basophils % 1.5 D Nucleated RBC % 0 PT with INR INR Sodium 139 Potassium 4.1 Chloride 107 Carbon Dioxide 26 Anion Gap 6 L BUN 19.8 H Creatinine 0.6 Est GFR (CKD-EPI)AfAm 118.09 Est GFR (CKD-EPI)NonAf 101.89 Random Glucose 93 Calcium 9.1 Total Bilirubin 0.2 AST 22 ALT 21 Alkaline Phosphatase 83 Total Protein 7.0 Albumin 4.0 Urine Color Yellow Urine Appearance Turbid Urine pH 5.5 Ur Specific [place] 1.023 Urine Protein 3+ H Urine Glucose (UA) Negative Urine Ketones Trace H Urine Blood 3+ H Urine Nitrite Negative Urine Bilirubin Negative Urine Urobilinogen 1.0 Ur Leukocyte Esterase 2+ H Urine WBC (Auto) 300 Urine RBC (Auto) 6607.7 Urine Casts (Auto) 10 U Pathogenic Cast Auto Negative U Epithel Cells (Auto) >36 Urine Crystals (Auto) Few Urine Bacteria (Auto) 149 03/25/20 03/25/20 03/25/20 05:56 05:56 05:56 WBC 5.3 RBC 4.36 Hgb 12.2 Hct 36.3 MCV 83.3 MCH 28.0 MCHC 33.6 RDW 14.5 Plt Count 249 MPV 7.2 L Absolute Neuts (auto) 3.1 Neutrophils % 58.9 Lymphocytes % 30.4 D Monocytes % 7.3 Eosinophils % 2.7 Basophils % 0.7 Nucleated RBC % 0 PT with INR 11.40 INR 0.97 Sodium 142 Potassium 3.6 Chloride 107 Carbon Dioxide 28 Anion Gap 6 L BUN 15.0 Creatinine 0.7 Est GFR (CKD-EPI)AfAm 112.26 Est GFR (CKD-EPI)NonAf 96.86 Random Glucose 150 H Calcium 8.4 L Total Bilirubin 0.2 AST 16 ALT 18 Alkaline Phosphatase 75 Total Protein 6.9 Albumin 3.8 Urine Color Urine Appearance Urine pH Ur Specific [place] Urine Protein Urine Glucose (UA) Urine Ketones Urine Blood Urine Nitrite Urine Bilirubin Urine Urobilinogen Ur Leukocyte Esterase Urine WBC (Auto) Urine RBC (Auto) Urine Casts (Auto) U Pathogenic Cast Auto U Epithel Cells (Auto) Urine Crystals (Auto) Urine Bacteria (Auto) Imaging - Results Cat Scan: Report Reviewed Ultrasound: Report Reviewed Problem List - Problems (1) Complicated UTI (urinary tract infection) Code(s): N39.0 - URINARY TRACT INFECTION, SITE NOT SPECIFIED (2) Hydronephrosis Code(s): N13.30 - UNSPECIFIED HYDRONEPHROSIS (3) Ureteral stent occlusion Code(s): T83.192A - [facility] COMPL OF INDWELLING URETERAL STENT, INITIAL ENCOUNTER (4) Renal calculus Code(s): N20.0 - CALCULUS OF KIDNEY (5) S/P ureteral stent placement Code(s): Z96.0 - PRESENCE OF UROGENITAL IMPLANTS Assessment/Plan Complicated UTI Nephrolithiasis s/p Lt nephroureteral stent Possible stent occlusion -- labs and imaging results noted -- will continue Zosyn empirically (pt with hx of multiple UTIs , Pseudomonal infection) -- follow up Urine culture isolate -- Urology evaluation -- monitor vitals/cbc/bmp -- pain control Will follow up Thank you
--- NOTE | 2020-03-25 13:45 | CONSULT ---
Consult Consult Specialty:: UROLOGY Reason for Consultation:: Left hydronephrosis - History of Present Illness Chief Complaint: 54Y/O female with a PMHx of Renal Calculi, Hematuria, s/p Ureteral Stent, SVT, Hypokalemia, Asthma, last admission Feb 2019 Urosepsis, Hydronephrosis with Left jj stent insertion. She presents to the ED with left flank pain radiating to the abdomen, hematuria, burning and pain with urination x 2 days. Patient reports having nausea. Patient denies fever, chills, cough, SOB, dizziness, CORONEL, CP, palpitations, V/D, constipation, melena, hematochezia. WBC 5.3 HB 12.2. BUN 15.[address]-Scan left jj stent inplace with mild to moderate hydro. Bilateral renal stones 3mm. She is admitted and started on IV abx Zosyn - Past Medical History Cardio/Vascular: Yes: Other (svt) Pulmonary: Yes: Asthma Hepatobiliary: Yes: Cholelithiasis Renal/: Yes: Hematuria, Renal Calculi, UTI, Other (hypokalemia) ...: No Infectious Disease: Yes: Other (REC. UTI) - Past Surgical History Past Surgical History: Yes: , Hysterectomy, Stent (Ureteral), Tubal Ligation - Alcohol/Substance Use Hx Alcohol Use: No History of Substance Use: reports: None - Smoking History Smoking history: Former smoker Have you smoked in the past 12 months: No Aproximately how many cigarettes per day: 1 - Social History Usual Living Arrangement: With Child ADL: Independent History of Recent Travel: No Home Medications - Allergies Allergies/Adverse Reactions: Allergies Allergy/AdvReac Type Severity Reaction Status Date / Time polyethylene glycol Allergy Severe Difficulty Verified 03/24/20 13:27 Breathing latex Allergy Mild Verified 03/24/20 13:27 lidocaine Allergy Verified 03/24/20 13:27 orange Allergy Verified 03/24/20 13:27 paprika Allergy Verified 03/24/20 13:27 peanut Allergy Difficulty Verified 03/24/20 13:27 Breathing procaine HCl [From Novocain] Allergy Verified 03/24/20 13:27 shellfish derived Allergy Hives Verified 03/24/20 13:27 apple cider vinegar Allergy Intermediate Difficulty Uncoded 03/24/20 13:27 Breathing POLYURETHANE Allergy Intermediate Swelling Uncoded 03/24/20 13:27 shrimp Allergy Intermediate Hives Uncoded 03/24/20 13:27 - Home Medications Home Medications: Ambulatory Orders Diphenhydramine HCl [Benadryl Capsule -] 25 mg PO HS 06/06/17 Albuterol Sulfate Inhaler - [Ventolin HFA Inhaler -] 1 - 2 inh PO QID PRN 02/28/19 Albuterol 0.083% Nebulizer Maddie [Ventolin 0.083% Nebulizer Soln -] 1 amp NEB DAILY PRN 05/10/19 Famotidine [Pepcid] 20 mg PO BID 05/10/19 Amox-Tr/K Cl [Augmentin 875-125mg Tablet -] 1 tab PO BID@0800,1730 10 Days #20 tablet 02/28/20 Lactobacillus Acidophilus [Bacid -] 1 each PO TID 14 Days #42 capsule 02/28/20 Potassium Chloride [K-Dur -] 20 meq PO DAILY tablet.er 02/28/20 Family Medical History Family Hx Cancer: Mother (Melanoma), Father (Lung) Family Hx Coronary Artery Disease: Sister (HTN) Family Hx Gastrointestinal Disorder: Mother (GI Bleed) Physical Exam Vital Signs: Vital Signs Temperature 97.9 F 03/25/20 12:53 Pulse Rate 80 03/25/20 12:53 Respiratory Rate 18 03/25/20 12:53 Blood Pressure 138/82 03/25/20 12:53 O2 Sat by Pulse Oximetry (%) 99 03/25/20 12:53 Labs: CBC, BMP 03/25/20 05:56 03/25/20 05:56 Assessment/Plan UTI Left hydronephrosis Bilateral renal stones Plan: keep IV abx will follow
[2020-03-25] MEDS ORDERED: PIPERACILLIN/TAZOBACTAM 3.375 GM VIAL IVPB ONE (17:52)
[2020-03-25] MEDS ORDERED: DEXTROSE 5%-WATER - 50 ML IVPB ONE (17:53)
[2020-03-25] MEDS: KETOROLAC TROMETHAMINE 15 MG/ML VIAL IM PRN (20:29)
[2020-03-26] MEDS ORDERED: PIPERACILLIN/TAZOBACTAM 3.375 GM VIAL IVPB ONE ×3 (01:37→17:11)
[2020-03-26] MEDS ORDERED: DEXTROSE 5%-WATER - 50 ML IVPB ONE ×3 (01:37→17:12)
[2020-03-26] MEDS: PIPERACILLIN/TAZOB 3.375 GM 3.375 GM in DEXTROSE 5%-WATER - 50 ML IVPB SCH ×3 (01:58→17:20)
[2020-03-26 08:14] LABS: HEMATOCRIT 34.4 % (32.4-45.2); HEMOGLOBIN 11.3 GM/dL (10.7-15.3); LYMPH % 35.4 % (8-40); MCH 27.7 pg (25.7-33.7); MCHC 32.9 g/dl (32.0-36.0); MEAN CELL VOLUME 84.1 fl (80-96); MEAN PLT VOLUME 7.5 fl (7.5-11.1); MONO % 7.1 % (3.8-10.2); NEUT % 51.5 % (42.8-82.8); PLATELET COUNT 253 K/MM3 (134-434); RBC 4.09 M/mm3 (3.60-5.2); RDW 14.1 % (11.6-15.6); WHITE BLOOD COUNT 5.7 K/mm3 (4.0-10.0)
[2020-03-26 08:55] LABS: POTASSIUM 4.2 mmol/L (3.5-5.1)
[2020-03-26 09:03] LABS: ALBUMIN 3.4 g/dl (3.4-5.0); BILIRUBIN,TOTAL 0.4 mg/dL (0.2-1); BLOOD UREA NITROGEN 16.6 mg/dL (7-18); CALCIUM 8.6 mg/dL (8.5-10.1); CREATININE 0.6 mg/dL (0.55-1.3); TOT PROT 7.1 g/dl (6.4-8.2)
[2020-03-26] MEDS: DEXTROSE 5%-0.45% SALINE 1,000 ML IV SCH (10:06)
--- NOTE | 2020-03-26 10:35 | PN ---
Physical Exam: SUBJECTIVE: Patient seen and examined OBJECTIVE: Vital Signs Period Temp Pulse Resp BP Sys/Gifford Pulse Ox Last 24 Hr 97.7 F-98.7 F 77-91 16-20 123-143/65-90 94-99 GENERAL: The patient is awake, alert, and fully oriented, in no acute distress. HEAD: Normal with no signs of trauma. EYES: PERRL, extraocular movements intact, sclera anicteric, conjunctiva clear. No ptosis. ENT: Ears normal, nares patent, oropharynx clear without exudates, moist mucous membranes. NECK: Trachea midline, full range of motion, supple. LUNGS: Breath sounds equal, clear to auscultation bilaterally, no wheezes, no crackles, no accessory muscle use. HEART: Regular rate and rhythm, S1, S2 without murmur, rub or gallop. ABDOMEN: Soft, nontender, nondistended, normoactive bowel sounds, no guarding, no rebound, no hepatosplenomegaly, no masses. EXTREMITIES: 2+ pulses, warm, well-perfused, no edema. NEUROLOGICAL: Cranial nerves II through XII grossly intact. Normal speech, gait not observed. PSYCH: Normal mood, normal affect. SKIN: Warm, dry, normal turgor, no rashes or lesions noted Laboratory Results - last 24 hr 03/24/20 03/26/20 03/26/20 19:40 07:10 07:10 WBC 5.7 RBC 4.09 Hgb 11.3 Hct 34.4 MCV 84.1 MCH 27.7 MCHC 32.9 RDW 14.1 Plt Count 253 MPV 7.5 Absolute Neuts (auto) 2.9 Neutrophils % 51.5 Lymphocytes % 35.4 Monocytes % 7.1 Eosinophils % 5.0 H D Basophils % 1.0 Nucleated RBC % 0 Sodium 141 Potassium 4.2 Chloride 108 H Carbon Dioxide 27 Anion Gap 5 L BUN 16.6 Creatinine 0.6 Est GFR (CKD-EPI)AfAm 118.09 Est GFR (CKD-EPI)NonAf 101.89 Random Glucose 94 Calcium 8.6 Total Bilirubin 0.4 AST 22 ALT 22 Alkaline Phosphatase 65 Total Protein 7.1 Albumin 3.4 COVID-19 (KARIME) Not detected Active Medications Generic Name Dose Route Start Last Admin Trade Name Freq PRN Reason Stop Dose Admin Albuterol Sulfate 2 puff 03/25/20 06:33 Ventolin Hfa Inhaler - IH Q4H PRN SHORT OF BREATH/WHEEZING Dextrose/Sodium Chloride 1,000 mls @ 100 mls/hr 03/24/20 22:15 03/26/20 10:06 D5-1/2ns - IV 100 mls/hr ASDIR IBETH Administration Piperacillin Sod/Tazobactam 50 mls @ 100 mls/hr 03/25/20 18:00 03/26/20 10:05 Sod 3.375 gm/ Dextrose IVPB 100 mls/hr Q8H-IV IBETH Administration Protocol Ketorolac Tromethamine 15 mg 03/25/20 19:16 03/25/20 20:29 Toradol Injection - IM 03/30/20 19:15 15 mg Q6H PRN Administration PAIN LEVEL 4 - 6 ASSESSMENT/PLAN: 54 y.o. female with PMH of nephrolithiasis, UTI/Septic shock 02/2019, multiple subsequent UTIs, s/p Lt ureteral stent placement a few weeks ago presents with c/o Lt flank pain and dysuria. States she started feeling Lt flank pain after the stent placement which didn't resolve and was taking oral antibiotics. Imaging studies reveal Lt hydronephrosis mildly increased from previous exam with concern for possible stent occlusion. 1. cont with fluid hydration and pain control 2. zosyn as per ID 3. Urology evaluation appreciated (following) 4. DVT ppx- heparin SQ
[2020-03-26] MEDS ORDERED: FLUCONAZOLE 150 MG TABLET PO ONE (13:00)
[2020-03-26] MEDS: LACTOBACILLUS ACIDOPHILUS 1 TABLET PO SCH (13:58)
[2020-03-26] MEDS: ASCORBIC ACID 500 MG TABLET (FP) PO SCH ×2 (13:58→21:29)
--- NOTE | 2020-03-26 15:57 | PN ---
Progress Note, Physician History of Present Illness: No new complaints. Afebrile. - Current Medication List Current Medications: Active Medications Albuterol Sulfate (Ventolin Hfa Inhaler -) 2 puff IH Q4H PRN PRN Reason: SHORT OF BREATH/WHEEZING Ascorbic Acid (Vitamin C -) 500 mg PO BID IBETH Last Admin: 03/26/20 13:58 Dose: 500 mg Documented by: Diphenhydramine HCl (Benadryl -) 25 mg PO HS PRN PRN Reason: INSOMNIA Dextrose/Sodium Chloride (D5-1/2ns -) 1,000 mls @ 100 mls/hr IV ASDIR IBETH Last Admin: 03/26/20 10:06 Dose: 100 mls/hr Documented by: Piperacillin Sod/Tazobactam (Sod 3.375 gm/ Dextrose) 50 mls @ 100 mls/hr IVPB Q8H-IV IBETH; Protocol Last Admin: 03/26/20 10:05 Dose: 100 mls/hr Documented by: Ketorolac Tromethamine (Toradol Injection -) 15 mg IM Q6H PRN PRN Reason: PAIN LEVEL 4 - 6 Stop: 03/30/20 19:15 Last Admin: 03/25/20 20:29 Dose: 15 mg Documented by: Lactobacillus Acidophilus (Bacid -) 1 tab PO DAILY [facility] Last Admin: 03/26/20 13:58 Dose: 1 tab Documented by: Multivitamins/Minerals (Certavite-Antioxidant Liquid) 15 ml PO DAILY [facility] Potassium Chloride (K-Dur -) 40 meq PO DAILY IBETH - Objective Vital Signs: Vital Signs Temperature 98.7 F 03/26/20 14:00 Pulse Rate 81 03/26/20 14:00 Respiratory Rate 20 03/26/20 14:00 Blood Pressure 145/93 03/26/20 14:00 O2 Sat by Pulse Oximetry (%) 100 03/26/20 14:00 Constitutional: Yes: No Distress, Calm Cardiovascular: Yes: Regular Rate and Rhythm Respiratory: Yes: Regular Gastrointestinal: Yes: Normal Bowel Sounds, Soft Genitourinary: Yes: CVA Tenderness - Left, Other (mild dysuria) Extremities: Yes: WNL Integumentary: Yes: WNL Neurological: Yes: Alert Labs: CBC, BMP 03/26/20 07:10 03/26/20 07:10 INR, PTT INR 0.97 (0.83-1.09) 03/25/20 05:56 Microbiology 03/24/20 15:15 Urine - Urine Clean Catch Urine Culture - Final Normal Urogenital Vika Problem List - Problems (1) Complicated UTI (urinary tract infection) Code(s): N39.0 - URINARY TRACT INFECTION, SITE NOT SPECIFIED (2) Hydronephrosis Code(s): N13.30 - UNSPECIFIED HYDRONEPHROSIS (3) Ureteral stent occlusion Code(s): T83.192A - [facility] COMPL OF INDWELLING URETERAL STENT, INITIAL ENCOUNTER (4) Renal calculus Code(s): N20.0 - CALCULUS OF KIDNEY (5) S/P ureteral stent placement Code(s): Z96.0 - PRESENCE OF UROGENITAL IMPLANTS Assessment/Plan Complicated UTI Nephrolithiasis s/p Lt JJ stent Possible stent occlusion Hx of recurrent UTIs -- Urine cultures no growth (pt was on outpt antibiotics) -- will continue Zosyn empirically ( hx of pseudomonas UTI) -- Urology following -- wbc normal, pt afebrile
[2020-03-26] MEDS: KETOROLAC TROMETHAMINE 15 MG/ML VIAL IM PRN (17:19)
[2020-03-26] MEDS: diphenhydrAMINE HCL 25 MG CAPSULE (FP) PO PRN (17:46)
[2020-03-27] MEDS ORDERED: PIPERACILLIN/TAZOBACTAM 3.375 GM VIAL IVPB ONE ×3 (00:55→17:57)
[2020-03-27] MEDS ORDERED: DEXTROSE 5%-WATER - 50 ML IVPB ONE ×3 (00:55→17:57)
[2020-03-27] MEDS: DEXTROSE 5%-0.45% SALINE 1,000 ML IV SCH ×3 (01:12→22:46)
[2020-03-27] MEDS: PIPERACILLIN/TAZOB 3.375 GM 3.375 GM in DEXTROSE 5%-WATER - 50 ML IVPB SCH ×3 (01:18→18:20)
[2020-03-27] MEDS ORDERED: ACETAMINOPHEN 500 MG TABLET (FP) PO ONE (02:44)
[2020-03-27] MEDS: MULTIVIT-MINERALS ORAL LIQUID PO SCH (10:11)
[2020-03-27] MEDS: POTASSIUM CHLORIDE TABS 20 MEQ TABLET.ER (FP) PO SCH (10:11)
[2020-03-27] MEDS: LACTOBACILLUS ACIDOPHILUS 1 TABLET PO SCH (10:11)
[2020-03-27] MEDS: ASCORBIC ACID 500 MG TABLET (FP) PO SCH ×2 (10:12→22:46)
--- NOTE | 2020-03-27 10:46 | PN ---
Progress Note, Physician History of Present Illness: says she is feeling better - Current Medication List Current Medications: Active Medications Albuterol Sulfate (Ventolin Hfa Inhaler -) 2 puff IH Q4H PRN PRN Reason: SHORT OF BREATH/WHEEZING Ascorbic Acid (Vitamin C -) 500 mg PO BID [facility] Last Admin: 03/27/20 10:12 Dose: 500 mg Documented by: Diphenhydramine HCl (Benadryl -) 25 mg PO HS PRN PRN Reason: INSOMNIA Last Admin: 03/26/20 17:46 Dose: 25 mg Documented by: Dextrose/Sodium Chloride (D5-1/2ns -) 1,000 mls @ 100 mls/hr IV ASDIR IBETH Last Admin: 03/27/20 01:16 Dose: 100 mls/hr Documented by: Piperacillin Sod/Tazobactam (Sod 3.375 gm/ Dextrose) 50 mls @ 100 mls/hr IVPB Q8H-IV IBETH; Protocol Last Admin: 03/27/20 10:10 Dose: 100 mls/hr Documented by: Ketorolac Tromethamine (Toradol Injection -) 15 mg IM Q6H PRN PRN Reason: PAIN LEVEL 4 - 6 Stop: 03/30/20 19:15 Last Admin: 03/26/20 17:19 Dose: 15 mg Documented by: Lactobacillus Acidophilus (Bacid -) 1 tab PO DAILY [facility] Last Admin: 03/27/20 10:11 Dose: 1 tab Documented by: Multivitamins/Minerals (Certavite-Antioxidant Liquid) 15 ml PO DAILY [facility] Last Admin: 03/27/20 10:11 Dose: 15 ml Documented by: Potassium Chloride (K-Dur -) 40 meq PO DAILY [facility] Last Admin: 03/27/20 10:11 Dose: 40 meq Documented by: - Objective Vital Signs: Vital Signs Temperature 97.9 F 03/27/20 05:59 Pulse Rate 78 03/27/20 05:59 Respiratory Rate 18 03/27/20 05:59 Blood Pressure 135/87 03/27/20 05:59 O2 Sat by Pulse Oximetry (%) 98 03/27/20 05:59 Constitutional: Yes: Calm, Mild Distress Cardiovascular: Yes: S1, S2 Respiratory: Yes: Regular, CTA Bilaterally Gastrointestinal: Yes: Soft, Distention Musculoskeletal: Yes: WNL Extremities: Yes: WNL Neurological: Yes: Alert, Oriented Psychiatric: Yes: Alert, Oriented Labs: CBC, BMP 03/26/20 07:10 03/26/20 07:10 INR, PTT INR 0.97 (0.83-1.09) 03/25/20 05:56 Assessment/Plan Problem List - Problems (1) Complicated UTI (urinary tract infection) Code(s): N39.0 - URINARY TRACT INFECTION, SITE NOT SPECIFIED (2) Hydronephrosis Code(s): N13.30 - UNSPECIFIED HYDRONEPHROSIS (3) Ureteral stent occlusion Code(s): T83.192A - [facility] COMPL OF INDWELLING URETERAL STENT, INITIAL ENCOUNTER (4) Renal calculus Code(s): N20.0 - CALCULUS OF KIDNEY (5) S/P ureteral stent placement Code(s): Z96.0 - PRESENCE OF UROGENITAL IMPLANTS Assessment/Plan will deescalte abx tomorrow continue current mgmt
[2020-03-27] MEDS ORDERED: PT OWN MED DRAWER 7, Y5N ONE ×2 (11:18→11:25)
--- NOTE | 2020-03-27 17:15 | PN ---
Physical Exam: SUBJECTIVE: Patient seen and examined OBJECTIVE: Vital Signs Period Temp Pulse Resp BP Sys/Gifford Pulse Ox Last 24 Hr 97.5 F-98.4 F 74-83 18-20 132-156/81-96 98-100 GENERAL: The patient is awake, alert, and fully oriented, in no acute distress. HEAD: Normal with no signs of trauma. EYES: PERRL, extraocular movements intact, sclera anicteric, conjunctiva clear. No ptosis. ENT: Ears normal, nares patent, oropharynx clear without exudates, moist mucous membranes. NECK: Trachea midline, full range of motion, supple. LUNGS: Breath sounds equal, clear to auscultation bilaterally, no wheezes, no crackles, no accessory muscle use. HEART: Regular rate and rhythm, S1, S2 without murmur, rub or gallop. ABDOMEN: Soft, nontender, nondistended, normoactive bowel sounds, no guarding, no rebound, no hepatosplenomegaly, no masses. EXTREMITIES: 2+ pulses, warm, well-perfused, no edema. NEUROLOGICAL: Cranial nerves II through XII grossly intact. Normal speech, gait not observed. PSYCH: Normal mood, normal affect. SKIN: Warm, dry, normal turgor, no rashes or lesions noted Active Medications Generic Name Dose Route Start Last Admin Trade Name Raoq PRN Reason Stop Dose Admin Albuterol Sulfate 2 puff 03/25/20 06:33 Ventolin Hfa Inhaler - IH Q4H PRN SHORT OF BREATH/WHEEZING Ascorbic Acid 500 mg 03/26/20 13:00 03/27/20 10:12 Vitamin C - PO 500 mg BID IBETH Administration Diphenhydramine HCl 25 mg 03/26/20 12:51 03/26/20 17:46 Benadryl - PO 25 mg HS PRN Administration INSOMNIA Dextrose/Sodium Chloride 1,000 mls @ 100 mls/hr 03/24/20 22:15 03/27/20 01:16 D5-1/2ns - IV 100 mls/hr ASDIR IBETH Administration Piperacillin Sod/Tazobactam 50 mls @ 100 mls/hr 03/25/20 18:00 03/27/20 10:10 Sod 3.375 gm/ Dextrose IVPB 100 mls/hr Q8H-IV IBETH Administration Protocol Ketorolac Tromethamine 15 mg 03/25/20 19:16 03/26/20 17:19 Toradol Injection - IM 03/30/20 19:15 15 mg Q6H PRN Administration PAIN LEVEL 4 - 6 Lactobacillus Acidophilus 1 tab 03/26/20 13:00 03/27/20 10:11 Bacid - PO 1 tab DAILY IBETH Administration Multivitamins/Minerals 15 ml 03/27/20 10:00 03/27/20 10:11 Certavite-Antioxidant Liquid PO 15 ml DAILY IBETH Administration Potassium Chloride 40 meq 03/27/20 10:00 03/27/20 10:11 K-Dur - PO 40 meq DAILY IBETH Administration ASSESSMENT/PLAN: 54Y/O female with a PMHx of Renal Calculi, Hematuria, s/p Ureteral Stent, SVT, Hypokalemia, Asthma, last admission Feb 2019 Urosepsis, Hydronephrosis with Left jj stent insertion. She presents to the ED with left flank pain # lt hydronephrosis, UTI possible stent occlusion pt reporting improving symptoms, more clear urine IV ABx per ID IV hydration, painmanagement as indicated urologist following ID following May consider repeat US in AM to re-evaluate. DVT prophylaxis Visit type - Emergency Visit Emergency Visit: Yes ED Registration Date: 03/24/20 Care time: The patient presented to the Emergency Department on the above date and was hospitalized for further evaluation of their emergent condition. - New Patient This patient is new to me today: Yes Date on this admission: 03/27/20 - Critical Care Critical Care patient: No - Discharge Referral Referred to [facility] Med P.C.: No
[2020-03-27] MEDS: diphenhydrAMINE HCL 25 MG CAPSULE (FP) PO PRN (23:17)
[2020-03-27] MEDS ORDERED: WITCH HAZEL 50% (TUCKS) 40 PAD/JAR PAD TP ONE (23:26)
[2020-03-28] MEDS ORDERED: PIPERACILLIN/TAZOBACTAM 3.375 GM VIAL IVPB ONE ×2 (01:03→17:36)
[2020-03-28] MEDS ORDERED: DEXTROSE 5%-WATER - 50 ML IVPB ONE ×2 (01:03→17:36)
[2020-03-28] MEDS: PIPERACILLIN/TAZOB 3.375 GM 3.375 GM in DEXTROSE 5%-WATER - 50 ML IVPB SCH (01:18)
[2020-03-28] MEDS ORDERED: ACETAMINOPHEN 500 MG TABLET (FP) PO ONE (01:20)
--- NOTE | 2020-03-28 07:53 | PN ---
Progress Note, Physician History of Present Illness: says she feels a little better still weak - Current Medication List Current Medications: Active Medications Albuterol Sulfate (Ventolin Hfa Inhaler -) 2 puff IH Q4H PRN PRN Reason: SHORT OF BREATH/WHEEZING Ascorbic Acid (Vitamin C -) 500 mg PO BID [facility] Last Admin: 03/27/20 22:46 Dose: 500 mg Documented by: Diphenhydramine HCl (Benadryl -) 25 mg PO HS PRN PRN Reason: INSOMNIA Last Admin: 03/27/20 23:17 Dose: 25 mg Documented by: Dextrose/Sodium Chloride (D5-1/2ns -) 1,000 mls @ 100 mls/hr IV ASDIR [facility] Last Admin: 03/27/20 22:46 Dose: 100 mls/hr Documented by: Ketorolac Tromethamine (Toradol Injection -) 15 mg IM Q6H PRN PRN Reason: PAIN LEVEL 4 - 6 Stop: 03/30/20 19:15 Last Admin: 03/26/20 17:19 Dose: 15 mg Documented by: Lactobacillus Acidophilus (Bacid -) 1 tab PO DAILY [facility] Last Admin: 03/27/20 10:11 Dose: 1 tab Documented by: Multivitamins/Minerals (Certavite-Antioxidant Liquid) 15 ml PO DAILY [facility] Last Admin: 03/27/20 10:11 Dose: 15 ml Documented by: Potassium Chloride (K-Dur -) 40 meq PO DAILY [facility] Last Admin: 03/27/20 10:11 Dose: 40 meq Documented by: - Objective Vital Signs: Vital Signs Temperature 97.7 F 03/28/20 06:00 Pulse Rate 74 03/28/20 06:00 Respiratory Rate 20 03/28/20 06:00 Blood Pressure 123/83 03/28/20 06:00 O2 Sat by Pulse Oximetry (%) 98 03/28/20 06:00 Constitutional: Yes: Calm, Mild Distress, Obese Cardiovascular: Yes: S1, S2 Respiratory: Yes: Regular, CTA Bilaterally Gastrointestinal: Yes: Normal Bowel Sounds, Soft Musculoskeletal: Yes: WNL Extremities: Yes: WNL Neurological: Yes: Alert, Oriented Psychiatric: Yes: Alert, Oriented Labs: CBC, BMP 03/26/20 07:10 03/26/20 07:10 INR, PTT INR 0.97 (0.83-1.09) 03/25/20 05:56 Assessment/Plan Problem List - Problems (1) Complicated UTI (urinary tract infection) Code(s): N39.0 - URINARY TRACT INFECTION, SITE NOT SPECIFIED (2) Hydronephrosis Code(s): N13.30 - UNSPECIFIED HYDRONEPHROSIS (3) Ureteral stent occlusion Code(s): T83.192A - [facility] COMPL OF INDWELLING URETERAL STENT, INITIAL ENCOUNTER (4) Renal calculus Code(s): N20.0 - CALCULUS OF KIDNEY (5) S/P ureteral stent placement Code(s): Z96.0 - PRESENCE OF UROGENITAL IMPLANTS Assessment/Plan will stop abx and monitor rest as per the team plan for physio
[2020-03-28 08:05] LABS: BASO % 0.5 % (0-2.0); EOS % 4.8 % (0-4.5); HEMATOCRIT 34.2 % (32.4-45.2); HEMOGLOBIN 11.5 GM/dL (10.7-15.3); LYMPH % 34.9 % (8-40); MCH 27.9 pg (25.7-33.7); MCHC 33.7 g/dl (32.0-36.0); MEAN CELL VOLUME 82.8 fl (80-96); MEAN PLT VOLUME 7.1 fl (7.5-11.1); MONO % 8.6 % (3.8-10.2); NEUT % 51.2 % (42.8-82.8); PLATELET COUNT 218 K/MM3 (134-434); RBC 4.13 M/mm3 (3.60-5.2); RDW 14.1 % (11.6-15.6); WHITE BLOOD COUNT 5.3 K/mm3 (4.0-10.0)
[2020-03-28 08:30] LABS: ALBUMIN 3.4 g/dl (3.4-5.0); BILIRUBIN,TOTAL 0.5 mg/dL (0.2-1); BLOOD UREA NITROGEN 11.3 mg/dL (7-18); CALCIUM 8.5 mg/dL (8.5-10.1); CREATININE 0.6 mg/dL (0.55-1.3); MAGNESIUM 2.2 mg/dL (1.8-2.4); POTASSIUM 3.2 mmol/L (3.5-5.1)
[2020-03-28] MEDS ORDERED: POTASSIUM CHLORIDE TABS 20 MEQ TABLET.ER (FP) PO ONE ×2 (09:16→22:18)
[2020-03-28] MEDS: POTASSIUM CHLORIDE TABS 20 MEQ TABLET.ER (FP) PO SCH (10:02)
[2020-03-28] MEDS: LACTOBACILLUS ACIDOPHILUS 1 TABLET PO SCH (10:02)
[2020-03-28] MEDS: ASCORBIC ACID 500 MG TABLET (FP) PO SCH ×2 (10:02→22:46)
[2020-03-28] MEDS: DEXTROSE 5%-0.45% SALINE 1,000 ML IV SCH ×2 (10:03→22:46)
[2020-03-28] MEDS: ACETAMINOPHEN 325 MG TABLET (FP) PO PRN ×3 (10:04→22:52)
[2020-03-28] MEDS ORDERED: PT OWN MED DRAWER 7, Y5N ONE (10:07)
[2020-03-28] MEDS: MULTIVIT-MINERALS ORAL LIQUID PO SCH (10:08)
--- NOTE | 2020-03-28 10:44 | EKG ---
Test Reason : Blood Pressure : / mmHG Vent. Rate : 082 BPM Atrial Rate : 082 BPM P-R Int : 146 ms QRS Dur : 084 ms QT Int : 386 ms P-R-T Axes : 122 135 141 degrees QTc Int : 450 ms LIMB LEAD REVERSAL NORMAL SINUS RHYTHM RIGHT AXIS DEVIATION NONSPECIFIC ST ABNORMALITY ABNORMAL ECG WHEN COMPARED WITH ECG OF 26-FEB-2020 01:50, QRS AXIS SHIFTED RIGHT Confirmed by MD AGUSTÍN, BEATRIZ ([id number]) on 03/28/2020 10:44:10 AM Referred By: Confirmed By:BEATRIZ RANDOLPH MD
--- NOTE | 2020-03-28 13:36 | PN ---
Physical Exam: SUBJECTIVE: Patient seen and examined at the bedside. having mild left flank pain. OBJECTIVE: Patient is a 54 year old female with a significant past medical history of renal calculi, hematuria, s/p ureteral stent, SVT, hypokalemia, asthma. On last admission Feb 2019 patient had urosepsis, hydronephrosis with Left jj stent insertion. She presents to the ED on 03/24/2020 with left flank pain. imaging: abd/pelvis ct 03/24/2020: in comparison of ct 02/25/2020: interval insertion of left nephro/ureteral stent is noted which appears unremarkable in position. mild to moderate left hydronephrsis which appears mildly increased since previous exam, ?possible stent occlusion. no ureteral or urinary bladder calculus noted. note is made of 0.3cm on left renal and 0.2cm right renal non obstructing calculi. Vital Signs Period Temp Pulse Resp BP Sys/Gifford Pulse Ox Last 24 Hr 97.7 F-98.6 F 73-80 20-20 123-157/81-93 98-100 = GENERAL: The patient is awake, alert, and fully oriented, in no acute distress. HEAD: Normal with no signs of trauma. EYES: PERRL, extraocular movements intact, sclera anicteric, conjunctiva clear. No ptosis. ENT: Ears normal, nares patent, oropharynx clear without exudates, moist mucous membranes. NECK: Trachea midline, full range of motion, supple. LUNGS: Breath sounds equal, clear to auscultation bilaterally, no wheezes HEART: Regular rate and rhythm ABDOMEN: Soft, nontender, nondistended, normoactive bowel sounds EXTREMITIES: 2+ pulses, warm, well-perfused, no edema. NEUROLOGICAL: Cranial nerves II through XII grossly intact. Normal speech PSYCH: Normal mood, normal affect. SKIN: Warm, dry, normal turgor, no rashes or lesions noted Laboratory Results - last 24 hr 03/28/20 03/28/20 06:35 06:35 WBC 5.3 RBC 4.13 Hgb 11.5 Hct 34.2 MCV 82.8 MCH 27.9 MCHC 33.7 RDW 14.1 Plt Count 218 MPV 7.1 L Absolute Neuts (auto) 2.7 Neutrophils % 51.2 Lymphocytes % 34.9 Monocytes % 8.6 Eosinophils % 4.8 H Basophils % 0.5 Nucleated RBC % 0 Sodium 142 Potassium 3.2 L Chloride 109 H Carbon Dioxide 29 Anion Gap 5 L BUN 11.3 Creatinine 0.6 Est GFR (CKD-EPI)AfAm 118.09 Est GFR (CKD-EPI)NonAf 101.89 Random Glucose 92 Calcium 8.5 Magnesium 2.2 Total Bilirubin 0.5 AST 12 L ALT 15 Alkaline Phosphatase 63 Total Protein 6.0 L Albumin 3.4 Active Medications Generic Name Dose Route Start Last Admin Trade Name Freq PRN Reason Stop Dose Admin Acetaminophen 650 mg 03/28/20 09:16 03/28/20 10:04 Tylenol - PO 650 mg Q6H PRN Administration PAIN LEVEL 6-10 Albuterol Sulfate 2 puff 03/25/20 06:33 Ventolin Hfa Inhaler - IH Q4H PRN SHORT OF BREATH/WHEEZING Ascorbic Acid 500 mg 03/26/20 13:00 03/28/20 10:02 Vitamin C - PO 500 mg BID IBETH Administration Diphenhydramine HCl 25 mg 03/26/20 12:51 03/27/20 23:17 Benadryl - PO 25 mg HS PRN Administration INSOMNIA Dextrose/Sodium Chloride 1,000 mls @ 100 mls/hr 03/24/20 22:15 03/28/20 10:03 D5-1/2ns - IV 100 mls/hr ASDIR IBETH Administration Ketorolac Tromethamine 15 mg 03/25/20 19:16 03/26/20 17:19 Toradol Injection - IM 03/30/20 19:15 15 mg Q6H PRN Administration PAIN LEVEL 4 - 6 Lactobacillus Acidophilus 1 tab 03/26/20 13:00 03/28/20 10:02 Bacid - PO 1 tab DAILY IBETH Administration Multivitamins/Minerals 15 ml 03/27/20 10:00 03/28/20 10:08 Certavite-Antioxidant Liquid PO 15 ml DAILY IBETH Administration Potassium Chloride 40 meq 03/27/20 10:00 03/28/20 10:02 K-Dur - PO Not Given DAILY IBETH ASSESSMENT/PLAN: Problem List - Problems (1) Complicated UTI (urinary tract infection) Assessment/Plan: patient with left hydronephrosis seen on imaging with possible stent occlusion Patient reports symptoms improved and urine more clear Per ID, monitor off antibiotics continue IV hydration pain managmement as needed but patient reports pain improving Urology to follow up (see Dr. Hawley) Repeat u/s since left flank pain persists Code(s): N39.0 - URINARY TRACT INFECTION, SITE NOT SPECIFIED (2) Flank pain Code(s): R10.9 - UNSPECIFIED ABDOMINAL PAIN (3) Hydronephrosis Code(s): N13.30 - UNSPECIFIED HYDRONEPHROSIS Qualifiers: Hydronephrosis type: unspecified Qualified Code(s): N13.30 - Unspecified hydronephrosis (4) UTI (urinary tract infection) Code(s): N39.0 - URINARY TRACT INFECTION, SITE NOT SPECIFIED Qualifiers: Urinary tract infection type: site unspecified Hematuria presence: with hematuria Qualified Code(s): N39.0 - Urinary tract infection, site not specified; R31.9 - Hematuria, unspecified (5) S/P ureteral stent placement Code(s): Z96.0 - PRESENCE OF UROGENITAL IMPLANTS Visit type - Emergency Visit Emergency Visit: Yes ED Registration Date: 03/24/20 Care time: The patient presented to the Emergency Department on the above date and was hospitalized for further evaluation of their emergent condition. - New Patient This patient is new to me today: No - Critical Care Critical Care patient: No - Discharge Referral Referred to [facility] Med P.C.: No
[2020-03-28] MEDS ORDERED: PIPERACILLIN/TAZOB 3.375 GM 3.375 GM in DEXTROSE 5%-WATER - 50 ML IVPB ONE (17:05)
[2020-03-28 19:15] LABS: EPI CELLS >36 /uL (0-25.1); HYALINE CASTS 6 /uL (0-3.1); PH,URINE 5.5 (5.0-8.0); URINE APPEARANCE CLOUDY; URINE BACTERIA 35 /uL (0-1359); URINE BILIRUBIN NEGATIVE (NEGATIVE); URINE COLOR YELLOW; URINE GLUCOSE (UA) NEGATIVE (NEGATIVE); URINE KETONE NEGATIVE (NEGATIVE); URINE LEUK ESTERASE 2+ (NEGATIVE); URINE NITRITE NEGATIVE (NEGATIVE); URINE PROTEIN 1+ (NEGATIVE); URINE RBC 798 /uL (0-23.9); URINE UROBILINOGEN 0.2 mg/dL (0.2-1.0); URINE WBC 125 /uL (0-25.8)
[2020-03-28 20:08] LABS: HEP B CORE AB, TOT Negative (Negative)
[2020-03-28] MEDS: diphenhydrAMINE HCL 25 MG CAPSULE (FP) PO PRN (22:46)
[2020-03-29] MEDS: ACETAMINOPHEN 325 MG TABLET (FP) PO PRN (06:21)
[2020-03-29] MEDS: DEXTROSE 5%-0.45% SALINE 1,000 ML IV SCH ×2 (07:30→21:21)
[2020-03-29 08:01] LABS: BASO % 0.9 % (0-2.0); EOS % 4.4 % (0-4.5); HEMATOCRIT 36.4 % (32.4-45.2); HEMOGLOBIN 12.2 GM/dL (10.7-15.3); LYMPH % 36.5 % (8-40); MCHC 33.5 g/dl (32.0-36.0); MEAN CELL VOLUME 83.8 fl (80-96); MEAN PLT VOLUME 7.3 fl (7.5-11.1); MONO % 7.4 % (3.8-10.2); NEUT % 50.8 % (42.8-82.8); PLATELET COUNT 241 K/MM3 (134-434); RBC 4.35 M/mm3 (3.60-5.2); RDW 14.1 % (11.6-15.6); WHITE BLOOD COUNT 5.1 K/mm3 (4.0-10.0)
[2020-03-29 08:41] LABS: POTASSIUM 3.7 mmol/L (3.5-5.1)
[2020-03-29 09:03] LABS: ALBUMIN 3.6 g/dl (3.4-5.0); BILIRUBIN,TOTAL 0.3 mg/dL (0.2-1); BLOOD UREA NITROGEN 12.8 mg/dL (7-18); CALCIUM 8.4 mg/dL (8.5-10.1); CREATININE 0.6 mg/dL (0.55-1.3); MAGNESIUM 2.6 mg/dL (1.8-2.4); TOT PROT 6.5 g/dl (6.4-8.2)
[2020-03-29] MEDS ORDERED: PT OWN MED DRAWER 7, Y5N ONE ×3 (09:09→21:20)
[2020-03-29] MEDS: MULTIVIT-MINERALS ORAL LIQUID PO SCH (09:13)
[2020-03-29] MEDS: ASCORBIC ACID 500 MG TABLET (FP) PO SCH ×2 (09:14→21:21)
[2020-03-29] MEDS: LACTOBACILLUS ACIDOPHILUS 1 TABLET PO SCH (09:14)
[2020-03-29] MEDS: POTASSIUM CHLORIDE TABS 20 MEQ TABLET.ER (FP) PO SCH (09:16)
--- NOTE | 2020-03-29 09:30 | PN ---
Progress Note, Physician History of Present Illness: patient is upset that she is not getting abx all cx have been negative patient has been afebrile wbc has been normal sonogram does not show any specific findings - Current Medication List Current Medications: Active Medications Acetaminophen (Tylenol -) 650 mg PO Q6H PRN PRN Reason: PAIN LEVEL 6-10 Last Admin: 03/29/20 06:21 Dose: 650 mg Documented by: Albuterol Sulfate (Ventolin Hfa Inhaler -) 2 puff IH Q4H PRN PRN Reason: SHORT OF BREATH/WHEEZING Ascorbic Acid (Vitamin C -) 500 mg PO BID [facility] Last Admin: 03/29/20 09:14 Dose: 500 mg Documented by: Diphenhydramine HCl (Benadryl -) 25 mg PO HS PRN PRN Reason: INSOMNIA Last Admin: 03/28/20 22:46 Dose: 25 mg Documented by: Dextrose/Sodium Chloride (D5-1/2ns -) 1,000 mls @ 100 mls/hr IV ASDIR [facility] Last Admin: 03/29/20 07:30 Dose: 100 mls/hr Documented by: Ketorolac Tromethamine (Toradol Injection -) 15 mg IM Q6H PRN PRN Reason: PAIN LEVEL 4 - 6 Stop: 03/30/20 19:15 Last Admin: 03/26/20 17:19 Dose: 15 mg Documented by: Lactobacillus Acidophilus (Bacid -) 1 tab PO DAILY [facility] Last Admin: 03/29/20 09:14 Dose: 1 tab Documented by: Multivitamins/Minerals (Certavite-Antioxidant Liquid) 15 ml PO DAILY [facility] Last Admin: 03/29/20 09:13 Dose: 15 ml Documented by: Potassium Chloride (K-Dur -) 40 meq PO DAILY [facility] Last Admin: 03/29/20 09:16 Dose: 40 meq Documented by: - Objective Vital Signs: Vital Signs Temperature 98.1 F 03/29/20 06:50 Pulse Rate 75 03/29/20 06:50 Respiratory Rate 03/29/20 06:50 Blood Pressure 139/78 03/29/20 06:50 O2 Sat by Pulse Oximetry (%) 96 03/29/20 06:50 Constitutional: Yes: No Distress, Calm Cardiovascular: Yes: S1, S2 Respiratory: Yes: Regular, CTA Bilaterally Gastrointestinal: Yes: Normal Bowel Sounds, Soft Musculoskeletal: Yes: WNL Extremities: Yes: WNL Neurological: Yes: Alert, Oriented Psychiatric: Yes: Alert, Oriented Labs: CBC, BMP 03/29/20 06:45 03/29/20 06:45 INR, PTT INR 0.97 (0.83-1.09) 03/25/20 05:56 Assessment/Plan Problem List - Problems (1) Complicated UTI (urinary tract infection) Code(s): N39.0 - URINARY TRACT INFECTION, SITE NOT SPECIFIED (2) Hydronephrosis Code(s): N13.30 - UNSPECIFIED HYDRONEPHROSIS (3) Ureteral stent occlusion Code(s): T83.192A - [facility] COMPL OF INDWELLING URETERAL STENT, INITIAL ENCOUNTER (4) Renal calculus Code(s): N20.0 - CALCULUS OF KIDNEY (5) S/P ureteral stent placement Code(s): Z96.0 - PRESENCE OF UROGENITAL IMPLANTS Assessment/Plan continue to monitor off of abx u/s noted all results noted rest as per the team
--- NOTE | 2020-03-29 12:50 | PN ---
DATE OF VISIT: 03/29/2020 HISTORY: Patient is a 54-year-old female with history of nephrolithiasis. She recently underwent a left ureteroscopic laser lithotripsy with placement of a left JJ stent. She has a history of urosepsis and hydronephrosis. She presented to the emergency room on March 24, 2020, complaining of left flank pain, grossly bloody urine, dysuria. She also had some nausea. Denies fever, chills or vomiting. A CT scan revealed a left JJ stent to be in its proper position, but the hydronephrosis is more significant on the left. There were also bilateral renal stones. PAST MEDICAL & SURGICAL HISTORY: She does have a history of SVT as well as asthma, also has cholelithiasis. She gets recurrent urinary tract infections. She has undergone a , a hysterectomy and tubal ligation in the past. SOCIAL HISTORY: She denies ethanol or tobacco use. ALLERGIES: She is allergic to POLYETHYLENE GLYCOL, LATEX, LIDOCAINE, PAPRIKA, PEANUTS, ORANGES, PROCAINE, SHELLFISH, APPLE CIDER VINEGAR. LABORATORY: Presently her BUN is 15 and creatinine 0.7. Her urine culture and sensitivity revealed normal urogenital vern. Her latest white count is 5100. Hemoglobin is 12.2 and hematocrit 36.4. IMPRESSION AT PRESENT: A 54-year-old female with bilateral nephrolithiasis, history of recurrent urinary tract infections, status post left JJ stent, possible stent obstruction. Because of increased hydronephrosis as well as left flank pain will recommend a change of her left JJ stent and elective outpatient extracorporeal shock wave lithotripsies in the future. Williams [id number]
--- NOTE | 2020-03-29 16:11 | PN ---
Physical Exam: SUBJECTIVE: Patient seen and examined Patient is a 54 year old female with a significant past medical history of renal calculi, hematuria, s/p ureteral stent, SVT, hypokalemia, asthma. On last admission Feb 2019 patient had urosepsis, hydronephrosis with Left jj stent insertion. She presents to the ED on 03/24/2020 with left flank pain. imaging: abd/pelvis ct 03/24/2020: in comparison of ct 02/25/2020: interval insertion of left nephro/ureteral stent is noted which appears unremarkable in position. mild to moderate left hydronephrsis which appears mildly increased since previous exam, ?possible stent occlusion. no ureteral or urinary bladder calculus noted. note is made of 0.3cm on left renal and 0.2cm right renal non obstructing calculi. per urology, patient for a nuclear scan tomorrow to further evaluate stent. Vital Signs Period Temp Pulse Resp BP Sys/Gifford Pulse Ox Last 24 Hr 97.4 F-98.7 F 75-95 20-20 118-139/71-90 95-98 GENERAL: The patient is awake, alert, and fully oriented, in no acute distress. HEAD: Normal with no signs of trauma. EYES: PERRL, extraocular movements intact, sclera anicteric, conjunctiva clear. No ptosis. ENT: Ears normal, nares patent, oropharynx clear without exudates, moist mucous membranes. NECK: Trachea midline, full range of motion, supple. LUNGS: Breath sounds equal, clear to auscultation bilaterally, no wheezes HEART: Regular rate and rhythm ABDOMEN: Soft, nontender, nondistended, normoactive bowel sounds EXTREMITIES: 2+ pulses, warm, well-perfused, no edema. NEUROLOGICAL: Cranial nerves II through XII grossly intact. Normal speech PSYCH: Normal mood, normal affect. SKIN: Warm, dry, normal turgor, no rashes or lesions noted Laboratory Results - last 24 hr 03/27/20 03/28/20 03/29/20 06:40 18:45 06:45 WBC 5.1 RBC 4.35 Hgb 12.2 Hct 36.4 MCV 83.8 MCH 28.0 MCHC 33.5 RDW 14.1 Plt Count 241 MPV 7.3 L Absolute Neuts (auto) 2.6 Neutrophils % 50.8 Lymphocytes % 36.5 Monocytes % 7.4 Eosinophils % 4.4 Basophils % 0.9 Nucleated RBC % 0 Sodium Potassium Chloride Carbon Dioxide Anion Gap BUN Creatinine Est GFR (CKD-EPI)AfAm Est GFR (CKD-EPI)NonAf Random Glucose Calcium Magnesium Total Bilirubin AST ALT Alkaline Phosphatase Total Protein Albumin Urine Color Yellow Urine Appearance Cloudy Urine pH 5.5 Ur Specific [place] 1.019 Urine Protein 1+ H Urine Glucose (UA) Negative Urine Ketones Negative Urine Blood 3+ H Urine Nitrite Negative Urine Bilirubin Negative Urine Urobilinogen 0.2 Ur Leukocyte Esterase 2+ H Urine WBC (Auto) 125 Urine RBC (Auto) 798 Urine Casts (Auto) 6 U Pathogenic Cast Auto None seen U Epithel Cells (Auto) >36 U Sm Round Cell (Auto) Moderate Urine Bacteria (Auto) 35 Hep A IgM Ab Confirm Negative Hepatitis A Ab Total Negative Hep Bs Antigen Negative Hep Bs Antibody Non reactive Hep B Core Total Ab Negative Hep B Core IgM Ab Negative Hepatitis Be Antibody Negative Hepatitis Be Antigen Negative 03/29/20 06:45 WBC RBC Hgb Hct MCV MCH MCHC RDW Plt Count MPV Absolute Neuts (auto) Neutrophils % Lymphocytes % Monocytes % Eosinophils % Basophils % Nucleated RBC % Sodium 143 Potassium 3.7 Chloride 109 H Carbon Dioxide 27 Anion Gap 7 L BUN 12.8 Creatinine 0.6 Est GFR (CKD-EPI)AfAm 118.09 Est GFR (CKD-EPI)NonAf 101.89 Random Glucose 106 Calcium 8.4 L Magnesium 2.6 H Total Bilirubin 0.3 AST 14 L ALT 19 Alkaline Phosphatase 74 Total Protein 6.5 Albumin 3.6 Urine Color Urine Appearance Urine pH Ur Specific [place] Urine Protein Urine Glucose (UA) Urine Ketones Urine Blood Urine Nitrite Urine Bilirubin Urine Urobilinogen Ur Leukocyte Esterase Urine WBC (Auto) Urine RBC (Auto) Urine Casts (Auto) U Pathogenic Cast Auto U Epithel Cells (Auto) U Sm Round Cell (Auto) Urine Bacteria (Auto) Hep A IgM Ab Confirm Hepatitis A Ab Total Hep Bs Antigen Hep Bs Antibody Hep B Core Total Ab Hep B Core IgM Ab Hepatitis Be Antibody Hepatitis Be Antigen Active Medications Generic Name Dose Route Start Last Admin Trade Name Freq PRN Reason Stop Dose Admin Acetaminophen 650 mg 03/28/20 09:16 03/29/20 06:21 Tylenol - PO 650 mg Q6H PRN Administration PAIN LEVEL 6-10 Albuterol Sulfate 2 puff 03/25/20 06:33 Ventolin Hfa Inhaler - IH Q4H PRN SHORT OF BREATH/WHEEZING Ascorbic Acid 500 mg 03/26/20 13:00 03/29/20 09:14 Vitamin C - PO 500 mg BID IBETH Administration Diphenhydramine HCl 25 mg 03/26/20 12:51 03/28/20 22:46 Benadryl - PO 25 mg HS PRN Administration INSOMNIA Dextrose/Sodium Chloride 1,000 mls @ 100 mls/hr 03/24/20 22:15 03/29/20 07:30 D5-1/2ns - IV 100 mls/hr ASDIR IBETH Administration Ketorolac Tromethamine 15 mg 03/25/20 19:16 03/26/20 17:19 Toradol Injection - IM 03/30/20 19:15 15 mg Q6H PRN Administration PAIN LEVEL 4 - 6 Lactobacillus Acidophilus 1 tab 03/26/20 13:00 03/29/20 09:14 Bacid - PO 1 tab DAILY IBETH Administration Levofloxacin 500 mg 03/29/20 16:00 Levaquin - PO DAILY IBETH Miconazole Nitrate 1 applic 03/29/20 22:00 Monistat Topical Cream - TP BID [facility] Miconazole Nitrate 100 mg 03/29/20 22:00 Monistat-7 Vaginal Suppository - PV HS [facility] Multivitamins/Minerals 15 ml 03/27/20 10:00 03/29/20 09:13 Certavite-Antioxidant Liquid PO 15 ml DAILY IBETH Administration Potassium Chloride 40 meq 03/27/20 10:00 03/29/20 09:16 K-Dur - PO 40 meq DAILY IBETH Administration ASSESSMENT/PLAN: Problem List - Problems (1) Complicated UTI (urinary tract infection) Assessment/Plan: patient with left hydronephrosis seen on imaging with possible stent occlusion Patient reports symptoms improved and urine more clear but still with some mild flank pain. Per ID, monitor off antibiotics discussed with urologist who recommended Levaquin 500mg daily x 10 days. patient for a renal NM scan tomorrow to further evaluate stent. pain managmement as needed but patient reports pain improving Code(s): N39.0 - URINARY TRACT INFECTION, SITE NOT SPECIFIED (2) Flank pain Assessment/Plan: improving, for renal scan tomorrow start on levaquin Code(s): R10.9 - UNSPECIFIED ABDOMINAL PAIN (3) Hydronephrosis Assessment/Plan: renal ultrasound 03/28/2020 shows a tiny non obstructing right renal stone. small non obstructing left renal lobe pole stone and mild to moderate left renal hydronephrosis with a stent identified. there is suggestion of hepatomegaly Code(s): N13.30 - UNSPECIFIED HYDRONEPHROSIS Qualifiers: Hydronephrosis type: unspecified Qualified Code(s): N13.30 - Unspecified hydronephrosis (4) UTI (urinary tract infection) Code(s): N39.0 - URINARY TRACT INFECTION, SITE NOT SPECIFIED Qualifiers: Urinary tract infection type: site unspecified Hematuria presence: with hematuria Qualified Code(s): N39.0 - Urinary tract infection, site not specified; R31.9 - Hematuria, unspecified (5) S/P ureteral stent placement Code(s): Z96.0 - PRESENCE OF UROGENITAL IMPLANTS (6) DVT prophylaxis Assessment/Plan: SCDs, ambulation Code(s): Z29.9 - ENCOUNTER FOR PROPHYLACTIC MEASURES, UNSPECIFIED Visit type - Emergency Visit Emergency Visit: Yes ED Registration Date: 03/24/20 Care time: The patient presented to the Emergency Department on the above date and was hospitalized for further evaluation of their emergent condition. - New Patient This patient is new to me today: No - Critical Care Critical Care patient: No - Discharge Referral Referred to [facility] No
[2020-03-29] MEDS ORDERED: ACETAMINOPHEN 500 MG TABLET (FP) PO ONE (17:17)
[2020-03-29 20:06] VITALS: BP 161/95; PULSE 87; TEMP 98.5
[2020-03-29] MEDS ORDERED: MICONAZOLE NITRATE 14 GM/TUBE TUBE TP SCH (22:00)
[2020-03-29] MEDS ORDERED: MICONAZOLE NITRATE 200 MG VAGINAL SUPPOSITORY PV SCH (22:00)
--- NOTE | 2020-03-30 01:50 | HOSP ---
Subjective - Review of Symptoms Events since last encounter: Hospitalist Encounter Was microblogged by the RN that the patient wants to sign out AMA, was asked to assess. When I arrived to the unit, I was told that the patient left. Will inform the daytime provider of today's events. Physical Examination Vital Signs: Vital Signs Temperature 98.5 F 03/29/20 20:05 Pulse Rate 87 03/29/20 20:05 Respiratory Rate 20 03/29/20 20:11 Blood Pressure 161/95 03/29/20 20:05 O2 Sat by Pulse Oximetry (%) 100 03/29/20 20:11 Labs: CBC, BMP 03/29/20 06:45 03/29/20 06:45 Hospitalist Encounter Assessment: This is a 54 y/o female admitted for Ureteral Stent Occlusion, Complicated UTI, Hydronephrosis
--- NOTE | 2020-03-30 08:12 | DS ---
Physical Exam: SUBJECTIVE: Patient seen and examined OBJECTIVE: informed by night team that patient left AMA at apx 0400a.m. Vital Signs Period Temp Pulse Resp BP Sys/Gifford Pulse Ox Last 24 Hr 98.5 F-99 F 87-95 20-20 118-161/76-95 95-100 PHYSICAL EXAM GENERAL: unable to perform PE as patient left AMA Patient has capacity to make her own medical decision LABS Laboratory Results - last 24 hr 03/29/20 03/29/20 06:45 06:45 WBC 5.1 RBC 4.35 Hgb 12.2 Hct 36.4 MCV 83.8 MCH 28.0 MCHC 33.5 RDW 14.1 Plt Count 241 MPV 7.3 L Absolute Neuts (auto) 2.6 Neutrophils % 50.8 Lymphocytes % 36.5 Monocytes % 7.4 Eosinophils % 4.4 Basophils % 0.9 Nucleated RBC % 0 Sodium 143 Potassium 3.7 Chloride 109 H Carbon Dioxide 27 Anion Gap 7 L BUN 12.8 Creatinine 0.6 Est GFR (CKD-EPI)AfAm 118.09 Est GFR (CKD-EPI)NonAf 101.89 Random Glucose 106 Calcium 8.4 L Magnesium 2.6 H Total Bilirubin 0.3 AST 14 L ALT 19 Alkaline Phosphatase 74 Total Protein 6.5 Albumin 3.6 HOSPITAL COURSE: Date of Admission:03/24/20 Date of Discharge: 03/30/20 Patient left AMA Minutes to complete discharge: 45 Discharge Summary Problems reviewed: Yes Reason For Visit: UTI,STATUS POST PLACEMETN OF URETERAL STENT Current Active Problems Asthma (Acute) Complicated UTI (urinary tract infection) (Acute) DVT prophylaxis (Acute) Encounter for screening laboratory testing for COVID-19 virus (Acute) Flank pain (Acute) Hydronephrosis (Acute) UTI (urinary tract infection) (Acute) Ureteral stent occlusion (Acute) Condition: Guarded - Instructions Disposition: AGAINST MEDICAL ADVICE - Home Medications Comprehensive Discharge Medication List: Ambulatory Orders Diphenhydramine HCl [Benadryl Capsule -] 25 mg PO HS 06/06/17 Albuterol Sulfate Inhaler - [Ventolin HFA Inhaler -] 1 - 2 inh PO QID PRN 02/28/19 Albuterol 0.083% Nebulizer Maddie [Ventolin 0.083% Nebulizer Soln -] 1 amp NEB DAILY PRN 05/10/19 Famotidine [Pepcid] 20 mg PO BID 05/10/19 Amox-Tr/K Cl [Augmentin 875-125mg Tablet -] 1 tab PO BID@0800,1730 10 Days #20 tablet 02/28/20 Lactobacillus Acidophilus [Bacid -] 1 each PO TID 14 Days #42 capsule 02/28/20 Potassium Chloride [K-Dur -] 20 meq PO DAILY tablet.er 02/28/20 Problem List - Problems (1) Complicated UTI (urinary tract infection) Code(s): N39.0 - URINARY TRACT INFECTION, SITE NOT SPECIFIED (2) Flank pain Code(s): R10.9 - UNSPECIFIED ABDOMINAL PAIN (3) Hydronephrosis Code(s): N13.30 - UNSPECIFIED HYDRONEPHROSIS Qualifiers: Hydronephrosis type: unspecified Qualified Code(s): N13.30 - Unspecified hydronephrosis (4) UTI (urinary tract infection) Code(s): N39.0 - URINARY TRACT INFECTION, SITE NOT SPECIFIED Qualifiers: Urinary tract infection type: site unspecified Hematuria presence: with hematuria Qualified Code(s): N39.0 - Urinary tract infection, site not specified; R31.9 - Hematuria, unspecified (5) S/P ureteral stent placement Code(s): Z96.0 - PRESENCE OF UROGENITAL IMPLANTS (6) DVT prophylaxis Code(s): Z29.9 - ENCOUNTER FOR PROPHYLACTIC MEASURES, UNSPECIFIED This patient is new to me today: No Emergency Visit: Yes ED Registration Date: 03/24/20 Care time: The patient presented to the Emergency Department on the above date and was hospitalized for further evaluation of their emergent condition. Critical Care patient: No - Discharge Referral Referred to [facility] No
== END 2020-03-30 08:14 | disposition left against medical advice (07) | DRG 466 ==
LOC: JER 13:21 → JERBED 21:45 → J8W 03-25 16:53
PROVIDERS: ADMIT Internal Medicine; ATTEND Nurse Practitioner Family
DX: T83.192A Other mechanical complication of indwelling ureteral stent, initial encounter (principal); N13.6 Pyonephrosis; J45.909 Unspecified asthma, uncomplicated; F41.8 Other specified anxiety disorders; N83.201 Unspecified ovarian cyst, right side; Y83.8 Other surgical procedures as the cause of abnormal reaction of the patient, or of later complication, without mention of misadventure at the time of the procedure; R10.9 Unspecified abdominal pain; Z11.59 Encounter for screening for other viral diseases; E87.6 Hypokalemia
CPT/HCPCS: 36415; 71046-TC-FY; 74176-TC; 76775-TC; 80053; 81003; 83735; 85025; 85610; 86704; 86706; 86707; 86708; 86709; 87086; 87340; 93005; 93010; 99285-25; J0131; U0003

== ENCOUNTER 2020-04-06 14:40 | Emergency (ER) | payer OTHER ==
[2020-04-06 15:06] VITALS: BP 136/84; PULSE 98; TEMP 98.4; BMI 33.6
--- NOTE | 2020-04-06 16:22 | PDOC ---
History of Present Illness - General Chief Complaint: Pain Stated Complaint: BLEEDING/BACK PAIN Time Seen by Provider: 04/06/20 15:31 History Source: Patient Exam Limitations: Clinical Condition - History of Present Illness Initial Comments: 04/06/20 16:28 Patient with past medical history of left hydronephrosis and status post JJ stent with recent admission a week ago for worsening hydronephrosis and UTI and patient signing out AMA overnight presented with complaint of left flank pain similar to her symptoms from last week. Patient was in urologist office today for follow-up and reports she was waiting too long so she left the office and came to the emergency room. Patient was seen by urologist Dr. Hawley who placed a stent while admitted a month ago and was supposed to have the stent removed earlier on this month but has not been removed yet and was scheduled to be removed today. Denies fever, nausea, vomiting. Reported mild hematuria. Denies any other symptoms Is this a multiple visit Asthma Patient?: No Past History - Medical History Allergies/Adverse Reactions: Allergies Allergy/AdvReac Type Severity Reaction Status Date / Time polyethylene glycol Allergy Severe Difficulty Verified 04/06/20 16:12 Breathing latex Allergy Mild Verified 04/06/20 16:12 lidocaine Allergy Verified 04/06/20 16:12 orange Allergy Verified 04/06/20 16:12 paprika Allergy Verified 04/06/20 16:12 peanut Allergy Difficulty Verified 04/06/20 16:12 Breathing procaine HCl [From Novocain] Allergy Verified 04/06/20 16:12 shellfish derived Allergy Hives Verified 04/06/20 16:12 apple cider vinegar Allergy Intermediate Difficulty Uncoded 04/06/20 16:12 Breathing POLYURETHANE Allergy Intermediate Swelling Uncoded 04/06/20 16:12 shrimp Allergy Intermediate Hives Uncoded 04/06/20 16:12 apple Allergy Uncoded 04/06/20 16:12 cheese Allergy Uncoded 04/06/20 16:12 jalapeno Allergy Uncoded 04/06/20 16:12 lactose Allergy Uncoded 04/06/20 16:12 Home Medications: Ambulatory Orders Diphenhydramine HCl [Benadryl Capsule -] 25 mg PO HS 06/06/17 Potassium Chloride [K-Dur -] 20 meq PO DAILY tablet.er 02/28/20 Anemia: (HYPOKALEMIA) Asthma: Yes Cardiac Disorders: Yes (SVT) COPD: No DVT: No GI Disorders: Yes (ulcer) Disorders: Yes (right ovarian cyst status post surgery, status post hysterectomy, still has) HTN: No Kidney Stones: (Kidney problems.) Psychiatric Problems: Yes (anxiety, depression) - Surgical History Abdominal Surgery: Yes (hysterectomy and right oophorectomy) - Immunization History Td Vaccination: No TDAP Vaccination: No Immunization Up to Date: Yes - Psycho-Social/Smoking History Smoking Status: No Smoking History: Never smoked Years of Tobacco Use: 0 Have you smoked in the past 12 months: No Number of Cigarettes Smoked Daily: 1 Cigars Per Day: 0 'Breaking Loose' booklet given: 05/10/19 Review of Systems - Review of Systems Able to Perform ROS?: Yes Is the patient limited Hebrew proficient: No Constitutional: No: Chills, Fever, Malaise HEENTM: No: Symptoms Reported, See HPI, Eye Pain, Blurred Vision, Tearing, Recent change in vision, Double Vision, Cataracts, Ear Pain, Ocular Prothesis, Ear Discharge, Nose Pain, Nose Congestion, Tinnitus, Nose Bleeding, Hearing Loss, Throat Pain, Throat Swelling, Mouth Pain, Dental Problems, Difficulty Swa llowing, Mouth Swelling, Other Respiratory: No: Symptoms reported, See HPI, Cough, Orthopnea, Shortness of Breath, SOB with Exertion, SOB at Rest, Stridor, Wheezing, Productive cough, Hemoptysis, Other Cardiac (ROS): No: Symptoms Reported, See HPI, Chest Pain, Edema, Irregular Heart Rate, Lightheadedness, Palpitations, Syncope, Chest Tightness, Other ABD/GI: No: Symptoms Reported, See HPI, Constipated, Diarrhea, Nausea, Vomiting : Yes: Symptoms Reported, See HPI, Flank Pain (left flank pain), Hematuria. No: Dysuria, Discharge Neurological: No: Headache, Dizziness All Other Systems: Reviewed and Negative *Physical Exam - Vital Signs Last Vital Signs Temp Pulse Resp BP Pulse Ox 98.4 F 98 H 18 136/84 98 04/06/20 14:50 04/06/20 14:50 04/06/20 14:50 04/06/20 14:50 04/06/20 14:50 - Physical Exam 04/06/20 16:32 GENERAL: Well developed, well nourished. Awake and alert. No acute distress. NECK: Supple. Full ROM. CARDIOVASCULAR: Regular rate and rhythm. No murmurs, rubs, or gallops. PULMONARY: No evidence of respiratory distress. Lungs clear to auscultation bilaterally. No wheezing, rales or rhonchi. ABDOMINAL: Soft. Moderate tenderness to left flank area. Non-distended. No rebound or guarding. No organomegaly. Normoactive bowel sounds. MUSCULOSKELETAL Normal range of motion at all joints. SKIN: Warm and dry. Normal capillary refill. No rashes. No jaundice. No cyanosis NEUROLOGICAL: Alert, awake, appropriate. Gait is normal without ataxia. PSYCHIATRIC: Cooperative. Good eye contact. Appropriate mood General Appearance: Yes: Nourished, Appropriately Dressed. No: Apparent Distress ED Treatment Course - RADIOLOGY Radiology Studies Ordered: Category Date Time Status KIDNEY / RENAL US [US] Stat Ultrasound 04/06/20 16:18 Ordered Medical Decision Making - Medical Decision Making 04/06/20 16:29 Patient with past medical history of left hydronephrosis and status post JJ stent with recent admission a week ago for worsening hydronephrosis and UTI and patient signing out AMA overnight presented with complaint of left flank pain similar to her symptoms from last week. Patient was in urologist office today for follow-up and reports she was waiting too long so she left the office and came to the emergency room. Patient was seen by urologist Dr. Hawley who placed a stent while admitted a month ago and was supposed to have the stent removed earlier on this month but has not been removed yet and was scheduled to be removed today. Denies fever, nausea, vomiting. Reported mild hematuria. Denies any other symptoms Exam significant for moderate tenderness left flank area otherwise with no acute findings. No tenderness rest of the abdomen. Patient in no acute distress. Patient afebrile. Call made to the urologist office Dr. Hawley who reported ready to see patient and has been calling patient as patient was supposed to wait in her car until called into the office. Office instruct to have patient come back to the office to be seen now by the urologist. Plan discussed with patient patient agrees to go back to urologist office across the street to be seen. Patient left department in no acute distress. Discharge - Discharge Information Problems reviewed: Yes Clinical Impression/Diagnosis: Ureteral calculus, S/P ureteral stent placement Hydronephrosis Qualifiers: Hydronephrosis type: unspecified Qualified Code(s): N13.30 - Unspecified hydronephrosis Condition: Stable Disposition: HOME - Admission No - Follow up/Referral Referrals: Rayna Mcqueen MD [Primary Care Provider] - Alyssa Hawley MD [Staff Physician] - - Patient Discharge Instructions Additional Instructions: Go to urologist Dr. Hawley office now as he is waiting for see you in the office now - Post Discharge Activity
== END 2020-04-06 16:41 | disposition home or self-care (01) ==
LOC: JER 14:40
DX: N20.1 Calculus of ureter (principal); N13.30 Unspecified hydronephrosis; Z96.0 Presence of urogenital implants
CPT/HCPCS: 99284-25

== ENCOUNTER 2020-10-24 18:30 | Emergency (ER) | payer OTHER ==
[2020-10-24 19:17] VITALS: BP 136/82; PULSE 98; TEMP 97.2; BMI 29.5
== END 2020-10-24 20:59 | disposition left against medical advice (07) ==
LOC: JER 18:30
DX: R55 Syncope and collapse (principal)
CPT/HCPCS: 99283-25; 99285-25

== ENCOUNTER 2021-03-01 15:48 | Emergency (ER) | payer OTHER ==
[2021-03-01 16:21] VITALS: BP 152/94; PULSE 80; TEMP 99.3; BMI 29.7
== END 2021-03-01 17:31 | disposition home or self-care (01) ==
LOC: FER 15:48
DX: R20.8 Other disturbances of skin sensation (principal)
CPT/HCPCS: 93971-TC; 99283-25

== ENCOUNTER 2021-04-23 22:28 | Emergency (ER) | payer OTHER ==
[2021-04-23 22:39] VITALS: BP 172/85; PULSE 92; TEMP 98.8; BMI 33.5
[2021-04-24] LABS: EPI CELLS 4 /uL (0-25.1); HYALINE CASTS 0 /uL (0-3.1); PH,URINE 6.5 (5.0-8.0); URINE APPEARANCE CLEAR; URINE BACTERIA 39 /uL (0-1359); URINE BILIRUBIN NEGATIVE (NEGATIVE); URINE COLOR YELLOW; URINE GLUCOSE (UA) NEGATIVE (NEGATIVE); URINE KETONE NEGATIVE (NEGATIVE); URINE LEUK ESTERASE TRACE (NEGATIVE); URINE NITRITE NEGATIVE (NEGATIVE); URINE PROTEIN NEGATIVE (NEGATIVE); URINE RBC 6 /uL (0-23.9); URINE UROBILINOGEN 0.2 mg/dL (0.2-1.0); URINE WBC 9 /uL (0-25.8)
[2021-04-24 00:59] LABS: BASO % 0.9 % (0-2.0); EOS % 2.2 % (0-4.5); HEMATOCRIT 37.3 % (32.4-45.2); HEMOGLOBIN 12.8 GM/dL (10.7-15.3); LYMPH % 20.7 % (8-40); MCH 28.4 pg (25.7-33.7); MCHC 34.3 g/dl (32.0-36.0); MEAN CELL VOLUME 82.8 fl (80-96); MEAN PLT VOLUME 7.1 fl (7.5-11.1); NEUT % 71.2 % (42.8-82.8); PLATELET COUNT 247 10^3/uL (134-434); RBC 4.51 M/mm3 (3.60-5.2); RDW 14.1 % (11.6-15.6); WHITE BLOOD COUNT 7.7 K/mm3 (4.0-10.0)
[2021-04-24 01:18] LABS: CHLORIDE 105 mmol/L (98-107); SODIUM 142 mmol/L (136-145)
[2021-04-24 01:20] LABS: CALCIUM 8.7 mg/dL (8.5-10.1)
[2021-04-24 01:21] LABS: ANION GAP 11 MMOL/L (8-16); BLOOD UREA NITROGEN 14.2 mg/dL (7-18); CO2 27 mmol/L (21-32)
[2021-04-24 01:24] LABS: CREATININE 0.6 mg/dL (0.55-1.3); SGOT/AST 16 U/L (15-37); SGPT/ALT 21 U/L (13-61)
[2021-04-24 01:25] LABS: BILIRUBIN,TOTAL 0.2 mg/dL (0.2-1); GLUCOSE,RANDOM 94 mg/dL (74-106)
[2021-04-24 01:26] LABS: TOT PROT 7.4 g/dl (6.4-8.2)
[2021-04-24 01:27] LABS: ALK PHOS 91 U/L (45-117)
== END 2021-04-24 02:04 ==
LOC: JER 22:28
DX: I10 Essential (primary) hypertension (principal)
CPT/HCPCS: 36415; 70450-TC; 71046-TC-FY; 80053; 81003; 84484; 85025; 87086; 93005; 93010; 99285-25

== ENCOUNTER 2021-05-05 19:03 | Emergency (ER) | payer OTHER ==
[2021-05-05 19:12] VITALS: BP 167/93; PULSE 88; TEMP 98.3; BMI 34.0
[2021-05-05 20:33] LABS: HEMATOCRIT 41.3 % (32.4-45.2); MCH 28.4 pg (25.7-33.7); MCHC 33.9 g/dl (32.0-36.0); MEAN CELL VOLUME 83.6 fl (80-96); MEAN PLT VOLUME 7.1 fl (7.5-11.1); PLATELET COUNT 284 10^3/uL (134-434); RBC 4.94 M/mm3 (3.60-5.2); RDW 14.3 % (11.6-15.6); WHITE BLOOD COUNT 7.8 K/mm3 (4.0-10.0)
== END 2021-05-05 21:39 | disposition home or self-care (01) ==
LOC: JER 19:03
DX: T58.91XA Toxic effect of carbon monoxide from unspecified source, accidental (unintentional), initial encounter (principal)
CPT/HCPCS: 36415; 82375; 85027; 93005; 93010; 99283-25

== ENCOUNTER 2021-05-15 18:33 | Emergency (ER) | payer OTHER ==
[2021-05-15 18:39] VITALS: BP 143/75; PULSE 101; TEMP 98.3; BMI 33.6
[2021-05-15 20:21] LABS: BASO % 0.7 % (0-2.0); EOS % 0.8 % (0-4.5); HEMATOCRIT 40.7 % (32.4-45.2); HEMOGLOBIN 13.6 GM/dL (10.7-15.3); LYMPH % 18.8 % (8-40); MCH 28.3 pg (25.7-33.7); MCHC 33.5 g/dl (32.0-36.0); MEAN CELL VOLUME 84.5 fl (80-96); MEAN PLT VOLUME 6.6 fl (7.5-11.1); MONO % 5.6 % (3.8-10.2); NEUT % 74.1 % (42.8-82.8); PLATELET COUNT 305 10^3/uL (134-434); RBC 4.82 M/mm3 (3.60-5.2); WHITE BLOOD COUNT 11.6 K/mm3 (4.0-10.0)
[2021-05-15 20:42] LABS: CALCIUM 8.8 mg/dL (8.5-10.1)
[2021-05-15 20:43] LABS: ALBUMIN 3.8 g/dl (3.4-5.0); BLOOD UREA NITROGEN 15.9 mg/dL (7-18)
[2021-05-15 20:47] LABS: BILIRUBIN,TOTAL 0.2 mg/dL (0.2-1); TOT PROT 7.3 g/dl (6.4-8.2)
[2021-05-15 21:45] LABS: EPI CELLS 21 /uL (0-25.1); HYALINE CASTS 3 /uL (0-3.1); URINE APPEARANCE CLEAR; URINE BACTERIA 521 /uL (0-1359); URINE BILIRUBIN NEGATIVE (NEGATIVE); URINE COLOR YELLOW; URINE GLUCOSE (UA) NEGATIVE (NEGATIVE); URINE KETONE NEGATIVE (NEGATIVE); URINE LEUK ESTERASE 2+ (NEGATIVE); URINE NITRITE NEGATIVE (NEGATIVE); URINE PROTEIN NEGATIVE (NEGATIVE); URINE RBC 10 /uL (0-23.9); URINE UROBILINOGEN 0.2 mg/dL (0.2-1.0); URINE WBC 193 /uL (0-25.8)
== END 2021-05-15 23:20 | disposition home or self-care (01) ==
LOC: JER 18:33
DX: R10.9 Unspecified abdominal pain (principal); N10 Acute pyelonephritis
CPT/HCPCS: 36415; 74176-TC; 80053; 81003; 85025; 87086; 87186; 99284-25

== ENCOUNTER 2021-11-09 12:28 | Emergency (ER) | payer OTHER ==
[2021-11-09 12:51] VITALS: TEMP 97.8; BMI 31.0
[2021-11-09 13:52] LABS: URINE APPEARANCE CLEAR; URINE BILIRUBIN NEGATIVE (NEGATIVE); URINE COLOR YELLOW; URINE GLUCOSE (UA) NEGATIVE (NEGATIVE); URINE KETONE NEGATIVE (NEGATIVE); URINE LEUK ESTERASE NEGATIVE (NEGATIVE); URINE NITRITE NEGATIVE (NEGATIVE); URINE PROTEIN NEGATIVE (NEGATIVE); URINE UROBILINOGEN 0.2 mg/dL (0.2-1.0)
[2021-11-09 14:14] LABS: BASO % 0.9 % (0-2.0); EOS % 1.5 % (0-4.5); HEMATOCRIT 40.4 % (32.4-45.2); HEMOGLOBIN 13.4 GM/dL (10.7-15.3); LYMPH % 17.5 % (8-40); MCH 27.8 pg (25.7-33.7); MCHC 33.2 g/dl (32.0-36.0); MEAN CELL VOLUME 83.6 fl (80-96); MEAN PLT VOLUME 7.2 fl (7.5-11.1); MONO % 6.2 % (3.8-10.2); NEUT % 73.9 % (42.8-82.8); PLATELET COUNT 271 10^3/uL (134-434); RBC 4.83 M/mm3 (3.60-5.2); WHITE BLOOD COUNT 7.1 K/mm3 (4.0-10.0)
[2021-11-09 14:32] LABS: BLOOD UREA NITROGEN 16.2 mg/dL (7-18)
[2021-11-09 14:33] LABS: ALBUMIN 4.3 g/dl (3.4-5.0)
[2021-11-09 14:35] LABS: CREATININE 0.6 mg/dL (0.55-1.3)
[2021-11-09 14:37] LABS: BILIRUBIN,TOTAL 0.3 mg/dL (0.2-1); TOT PROT 7.4 g/dl (6.4-8.2)
[2021-11-09 17:37] VITALS: BP 157/89; PULSE 89
== END 2021-11-09 19:04 | disposition home or self-care (01) ==
LOC: JER 12:28 → JERFT 12:28
DX: R07.9 Chest pain, unspecified (principal); R68.89 Other general symptoms and signs
CPT/HCPCS: 36415; 80053; 81003; 83690; 84484; 85025; 87086; 93005; 93010; 99284-25

== ENCOUNTER 2021-11-12 22:33 | Emergency (ER) | payer OTHER ==
[2021-11-12 22:51] VITALS: BP 166/93; PULSE 93; TEMP 97.9; BMI 32.5
== END 2021-11-13 02:00 | disposition home or self-care (01) ==
LOC: JER 22:33
DX: F41.9 Anxiety disorder, unspecified (principal)
CPT/HCPCS: 93005; 93010; 99283-25

== ENCOUNTER 2021-12-05 17:31 | Emergency (ER) | payer OTHER ==
[2021-12-05 17:59] VITALS: BP 133/88; PULSE 93; TEMP 98.6; BMI 31.6
[2021-12-05] MEDS ORDERED: ALBUTEROL SO4 0.083% IH SOL 2.5 MG/3 ML VIAL.NEB. NEB ONE ×2 (18:32→18:55)
[2021-12-05] MEDS ORDERED: SODIUM CHLORIDE 0.9% 500 ML INFUS.BAG IV ONE (18:32)
[2021-12-05 20:08] LABS: BASO % 0.6 % (0-2.0); EOS % 1.6 % (0-4.5); HEMATOCRIT 37.7 % (32.4-45.2); HEMOGLOBIN 12.7 GM/dL (10.7-15.3); LYMPH % 21.1 % (8-40); MCH 28.1 pg (25.7-33.7); MCHC 33.6 g/dl (32.0-36.0); MEAN CELL VOLUME 83.6 fl (80-96); MEAN PLT VOLUME 7.1 fl (7.5-11.1); MONO % 7.8 % (3.8-10.2); NEUT % 68.9 % (42.8-82.8); PLATELET COUNT 303 10^3/uL (134-434); RBC 4.51 M/mm3 (3.60-5.2); RDW 13.8 % (11.6-15.6); WHITE BLOOD COUNT 7.6 K/mm3 (4.0-10.0)
[2021-12-05 20:33] LABS: ALBUMIN 3.9 g/dl (3.4-5.0); BLOOD UREA NITROGEN 19.8 mg/dL (7-18)
[2021-12-05 20:36] LABS: CREATININE 0.6 mg/dL (0.55-1.3)
[2021-12-05 20:37] LABS: BILIRUBIN,TOTAL 0.6 mg/dL (0.2-1); TOT PROT 6.9 g/dl (6.4-8.2)
[2021-12-05 21:22] LABS: EPI CELLS 19 /uL (0-25.1); HYALINE CASTS 0 /uL (0-3.1); PH,URINE 5.5 (5.0-8.0); URINE APPEARANCE CLEAR; URINE BACTERIA 123 /uL (0-1359); URINE BILIRUBIN NEGATIVE (NEGATIVE); URINE COLOR YELLOW; URINE GLUCOSE (UA) NEGATIVE (NEGATIVE); URINE KETONE NEGATIVE (NEGATIVE); URINE LEUK ESTERASE TRACE (NEGATIVE); URINE NITRITE NEGATIVE (NEGATIVE); URINE PROTEIN NEGATIVE (NEGATIVE); URINE RBC 5 /uL (0-23.9); URINE UROBILINOGEN 0.2 mg/dL (0.2-1.0); URINE WBC 31 /uL (0-25.8)
[2021-12-05] MEDS ORDERED: predniSONE 20 MG TABLET (UD) PO ONE (21:25)
[2021-12-05] MEDS ORDERED: predniSONE 20 MG TABLET (UD) ONE (21:26)
== END 2021-12-05 22:07 | disposition home or self-care (01) ==
LOC: JER 17:31
PROC: 3E0F7GC Introduction of Other Therapeutic Substance into Respiratory Tract, Via Natural or Artificial Opening (ICD-10-PCS; principal; 2021-12-05)
DX: R05.9 Cough, unspecified (principal)
CPT/HCPCS: 36415; 71046-TC-FY; 80053; 81003; 85025; 87086; 87186; 99284-25

== ENCOUNTER 2021-12-24 20:30 | Emergency (ER) | payer OTHER ==
[2021-12-24 21:22] VITALS: BP 154/89; PULSE 91; TEMP 98.4; BMI 33.6
[2021-12-25 00:52] LABS: EPI CELLS 9 /uL (0-25.1); HYALINE CASTS 0 /uL (0-3.1); PH,URINE 5.5 (5.0-8.0); URINE APPEARANCE CLEAR; URINE BACTERIA 51 /uL (0-1359); URINE BILIRUBIN NEGATIVE (NEGATIVE); URINE COLOR YELLOW; URINE GLUCOSE (UA) NEGATIVE (NEGATIVE); URINE KETONE NEGATIVE (NEGATIVE); URINE LEUK ESTERASE NEGATIVE (NEGATIVE); URINE NITRITE NEGATIVE (NEGATIVE); URINE PROTEIN NEGATIVE (NEGATIVE); URINE RBC 1 /uL (0-23.9); URINE UROBILINOGEN 0.2 mg/dL (0.2-1.0); URINE WBC 9 /uL (0-25.8)
== END 2021-12-25 01:58 | disposition home or self-care (01) ==
LOC: JER 20:30
DX: R10.9 Unspecified abdominal pain (principal)
CPT/HCPCS: 74176-TC; 81003; 87077; 87086; 99285-25